=== PATIENT | female | born 1945 | race Two or more races ===

== ENCOUNTER 2018-01-15 13:13 | Emergency (ER) | END 2018-01-15 16:19 | disposition home or self-care (01) ==

== ENCOUNTER 2019-02-20 20:00 | Inpatient (IN) | payer MEDICAID, OTHER ==
[~2019-02-20] VITALS: Ht 160 cm; Wt 76.3 kg
[~2019-02-20 20:00] MED LIST: IBUP800T48 PO
[2019-02-20] MEDS ORDERED: SOD CHLORIDE 0.9% 500 ML IV STA (23:11)
[2019-02-20] MEDS ORDERED: PIPER-TAZO 3.375 GM IV (PMX) 100 ML IVPB STA (23:11)
[2019-02-20] MEDS ORDERED: ONDANSETRON 4 MG INJ IV STA (23:11)
[2019-02-20] MEDS ORDERED: morphine 4 MG/ML VIAL IV STA (23:11)
[2019-02-20] MEDS ORDERED: VANCOMYCIN 1 GM (PMX) 250 ML IVPB ONE (23:30)
[2019-02-20] MEDS ORDERED: SOD CHLORIDE 0.9% 760 ML IV ONE (23:30)
[2019-02-20] MEDS ORDERED: NS + KCL 40 MEQ 1,000 ML IV SCH (23:49)
[2019-02-20] MEDS ORDERED: NS + KCL 30 MEQ 1,000 ML IV SCH (23:49)
[2019-02-20] MEDS ORDERED: D10/0.45% NACL + KCL 40 MEQ 1,000 ML IV SCH (23:49)
[2019-02-20] MEDS ORDERED: DEXTROSE 10%/0.45% NACL 1,000 ML IV SCH (23:49)
[2019-02-20] MEDS ORDERED: D10/0.45% NACL + KCL 30 MEQ 1,000 ML IV SCH (23:49)
[2019-02-20] MEDS ORDERED: SOD CHLORIDE 0.9% 1,000 ML IV SCH (23:49)
[2019-02-21] VITALS (15 sets, daily range): BP systolic 105–135; BP diastolic 54–64; PULSE 58–76; RESP 12–61
[2019-02-21] MEDS ORDERED: INSULIN REGULAR, HUMAN 100 UNIT in SOD CHLORIDE 0.9% 100 ML IV SCH ×2
[2019-02-21] MEDS ORDERED: LACTATED RINGER'S 760 ML IV ONE
[2019-02-21] MEDS: SOD CHLORIDE 0.9% 1,000 ML IV SCH ×2 (01:19→13:37)
[2019-02-21] MEDS ORDERED: DEXTROSE 50% 50 ML SYRINGE IV PRN ×6 (01:30→06:00)
[2019-02-21] MEDS ORDERED: ONDANSETRON 4 MG INJ IV PRN ×2 (01:30→21:30)
[2019-02-21] MEDS ORDERED: VANCOMYCIN IV PER PHARMACY XX SCH (01:30)
[2019-02-21] MEDS ORDERED: INSULIN HUMAN REGULAR 100 UNIT in SOD CHLORIDE 0.9% 99 ML IV SCH (02:00)
[2019-02-21] MEDS ORDERED: ONDANSETRON 4 MG INJ IV STA (02:09)
[2019-02-21] MEDS ORDERED: morphine 4 MG/ML VIAL IV STA (02:09)
--- NOTE | 2019-02-21 02:09 | ERD ---
ER Documentation Chief Complaint Chief Complaint R TOE SWELLING X'S 2 MONTHS; HX OF DM HPI This very pleasant 74-year female right toe swelling for 2 months. She is a history of diabetes mellitus. She is this infection has been going on and off. And that over the past 4 days had purulent drainage and increased pain. No fevers no chills. His fingersticks have been reading high at home. She states she is been compliant with her diabetic regimen. No other current complaints. ROS All systems reviewed and are negative except as per history of present illness. Medications Home Meds Active Scripts Ibuprofen* (Motrin*) 800 Mg Tab, 800 MG PO Q6H PRN for PAIN AND OR ELEVATED TEMP, #30 TAB Prov:SOPHIE PICHARDO MD 01/15/18 Allergies Allergies: Coded Allergies: No Known Allergy (Unverified , 01/15/18) PMhx/Soc History of Surgery: No Anesthesia Reaction: No Hx Neurological Disorder: No Hx Respiratory Disorders: No Hx Cardiac Disorders: No Hx Psychiatric Problems: No Hx Miscellaneous Medical Probl: Yes Hx Alcohol Use: No Hx Substance Use: No Hx Tobacco Use: No Physical Exam Vitals Vital Signs Date Temp Pulse Resp B/P (MAP) Pulse Ox O2 O2 Flow FiO2 Time Delivery Rate 02/20/19 97.8 81 18 136/64 98 20:07 (88) Physical Exam Const: No acute distress Head: Atraumatic Eyes: Normal Conjunctiva ENT: Normal External Ears, Nose and Mouth. Neck: Full range of motion. No meningismus. Resp: Clear to auscultation bilaterally Cardio: Regular rate and rhythm, no murmurs Abd: Soft, non tender, non distended. Normal bowel sounds Skin: No petechiae or rashes Back: No midline or flank tenderness Ext: Right great toe shows gangrenous changes with purulent drainage Neur: Awake and alert Psych: Normal Mood and Affect Result Diagram: 02/20/19 2311 02/20/19 2311 Results 24 hrs Laboratory Tests Test 02/20/19 23:04 02/20/19 23:11 02/20/19 23:22 02/20/19 23:23 POC Venous 1.6 mmol/L Lactate White Blood 9.3 10^3/ul Count Red Blood Count 4.25 10^6/ul Hemoglobin 12.2 g/dl Hematocrit 39.4 % Mean Corpuscular 92.7 fl Volume Mean Corpuscular 28.7 pg Hemoglobin Mean Corpuscular 31.0 g/dl Hemoglobin Jory nt Red Cell 13.4 % Distribution Width Platelet Count 312 10^3/UL Mean Platelet 10.4 fl Volume Immature 1.200 % Granulocytes % Neutrophils % 67.8 % Lymphocytes % 20.8 % Monocytes % 7.9 % Eosinophils % 1.7 % Basophils % 0.6 % Nucleated Red 0.0 /100WBC Blood Cells % Immature 0.110 10^3/ul Granulocytes # Neutrophils # 6.3 10^3/ul Lymphocytes # 1.9 10^3/ul Monocytes # 0.7 10^3/ul Eosinophils # 0.2 10^3/ul Basophils # 0.1 10^3/ul Nucleated Red 0.0 10^3/ul Blood Cells # Urine Color STRAW Urine Clarity CLEAR Urine pH 5.0 Urine Specific 1.017 [place] Urine Ketones NEGATIVE mg/dL Urine Nitrite NEGATIVE mg/dL Urine Bilirubin NEGATIVE mg/dL Urine NEGATIVE mg/dL Urobilinogen Urine Leukocyte NEGATIVE Ana Luisa/ul Esterase Urine Hemoglobin NEGATIVE mg/dL Urine Glucose 3+ mg/dL Urine Total NEGATIVE mg/dl Protein Sodium Level 132 mmol/L Potassium Level 4.8 mmol/L Chloride Level 102 mmol/L Carbon Dioxide 22 mmol/L Level Anion Gap 8 Blood Urea 46 mg/dl Nitrogen Creatinine 1.37 mg/dl Est Glomerular mL/min Filtrat Rate mL/min Glucose Level 620 mg/dl Hemoglobin A1c % Calcium Level 8.4 mg/dl Phosphorus Level 4.5 mg/dl Magnesium Level 2.2 mg/dl Total Bilirubin 0.2 mg/dl Direct Bilirubin 0.00 mg/dl Indirect 0.2 mg/dl Bilirubin Aspartate Amino 15 IU/L Transf (AST/SGOT ) Alanine 20 IU/L Aminotransferase (ALT/SGPT) Alkaline 222 IU/L Phosphatase Total Protein 6.0 g/dl Albumin 3.1 g/dl Globulin 2.90 g/dl Albumin/Globulin 1.06 Ratio Lipase 38 U/L Bedside Glucose > 595 mg/dL Blood Gas Blood venous Specimen Source Arterial Blood 02/20/2019 11:40 Date Drawn :05 PM Arterial Blood VENOUS LINE Gas Puncture Site Dread Test N/A Venous Blood pH 7.305 Venous Blood 43.4 mmHG pCO2 (Temp Corrected) Venous Blood pO2 29.8 mmHG (Temp Corrected) Venous Blood 21.1 mmol/L HCO3 Venous Blood 56.9 mmHG Oxygen Saturation Venous Blood -5.0 mmol/L Base Excess Venous Blood 11.7 g/dl Total Hemoglobin Venous Blood 56.3 % Oxyhemoglobin Venous Blood 0.2 % Methemoglobin Carboxyhemoglobi 0.9 % n Blood Gas 37.0 C Temperature Blood Gas ROOM AIR Modality FiO2 21.0 % Blood Gas MG Notified Whom Blood Gas 02/20/2019 11:46 Notified Time :45 PM Current Medications Medications Dose Sig/Chente Start Time Status Last (Trade) Ordered Route PRN Stop Time Admin Dose Reason Admin Sodium 500 ml @ Q1H STAT 02/20/19 DC 02/20/19 Chloride 500 mls/hr IV 23:11 23:19 02/21/19 00:10 Morphine 4 mg ONCE STAT 02/20/19 DC 02/20/19 Sulfate IV 23:11 23:19 (morphine) 02/20/19 23:13 Ondansetron 4 mg ONCE STAT 02/20/19 DC 02/20/19 HCl (Zofran IV 23:11 23:18 Inj) 02/20/19 23:13 Piperacillin 100 ml @ ONCE STAT 02/20/19 DC 02/20/19 Sod/ 200 mls/hr IVPB 23:11 23:18 Tazobactam 02/20/19 23:40 Sod Vancomycin 250 ml @ ONCE ONCE 02/20/19 DC 02/21/19 HCl 125 mls/hr IVPB 23:30 00:05 02/21/19 01:29 Sodium 760 ml @ ONCE ONCE 02/20/19 DC 02/21/19 Chloride 760 mls/hr IV 23:30 00:05 02/21/19 00:29 Potassium 1,000 ml @ Q0M IV 02/20/19 DC Chloride/Sodi 0 mls/hr 23:49 um Chloride 02/21/19 01:19 Potassium 1,000 ml @ Q0M IV 02/20/19 DC Chloride/Dext 0 mls/hr 23:49 cher/ Sod Cl 02/21/19 01:19 Potassium 1,000 ml @ Q0M IV 02/20/19 DC Chloride/Sodi 0 mls/hr 23:49 um Chloride 02/21/19 01:19 Potassium 1,000 ml @ Q0M IV 5/28/19 DC Chloride/Dext 0 mls/hr 23:49 cher/ Sod Cl 02/21/19 01:19 Sodium 1,000 ml @ Q0M IV 02/20/19 DC Chloride 0 mls/hr 23:49 02/21/19 01:19 1,000 ml @ Q0M IV 02/20/19 DC Dextrose/Sodi 0 mls/hr 23:49 um Chloride 02/21/19 01:19 Insulin 101 ml @ ER DKA 02/21/19 DC Human 7.63 mls/hr PROTOCOL IV 00:00 Regular 100 02/21/19 01:19 unit/ Sodium Chloride Lactated 760 ml @ ONCE ONCE 02/21/19 DC 02/21/19 Ringer's 760 mls/hr IV 00:00 00:05 02/21/19 01:19 HYPOGLYCEM 02/21/19 DC Miscellaneous HYPOGLYCEMIA PROTOCOL PRN 00:00 TREATMENT XX 02/21/19 01:19 Information .HYPOGLYCEMIA (* PROTOCOL Miscellaneous Pharmacy Order) Dextrose 50 ml Q15M PRN 02/21/19 DC (D50w IV 00:00 Syringe) .DECREASED 02/21/19 01:19 GLUCOSE Dextrose 25 ml Q15M PRN 02/21/19 DC (D50w IV 00:00 Syringe) .DECREASED 02/21/19 01:19 GLUCOSE Sodium 1,000 ml @ Q10H IV 02/21/19 Chloride 100 mls/hr 01:19 Ondansetron 4 mg Q6H PRN 02/21/19 HCl (Zofran IV NAUSEA 01:30 Inj) AND/OR VOMITING 650 mg Q6H PRN 02/21/19 Acetaminophen PO PAIN 01:30 (Tylenol LEVEL 1-3 OR Liquid) FEVER 1 tab Q6H PRN 02/21/19 Acetaminophen PO PAIN 01:30 / LEVEL 4-6 Hydrocodone Bitart ([place] (5/325)) 40 mg DAILY@06 02/21/19 DC Pantoprazole IV 06:00 (Protonix 02/21/19 06:00 Iv) Discontinue PROTOCOL 02/21/19 DC Miscellaneous all previ... ONCE XX 01:30 02/21/19 01:31 Information (* Miscellaneous Pharmacy Order) Diagnostic 1 ea Q1H XX 02/21/19 Test (Pha) 01:30 (Accu-Chek) Insulin 100 ml @ 0 PER 02/21/19 Human mls/hr PROTOCOL IV 02:00 Regular 100 unit/ Sodium Chloride Treatment Per 02/21/19 Miscellaneous of protocol XX 01:30 Hypoglycemia: Information 1.BG 51... (* Miscellaneous Pharmacy Order) Dextrose 25 ml Q15M PRN 02/21/19 (D50w IV 01:30 Syringe) .DECREASED GLUCOSE Dextrose 50 ml Q15M PRN 02/21/19 (D50w IV 01:30 Syringe) .DECREASED GLUCOSE Famotidine 20 mg DAILY IV 02/21/19 (Pepcid Iv) 09:00 Vancomycin VANCOMYCIN PER 02/21/19 HCl (Vanco PER PHARMACY PROTOCOL XX 01:30 Iv Per Pharmacy) Piperacillin 100 ml @ Q6 IVPB 02/21/19 Sod/ 200 mls/hr 06:00 Tazobactam Sod Vancomycin 250 ml @ Q24H IVPB 02/21/19 HCl 125 mls/hr 22:00 Procedures/MDM Medical decision m[age]-year-old female who has a previously infected diabetic foot ulcer, rule out osteomyelitis. At this point patient has been started on antibiotics post blood cultures. Blood sugar also read high, and VBG showed early acidosis and lowered bicarbonate. She was started on DKA protocol secondary to likely early diabetic ketoacidosis triggered by infection. Patient will be admitted to the intensive care unit to Dr. Gomez. X-ray Toe 2V Interpreted by me: Bones: [No fracture] Joints: [No dislocation] Foreign body: [None] Critical Care: Time: 45 minutes, independent of any separately billable procedural time Treatments/Evaluations: Close monitoring and treatment of unstable vital signs, cardiorespiratory, and neurologic status, while maintaining tight balance of fluid, respiratory, and cardiac interventions. Departure Diagnosis: Primary Impression: Diabetic foot ulcer Diabetic foot ulcer location: unspecified part of foot Diabetes mellitus type: type 2 Laterality: right Non-pressure ulcer stage: unspecified non-pressure ulcer stage Qualified Codes: E11.621 - Type 2 diabetes mellitus with foot ulcer; L97.519 - Non-pressure chronic ulcer of other part of right foot with unspecified severity Additional Impression: Diabetic ketoacidosis Diabetes mellitus type: type 2 Diabetes mellitus complication detail: without coma Qualified Codes: E11.10 - Type 2 diabetes mellitus with ketoacidosis without coma Condition: Serious ELY MCKNIGHT February 21, 2019 02:09
[2019-02-21] MEDS: ACCU-CHEK XX SCH ×5 (03:17→06:29)
[2019-02-21] MEDS ORDERED: INSU100C SQ (03:29)
[2019-02-21] MEDS ORDERED: ATOR40TA68 PO (03:29)
[2019-02-21] MEDS ORDERED: CARV3.1260 PO (03:29)
[2019-02-21] MEDS ORDERED: LOSA50TA14 PO (03:29)
[2019-02-21] MEDS ORDERED: MONT10TA24 PO (03:29)
[2019-02-21] MEDS ORDERED: DOCU-159 PO (03:29)
[2019-02-21] MEDS ORDERED: FER325 PO (03:29)
[2019-02-21] MEDS ORDERED: LEVO137T3 PO (03:29)
[2019-02-21] MEDS ORDERED: AMLO-147 PO (03:29)
[2019-02-21] MEDS ORDERED: LANT3I SQ (03:29)
[2019-02-21] MEDS ORDERED: CHOL200078 PO (03:29)
--- NOTE | 2019-02-21 05:39 | HP ---
Date/Time of Note Date/Time of Note DATE: 02/21/19 TIME: 05:32 Assessment/Plan VTE Prophylaxis SCD applied (from Nsg): Yes (Left lower extremity) Pharmacological prophylaxis: NA/contraindicated Pharm contraindication: low risk/ambulating Lines/Catheters IV Catheter Type (from Nrsg): Saline Lock Assessment/Plan Hospital Course This is a 74 female being admitted to the ICU floor for: #1 Poorly controlled diabetes mellitus: Patient presents with blood sugars in the 600s. Patient does not appear to be in DKA. Initiate insulin GTT, monitor patient in the ICU. Will downgrade the patient to telemetry once we can better control patient's blood sugars. We will check hemoglobin A 1C. Patient does take Lantus 53 units at night. check a1c. #2 right great toe gas gangrene: X-ray: Infectious process at the right great toe with soft tissue air suggesting gas gangrene. Patient does have tenderness to the right great toe, does appear cyanotic. At the current time with the patient on broad-spectrum antibiotics of vancomycin and Zosyn. await culture results. venous doppler/arterial dopplers of bilateral lower extremities. Consult cardiology for preop clearance. Patient n.p.o. at the current time as patient may likely go to the operative room today if she is cleared by cardiology. #3. Coronary artery disease: History of stents. History of NH. Continue beta- carol, statin. Will consult cardiology for preop clearance. #4 hypertension: Resume patient's home medication #5 diabetes mellitus: We will check hemoglobin A 1C, currently on insulin sliding scale as per #1. #6 hypothyroidism: Continue levothyroxine, check TSH #7 hyperlipidemia: Continue statin, check lipid panel #8 DVT GI prophylaxis: SCDs to the left lower extremity, Protonix Further treatment strategy will be implemented as per the clinical course. Result Diagram: 02/20/19231002/20/191 Results 24hrs Laboratory Tests Test 02/20/19 23:04 02/20/19 23:11 02/20/19 23:22 02/20/19 23:23 POC Venous 1.6 Lactate White Blood Count 9.3 # Red Blood Count 4.25 Hemoglobin 12.2 Hematocrit 39.4 Mean Corpuscular 92.7 Volume Mean Corpuscular 28.7 L Hemoglobin Mean Corpuscular 31.0 L Hemoglobin Concen t Red Cell 13.4 Distribution Width Platelet Count 312 # Mean Platelet 10.4 Volume Immature 1.200 H Granulocytes % Neutrophils % 67.8 Lymphocytes % 20.8 Monocytes % 7.9 Eosinophils % 1.7 Basophils % 0.6 Nucleated Red 0.0 Blood Cells % Immature 0.110 H Granulocytes # Neutrophils # 6.3 Lymphocytes # 1.9 Monocytes # 0.7 Eosinophils # 0.2 Basophils # 0.1 Nucleated Red 0.0 Blood Cells # Urine Color STRAW Urine Clarity CLEAR Urine pH 5.0 Urine Specific 1.017 [place] Urine Ketones NEGATIVE Urine Nitrite NEGATIVE Urine Bilirubin NEGATIVE Urine NEGATIVE Urobilinogen Urine Leukocyte NEGATIVE Esterase Urine Hemoglobin NEGATIVE Urine Glucose 3+ H Urine Total NEGATIVE Protein Sodium Level 132 L Potassium Level 4.8 Chloride Level 102 Carbon Dioxide 22 Level Anion Gap 8 Blood Urea 46 H Nitrogen Creatinine 1.37 H Est Glomerular Filtrat Rate mL/min Glucose Level 620 *H Hemoglobin A1c Calcium Level 8.4 Phosphorus Level 4.5 Magnesium Level 2.2 Total Bilirubin 0.2 Direct Bilirubin 0.00 Indirect 0.2 Bilirubin Aspartate Amino 15 Transf (AST/SGOT) Alanine 20 Aminotransferase (ALT/SGPT) Alkaline 222 H Phosphatase Total Protein 6.0 L Albumin 3.1 L Globulin 2.90 Albumin/Globulin 1.06 Ratio Lipase 38 Bedside Glucose > 595 *H Blood Gas Blood venous Specimen Source Arterial Blood 02/20/2019 11:40: Date Drawn 05 PM Arterial Blood VENOUS LINE Gas Puncture Site Dread Test N/A Venous Blood pH 7.305 L Venous Blood pCO2 43.4 (Temp Corrected) Venous Blood pO2 29.8 H (Temp Corrected) Venous Blood HCO3 21.1 L Venous Blood 56.9 Oxygen Saturation Venous Blood Base -5.0 Excess Venous Blood 11.7 Total Hemoglobin Venous Blood 56.3 Oxyhemoglobin Venous Blood 0.2 Methemoglobin Carboxyhemoglobin 0.9 Blood Gas 37.0 Temperature Blood Gas ROOM AIR Modality FiO2 21.0 Blood Gas MG Notified Whom Blood Gas 02/20/2019 11:46: Notified Time 45 PM Test 02/21/19 02:07 02/21/19 03:20 02/21/19 04:52 Bedside Glucose 417 *H 359 H 267 H HPI/ROS Admit Date/Time Admit Date/Time Hx of Present Illness Chief complaint: Right great toe swelling x4 days this is a 74-year-old female with past medical history of hypertension, diabetes mellitus, hyperlipidemia, hypothyroidism,Arthritis, coronary disease who presents to the emergency department complaining of right toe pain x4 days. Patient reports that she has noticed right great toe swelling and discoloration over the last 4 days. She also has swelling of her anterior foot and tenderness to palpation. She denies any fevers. But does report chills. She has noticed that her great toe has started to become blue. She recently returned from [place]. Allergies: NKDA Medications: Amlodipine 10 mg daily Atorvastatin 40 mg nightly Carvedilol 3.125 p.o. twice daily daily Colace 100 mg p.o. daily Ferrous sulfate 325 mg p.o. daily Lantus 53 units nightly Levothyroxine 137 mcg p.o. daily Losartan 50 mg p.o. daily Montelukast 10 mg p.o. daily Insulin lispro 4 units subcu a.m. Vitamin D3 ROS Const: As per HPI Eyes : No pain discharge or redness or change in visual acuity ENT: No pain, sore throat, congestion, congestion, dysphagia or discharge Respiratory: No shortness of breath, cough, sputum, wheezing, or pleuritic pain Cardiovascular: No chest pain, palpitation, PND, or edema GI : no change in appetite, abdominal pain, nausea, vomiting, diarrhea, constipation, or change in the color his stool Genitourinary: No dysuria, hematuria, flank pain , discharge or CVA tenderness Musculoskeletal: As per HPI Skin: As per HPI Neuro: No headache, dizziness, syncope, seizure, focal weakness Endocrine: No polyuria, polydipsia, temperature intolerance Psych: No hallucination, depression, anxiety or suicidal ideation PMH/Family/Social Past Medical History Hypertension, diabetes mitis, hyperlipidemia, hypothyroidism, coronary artery disease, arthritis, history of NH Medications Current Medications Sodium Chloride 1,000 ml @ 100 mls/hr Q10H IV Last administered on 02/21/19at :19; Admin Dose 100 MLS/HR; Start 02/21/19 at 01:19 Ondansetron HCl (Zofran Inj) 4 mg Q6H PRN IV NAUSEA AND/OR VOMITING; Start 02/21/19 at 01:30 Acetaminophen (Tylenol Liquid) 650 mg Q6H PRN PO PAIN LEVEL 1-3 OR FEVER; Start 02/21/19 at 01:30 Acetaminophen/ Hydrocodone Bitart ([place] (5/325)) 1 tab Q6H PRN PO PAIN LEVEL 4-6; Start 02/21/19 at 01:30 Diagnostic Test (Pha) (Accu-Chek) 1 ea Q1H XX Last administered on 02/21/19at 04:54; Admin Dose 1 EA; Start 02/21/19 at 01:30 Insulin Human Regular 100 unit/ Sodium Chloride 100 ml @ 0 mls/hr PER PROTOCOL IV Last administered on 02/21/19at 03:24; Admin Dose 0 MLS/HR; Start 02/21/19 at 02:00 Miscellaneous Information (* Miscellaneous Pharmacy Order) Treatment of Hypoglycemia: 1.BG 51... Per protocol XX ; Start 02/21/19 at 01:30 Dextrose (D50w Syringe) 25 ml Q15M PRN IV .DECREASED GLUCOSE; Start 02/21/19 at 01:30 Dextrose (D50w Syringe) 50 ml Q15M PRN IV .DECREASED GLUCOSE; Start 02/21/19 at 01:30 Famotidine (Pepcid Iv) 20 mg DAILY IV ; Start 02/21/19 at 09:00 Vancomycin HCl (Vanco Iv Per Pharmacy) VANCOMYCIN PER PHARMACY PER PROTOCOL XX ; Start 02/21/19 at 01:30 Piperacillin Sod/ Tazobactam Sod 100 ml @ 200 mls/hr Q6 IVPB ; Start 02/21/19 at 06:00 Vancomycin HCl 250 ml @ 125 mls/hr Q24H IVPB ; Start 02/21/19 at 22:00 Coded Allergies: No Known Allergy (Unverified , 02/21/19) Past Surgical History Coronary artery disease status post stenting Family History Significant Family History: no pertinent family hx Social History Alcohol Use: none Smoking Status: Never smoker Drug Use: none Exam/Review of Systems Vital Signs Vitals Vital Signs Date Temp Pulse Resp B/P (MAP) Pulse Ox O2 O2 Flow FiO2 Time Delivery Rate 02/20/19 97.8 81 18 136/64 98 20:07 (88) Intake and Output 02/20/19 02/20/19 02/21/19 1515:00 23:00 07:00 IntakeIntake Total 2370 ml BalanceBalance 2370 ml Exam Exam General: Patient is pleasant female currently lying in bed in moderate distress from pain in her right toe HEENT: Atraumatic, normocephalic. The pupils are equal, round and reactive. Extraocular motor are intact Neck: Supple with full range of motion. No rigidity or meningismus Chest: Nontender Lungs: Clear to auscultation bilaterally no crackles rales or wheezing Heart: Normal S1-S2, Regular rhythm and rate. Abdomen: Soft , nontender, nondistended , bowel sounds are present. No guarding no rebound tenderness , No masses or organomegaly. No costovertebral temporal angle mass Extremities: Normal to inspection, no edema no cyanosis Vascular: Diminished distal pedal pulses of the right lower extremity Skin: Cyanosis noted to the right great toe, tender to palpation, swelling noted of the anterior right foot and tender to palpation Neurologic: Normal mental status, speech normal, cranial nerves II through XII are intact, motor and sensory are intact, no focal weakness Additional Comments PROCEDURE: X-ray right great toe. CLINICAL INDICATION: Right great toe pain. TECHNIQUE: AP, lateral and oblique views of the right great toe. COMPARISON: None. FINDINGS: Soft tissue defect and swelling are seen over the right toe, with soft tissue emphysema seen at the medial aspect of the base of the first distal phalanx, suggesting an infectious process. No definite osseous destruction or erosions are seen to suggest osteomyelitis in this region. If there is strong persistent concern for osteomyelitis an MRI examination would be of further use. Vascular calcifications. No acute fracture dislocation. Plantar and posterior dorsal calcaneal enthesophytes are present. IMPRESSION: 1. Infectious process at the right great toe with soft tissue air suggesting gas gangrene. 2. No plain film evidence of osteomyelitis. 3. If there is strong persistent concern for osteomyelitis an MRI examination would be of further use. RPTAT: [facility] Physician Baldev Date Time Electronically viewed and signed by Physician Baldev on 02/21/2019 00:24 RS/ CC: ELY MCKNIGHT [id number] IGOR SCHWAB February 21, 2019 05:39
[2019-02-21] MEDS: PIPER-TAZO 3.375 GM IV (PMX) 100 ML IVPB SCH ×3 (05:57→17:08)
[2019-02-21] MEDS ORDERED: GLUCOSE GEL 15 GRAM TUBE BUCCAL PRN (06:00)
[2019-02-21] MEDS ORDERED: GLUCAGON 1 MG INJ IM PRN (06:00)
[2019-02-21] MEDS ORDERED: PANTOPRAZOLE 40 MG INJ IV SCH (06:00)
[2019-02-21] MEDS ORDERED: INSULIN GLARGINE [LANTus] (100 UNITS/ML) SYG SC ONE (06:00)
[2019-02-21] MEDS ORDERED: GLUCOSE GEL 15 GRAM TUBE PO PRN ×2 (06:00)
[2019-02-21] MEDS: morphine 4 MG/ML VIAL IV PRN (06:48)
[2019-02-21] MEDS: INSULIN ASPART [NOVOLOG] 3 ML PEN SC SCH ×5 (08:00→22:56)
[2019-02-21] MEDS: LEVOTHYROXINE 137 MCG TAB PO SCH (08:08)
[2019-02-21] MEDS: DOCUSATE SODIUM 100 MG CAP PO SCH (09:00)
[2019-02-21] MEDS ORDERED: AMLODIPINE 10 MG TAB PO SCH (09:00)
[2019-02-21] MEDS ORDERED: INSULIN LISPRO 4 UNIT SQ SCH (09:00)
[2019-02-21] MEDS: FERROUS SULFATE (EC) 325 MG TAB PO SCH (09:31)
[2019-02-21] MEDS: FAMOTIDINE 20 MG INJ IV SCH (09:31)
--- NOTE | 2019-02-21 10:25 | PN ---
Date/Time of Note Date/Time of Note DATE: 02/21/19 TIME: 10:15 Assessment/Plan VTE Prophylaxis SCD applied (from Nsg): Yes (Left lower extremity) Pharmacological prophylaxis: NA/contraindicated Pharm contraindication: surgical contra Lines/Catheters IV Catheter Type (from Nrsg): Saline Lock Assessment/Plan Assessment/Plan 1. Right great toe gas gangrene - seen on Xray - Podiatry consultation appreciated and plans for OR today once cleared by Cardiology for intervention - Continue on broad spectrum antibiotics - Arterial imaging studies ordered 2. Poorly controlled diabetes mellitus - A1c noted - Will continue home Lantus and adjust as needed - initially on insulin drip but weaned off with improvement in sugars - once infection improves, hopefully help with glucose control 3. h/o CAD s/p PCI - continue home medications - Cardiology consultation placed for cardiac clearance for intervention 4. HTN - continue home medications with holding parameters 5. hypothyroidism - TSH elevated and will check T3 and T4 levels. may be elevated in setting of sepsis - will adjust levothyroxine if needed 6. Hyperlipidemia - continue statin 7. Disposition - Will keep NPO for anticipated procedure this afternoon. Cardiac clearance pending Result Diagram: 02/21/19 0539 02/21/19 0541 Results 24hrs Laboratory Tests Test 02/20/19 23:04 02/20/19 23:11 02/20/19 23:22 02/20/19 23:23 POC Venous 1.6 Lactate White Blood Count 9.3 # Red Blood Count 4.25 Hemoglobin 12.2 Hematocrit 39.4 Mean Corpuscular 92.7 Volume Mean Corpuscular 28.7 L Hemoglobin Mean Corpuscular 31.0 L Hemoglobin Concen t Red Cell 13.4 Distribution Width Platelet Count 312 # Mean Platelet 10.4 Volume Immature 1.200 H Granulocytes % Neutrophils % 67.8 Lymphocytes % 20.8 Monocytes % 7.9 Eosinophils % 1.7 Basophils % 0.6 Nucleated Red 0.0 Blood Cells % Immature 0.110 H Granulocytes # Neutrophils # 6.3 Lymphocytes # 1.9 Monocytes # 0.7 Eosinophils # 0.2 Basophils # 0.1 Nucleated Red 0.0 Blood Cells # Urine Color STRAW Urine Clarity CLEAR Urine pH 5.0 Urine Specific 1.017 [place] Urine Ketones NEGATIVE Urine Nitrite NEGATIVE Urine Bilirubin NEGATIVE Urine NEGATIVE Urobilinogen Urine Leukocyte NEGATIVE Esterase Urine Hemoglobin NEGATIVE Urine Glucose 3+ H Urine Total NEGATIVE Protein Sodium Level 132 L Potassium Level 4.8 Chloride Level 102 Carbon Dioxide 22 Level Anion Gap 8 Blood Urea 46 H Nitrogen Creatinine 1.37 H Est Glomerular Filtrat Rate mL/min Glucose Level 620 *H Hemoglobin A1c Calcium Level 8.4 Phosphorus Level 4.5 Magnesium Level 2.2 Total Bilirubin 0.2 Direct Bilirubin 0.00 Indirect 0.2 Bilirubin Aspartate Amino 15 Transf (AST/SGOT) Alanine 20 Aminotransferase (ALT/SGPT) Alkaline 222 H Phosphatase Total Protein 6.0 L Albumin 3.1 L Globulin 2.90 Albumin/Globulin 1.06 Ratio Lipase 38 Bedside Glucose > 595 *H Blood Gas Blood venous Specimen Source Arterial Blood 02/20/2019 11:40: Date Drawn 05 PM Arterial Blood VENOUS LINE Gas Puncture Site Dread Test N/A Venous Blood pH 7.305 L Venous Blood pCO2 43.4 (Temp Corrected) Venous Blood pO2 29.8 H (Temp Corrected) Venous Blood HCO3 21.1 L Venous Blood 56.9 Oxygen Saturation Venous Blood Base -5.0 Excess Venous Blood 11.7 Total Hemoglobin Venous Blood 56.3 Oxyhemoglobin Venous Blood 0.2 Methemoglobin Carboxyhemoglobin 0.9 Blood Gas 37.0 Temperature Blood Gas ROOM AIR Modality FiO2 21.0 Blood Gas MG Notified Whom Blood Gas 02/20/2019 11:46: Notified Time 45 PM Test 02/21/19 02:07 02/21/19 03:20 02/21/19 04:52 02/21/19 05:39 Bedside Glucose 417 *H 359 H 267 H 192 White Blood Count 8.5 Red Blood Count 3.86 L Hemoglobin 11.1 L Hematocrit 35.2 L Mean Corpuscular 91.2 Volume Mean Corpuscular 28.8 L Hemoglobin Mean Corpuscular 31.5 L Hemoglobin Concen t Red Cell 13.3 Distribution Width Platelet Count 278 Mean Platelet 10.0 Volume Immature 1.400 H Granulocytes % Neutrophils % 63.9 Lymphocytes % 23.3 Monocytes % 8.8 Eosinophils % 1.9 Basophils % 0.7 Nucleated Red 0.0 Blood Cells % Immature 0.120 H Granulocytes # Neutrophils # 5.4 Lymphocytes # 2.0 Monocytes # 0.8 Eosinophils # 0.2 Basophils # 0.1 Nucleated Red 0.0 Blood Cells # Test 02/21/19 05:41 02/21/19 06:26 02/21/19 08:04 02/21/19 09:34 Sodium Level 140 Potassium Level 4.3 Chloride Level 114 H Carbon Dioxide 21 Level Anion Gap 5 Blood Urea 34 #H Nitrogen Creatinine 1.02 H Est Glomerular Filtrat Rate mL/min Glucose Level 195 # Hemoglobin A1c > 14.0 H Calcium Level 7.7 L Magnesium Level 2.0 Total Bilirubin 0.2 Direct Bilirubin 0.00 Indirect 0.2 Bilirubin Aspartate Amino 13 L Transf (AST/SGOT) Alanine 21 Aminotransferase (ALT/SGPT) Alkaline 150 H Phosphatase Total Protein 5.2 L Albumin 2.5 L Globulin 2.70 Albumin/Globulin 0.92 Ratio Triglycerides 170 H Level Cholesterol Level 160 LDL Cholesterol, 83 Calculated HDL Cholesterol 43 Cholesterol/HDL 3.7 Ratio Thyroid 32.100 H Stimulating Hormone (TSH) Bedside Glucose 124 132 123 Subjective 24 Hr Interval Summary Free Text/Dictation Patient states pain has improved after given Morphine. Denies any other issues or new complaints. Plans for I&D this afternoon once cleared by Cardiology. Family at bedside. Exam/Review of Systems Exam Vitals Vital Signs Date Temp Pulse Resp B/P (MAP) Pulse Ox O2 O2 Flow FiO2 Time Delivery Rate 02/21/19 66 16 119/58 96 Room Air 09:04 (78) 02/20/19 97.8 20:07 Intake and Output 02/20/19 02/20/19 02/21/19 1515:00 23:00 07:00 IntakeIntake Total 2370 ml BalanceBalance 2370 ml Exam General: no acute distress. answering questions appropriately Neck: Supple Chest: Nontender Lungs: Clear to auscultation bilaterally no crackles rales or wheezing Heart: Normal S1-S2, Regular rhythm and rate. Abdomen: Soft , nontender, nondistended , bowel sounds are present. No guarding no rebound tenderness Extremities: Normal to inspection, no edema no cyanosis Skin: White discoloration right toe with lesion appreciated. tender to palpation, swelling noted of the anterior right foot and tender to palpation, diminished pulse Results Results 24hrs Laboratory Tests Test 02/20/19 23:04 02/20/19 23:11 02/20/19 23:22 02/20/19 23:23 POC Venous 1.6 Lactate White Blood Count 9.3 # Red Blood Count 4.25 Hemoglobin 12.2 Hematocrit 39.4 Mean Corpuscular 92.7 Volume Mean Corpuscular 28.7 L Hemoglobin Mean Corpuscular 31.0 L Hemoglobin Concen t Red Cell 13.4 Distribution Width Platelet Count 312 # Mean Platelet 10.4 Volume Immature 1.200 H Granulocytes % Neutrophils % 67.8 Lymphocytes % 20.8 Monocytes % 7.9 Eosinophils % 1.7 Basophils % 0.6 Nucleated Red 0.0 Blood Cells % Immature 0.110 H Granulocytes # Neutrophils # 6.3 Lymphocytes # 1.9 Monocytes # 0.7 Eosinophils # 0.2 Basophils # 0.1 Nucleated Red 0.0 Blood Cells # Urine Color STRAW Urine Clarity CLEAR Urine pH 5.0 Urine Specific 1.017 [place] Urine Ketones NEGATIVE Urine Nitrite NEGATIVE Urine Bilirubin NEGATIVE Urine NEGATIVE Urobilinogen Urine Leukocyte NEGATIVE Esterase Urine Hemoglobin NEGATIVE Urine Glucose 3+ H Urine Total NEGATIVE Protein Sodium Level 132 L Potassium Level 4.8 Chloride Level 102 Carbon Dioxide 22 Level Anion Gap 8 Blood Urea 46 H Nitrogen Creatinine 1.37 H Est Glomerular Filtrat Rate mL/min Glucose Level 620 *H Hemoglobin A1c Calcium Level 8.4 Phosphorus Level 4.5 Magnesium Level 2.2 Total Bilirubin 0.2 Direct Bilirubin 0.00 Indirect 0.2 Bilirubin Aspartate Amino 15 Transf (AST/SGOT) Alanine 20 Aminotransferase (ALT/SGPT) Alkaline 222 H Phosphatase Total Protein 6.0 L Albumin 3.1 L Globulin 2.90 Albumin/Globulin 1.06 Ratio Lipase 38 Bedside Glucose > 595 *H Blood Gas Blood venous Specimen Source Arterial Blood 02/20/2019 11:40: Date Drawn 05 PM Arterial Blood VENOUS LINE Gas Puncture Site Dread Test N/A Venous Blood pH 7.305 L Venous Blood pCO2 43.4 (Temp Corrected) Venous Blood pO2 29.8 H (Temp Corrected) Venous Blood HCO3 21.1 L Venous Blood 56.9 Oxygen Saturation Venous Blood Base -5.0 Excess Venous Blood 11.7 Total Hemoglobin Venous Blood 56.3 Oxyhemoglobin Venous Blood 0.2 Methemoglobin Carboxyhemoglobin 0.9 Blood Gas 37.0 Temperature Blood Gas ROOM AIR Modality FiO2 21.0 Blood Gas MG Notified Whom Blood Gas 02/20/2019 11:46: Notified Time 45 PM Test 02/21/19 02:07 02/21/19 03:20 02/21/19 04:52 02/21/19 05:39 Bedside Glucose 417 *H 359 H 267 H 192 White Blood Count 8.5 Red Blood Count 3.86 L Hemoglobin 11.1 L Hematocrit 35.2 L Mean Corpuscular 91.2 Volume Mean Corpuscular 28.8 L Hemoglobin Mean Corpuscular 31.5 L Hemoglobin Concen t Red Cell 13.3 Distribution Width Platelet Count 278 Mean Platelet 10.0 Volume Immature 1.400 H Granulocytes % Neutrophils % 63.9 Lymphocytes % 23.3 Monocytes % 8.8 Eosinophils % 1.9 Basophils % 0.7 Nucleated Red 0.0 Blood Cells % Immature 0.120 H Granulocytes # Neutrophils # 5.4 Lymphocytes # 2.0 Monocytes # 0.8 Eosinophils # 0.2 Basophils # 0.1 Nucleated Red 0.0 Blood Cells # Test 02/21/19 05:41 02/21/19 06:26 02/21/19 08:04 02/21/19 09:34 Sodium Level 140 Potassium Level 4.3 Chloride Level 114 H Carbon Dioxide 21 Level Anion Gap 5 Blood Urea 34 #H Nitrogen Creatinine 1.02 H Est Glomerular Filtrat Rate mL/min Glucose Level 195 # Hemoglobin A1c > 14.0 H Calcium Level 7.7 L Magnesium Level 2.0 Total Bilirubin 0.2 Direct Bilirubin 0.00 Indirect 0.2 Bilirubin Aspartate Amino 13 L Transf (AST/SGOT) Alanine 21 Aminotransferase (ALT/SGPT) Alkaline 150 H Phosphatase Total Protein 5.2 L Albumin 2.5 L Globulin 2.70 Albumin/Globulin 0.92 Ratio Triglycerides 170 H Level Cholesterol Level 160 LDL Cholesterol, 83 Calculated HDL Cholesterol 43 Cholesterol/HDL 3.7 Ratio Thyroid 32.100 H Stimulating Hormone (TSH) Bedside Glucose 124 132 123 Medications Medication Current Medications Sodium Chloride 1,000 ml @ 100 mls/hr Q10H IV Last administered on 02/21/19at 01:19; Admin Dose 100 MLS/HR; Start 02/21/19 at 01:19 Ondansetron HCl (Zofran Inj) 4 mg Q6H PRN IV NAUSEA AND/OR VOMITING Last administered on 02/21/19at 06:47; Admin Dose 4 MG; Start 02/21/19 at 01:30 Acetaminophen (Tylenol Liquid) 650 mg Q6H PRN PO PAIN LEVEL 1-3 OR FEVER; Start 02/21/19 at 01:30 Acetaminophen/ Hydrocodone Bitart ([place] (5/325)) 1 tab Q6H PRN PO PAIN LEVEL 4-6; Start 02/21/19 at 01:30 Diagnostic Test (Pha) (Accu-Chek) 1 ea Q1H XX Last administered on 02/21/19at 0 6:29; Admin Dose 1 EA; Start 02/21/19 at 01:30 Insulin Human Regular 100 unit/ Sodium Chloride 100 ml @ 0 mls/hr PER PROTOCOL IV Last administered on 02/21/19at 03:24; Admin Dose 0 MLS/HR; Start 02/21/19 at 02:00 Miscellaneous Information (* Miscellaneous Pharmacy Order) Treatment of Hypoglycemia: 1.BG 51... Per protocol XX ; Start 02/21/19 at 01:30 Dextrose (D50w Syringe) 25 ml Q15M PRN IV .DECREASED GLUCOSE; Start 02/21/19 at 01:30 Dextrose (D50w Syringe) 50 ml Q15M PRN IV .DECREASED GLUCOSE; Start 02/21/19 at 01:30 Famotidine (Pepcid Iv) 20 mg DAILY IV Last administered on 02/21/19at 09:31; Admin Dose 20 MG; Start 02/21/19 at 09:00 Vancomycin HCl (Vanco Iv Per Pharmacy) VANCOMYCIN PER PHARMACY PER PROTOCOL XX ; Start 02/21/19 at 01:30 Piperacillin Sod/ Tazobactam Sod 100 ml @ 200 mls/hr Q6 IVPB Last administered on 02/21/19at 05:57; Admin Dose 200 MLS/HR; Start 02/21/19 at 06:00 Vancomycin HCl 250 ml @ 125 mls/hr Q24H IVPB ; Start 02/21/19 at 22:00 Morphine Sulfate (morphine) 4 mg Q4H PRN IV SEVERE PAIN LEVEL 7-10 Last administered on 02/21/19at 06:48; Admin Dose 4 MG; Start 02/21/19 at 05:30 Amlodipine Besylate (Norvasc) 10 mg DAILY PO ; Start 02/21/19 at 09:00 Atorvastatin Calcium (Lipitor) 40 mg QHS PO ; Start 02/21/19 at 21:00 Carvedilol (Coreg) 3.125 mg BID PO ; Start 02/21/19 at 09:00 Docusate Sodium (Colace) 100 mg DAILY PO ; Start 02/21/19 at 09:00 Ferrous Sulfate (Ferrous Sulfate (Ec)) 325 mg QAM PO Last administered on 02/21/19at 09:31; Admin Dose 325 MG; Start 02/21/19 at 09:00 Levothyroxine Sodium (Synthroid) 137 mcg BEFORE BREAKFAST PO Last administered on 02/21/19at 08:08; Admin Dose 137 MCG; Start 02/21/19 at 07:00 Montelukast Sodium (Singulair) 10 mg QHS PO ; Start 02/21/19 at 21:00 Insulin Aspart (Novolog Insulin Pen) NOVOLOG *MILD* ALGORI... Q4 SC ; Start 02/21/19 at 09:00 Miscellaneous Information 1 ea NOTE XX ; Start 02/21/19 at 06:00 Glucose (Glutose) 15 gm Q15M PRN PO DECREASED GLUCOSE; Start 02/21/19 at 06:00 Glucose (Glutose) 22.5 gm Q15M PRN PO DECREASED GLUCOSE; Start 02/21/19 at 06:00 Dextrose (D50w Syringe) 25 ml Q15M PRN IV DECREASED GLUCOSE; Start 02/21/19 at 06:00 Dextrose (D50w Syringe) 50 ml Q15M PRN IV DECREASED GLUCOSE; Start 02/21/19 at 06:00 Glucagon (Glucagen) 1 mg Q15M PRN IM DECREASED GLUCOSE; Start 02/21/19 at 06:00 Glucose (Glutose) 15 gm Q15M PRN BUCCAL DECREASED GLUCOSE; Start 02/21/19 at 06:00 Insulin Aspart (Novolog Insulin Pen) 4 unit WITH BREAKFAST SC ; Start 02/21/19 at 08:00 XUAN PROCTOR MD February 21, 2019 10:25
--- NOTE | 2019-02-21 11:08 | CONS ---
DATE OF ADMISSION: 02/20/2019 DATE OF CONSULTATION: 02/21/2019 REASON FOR CONSULTATION: Right foot infection. REFERRING PHYSICIAN: Dr. Abdon Schwab. HISTORY OF PRESENT ILLNESS: This is a 74-year-old female relates a blister to the right foot for mony roximately 4 to 5 days. She denies any injury or puncture. The patient is with severe hyperglycemia . PAST MEDICAL HISTORY: Hypertension, diabetes, hyperlipidemia, hypothyroidism, coronary artery diseas e. ALLERGIES: NO KNOWN DRUG ALLERGIES. MEDICATIONS: 1. Amlodipine 10 mg daily. 2. Atorvastatin 40 mg at bedtime. 3. Carvedilol 3.125 mg p.o. b.i.d. 4. Colace 100 mg p.o. daily. 5. Ferrous sulfate 325 mg p.o. daily. 6. Lantus 53 units nightly. 7. Levothyroxine 137 mcg p.o. daily. 8. Losartan 50 mg p.o. daily. 9. Montelukast 10 mg p.o. daily. 10. Insulin lispro 4 units subcutaneously, a.m. 11. Vitamin D3. 12. The patient is currently on vancomycin and Zosyn. ALLERGIES: NONE. SOCIAL HISTORY: She denies any tobacco. PHYSICAL EXAMINATION: VITAL SIGNS: Temperature 97.8, pulse is 81, respiratory rate is 18, blood pressure is 112/58, pulse oximetry is 96% on room air. GENERAL: The patient is alert, oriented. She has mild distress, pain to the right foot, currently g etting noninvasive vascular testing. The patient with nonpalpable pedal pulses. The foot is warm. The right hallux is cyanotic and cold. There is an ulceration with gangrene on the medial aspect of the hallux. The toe has a onychomycosis. There is small ulceration at distal aspect of the right 3r d toe. Ascending cellulitis from the tip of the toe, proximal to the metatarsophalangeal joint, pain with palpation. IMAGING STUDIES: X-rays reveal gas gangrene at the great toe. LABORATORIES: WBC 8.5, hemoglobin 11.1, hematocrit 35.2, platelets 278, sodium 140, potassium 4.3, c hloride 114, CO2 21, BUN 34, creatinine 1.02. ASSESSMENT: 1. Right foot gas gangrene. 2. Infected diabetic foot ulceration. 3. Diabetes with hyperglycemia. PLAN: The patient is pending further diagnostic testing. We will obtain arterial noninvasives. The patient will be kept n.p.o., obtain improved blood sugar for further coordination of care. The katty ent's education was provided. Obtain consent for right foot incision and drainage with possible open amputation of hallux. Dr. Rich has consulted. Dictated By: ERIN HAYWOOD DPM RB/MARIANNA Conf#: [id number] DID#: [id number] CC: JUSTINE GARAY MD; ERIN HAYWOOD DPM; ABDON SCHWAB MD;*EndCC*
--- NOTE | 2019-02-21 12:22 | CONS ---
Assessment/Plan Assessment/Plan Hospital Course (Demo Recall) Preoperative cardiac risk stratification Gas gangrene right foot CAD with history of PCI, most recently December 2017 Diabetes, uncontrolled Hypertension Dyslipidemia -Patient with evidence of gas gangrene of the right foot and has been evaluated by podiatry and pending I&D -Patient with history of coronary artery disease, last PCI was December 2017. Patient with good exercise capacity and able to climb 2 flights of stairs without symptoms of chest pain or shortness of breath -ECG with no significant ischemic abnormalities -Patient with multiple risk factors, given her cardiac history, patient is at an intermediate risk for any untoward cardiac events for her podiatry procedure. The benefits likely outweigh the risks. Consultation Date/Type/Reason Admit Date/Time Type of Consult Cardiology Reason for Consultation Preoperative cardiac risk stratification Date/Time of Note DATE: 02/21/19 TIME: 12:15 Hx of Present Illness This is a 74-year-old female with past medical history of coronary artery disease status post most recent PCI December 2017, diabetes, hypertension who presents with worsening toe pain. As per podiatry, patient found to have gas gangrene of the right foot and is pending incision and drainage. Cardiology condition was requested preoperatively for risk stratification. As mentioned, her last PCI was in December 2017 in outside facility. She otherwise denies exertional chest pain or shortness of breath. She tells me she can climb at least 2 flights of stairs without symptoms of chest pain or shortness of breath. Her main complaints are leg pain and fatigue. 12 point review of systems was performed with all pertinent positives and negati ves mentioned above and all else is negative Past Medical History Medical History: coronary artery disease, diabetes, high cholesterol, hypertension Home Meds Active Scripts Ibuprofen* (Motrin*) 800 Mg Tab, 800 MG PO Q6H PRN for PAIN AND OR ELEVATED TEMP, #30 TAB Prov:SOPHIE PICHARDO MD 01/15/18 Reported Medications Insulin Lispro (Humalog) 100 Unit/1 Ml Cartridge, 4 UNIT SQ QAM, EA 02/21/19 Amlodipine Besylate* (Amlodipine Besylate*) 10 Mg Tablet, 10 MG PO DAILY, #30 TAB 02/21/19 Losartan Potassium* (Losartan Potassium*) 50 Mg Tablet, 50 MG PO QPM, TAB 02/21/19 Docusate Sodium* (Docusate Sodium*) 100 Mg Capsule, 100 MG PO DAILY, #30 CAP 02/21/19 Levothyroxine Sodium* (Levothyroxine Sodium*) 137 Mcg Tablet, 137 MCG PO BEFORE BREAKFAST, #30 TAB 02/21/19 Ferrous Sulfate* (Ferrous Sulfate*) 325 Mg Tabec, 325 MG PO QAM, TAB 02/21/19 Montelukast Sodium* (Montelukast Sodium*) 10 Mg Tablet, 10 MG PO QHS, #30 TAB 02/21/19 Cholecalciferol (Vitamin D3) (Vitamin D3) 2,000 Unit Tab.chew, 2000 UNIT PO QPM, TAB.CHEW 02/21/19 Carvedilol* (Carvedilol*) 3.125 Mg Tablet, 3.125 MG PO BID for 90 Days, #180 TK 1 TAB PO BID 02/21/19 Insulin Glargine* (Lantus*) 100 Unit/Ml Soln, 53 UNITS SQ QHS ADM 53 UNI SC HS 02/21/19 Atorvastatin* (Atorvastatin*) 40 Mg Tablet, 40 MG PO QHS for 90 Days, #90 TK 1 T PO QD 02/21/19 Medications Current Medications Sodium Chloride 1,000 ml @ 75 mls/hr [id number] IV Last administered on 02/21/19at 01:19; Admin Dose 100 MLS/HR; Start 02/21/19 at 01:19 Ondansetron HCl (Zofran Inj) 4 mg Q6H PRN IV NAUSEA AND/OR VOMITING Last administered on 02/21/19at 06:47; Admin Dose 4 MG; Start 02/21/19 at 01:30 Acetaminophen (Tylenol Liquid) 650 mg Q6H PRN PO PAIN LEVEL 1-3 OR FEVER; Start 02/21/19 at 01:30 Acetaminophen/ Hydrocodone Bitart ([place] (5/325)) 1 tab Q6H PRN PO PAIN LEVEL 4-6; Start 02/21/19 at 01:30 Diagnostic Test (Pha) (Accu-Chek) 1 ea Q1H XX Last administered on 02/21/19at 06:29; Admin Dose 1 EA; Start 02/21/19 at 01:30 Insulin Human Regular 100 unit/ Sodium Chloride 100 ml @ 0 mls/hr PER PROTOCOL IV Last administered on 02/21/19at 03:24; Admin Dose 0 MLS/HR; Start 02/21/19 at 02:00 Miscellaneous Information (* Miscellaneous Pharmacy Order) Treatment of Hypoglycemia: 1.BG 51... Per protocol XX ; Start 02/21/19 at 01:30 Dextrose (D50w Syringe) 25 ml Q15M PRN IV .DECREASED GLUCOSE; Start 02/21/19 at 01:30 Dextrose (D50w Syringe) 50 ml Q15M PRN IV .DECREASED GLUCOSE; Start 02/21/19 at 01:30 Famotidine (Pepcid Iv) 20 mg DAILY IV Last administered on 02/21/19at 09:31; Admin Dose 20 MG; Start 02/21/19 at 09:00 Vancomycin HCl (Vanco Iv Per Pharmacy) VANCOMYCIN PER PHARMACY PER PROTOCOL XX ; Start 02/21/19 at 01:30 Piperacillin Sod/ Tazobactam Sod 100 ml @ 200 mls/hr Q6 IVPB Last administered on 02/21/19at 05:57; Admin Dose 200 MLS/HR; Start 02/21/19 at 06:00 Vancomycin HCl 250 ml @ 125 mls/hr Q24H IVPB ; Start 02/21/19 at 22:00 Morphine Sulfate (morphine) 4 mg Q4H PRN IV SEVERE PAIN LEVEL 7-10 Last admin istered on 02/21/19at 06:48; Admin Dose 4 MG; Start 02/21/19 at 05:30 Amlodipine Besylate (Norvasc) 10 mg DAILY PO ; Start 02/21/19 at 09:00 Atorvastatin Calcium (Lipitor) 40 mg QHS PO ; Start 02/21/19 at 21:00 Carvedilol (Coreg) 3.125 mg BID PO ; Start 02/21/19 at 09:00 Docusate Sodium (Colace) 100 mg DAILY PO ; Start 02/21/19 at 09:00 Ferrous Sulfate (Ferrous Sulfate (Ec)) 325 mg QAM PO Last administered on 02/21/19at 09:31; Admin Dose 325 MG; Start 02/21/19 at 09:00 Levothyroxine Sodium (Synthroid) 137 mcg BEFORE BREAKFAST PO Last administered on 02/21/19at 08:08; Admin Dose 137 MCG; Start 02/21/19 at 07:00 Montelukast Sodium (Singulair) 10 mg QHS PO ; Start 02/21/19 at 21:00 Insulin Aspart (Novolog Insulin Pen) NOVOLOG *MILD* ALGORI... Q4 SC ; Start 02/21/19 at 09:00 Miscellaneous Information 1 ea NOTE XX ; Start 02/21/19 at 06:00 Glucose (Glutose) 15 gm Q15M PRN PO DECREASED GLUCOSE; Start 02/21/19 at 06:00 Glucose (Glutose) 22.5 gm Q15M PRN PO DECREASED GLUCOSE; Start 02/21/19 at 06:00 Dextrose (D50w Syringe) 25 ml Q15M PRN IV DECREASED GLUCOSE; Start 02/21/19 at 06:00 Dextrose (D50w Syringe) 50 ml Q15M PRN IV DECREASED GLUCOSE; Start 02/21/19 at 06:00 Glucagon (Glucagen) 1 mg Q15M PRN IM DECREASED GLUCOSE; Start 02/21/19 at 06:00 Glucose (Glutose) 15 gm Q15M PRN BUCCAL DECREASED GLUCOSE; Start 02/21/19 at 06:00 Insulin Aspart (Novolog Insulin Pen) 4 unit WITH BREAKFAST SC ; Start 02/21/19 at 08:00 Allergies: Coded Allergies: No Known Allergy (Unverified , 02/21/19) Past Surgical History Past Surgical Hx: angioplasty Social History Alcohol Use: none Smoking Status: Never smoker Drug Use: none Exam/Review of Systems Vital Signs Vitals Vital Signs Date Temp Pulse Resp B/P (MAP) Pulse Ox O2 O2 Flow FiO2 Time Delivery Rate 02/21/19 66 16 119/58 96 Room Air 09:04 (78) 02/20/19 97.8 20:07 Intake and Output 02/20/19 02/20/19 02/21/19 1515:00 23:00 07:00 IntakeIntake Total 2370 ml BalanceBalance 2370 ml Exam Constitutional: alert, oriented (No apparent distress) Head: normocephalic Respiratory: clear to auscultation, normal air movement Cardiovascular: regular rate and rhythm (S1-S2 heard) Gastrointestinal: soft, non-tender, bowel sounds Extremities: other (No significant edema, right toe laceration and evidence of infection) Labs Result Diagram: 02/21/19 0539 02/21/19 0541 Results 24hrs Laboratory Tests Test 02/20/19 23:04 02/20/19 23:11 02/20/19 23:22 02/20/19 23:23 POC Venous 1.6 Lactate White Blood Count 9.3 # Red Blood Count 4.25 Hemoglobin 12.2 Hematocrit 39.4 Mean Corpuscular 92.7 Volume Mean Corpuscular 28.7 L Hemoglobin Mean Corpuscular 31.0 L Hemoglobin Concen t Red Cell 13.4 Distribution Width Platelet Count 312 # Mean Platelet 10.4 Volume Immature 1.200 H Granulocytes % Neutrophils % 67.8 Lymphocytes % 20.8 Monocytes % 7.9 Eosinophils % 1.7 Basophils % 0.6 Nucleated Red 0.0 Blood Cells % Immature 0.110 H Granulocytes # Neutrophils # 6.3 Lymphocytes # 1.9 Monocytes # 0.7 Eosinophils # 0.2 Basophils # 0.1 Nucleated Red 0.0 Blood Cells # Urine Color STRAW Urine Clarity CLEAR Urine pH 5.0 Urine Specific 1.017 [place] Urine Ketones NEGATIVE Urine Nitrite NEGATIVE Urine Bilirubin NEGATIVE Urine NEGATIVE Urobilinogen Urine Leukocyte NEGATIVE Esterase Urine Hemoglobin NEGATIVE Urine Glucose 3+ H Urine Total NEGATIVE Protein Sodium Level 132 L Potassium Level 4.8 Chloride Level 102 Carbon Dioxide 22 Level Anion Gap 8 Blood Urea 46 H Nitrogen Creatinine 1.37 H Est Glomerular Filtrat Rate mL/min Glucose Level 620 *H Hemoglobin A1c Calcium Level 8.4 Phosphorus Level 4.5 Magnesium Level 2.2 Total Bilirubin 0.2 Direct Bilirubin 0.00 Indirect 0.2 Bilirubin Aspartate Amino 15 Transf (AST/SGOT) Alanine 20 Aminotransferase (ALT/SGPT) Alkaline 222 H Phosphatase Total Protein 6.0 L Albumin 3.1 L Globulin 2.90 Albumin/Globulin 1.06 Ratio Lipase 38 Bedside Glucose > 595 *H Blood Gas Blood venous Specimen Source Arterial Blood 02/20/2019 11:40: Date Drawn 05 PM Arterial Blood VENOUS LINE Gas Puncture Site Dread Test N/A Venous Blood pH 7.305 L Venous Blood pCO2 43.4 (Temp Corrected) Venous Blood pO2 29.8 H (Temp Corrected) Venous Blood HCO3 21.1 L Venous Blood 56.9 Oxygen Saturation Venous Blood Base -5.0 Excess Venous Blood 11.7 Total Hemoglobin Venous Blood 56.3 Oxyhemoglobin Venous Blood 0.2 Methemoglobin Carboxyhemoglobin 0.9 Blood Gas 37.0 Temperature Blood Gas ROOM AIR Modality FiO2 21.0 Blood Gas MG Notified Whom Blood Gas 02/20/2019 11:46: Notified Time 45 PM Test 02/21/19 02:07 02/21/19 03:20 02/21/19 04:52 02/21/19 05:39 Bedside Glucose 417 *H 359 H 267 H 192 White Blood Count 8.5 Red Blood Count 3.86 L Hemoglobin 11.1 L Hematocrit 35.2 L Mean Corpuscular 91.2 Volume Mean Corpuscular 28.8 L Hemoglobin Mean Corpuscular 31.5 L Hemoglobin Concen t Red Cell 13.3 Distribution Width Platelet Count 278 Mean Platelet 10.0 Volume Immature 1.400 H Granulocytes % Neutrophils % 63.9 Lymphocytes % 23.3 Monocytes % 8.8 Eosinophils % 1.9 Basophils % 0.7 Nucleated Red 0.0 Blood Cells % Immature 0.120 H Granulocytes # Neutrophils # 5.4 Lymphocytes # 2.0 Monocytes # 0.8 Eosinophils # 0.2 Basophils # 0.1 Nucleated Red 0.0 Blood Cells # Test 02/21/19 05:40 02/21/19 05:41 02/21/19 06:26 02/21/19 08:04 Free Thyroxine 0.39 L Thyroxine (T4) 2.1 L Free 2.36 L Triiodothyronine (T3) pg/mL Sodium Level 140 Potassium Level 4.3 Chloride Level 114 H Carbon Dioxide 21 Level Anion Gap 5 Blood Urea 34 #H Nitrogen Creatinine 1.02 H Est Glomerular Filtrat Rate mL/min Glucose Level 195 # Hemoglobin A1c > 14.0 H Calcium Level 7.7 L Magnesium Level 2.0 Total Bilirubin 0.2 Direct Bilirubin 0.00 Indirect 0.2 Bilirubin Aspartate Amino 13 L Transf (AST/SGOT) Alanine 21 Aminotransferase (ALT/SGPT) Alkaline 150 H Phosphatase Total Protein 5.2 L Albumin 2.5 L Globulin 2.70 Albumin/Globulin 0.92 Ratio Triglycerides 170 H Level Cholesterol Level 160 LDL Cholesterol, 83 Calculated HDL Cholesterol 43 Cholesterol/HDL 3.7 Ratio Thyroid 32.100 H Stimulating Hormone (TSH) Bedside Glucose 124 132 Test 02/21/19 09:34 Bedside Glucose 123 Imaging Imaging ECG demonstrates sinus rhythm at 64 bpm, PACs, QRS 90 ms, nonspecific ST abnormalities Medications Medications Current Medications Sodium Chloride 1,000 ml @ 75 mls/hr [id number] IV Last administered on 02/21/19at 01:19; Admin Dose 100 MLS/HR; Start 02/21/19 at 01:19 Ondansetron HCl (Zofran Inj) 4 mg Q6H PRN IV NAUSEA AND/OR VOMITING Last admin istered on 02/21/19at 06:47; Admin Dose 4 MG; Start 02/21/19 at 01:30 Acetaminophen (Tylenol Liquid) 650 mg Q6H PRN PO PAIN LEVEL 1-3 OR FEVER; Start 02/21/19 at 01:30 Acetaminophen/ Hydrocodone Bitart ([place] (5/325)) 1 tab Q6H PRN PO PAIN LEVEL 4-6; Start 02/21/19 at 01:30 Diagnostic Test (Pha) (Accu-Chek) 1 ea Q1H XX Last administered on 02/21/19at 06:29; Admin Dose 1 EA; Start 02/21/19 at 01:30 Insulin Human Regular 100 unit/ Sodium Chloride 100 ml @ 0 mls/hr PER PROTOCOL IV Last administered on 02/21/19at 03:24; Admin Dose 0 MLS/HR; Start 02/21/19 at 02:00 Miscellaneous Information (* Miscellaneous Pharmacy Order) Treatment of Hypoglycemia: 1.BG 51... Per protocol XX ; Start 02/21/19 at 01:30 Dextrose (D50w Syringe) 25 ml Q15M PRN IV .DECREASED GLUCOSE; Start 02/21/19 at 01:30 Dextrose (D50w Syringe) 50 ml Q15M PRN IV .DECREASED GLUCOSE; Start 02/21/19 at 01:30 Famotidine (Pepcid Iv) 20 mg DAILY IV Last administered on 02/21/19at 09:31; Admin Dose 20 MG; Start 02/21/19 at 09:00 Vancomycin HCl (Vanco Iv Per Pharmacy) VANCOMYCIN PER PHARMACY PER PROTOCOL XX ; Start 02/21/19 at 01:30 Piperacillin Sod/ Tazobactam Sod 100 ml @ 200 mls/hr Q6 IVPB Last administered on 02/21/19at 05:57; Admin Dose 200 MLS/HR; Start 02/21/19 at 06:00 Vancomycin HCl 250 ml @ 125 mls/hr Q24H IVPB ; Start 02/21/19 at 22:00 Morphine Sulfate (morphine) 4 mg Q4H PRN IV SEVERE PAIN LEVEL 7-10 Last ad ministered on 02/21/19at 06:48; Admin Dose 4 MG; Start 02/21/19 at 05:30 Amlodipine Besylate (Norvasc) 10 mg DAILY PO ; Start 02/21/19 at 09:00 Atorvastatin Calcium (Lipitor) 40 mg QHS PO ; Start 02/21/19 at 21:00 Carvedilol (Coreg) 3.125 mg BID PO ; Start 02/21/19 at 09:00 Docusate Sodium (Colace) 100 mg DAILY PO ; Start 02/21/19 at 09:00 Ferrous Sulfate (Ferrous Sulfate (Ec)) 325 mg QAM PO Last administered on 02/21/19at 09:31; Admin Dose 325 MG; Start 02/21/19 at 09:00 Levothyroxine Sodium (Synthroid) 137 mcg BEFORE BREAKFAST PO Last administered on 02/21/19at 08:08; Admin Dose 137 MCG; Start 02/21/19 at 07:00 Montelukast Sodium (Singulair) 10 mg QHS PO ; Start 02/21/19 at 21:00 Insulin Aspart (Novolog Insulin Pen) NOVOLOG *MILD* ALGORI... Q4 SC ; Start 02/21/19 at 09:00 Miscellaneous Information 1 ea NOTE XX ; Start 02/21/19 at 06:00 Glucose (Glutose) 15 gm Q15M PRN PO DECREASED GLUCOSE; Start 02/21/19 at 06:00 Glucose (Glutose) 22.5 gm Q15M PRN PO DECREASED GLUCOSE; Start 02/21/19 at 06:00 Dextrose (D50w Syringe) 25 ml Q15M PRN IV DECREASED GLUCOSE; Start 02/21/19 at 06:00 Dextrose (D50w Syringe) 50 ml Q15M PRN IV DECREASED GLUCOSE; Start 02/21/19 at 06:00 Glucagon (Glucagen) 1 mg Q15M PRN IM DECREASED GLUCOSE; Start 02/21/19 at 06:00 Glucose (Glutose) 15 gm Q15M PRN BUCCAL DECREASED GLUCOSE; Start 02/21/19 at 06:00 Insulin Aspart (Novolog Insulin Pen) 4 unit WITH BREAKFAST SC ; Start 02/21/19 at 08:00 Jeremy Alarcon DO February 21, 2019 12:22
[2019-02-21] MEDS ORDERED: ACCU-CHEK XX SCH (17:00)
--- NOTE | 2019-02-21 19:24 | HPN ---
Date/Time of Note Date/Time of Note DATE: 02/21/19 TIME: 19:24 Interval H&P Admission Note Pt. seen H&P reviewed: No system changes NASRA ART DPM February 21, 2019 19:24
--- NOTE | 2019-02-21 19:44 | PREAC ---
Date/Time of Note Date/Time of Note DATE: 02/21/19 TIME: 19:41 Anesthesia Eval and Record Evaluation Time Pre-Procedure Interview DATE: 02/21/19 TIME: 19:41 Age 74 Sex female NPO: 8 hrs Preoperative diagnosis Rt great toe necrosis Planned procedure Rt great toe I&D Past Medical History Past Medical History: Includes Cardio: HTN, Dyslipidemia Endo: Diabetes, Hypothyroid GI: Morbid obesity Surgery & Anesthesia Issues No known issue Meds Anticoagulation: No Beta Noris within 24 hr: No Reason Beta Noris not given: Pt. not on B-Noris Active Scripts Ibuprofen* (Motrin*) 800 Mg Tab, 800 MG PO Q6H PRN for PAIN AND OR ELEVATED TEMP, #30 TAB Prov:SOPHIE PICHARDO MD 01/15/18 Reported Medications Insulin Lispro (Humalog) 100 Unit/1 Ml Cartridge, 4 UNIT SQ QAM, EA 02/21/19 Amlodipine Besylate* (Amlodipine Besylate*) 10 Mg Tablet, 10 MG PO DAILY, #30 TAB 02/21/19 Losartan Potassium* (Losartan Potassium*) 50 Mg Tablet, 50 MG PO QPM, TAB 02/21/19 Docusate Sodium* (Docusate Sodium*) 100 Mg Capsule, 100 MG PO DAILY, #30 CAP 02/21/19 Levothyroxine Sodium* (Levothyroxine Sodium*) 137 Mcg Tablet, 137 MCG PO BEFORE BREAKFAST, #30 TAB 02/21/19 Ferrous Sulfate* (Ferrous Sulfate*) 325 Mg Tabec, 325 MG PO QAM, TAB 02/21/19 Montelukast Sodium* (Montelukast Sodium*) 10 Mg Tablet, 10 MG PO QHS, #30 TAB 02/21/19 Cholecalciferol (Vitamin D3) (Vitamin D3) 2,000 Unit Tab.chew, 2000 UNIT PO QPM, TAB.CHEW 02/21/19 Carvedilol* (Carvedilol*) 3.125 Mg Tablet, 3.125 MG PO BID for 90 Days, #180 TK 1 TAB PO BID 02/21/19 Insulin Glargine* (Lantus*) 100 Unit/Ml Soln, 53 UNITS SQ QHS ADM 53 UNI SC HS 02/21/19 Atorvastatin* (Atorvastatin*) 40 Mg Tablet, 40 MG PO QHS for 90 Days, #90 TK 1 T PO QD 02/21/19 Current Medications Sodium Chloride 1,000 ml @ 75 mls/hr [id number] IV Last administered on 02/21/19at 13:37; Admin Dose 75 MLS/HR; Start 02/21/19 at 01:19 Ondansetron HCl (Zofran Inj) 4 mg Q6H PRN IV NAUSEA AND/OR VOMITING Last admini stered on 02/21/19at 06:47; Admin Dose 4 MG; Start 02/21/19 at 01:30 Acetaminophen (Tylenol Liquid) 650 mg Q6H PRN PO PAIN LEVEL 1-3 OR FEVER; Start 02/21/19 at 01:30 Acetaminophen/ Hydrocodone Bitart ([place] (5/325)) 1 tab Q6H PRN PO PAIN LEVEL 4-6; Start 02/21/19 at 01:30 Insulin Human Regular 100 unit/ Sodium Chloride 100 ml @ 0 mls/hr PER PROTOCOL IV Last administered on 02/21/19at 03:24; Admin Dose 0 MLS/HR; Start 02/21/19 at 02:00 Miscellaneous Information (* Miscellaneous Pharmacy Order) Treatment of Hypoglycemia: 1.BG 51... Per protocol XX ; Start 02/21/19 at 01:30 Dextrose (D50w Syringe) 25 ml Q15M PRN IV .DECREASED GLUCOSE; Start 02/21/19 at 01:30 Dextrose (D50w Syringe) 50 ml Q15M PRN IV .DECREASED GLUCOSE; Start 02/21/19 at 01:30 Famotidine (Pepcid Iv) 20 mg DAILY IV Last administered on 02/21/19at 09:31; Admin Dose 20 MG; Start 02/21/19 at 09:00 Vancomycin HCl (Vanco Iv Per Pharmacy) VANCOMYCIN PER PHARMACY PER PROTOCOL XX ; Start 02/21/19 at 01:30 Piperacillin Sod/ Tazobactam Sod 100 ml @ 200 mls/hr Q6 IVPB Last administered on 02/21/19at 17:08; Admin Dose 200 MLS/HR; Start 02/21/19 at 06:00 Vancomycin HCl 250 ml @ 125 mls/hr Q24H IVPB ; Start 02/21/19 at 22:00 Morphine Sulfate (morphine) 4 mg Q4H PRN IV SEVERE PAIN LEVEL 7-10 Last administered on 02/21/19at 06:48; Admin Dose 4 MG; Start 02/21/19 at 05:30 Atorvastatin Calcium (Lipitor) 40 mg QHS PO ; Start 02/21/19 at 21:00 Carvedilol (Coreg) 3.125 mg BID PO ; Start 02/21/19 at 09:00 Docusate Sodium (Colace) 100 mg DAILY PO ; Start 02/21/19 at 09:00 Ferrous Sulfate (Ferrous Sulfate (Ec)) 325 mg QAM PO Last administered on 02/21/19at 09:31; Admin Dose 325 MG; Start 02/21/19 at 09:00 Levothyroxine Sodium (Synthroid) 137 mcg BEFORE BREAKFAST PO Last administered on 02/21/19at 08:08; Admin Dose 137 MCG; Start 02/21/19 at 07:00 Montelukast Sodium (Singulair) 10 mg QHS PO ; Start 02/21/19 at 21:00 Insulin Aspart (Novolog Insulin Pen) NOVOLOG *MILD* ALGORI... Q4 SC ; Start 02/21/19 at 09:00 Miscellaneous Information 1 ea NOTE XX ; Start 02/21/19 at 06:00 Glucose (Glutose) 15 gm Q15M PRN PO DECREASED GLUCOSE; Start 02/21/19 at 06:00 Glucose (Glutose) 22.5 gm Q15M PRN PO DECREASED GLUCOSE; Start 02/21/19 at 06:00 Dextrose (D50w Syringe) 25 ml Q15M PRN IV DECREASED GLUCOSE; Start 02/21/19 at 06:00 Dextrose (D50w Syringe) 50 ml Q15M PRN IV DECREASED GLUCOSE; Start 02/21/19 at 06:00 Glucagon (Glucagen) 1 mg Q15M PRN IM DECREASED GLUCOSE; Start 02/21/19 at 06:00 Glucose (Glutose) 15 gm Q15M PRN BUCCAL DECREASED GLUCOSE; Start 02/21/19 at 06:00 Insulin Aspart (Novolog Insulin Pen) 4 unit WITH BREAKFAST SC ; Start 02/21/19 at 08:00 Amlodipine Besylate (Norvasc) 5 mg DAILY PO ; Start 02/22/19 at 09:00 Meds reviewed: Yes Allergies Coded Allergies: No Known Allergy (Unverified , 02/21/19) Allergies Reviewed: Yes Labs/Studies Labs Reviewed: Reviewed by anesthesiologist Result Diagram: 02/21/19 0539 02/21/19 0541 Laboratory Tests 02/21/19 05:39 02/21/19 05:41 test: N/A Studies: ECG Pre-procedure Exam Last vitals Vital Signs Date Temp Pulse Resp B/P (MAP) Pulse Ox O2 O2 Flow FiO2 Time Delivery Rate 02/21/19 66 16:13 02/21/19 98.3 61 124/64 95 15:38 (84) 02/21/19 Room Air 12:48 Airway: Adequate mouth opening, Adequate thyromental dist Mallampati: Mallampati II Teeth: Normal Lung: Normal Heart: Normal ASA Physical Status ASA physical status: 4 Emergency: None Planned Anesthetic General/MAC: MAC Planned Pain Management Single shot nerve block, Parenteral pain med, Local by surgeon Pre-operative Attestations Prior to commencing anesthesia and surgery, the patient was re-evaluated, there was verification of: *The patient's identity *The results of appropriate recent lab work and preoperative vital signs *The above evaluation not changing prior to induction *Anesthetic plan, risk benefits, alternative and complications discussed with patient/family; questions answered; patient/family understands, accepts and wishes to proceed. LUKE SHEPPARD MD February 21, 2019 19:44
[2019-02-21] MEDS ORDERED: LIDOCAINE 1% (MPF) 30 ML INJ ONE (19:57)
--- NOTE | 2019-02-21 20:54 | RADRPT ---
Echocardiogram Report Patient Name: EDILIA SPEARSPatient ID: [id number] : [id number] (74y 1m)Study Date: 02/21/2019 10:43:24 AM Gender: FAccession #: [id number] Tech: Teresa Bray RDCS Location: [facility] Ref.Physician: IGOR SCHWAB Height(Cm): BSA: Weight(Kg): Quality: AdequateOrder Physician: IGOR SCHWAB Account #: Procedures: Echocardiographic Report: Transthoracic echocardiogram with complete 2D, M-Mode, and doppler examination. Indications: Pre-op. Measurements: 2D/M Mode Doppler Measurement Value Normal Range Measurement Value Normal Range LVIDd 2D 4.8 [ 3.8 - 5.2 ] cm AV Peak [place] 1.4 [ 100.0 - 170.0 ] cm/sec LVIDs 2D 2.4 [ 2.2 - 3.5 ] cm AV Peak PG 8.0 [ 2.0 - 9.0 ] mmHg LVPWd 2D 1.0 [ 0.6 - 0.9 ] cm LVOT Peak [place] 1.2 [ 70.0 - 110.0 ] cm/sec IVSd 2D 1.2 [ 0.6 - 0.9 ] cm LVOT Peak PG 6.0 [ 2.0 - 6.0 ] mmHg AoR Diam 2D 2.6 [ 2.3 - 3.1 ] cm TR Peak [place] 2.8 [ 100.0 - 280.0 ] cm/sec EDV 2D 106.0 [ 46.0 - 106.0 ] ml TR Peak PG 31.0 mmHg ESV 2D 20.2 [ 14.0 - 42.0 ] ml RVSP 34.0 [ 10.0 - 36.0 ] mmHg EF 2D 80.9 [ 54.0 - 74.0 ] percent RA Pressure 3.0 mmHg LA Dimen 2D 3.7 [ 2.7 - 3.8 ] cm Findings: Left Ventricle: Normal left ventricular systolic function. Normal left ventricular cavity size. Mild concentric left ventricular hypertrophy. Ejection fraction is visually estimated at 60 %. Tissue Doppler/Mitral Doppler indices are consistent with impaired relaxation (Stage I diastolic dysfunction). Right Ventricle: Normal right ventricular size. Normal right ventricular systolic function. Left Atrium: The left atrium is normal in size. Right Atrium: The right atrium is normal in size. Mitral Valve: Normal appearance of the mitral valve. Mild mitral annular calcification. Trace mitral regurgitation. Aortic Valve: Normal appearance of the aortic valve. No significant aortic stenosis or insufficiency. Tricuspid Valve: Normal appearance of the tricuspid valve. The estimated Peak RVSP is 34 mmHg. There is trace tricuspid regurgitation. Pulmonic Valve: Normal pulmonic valve appearance. Pericardium: Normal pericardium with no significant pericardial effusion. Aorta: Normal aortic root. IVC: Normal size and normal respiratory collapse consistent with normal right atrial pressure. Conclusions: Normal left ventricular systolic function. Normal left ventricular cavity size. Mild concentric left ventricular hypertrophy. Ejection fraction is visually estimated at 60 %. Tissue Doppler/Mitral Doppler indices are consistent with impaired relaxation (Stage I diastolic dysfunction). Normal right ventricular size. Normal right ventricular systolic function. The left atrium is normal in size. The right atrium is normal in size. No significant valvular stenosis or regurgitation seen. Normal pericardium with no significant pericardial effusion. Electronically Signed By: Jeremy Alarcon 2019-02-21 20:54:31 PDT
--- NOTE | 2019-02-21 21:08 | SIPON ---
Date/Time of Note Date/Time of Note DATE: 02/21/19 TIME: 21:08 Operative Report Preoperative Diagnosis Right hallux gas gangrene Right hallux diabetic ulcer DM2 with peripheral neuropathy PAD Postoperative Diagnosis Right hallux gas gangrene Right hallux diabetic ulcer DM2 with peripheral neuropathy PAD Operation/Procedure Performed right hallux excisional debridement Surgeon see signature line dental assistant instructor none Anesthesia: MAC Estimated blood loss: 0 - 10 ml's Transfusion Required none Specimen right hallux wound culture Grafts/Implants none Complications none NASRA ART DPM February 21, 2019 21:08
--- NOTE | 2019-02-21 21:16 | OPR ---
Date/Time of Note Date/Time of Note DATE: 02/21/19 TIME: 21:15 Operative Report Preoperative Diagnosis Right hallux gas gangrene Right hallux diabetic ulcer DM2 with peripheral neuropathy PAD Postoperative Diagnosis Right hallux gas gangrene Right hallux diabetic ulcer DM2 with peripheral neuropathy PAD Operation/Procedure Performed right hallux excisional debridement Surgeon see signature line Aged Or Disabled Carer none Anesthesia Type: MAC Estimated Blood Loss: 0 - 10 ml's Transfusion none Specimen right hallux wound culture Grafts/Implants none Complications none Indications 74 y/o diabetic F patient presented with gas gangrene infection to the right hallux. Patient had failed conservative measures and is amenable to surgical intervention. Pre-op X-rays of the foot and tib-fib views revealed no further progression of the gas infection and was localized to the right hallux. Addressed all of the patient's questions and concerns. No promises or guaran tees were given. Procedure Description Patient was brought into the OR and placed in the supine position. The right lower extremity was scrubbed, prepped, and draped in the usual aseptic fashion. A formal time out was conducted. Attention was directed to the right hallux. A local anesthetic block was administered to the right hallux. Excisional debridement of skin/subQ/ligament/fascia was performed of the right hallux ulcer site using a pickup and scissors. Necrotic tissue, skin slough, fibrotic tissue was removed along with 2-3mL of purulent drainage. Copious irrigation was used at the ulceration site and wound cultures were obtained. The wound did probe to bone and there was tunneling to the proximal aspect of the wound bed. 15cm2 of area was debrided. Post debridement wound measurement was 5 x 3 x 0.5cm. There was mild sanguinous bleeding appreciated to the surgical site. Upon copious irrigation, bacitracin and polymixin antibiotic powder was applied to the wound bed, packed open with 1/4in iodoform dressing, 4x4 betadine gauze, kerlix and dry sterile dressing. Patient was transferred to PACU with vital signs stable and neurovascular status intact. NASRA RAT DPM February 21, 2019 21:16
--- NOTE | 2019-02-21 21:21 | PAC ---
Date/Time of Note Date/Time of Note DATE: 02/21/19 TIME: 21:20 Post-Anesthesia Notes Post-Anesthesia Note Last documented vital signs Vital Signs Date Temp Pulse Resp B/P (MAP) Pulse Ox O2 O2 Flow FiO2 Time Delivery Rate 02/21/19 65 20:06 02/21/19 98.3 61 124/64 95 15:38 (84) 02/21/19 Room Air 12:48 Activity: WNL Respiratory function: WNL Cardiovascular function: WNL Mental status: Baseline Pain reasonably controlled: Yes Hydration appropriate: Yes Nausea/Vomiting absent: Yes Comments BP:118/72, P:68, Spo2:100%, T:98,8 LUKE SHEPPARD MD February 21, 2019 21:21
[2019-02-21] MEDS ORDERED: HYDROmorphONE 1 MG/5 ML IV SYRINGE IV PRN ×2 (21:30)
[2019-02-21] MEDS ORDERED: DIPHENHYDRAMINE 50 MG INJ IV PRN (21:30)
[2019-02-21] MEDS ORDERED: METOCLOPRAMIDE 10 MG INJ IV PRN (21:30)
[2019-02-21] MEDS ORDERED: MEPERIDINE 25 MG INJ IV PRN (21:30)
[2019-02-21] MEDS ORDERED: FENTAnyl 50 MCG/ML VIAL IV PRN (21:30)
[2019-02-21] MEDS ORDERED: VANCOMYCIN 1 GM 250 ML IVPB SCH (22:00)
[2019-02-21] MEDS: MONTELUKAST 10 MG TAB PO SCH (23:00)
[2019-02-21] MEDS: ATORVASTATIN 40 MG TAB PO SCH (23:00)
[2019-02-22] VITALS (10 sets, daily range): BP systolic 116–151; BP diastolic 63–75; PULSE 58–75; RESP 16–18
[2019-02-22] MEDS: SOD CHLORIDE 0.9% 1,000 ML IV SCH ×2 (00:57→11:51)
[2019-02-22] MEDS: PIPER-TAZO 3.375 GM IV (PMX) 100 ML IVPB SCH ×4 (01:04→17:53)
[2019-02-22] MEDS: morphine 4 MG/ML VIAL IV PRN ×3 (01:09→11:46)
[2019-02-22] MEDS ORDERED: ACCU-CHEK XX SCH (02:00)
[2019-02-22] MEDS: ACCU-CHEK XX SCH (02:51)
[2019-02-22] MEDS: HYDROCODONE/APAP (5/325) TAB PO PRN (03:34)
[2019-02-22] MEDS: LEVOTHYROXINE 137 MCG TAB PO SCH (07:03)
[2019-02-22] MEDS: FAMOTIDINE 20 MG INJ IV SCH (08:05)
[2019-02-22] MEDS: DOCUSATE SODIUM 100 MG CAP PO SCH (08:05)
[2019-02-22] MEDS: FERROUS SULFATE (EC) 325 MG TAB PO SCH (08:05)
[2019-02-22] MEDS: AMLODIPINE 5 MG TAB PO SCH (08:06)
[2019-02-22] MEDS: DAKINS 0.0125%(1/40) 473 ML SOLUTION TP SCH (08:06)
[2019-02-22] MEDS: INSULIN ASPART [NOVOLOG] 3 ML PEN SC SCH ×5 (08:24→22:23)
--- NOTE | 2019-02-22 09:38 | RADRPT ---
Vent Rate: 69 bpm RR Interval: 0 msec NC Interval: 154 msec QRS Duration: 90 msec QT Interval: 448 msec QTC Interval: 480 msec P-R-T [place]: 33 - 22 - 68 degrees Sinus rhythm with occasional premature ventricular complexes Nonspecific T wave abnormality Prolonged QT Abnormal ECG Electronically Signed By: Abdiel Leonardo
--- NOTE | 2019-02-22 14:05 | CONS ---
Assessment/Plan Assessment/Plan Hospital Course (Demo Recall) Preoperative cardiac risk stratification Gas gangrene right foot s/p debridement 02/21/19 CAD with history of PCI, most recently December 2017 Diabetes, uncontrolled Hypertension Dyslipidemia Patient status post debridement of lower extremity/foot. Denies cp,sob. Spoke to family regarding importance of medication compliance. Restart asa, if no contraindication. No BB given low heart rate. Continue statin tx as tolerated Consultation Date/Type/Reason Admit Date/Time February 20, 2019 at 23:53 Initial Consult Date Type of Consult Cardiology Date/Time of Note DATE: 02/22/19 TIME: 14:03 24 HR Interval Summary Free Text/Dictation No chest pain, shortness of breath, palpitations Exam/Review of Systems Vital Signs Vitals Vital Signs Date Temp Pulse Resp B/P (MAP) Pulse Ox O2 O2 Flow FiO2 Time Delivery Rate 02/22/19 70 12:24 02/22/19 Nasal 2.0 07:39 Cannula 02/22/19 98.2 18 141/63 98 07:34 (89) Intake and Output 02/21/19 02/21/19 02/22/19 1515:00 23:00 07:00 IntakeIntake Total 1200 ml 1450 ml OutputOutput Total 5 ml BalanceBalance 1195 ml 1450 ml Exam Constitutional: alert, oriented (No apparent distress, family bedside) Head: normocephalic Respiratory: clear to auscultation, normal air movement Cardiovascular: regular rate and rhythm (S1-S2 heard) Gastrointestinal: soft, non-tender, bowel sounds Extremities: other (Bandage lower extremity) Labs Result Diagram: 02/22/19 0535 02/22/19 0535 Results 24hrs Laboratory Tests Test 02/21/19 14:21 02/21/19 17:09 02/21/19 22:55 02/22/19 05:35 Bedside Glucose 108 99 82 White Blood Count 9.1 Red Blood Count 3.63 L Hemoglobin 10.4 L Hematocrit 34.2 L Mean Corpuscular 94.2 Volume Mean Corpuscular 28.7 L Hemoglobin Mean Corpuscular 30.4 L Hemoglobin Concent Red Cell 13.6 Distribution Width Platelet Count 290 Mean Platelet Volume 10.0 Immature 1.300 H Granulocytes % Neutrophils % 70.6 Lymphocytes % 17.0 Monocytes % 8.3 Eosinophils % 2.3 Basophils % 0.5 Nucleated Red Blood 0.0 Cells % Immature 0.120 H Granulocytes # Neutrophils # 6.4 Lymphocytes # 1.6 Monocytes # 0.8 Eosinophils # 0.2 Basophils # 0.1 Nucleated Red Blood 0.0 Cells # Sodium Level 139 Potassium Level 4.5 Chloride Level 114 H Carbon Dioxide Level 21 Anion Gap 4 L Blood Urea Nitrogen 18 # Creatinine 0.91 Est Glomerular Filtrat Rate mL/min Glucose Level 189 Calcium Level 7.6 L Total Bilirubin 0.2 Direct Bilirubin 0.00 Indirect Bilirubin 0.2 Aspartate Amino 19 Transf (AST/SGOT) Alanine 22 Aminotransferase (AL T/SGPT) Alkaline Phosphatase 120 Total Protein 5.2 L Albumin 2.4 L Globulin 2.80 Albumin/Globulin 0.85 Ratio Test 02/22/19 08:04 02/22/19 11:50 Bedside Glucose 180 258 H Medications Medications Current Medications Sodium Chloride 1,000 ml @ 75 mls/hr [id number] IV Last administered on 02/22/19at 11:51; Admin Dose 75 MLS/HR; Start 02/21/19 at 01:19 Ondansetron HCl (Zofran Inj) 4 mg Q6H PRN IV NAUSEA AND/OR VOMITING Last administered on 02/21/19at 06:47; Admin Dose 4 MG; Start 02/21/19 at 01:30 Acetaminophen (Tylenol Liquid) 650 mg Q6H PRN PO PAIN LEVEL 1-3 OR FEVER; Start 02/21/19 at 01:30 Acetaminophen/ Hydrocodone Bitart ([place] (5/325)) 1 tab Q6H PRN PO PAIN LEVEL 4-6 Last administered on 02/22/19at 03:34; Admin Dose 1 TAB; Start 02/21/19 at 01:30 Miscellaneous Information (* Miscellaneous Pharmacy Order) Treatment of Hypoglycemia: 1.BG 51... Per protocol XX ; Start 02/21/19 at 01:30 Famotidine (Pepcid Iv) 20 mg DAILY IV Last administered on 02/22/19at 08:05; Admin Dose 20 MG; Start 02/21/19 at 09:00 Vancomycin HCl (Vanco Iv Per Pharmacy) VANCOMYCIN PER PHARMACY PER PROTOCOL XX ; Start 02/21/19 at 01:30 Piperacillin Sod/ Tazobactam Sod 100 ml @ 200 mls/hr Q6 IVPB Last administered on 02/22/19 11:46; Admin Dose 200 MLS/HR; Start 02/21/19 at 06:00 Morphine Sulfate (morphine) 4 mg Q4H PRN IV SEVERE PAIN LEVEL 7-10 Last administered on 02/22/19 11:46; Admin Dose 4 MG; Start 02/21/19 at 05:30 Atorvastatin Calcium (Lipitor) 40 mg QHS PO Last administered on 02/21/19 23:00; Admin Dose 40 MG; Start 02/21/19 at 21:00 Carvedilol (Coreg) 3.125 mg BID PO Last administered on 02/22/19 08:05; Admin Dose 3.125 MG; Start 02/21/19 at 09:00 Docusate Sodium (Colace) 100 mg DAILY PO Last administered on 02/22/19 08:05; Admin Dose 100 MG; Start 02/21/19 at 09:00 Ferrous Sulfate (Ferrous Sulfate (Ec)) 325 mg QAM PO Last administered on 02/22/19 08:05; Admin Dose 325 MG; Start 02/21/19 at 09:00 Levothyroxine Sodium (Synthroid) 137 mcg BEFORE BREAKFAST PO Last administered on 02/22/19 07:03; Admin Dose 137 MCG; Start 02/21/19 at 07:00 Montelukast Sodium (Singulair) 10 mg QHS PO Last administered on 02/21/19 23:00; Admin Dose 10 MG; Start 02/21/19 at 21:00 Miscellaneous Information 1 ea NOTE XX ; Start 02/21/19 at 06:00 Glucose (Glutose) 15 gm Q15M PRN PO DECREASED GLUCOSE; Start 02/21/19 at 06:00 Glucose (Glutose) 22.5 gm Q15M PRN PO DECREASED GLUCOSE; Start 02/21/19 at 06:00 Dextrose (D50w Syringe) 25 ml Q15M PRN IV DECREASED GLUCOSE; Start 02/21/19 at 06:00 Dextrose (D50w Syringe) 50 ml Q15M PRN IV DECREASED GLUCOSE; Start 02/21/19 at 06:00 Glucagon (Glucagen) 1 mg Q15M PRN IM DECREASED GLUCOSE; Start 02/21/19 at 06:00 Glucose (Glutose) 15 gm Q15M PRN BUCCAL DECREASED GLUCOSE; Start 02/21/19 at 06:00 Insulin Aspart (Novolog Insulin Pen) 4 unit WITH BREAKFAST SC Last administered on 02/22/19 08:24; Admin Dose 4 UNIT; Start 02/21/19 at 08:00 Amlodipine Besylate (Norvasc) 5 mg DAILY PO Last administered on 02/22/19 08:06; Admin Dose 5 MG; Start 02/22/19 at 09:00 Sodium Hypochlorite (Dakins Diluted ()) 1 applic DAILY TP Last administered on 02/22/19 08:06; Admin Dose 1 APPLIC; Start 02/22/19 at 09:00 Diagnostic Test (Pha) (Accu-Chek) 1 ea 02 XX Last administered on 02/22/19 02:51; Admin Dose 1 EA; Start 02/22/19 at 02:00 Insulin Aspart (Novolog Insulin Pen) NOVOLOG *MILD* ALGORITHM WITH MEALS BEDTIME SC Last administered on 02/22/19 12:09; Admin Dose 3 UNIT; Start 02/22/19 at 08:00 Vancomycin HCl 1.5 gm/Sodium Chloride 250 ml @ 83.333 mls/ hr Q24H IVPB ; Start 02/22/19 at 23:00 Jeremy Alarcon DO February 22, 2019 14:05
[2019-02-22] MEDS: ASPIRIN 81 MG TAB PO SCH (14:55)
--- NOTE | 2019-02-22 15:55 | PN ---
Date/Time of Note Date/Time of Note DATE: 02/22/19 TIME: 15:43 Assessment/Plan VTE Prophylaxis Risk score (from Ns)>0 risk: 6 SCD applied (from Ns): Yes Pharmacological prophylaxis: NA/contraindicated Pharm contraindication: surgical contra Lines/Catheters IV [facility] Peripheral IV Assessment/Plan Assessment/Plan 1. Right great toe gas gangrene s/p I&D 02/21 - Appreciate podiatry consultation. further recommendations based on clinical course - intraoperative cultures pending. Continue broad spectrum antibiotics - Arterial imaging studies noted. Will consult Vascular surgery 2. Poorly controlled diabetes mellitus - A1c noted - Will continue home Lantus and adjust as needed - DM education consultation placed 3. h/o CAD s/p PCI - continue home medications - Cardiology consultation appreciated. Will need to resume aspirin when able 4. HTN - continue home medications with holding parameters 5. hypothyroidism - TSH elevated and will check T3 and T4 levels. may be elevated in setting of sepsis - will adjust levothyroxine if needed 6. Hyperlipidemia - continue statin 7. Disposition - Vascular surgery consult for evaluation of peripheral arterial disease - continue current wound care Result Diagram: 02/22/19 0535 02/22/19 0535 Results 24hrs Laboratory Tests Test 02/21/19 17:09 02/21/19 22:55 02/22/19 05:35 02/22/19 08:04 Bedside Glucose 99 82 180 White Blood Count 9.1 Red Blood Count 3.63 L Hemoglobin 10.4 L Hematocrit 34.2 L Mean Corpuscular 94.2 Volume Mean Corpuscular 28.7 L Hemoglobin Mean Corpuscular 30.4 L Hemoglobin Concent Red Cell 13.6 Distribution Width Platelet Count 290 Mean Platelet Volume 10.0 Immature 1.300 H Granulocytes % Neutrophils % 70.6 Lymphocytes % 17.0 Monocytes % 8.3 Eosinophils % 2.3 Basophils % 0.5 Nucleated Red Blood 0.0 Cells % Immature 0.120 H Granulocytes # Neutrophils # 6.4 Lymphocytes # 1.6 Monocytes # 0.8 Eosinophils # 0.2 Basophils # 0.1 Nucleated Red Blood 0.0 Cells # Sodium Level 139 Potassium Level 4.5 Chloride Level 114 H Carbon Dioxide Level 21 Anion Gap 4 L Blood Urea Nitrogen 18 # Creatinine 0.91 Est Glomerular Filtrat Rate mL/min Glucose Level 189 Calcium Level 7.6 L Total Bilirubin 0.2 Direct Bilirubin 0.00 Indirect Bilirubin 0.2 Aspartate Amino 19 Transf (AST/SGOT) Alanine 22 Aminotransferase (AL T/SGPT) Alkaline Phosphatase 120 Total Protein 5.2 L Albumin 2.4 L Globulin 2.80 Albumin/Globulin 0.85 Ratio Test 02/22/19 11:50 Bedside Glucose 258 H Subjective 24 Hr Interval Summary Free Text/Dictation Patient states shes doing well and pain controlled with Morphine. Discussed uncontrolled glucose and need for improvement. No acute overnight events. Exam/Review of Systems Exam Vitals Vital Signs Date Temp Pulse Resp B/P (MAP) Pulse Ox O2 O2 Flow FiO2 Time Delivery Rate 02/22/19 97.9 63 16 135/72 97 15:20 (93) 02/22/19 Nasal 2.0 07:39 Cannula Intake and Output 02/21/19 02/21/19 02/22/19 1515:00 23:00 07:00 IntakeIntake Total 1200 ml 1450 ml OutputOutput Total 5 ml BalanceBalance 1195 ml 1450 ml Exam General: no acute distress. answering questions appropriately Neck: Supple Chest: Nontender Lungs: Clear to auscultation bilaterally no crackles rales or wheezing Heart: Normal S1-S2, Regular rhythm and rate. Abdomen: Soft , nontender, nondistended , bowel sounds are present. No guarding no rebound tenderness Extremities: Normal to inspection, no edema no cyanosis Skin: right foot dressing in place Results Results 24hrs Laboratory Tests Test 02/21/19 17:09 02/21/19 22:55 02/22/19 05:35 02/22/19 08:04 Bedside Glucose 99 82 180 White Blood Count 9.1 Red Blood Count 3.63 L Hemoglobin 10.4 L Hematocrit 34.2 L Mean Corpuscular 94.2 Volume Mean Corpuscular 28.7 L Hemoglobin Mean Corpuscular 30.4 L Hemoglobin Concent Red Cell 13.6 Distribution Width Platelet Count 290 Mean Platelet Volume 10.0 Immature 1.300 H Granulocytes % Neutrophils % 70.6 Lymphocytes % 17.0 Monocytes % 8.3 Eosinophils % 2.3 Basophils % 0.5 Nucleated Red Blood 0.0 Cells % Immature 0.120 H Granulocytes # Neutrophils # 6.4 Lymphocytes # 1.6 Monocytes # 0.8 Eosinophils # 0.2 Basophils # 0.1 Nucleated Red Blood 0.0 Cells # Sodium Level 139 Potassium Level 4.5 Chloride Level 114 H Carbon Dioxide Level 21 Anion Gap 4 L Blood Urea Nitrogen 18 # Creatinine 0.91 Est Glomerular Filtrat Rate mL/min Glucose Level 189 Calcium Level 7.6 L Total Bilirubin 0.2 Direct Bilirubin 0.00 Indirect Bilirubin 0.2 Aspartate Amino 19 Transf (AST/SGOT) Alanine 22 Aminotransferase (AL T/SGPT) Alkaline Phosphatase 120 Total Protein 5.2 L Albumin 2.4 L Globulin 2.80 Albumin/Globulin 0.85 Ratio Test 02/22/19 11:50 Bedside Glucose 258 H Medications Medication Current Medications Sodium Chloride 1,000 ml @ 75 mls/hr [id number] IV Last administered on 02/22/19 11:51; Admin Dose 75 MLS/HR; Start 02/21/19 at 01:19 Ondansetron HCl (Zofran Inj) 4 mg Q6H PRN IV NAUSEA AND/OR VOMITING Last administered on 02/21/19 06:47; Admin Dose 4 MG; Start 02/21/19 at 01:30 Acetaminophen (Tylenol Liquid) 650 mg Q6H PRN PO PAIN LEVEL 1-3 OR FEVER; Start 02/21/19 at 01:30 Acetaminophen/ Hydrocodone Bitart ([place] (5/325)) 1 tab Q6H PRN PO PAIN LEVEL 4-6 Last administered on 02/22/19 03:34; Admin Dose 1 TAB; Start 02/21/19 at 01:30 Miscellaneous Information (* Miscellaneous Pharmacy Order) Treatment of Hypoglycemia: 1.BG 51... Per protocol XX ; Start 02/21/19 at 01:30 Famotidine (Pepcid Iv) 20 mg DAILY IV Last administered on 02/22/19 08:05; Admin Dose 20 MG; Start 02/21/19 at 09:00 Vancomycin HCl (Vanco Iv Per Pharmacy) VANCOMYCIN PER PHARMACY PER PROTOCOL XX ; Start 02/21/19 at 01:30 Piperacillin Sod/ Tazobactam Sod 100 ml @ 200 mls/hr Q6 IVPB Last administered on 02/22/19 11:46; Admin Dose 200 MLS/HR; Start 02/21/19 at 06:00 Morphine Sulfate (morphine) 4 mg Q4H PRN IV SEVERE PAIN LEVEL 7-10 Last administered on 5/30/19at 11:46; Admin Dose 4 MG; Start 02/21/19 at 05:30 Atorvastatin Calcium (Lipitor) 40 mg QHS PO Last administered on 02/21/19 23:00; Admin Dose 40 MG; Start 02/21/19 at 21:00 Carvedilol (Coreg) 3.125 mg BID PO Last administered on 02/22/19 08:05; Admin Dose 3.125 MG; Start 02/21/19 at 09:00 Docusate Sodium (Colace) 100 mg DAILY PO Last administered on 02/22/19 08:05; Admin Dose 100 MG; Start 02/21/19 at 09:00 Ferrous Sulfate (Ferrous Sulfate (Ec)) 325 mg QAM PO Last administered on 02/22/19 08:05; Admin Dose 325 MG; Start 02/21/19 at 09:00 Levothyroxine Sodium (Synthroid) 137 mcg BEFORE BREAKFAST PO Last administered on 02/22/19 07:03; Admin Dose 137 MCG; Start 02/21/19 at 07:00 Montelukast Sodium (Singulair) 10 mg QHS PO Last administered on 02/21/19 23:00; Admin Dose 10 MG; Start 02/21/19 at 21:00 Miscellaneous Information 1 ea NOTE XX ; Start 02/21/19 at 06:00 Glucose (Glutose) 15 gm Q15M PRN PO DECREASED GLUCOSE; Start 02/21/19 at 06:00 Glucose (Glutose) 22.5 gm Q15M PRN PO DECREASED GLUCOSE; Start 02/21/19 at 06:00 Dextrose (D50w Syringe) 25 ml Q15M PRN IV DECREASED GLUCOSE; Start 02/21/19 at 06:00 Dextrose (D50w Syringe) 50 ml Q15M PRN IV DECREASED GLUCOSE; Start 02/21/19 at 06:00 Glucagon (Glucagen) 1 mg Q15M PRN IM DECREASED GLUCOSE; Start 02/21/19 at 06:00 Glucose (Glutose) 15 gm Q15M PRN BUCCAL DECREASED GLUCOSE; Start 02/21/19 at 06:00 Insulin Aspart (Novolog Insulin Pen) 4 unit WITH BREAKFAST SC Last administered on 02/22/19 08:24; Admin Dose 4 UNIT; Start 02/21/19 at 08:00 Amlodipine Besylate (Norvasc) 5 mg DAILY PO Last administered on 02/22/19 08:06; Admin Dose 5 MG; Start 02/22/19 at 09:00 Sodium Hypochlorite (Dakins Diluted ()) 1 applic DAILY TP Last administered on 02/22/19 08:06; Admin Dose 1 APPLIC; Start 02/22/19 at 09:00 Diagnostic Test (Pha) (Accu-Chek) 1 ea 02 XX Last administered on 02/22/19 02:51; Admin Dose 1 EA; Start 02/22/19 at 02:00 Insulin Aspart (Novolog Insulin Pen) NOVOLOG *MILD* ALGORITHM WITH MEALS BEDTIME SC Last administered on 02/22/19 12:09; Admin Dose 3 UNIT; Start 02/22/19 at 08:00 Vancomycin HCl 1.5 gm/Sodium Chloride 250 ml @ 83.333 mls/ hr Q24H IVPB ; Start 02/22/19 at 23:00 Aspirin (Aspirin) 81 mg DAILY PO Last administered on 02/22/19 14:55; Admin Dose 81 MG; Start 02/22/19 at 14:30 XUAN PROCTOR MD February 22, 2019 15:55
--- NOTE | 2019-02-22 19:44 | CONS ---
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 Appreciate vascular recommendations. Concern for ischemia to the right hallux and reviewed arterial studies. Continue with abx per recommendations. Intra-op cultures showing staph and enterococcus. Tight glycemic control. Patient would benefit from diabetes education. Patient also would need a PCP as she has not seen one for a long time and will need further diabetes management. Consultation Date/Type/Reason Admit Date/Time February 20, 2019 at 23:53 Initial Consult Date Date/Time of Note DATE: 02/22/19 TIME: 19:44 24 HR Interval Summary Free Text/Dictation No acute events overnight Exam/Review of Systems Exam Vitals Vital Signs Date Temp Pulse Resp B/P (MAP) Pulse Ox O2 O2 Flow FiO2 Time Delivery Rate 02/22/19 63 16:19 02/22/19 97.9 16 135/72 97 15:20 (93) 02/22/19 Nasal 2.0 07:39 Cannula Intake and Output 02/21/19 02/21/19 02/22/19 1515:00 23:00 07:00 IntakeIntake Total 1200 ml 1450 ml OutputOutput Total 5 ml BalanceBalance 1195 ml 1450 ml Exam wound measurement was 5 x 3 x 0.5cm. There was mild sanguinous bleeding appreciated to the surgical site. Wound base appearing fibrotic which probes to bone. There is ischemic signs to the wound and hallux site. Absent protective sensations Pain on palpation to the hallux. Non invasive arterial studies IMPRESSION: Diffuse monophasic waveforms in the right lower extremity consistent with a significant iliac artery inflow stenosis. Low velocity flow in the right dorsalis pedis artery consistent with a significant stenosis. Normal right DENISE. Change from biphasic to monophasic waveforms in the left distal superficial femoral artery consistent with a significant stenosis. Severely reduced left DENISE. Consider CT angiogram aorta with bilateral lower extremity runoff to further evaluate. Results Result Diagram: 02/22/19 0535 02/22/19 0535 Results 24hrs Laboratory Tests Test 02/21/19 22:55 02/22/19 05:35 02/22/19 08:04 02/22/19 11:50 Bedside Glucose 82 180 258 H White Blood Count 9.1 Red Blood Count 3.63 L Hemoglobin 10.4 L Hematocrit 34.2 L Mean Corpuscular 94.2 Volume Mean Corpuscular 28.7 L Hemoglobin Mean Corpuscular 30.4 L Hemoglobin Concent Red Cell 13.6 Distribution Width Platelet Count 290 Mean Platelet Volume 10.0 Immature 1.300 H Granulocytes % Neutrophils % 70.6 Lymphocytes % 17.0 Monocytes % 8.3 Eosinophils % 2.3 Basophils % 0.5 Nucleated Red Blood 0.0 Cells % Immature 0.120 H Granulocytes # Neutrophils # 6.4 Lymphocytes # 1.6 Monocytes # 0.8 Eosinophils # 0.2 Basophils # 0.1 Nucleated Red Blood 0.0 Cells # Sodium Level 139 Potassium Level 4.5 Chloride Level 114 H Carbon Dioxide Level 21 Anion Gap 4 L Blood Urea Nitrogen 18 # Creatinine 0.91 Est Glomerular Filtrat Rate mL/min Glucose Level 189 Calcium Level 7.6 L Total Bilirubin 0.2 Direct Bilirubin 0.00 Indirect Bilirubin 0.2 Aspartate Amino 19 Transf (AST/SGOT) Alanine 22 Aminotransferase (AL T/SGPT) Alkaline Phosphatase 120 Total Protein 5.2 L Albumin 2.4 L Globulin 2.80 Albumin/Globulin 0.85 Ratio Test 02/22/19 17:50 Bedside Glucose 195 Medications Medication Current Medications Sodium Chloride 1,000 ml @ 75 mls/hr [id number] IV Last administered on 02/22/19at 11:51; Admin Dose 75 MLS/HR; Start 02/21/19 at 01:19 Ondansetron HCl (Zofran Inj) 4 mg Q6H PRN IV NAUSEA AND/OR VOMITING Last administered on 02/21/19at 06:47; Admin Dose 4 MG; Start 02/21/19 at 01:30 Acetaminophen (Tylenol Liquid) 650 mg Q6H PRN PO PAIN LEVEL 1-3 OR FEVER; Start 02/21/19 at 01:30 Acetaminophen/ Hydrocodone Bitart ([place] (5/325)) 1 tab Q6H PRN PO PAIN LEVEL 4-6 Last administered on 02/22/19at 03:34; Admin Dose 1 TAB; Start 02/21/19 at 01:30 Miscellaneous Information (* Miscellaneous Pharmacy Order) Treatment of Hypoglycemia: 1.BG 51... Per protocol XX ; Start 02/21/19 at 01:30 Famotidine (Pepcid Iv) 20 mg DAILY IV Last administered on 02/22/19 08:05; Admin Dose 20 MG; Start 02/21/19 at 09:00 Vancomycin HCl (Vanco Iv Per Pharmacy) VANCOMYCIN PER PHARMACY PER PROTOCOL XX ; Start 02/21/19 at 01:30 Piperacillin Sod/ Tazobactam Sod 100 ml @ 200 mls/hr Q6 IVPB Last administered on 02/22/19 17:53; Admin Dose 200 MLS/HR; Start 02/21/19 at 06:00 Morphine Sulfate (morphine) 4 mg Q4H PRN IV SEVERE PAIN LEVEL 7-10 Last administered on 02/22/19 11:46; Admin Dose 4 MG; Start 02/21/19 at 05:30 Atorvastatin Calcium (Lipitor) 40 mg QHS PO Last administered on 02/21/19 23:00; Admin Dose 40 MG; Start 02/21/19 at 21:00 Carvedilol (Coreg) 3.125 mg BID PO Last administered on 02/22/19 08:05; Admin Dose 3.125 MG; Start 02/21/19 at 09:00 Docusate Sodium (Colace) 100 mg DAILY PO Last administered on 02/22/19 08:05; Admin Dose 100 MG; Start 02/21/19 at 09:00 Ferrous Sulfate (Ferrous Sulfate (Ec)) 325 mg QAM PO Last administered on 02/22/19 08:05; Admin Dose 325 MG; Start 02/21/19 at 09:00 Levothyroxine Sodium (Synthroid) 137 mcg BEFORE BREAKFAST PO Last administered on 02/22/19at 07:03; Admin Dose 137 MCG; Start 02/21/19 at 07:00 Montelukast Sodium (Singulair) 10 mg QHS PO Last administered on 02/21/19 23:00; Admin Dose 10 MG; Start 02/21/19 at 21:00 Miscellaneous Information 1 ea NOTE XX ; Start 02/21/19 at 06:00 Glucose (Glutose) 15 gm Q15M PRN PO DECREASED GLUCOSE; Start 02/21/19 at 06:00 Glucose (Glutose) 22.5 gm Q15M PRN PO DECREASED GLUCOSE; Start 02/21/19 at 06:00 Dextrose (D50w Syringe) 25 ml Q15M PRN IV DECREASED GLUCOSE; Start 02/21/19 at 06:00 Dextrose (D50w Syringe) 50 ml Q15M PRN IV DECREASED GLUCOSE; Start 02/21/19 at 06:00 Glucagon (Glucagen) 1 mg Q15M PRN IM DECREASED GLUCOSE; Start 02/21/19 at 06:00 Glucose (Glutose) 15 gm Q15M PRN BUCCAL DECREASED GLUCOSE; Start 02/21/19 at 06:00 Insulin Aspart (Novolog Insulin Pen) 4 unit WITH BREAKFAST SC Last administered on 02/22/19 08:24; Admin Dose 4 UNIT; Start 02/21/19 at 08:00 Amlodipine Besylate (Norvasc) 5 mg DAILY PO Last administered on 02/22/19 08:06; Admin Dose 5 MG; Start 02/22/19 at 09:00 Sodium Hypochlorite (Dakins Diluted (40)) 1 applic DAILY TP Last administered on 02/22/19 08:06; Admin Dose 1 APPLIC; Start 02/22/19 at 09:00 Diagnostic Test (Pha) (Accu-Chek) 1 ea 02 XX Last administered on 02/22/19 02:51; Admin Dose 1 EA; Start 02/22/19 at 02:00 Insulin Aspart (Novolog Insulin Pen) NOVOLOG *MILD* ALGORITHM WITH MEALS BEDTIME SC Last administered on 02/22/19 18:00; Admin Dose 2 UNIT; Start 02/22/19 at 08:00 Vancomycin HCl 1.5 gm/Sodium Chloride 250 ml @ 83.333 mls/ hr Q24H IVPB ; Start 02/22/19 at 23:00 Aspirin (Aspirin) 81 mg DAILY PO Last administered on 02/22/19at 14:55; Admin Dose 81 MG; Start 02/22/19 at 14:30 NASRA ART DPTomás February 22, 2019 19:44
--- NOTE | 2019-02-22 22:16 | CONS ---
DATE OF ADMISSION: 02/20/2019 DATE OF CONSULTATION: 02/22/2019 REFERRING PHYSICIAN: Dr. Jaimie Ruiz and Dr. Erin Haywood. REASON FOR CONSULTATION: Right foot gangrene. HISTORY OF PRESENT ILLNESS: This is a 74-year-old diabetic hypertensive woman. She has a history of coronary artery disease. She was admitted yesterday with gangrene of the right first toe. She went to the OR today for debridement with Dr. Art and Dr. Haywood. She had an arterial duplex done yesterday that showed essentially monophasic waveforms throughout the right lower extremity and pret ty diffuse tibial disease. She has never had any lower extremity arterial interventions in the past. She has had some coronary stents placed. She had a venous duplex on admission also that was normal , showed no DVT. PAST MEDICAL HISTORY: Significant for diabetes, hypertension, coronary artery disease. She has had a PCI in 2018. She has gangrene of the right foot. She has hypercholesterolemia. MEDICATIONS: Consist of: 1. Vancomycin. 2. Aspirin. 3. Norvasc. 4. Dakins. 5. Insulin. 6. Zofran. 7. Lipitor. 8. Singulair. 9. Pepcid. 10. Coreg. 11. Zosyn. ALLERGIES: NO KNOWN DRUG ALLERGIES. SOCIAL HISTORY: She is a nonsmoker. She does not drink or use any illicit drugs. PAST SURGICAL HISTORY: Significant for a small bowel resection several years ago. She had int estinal obstruction. She also had percutaneous coronary intervention. She has never had any heart s urgery or any leg procedures. REVIEW OF SYSTEMS: She is comfortable. She has no chest pain or shortness of breath, no nausea, vom iting, diarrhea. No fever, no chills, no recent weight gain or weight loss. She never had any probl ems with the feet before. She does have peripheral neuropathy. She has no kidney problems. She has had diabetes for many years. PHYSICAL EXAMINATION GENERAL: She is an elderly woman. Her daughter is with her, speaks Polish fluently. She helped gave me a lot of the history. VITAL SIGNS: She has been afebrile. Her blood pressure is 135/72, heart rate is 63, respiratory rat e 16. She is 97% sat on room air. NECK: She has 2+ radial, brachial, and carotid pulses bilaterally. LUNGS: Clear. HEART: Regular rate and rhythm. ABDOMEN: Soft, obese, nontender, nondistended. EXTREMITIES: She has 2+ femoral and popliteal pulses on the right, 2+ femoral on the left, no poplit eal or DP or PT pulse on the left. On the right, the popliteal pulses 2+, but there is no pedal puls e palpable. The right foot is wrapped up. There is some Betadine over the first toe debridement sit e. I did not undress it. I saw a picture before the debridement that showed essentially gangrene wi th some gas gangrene of the right first toe, almost down to the base. IMPRESSION: Right foot gangrene, status post debridement. She has arterial duplex suggesting signif icant arterial insufficiency. I have scheduled her for an arteriogram of the right lower extremity w ith possible intervention tomorrow. She has normal kidney function. Coags are normal, platelet coun t is normal. to proceed. I discussed that with her and her daughter. They are agreeable. Sh e is now n.p.o. We will proceed tomorrow morning. Dictated By: ALVIN VENTURA/MARIANNA Conf#: [id number] DID#: [id number] CC: IGOR SCHWAB MD; ERIN HAYWOOD DPM; JAIMIE RUIZ MD; NASRA ART DPM; TALON MARR DO;*End*
[2019-02-22] MEDS: ATORVASTATIN 40 MG TAB PO SCH (22:24)
[2019-02-22] MEDS: MONTELUKAST 10 MG TAB PO SCH (22:24)
[2019-02-23] VITALS (9 sets, daily range): BP systolic 105–128; BP diastolic 49–68; PULSE 53–66; RESP 10–23
[2019-02-23] MEDS: morphine 4 MG/ML VIAL IV PRN ×3 (00:08→16:42)
[2019-02-23] MEDS: VANCOMYCIN HCL 1.5 GM in SOD CHLORIDE 0.9% 250 ML IVPB SCH (00:10)
[2019-02-23] MEDS: ACCU-CHEK XX SCH (02:00)
[2019-02-23] MEDS: SOD CHLORIDE 0.9% 1,000 ML IV SCH ×2 (03:37→16:57)
[2019-02-23] MEDS ORDERED: INSULIN ASPART [NOVOLOG] 3 ML PEN SC SCH (05:00)
[2019-02-23] MEDS: PIPER-TAZO 3.375 GM IV (PMX) 100 ML IVPB SCH ×5 (05:47→23:13)
[2019-02-23] MEDS: Insulin NOVOLOG SS MILD Algorithm (NPO/TPN/ENTERAL FEEDS) SC SCH ×5 (05:49→20:26)
[2019-02-23] MEDS: LEVOTHYROXINE 137 MCG TAB PO SCH (06:00)
[2019-02-23] MEDS: INSULIN ASPART [NOVOLOG] 3 ML PEN SC SCH (08:00)
[2019-02-23] MEDS: FAMOTIDINE 20 MG INJ IV SCH (08:49)
[2019-02-23] MEDS: AMLODIPINE 5 MG TAB PO SCH (08:50)
[2019-02-23] MEDS: FERROUS SULFATE (EC) 325 MG TAB PO SCH (08:50)
[2019-02-23] MEDS: DOCUSATE SODIUM 100 MG CAP PO SCH (08:50)
[2019-02-23] MEDS: ASPIRIN 81 MG TAB PO SCH (08:51)
[2019-02-23] MEDS: DAKINS 0.0125%(1/40) 473 ML SOLUTION TP SCH ×2 (09:00→18:00)
[2019-02-23] MEDS ORDERED: HEPARIN 1000 UNITS/NS (A-LINE) 1,000 ML ONE (09:31)
[2019-02-23] MEDS ORDERED: LIDOCAINE 1% (MDV) 20 ML INJ ONE (09:32)
[2019-02-23] MEDS ORDERED: IODIXANOL LOCM 100 ML BTL ONE (09:33)
[2019-02-23] MEDS ORDERED: HEPARIN 1000 UNITS/ML 10 ML INJ ONE (10:32)
--- NOTE | 2019-02-23 11:22 | SIPON ---
Date/Time of Note Date/Time of Note DATE: 02/23/19 TIME: 11:20 Operative Report Preoperative Diagnosis R 1st toe gangrene Postoperative Diagnosis same Operation/Procedure Performed aortogram, RLE runoff, R popliteal angioplasty - ~50% pop stenosis, 0v runoff, reconstituted DP in foot, PT and peroneal are occluded Surgeon see signature line assistant producer none Anesthesia: moderate sedation Estimated blood loss: minimal Transfusion Required none Specimen none Grafts/Implants none Complications none ALVIN ENG MD February 23, 2019 11:22
[2019-02-23] MEDS ORDERED: SOD CHLORIDE 0.9% 1,000 ML IV SCH (12:00)
--- NOTE | 2019-02-23 15:39 | OPR ---
DATE OF OPERATION: 02/23/2019 PREOPERATIVE DIAGNOSIS: Right 1st toe gangrene. POSTOPERATIVE DIAGNOSIS: Right 1st toe gangrene. PROCEDURE PERFORMED: Abdominal aortogram with right lower extremity runoff and right popliteal arter y angioplasty. SURGEON: Alvin Rich MD ANESTHESIA: Local with sedation. ESTIMATED BLOOD LOSS: Minimal. COMPLICATIONS: There are no intraprocedural complications. INDICATIONS: This is a 74-year-old diabetic, hypertensive woman with peripheral arterial disease. S he presented with gangrene of the right 1st toe. She had debridement. Most of the skin has been rem bobby and part of it is still a little necrotic. She was brought her in today for an angiogram and po ssible intervention. PROCEDURE IN DETAILS: The patient was brought to the hoisting laborer, placed on the table in supine positio n. Left groin was prepped and draped in the usual sterile fashion. Using ultrasound to identify the left common femoral artery, I infiltrated over the artery using about 10 mL of 1% Xylocaine. I then used a micropuncture needle to enter the artery under ultrasound guidance. An 0.018 wire was insert ed through the needle into the vein then 6-Congolese sheath was advanced over the wire and into the bryce ry. I then passed an 0.035 Bentson wire up to the abdominal aorta. I then advanced a rim catheter o ancelmo the wire and then into the aorta. I did an aortogram. I advanced the catheter up and over the b ifurcation using a Bentson wire for support and did runoff down the right lower extremity. FINDINGS OF ANGIOGRAPHY: The infrarenal aorta is widely patent. Both common external and internal i liac arteries are widely patent. Both common, superficial and profunda femoral arteries were patent. Going down the right leg, the SFA is calcified but patent all the way down. The popliteal was mcknight nt above and below the knee. Right at the knee, there is about 50% to 60% stenosis. Below the knee, all 3 trifurcation vessels are occluded. Anterior tibial was occluded at its origin. It is extreme ly calcified and there is sort of [place] of [place] appearance of the vessel all the way down with areas of occlusion and its short segment of reconstitution. The peroneal artery is patent proximally and then it occludes in the upper calf. Posterior tibial artery is completely occluded. There are multi ple collaterals coming from below knee pop going down into the foot and there is reconstitution of a pretty good dorsalis pedis artery just at the ankle. There is no posterior tibial or plantar artery noted. I decided to try and open the anterior tibial. I gave the patient 5000 units of heparin intr avenously. I advanced 0.035 Advantage wire down into the popliteal artery then exchanged for a 6-Troy nch 70 cm sheath which I left in the right mid popliteal. I then used an 0.035 Quick-Cross and an 0. 035 glide to engage the anterior tibial artery. I was able to get the Quick-Cross catheter into the proximal anterior tibial. I could not get the Glidewire to pass the more proximal portion of the art crow where the occlusion was very calcified. The wire went extraluminal. I then tried using an 0.014 Command wire to see if I can get find a smaller passage through and I did the same result. I could not get through the upper portion of the anterior tibial. I then tried to recanalize the peroneal so I brought the catheter back and advanced the Command wire down into the peroneal. I used an 0.014 Q uick-Cross for support. I could not get it to pass the mid calf. Again, I get some extraluminal wir e passage and extravasation, so I decided just to treat the popliteal. I think she will benefit from bypass if we treat the popliteal stenosis I can at least do a below knee pop to DP bypass, so I then treated the popliteal stenosis with 5 mm x 10 cm balloon to 12 atmospheres. We did 2-minute inflati on and there was a good result with no residual stenosis. There is a slight little dissection. Flap is not flow limiting. It looked fairly minor. I was happy with the results. At this point, I then confirmed that the puncture of the left common femoral by pulling the sheath back into the external iliac and doing a completion view. Once that was confirmed, I closed the left groin puncture site wi th a 6-Congolese Angio-Seal device with good hemostasis. The patient tolerated the procedure well witho ut any complication. She will be transferred to the recovery room and back to her room. I am going to get her scheduled for pop to DP bypass at the next available appointment. I will get her vein map ped prior to that. Dictated By: ALVIN VENTURA/MARIANNA Conf#: [id number] [facility]#: [id number] CC: XUAN PROCTOR MD; ERIN HAYWOOD DPM; IGOR SCHWAB MD;*EndCC*
--- NOTE | 2019-02-23 15:43 | PN ---
Date/Time of Note Date/Time of Note DATE: 02/23/19 TIME: 15:42 Assessment/Plan VTE Prophylaxis Risk score (from Ns)>0 risk: 4 SCD applied (from Ns): Yes Pharmacological prophylaxis: NA/contraindicated Pharm contraindication: low risk/ambulating Lines/Catheters IV Catheter Type (from [facility]): Peripheral IV Assessment/Plan Assessment/Plan 1. Right great toe gas gangrene s/p I&D 02/21 - Appreciate podiatry consultation. continue local wound care and IV antibiotics - intraoperative cultures noted. ID consulted for antibiotic recommendations - Arterial imaging studies noted. 2. Poorly controlled diabetes mellitus - A1c noted - Will continue home Lantus and adjust as needed - DM education consultation appreciated 3. h/o CAD s/p PCI - continue home medications - Cardiology consultation appreciated. continue on aspirin 4. HTN - continue home medications with holding parameters 5. hypothyroidism - TSH elevated and will check T3 and T4 levels. may be elevated in setting of sepsis - will adjust levothyroxine if needed 6. Hyperlipidemia - continue statin 7. PAD - Vascular consultation appreciated and plans for fem pop given angiogram findings when able - aspirin on board 8. Disposition - Plans for fem pop when able. ID consulted for antibiotic recommendations Result Diagram: 02/23/19 0433 02/23/19 0433 Results 24hrs Laboratory Tests Test 02/22/19 17:50 02/22/19 22:19 02/23/19 02:10 02/23/19 04:33 Bedside Glucose 195 226 H 185 White Blood 8.7 Count Red Blood Count 3.46 L Hemoglobin 9.9 L Hematocrit 32.5 L Mean Corpuscular 93.9 Volume Mean Corpuscular 28.6 L Hemoglobin Mean Corpuscular 30.5 L Hemoglobin Jory nt Red Cell 13.7 Distribution Width Platelet Count 260 Mean Platelet 9.9 Volume Immature 1.600 H Granulocytes % Neutrophils % 66.9 Lymphocytes % 20.1 Monocytes % 8.9 Eosinophils % 2.2 Basophils % 0.3 Nucleated Red 0.0 Blood Cells % Immature 0.140 H Granulocytes # Neutrophils # 5.8 Lymphocytes # 1.8 Monocytes # 0.8 Eosinophils # 0.2 Basophils # 0.0 Nucleated Red 0.0 Blood Cells # Sodium Level 137 Potassium Level 4.8 Chloride Level 110 Carbon Dioxide 24 Level Anion Gap 3 L Blood Urea 19 Nitrogen Creatinine 1.00 Est Glomerular Filtrat Rate mL/min Glucose Level 202 Calcium Level 7.8 L Total Bilirubin 0.3 Direct Bilirubin 0.00 Indirect 0.3 Bilirubin Aspartate Amino 22 Transf (AST/SGOT ) Alanine 22 Aminotransferase (ALT/SGPT) Alkaline 108 Phosphatase Total Protein 4.9 L Albumin 2.3 L Globulin 2.60 Albumin/Globulin 0.88 Ratio Test 02/23/19 05:42 02/23/19 08:48 02/23/19 10:03 02/23/19 11:46 Bedside Glucose 207 182 135 Lab Scanned REFERENCE LAB Report Test 02/23/19 12:42 02/23/19 14:02 Lab Scanned REFERENCE LAB Report Bedside Glucose 151 Subjective 24 Hr Interval Summary Free Text/Dictation Patient denies any acute issues and lying flat following angiogram. No acute overnight events. Exam/Review of Systems Exam Vitals Vital Signs Date Temp Pulse Resp B/P (MAP) Pulse Ox O2 O2 Flow FiO2 Time Delivery Rate 02/23/19 97.9 59 20 115/58 98 Nasal 2.0 14:00 (77) Cannula Intake and Output 02/22/19 02/22/19 02/23/19 1414:59 22:59 06:59 IntakeIntake Total 1200 ml 900 ml BalanceBalance 1200 ml 900 ml Exam General: no acute distress. answering questions appropriately Lungs: Clear to auscultation bilaterally no crackles rales or wheezing Heart: Normal S1-S2, Regular rhythm and rate. Abdomen: Soft , nontender, nondistended , bowel sounds are present. No guarding no rebound tenderness Extremities: Normal to inspection, no edema no cyanosis Skin: right foot dressing in place Results Results 24hrs Laboratory Tests Test 02/22/19 17:50 02/22/19 22:19 02/23/19 02:10 02/23/19 04:33 Bedside Glucose 195 226 H 185 White Blood 8.7 Count Red Blood Count 3.46 L Hemoglobin 9.9 L Hematocrit 32.5 L Mean Corpuscular 93.9 Volume Mean Corpuscular 28.6 L Hemoglobin Mean Corpuscular 30.5 L Hemoglobin Jory nt Red Cell 13.7 Distribution Width Platelet Count 260 Mean Platelet 9.9 Volume Immature 1.600 H Granulocytes % Neutrophils % 66.9 Lymphocytes % 20.1 Monocytes % 8.9 Eosinophils % 2.2 Basophils % 0.3 Nucleated Red 0.0 Blood Cells % Immature 0.140 H Granulocytes # Neutrophils # 5.8 Lymphocytes # 1.8 Monocytes # 0.8 Eosinophils # 0.2 Basophils # 0.0 Nucleated Red 0.0 Blood Cells # Sodium Level 137 Potassium Level 4.8 Chloride Level 110 Carbon Dioxide 24 Level Anion Gap 3 L Blood Urea 19 Nitrogen Creatinine 1.00 Est Glomerular Filtrat Rate mL/min Glucose Level 202 Calcium Level 7.8 L Total Bilirubin 0.3 Direct Bilirubin 0.00 Indirect 0.3 Bilirubin Aspartate Amino 22 Transf (AST/SGOT ) Alanine 22 Aminotransferase (ALT/SGPT) Alkaline 108 Phosphatase Total Protein 4.9 L Albumin 2.3 L Globulin 2.60 Albumin/Globulin 0.88 Ratio Test 02/23/19 05:42 02/23/19 08:48 02/23/19 10:03 02/23/19 11:46 Bedside Glucose 207 182 135 Lab Scanned REFERENCE LAB Report Test 02/23/19 12:42 02/23/19 14:02 Lab Scanned REFERENCE LAB Report Bedside Glucose 151 Medications Medication Current Medications Sodium Chloride 1,000 ml @ 75 mls/hr [id number] IV Last administered on 02/22/19at 11:51; Admin Dose 75 MLS/HR; Start 02/21/19 at 01:19 Ondansetron HCl (Zofran Inj) 4 mg Q6H PRN IV NAUSEA AND/OR VOMITING Last administered on 02/21/19at 06:47; Admin Dose 4 MG; Start 02/21/19 at 01:30 Acetaminophen (Tylenol Liquid) 650 mg Q6H PRN PO PAIN LEVEL 1-3 OR FEVER; Start 02/21/19 at 01:30 Acetaminophen/ Hydrocodone Bitart ([place] (5/325)) 1 tab Q6H PRN PO PAIN LEVEL 4-6 Last administered on 02/22/19at 03:34; Admin Dose 1 TAB; Start 02/21/19 at 01:30 Miscellaneous Information (* Miscellaneous Pharmacy Order) Treatment of Hypoglycemia: 1.BG 51... Per protocol XX ; Start 02/21/19 at 01:30 Famotidine (Pepcid Iv) 20 mg DAILY IV Last administered on 02/23/19at 08:49; Admin Dose 20 MG; Start 02/21/19 at 09:00 Vancomycin HCl (Vanco Iv Per Pharmacy) VANCOMYCIN PER PHARMACY PER PROTOCOL XX ; Start 02/21/19 at 01:30 Piperacillin Sod/ Tazobactam Sod 100 ml @ 200 mls/hr Q6 IVPB Last administered on 02/23/19at 12:36; Admin Dose 200 MLS/HR; Start 02/21/19 at 06:00 Morphine Sulfate (morphine) 4 mg Q4H PRN IV SEVERE PAIN LEVEL 7-10 Last administered on 02/23/19 05:46; Admin Dose 4 MG; Start 02/21/19 at 05:30 Atorvastatin Calcium (Lipitor) 40 mg QHS PO Last administered on 02/22/19 22:24; Admin Dose 40 MG; Start 02/21/19 at 21:00 Carvedilol (Coreg) 3.125 mg BID PO Last administered on 02/22/19 22:25; Admin Dose 3.125 MG; Start 02/21/19 at 09:00 Docusate Sodium (Colace) 100 mg DAILY PO Last administered on 02/22/19 08:05; Admin Dose 100 MG; Start 02/21/19 at 09:00 Ferrous Sulfate (Ferrous Sulfate (Ec)) 325 mg QAM PO Last administered on 02/22/19 08:05; Admin Dose 325 MG; Start 02/21/19 at 09:00 Levothyroxine Sodium (Synthroid) 137 mcg BEFORE BREAKFAST PO Last administered on 02/23/19 06:00; Admin Dose 137 MCG; Start 02/21/19 at 07:00 Montelukast Sodium (Singulair) 10 mg QHS PO Last administered on 02/22/19 22:24; Admin Dose 10 MG; Start 02/21/19 at 21:00 Miscellaneous Information 1 ea NOTE XX ; Start 02/21/19 at 06:00 Glucose (Glutose) 15 gm Q15M PRN PO DECREASED GLUCOSE; Start 02/21/19 at 06:00 Glucose (Glutose) 22.5 gm Q15M PRN PO DECREASED GLUCOSE; Start 02/21/19 at 06:00 Dextrose (D50w Syringe) 25 ml Q15M PRN IV DECREASED GLUCOSE; Start 02/21/19 at 06:00 Dextrose (D50w Syringe) 50 ml Q15M PRN IV DECREASED GLUCOSE; Start 02/21/19 at 06:00 Glucagon (Glucagen) 1 mg Q15M PRN IM DECREASED GLUCOSE; Start 02/21/19 at 06:00 Glucose (Glutose) 15 gm Q15M PRN BUCCAL DECREASED GLUCOSE; Start 02/21/19 at 06:00 Insulin Aspart (Novolog Insulin Pen) 4 unit WITH BREAKFAST SC Last administered on 02/22/19at 08:24; Admin Dose 4 UNIT; Start 02/21/19 at 08:00 Amlodipine Besylate (Norvasc) 5 mg DAILY PO Last administered on 02/23/19at 08:50; Admin Dose 5 MG; Start 02/22/19 at 09:00 Sodium Hypochlorite (Dakins Diluted ()) 1 applic DAILY TP Last administered on 02/22/19 08:06; Admin Dose 1 APPLIC; Start 02/22/19 at 09:00 Vancomycin HCl 1.5 gm/Sodium Chloride 250 ml @ 83.333 mls/ hr Q24H IVPB Last administered on 02/23/19at 00:10; Admin Dose 83.333 MLS/HR; Start 02/22/19 at 23:00 Aspirin (Aspirin) 81 mg DAILY PO Last administered on 02/22/19at 14:55; Admin Dose 81 MG; Start 02/22/19 at 14:30 Insulin Aspart (Novolog Insulin Pen) (Adult SC Insulin - Mild Algorithm)... Q4 SC Last administered on 02/23/19at 14:08; Admin Dose 1 UNIT; Start 02/23/19 at 05:00 Sodium Chloride 1,000 ml @ 125 mls/hr Q8H IV Last administered on 02/23/19at 12 :40; Admin Dose 125 MLS/HR; Start 02/23/19 at 12:00; Stop 02/23/19 at 18:00 XUAN PROCTOR MD February 23, 2019 15:42
[2019-02-23] MEDS: HYDROCODONE/APAP (5/325) TAB PO PRN (20:22)
[2019-02-23] MEDS: MONTELUKAST 10 MG TAB PO SCH (20:22)
[2019-02-23] MEDS: ATORVASTATIN 40 MG TAB PO SCH (20:22)
[2019-02-23] MEDS: INSULIN GLARGINE [LANTus] (100 UNITS/ML) SYG SC SCH (20:27)
[2019-02-23] MEDS: SENNA TAB PO SCH (23:13)
[2019-02-24] MEDS: VANCOMYCIN HCL 1.5 GM in SOD CHLORIDE 0.9% 250 ML IVPB SCH (00:01)
[2019-02-24] MEDS: ACCUCHECK AT 2AM (Patients on SS coverage) XX SCH (01:41)
[2019-02-24 02:00] VITALS: BP 123/60; PULSE 63; RESP 18
[2019-02-24] MEDS: GUAIFENESIN 20 MG/ML 5ML CUP PO PRN ×5 (04:20→23:32)
[2019-02-24] MEDS: HYDROCODONE/APAP (5/325) TAB PO PRN ×2 (04:21→23:17)
[2019-02-24] MEDS: PIPER-TAZO 3.375 GM IV (PMX) 100 ML IVPB SCH ×5 (06:22→23:16)
[2019-02-24] MEDS: LEVOTHYROXINE 137 MCG TAB PO SCH (06:22)
[2019-02-24 08:00] VITALS: BP 129/60; PULSE 60; RESP 19
[2019-02-24] MEDS: DOCUSATE SODIUM 100 MG CAP PO SCH (08:42)
[2019-02-24] MEDS: AMLODIPINE 5 MG TAB PO SCH (08:42)
[2019-02-24] MEDS: FAMOTIDINE 20 MG INJ IV SCH (08:43)
[2019-02-24] MEDS: SENNA TAB PO SCH ×2 (08:43→20:18)
[2019-02-24] MEDS: FERROUS SULFATE (EC) 325 MG TAB PO SCH (08:43)
[2019-02-24] MEDS: ASPIRIN 81 MG TAB PO SCH (08:43)
[2019-02-24] MEDS: INSULIN ASPART [NOVOLOG] 3 ML PEN SC SCH ×5 (08:44→20:26)
[2019-02-24] MEDS: ACETAMINOPHEN 650MG/20.3ML CUP PO PRN (08:53)
[2019-02-24] MEDS: DAKINS 0.0125%(1/40) 473 ML SOLUTION TP SCH (08:54)
[2019-02-24] MEDS: morphine 4 MG/ML VIAL IV PRN ×2 (09:46→20:17)
--- NOTE | 2019-02-24 09:59 | PN ---
Date/Time of Note Date/Time of Note DATE: 02/24/19 TIME: 09:59 Assessment/Plan VTE Prophylaxis Risk score (from Nsg)>0 risk: 6 SCD applied (from Nsg): Yes Pharmacological prophylaxis: heparin Lines/Catheters IV Catheter Type (from Nrsg): Peripheral IV Assessment/Plan Assessment/Plan 1. Right great toe gas gangrene s/p I&D 02/21 - Appreciate podiatry consultation. continue local wound care and antibiotics - ID consultation appreciated - Arterial imaging studies noted and will need fem/pop 2. Poorly controlled diabetes mellitus - A1c noted - Will continue home Lantus and adjust as needed - DM education consultation appreciated 3. h/o CAD s/p PCI - continue home medications - Cardiology consultation appreciated. continue on aspirin 4. HTN - continue home medications with holding parameters 5. hypothyroidism - TSH noted and will increase levothyroxine dose - will need outpatient repeat thyroid studies in 4-6 weeks 6. Hyperlipidemia - continue statin 7. PAD - Vascular consultation appreciated and plans for fem pop given angiogram findings when able - aspirin on board 8. Disposition - Plans for fempop when OR time available - SW/CM on board given patient current pending insurance. Per daughter, pending medicare Result Diagram: 02/24/19 0457 02/24/19 0457 Results 24hrs Laboratory Tests Test 02/23/19 10:03 02/23/19 11:46 02/23/19 12:42 02/23/19 14:02 Lab Scanned REFERENCE LAB REFERENCE LAB Report Bedside Glucose 135 151 Test 02/23/19 16:49 02/23/19 20:15 02/24/19 01:40 02/24/19 04:57 Bedside Glucose 131 291 H 183 White Blood 9.2 Count Red Blood Count 3.27 L Hemoglobin 9.4 L Hematocrit 30.8 L Mean Corpuscular 94.2 Volume Mean Corpuscular 28.7 L Hemoglobin Mean Corpuscular 30.5 L Hemoglobin Jory nt Red Cell 13.4 Distribution Width Platelet Count 241 Mean Platelet 9.9 Volume Immature 1.200 H Granulocytes % Neutrophils % 76.9 Lymphocytes % 12.0 L Monocytes % 8.0 Eosinophils % 1.5 Basophils % 0.4 Nucleated Red 0.0 Blood Cells % Immature 0.110 H Granulocytes # Neutrophils # 7.1 Lymphocytes # 1.1 Monocytes # 0.7 Eosinophils # 0.1 Basophils # 0.0 Nucleated Red 0.0 Blood Cells # Sodium Level 137 Potassium Level 4.5 Chloride Level 110 Carbon Dioxide 23 Level Anion Gap 4 L Blood Urea 18 Nitrogen Creatinine 1.00 Est Glomerular Filtrat Rate mL/min Glucose Level 191 Calcium Level 7.9 L Total Bilirubin 0.4 Direct Bilirubin 0.00 Indirect 0.4 Bilirubin Aspartate Amino 20 Transf (AST/SGOT ) Alanine 23 Aminotransferase (ALT/SGPT) Alkaline 114 Phosphatase Total Protein 5.1 L Albumin 2.3 L Globulin 2.80 Albumin/Globulin 0.82 Ratio Test 02/24/19 08:05 Bedside Glucose 166 Subjective 24 Hr Interval Summary Free Text/Dictation Patient complaining of slight pain but states controlled with PO and IV medications. No acute overnight events. Exam/Review of Systems Exam Vitals Vital Signs Date Temp Pulse Resp B/P (MAP) Pulse Ox O2 O2 Flow FiO2 Time Delivery Rate 02/24/19 Nasal 2.0 09:30 Cannula 02/24/19 98.1 60 19 129/60 90 08:00 (83) Intake and Output 02/23/19 02/23/19 02/24/19 1515:00 23:00 07:00 IntakeIntake Total 400 ml 1100 ml 185 ml BalanceBalance 400 ml 1100 ml 185 ml Exam General: no acute distress. answering questions appropriately Lungs: Clear to auscultation bilaterally no crackles rales or wheezing Heart: Normal S1-S2, Regular rhythm and rate. Abdomen: Soft , nontender, nondistended , bowel sounds are present. No guarding no rebound tenderness Extremities: Normal to inspection, no edema no cyanosis Skin: right foot dressing in place Results Results 24hrs Laboratory Tests Test 02/23/19 10:03 02/23/19 11:46 02/23/19 12:42 02/23/19 14:02 Lab Scanned REFERENCE LAB REFERENCE LAB Report Bedside Glucose 135 151 Test 02/23/19 16:49 02/23/19 20:15 02/24/19 01:40 02/24/19 04:57 Bedside Glucose 131 291 H 183 White Blood 9.2 Count Red Blood Count 3.27 L Hemoglobin 9.4 L Hematocrit 30.8 L Mean Corpuscular 94.2 Volume Mean Corpuscular 28.7 L Hemoglobin Mean Corpuscular 30.5 L Hemoglobin Jory nt Red Cell 13.4 Distribution Width Platelet Count 241 Mean Platelet 9.9 Volume Immature 1.200 H Granulocytes % Neutrophils % 76.9 Lymphocytes % 12.0 L Monocytes % 8.0 Eosinophils % 1.5 Basophils % 0.4 Nucleated Red 0.0 Blood Cells % Immature 0.110 H Granulocytes # Neutrophils # 7.1 Lymphocytes # 1.1 Monocytes # 0.7 Eosinophils # 0.1 Basophils # 0.0 Nucleated Red 0.0 Blood Cells # Sodium Level 137 Potassium Level 4.5 Chloride Level 110 Carbon Dioxide 23 Level Anion Gap 4 L Blood Urea 18 Nitrogen Creatinine 1.00 Est Glomerular Filtrat Rate mL/min Glucose Level 191 Calcium Level 7.9 L Total Bilirubin 0.4 Direct Bilirubin 0.00 Indirect 0.4 Bilirubin Aspartate Amino 20 Transf (AST/SGOT ) Alanine 23 Aminotransferase (ALT/SGPT) Alkaline 114 Phosphatase Total Protein 5.1 L Albumin 2.3 L Globulin 2.80 Albumin/Globulin 0.82 Ratio Test 02/24/19 08:05 Bedside Glucose 166 Medications Medication Current Medications Ondansetron HCl (Zofran Inj) 4 mg Q6H PRN IV NAUSEA AND/OR VOMITING Last administered on 02/21/19at 06:47; Admin Dose 4 MG; Start 02/21/19 at 01:30 Acetaminophen (Tylenol Liquid) 650 mg Q6H PRN PO PAIN LEVEL 1-3 OR FEVER Last administered on 02/24/19 08:53; Admin Dose 650 MG; Start 02/21/19 at 01:30 Acetaminophen/ Hydrocodone Bitart ([place] (5/325)) 1 tab Q6H PRN PO PAIN LEVEL 4 -6 Last administered on 02/24/19 04:21; Admin Dose 1 TAB; Start 02/21/19 at 01:30 Miscellaneous Information (* Miscellaneous Pharmacy Order) Treatment of Hypoglycemia: 1.BG 51... Per protocol XX ; Start 02/21/19 at 01:30 Famotidine (Pepcid Iv) 20 mg DAILY IV Last administered on 02/24/19at 08:43; Adm in Dose 20 MG; Start 02/21/19 at 09:00 Vancomycin HCl (Vanco Iv Per Pharmacy) VANCOMYCIN PER PHARMACY PER PROTOCOL XX ; Start 02/21/19 at 01:30 Piperacillin Sod/ Tazobactam Sod 100 ml @ 200 mls/hr Q6 IVPB Last administered on 02/24/19at 08:45; Admin Dose 200 MLS/HR; Start 02/21/19 at 06:00 Morphine Sulfate (morphine) 4 mg Q4H PRN IV SEVERE PAIN LEVEL 7-10 Last administered on 02/24/19 09:46; Admin Dose 4 MG; Start 02/21/19 at 05:30 Atorvastatin Calcium (Lipitor) 40 mg QHS PO Last administered on 02/23/19 20:22; Admin Dose 40 MG; Start 02/21/19 at 21:00 Carvedilol (Coreg) 3.125 mg BID PO Last administered on 02/24/19 08:42; Admin Dose 3.125 MG; Start 02/21/19 at 09:00 Docusate Sodium (Colace) 100 mg DAILY PO Last administered on 02/24/19 08:42; Admin Dose 100 MG; Start 02/21/19 at 09:00 Ferrous Sulfate (Ferrous Sulfate (Ec)) 325 mg QAM PO Last administered on 02/24/19 08:43; Admin Dose 325 MG; Start 02/21/19 at 09:00 Levothyroxine Sodium (Synthroid) 137 mcg BEFORE BREAKFAST PO Last administered on 02/24/19 06:22; Admin Dose 137 MCG; Start 02/21/19 at 07:00 Montelukast Sodium (Singulair) 10 mg QHS PO Last administered on 02/23/19 20:22; Admin Dose 10 MG; Start 02/21/19 at 21:00 Miscellaneous Information 1 ea NOTE XX ; Start 02/21/19 at 06:00 Glucose (Glutose) 15 gm Q15M PRN PO DECREASED GLUCOSE; Start 02/21/19 at 06:00 Glucose (Glutose) 22.5 gm Q15M PRN PO DECREASED GLUCOSE; Start 02/21/19 at 06:00 Dextrose (D50w Syringe) 25 ml Q15M PRN IV DECREASED GLUCOSE; Start 02/21/19 at 06:00 Dextrose (D50w Syringe) 50 ml Q15M PRN IV DECREASED GLUCOSE; Start 02/21/19 at 06:00 Glucagon (Glucagen) 1 mg Q15M PRN IM DECREASED GLUCOSE; Start 02/21/19 at 06:00 Glucose (Glutose) 15 gm Q15M PRN BUCCAL DECREASED GLUCOSE; Start 02/21/19 at 06:00 Insulin Aspart (Novolog Insulin Pen) 4 unit WITH BREAKFAST SC Last administered on 02/24/19 08:44; Admin Dose 4 UNIT; Start 02/21/19 at 08:00 Amlodipine Besylate (Norvasc) 5 mg DAILY PO Last administered on 02/24/19 08:42; Admin Dose 5 MG; Start 02/22/19 at 09:00 Sodium Hypochlorite (Dakins Diluted ()) 1 applic DAILY TP Last administered on 02/23/19 18:00; Admin Dose 1 APPLIC; Start 02/22/19 at 09:00 Aspirin (Aspirin) 81 mg DAILY PO Last administered on 02/24/19 08:43; Admin Dose 81 MG; Start 02/22/19 at 14:30 Insulin Glargine (Lantus) 10 units DAILY@2000 SC Last administered on 02/23/19 20:27; Admin Dose 10 UNITS; Start 02/23/19 at 20:00 Senna (Senokot) 2 tab BID PO Last administered on 02/24/19 08:43; Admin Dose 2 TAB; Start 02/23/19 at 22:30 Insulin Aspart (Novolog Insulin Pen) NOVOLOG *MILD* ALGORITHM WITH MEALS BEDTIME SC Last administered on 02/24/19 08:44; Admin Dose 1 UNIT; Start 02/24/19 at 08:00 Guaifenesin (Robitussin Liquid Cup) 200 mg Q4H PRN PO COUGH Last administered on 02/24/19 08:42; Admin Dose 200 MG; Start 02/24/19 at 00:30 Diagnostic Test (Pha) (Accu-Chek) 1 ea 02 XX ; Start 02/24/19 at 02:00 Vancomycin HCl 1.5 gm/Sodium Chloride 250 ml @ 83.333 mls/ hr Q24H IVPB ; Start 02/25/19 at 06:00 XUAN PROCTOR MD Feb 24, 2019 09:59
--- NOTE | 2019-02-24 13:40 | CONS ---
Assessment/Plan Assessment/Plan Hospital Course (Demo Recall) Patient is alert feels good she is eating lunch family at bedside no fevers overnight WBC 9.2 no shift no bands BUN 18 creatinine 1 Microbiology right foot wound culture grew staph aureus and enterococcus species Antimicrobials: Vancomycin, Zosyn Physical examination: Well-nourished well-developed fragile elderly woman who is alert in no distress. Head atraumatic normocephalic sclera nonicteric neck is supple chest rise symmetrical breath sounds clear heart: S1-S2. Abdomen soft bowel sounds present. Extremities without cyanosis, right foot dressing intact Assessment: 1. Right foot cellulitis with toe gangrene 2. Peripheral arterial disease status post abdominal aortogram with right popliteal artery angioplasty 02/23/19 3. Diabetes Plan: Patient remains stable were going to discontinue vancomycin, continue Zosyn, continue wound management per podiatry. Consultation Date/Type/Reason Admit Date/Time February 20, 2019 at 23:53 Initial Consult Date Type of Consult id Date/Time of Note DATE: 02/24/19 TIME: 13:40 Exam/Review of Systems Exam Vitals Vital Signs Date Temp Pulse Resp B/P (MAP) Pulse Ox O2 O2 Flow FiO2 Time Delivery Rate 02/24/19 Nasal 2.0 09:30 Cannula 02/24/19 98.1 60 19 129/60 90 08:00 (83) Intake and Output 02/23/19 02/23/19 02/24/19 1515:00 23:00 07:00 IntakeIntake Total 400 ml 1100 ml 185 ml BalanceBalance 400 ml 1100 ml 185 ml Results Result Diagram: 02/24/19 0457 02/24/19 0457 Results 24hrs Laboratory Tests Test 02/23/19 14:02 02/23/19 16:49 02/23/19 20:15 02/24/19 01:40 Bedside Glucose 151 131 291 H 183 Test 02/24/19 04:57 02/24/19 08:05 02/24/19 11:56 White Blood Count 9.2 Red Blood Count 3.27 L Hemoglobin 9.4 L Hematocrit 30.8 L Mean Corpuscular 94.2 Volume Mean Corpuscular 28.7 L Hemoglobin Mean Corpuscular 30.5 L Hemoglobin Concent Red Cell Distribution 13.4 Width Platelet Count 241 Mean Platelet Volume 9.9 Immature Granulocytes 1.200 H % Neutrophils % 76.9 Lymphocytes % 12.0 L Monocytes % 8.0 Eosinophils % 1.5 Basophils % 0.4 Nucleated Red Blood 0.0 Cells % Immature Granulocytes 0.110 H # Neutrophils # 7.1 Lymphocytes # 1.1 Monocytes # 0.7 Eosinophils # 0.1 Basophils # 0.0 Nucleated Red Blood 0.0 Cells # Sodium Level 137 Potassium Level 4.5 Chloride Level 110 Carbon Dioxide Level 23 Anion Gap 4 L Blood Urea Nitrogen 18 Creatinine 1.00 Est Glomerular Filtrat Rate mL/min Glucose Level 191 Calcium Level 7.9 L Total Bilirubin 0.4 Direct Bilirubin 0.00 Indirect Bilirubin 0.4 Aspartate Amino 20 Transf (AST/SGOT) Alanine 23 Aminotransferase (ALT /SGPT) Alkaline Phosphatase 114 Total Protein 5.1 L Albumin 2.3 L Globulin 2.80 Albumin/Globulin 0.82 Ratio Bedside Glucose 166 158 Medications Medication Current Medications Ondansetron HCl (Zofran Inj) 4 mg Q6H PRN IV NAUSEA AND/OR VOMITING Last administered on 02/21/19at 06:47; Admin Dose 4 MG; Start 02/21/19 at 01:30 Acetaminophen (Tylenol Liquid) 650 mg Q6H PRN PO PAIN LEVEL 1-3 OR FEVER Last administered on 02/24/19at 08:53; Admin Dose 650 MG; Start 02/21/19 at 01:30 Acetaminophen/ Hydrocodone Bitart ([place] (5/325)) 1 tab Q6H PRN PO PAIN LEVEL 4-6 Last administered on 02/24/19at 04:21; Admin Dose 1 TAB; Start 02/21/19 at 01:30 Miscellaneous Information (* Miscellaneous Pharmacy Order) Treatment of Hypoglycemia: 1.BG 51... Per protocol XX ; Start 02/21/19 at 01:30 Famotidine (Pepcid Iv) 20 mg DAILY IV Last administered on 02/24/19at 08:43; Admin Dose 20 MG; Start 02/21/19 at 09:00 Vancomycin HCl (Vanco Iv Per Pharmacy) VANCOMYCIN PER PHARMACY PER PROTOCOL XX ; Start 02/21/19 at 01:30 Piperacillin Sod/ Tazobactam Sod 100 ml @ 200 mls/hr Q6 IVPB Last administered on 02/24/19at 08:45; Admin Dose 200 MLS/HR; Start 02/21/19 at 06:00 Morphine Sulfate (morphine) 4 mg Q4H PRN IV SEVERE PAIN LEVEL 7-10 Last administered on 02/24/19 09:46; Admin Dose 4 MG; Start 02/21/19 at 05:30 Atorvastatin Calcium (Lipitor) 40 mg QHS PO Last administered on 02/23/19 20:22; Admin Dose 40 MG; Start 02/21/19 at 21:00 Carvedilol (Coreg) 3.125 mg BID PO Last administered on 02/24/19 08:42; Admin Dose 3.125 MG; Start 02/21/19 at 09:00 Docusate Sodium (Colace) 100 mg DAILY PO Last administered on 02/24/19 08:42; Admin Dose 100 MG; Start 02/21/19 at 09:00 Ferrous Sulfate (Ferrous Sulfate (Ec)) 325 mg QAM PO Last administered on 02/24/19 08:43; Admin Dose 325 MG; Start 02/21/19 at 09:00 Montelukast Sodium (Singulair) 10 mg QHS PO Last administered on 02/23/19 20:22; Admin Dose 10 MG; Start 02/21/19 at 21:00 Miscellaneous Information 1 ea NOTE XX ; Start 02/21/19 at 06:00 Glucose (Glutose) 15 gm Q15M PRN PO DECREASED GLUCOSE; Start 02/21/19 at 06:00 Glucose (Glutose) 22.5 gm Q15M PRN PO DECREASED GLUCOSE; Start 02/21/19 at 06 :00 Dextrose (D50w Syringe) 25 ml Q15M PRN IV DECREASED GLUCOSE; Start 02/21/19 at 06:00 Dextrose (D50w Syringe) 50 ml Q15M PRN IV DECREASED GLUCOSE; Start 02/21/19 at 06:00 Glucagon (Glucagen) 1 mg Q15M PRN IM DECREASED GLUCOSE; Start 02/21/19 at 06:00 Glucose (Glutose) 15 gm Q15M PRN BUCCAL DECREASED GLUCOSE; Start 02/21/19 at 06:00 Insulin Aspart (Novolog Insulin Pen) 4 unit WITH BREAKFAST SC Last administered on 02/24/19 08:44; Admin Dose 4 UNIT; Start 02/21/19 at 08:00 Amlodipine Besylate (Norvasc) 5 mg DAILY PO Last administered on 02/24/19 08:42; Admin Dose 5 MG; Start 02/22/19 at 09:00 Sodium Hypochlorite (Dakins Diluted ()) 1 applic DAILY TP Last administered on 02/23/19 18:00; Admin Dose 1 APPLIC; Start 02/22/19 at 09:00 Aspirin (Aspirin) 81 mg DAILY PO Last administered on 02/24/19 08:43; Admin Dose 81 MG; Start 02/22/19 at 14:30 Insulin Glargine (Lantus) 10 units DAILY@2000 SC Last administered on 02/23/19 20:27; Admin Dose 10 UNITS; Start 02/23/19 at 20:00 Senna (Senokot) 2 tab BID PO Last administered on 02/24/19 08:43; Admin Dose 2 TAB; Start 02/23/19 at 22:30 Insulin Aspart (Novolog Insulin Pen) NOVOLOG *MILD* ALGORITHM WITH MEALS BEDTIME SC Last administered on 02/24/19 12:00; Admin Dose 1 UNIT; Start 02/24/19 at 08:00 Guaifenesin (Robitussin Liquid Cup) 200 mg Q4H PRN PO COUGH Last administered on 02/24/19 08:42; Admin Dose 200 MG; Start 02/24/19 at 00:30 Diagnostic Test (Pha) (Accu-Chek) 1 ea 02 XX ; Start 02/24/19 at 02:00 Vancomycin HCl 1.5 gm/Sodium Chloride 250 ml @ 83.333 mls/ hr Q24H IVPB ; Start 02/25/19 at 06:00 Miscellaneous Information (*Rx Drug Level Order Reminder*) VANCO TROUGH 02/25 @ 0,500 0500 ONCE XX ; Start 02/25/19 at 05:00; Stop 02/25/19 at 05:01 Heparin Sodium (Porcine) (Heparin (5000 Units/1ml)) 5,000 unit BID SC ; Start 02/24/19 at 21:00 Levothyroxine Sodium (Synthroid) 150 mcg BEFORE BREAKFAST PO ; Start 02/25/19 at 07:00 TORI GARCIA NP Feb 24, 2019 13:40
[2019-02-24 14:00] VITALS: BP 111/58; PULSE 58; RESP 16
[2019-02-24] MEDS ORDERED: FUROSEMIDE 20 MG INJ IV ONE (14:30)
[2019-02-24] MEDS: ALBUTEROL 0.083% (NEB) 2.5 MG/3 ML AMP HHN PRN (15:57)
[2019-02-24 20:00] VITALS: BP 120/58; PULSE 68; RESP 19
[2019-02-24] MEDS: MONTELUKAST 10 MG TAB PO SCH (20:18)
[2019-02-24] MEDS: ATORVASTATIN 40 MG TAB PO SCH (20:18)
[2019-02-24] MEDS: HEPARIN 5,000 UNIT/1 ML VIAL SC SCH (20:20)
[2019-02-24] MEDS: INSULIN GLARGINE [LANTus] (100 UNITS/ML) SYG SC SCH (20:29)
[2019-02-24] MEDS ORDERED: POLYETHYLENE GLYCOL 17 GM PACKET PO PRN (21:30)
[2019-02-25 02:00] VITALS: BP 115/57; PULSE 61; RESP 17
[2019-02-25] MEDS: ACCUCHECK AT 2AM (Patients on SS coverage) XX SCH (02:00)
[2019-02-25] MEDS: HYDROCODONE/APAP (5/325) TAB PO PRN ×2 (04:24→20:31)
[2019-02-25] MEDS ORDERED: LEVOTHYROXINE 150 MCG TAB ONE (05:24)
[2019-02-25] MEDS: PIPER-TAZO 3.375 GM IV (PMX) 100 ML IVPB SCH ×4 (05:57→23:52)
[2019-02-25] MEDS ORDERED: VANCOMYCIN HCL 1.5 GM in SOD CHLORIDE 0.9% 250 ML IVPB SCH (06:00)
[2019-02-25] MEDS: LEVOTHYROXINE 150 MCG TAB PO SCH (06:00)
[2019-02-25] MEDS: INSULIN ASPART [NOVOLOG] 3 ML PEN SC SCH ×5 (08:00→20:24)
[2019-02-25 08:13] VITALS: BP 122/61; PULSE 55; RESP 17
[2019-02-25] MEDS: morphine 4 MG/ML VIAL IV PRN ×2 (08:31→17:02)
[2019-02-25] MEDS: DAKINS 0.0125%(1/40) 473 ML SOLUTION TP SCH (09:00)
[2019-02-25] MEDS: HEPARIN 5,000 UNIT/1 ML VIAL SC SCH ×2 (09:01→20:26)
[2019-02-25] MEDS: ASPIRIN 81 MG TAB PO SCH (09:06)
[2019-02-25] MEDS: FERROUS SULFATE (EC) 325 MG TAB PO SCH (09:06)
[2019-02-25] MEDS: FAMOTIDINE 20 MG INJ IV SCH (09:06)
[2019-02-25] MEDS: DOCUSATE SODIUM 100 MG CAP PO SCH (09:06)
[2019-02-25] MEDS: SENNA TAB PO SCH (09:06)
[2019-02-25] MEDS: AMLODIPINE 5 MG TAB PO SCH (09:07)
[2019-02-25] MEDS: ALBUTEROL 0.083% (NEB) 2.5 MG/3 ML AMP HHN PRN ×3 (09:22→23:44)
--- NOTE | 2019-02-25 09:36 | PN ---
Date/Time of Note Date/Time of Note DATE: 02/25/19 TIME: 09:29 Assessment/Plan VTE Prophylaxis Risk score (from Nsg)>0 risk: 8 SCD applied (from Nsg): Yes Pharmacological prophylaxis: heparin Lines/Catheters IV Catheter Type (from Nrsg): Peripheral IV Urinary Cath still in place: No Assessment/Plan Assessment/Plan 1. 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 Family concerned about appearance of toe and will reassess today - ID consultation appreciated and okay for PO antibiotics upon discharge. Continue Zosyn for now - Arterial imaging studies noted and will need fem/pop 2. Poorly controlled diabetes mellitus - A1c noted - Will continue home Lantus and adjust as needed - DM education consultation appreciated 3. h/o CAD s/p PCI - continue home medications - Cardiology consultation appreciated. continue on aspirin 4. HTN - continue home medications with holding parameters 5. hypothyroidism - TSH noted and will increase levothyroxine dose - will need outpatient repeat thyroid studies in 4-6 weeks 6. Hyperlipidemia - continue statin 7. PAD - Vascular consultation appreciated and plans for fem pop given angiogram findings when able - aspirin on board 8. Disposition - Podiatry to reassess right toe given increase in pain. Awaiting fem-pop with Vascular surgery Result Diagram: 02/24/19 0457 02/24/197 Results 24hrs Laboratory Tests Test 02/24/19 11:56 02/24/19 17:10 02/24/19 20:22 02/25/19 02:36 Bedside Glucose 158 237 H 204 148 Test 02/25/19 08:14 Bedside Glucose 125 Subjective 24 Hr Interval Summary Free Text/Dictation Patient currently complaining of pain in right foot. Per daughter dressing change was performed and concerned about appearance of the toe. Requesting for podiatry to see patient if possible. Exam/Review of Systems Exam Vitals Vital Signs Date Temp Pulse Resp B/P (MAP) Pulse Ox O2 O2 Flow FiO2 Time Delivery Rate 02/25/19 64 20 94 Nasal 2.0 09:23 Cannula 02/25/19 97.8 122/61 08:13 (81) Intake and Output 02/24/19 02/24/19 02/25/19 1515:00 23:00 07:00 IntakeIntake Total 365 ml 700 ml 200 ml BalanceBalance 365 ml 700 ml 200 ml Exam General: mild distress secondary to pain Lungs: Clear to auscultation bilaterally no crackles rales or wheezing Heart: Normal S1-S2, Regular rhythm and rate. Abdomen: Soft , nontender, nondistended , bowel sounds are present. No guarding no rebound tenderness Extremities: Normal to inspection, no edema no cyanosis Skin: right foot dressing in place Results Results 24hrs Laboratory Tests Test 02/24/19 11:56 02/24/19 17:10 02/24/19 20:22 02/25/19 02:36 Bedside Glucose 158 237 H 204 148 Test 02/25/19 08:14 Bedside Glucose 125 Medications Medication Current Medications Ondansetron HCl (Zofran Inj) 4 mg Q6H PRN IV NAUSEA AND/OR VOMITING Last administered on 02/21/19 06:47; Admin Dose 4 MG; Start 02/21/19 at 01:30 Acetaminophen (Tylenol Liquid) 650 mg Q6H PRN PO PAIN LEVEL 1-3 OR FEVER Last administered on 02/24/19 08:53; Admin Dose 650 MG; Start 02/21/19 at 01:30 Acetaminophen/ Hydrocodone Bitart ([place] (5/325)) 1 tab Q6H PRN PO PAIN LEVEL 4-6 Last administered on 02/25/19 04:24; Admin Dose 1 TAB; Start 02/21/19 at 01:30 Miscellaneous Information (* Miscellaneous Pharmacy Order) Treatment of Hypoglycemia: 1.BG 51... Per protocol XX ; Start 02/21/19 at 01:30 Famotidine (Pepcid Iv) 20 mg DAILY IV Last administered on 02/25/19at 09:06; Admin Dose 20 MG; Start 02/21/19 at 09:00 Piperacillin Sod/ Tazobactam Sod 100 ml @ 200 mls/hr Q6 IVPB Last administered on 02/25/19 05:57; Admin Dose 200 MLS/HR; Start 02/21/19 at 06:00 Morphine Sulfate (morphine) 4 mg Q4H PRN IV SEVERE PAIN LEVEL 7-10 Last administered on 02/25/19 08:31; Admin Dose 4 MG; Start 02/21/19 at 05:30 Atorvastatin Calcium (Lipitor) 40 mg QHS PO Last administered on 02/24/19 20:18; Admin Dose 40 MG; Start 02/21/19 at 21:00 Carvedilol (Coreg) 3.125 mg BID PO Last administered on 02/24/19 20:19; Admin Dose 3.125 MG; Start 02/21/19 at 09:00 Docusate Sodium (Colace) 100 mg DAILY PO Last administered on 02/25/19 09:06; Admin Dose 100 MG; Start 02/21/19 at 09:00 Ferrous Sulfate (Ferrous Sulfate (Ec)) 325 mg QAM PO Last administered on 02/25/19 09:06; Admin Dose 325 MG; Start 02/21/19 at 09:00 Montelukast Sodium (Singulair) 10 mg QHS PO Last administered on 02/24/19 20:18; Admin Dose 10 MG; Start 02/21/19 at 21:00 Miscellaneous Information 1 ea NOTE XX ; Start 02/21/19 at 06:00 Glucose (Glutose) 15 gm Q15M PRN PO DECREASED GLUCOSE; Start 02/21/19 at 06:00 Glucose (Glutose) 22.5 gm Q15M PRN PO DECREASED GLUCOSE; Start 02/21/19 at 06:00 Dextrose (D50w Syringe) 25 ml Q15M PRN IV DECREASED GLUCOSE; Start 02/21/19 at 06:00 Dextrose (D50w Syringe) 50 ml Q15M PRN IV DECREASED GLUCOSE; Start 02/21/19 at 06:00 Glucagon (Glucagen) 1 mg Q15M PRN IM DECREASED GLUCOSE; Start 02/21/19 at 06:00 Glucose (Glutose) 15 gm Q15M PRN BUCCAL DECREASED GLUCOSE; Start 02/21/19 at 06:00 Insulin Aspart (Novolog Insulin Pen) 4 unit WITH BREAKFAST SC Last administered on 02/25/19 09:01; Admin Dose 4 UNIT; Start 02/21/19 at 08:00 Amlodipine Besylate (Norvasc) 5 mg DAILY PO Last administered on 02/25/19 09:07; Admin Dose 5 MG; Start 02/22/19 at 09:00 Sodium Hypochlorite (Dakins Diluted (40)) 1 applic DAILY TP Last administered on 02/23/19at 18:00; Admin Dose 1 APPLIC; Start 02/22/19 at 09:00 Aspirin (Aspirin) 81 mg DAILY PO Last administered on 02/25/19 09:06; Admin Dose 81 MG; Start 02/22/19 at 14:30 Insulin Glargine (Lantus) 10 units DAILY@2000 SC Last administered on 02/24/19 20:29; Admin Dose 10 UNITS; Start 02/23/19 at 20:00 Senna (Senokot) 2 tab BID PO Last administered on 02/25/19 09:06; Admin Dose 2 TAB; Start 02/23/19 at 22:30 Insulin Aspart (Novolog Insulin Pen) NOVOLOG *MILD* ALGORITHM WITH MEALS BEDTIME SC Last administered on 02/24/19 20:26; Admin Dose 1 UNIT; Start 02/24/19 at 08:00 Guaifenesin (Robitussin Liquid Cup) 200 mg Q4H PRN PO COUGH Last administered on 02/24/19 23:32; Admin Dose 200 MG; Start 02/24/19 at 00:30 Diagnostic Test (Pha) (Accu-Chek) 1 ea 02 XX ; Start 02/24/19 at 02:00 Heparin Sodium (Porcine) (Heparin (5000 Units/1ml)) 5,000 unit BID SC Last administered on 02/25/19 09:01; Admin Dose 5,000 UNIT; Start 02/24/19 at 21:00 Levothyroxine Sodium (Synthroid) 150 mcg BEFORE BREAKFAST PO Last administered on 02/25/19 06:00; Admin Dose 150 MCG; Start 02/25/19 at 07:00 Albuterol (Proventil 0.083% (Neb)) 2.5 mg Q2H RESP THERAPY PRN HHN SHORTNESS OF BREATH Last administered on 02/25/19 09:22; Admin Dose 2.5 MG; Start 02/24/19 at 14:30 XUAN PROCTOR MD Feb 25, 2019 09:36
[2019-02-25] MEDS ORDERED: SENNA/DOCUSATE NA (8.6MG/50MG) TAB PO PRN (10:00)
[2019-02-25] MEDS ORDERED: BISACODYL 10 MG SUPP PR PRN (10:00)
[2019-02-25] MEDS: POLYETHYLENE GLYCOL 17 GM PACKET PO PRN ×2 (11:18→20:31)
[2019-02-25] MEDS: GUAIFENESIN 20 MG/ML 5ML CUP PO PRN (11:18)
[2019-02-25 14:00] VITALS: BP 121/58; PULSE 61; RESP 17
--- NOTE | 2019-02-25 14:59 | CONS ---
Assessment/Plan Assessment/Plan Hospital Course (Demo Recall) No acute changes, looks comfortable Microbiology right foot wound culture grew REAL and enterococcus species Antimicrobials: Zosyn Physical examination: Well-nourished well-developed fragile elderly woman who is alert in no distress. Head atraumatic normocephalic sclera nonicteric neck is supple chest rise symmetrical breath sounds clear heart: S1-S2. Abdomen soft bowel sounds present. Extremities without cyanosis, right foot dressing intact Assessment: 1. Right foot cellulitis with toe gangrene 2. Peripheral arterial disease status post abdominal aortogram with right popliteal artery angioplasty 02/23/19 3. Diabetes Plan: Patient remains stable, continue wound management per podiatry, anticipate dc on oral abx. Consultation Date/Type/Reason Admit Date/Time February 20, 2019 at 23:53 Initial Consult Date Type of Consult id Date/Time of Note DATE: 02/25/19 TIME: 14:58 Exam/Review of Systems Exam Vitals Vital Signs Date Temp Pulse Resp B/P (MAP) Pulse Ox O2 O2 Flow FiO2 Time Delivery Rate 02/25/19 98.0 61 17 121/58 96 14:00 (79) 02/25/19 Nasal 2.0 13:49 Cannula Intake and Output 02/24/19 02/24/19 02/25/19 1515:00 23:00 07:00 IntakeIntake Total 365 ml 700 ml 200 ml BalanceBalance 365 ml 700 ml 200 ml Results Result Diagram: 02/24/19 0457 02/24/19 0457 Results 24hrs Laboratory Tests Test 02/24/19 17:10 02/24/19 20:22 02/25/19 02:36 02/25/19 08:14 Bedside Glucose 237 H 204 148 125 Test 02/25/19 12:06 Bedside Glucose 159 Medications Medication Current Medications Ondansetron HCl (Zofran Inj) 4 mg Q6H PRN IV NAUSEA AND/OR VOMITING Last administered on 02/21/19at 06:47; Admin Dose 4 MG; Start 02/21/19 at 01:30 Acetaminophen (Tylenol Liquid) 650 mg Q6H PRN PO PAIN LEVEL 1-3 OR FEVER Last administered on 02/24/19at 08:53; Admin Dose 650 MG; Start 02/21/19 at 01:30 Acetaminophen/ Hydrocodone Bitart ([place] (5/325)) 1 tab Q6H PRN PO PAIN LEVEL 4-6 Last administered on 02/25/19at 04:24; Admin Dose 1 TAB; Start 02/21/19 at 01:30 Miscellaneous Information (* Miscellaneous Pharmacy Order) Treatment of Hypoglycemia: 1.BG 51... Per protocol XX ; Start 02/21/19 at 01:30 Famotidine (Pepcid Iv) 20 mg DAILY IV Last administered on 02/25/19at 09:06; Admin Dose 20 MG; Start 02/21/19 at 09:00 Piperacillin Sod/ Tazobactam Sod 100 ml @ 200 mls/hr Q6 IVPB Last administered on 02/25/19at 12:02; Admin Dose 200 MLS/HR; Start 02/21/19 at 06:00 Morphine Sulfate (morphine) 4 mg Q4H PRN IV SEVERE PAIN LEVEL 7-10 Last administered on 02/25/19at 08:31; Admin Dose 4 MG; Start 02/21/19 at 05:30 Atorvastatin Calcium (Lipitor) 40 mg QHS PO Last administered on 02/24/19at 20:18; Admin Dose 40 MG; Start 02/21/19 at 21:00 Carvedilol (Coreg) 3.125 mg BID PO Last administered on 02/24/19 20:19; Admin Dose 3.125 MG; Start 02/21/19 at 09:00 Ferrous Sulfate (Ferrous Sulfate (Ec)) 325 mg QAM PO Last administered on 02/25/19at 09:06; Admin Dose 325 MG; Start 02/21/19 at 09:00 Montelukast Sodium (Singulair) 10 mg QHS PO Last administered on 02/24/19at 20:18; Admin Dose 10 MG; Start 02/21/19 at 21:00 Miscellaneous Information 1 ea NOTE XX ; Start 02/21/19 at 06:00 Glucose (Glutose) 15 gm Q15M PRN PO DECREASED GLUCOSE; Start 02/21/19 at 06:00 Glucose (Glutose) 22.5 gm Q15M PRN PO DECREASED GLUCOSE; Start 02/21/19 at 06:00 Dextrose (D50w Syringe) 25 ml Q15M PRN IV DECREASED GLUCOSE; Start 02/21/19 at 06:00 Dextrose (D50w Syringe) 50 ml Q15M PRN IV DECREASED GLUCOSE; Start 02/21/19 at 06:00 Glucagon (Glucagen) 1 mg Q15M PRN IM DECREASED GLUCOSE; Start 02/21/19 at 06:00 Glucose (Glutose) 15 gm Q15M PRN BUCCAL DECREASED GLUCOSE; Start 02/21/19 at 06:00 Insulin Aspart (Novolog Insulin Pen) 4 unit WITH BREAKFAST SC Last administered on 02/25/19 09:01; Admin Dose 4 UNIT; Start 02/21/19 at 08:00 Amlodipine Besylate (Norvasc) 5 mg DAILY PO Last administered on 02/25/19 09:07; Admin Dose 5 MG; Start 02/22/19 at 09:00 Sodium Hypochlorite (Dakins Diluted ()) 1 applic DAILY TP Last administered on 02/23/19 18:00; Admin Dose 1 APPLIC; Start 02/22/19 at 09:00 Aspirin (Aspirin) 81 mg DAILY PO Last administered on 02/25/19 09:06; Admin Dos e 81 MG; Start 02/22/19 at 14:30 Insulin Glargine (Lantus) 10 units DAILY@2000 SC Last administered on 02/24/19 20:29; Admin Dose 10 UNITS; Start 02/23/19 at 20:00 Insulin Aspart (Novolog Insulin Pen) NOVOLOG *MILD* ALGORITHM WITH MEALS BEDTIME SC Last administered on 02/25/19 12:07; Admin Dose 1 UNIT; Start 02/24/19 at 08:00 Guaifenesin (Robitussin Liquid Cup) 200 mg Q4H PRN PO COUGH Last administered on 02/25/19 11:18; Admin Dose 200 MG; Start 02/24/19 at 00:30 Diagnostic Test (Pha) (Accu-Chek) 1 ea 02 XX ; Start 02/24/19 at 02:00 Heparin Sodium (Porcine) (Heparin (5000 Units/1ml)) 5,000 unit BID SC Last administered on 02/25/19 09:01; Admin Dose 5,000 UNIT; Start 02/24/19 at 21:00 Levothyroxine Sodium (Synthroid) 150 mcg BEFORE BREAKFAST PO Last administered on 02/25/19 06:00; Admin Dose 150 MCG; Start 02/25/19 at 07:00 Albuterol (Proventil 0.083% (Neb)) 2.5 mg Q2H RESP THERAPY PRN HHN SHORTNESS OF BREATH Last administered on 02/25/19at 13:49; Admin Dose 2.5 MG; Start 02/24/19 at 14:30 Polyethylene Glycol (Miralax) 17 gm DAILY PRN PO CONSTIPATION Last administered on 02/25/19at 11:18; Admin Dose 17 GM; Start 02/25/19 at 10:00 Senna/Docusate Sodium (Senokot-S) 1 tab BID PRN PO constipation; Start 02/25/19 at 10:00 Bisacodyl (Dulcolax Supp) [address] CONSTIPATION; Start 02/25/19 at 10:00 TORI GARCIA NP Feb 25, 2019 14:59
--- NOTE | 2019-02-25 15:03 | CONS ---
DATE OF ADMISSION: 02/20/2019 DATE OF CONSULTATION: 02/25/2019 SUBJECTIVE: The patient is being followed for right foot ulceration, status post debridement, has pe rsistent skin necrosis. The patient is awaiting vascular intervention. The patient did have vein ma pping in preparation for right lower extremity bypass. The patient relates intermittent pain to the right lower extremity. OBJECTIVE: VITAL SIGNS: Temperature 97.8, pulse is 55, respiratory rate 17, blood pressure is 122/61, pulse ox is 97 on room air. GENERAL: The patient is alert, oriented, in no acute distress. EXTREMITIES: Right foot with ulceration in medial aspect of the hallux with further adjacent tissue necrosis. The extremity feels warm at the knee and lower leg. LABORATORIES: WBC 9.2, hemoglobin 9.4, hematocrit 30.8, platelets 241. Glucose is 159. DIAGNOSTIC DATA: Vein mapping reviewed. MRI of right foot: Soft tissue ulceration medial aspect of great toe with osteomyelitis. Pathology: Gangrenous tissue of skin and subcutaneous tissue. No evidence of malignancy. Cultures: Staphylococcus aureus and Enterococcus species. ASSESSMENT: 1. Right foot gangrene. 2. Right foot osteomyelitis. 3. Peripheral arterial disease. 4. Right foot cellulitis. 5. Diabetes type 2. 6. Status post right popliteal artery angioplasty. PLAN: I discussed at length with family. She has a pending open right lower extremity bypass. Furt her foot surgery to follow. Additional nursing recommendations have been given. The patient has sta ph, enterococcus species and currently on vancomycin and Zosyn. The patient and family education wer e provided. We will further coordinate surgical treatment. Dictated By: ERIN HAYWOOD DPM RB/MARIANNA Conf#: [id number] DID#: [id number] CC: IGOR SCHWAB MD; ERIN HAYWOOD DPM;*EndCC*
[2019-02-25 20:00] VITALS: BP 119/59; PULSE 63; RESP 18
[2019-02-25] MEDS: ATORVASTATIN 40 MG TAB PO SCH (20:22)
[2019-02-25] MEDS: MONTELUKAST 10 MG TAB PO SCH (20:22)
[2019-02-25] MEDS: INSULIN GLARGINE [LANTus] (100 UNITS/ML) SYG SC SCH (20:25)
[2019-02-26] MEDS: ACCUCHECK AT 2AM (Patients on SS coverage) XX SCH (01:27)
[2019-02-26 02:00] VITALS: BP 117/56; PULSE 50; RESP 17
[2019-02-26] MEDS: GUAIFENESIN 20 MG/ML 5ML CUP PO PRN ×4 (05:57→21:06)
[2019-02-26] MEDS: HYDROCODONE/APAP (5/325) TAB PO PRN ×3 (05:57→23:57)
[2019-02-26] MEDS: PIPER-TAZO 3.375 GM IV (PMX) 100 ML IVPB SCH ×3 (05:57→17:53)
[2019-02-26] MEDS: LEVOTHYROXINE 150 MCG TAB PO SCH (06:02)
[2019-02-26 07:28] VITALS: BP 141/68; PULSE 61; RESP 16
--- NOTE | 2019-02-26 07:50 | CONS ---
DATE OF ADMISSION: 02/20/2019 DATE OF CONSULTATION: 02/23/2019 TYPE OF CONSULTATION: Infectious disease. REASON FOR CONSULTATION: Antibiotic management. HISTORY OF PRESENT ILLNESS: The patient is a very pleasant 74-year-old female who comes in with right toe swelling of 2 months' duration. She has a history of diabetes mellitus. She has this infection intermittently over the past 4 days, has had purulent drainage prior to admission without fever or chills. HOSPITAL COURSE: The patient was seen by Dr. Akbar on the . She notes that she had a blister to the right foot for approximately 4 or 5 days. She was severely hyperglycemic. Problems include h ypertension, diabetes, hyperlipidemia, hypothyroidism and coronary artery disease. Right hallux is c yanotic and cold. There is an ulceration with gangrene the on the medial aspect of the hallux, small ulceration at the distal aspect of the right third toe and the x-ray revealed gas gangrene at t he great toe. The patient was seen by Dr. Inman also, partner of Dr. Haywood in podiatry. On , the patient had right hallux excisional debridement because of right hallux gas gangrene, elena betic ulcer, peripheral neuropathy. The patient was seen again by Dr. Inman. Continue with chayo y dressings. He asked for noninvasive arterial studies, which showed diffuse monophasic waveforms co nsistent with significant iliac arteries inflow stenosis. Her white count on the was 9.1. The patient was seen by Dr. Eng today and she had an abdominal aortogram with right lower extremity run off and right popliteal artery angioplasty, so she had surgery with right popliteal artery angioplast y. The patient came in with right great toe gangrene. Intraoperative cultures were done. She is gr owing Staphylococcus aureus and Enterococcus species from the . The patient is currently on vanc omycin. PAST MEDICAL HISTORY: Operations as outlined. PHYSICAL EXAMINATION: At the present time: HEENT: Within normal limits. NECK: Supple. LYMPH NODES: None palpable. LUNGS: Clear to P and A. HEART: Without murmur or gallop. ABDOMEN: Soft, nontender. EXTREMITIES: Without cyanosis, clubbing. The right foot actually is bandaged, and she has evidence of surgery in the right groin. PLAN: We will continue her on her therapy for the Staphylococcus aureus and enterococcus that is jorge luis wing in her wound and for this, she is on appropriate antibiotics in the form of vancomycin. I will be happy to follow in her care. I will dictate my findings to the hospitalist. It should be noted t hat the soft tissue ulceration medial aspect of the right great toe with osteomyelitis at the proxima l metaphysis of the first distal phalanx, so if that area has not been debrided out, she will require 6 weeks of IV antibiotic therapy. Dictated By: HAILEY CARRENO MD, JD/NTS Conf#: [id number] DID#: [id number] CC: ALVIN ENG MD; ERIN HAYWOOD DPM;*[facility]*
[2019-02-26] MEDS: INSULIN ASPART [NOVOLOG] 3 ML PEN SC SCH ×5 (08:00→21:00)
[2019-02-26] MEDS: FERROUS SULFATE (EC) 325 MG TAB PO SCH (08:39)
[2019-02-26] MEDS: FAMOTIDINE 20 MG INJ IV SCH (08:40)
[2019-02-26] MEDS: AMLODIPINE 5 MG TAB PO SCH (08:40)
[2019-02-26] MEDS: ASPIRIN 81 MG TAB PO SCH (08:40)
[2019-02-26] MEDS: HEPARIN 5,000 UNIT/1 ML VIAL SC SCH ×2 (08:41→21:08)
[2019-02-26] MEDS: DAKINS 0.0125%(1/40) 473 ML SOLUTION TP SCH (08:42)
[2019-02-26] MEDS: morphine 4 MG/ML VIAL IV PRN (11:42)
[2019-02-26 14:15] VITALS: BP 141/64; PULSE 54; RESP 16
--- NOTE | 2019-02-26 15:40 | PN ---
Date/Time of Note Date/Time of Note DATE: 02/26/19 TIME: 15:40 Objective Vitals Vital Signs Date Temp Pulse Resp B/P (MAP) Pulse Ox O2 O2 Flow FiO2 Time Delivery Rate 02/26/19 97.9 54 16 141/64 91 Nasal 14:15 (89) Cannula 02/26/19 2.0 11:15 Intake and Output 02/25/19 02/25/19 02/26/19 1515:00 23:00 07:00 IntakeIntake Total 1140 ml 550 ml 600 ml BalanceBalance 1140 ml 550 ml 600 ml Results Result Diagram: 02/26/1943802/26/19438 Medications Medications Current Medications Ondansetron HCl (Zofran Inj) 4 mg Q6H PRN IV NAUSEA AND/OR VOMITING Last administered on 02/21/19 06:47; Admin Dose 4 MG; Start 02/21/19 at 01:30 Acetaminophen (Tylenol Liquid) 650 mg Q6H PRN PO PAIN LEVEL 1-3 OR FEVER Last administered on 02/24/19 08:53; Admin Dose 650 MG; Start 02/21/19 at 01:30 Acetaminophen/ Hydrocodone Bitart ([place] (5/325)) 1 tab Q6H PRN PO PAIN LEVEL 4-6 Last administered on 02/26/19 05:57; Admin Dose 1 TAB; Start 02/21/19 at 01:30 Miscellaneous Information (* Miscellaneous Pharmacy Order) Treatment of Hypoglycemia: 1.BG 51... Per protocol XX ; Start 02/21/19 at 01:30 Piperacillin Sod/ Tazobactam Sod 100 ml @ 200 mls/hr Q6 IVPB Last administered on 02/26/19 11:42; Admin Dose 200 MLS/HR; Start 02/21/19 at 06:00 Morphine Sulfate (morphine) 4 mg Q4H PRN IV SEVERE PAIN LEVEL 7-10 Last ad ministered on 02/26/19 11:42; Admin Dose 4 MG; Start 02/21/19 at 05:30 Atorvastatin Calcium (Lipitor) 40 mg QHS PO Last administered on 02/25/19 20:22; Admin Dose 40 MG; Start 02/21/19 at 21:00 Carvedilol (Coreg) 3.125 mg BID PO Last administered on 02/26/19 08:40; Admin Dose 3.125 MG; Start 02/21/19 at 09:00 Ferrous Sulfate (Ferrous Sulfate (Ec)) 325 mg QAM PO Last administered on 02/26/19 08:39; Admin Dose 325 MG; Start 02/21/19 at 09:00 Montelukast Sodium (Singulair) 10 mg QHS PO Last administered on 02/25/19 20:22; Admin Dose 10 MG; Start 02/21/19 at 21:00 Miscellaneous Information 1 ea NOTE XX ; Start 02/21/19 at 06:00 Glucose (Glutose) 15 gm Q15M PRN PO DECREASED GLUCOSE; Start 02/21/19 at 06:00 Glucose (Glutose) 22.5 gm Q15M PRN PO DECREASED GLUCOSE; Start 02/21/19 at 06:00 Dextrose (D50w Syringe) 25 ml Q15M PRN IV DECREASED GLUCOSE; Start 02/21/19 at 06:00 Dextrose (D50w Syringe) 50 ml Q15M PRN IV DECREASED GLUCOSE; Start 02/21/19 at 06:00 Glucagon (Glucagen) 1 mg Q15M PRN IM DECREASED GLUCOSE; Start 02/21/19 at 06:00 Glucose (Glutose) 15 gm Q15M PRN BUCCAL DECREASED GLUCOSE; Start 02/21/19 at 06:00 Insulin Aspart (Novolog Insulin Pen) 4 unit WITH BREAKFAST SC Last administered on 02/26/19 08:42; Admin Dose 4 UNIT; Start 02/21/19 at 08:00 Amlodipine Besylate (Norvasc) 5 mg DAILY PO Last administered on 02/26/19 08:40; Admin Dose 5 MG; Start 02/22/19 at 09:00 Sodium Hypochlorite (Dakins Diluted ()) 1 applic DAILY TP Last administered on 02/23/19 18:00; Admin Dose 1 APPLIC; Start 02/22/19 at 09:00 Aspirin (Aspirin) 81 mg DAILY PO Last administered on 02/26/19 08:40; Admin Dose 81 MG; Start 02/22/19 at 14:30 Insulin Glargine (Lantus) 10 units DAILY@2000 SC Last administered on 02/25/19 20:25; Admin Dose 10 UNITS; Start 02/23/19 at 20:00 Insulin Aspart (Novolog Insulin Pen) NOVOLOG *MILD* ALGORITHM WITH MEALS BEDTIME SC Last administered on 02/25/19 20:24; Admin Dose 1 UNIT; Start 02/24/19 at 08:00 Guaifenesin (Robitussin Liquid Cup) 200 mg Q4H PRN PO COUGH Last administered on 02/26/19 11:51; Admin Dose 200 MG; Start 02/24/19 at 00:30 Diagnostic Test (Pha) (Accu-Chek) 1 ea 02 XX ; Start 02/24/19 at 02:00 Heparin Sodium (Porcine) (Heparin (5000 Units/1ml)) 5,000 unit BID SC Last administered on 02/26/19 08:41; Admin Dose 5,000 UNIT; Start 02/24/19 at 21:00 Levothyroxine Sodium (Synthroid) 150 mcg BEFORE BREAKFAST PO Last administered on 02/26/19 06:02; Admin Dose 150 MCG; Start 02/25/19 at 07:00 Polyethylene Glycol (Miralax) 17 gm DAILY PRN PO CONSTIPATION Last administered on 02/25/19at 20:31; Admin Dose 17 GM; Start 02/25/19 at 10:00 Senna/Docusate Sodium (Senokot-S) 1 tab BID PRN PO constipation; Start 02/25/19 at 10:00 Bisacodyl (Dulcolax Supp) 10 mg DAILY PRN [place] CONSTIPATION; Start 02/25/19 at 10:00 Albuterol/ Ipratropium (Duoneb) 3 ml Q6HWA RESP THERAPY HHN ; Start 02/26/19 at 20:00 Albuterol/ Ipratropium (Duoneb) 3 ml Q2H RESP THERAPY PRN HHN shortness of breath; Start 02/26/19 at 15:00 Budesonide (Pulmicort (Neb)) 0.5 mg BID RESP THERAPY HHN ; Start 02/26/19 at 20:00 Famotidine (Pepcid) 20 mg DAILY PO ; Start 02/27/19 at 09:00 VTE Prophylaxis Risk score (from Nsg)>0 risk: 7 SCD applied (from Nsg): Yes Lines/Catheters IV Catheter Type: Goodman in Place: No Assessment/Plan Hospital Course Subjective Patient doing well, minimal toe pain Objective Physical exam General: Patient is laying in bed and answers questions appropriately Mentation: Patient is alert and oriented 4, Head: Normocephalic atraumatic Eyes: EOMI, pupils reactive to light Neck: Supple, nontender, midline Respiratory: Clear to auscultation bilaterally Cardiovascular: regular rate, no obvious murmurs Gastrointestinal: non-tender to palpation, bowel sounds heard. Neurological: Moves all extremities spontaneously Skin: Surgical site, bandage, CDI Assessment/Plan 1. 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 Family concerned about appearance of toe and will reassess today - ID consultation appreciated and okay for PO antibiotics upon discharge. Continue Zosyn for now - Arterial imaging studies noted and will need fem/pop 2. Poorly controlled diabetes mellitus - A1c noted - Will continue home Lantus and adjust as needed - DM education consultation appreciated 3. h/o CAD s/p PCI - continue home medications - Cardiology consultation appreciated. continue on aspirin 4. HTN - continue home medications with holding parameters 5. hypothyroidism - TSH noted and will increase levothyroxine dose - will need outpatient repeat thyroid studies in 4-6 weeks 6. Hyperlipidemia - continue statin 7. PAD - Vascular consultation appreciated and plans for fem pop given angiogram findings when able - aspirin on board 8. Disposition -Vascular surgery attempted to find OR time however may not be able to get it done this week, continue IV antibiotics for now BRADLEY LEONG Feb 26, 2019 15:40
--- NOTE | 2019-02-26 15:41 | CONS ---
Assessment/Plan Assessment/Plan Hospital Course (Demo Recall) No acute changes Microbiology right foot wound culture grew REAL and enterococcus species Antimicrobials: Zosyn Physical examination: Well-nourished well-developed fragile elderly woman who is alert in no distress. Head atraumatic normocephalic sclera nonicteric neck is supple chest rise symmetrical breath sounds clear heart: S1-S2. Abdomen soft bowel sounds present. Extremities without cyanosis, right foot dressing intact Assessment: 1. Right foot cellulitis with toe gangrene 2. Peripheral arterial disease status post abdominal aortogram with right popliteal artery angioplasty 02/23/19 3. Diabetes Plan: Patient remains stable, continue wound management per podiatry, pending bypass surgery. Consultation Date/Type/Reason Admit Date/Time February 20, 2019 at 23:53 Initial Consult Date Type of Consult id Date/Time of Note DATE: 02/26/19 TIME: 15:40 Exam/Review of Systems Exam Vitals Vital Signs Date Temp Pulse Resp B/P (MAP) Pulse Ox O2 O2 Flow FiO2 Time Delivery Rate 02/26/19 97.9 54 16 141/64 91 Nasal 14:15 (89) Cannula 02/26/19 2.0 11:15 Intake and Output 02/25/19 02/25/19 02/26/19 1515:00 23:00 07:00 IntakeIntake Total 1140 ml 550 ml 600 ml BalanceBalance 1140 ml 550 ml 600 ml Results Result Diagram: 02/26/19 0439 02/26/19 0439 Results 24hrs Laboratory Tests Test 02/25/19 17:05 02/25/19 20:20 02/26/19 01:19 02/26/19 04:39 Bedside Glucose 188 212 151 White Blood Count 8.4 Red Blood Count 3.38 L Hemoglobin 9.6 L Hematocrit 31.2 L Mean Corpuscular Volume 92.3 Mean Corpuscular 28.4 L Hemoglobin Mean Corpuscular 30.8 L Hemoglobin Concent Red Cell Distribution 13.5 Width Platelet Count 321 # Mean Platelet Volume 9.9 Immature Granulocytes % 1.300 H Neutrophils % 72.2 Lymphocytes % 15.6 Monocytes % 8.0 Eosinophils % 2.3 Basophils % 0.6 Nucleated Red Blood 0.0 Cells % Immature Granulocytes # 0.110 H Neutrophils # 6.0 Lymphocytes # 1.3 Monocytes # 0.7 Eosinophils # 0.2 Basophils # 0.1 Nucleated Red Blood 0.0 Cells # Sodium Level 135 Potassium Level 4.9 Chloride Level 104 Carbon Dioxide Level 26 Anion Gap 5 Blood Urea Nitrogen 21 H Creatinine 0.99 Glucose Level 142 # Calcium Level 8.3 L Phosphorus Level 3.4 Magnesium Level 2.0 Albumin 2.7 L Test 02/26/19 08:07 02/26/19 11:46 Bedside Glucose 123 109 Medications Medication Current Medications Ondansetron HCl (Zofran Inj) 4 mg Q6H PRN IV NAUSEA AND/OR VOMITING Last administered on 02/21/19 06:47; Admin Dose 4 MG; Start 02/21/19 at 01:30 Acetaminophen (Tylenol Liquid) 650 mg Q6H PRN PO PAIN LEVEL 1-3 OR FEVER Last administered on 02/24/19 08:53; Admin Dose 650 MG; Start 02/21/19 at 01:30 Acetaminophen/ Hydrocodone Bitart ([place] (5/325)) 1 tab Q6H PRN PO PAIN LEVEL 4-6 Last administered on 02/26/19 05:57; Admin Dose 1 TAB; Start 02/21/19 at 01:30 Miscellaneous Information (* Miscellaneous Pharmacy Order) Treatment of Hypo glycemia: 1.BG 51... Per protocol XX ; Start 02/21/19 at 01:30 Piperacillin Sod/ Tazobactam Sod 100 ml @ 200 mls/hr Q6 IVPB Last administered on 02/26/19 11:42; Admin Dose 200 MLS/HR; Start 02/21/19 at 06:00 Morphine Sulfate (morphine) 4 mg Q4H PRN IV SEVERE PAIN LEVEL 7-10 Last administered on 02/26/19 11:42; Admin Dose 4 MG; Start 02/21/19 at 05:30 Atorvastatin Calcium (Lipitor) 40 mg QHS PO Last administered on 02/25/19 20:22; Admin Dose 40 MG; Start 02/21/19 at 21:00 Carvedilol (Coreg) 3.125 mg BID PO Last administered on 02/26/19 08:40; Admin Dose 3.125 MG; Start 02/21/19 at 09:00 Ferrous Sulfate (Ferrous Sulfate (Ec)) 325 mg QAM PO Last administered on 02/26/19 08:39; Admin Dose 325 MG; Start 02/21/19 at 09:00 Montelukast Sodium (Singulair) 10 mg QHS PO Last administered on 02/25/19 20:22; Admin Dose 10 MG; Start 02/21/19 at 21:00 Miscellaneous Information 1 ea NOTE XX ; Start 02/21/19 at 06:00 Glucose (Glutose) 15 gm Q15M PRN PO DECREASED GLUCOSE; Start 02/21/19 at 06:00 Glucose (Glutose) 22.5 gm Q15M PRN PO DECREASED GLUCOSE; Start 02/21/19 at 06:00 Dextrose (D50w Syringe) 25 ml Q15M PRN IV DECREASED GLUCOSE; Start 02/21/19 at 06:00 Dextrose (D50w Syringe) 50 ml Q15M PRN IV DECREASED GLUCOSE; Start 02/21/19 at 06:00 Glucagon (Glucagen) 1 mg Q15M PRN IM DECREASED GLUCOSE; Start 02/21/19 at 06:00 Glucose (Glutose) 15 gm Q15M PRN BUCCAL DECREASED GLUCOSE; Start 02/21/19 at 06:00 Insulin Aspart (Novolog Insulin Pen) 4 unit WITH BREAKFAST SC Last administere d on 02/26/19at 08:42; Admin Dose 4 UNIT; Start 02/21/19 at 08:00 Amlodipine Besylate (Norvasc) 5 mg DAILY PO Last administered on 02/26/19 08:40; Admin Dose 5 MG; Start 02/22/19 at 09:00 Sodium Hypochlorite (Dakins Diluted ()) 1 applic DAILY TP Last administered on 02/23/19at 18:00; Admin Dose 1 APPLIC; Start 02/22/19 at 09:00 Aspirin (Aspirin) 81 mg DAILY PO Last administered on 02/26/19 08:40; Admin Dose 81 MG; Start 02/22/19 at 14:30 Insulin Glargine (Lantus) 10 units DAILY@2000 SC Last administered on 02/25/19 20:25; Admin Dose 10 UNITS; Start 02/23/19 at 20:00 Insulin Aspart (Novolog Insulin Pen) NOVOLOG *MILD* ALGORITHM WITH MEALS BEDTIME SC Last administered on 02/25/19 20:24; Admin Dose 1 UNIT; Start 02/24/19 at 08:00 Guaifenesin (Robitussin Liquid Cup) 200 mg Q4H PRN PO COUGH Last administered on 02/26/19at 11:51; Admin Dose 200 MG; Start 02/24/19 at 00:30 Diagnostic Test (Pha) (Accu-Chek) 1 ea 02 XX ; Start 02/24/19 at 02:00 Heparin Sodium (Porcine) (Heparin (5000 Units/1ml)) 5,000 unit BID SC Last administered on 02/26/19at 08:41; Admin Dose 5,000 UNIT; Start 02/24/19 at 21:00 Levothyroxine Sodium (Synthroid) 150 mcg BEFORE BREAKFAST PO Last administered on 02/26/19at 06:02; Admin Dose 150 MCG; Start 02/25/19 at 07:00 Polyethylene Glycol (Miralax) 17 gm DAILY PRN PO CONSTIPATION Last administered on 02/25/19at 20:31; Admin Dose 17 GM; Start 02/25/19 at 10:00 Senna/Docusate Sodium (Senokot-S) 1 tab BID PRN PO constipation; Start 02/25/19 at 10:00 Bisacodyl (Dulcolax Supp) 10 mg DAILY PRN [place] CONSTIPATION; Start 02/25/19 at 10:00 Albuterol/ Ipratropium (Duoneb) 3 ml Q6HWA RESP THERAPY HHN ; Start 02/26/19 at 20:00 Albuterol/ Ipratropium (Duoneb) 3 ml Q2H RESP THERAPY PRN HHN shortness of breath; Start 02/26/19 at 15:00 Budesonide (Pulmicort (Neb)) 0.5 mg BID RESP THERAPY HHN ; Start 02/26/19 at 20:00 Famotidine (Pepcid) 20 mg DAILY PO ; Start 02/27/19 at 09:00 TORI GARCIA NP Feb 26, 2019 15:41
[2019-02-26] MEDS: ALBUTEROL/IPRATROPIUM (NEB) 3 ML AMP HHN PRN (16:13)
[2019-02-26] MEDS ORDERED: FUROSEMIDE 20 MG INJ IV ONE (17:30)
[2019-02-26] MEDS ORDERED: METHYLPREDNISOLONE 125 MG INJ IV ONE (17:30)
[2019-02-26 19:45] VITALS: BP 137/69; PULSE 67; RESP 17
[2019-02-26] MEDS: ALBUTEROL/IPRATROPIUM (NEB) 3 ML AMP HHN SCH (19:48)
[2019-02-26] MEDS: BUDESONIDE (NEB) 0.5MG/2ML AMP HHN SCH (19:59)
[2019-02-26] MEDS: ATORVASTATIN 40 MG TAB PO SCH (21:05)
[2019-02-26] MEDS: MONTELUKAST 10 MG TAB PO SCH (21:05)
[2019-02-26] MEDS: POLYETHYLENE GLYCOL 17 GM PACKET PO PRN (21:05)
[2019-02-26] MEDS: INSULIN GLARGINE [LANTus] (100 UNITS/ML) SYG SC SCH (21:09)
[2019-02-27] MEDS: ACCUCHECK AT 2AM (Patients on SS coverage) XX SCH (02:00)
[2019-02-27 02:12] VITALS: BP 143/63; PULSE 57; RESP 17
[2019-02-27] MEDS: GUAIFENESIN 20 MG/ML 5ML CUP PO PRN (06:26)
[2019-02-27] MEDS: PIPER-TAZO 3.375 GM IV (PMX) 100 ML IVPB SCH ×4 (06:26→17:31)
[2019-02-27] MEDS: LEVOTHYROXINE 150 MCG TAB PO SCH (06:26)
[2019-02-27 07:28] VITALS: BP 127/59; PULSE 57; RESP 16
[2019-02-27] MEDS: ALBUTEROL/IPRATROPIUM (NEB) 3 ML AMP HHN SCH ×3 (08:00→19:59)
[2019-02-27] MEDS: AMLODIPINE 5 MG TAB PO SCH (08:24)
[2019-02-27] MEDS: FAMOTIDINE 20 MG TAB PO SCH (08:24)
[2019-02-27] MEDS: ASPIRIN 81 MG TAB PO SCH (08:24)
[2019-02-27] MEDS: FERROUS SULFATE (EC) 325 MG TAB PO SCH (08:24)
[2019-02-27] MEDS: INSULIN ASPART [NOVOLOG] 3 ML PEN SC SCH ×5 (08:26→22:13)
[2019-02-27] MEDS: HEPARIN 5,000 UNIT/1 ML VIAL SC SCH ×2 (08:27→20:59)
[2019-02-27] MEDS: BUDESONIDE (NEB) 0.5MG/2ML AMP HHN SCH ×2 (08:55→19:59)
[2019-02-27] MEDS: DAKINS 0.0125%(1/40) 473 ML SOLUTION TP SCH (09:00)
[2019-02-27 14:15] VITALS: BP 113/57; PULSE 67; RESP 16
--- NOTE | 2019-02-27 14:58 | CONS ---
Assessment/Plan Assessment/Plan Hospital Course (Demo Recall) No acute changes awake, looks comfortable, no fevers Microbiology right foot wound culture grew REAL and enterococcus species Antimicrobials: Zosyn Physical examination: Well-nourished well-developed fragile elderly woman who is alert in no distress. Head atraumatic normocephalic sclera nonicteric neck is supple chest rise symmetrical breath sounds clear heart: S1-S2. Abdomen soft bowel sounds present. Extremities without cyanosis, right foot dressing intact Assessment: 1. Right foot cellulitis with toe gangrene 2. Peripheral arterial disease status post abdominal aortogram with right popliteal artery angioplasty 02/23/19 3. Diabetes Plan: Patient remains stable, continue wound management per podiatry, pending bypass surgery, monitor cxr, encourage IS. Consultation Date/Type/Reason Admit Date/Time February 20, 2019 at 23:53 Initial Consult Date Type of Consult id Date/Time of Note DATE: 02/27/19 TIME: 14:57 Exam/Review of Systems Exam Vitals Vital Signs Date Temp Pulse Resp B/P (MAP) Pulse Ox O2 O2 Flow FiO2 Time Delivery Rate 02/27/19 98.0 67 16 113/57 99 Nasal 14:15 (75) Cannula 02/27/19 2.0 14:01 02/26/19 28 19:51 Intake and Output 02/26/19 02/26/19 02/27/19 1414:59 22:59 06:59 IntakeIntake Total 500 ml 450 ml 100 ml BalanceBalance 500 ml 450 ml 100 ml Results Result Diagram: 02/27/19 0535 02/27/19 0535 Results 24hrs Laboratory Tests Test 02/26/19 16:55 02/26/19 21:03 02/27/19 01:48 02/27/19 05:35 Bedside Glucose 106 142 164 White Blood Count 6.8 Red Blood Count 3.35 L Hemoglobin 9.5 L Hematocrit 30.3 L Mean Corpuscular Volume 90.4 Mean Corpuscular 28.4 L Hemoglobin Mean Corpuscular 31.4 L Hemoglobin Concent Red Cell Distribution 13.2 Width Platelet Count 331 Mean Platelet Volume 9.7 Immature Granulocytes % 1.500 H Neutrophils % 85.9 H Lymphocytes % 10.9 L Monocytes % 1.6 Eosinophils % 0.0 Basophils % 0.1 Nucleated Red Blood 0.0 Cells % Immature Granulocytes # 0.100 H Neutrophils # 5.8 Lymphocytes # 0.7 L Monocytes # 0.1 L Eosinophils # 0.0 Basophils # 0.0 Nucleated Red Blood 0.0 Cells # Sodium Level 137 Potassium Level 4.2 Chloride Level 103 Carbon Dioxide Level 26 Anion Gap 8 Blood Urea Nitrogen 19 Creatinine 0.94 Glucose Level 179 Calcium Level 8.0 L Phosphorus Level 4.7 Magnesium Level 2.0 Albumin 2.6 L Test 02/27/19 08:01 02/27/19 12:15 Bedside Glucose 192 264 H Medications Medication Current Medications Ondansetron HCl (Zofran Inj) 4 mg Q6H PRN IV NAUSEA AND/OR VOMITING Last administered on 02/21/19 06:47; Admin Dose 4 MG; Start 02/21/19 at 01:30 Acetaminophen (Tylenol Liquid) 650 mg Q6H PRN PO PAIN LEVEL 1-3 OR FEVER Last administered on 02/24/19 08:53; Admin Dose 650 MG; Start 02/21/19 at 01:30 Acetaminophen/ Hydrocodone Bitart ([place] (5/325)) 1 tab Q6H PRN PO PAIN LEVEL 4-6 Last administered on 02/26/19 23:57; Admin Dose 1 TAB; Start 02/21/19 at 01:30 Piperacillin Sod/ Tazobactam Sod 100 ml @ 200 mls/hr Q6 IVPB Last administered on 02/27/19 12:22; Admin Dose 200 MLS/HR; Start 02/21/19 at 06:00 Morphine Sulfate (morphine) 4 mg Q4H PRN IV SEVERE PAIN LEVEL 7-10 Last administered on 02/26/19 11:42; Admin Dose 4 MG; Start 02/21/19 at 05:30 Atorvastatin Calcium (Lipitor) 40 mg QHS PO Last administered on 02/26/19 21:05; Admin Dose 40 MG; Start 02/21/19 at 21:00 Carvedilol (Coreg) 3.125 mg BID PO Last administered on 02/26/19 21:06; Admin Dose 3.125 MG; Start 02/21/19 at 09:00 Ferrous Sulfate (Ferrous Sulfate (Ec)) 325 mg QAM PO Last administered on 02/27/19 08:24; Admin Dose 325 MG; Start 02/21/19 at 09:00 Montelukast Sodium (Singulair) 10 mg QHS PO Last administered on 02/26/19at 21:05; Admin Dose 10 MG; Start 02/21/19 at 21:00 Miscellaneous Information 1 ea NOTE XX ; Start 02/21/19 at 06:00 Glucose (Glutose) 15 gm Q15M PRN PO DECREASED GLUCOSE; Start 02/21/19 at 06:00 Glucose (Glutose) 22.5 gm Q15M PRN PO DECREASED GLUCOSE; Start 02/21/19 at 06:00 Dextrose (D50w Syringe) 25 ml Q15M PRN IV DECREASED GLUCOSE; Start 02/21/19 at 06:00 Dextrose (D50w Syringe) 50 ml Q15M PRN IV DECREASED GLUCOSE; Start 02/21/19 at 06:00 Glucagon (Glucagen) 1 mg Q15M PRN IM DECREASED GLUCOSE; Start 02/21/19 at 06:00 Glucose (Glutose) 15 gm Q15M PRN BUCCAL DECREASED GLUCOSE; Start 02/21/19 at 06:00 Insulin Aspart (Novolog Insulin Pen) 4 unit WITH BREAKFAST SC Last administered on 02/27/19at 08:26; Admin Dose 4 UNIT; Start 02/21/19 at 08:00 Amlodipine Besylate (Norvasc) 5 mg DAILY PO Last administered on 02/27/19 08:24; Admin Dose 5 MG; Start 02/22/19 at 09:00 Sodium Hypochlorite (Dakins Diluted (40)) 1 applic DAILY TP Last administered on 02/23/19at 18:00; Admin Dose 1 APPLIC; Start 02/22/19 at 09:00 Aspirin (Aspirin) 81 mg DAILY PO Last administered on 02/27/19at 08:24; Admin Dose 81 MG; Start 02/22/19 at 14:30 Insulin Glargine (Lantus) 10 units DAILY@2000 SC Last administered on 02/26/19 21:09; Admin Dose 10 UNITS; Start 02/23/19 at 20:00 Insulin Aspart (Novolog Insulin Pen) NOVOLOG *MILD* ALGORITHM WITH MEALS BEDTIME SC Last administered on 02/27/19at 12:25; Admin Dose 4 UNIT; Start 02/24/19 at 08:00 Guaifenesin (Robitussin Liquid Cup) 200 mg Q4H PRN PO COUGH Last administered on 02/27/19 06:26; Admin Dose 200 MG; Start 02/24/19 at 00:30 Diagnostic Test (Pha) (Accu-Chek) 1 ea 02 XX ; Start 02/24/19 at 02:00 Heparin Sodium (Porcine) (Heparin (5000 Units/1ml)) 5,000 unit BID SC Last administered on 02/27/19 08:27; Admin Dose 5,000 UNIT; Start 02/24/19 at 21:00 Levothyroxine Sodium (Synthroid) 150 mcg BEFORE BREAKFAST PO Last administered on 02/27/19 06:26; Admin Dose 150 MCG; Start 02/25/19 at 07:00 Polyethylene Glycol (Miralax) 17 gm DAILY PRN PO CONSTIPATION Last administered on 02/26/19 21:05; Admin Dose 17 GM; Start 02/25/19 at 10:00 Senna/Docusate Sodium (Senokot-S) 1 tab BID PRN PO constipation; Start 02/25/19 at 10:00 Bisacodyl (Dulcolax Supp) 10 mg DAILY PRN [place] CONSTIPATION; Start 02/25/19 at 10:00 Albuterol/ Ipratropium (Duoneb) 3 ml Q6HWA RESP THERAPY HHN Last administered on 02/27/19 13:59; Admin Dose 3 ML; Start 02/26/19 at 20:00 Albuterol/ Ipratropium (Duoneb) 3 ml Q2H RESP THERAPY PRN HHN shortness of breath Last administered on 02/26/19 16:13; Admin Dose 3 ML; Start 02/26/19 at 15:00 Budesonide (Pulmicort (Neb)) 0.5 mg BID RESP THERAPY HHN Last administered on 02/26/19 19:59; Admin Dose 0.5 MG; Start 02/26/19 at 20:00 Famotidine (Pepcid) 20 mg DAILY PO Last administered on 02/27/19 08:24; Admin Dose 20 MG; Start 02/27/19 at 09:00 TORI GARCIA NP Feb 27, 2019 14:58
--- NOTE | 2019-02-27 15:11 | PN ---
Date/Time of Note Date/Time of Note DATE: 02/27/19 TIME: 15:07 Objective Vitals Vital Signs Date Temp Pulse Resp B/P (MAP) Pulse Ox O2 O2 Flow FiO2 Time Delivery Rate 02/27/19 98.0 67 16 113/57 99 Nasal 14:15 (75) Cannula 02/27/19 2.0 14:01 02/26/19 28 19:51 Intake and Output 02/26/19 02/26/19 02/27/19 1515:00 23:00 07:00 IntakeIntake Total 500 ml 450 ml 100 ml BalanceBalance 500 ml 450 ml 100 ml Results Result Diagram: 02/27/19 0535 02/27/1935 Medications Medications Current Medications Ondansetron HCl (Zofran Inj) 4 mg Q6H PRN IV NAUSEA AND/OR VOMITING Last administered on 02/21/19 06:47; Admin Dose 4 MG; Start 02/21/19 at 01:30 Acetaminophen (Tylenol Liquid) 650 mg Q6H PRN PO PAIN LEVEL 1-3 OR FEVER Last administered on 02/24/19 08:53; Admin Dose 650 MG; Start 02/21/19 at 01:30 Acetaminophen/ Hydrocodone Bitart ([place] (5/325)) 1 tab Q6H PRN PO PAIN LEVEL 4-6 Last administered on 02/26/19 23:57; Admin Dose 1 TAB; Start 02/21/19 at 01:30 Piperacillin Sod/ Tazobactam Sod 100 ml @ 200 mls/hr Q6 IVPB Last administered on 02/27/19 12:22; Admin Dose 200 MLS/HR; Start 02/21/19 at 06:00 Morphine Sulfate (morphine) 4 mg Q4H PRN IV SEVERE PAIN LEVEL 7-10 Last administered on 02/26/19 11:42; Admin Dose 4 MG; Start 02/21/19 at 05:30 Atorvastatin Calcium (Lipitor) 40 mg QHS PO Last administered on 02/26/19 21:05; Admin Dose 40 MG; Start 02/21/19 at 21:00 Carvedilol (Coreg) 3.125 mg BID PO Last administered on 02/26/19 21:06; Admin Dose 3.125 MG; Start 02/21/19 at 09:00 Ferrous Sulfate (Ferrous Sulfate (Ec)) 325 mg QAM PO Last administered on 02/27/19 08:24; Admin Dose 325 MG; Start 02/21/19 at 09:00 Montelukast Sodium (Singulair) 10 mg QHS PO Last administered on 02/26/19 21:05; Admin Dose 10 MG; Start 02/21/19 at 21:00 Miscellaneous Information 1 ea NOTE XX ; Start 02/21/19 at 06:00 Glucose (Glutose) 15 gm Q15M PRN PO DECREASED GLUCOSE; Start 02/21/19 at 06:00 Glucose (Glutose) 22.5 gm Q15M PRN PO DECREASED GLUCOSE; Start 02/21/19 at 06:00 Dextrose (D50w Syringe) 25 ml Q15M PRN IV DECREASED GLUCOSE; Start 02/21/19 at 06:00 Dextrose (D50w Syringe) 50 ml Q15M PRN IV DECREASED GLUCOSE; Start 02/21/19 at 06:00 Glucagon (Glucagen) 1 mg Q15M PRN IM DECREASED GLUCOSE; Start 02/21/19 at 06:00 Glucose (Glutose) 15 gm Q15M PRN BUCCAL DECREASED GLUCOSE; Start 02/21/19 at 06:00 Insulin Aspart (Novolog Insulin Pen) 4 unit WITH BREAKFAST SC Last administered on 02/27/19 08:26; Admin Dose 4 UNIT; Start 02/21/19 at 08:00 Amlodipine Besylate (Norvasc) 5 mg DAILY PO Last administered on 02/27/19 08:24; Admin Dose 5 MG; Start 02/22/19 at 09:00 Sodium Hypochlorite (Dakins Diluted ()) 1 applic DAILY TP Last administered on 02/23/19 18:00; Admin Dose 1 APPLIC; Start 02/22/19 at 09:00 Aspirin (Aspirin) 81 mg DAILY PO Last administered on 02/27/19 08:24; Admin Dose 81 MG; Start 02/22/19 at 14:30 Insulin Glargine (Lantus) 10 units DAILY@2000 SC Last administered on 02/26/19 21:09; Admin Dose 10 UNITS; Start 02/23/19 at 20:00 Insulin Aspart (Novolog Insulin Pen) NOVOLOG *MILD* ALGORITHM WITH MEALS BEDTIME SC Last administered on 02/27/19 12:25; Admin Dose 4 UNIT; Start 02/24/19 at 08:00 Guaifenesin (Robitussin Liquid Cup) 200 mg Q4H PRN PO COUGH Last administered on 02/27/19 06:26; Admin Dose 200 MG; Start 02/24/19 at 00:30 Diagnostic Test (Pha) (Accu-Chek) 1 ea 02 XX ; Start 02/24/19 at 02:00 Heparin Sodium (Porcine) (Heparin (5000 Units/1ml)) 5,000 unit BID SC Last administered on 02/27/19 08:27; Admin Dose 5,000 UNIT; Start 02/24/19 at 21:00 Levothyroxine Sodium (Synthroid) 150 mcg BEFORE BREAKFAST PO Last administered on 02/27/19 06:26; Admin Dose 150 MCG; Start 02/25/19 at 07:00 Polyethylene Glycol (Miralax) 17 gm DAILY PRN PO CONSTIPATION Last administered on 02/26/19 21:05; Admin Dose 17 GM; Start 02/25/19 at 10:00 Senna/Docusate Sodium (Senokot-S) 1 tab BID PRN PO constipation; Start 02/25/19 at 10:00 Bisacodyl (Dulcolax Supp) 10 mg DAILY PRN [place] CONSTIPATION; Start 02/25/19 at 10:00 Albuterol/ Ipratropium (Duoneb) 3 ml Q6HWA RESP THERAPY HHN Last administered on 02/27/19 13:59; Admin Dose 3 ML; Start 02/26/19 at 20:00 Albuterol/ Ipratropium (Duoneb) 3 ml Q2H RESP THERAPY PRN HHN shortness of breath Last administered on 02/26/19 16:13; Admin Dose 3 ML; Start 02/26/19 at 15:00 Budesonide (Pulmicort (Neb)) 0.5 mg BID RESP THERAPY HHN Last administered on 02/26/19 19:59; Admin Dose 0.5 MG; Start 02/26/19 at 20:00 Famotidine (Pepcid) 20 mg DAILY PO Last administered on 02/27/19 08:24; Admin Dose 20 MG; Start 02/27/19 at 09:00 VTE Prophylaxis Risk score (from Nsg)>0 risk: 6 SCD applied (from Nsg): Yes Lines/Catheters IV Catheter Type: Goodman in Place: No Assessment/Plan Hospital Course Subjective Patient doing well, minimal toe pain, mild respiratory issues has resolved from yesterday Objective Physical exam General: Patient is laying in bed and answers questions appropriately Mentation: Patient is alert and oriented 4, Head: Normocephalic atraumatic Eyes: EOMI, pupils reactive to light Neck: Supple, nontender, midline Respiratory: Very mild wheezing to auscultation bilaterally Cardiovascular: regular rate, no obvious murmurs Gastrointestinal: non-tender to palpation, bowel sounds heard. Neurological: Moves all extremities spontaneously Skin: Surgical site, bandage, CDI Assessment/Plan 1. 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 - ID consultation appreciated and okay for PO antibiotics upon discharge. Continue Zosyn for now - Arterial imaging studies noted and will need fem/pop bypass, however vascular having difficulty finding time in his schedule and OR time Bilateral wheezing, worse on right side shortness of breath, resolving -DuoNeb, budesonide nebulizer -Patient had worsening episode yesterday however is feeling well after 1 dose of steroid and 1 dose of IV Lasix -Chest x-ray showing edema versus pneumonia, unlikely pneumonia given patient has been on antibiotics this whole time however patient does have significant wheezing so may be edema versus some sort of possible undiagnosed asthma versus COPD, will repeat chest x-ray tomorrow morning and obtain BNP level, -Monitor closely 2. Poorly controlled diabetes mellitus - A1c noted - Will continue home Lantus and adjust as needed - DM education consultation appreciated 3. h/o CAD s/p PCI - continue home medications - Cardiology consultation appreciated. continue on aspirin 4. HTN - continue home medications with holding parameters 5. hypothyroidism - TSH noted and will increase levothyroxine dose - will need outpatient repeat thyroid studies in 4-6 weeks 6. Hyperlipidemia - continue statin 7. PAD - Vascular consultation appreciated and plans for fem pop given angiogram findings when able - aspirin on board 8. Disposition -Vascular surgery attempted to find OR time however may not be able to get it done this week, continue IV antibiotics for now BRADLEY LEONG Feb 27, 2019 15:11
[2019-02-27 19:40] VITALS: BP 124/60; PULSE 70; RESP 20
[2019-02-27] MEDS: MONTELUKAST 10 MG TAB PO SCH (20:57)
[2019-02-27] MEDS: ATORVASTATIN 40 MG TAB PO SCH (20:57)
[2019-02-27] MEDS: INSULIN GLARGINE [LANTus] (100 UNITS/ML) SYG SC SCH (22:12)
[2019-02-27] MEDS: HYDROCODONE/APAP (5/325) TAB PO PRN (22:36)
[2019-02-28] MEDS: PIPER-TAZO 3.375 GM IV (PMX) 100 ML IVPB SCH ×5 (00:14→23:58)
[2019-02-28] MEDS: ACCU-CHEK XX SCH ×2 (02:00→20:54)
[2019-02-28 02:08] VITALS: BP 113/57; PULSE 60; RESP 17
[2019-02-28] MEDS: HYDROCODONE/APAP (5/325) TAB PO PRN (04:39)
[2019-02-28] MEDS: LEVOTHYROXINE 150 MCG TAB PO SCH (06:01)
[2019-02-28] MEDS: INSULIN ASPART [NOVOLOG] 3 ML PEN SC SCH ×7 (08:22→20:50)
[2019-02-28] MEDS: ALBUTEROL/IPRATROPIUM (NEB) 3 ML AMP HHN SCH ×3 (08:59→20:15)
[2019-02-28] MEDS: DAKINS 0.0125%(1/40) 473 ML SOLUTION TP SCH (09:00)
[2019-02-28 09:01] VITALS: BP 144/72; PULSE 86; RESP 18
[2019-02-28] MEDS: BUDESONIDE (NEB) 0.5MG/2ML AMP HHN SCH ×2 (09:09→20:16)
[2019-02-28] MEDS: FAMOTIDINE 20 MG TAB PO SCH (09:38)
[2019-02-28] MEDS: FERROUS SULFATE (EC) 325 MG TAB PO SCH (09:38)
[2019-02-28] MEDS: AMLODIPINE 5 MG TAB PO SCH (09:38)
[2019-02-28] MEDS: ASPIRIN 81 MG TAB PO SCH (09:38)
[2019-02-28] MEDS: HEPARIN 5,000 UNIT/1 ML VIAL SC SCH ×2 (09:40→20:54)
[2019-02-28 14:00] VITALS: BP 112/73; PULSE 61; RESP 20
--- NOTE | 2019-02-28 14:19 | CONS ---
DATE OF ADMISSION: 02/20/2019 DATE OF CONSULTATION: 02/28/2019 SUBJECTIVE FINDINGS: The patient being followed for right foot ulceration, status post debridement, is pending open revascularization, time for OR availability with Dr. Rich. OBJECTIVE FINDINGS: VITAL SIGNS: Temperature is 98.8, pulse is 86, blood pressure 144/72, pulse oximetry 97, O2 sat 2 li ters nasal cannula. GENERAL: The patient is alert, oriented. Regular respiration, right foot with gangrenous tissue to hallux. Extremity feels warm at the knee. LABORATORIES: WBC 6.8, hemoglobin 8.8, hematocrit 27.2, platelets 373. Sodium 137, potassium 4.4, c hloride 105, CO2 29, BUN 21, creatinine 0.79, glucose is 253. Cultures: Staph aureus, enterococcus species. ASSESSMENT: 1. Right foot gangrene. 2. Right foot osteomyelitis. 3. Peripheral arterial disease status post angioplasty. 4. Diabetes type 2. PLAN: Patient to continue topical antimicrobial precautions. The patient is being scheduled for ope n revascularization. Appreciate ID recommendations. Following bypass, will likely require amputatio n of the gangrenous toe. Dictated By: ERIN HAYWOOD DPM RB/MARIANNA Conf#: [id number] DID#: [id number] CC: IGOR SCHWAB MD;*End*
--- NOTE | 2019-02-28 14:19 | PN ---
Date/Time of Note Date/Time of Note DATE: 02/28/19 TIME: 14:18 Objective Vitals Vital Signs Date Temp Pulse Resp B/P (MAP) Pulse Ox O2 O2 Flow FiO2 Time Delivery Rate 02/28/19 75 20 96 Nasal 2.0 09:10 Cannula 02/28/19 98.8 144/72 09:01 (96) 02/26/19 28 19:51 Intake and Output 02/27/19 02/27/19 02/28/19 1515:00 23:00 07:00 IntakeIntake Total 500 ml 340 ml 200 ml BalanceBalance 500 ml 340 ml 200 ml Results Result Diagram: 02/28/19 0457 02/28/19 0457 Medications Medications Current Medications Ondansetron HCl (Zofran Inj) 4 mg Q6H PRN IV NAUSEA AND/OR VOMITING Last administered on 02/21/19 06:47; Admin Dose 4 MG; Start 02/21/19 at 01:30 Acetaminophen (Tylenol Liquid) 650 mg Q6H PRN PO PAIN LEVEL 1-3 OR FEVER Last administered on 02/24/19 08:53; Admin Dose 650 MG; Start 02/21/19 at 01:30 Acetaminophen/ Hydrocodone Bitart ([place] (5/325)) 1 tab Q6H PRN PO PAIN LEVEL 4-6 Last administered on 02/28/19 04:39; Admin Dose 1 TAB; Start 02/21/19 at 01:30 Piperacillin Sod/ Tazobactam Sod 100 ml @ 200 mls/hr Q6 IVPB Last administered on 02/28/19 12:16; Admin Dose 200 MLS/HR; Start 02/21/19 at 06:00 Morphine Sulfate (morphine) 4 mg Q4H PRN IV SEVERE PAIN LEVEL 7-10 Last administered on 02/26/19 11:42; Admin Dose 4 MG; Start 02/21/19 at 05:30 Atorvastatin Calcium (Lipitor) 40 mg QHS PO Last administered on 02/27/19 20:57; Admin Dose 40 MG; Start 02/21/19 at 21:00 Carvedilol (Coreg) 3.125 mg BID PO Last administered on 02/28/19 09:38; Admin Dose 3.125 MG; Start 02/21/19 at 09:00 Ferrous Sulfate (Ferrous Sulfate (Ec)) 325 mg QAM PO Last administered on 02/28/19 09:38; Admin Dose 325 MG; Start 02/21/19 at 09:00 Montelukast Sodium (Singulair) 10 mg QHS PO Last administered on 02/27/19 20:57; Admin Dose 10 MG; Start 02/21/19 at 21:00 Miscellaneous Information 1 ea NOTE XX ; Start 02/21/19 at 06:00 Glucose (Glutose) 15 gm Q15M PRN PO DECREASED GLUCOSE; Start 02/21/19 at 06:00 Glucose (Glutose) 22.5 gm Q15M PRN PO DECREASED GLUCOSE; Start 02/21/19 at 06:00 Dextrose (D50w Syringe) 25 ml Q15M PRN IV DECREASED GLUCOSE; Start 02/21/19 at 06:00 Dextrose (D50w Syringe) 50 ml Q15M PRN IV DECREASED GLUCOSE; Start 02/21/19 at 06:00 Glucagon (Glucagen) 1 mg Q15M PRN IM DECREASED GLUCOSE; Start 02/21/19 at 06:00 Glucose (Glutose) 15 gm Q15M PRN BUCCAL DECREASED GLUCOSE; Start 02/21/19 at 06:00 Amlodipine Besylate (Norvasc) 5 mg DAILY PO Last administered on 02/28/19 09:38; Admin Dose 5 MG; Start 02/22/19 at 09:00 Sodium Hypochlorite (Dakins Diluted ()) 1 applic DAILY TP Last administered on 02/23/19 18:00; Admin Dose 1 APPLIC; Start 02/22/19 at 09:00 Aspirin (Aspirin) 81 mg DAILY PO Last administered on 02/28/19 09:38; Admin Dose 81 MG; Start 02/22/19 at 14:30 Guaifenesin (Robitussin Liquid Cup) 200 mg Q4H PRN PO COUGH Last administered on 02/27/19 06:26; Admin Dose 200 MG; Start 02/24/19 at 00:30 Heparin Sodium (Porcine) (Heparin (5000 Units/1ml)) 5,000 unit BID SC Last administered on 02/28/19 09:40; Admin Dose 5,000 UNIT; Start 02/24/19 at 21:00 Levothyroxine Sodium (Synthroid) 150 mcg BEFORE BREAKFAST PO Last administered on 02/28/19 06:01; Admin Dose 150 MCG; Start 02/25/19 at 07:00 Polyethylene Glycol (Miralax) 17 gm DAILY PRN PO CONSTIPATION Last administered on 02/26/19 21:05; Admin Dose 17 GM; Start 02/25/19 at 10:00 Senna/Docusate Sodium (Senokot-S) 1 tab BID PRN PO constipation; Start 02/25/19 at 10:00 Bisacodyl (Dulcolax Supp) 10 mg DAILY PRN OR CONSTIPATION; Start 02/25/19 at 10:00 Albuterol/ Ipratropium (Duoneb) 3 ml Q6HWA RESP THERAPY HHN Last administered on 02/28/19 08:59; Admin Dose 3 ML; Start 02/26/19 at 20:00 Albuterol/ Ipratropium (Duoneb) 3 ml Q2H RESP THERAPY PRN HHN shortness of breath Last administered on 02/26/19 16:13; Admin Dose 3 ML; Start 02/26/19 at 15:00 Budesonide (Pulmicort (Neb)) 0.5 mg BID RESP THERAPY HHN Last administered on 02/28/19 09:09; Admin Dose 0.5 MG; Start 02/26/19 at 20:00 Famotidine (Pepcid) 20 mg DAILY PO Last administered on 02/28/19 09:38; Admin Dose 20 MG; Start 02/27/19 at 09:00 Insulin Aspart (Novolog Insulin Pen) 5 unit WITH MEALS SC Last administered on 02/28/19 12:15; Admin Dose 5 UNIT; Start 02/28/19 at 07:35 Insulin Glargine (Lantus) 15 units DAILY@2000 SC Last administered on 02/27/19 22:12; Admin Dose 15 UNITS; Start 02/27/19 at 22:00 Diagnostic Test (Pha) (Accu-Chek) 1 ea 02 XX ; Start 02/28/19 at 02:00 Insulin Aspart (Novolog Insulin Pen) NOVOLOG *MODERATE* ALGORITHM WITH MEALS BEDTIME SC Last administered on 02/28/19 08:22; Admin Dose 6 UNIT; Start at 21:30 VTE Prophylaxis Risk score (from Nsg)>0 risk: 3 SCD applied (from Nsg): Yes Lines/Catheters IV Catheter Type: Goodman in Place: No Assessment/Plan Hospital Course Subjective Patient doing well, minimal toe pain, no resp issues Objective Physical exam General: Patient is laying in bed and answers questions appropriately Mentation: Patient is alert and oriented 4, Head: Normocephalic atraumatic Eyes: EOMI, pupils reactive to light Neck: Supple, nontender, midline Respiratory: Very mild wheezing to auscultation bilaterally Cardiovascular: regular rate, no obvious murmurs Gastrointestinal: non-tender to palpation, bowel sounds heard. Neurological: Moves all extremities spontaneously Skin: Surgical site, bandage, CDI Assessment/Plan 1. 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 - ID consultation appreciated and okay for PO antibiotics upon discharge. Continue Zosyn for now - Arterial imaging studies noted and will need fem/pop bypass, however vascular having difficulty finding time in his schedule and OR time Pulmonary edema with bilateral wheezing, worse on right side shortness of breath, resolving -DuoNeb, budesonide nebulizer -bnp elevated -We will start low-dose Lasix oral while in house, unlikely need to be discharged, possible pneumonia causing increased fluid -Chest x-ray showing improving edema, signs of pneumonia still present -Monitor closely 2. Poorly controlled diabetes mellitus - A1c noted - Will continue home Lantus and adjust as needed - DM education consultation appreciated 3. h/o CAD s/p PCI - continue home medications - Cardiology consultation appreciated. continue on aspirin 4. HTN - continue home medications with holding parameters 5. hypothyroidism - TSH noted and will increase levothyroxine dose - will need outpatient repeat thyroid studies in 4-6 weeks 6. Hyperlipidemia - continue statin 7. PAD - Vascular consultation appreciated and plans for fem pop given angiogram findings when able - aspirin on board 8. Disposition -Vascular surgery attempted to find OR time however may not be able to get it done this week, continue IV antibiotics for now BRADLEY LEONG Feb 28, 2019 14:19
[2019-02-28] MEDS ORDERED: FUROSEMIDE 20 MG TAB PO SCH (14:30)
--- NOTE | 2019-02-28 16:46 | CONS ---
Assessment/Plan Assessment/Plan Hospital Course (Demo Recall) No acute changes, awake, looks comfortable, no fevers Microbiology right foot wound culture grew REAL and enterococcus species Antimicrobials: Zosyn Physical examination: Well-nourished well-developed fragile elderly woman who is alert in no distress. Head atraumatic normocephalic sclera nonicteric neck is supple chest rise symmetrical breath sounds clear heart: S1-S2. Abdomen soft bowel sounds present. Extremities without cyanosis, right foot dressing intact Assessment: 1. Right foot cellulitis with toe gangrene 2. Peripheral arterial disease status post abdominal aortogram with right popliteal artery angioplasty 02/23/19 3. Diabetes Plan: Patient remains stable, continue wound management per podiatry, pending bypass surgery Consultation Date/Type/Reason Admit Date/Time February 20, 2019 at 23:53 Initial Consult Date Type of Consult id Date/Time of Note DATE: 02/28/19 TIME: 16:45 Exam/Review of Systems Exam Vitals Vital Signs Date Temp Pulse Resp B/P (MAP) Pulse Ox O2 O2 Flow FiO2 Time Delivery Rate 02/28/19 2.0 15:10 02/28/19 77 19 97 Nasal 15:04 Cannula 02/28/19 98.8 112/73 14:00 (86) 02/26/19 28 19:51 Intake and Output 02/27/19 02/27/19 02/28/19 1515:00 23:00 07:00 IntakeIntake Total 500 ml 340 ml 200 ml BalanceBalance 500 ml 340 ml 200 ml Results Result Diagram: 02/28/19 0457 02/28/19 0457 Results 24hrs Laboratory Tests Test 02/27/19 17:29 02/27/19 20:50 02/27/19 22:09 02/28/19 02:42 Bedside Glucose 297 H 339 H 313 H 302 H Test 02/28/19 04:57 02/28/19 08:20 02/28/19 12:13 White Blood Count 6.8 Red Blood Count 3.02 L Hemoglobin 8.8 L Hematocrit 27.2 L Mean Corpuscular Volume 90.1 Mean Corpuscular 29.1 Hemoglobin Mean Corpuscular 32.4 Hemoglobin Concent Red Cell Distribution 13.3 Width Platelet Count 373 Mean Platelet Volume 9.8 Immature Granulocytes % 0.900 H Neutrophils % 74.3 Lymphocytes % 15.1 Monocytes % 9.6 Eosinophils % 0.0 Basophils % 0.1 Nucleated Red Blood 0.0 Cells % Immature Granulocytes # 0.060 H Neutrophils # 5.0 Lymphocytes # 1.0 Monocytes # 0.7 Eosinophils # 0.0 Basophils # 0.0 Nucleated Red Blood 0.0 Cells # Sodium Level 137 Potassium Level 4.4 Chloride Level 105 Carbon Dioxide Level 29 Anion Gap 3 L Blood Urea Nitrogen 21 H Creatinine 0.79 Glucose Level 278 H Calcium Level 8.1 L Phosphorus Level 2.7 # Magnesium Level 2.2 B-Type Natriuretic 3710 H Peptide Albumin 2.5 L Bedside Glucose 253 H 128 Medications Medication Current Medications Ondansetron HCl (Zofran Inj) 4 mg Q6H PRN IV NAUSEA AND/OR VOMITING Last administered on 02/21/19 06:47; Admin Dose 4 MG; Start 02/21/19 at 01:30 Acetaminophen (Tylenol Liquid) 650 mg Q6H PRN PO PAIN LEVEL 1-3 OR FEVER Last administered on 02/24/19 08:53; Admin Dose 650 MG; Start 02/21/19 at 01:30 Acetaminophen/ Hydrocodone Bitart ([place] (5/325)) 1 tab Q6H PRN PO PAIN LEVEL 4-6 Last administered on 02/28/19 04:39; Admin Dose 1 TAB; Start 02/21/19 at 01:30 Piperacillin Sod/ Tazobactam Sod 100 ml @ 200 mls/hr Q6 IVPB Last administered on 02/28/19 12:16; Admin Dose 200 MLS/HR; Start 02/21/19 at 06:00 Morphine Sulfate (morphine) 4 mg Q4H PRN IV SEVERE PAIN LEVEL 7-10 Last administered on 02/26/19 11:42; Admin Dose 4 MG; Start 02/21/19 at 05:30 Atorvastatin Calcium (Lipitor) 40 mg QHS PO Last administered on 02/27/19 20:57; Admin Dose 40 MG; Start 02/21/19 at 21:00 Carvedilol (Coreg) 3.125 mg BID PO Last administered on 02/28/19 09:38; Admin Dose 3.125 MG; Start 02/21/19 at 09:00 Ferrous Sulfate (Ferrous Sulfate (Ec)) 325 mg QAM PO Last administered on 02/28/19 09:38; Admin Dose 325 MG; Start 02/21/19 at 09:00 Montelukast Sodium (Singulair) 10 mg QHS PO Last administered on 02/27/19 20:57; Admin Dose 10 MG; Start 02/21/19 at 21:00 Miscellaneous Information 1 ea NOTE XX ; Start 02/21/19 at 06:00 Glucose (Glutose) 15 gm Q15M PRN PO DECREASED GLUCOSE; Start 02/21/19 at 06:00 Glucose (Glutose) 22.5 gm Q15M PRN PO DECREASED GLUCOSE; Start 02/21/19 at 06:00 Dextrose (D50w Syringe) 25 ml Q15M PRN IV DECREASED GLUCOSE; Start 02/21/19 at 06:00 Dextrose (D50w Syringe) 50 ml Q15M PRN IV DECREASED GLUCOSE; Start 02/21/19 at 06:00 Glucagon (Glucagen) 1 mg Q15M PRN IM DECREASED GLUCOSE; Start 02/21/19 at 06:00 Glucose (Glutose) 15 gm Q15M PRN BUCCAL DECREASED GLUCOSE; Start 02/21/19 at 06:00 Amlodipine Besylate (Norvasc) 5 mg DAILY PO Last administered on 02/28/19 09: 38; Admin Dose 5 MG; Start 02/22/19 at 09:00 Sodium Hypochlorite (Dakins Diluted ()) 1 applic DAILY TP Last administered on 02/23/19 18:00; Admin Dose 1 APPLIC; Start 02/22/19 at 09:00 Aspirin (Aspirin) 81 mg DAILY PO Last administered on 02/28/19 09:38; Admin Dose 81 MG; Start 02/22/19 at 14:30 Guaifenesin (Robitussin Liquid Cup) 200 mg Q4H PRN PO COUGH Last administered on 02/27/19 06:26; Admin Dose 200 MG; Start 02/24/19 at 00:30 Heparin Sodium (Porcine) (Heparin (5000 Units/1ml)) 5,000 unit BID SC Last administered on 02/28/19 09:40; Admin Dose 5,000 UNIT; Start 02/24/19 at 21:00 Levothyroxine Sodium (Synthroid) 150 mcg BEFORE BREAKFAST PO Last administered on 02/28/19 06:01; Admin Dose 150 MCG; Start 02/25/19 at 07:00 Polyethylene Glycol (Miralax) 17 gm DAILY PRN PO CONSTIPATION Last administered on 02/26/19 21:05; Admin Dose 17 GM; Start 02/25/19 at 10:00 Senna/Docusate Sodium (Senokot-S) 1 tab BID PRN PO constipation; Start 02/25/19 at 10:00 Bisacodyl (Dulcolax Supp) 10 mg DAILY PRN [place] CONSTIPATION; Start 02/25/19 at 10:00 Albuterol/ Ipratropium (Duoneb) 3 ml Q6HWA RESP THERAPY HHN Last administered on 02/28/19 14:00; Admin Dose 3 ML; Start 02/26/19 at 20:00 Albuterol/ Ipratropium (Duoneb) 3 ml Q2H RESP THERAPY PRN HHN shortness of breath Last administered on 02/26/19 16:13; Admin Dose 3 ML; Start 02/26/19 at 15:00 Budesonide (Pulmicort (Neb)) 0.5 mg BID RESP THERAPY HHN Last administered on 02/28/19 09:09; Admin Dose 0.5 MG; Start 02/26/19 at 20:00 Famotidine (Pepcid) 20 mg DAILY PO Last administered on 02/28/19 09:38; Admin Dose 20 MG; Start 02/27/19 at 09:00 Insulin Aspart (Novolog Insulin Pen) 5 unit WITH MEALS SC Last administered on 02/28/19 12:15; Admin Dose 5 UNIT; Start 02/28/19 at 07:35 Insulin Glargine (Lantus) 15 units DAILY@2000 SC Last administered on 02/27/19 22:12; Admin Dose 15 UNITS; Start 02/27/19 at 22:00 Diagnostic Test (Pha) (Accu-Chek) 1 ea 02 XX ; Start 02/28/19 at 02:00 Insulin Aspart (Novolog Insulin Pen) NOVOLOG *MODERATE* ALGORITHM WITH MEALS BEDTIME SC Last administered on 02/28/19 08:22; Admin Dose 6 UNIT; Start at 21:30 Furosemide (Lasix) 20 mg DAILY PO Last administered on 02/28/19 15:01; Admin Dose 20 MG; Start 02/28/19 at 14:30 TORI GARCIA NP Feb 28, 2019 16:46
[2019-02-28 20:00] VITALS: BP 125/61; PULSE 60; RESP 18
[2019-02-28] MEDS: MONTELUKAST 10 MG TAB PO SCH (20:51)
[2019-02-28] MEDS: ATORVASTATIN 40 MG TAB PO SCH (20:51)
[2019-02-28] MEDS: INSULIN GLARGINE [LANTus] (100 UNITS/ML) SYG SC SCH (20:53)
[2019-03-01] MEDS: HYDROCODONE/APAP (5/325) TAB PO PRN (00:01)
[2019-03-01] MEDS: GUAIFENESIN 20 MG/ML 5ML CUP PO PRN ×2 (00:14→07:08)
[2019-03-01 02:00] VITALS: BP 121/58; PULSE 66; RESP 20
[2019-03-01] MEDS: LEVOTHYROXINE 150 MCG TAB PO SCH (06:02)
[2019-03-01] MEDS: PIPER-TAZO 3.375 GM IV (PMX) 100 ML IVPB SCH ×3 (06:02→21:14)
[2019-03-01] MEDS: ALBUTEROL/IPRATROPIUM (NEB) 3 ML AMP HHN SCH ×3 (07:40→20:42)
[2019-03-01 08:00] VITALS: BP 145/65; PULSE 76; RESP 18
[2019-03-01] MEDS: INSULIN ASPART [NOVOLOG] 3 ML PEN SC SCH ×7 (08:00→20:59)
[2019-03-01] MEDS: DAKINS 0.0125%(1/40) 473 ML SOLUTION TP SCH (09:00)
[2019-03-01] MEDS: HEPARIN 5,000 UNIT/1 ML VIAL SC SCH ×2 (09:30→21:00)
[2019-03-01] MEDS: FERROUS SULFATE (EC) 325 MG TAB PO SCH (09:30)
[2019-03-01] MEDS ORDERED: HYDROCHLOROTHIAZIDE 12.5 MG CAP PO SCH (09:30)
[2019-03-01] MEDS: ASPIRIN 81 MG TAB PO SCH (09:30)
[2019-03-01] MEDS: FAMOTIDINE 20 MG TAB PO SCH (09:30)
[2019-03-01] MEDS ORDERED: VANCOMYCIN IV PER PHARMACY XX SCH (10:30)
[2019-03-01] MEDS: AZITHROMYCIN 500MG/NS (PMX) 250 ML IVPB SCH (12:16)
[2019-03-01] MEDS: METHYLPREDNISOLONE 40 MG INJ IV SCH ×2 (12:36→21:03)
[2019-03-01] MEDS: BUDESONIDE (NEB) 0.5MG/2ML AMP HHN SCH ×2 (13:34→20:42)
[2019-03-01 14:00] VITALS: BP 136/72; PULSE 84; RESP 20
[2019-03-01] MEDS ORDERED: VANCOMYCIN HCL 1.75 GM in SOD CHLORIDE 0.9% 500 ML IVPB ONE (14:00)
--- NOTE | 2019-03-01 14:55 | CONS ---
Assessment/Plan Assessment/Plan Hospital Course (Demo Recall) 1400 patient is alert sitting up in a chair looks comfortable no fevers. WBC 9.3 neutrophils 75.4 BUN 19 creatinine 1.02 Antimicrobials: Vanco, Zithromax, Zosyn Microbiology right foot wound culture grew REAL and enterococcus species Physical examination: Obese well-developed fragile elderly woman who is alert in no distress. Head atraumatic normocephalic sclera nonicteric neck is supple chest rise symmetrical breath sounds clear heart: S1-S2. Abdomen soft bowel sounds present. Extremities without cyanosis, right foot dressing intact Assessment: 1. Right foot cellulitis with toe gangrene 2. Peripheral arterial disease status post abdominal aortogram with right popliteal artery angioplasty 02/23/19 3. Diabetes 4. PNA vs CHF Plan: Patient remains stable, continue abx, wound management per podiatry, f/u cxr consider diuresis Consultation Date/Type/Reason Admit Date/Time February 20, 2019 at 23:53 Initial Consult Date Type of Consult id Date/Time of Note DATE: 03/01/19 TIME: 14:53 Exam/Review of Systems Exam Vitals Vital Signs Date Temp Pulse Resp B/P (MAP) Pulse Ox O2 O2 Flow FiO2 Time Delivery Rate 03/01/19 59 18 97 Nasal 2.0 13:23 Cannula 03/01/19 98.8 145/65 08:00 (91) 02/26/19 28 19:51 Intake and Output 02/28/19 02/28/19 03/01/19 1515:00 23:00 07:00 IntakeIntake Total 550 ml 550 ml 440 ml OutputOutput Total 500 ml 1600 ml BalanceBalance 550 ml 50 ml -1160 ml Results Result Diagram: 03/01/19 0629 03/01/19 0629 Results 24hrs Laboratory Tests Test 02/28/19 17:33 02/28/19 20:48 03/01/19 06:29 03/01/19 08:01 Bedside Glucose 105 147 118 White Blood Count 9.3 # Red Blood Count 3.39 L Hemoglobin 9.7 L Hematocrit 31.0 L Mean Corpuscular Volume 91.4 Mean Corpuscular 28.6 L Hemoglobin Mean Corpuscular 31.3 L Hemoglobin Concent Red Cell Distribution 13.6 Width Platelet Count 417 H Mean Platelet Volume 9.6 Immature Granulocytes % 0.900 H Neutrophils % 75.4 Lymphocytes % 16.4 Monocytes % 5.7 Eosinophils % 1.2 Basophils % 0.4 Nucleated Red Blood 0.0 Cells % Immature Granulocytes # 0.080 H Neutrophils # 7.0 Lymphocytes # 1.5 Monocytes # 0.5 Eosinophils # 0.1 Basophils # 0.0 Nucleated Red Blood 0.0 Cells # Sodium Level 143 Potassium Level 3.8 Chloride Level 103 Carbon Dioxide Level 36 H Anion Gap 4 L Blood Urea Nitrogen 19 Creatinine 1.02 H Est Glomerular Filtrat Rate mL/min Glucose Level 110 # Calcium Level 8.5 Phosphorus Level 2.9 Magnesium Level 2.1 Test 03/01/19 12:18 Bedside Glucose 207 Medications Medication Current Medications Ondansetron HCl (Zofran Inj) 4 mg Q6H PRN IV NAUSEA AND/OR VOMITING Last administered on 02/21/19 06:47; Admin Dose 4 MG; Start 02/21/19 at 01:30 Acetaminophen (Tylenol Liquid) 650 mg Q6H PRN PO PAIN LEVEL 1-3 OR FEVER Last administered on 02/24/19 08:53; Admin Dose 650 MG; Start 02/21/19 at 01:30 Acetaminophen/ Hydrocodone Bitart ([place] (5/325)) 1 tab Q6H PRN PO PAIN LEVEL 4-6 Last administered on 03/01/19 00:01; Admin Dose 1 TAB; Start 02/21/19 at 01:30 Piperacillin Sod/ Tazobactam Sod 100 ml @ 200 mls/hr Q6 IVPB Last administered on 03/01/19 12:16; Admin Dose 200 MLS/HR; Start 02/21/19 at 06:00 Morphine Sulfate (morphine) 4 mg Q4H PRN IV SEVERE PAIN LEVEL 7-10 Last administered on 02/26/19 11:42; Admin Dose 4 MG; Start 02/21/19 at 05:30 Atorvastatin Calcium (Lipitor) 40 mg QHS PO Last administered on 02/28/19 20:5 1; Admin Dose 40 MG; Start 02/21/19 at 21:00 Carvedilol (Coreg) 3.125 mg BID PO Last administered on 03/01/19 09:29; Admin Dose 3.125 MG; Start 02/21/19 at 09:00 Ferrous Sulfate (Ferrous Sulfate (Ec)) 325 mg QAM PO Last administered on 03/01/19 09:30; Admin Dose 325 MG; Start 02/21/19 at 09:00 Montelukast Sodium (Singulair) 10 mg QHS PO Last administered on 02/28/19 20:51; Admin Dose 10 MG; Start 02/21/19 at 21:00 Miscellaneous Information 1 ea NOTE XX ; Start 02/21/19 at 06:00 Glucose (Glutose) 15 gm Q15M PRN PO DECREASED GLUCOSE; Start 02/21/19 at 06:00 Glucose (Glutose) 22.5 gm Q15M PRN PO DECREASED GLUCOSE; Start 02/21/19 at 06:00 Dextrose (D50w Syringe) 25 ml Q15M PRN IV DECREASED GLUCOSE; Start 02/21/19 at 06:00 Dextrose (D50w Syringe) 50 ml Q15M PRN IV DECREASED GLUCOSE; Start 02/21/19 at 06:00 Glucagon (Glucagen) 1 mg Q15M PRN IM DECREASED GLUCOSE; Start 02/21/19 at 06:00 Glucose (Glutose) 15 gm Q15M PRN BUCCAL DECREASED GLUCOSE; Start 02/21/19 at 06:00 Sodium Hypochlorite (Dakins Diluted (40)) 1 applic DAILY TP Last administered on 02/23/19 18:00; Admin Dose 1 APPLIC; Start 02/22/19 at 09:00 Aspirin (Aspirin) 81 mg DAILY PO Last administered on 03/01/19 09:30; Admin Dose 81 MG; Start 02/22/19 at 14:30 Heparin Sodium (Porcine) (Heparin (5000 Units/1ml)) 5,000 unit BID SC Last administered on 03/01/19 09:30; Admin Dose 5,000 UNIT; Start 02/24/19 at 21:00 Levothyroxine Sodium (Synthroid) 150 mcg BEFORE BREAKFAST PO Last administered on 03/01/19 06:02; Admin Dose 150 MCG; Start 02/25/19 at 07:00 Polyethylene Glycol (Miralax) 17 gm DAILY PRN PO CONSTIPATION Last administered on 02/26/19 21:05; Admin Dose 17 GM; Start 02/25/19 at 10:00 Senna/Docusate Sodium (Senokot-S) 1 tab BID PRN PO constipation; Start 02/25/19 at 10:00 Bisacodyl (Dulcolax Supp) 10 mg DAILY PRN [place] CONSTIPATION; Start 02/25/19 at 10:00 Albuterol/ Ipratropium (Duoneb) 3 ml Q6HWA RESP THERAPY HHN Last administered on 03/01/19 13:23; Admin Dose 3 ML; Start 02/26/19 at 20:00 Albuterol/ Ipratropium (Duoneb) 3 ml Q2H RESP THERAPY PRN HHN shortness of breath Last administered on 02/26/19 16:13; Admin Dose 3 ML; Start 02/26/19 at 15:00 Budesonide (Pulmicort (Neb)) 0.5 mg BID RESP THERAPY HHN Last administered on 03/01/19 13:34; Admin Dose 0.5 MG; Start 02/26/19 at 20:00 Famotidine (Pepcid) 20 mg DAILY PO Last administered on 03/01/19 09:30; Admin Dose 20 MG; Start 02/27/19 at 09:00 Insulin Aspart (Novolog Insulin Pen) 5 unit WITH MEALS SC Last administered on 03/01/19 12:19; Admin Dose 5 UNIT; Start 02/28/19 at 07:35 Insulin Glargine (Lantus) 15 units DAILY@2000 SC Last administered on 02/28/19 20:53; Admin Dose 15 UNITS; Start 02/27/19 at 22:00 Diagnostic Test (Pha) (Accu-Chek) 1 ea 02 XX ; Start 02/28/19 at 02:00 Insulin Aspart (Novolog Insulin Pen) NOVOLOG *MODERATE* ALGORITHM WITH MEALS BEDTIME SC Last administered on 03/01/19 12:20; Admin Dose 4 UNIT; Start at 21:30 Hydrochlorothiazide (Hydrochlorothiazide) 12.5 mg DAILY PO Last administered on 03/01/19 09:34; Admin Dose 12.5 MG; Start 03/01/19 at 09:30 Methylprednisolone Sodium Succinate (Solu-Medrol) 40 mg Q12 IV Last administered on 03/01/19 12:36; Admin Dose 40 MG; Start 03/01/19 at 12:00 Guaifenesin/ Codeine Phosphate (Robitussin Ac Liquid Cup) 5 ml Q4H PRN PO cough; Start 03/01/19 at 10:30 Vancomycin HCl (Vanco Iv Per Pharmacy) VANCOMYCIN PER PHARMACY PER PROTOCOL XX ; Start 03/01/19 at 10:30 Azithromycin 250 ml @ 250 mls/hr Q24H IVPB Last administered on 03/01/19at 12:16; Admin Dose 250 MLS/HR; Start 03/01/19 at 12:00 Vancomycin HCl 1.75 gm/Sodium Chloride 500 ml @ 125 mls/hr ONCE ONCE IVPB ; Start 03/01/19 at 14:00; Stop 03/01/19 at 17:59 Vancomycin HCl 1.25 gm/Sodium Chloride 250 ml @ 83.333 mls/ hr Q24H IVPB ; Start 03/02/19 at 14:00 TORI GARCIA NP Mar 01, 2019 14:55
--- NOTE | 2019-03-01 15:51 | PN ---
Date/Time of Note Date/Time of Note DATE: 03/01/19 TIME: 15:49 Objective Vitals Vital Signs Date Temp Pulse Resp B/P (MAP) Pulse Ox O2 O2 Flow FiO2 Time Delivery Rate 03/01/19 59 18 97 Nasal 2.0 13:23 Cannula 03/01/19 98.8 145/65 08:00 (91) 02/26/19 28 19:51 Intake and Output 02/28/19 02/28/19 03/01/19 1515:00 23:00 07:00 IntakeIntake Total 550 ml 550 ml 440 ml OutputOutput Total 500 ml 1600 ml BalanceBalance 550 ml 50 ml -1160 ml Results Result Diagram: 03/01/1962803/01/19628 Medications Medications Current Medications Ondansetron HCl (Zofran Inj) 4 mg Q6H PRN IV NAUSEA AND/OR VOMITING Last administered on 02/21/19 06:47; Admin Dose 4 MG; Start 02/21/19 at 01:30 Acetaminophen (Tylenol Liquid) 650 mg Q6H PRN PO PAIN LEVEL 1-3 OR FEVER Last administered on 02/24/19 08:53; Admin Dose 650 MG; Start 02/21/19 at 01:30 Acetaminophen/ Hydrocodone Bitart ([place] (5/325)) 1 tab Q6H PRN PO PAIN LEVEL 4-6 Last administered on 03/01/19 00:01; Admin Dose 1 TAB; Start 02/21/19 at 01:30 Piperacillin Sod/ Tazobactam Sod 100 ml @ 200 mls/hr Q6 IVPB Last administered on 03/01/19 12:16; Admin Dose 200 MLS/HR; Start 02/21/19 at 06:00 Morphine Sulfate (morphine) 4 mg Q4H PRN IV SEVERE PAIN LEVEL 7-10 Last administered on 02/26/19 11:42; Admin Dose 4 MG; Start 02/21/19 at 05:30 Atorvastatin Calcium (Lipitor) 40 mg QHS PO Last administered on 02/28/19 20:51; Admin Dose 40 MG; Start 02/21/19 at 21:00 Carvedilol (Coreg) 3.125 mg BID PO Last administered on 03/01/19 09:29; Admin Dose 3.125 MG; Start 02/21/19 at 09:00 Ferrous Sulfate (Ferrous Sulfate (Ec)) 325 mg QAM PO Last administered on 03/01/19 09:30; Admin Dose 325 MG; Start 02/21/19 at 09:00 Montelukast Sodium (Singulair) 10 mg QHS PO Last administered on 02/28/19at 20:51; Admin Dose 10 MG; Start 02/21/19 at 21:00 Miscellaneous Information 1 ea NOTE XX ; Start 02/21/19 at 06:00 Glucose (Glutose) 15 gm Q15M PRN PO DECREASED GLUCOSE; Start 02/21/19 at 06:00 Glucose (Glutose) 22.5 gm Q15M PRN PO DECREASED GLUCOSE; Start 02/21/19 at 06:00 Dextrose (D50w Syringe) 25 ml Q15M PRN IV DECREASED GLUCOSE; Start 02/21/19 at 06:00 Dextrose (D50w Syringe) 50 ml Q15M PRN IV DECREASED GLUCOSE; Start 02/21/19 at 06:00 Glucagon (Glucagen) 1 mg Q15M PRN IM DECREASED GLUCOSE; Start 02/21/19 at 06:00 Glucose (Glutose) 15 gm Q15M PRN BUCCAL DECREASED GLUCOSE; Start 02/21/19 at 06:00 Sodium Hypochlorite (Dakins Diluted (40)) 1 applic DAILY TP Last administered on 02/23/19at 18:00; Admin Dose 1 APPLIC; Start 02/22/19 at 09:00 Aspirin (Aspirin) 81 mg DAILY PO Last administered on 03/01/19 09:30; Admin Dose 81 MG; Start 02/22/19 at 14:30 Heparin Sodium (Porcine) (Heparin (5000 Units/1ml)) 5,000 unit BID SC Last administered on 03/01/19 09:30; Admin Dose 5,000 UNIT; Start 02/24/19 at 21:00 Levothyroxine Sodium (Synthroid) 150 mcg BEFORE BREAKFAST PO Last administered on 03/01/19 06:02; Admin Dose 150 MCG; Start 02/25/19 at 07:00 Polyethylene Glycol (Miralax) 17 gm DAILY PRN PO CONSTIPATION Last administered on 02/26/19 21:05; Admin Dose 17 GM; Start 02/25/19 at 10:00 Senna/Docusate Sodium (Senokot-S) 1 tab BID PRN PO constipation; Start 02/25/19 at 10:00 Bisacodyl (Dulcolax Supp) [address] CONSTIPATION; Start 02/25/19 at 10:00 Albuterol/ Ipratropium (Duoneb) 3 ml Q6HWA RESP THERAPY HHN Last administered on 03/01/19 13:23; Admin Dose 3 ML; Start 02/26/19 at 20:00 Albuterol/ Ipratropium (Duoneb) 3 ml Q2H RESP THERAPY PRN HHN shortness of breath Last administered on 02/26/19 16:13; Admin Dose 3 ML; Start 02/26/19 at 15:00 Budesonide (Pulmicort (Neb)) 0.5 mg BID RESP THERAPY HHN Last administered on 03/01/19 13:34; Admin Dose 0.5 MG; Start 02/26/19 at 20:00 Famotidine (Pepcid) 20 mg DAILY PO Last administered on 03/01/19 09:30; Admin Dose 20 MG; Start 02/27/19 at 09:00 Insulin Aspart (Novolog Insulin Pen) 5 unit WITH MEALS SC Last administered on 03/01/19 12:19; Admin Dose 5 UNIT; Start 02/28/19 at 07:35 Insulin Glargine (Lantus) 15 units DAILY@2000 SC Last administered on 02/28/19 20:53; Admin Dose 15 UNITS; Start 02/27/19 at 22:00 Diagnostic Test (Pha) (Accu-Chek) 1 ea 02 XX ; Start 02/28/19 at 02:00 Insulin Aspart (Novolog Insulin Pen) NOVOLOG *MODERATE* ALGORITHM WITH MEALS BEDTIME SC Last administered on 03/01/19 12:20; Admin Dose 4 UNIT; Start 02/27/19 at 21:30 Hydrochlorothiazide (Hydrochlorothiazide) 12.5 mg DAILY PO Last administered on 03/01/19 09:34; Admin Dose 12.5 MG; Start 03/01/19 at 09:30 Methylprednisolone Sodium Succinate (Solu-Medrol) 40 mg Q12 IV Last administer ed on 03/01/19 12:36; Admin Dose 40 MG; Start 03/01/19 at 12:00 Guaifenesin/ Codeine Phosphate (Robitussin Ac Liquid Cup) 5 ml Q4H PRN PO cough; Start 03/01/19 at 10:30 Vancomycin HCl (Vanco Iv Per Pharmacy) VANCOMYCIN PER PHARMACY PER PROTOCOL XX ; Start 03/01/19 at 10:30 Azithromycin 250 ml @ 250 mls/hr Q24H IVPB Last administered on 03/01/19at 12:16; Admin Dose 250 MLS/HR; Start 03/01/19 at 12:00 Vancomycin HCl 1.75 gm/Sodium Chloride 500 ml @ 125 mls/hr ONCE ONCE IVPB ; Start 03/01/19 at 14:00; Stop 03/01/19 at 17:59 Vancomycin HCl 1.25 gm/Sodium Chloride 250 ml @ 83.333 mls/ hr Q24H IVPB ; Start 03/02/19 at 14:00 VTE Prophylaxis Risk score (from [facility] [place])>0 risk: 4 SCD applied (from [facility] [place] [place]): Yes Lines/Catheters IV Catheter Type: Goodman in Place: No Assessment/Plan Hospital Course Subjective Patient having worsening cough today, no change in shortness of breath however t he cough is significantly bothering her, began last night Objective Physical exam General: Patient is laying in bed and answers questions appropriately Mentation: Patient is alert and oriented 4, Head: Normocephalic atraumatic Eyes: EOMI, pupils reactive to light Neck: Supple, nontender, midline Respiratory: Very mild wheezing to auscultation bilaterally Cardiovascular: regular rate, no obvious murmurs Gastrointestinal: non-tender to palpation, bowel sounds heard. Neurological: Moves all extremities spontaneously Skin: Surgical site, bandage, CDI Assessment/Plan 1. 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 - ID consultation appreciated and okay for PO antibiotics upon discharge. Continue Zosyn for now - Arterial imaging studies noted and will need fem/pop bypass, however vascular having difficulty finding time in his schedule and OR time Pulmonary edema with bilateral wheezing, worse on right side shortness of breath, -DuoNeb, budesonide nebulizer -bnp elevated -Lasix held, creatinine has slight increase, will start hydrochlorothiazide and stop amlodipine so that it can help with her diuresis and blood pressure at the same time -Chest x-ray showing improving edema, signs of pneumonia still present -Due to worsening cough, and respiratory status not improving significantly, will order CT of the chest -Patient may have undiagnosed COPD as patient [place] wood [place], will start IV steroids for now given her respiratory status not improving significantly Possible pneumonia -Possible right-sided pneumonia -Infectious disease on board, suggested increasing antibiotic with her azithromycin and vancomycin and addition to Zosyn for now given unresolved cough and issues 2. Poorly controlled diabetes mellitus - A1c noted - Will continue home Lantus and adjust as needed - DM education consultation appreciated 3. h/o CAD s/p PCI - continue home medications - Cardiology consultation appreciated. continue on aspirin 4. HTN - continue home medications with holding parameters 5. hypothyroidism - TSH noted and will increase levothyroxine dose - will need outpatient repeat thyroid studies in 4-6 weeks 6. Hyperlipidemia - continue statin 7. PAD - Vascular consultation appreciated and plans for fem pop given angiogram findings when able - aspirin on board 8. Disposition -Vascular surgery attempted to find OR time however may not be able to get it done this week, continue IV antibiotics for now BRADLEY LEONG Mar 01, 2019 15:51
[2019-03-01 20:00] VITALS: BP 148/67; PULSE 61; RESP 17
[2019-03-01] MEDS: INSULIN GLARGINE [LANTus] (100 UNITS/ML) SYG SC SCH (20:58)
[2019-03-01] MEDS: ATORVASTATIN 40 MG TAB PO SCH (21:02)
[2019-03-01] MEDS: MONTELUKAST 10 MG TAB PO SCH (21:02)
[2019-03-02] MEDS: PIPER-TAZO 3.375 GM IV (PMX) 100 ML IVPB SCH ×4 (00:13→17:57)
[2019-03-02 02:00] VITALS: BP 153/72; PULSE 55; RESP 18
[2019-03-02] MEDS: ACCU-CHEK XX SCH (02:23)
[2019-03-02] MEDS: LEVOTHYROXINE 150 MCG TAB PO SCH (04:49)
[2019-03-02 08:00] VITALS: BP 139/63; PULSE 90; RESP 20
[2019-03-02] MEDS: INSULIN ASPART [NOVOLOG] 3 ML PEN SC SCH ×6 (08:09→20:27)
[2019-03-02] MEDS: HEPARIN 5,000 UNIT/1 ML VIAL SC SCH ×2 (08:10→20:29)
[2019-03-02] MEDS: METHYLPREDNISOLONE 40 MG INJ IV SCH ×2 (08:10→20:22)
[2019-03-02] MEDS: ALBUTEROL/IPRATROPIUM (NEB) 3 ML AMP HHN SCH ×3 (08:46→21:24)
[2019-03-02] MEDS: BUDESONIDE (NEB) 0.5MG/2ML AMP HHN SCH ×3 (08:46→21:33)
[2019-03-02] MEDS: ASPIRIN 81 MG TAB PO SCH (09:28)
[2019-03-02] MEDS: FAMOTIDINE 20 MG TAB PO SCH (09:28)
[2019-03-02] MEDS: FERROUS SULFATE (EC) 325 MG TAB PO SCH (09:28)
[2019-03-02] MEDS: DAKINS 0.0125%(1/40) 473 ML SOLUTION TP SCH (09:29)
[2019-03-02] MEDS: HYDROCHLOROTHIAZIDE 25 MG TAB PO SCH (09:29)
[2019-03-02] MEDS: AZITHROMYCIN 500MG/NS (PMX) 250 ML IVPB SCH (12:12)
--- NOTE | 2019-03-02 13:02 | QN ---
Documentation Comment No c/o. R 1st toe tip has dry gangrene, no erythema or drainage - scheduled for R pop-DP bypass next Tuesday - paint toe with betadine for now - she well need toe amputation after revascularization ALVIN ENG MD Mar 02, 2019 13:02
[2019-03-02 14:00] VITALS: BP 132/62; PULSE 80; RESP 20
[2019-03-02] MEDS ORDERED: VANCOMYCIN HCL 1.25 GM in SOD CHLORIDE 0.9% 250 ML IVPB SCH (14:00)
--- NOTE | 2019-03-02 14:17 | PN ---
Date/Time of Note Date/Time of Note DATE: 03/02/19 TIME: 14:08 Objective Vitals Vital Signs Date Temp Pulse Resp B/P (MAP) Pulse Ox O2 O2 Flow FiO2 Time Delivery Rate 03/02/19 Nasal 2.0 09:52 Cannula 03/02/19 98 08:36 03/02/19 58 18 08:36 03/02/19 98.8 139/63 08:00 (88) 02/26/19 28 19:51 Intake and Output 03/01/19 03/01/19 03/02/19 1515:00 23:00 07:00 IntakeIntake Total 3950 ml 1070 ml 100 ml BalanceBalance 3950 ml 1070 ml 100 ml Results Result Diagram: 03/02/1952003/02/19520 Medications Medications Current Medications Ondansetron HCl (Zofran Inj) 4 mg Q6H PRN IV NAUSEA AND/OR VOMITING Last administered on 02/21/19 06:47; Admin Dose 4 MG; Start 02/21/19 at 01:30 Acetaminophen (Tylenol Liquid) 650 mg Q6H PRN PO PAIN LEVEL 1-3 OR FEVER Last administered on 02/24/19 08:53; Admin Dose 650 MG; Start 02/21/19 at 01:30 Acetaminophen/ Hydrocodone Bitart ([place] (5/325)) 1 tab Q6H PRN PO PAIN LEVEL 4-6 Last administered on 03/01/19 00:01; Admin Dose 1 TAB; Start 02/21/19 at 01:30 Piperacillin Sod/ Tazobactam Sod 100 ml @ 200 mls/hr Q6 IVPB Last administered on 03/02/19 11:19; Admin Dose 200 MLS/HR; Start 02/21/19 at 06:00 Morphine Sulfate (morphine) 4 mg Q4H PRN IV SEVERE PAIN LEVEL 7-10 Last administered on 02/26/19 11:42; Admin Dose 4 MG; Start 02/21/19 at 05:30 Atorvastatin Calcium (Lipitor) 40 mg QHS PO Last administered on 03/01/19 21:02; Admin Dose 40 MG; Start 02/21/19 at 21:00 Carvedilol (Coreg) 3.125 mg BID PO Last administered on 03/01/19 21:02; Admin Dose 3.125 MG; Start 02/21/19 at 09:00 Ferrous Sulfate (Ferrous Sulfate (Ec)) 325 mg QAM PO Last administered on 03/02/19 09:28; Admin Dose 325 MG; Start 02/21/19 at 09:00 Montelukast Sodium (Singulair) 10 mg QHS PO Last administered on 03/01/19 21:02; Admin Dose 10 MG; Start 02/21/19 at 21:00 Miscellaneous Information 1 ea NOTE XX ; Start 02/21/19 at 06:00 Glucose (Glutose) 15 gm Q15M PRN PO DECREASED GLUCOSE; Start 02/21/19 at 06:00 Glucose (Glutose) 22.5 gm Q15M PRN PO DECREASED GLUCOSE; Start 02/21/19 at 06:00 Dextrose (D50w Syringe) 25 ml Q15M PRN IV DECREASED GLUCOSE; Start 02/21/19 at 06:00 Dextrose (D50w Syringe) 50 ml Q15M PRN IV DECREASED GLUCOSE; Start 02/21/19 at 06:00 Glucagon (Glucagen) 1 mg Q15M PRN IM DECREASED GLUCOSE; Start 02/21/19 at 06:00 Glucose (Glutose) 15 gm Q15M PRN BUCCAL DECREASED GLUCOSE; Start 02/21/19 at 06:00 Sodium Hypochlorite (Dakins Diluted ()) 1 applic DAILY TP Last administered on 03/02/19at 09:29; Admin Dose 1 APPLIC; Start 02/22/19 at 09:00 Aspirin (Aspirin) 81 mg DAILY PO Last administered on 03/02/19 09:28; Admin Dose 81 MG; Start 02/22/19 at 14:30 Heparin Sodium (Porcine) (Heparin (5000 Units/1ml)) 5,000 unit BID SC Last administered on 03/02/19 08:10; Admin Dose 5,000 UNIT; Start 02/24/19 at 21:00 Levothyroxine Sodium (Synthroid) 150 mcg BEFORE BREAKFAST PO Last administered on 03/02/19 04:49; Admin Dose 150 MCG; Start 02/25/19 at 07:00 Polyethylene Glycol (Miralax) 17 gm DAILY PRN PO CONSTIPATION Last administered on 02/26/19 21:05; Admin Dose 17 GM; Start 02/25/19 at 10:00 Senna/Docusate Sodium (Senokot-S) 1 tab BID PRN PO constipation; Start 02/25/19 at 10:00 Bisacodyl (Dulcolax Supp) 10 mg DAILY PRN [place] CONSTIPATION; Start 02/25/19 at 10:00 Albuterol/ Ipratropium (Duoneb) 3 ml Q6HWA RESP THERAPY HHN Last administered on 03/02/19 08:46; Admin Dose 3 ML; Start 02/26/19 at 20:00 Albuterol/ Ipratropium (Duoneb) 3 ml Q2H RESP THERAPY PRN HHN shortness of breath Last administered on 02/26/19 16:13; Admin Dose 3 ML; Start 02/26/19 at 15:00 Budesonide (Pulmicort (Neb)) 0.5 mg BID RESP THERAPY HHN Last administered on 03/02/19 08:46; Admin Dose 0.5 MG; Start 02/26/19 at 20:00 Famotidine (Pepcid) 20 mg DAILY PO Last administered on 03/02/19 09:28; Admin Dose 20 MG; Start 02/27/19 at 09:00 Insulin Aspart (Novolog Insulin Pen) 5 unit WITH MEALS SC Last administered on 03/02/19 12:13; Admin Dose 5 UNIT; Start 02/28/19 at 07:35 Insulin Glargine (Lantus) 15 units DAILY@2000 SC Last administered on 03/01/19 20:58; Admin Dose 15 UNITS; Start 02/27/19 at 22:00 Diagnostic Test (Pha) (Accu-Chek) 1 ea 02 XX Last administered on 03/02/19 02:23; Admin Dose 1 EA; Start 02/28/19 at 02:00 Insulin Aspart (Novolog Insulin Pen) NOVOLOG *MODERATE* ALGORITHM WITH MEALS BEDTIME SC Last administered on 03/02/19 12:14; Admin Dose 12 UNIT; Start 02/27/19 at 21:30 Methylprednisolone Sodium Succinate (Solu-Medrol) 40 mg Q12 IV Last administered on 03/02/19 08:10; Admin Dose 40 MG; Start 03/01/19 at 12:00 Guaifenesin/ Codeine Phosphate (Robitussin Ac Liquid Cup) 5 ml Q4H PRN PO cough; Start 03/01/19 at 10:30 Vancomycin HCl (Vanco Iv Per Pharmacy) VANCOMYCIN PER PHARMACY PER PROTOCOL XX ; Start 03/01/19 at 10:30 Azithromycin 250 ml @ 250 mls/hr Q24H IVPB Last administered on 03/02/19at 12:12; Admin Dose 250 MLS/HR; Start 03/01/19 at 12:00 Vancomycin HCl 1.25 gm/Sodium Chloride 250 ml @ 83.333 mls/ hr Q24H IVPB Last administered on 03/02/19at 13:57; Admin Dose 83.333 MLS/HR; Start 03/02/19 at 14:00 Hydrochlorothiazide (Hydrochlorothiazide) 25 mg DAILY@0600 PO Last administered on 03/02/19at 09:29; Admin Dose 25 MG; Start 03/02/19 at 09:00 VTE Prophylaxis Risk score (from [facility] [place])>0 risk: 6 SCD applied (from [facility] [place]): Yes Lines/Catheters IV Catheter Type: Goodman in Place: No Assessment/Plan Hospital Course Subjective Patient still having some mild trouble with resp, but feeling overall, ok. Objective Physical exam General: Patient is laying in bed and answers questions appropriately Mentation: Patient is alert and oriented 4, Head: Normocephalic atraumatic Eyes: EOMI, pupils reactive to light Neck: Supple, nontender, midline Respiratory: Very mild wheezing to auscultation bilaterally Cardiovascular: regular rate, no obvious murmurs Gastrointestinal: non-tender to palpation, bowel sounds heard. Neurological: Moves all extremities spontaneously Skin: Surgical site, bandage, CDI Assessment/Plan Right great toe gas gangrene s/p I&D 02/21 - Podiatry on board and appreciate recommendations. - ID consultation appreciated. Continue Zosyn for now - Arterial imaging studies noted and will need fem/pop bypass, however vascular having difficulty finding time in his schedule and OR time Pulmonary edema with bilateral wheezing, worse on right side shortness of breath, -DuoNeb, budesonide nebulizer -bnp elevated -Lasix will be spot dosed due to creatinine increase while on scheduled lasix, will increase hydrochlorothiazide and stop amlodipine so that it can help with her diuresis and blood pressure at the same time -Chest x-ray showing improving edema, signs of pneumonia still present -Due to worsening cough, and respiratory status not improving significantly, will order CT of the chest -Patient may have undiagnosed COPD as patient has [place] cooking [place] wood stove [place], will start IV steroids for now given her respiratory status not improving significantly -CT showing edema Poorly controlled diabetes mellitus - A1c noted - Will continue home Lantus and adjust as needed - DM education consultation appreciated h/o CAD s/p PCI - continue home medications - Cardiology consultation appreciated. continue on aspirin HTN - continue home medications with holding parameters hypothyroidism - TSH noted and will increase levothyroxine dose - will need outpatient repeat thyroid studies in 4-6 weeks Hyperlipidemia - continue statin PAD - Vascular consultation appreciated and plans for fem pop given angiogram findings when able - aspirin on board Disposition -Vascular surgery attempted to find OR time however may not be able to get it done this week, continue IV antibiotics for now BRADLEY LEONG Mar 02, 2019 14:17
[2019-03-02] MEDS ORDERED: FUROSEMIDE 20 MG INJ IV ONE (14:30)
[2019-03-02 14:49] VITALS: BP 155/70; PULSE 60
[2019-03-02] MEDS ORDERED: INSULIN ASPART [NOVOLOG] 3 ML PEN SC SCH (17:35)
--- NOTE | 2019-03-02 18:43 | CONS ---
Assessment/Plan Assessment/Plan Hospital Course (Demo Recall) 1200 patient is awake looks comfortable no fevers. Antimicrobials: Vanco, Zithromax, Zosyn Microbiology right foot wound culture grew REAL and enterococcus species CT chest revealed pulmonary edema Physical examination: Obese well-developed fragile elderly woman who is alert in no distress. Head atraumatic normocephalic sclera nonicteric neck is supple chest rise symmetrical breath sounds clear heart: S1-S2. Abdomen soft bowel sounds present. Extremities without cyanosis, right foot dressing intact Assessment: 1. Right foot cellulitis with toe gangrene 2. Peripheral arterial disease status post abdominal aortogram with right popliteal artery angioplasty 02/23/19 3. Diabetes 4. PNA vs CHF Plan: Stable, change antibiotics to oral Levaquin and IV ampicillin, patient is due for revascularization procedure next week Consultation Date/Type/Reason Admit Date/Time February 20, 2019 at 23:53 Initial Consult Date Type of Consult id Date/Time of Note DATE: 03/02/19 TIME: 18:41 Exam/Review of Systems Exam Vitals Vital Signs Date Temp Pulse Resp B/P (MAP) Pulse Ox O2 O2 Flow FiO2 Time Delivery Rate 03/02/19 60 155/70 14:49 (98) 03/02/19 18 95 Nasal 2.0 14:37 Cannula 03/02/19 98.8 14:00 02/26/19 28 19:51 Intake and Output 03/01/19 03/01/19 03/02/19 1515:00 23:00 07:00 IntakeIntake Total 3950 ml 1070 ml 100 ml BalanceBalance 3950 ml 1070 ml 100 ml Results Result Diagram: 03/02/19 0521 03/02/19 0521 Results 24hrs Laboratory Tests Test 03/01/19 20:57 03/02/19 02:03 03/02/19 05:21 03/02/19 08:06 Bedside Glucose 277 H 276 H 316 H White Blood Count 7.2 # Red Blood Count 3.40 L Hemoglobin 9.6 L Hematocrit 31.1 L Mean Corpuscular Volume 91.5 Mean Corpuscular 28.2 L Hemoglobin Mean Corpuscular 30.9 L Hemoglobin Concent Red Cell Distribution 13.4 Width Platelet Count 361 Mean Platelet Volume 9.9 Immature Granulocytes % 1.800 H Neutrophils % 86.1 H Lymphocytes % 10.1 L Monocytes % 1.9 Eosinophils % 0.0 Basophils % 0.1 Nucleated Red Blood 0.0 Cells % Immature Granulocytes # 0.130 H Neutrophils # 6.2 Lymphocytes # 0.7 L Monocytes # 0.1 L Eosinophils # 0.0 Basophils # 0.0 Nucleated Red Blood 0.0 Cells # Sodium Level 138 Potassium Level 4.4 Chloride Level 96 L Carbon Dioxide Level 35 H Anion Gap 7 Blood Urea Nitrogen 23 H Creatinine 0.80 Est Glomerular Filtrat Rate mL/min Glucose Level 324 #H Calcium Level 8.8 Phosphorus Level 4.2 Magnesium Level 1.9 Test 03/02/19 12:10 03/02/19 17:52 Bedside Glucose 382 H 441 *H Medications Medication Current Medications Ondansetron HCl (Zofran Inj) 4 mg Q6H PRN IV NAUSEA AND/OR VOMITING Last administered on 02/21/19 06:47; Admin Dose 4 MG; Start 02/21/19 at 01:30 Acetaminophen (Tylenol Liquid) 650 mg Q6H PRN PO PAIN LEVEL 1-3 OR FEVER Last a dministered on 02/24/19 08:53; Admin Dose 650 MG; Start 02/21/19 at 01:30 Acetaminophen/ Hydrocodone Bitart ([place] (5/325)) 1 tab Q6H PRN PO PAIN LEVEL 4-6 Last administered on 03/01/19 00:01; Admin Dose 1 TAB; Start 02/21/19 at 01:30 Piperacillin Sod/ Tazobactam Sod 100 ml @ 200 mls/hr Q6 IVPB Last administered on 03/02/19 17:57; Admin Dose 200 MLS/HR; Start 02/21/19 at 06:00 Morphine Sulfate (morphine) 4 mg Q4H PRN IV SEVERE PAIN LEVEL 7-10 Last administered on 02/26/19 11:42; Admin Dose 4 MG; Start 02/21/19 at 05:30 Atorvastatin Calcium (Lipitor) 40 mg QHS PO Last administered on 03/01/19 21:02; Admin Dose 40 MG; Start 02/21/19 at 21:00 Carvedilol (Coreg) 3.125 mg BID PO Last administered on 03/01/19 21:02; Admin Dose 3.125 MG; Start 02/21/19 at 09:00 Ferrous Sulfate (Ferrous Sulfate (Ec)) 325 mg QAM PO Last administered on 03/02/19 09:28; Admin Dose 325 MG; Start 02/21/19 at 09:00 Montelukast Sodium (Singulair) 10 mg QHS PO Last administered on 03/01/19at 21:02; Admin Dose 10 MG; Start 02/21/19 at 21:00 Miscellaneous Information 1 ea NOTE XX ; Start 02/21/19 at 06:00 Glucose (Glutose) 15 gm Q15M PRN PO DECREASED GLUCOSE; Start 02/21/19 at 06:00 Glucose (Glutose) 22.5 gm Q15M PRN PO DECREASED GLUCOSE; Start 02/21/19 at 06:00 Dextrose (D50w Syringe) 25 ml Q15M PRN IV DECREASED GLUCOSE; Start 02/21/19 at 06:00 Dextrose (D50w Syringe) 50 ml Q15M PRN IV DECREASED GLUCOSE; Start 02/21/19 at 06:00 Glucagon (Glucagen) 1 mg Q15M PRN IM DECREASED GLUCOSE; Start 02/21/19 at 06:00 Glucose (Glutose) 15 gm Q15M PRN BUCCAL DECREASED GLUCOSE; Start 02/21/19 at 06:00 Sodium Hypochlorite (Dakins Diluted ()) 1 applic DAILY TP Last administered on 03/02/19 09:29; Admin Dose 1 APPLIC; Start 02/22/19 at 09:00 Aspirin (Aspirin) 81 mg DAILY PO Last administered on 03/02/19 09:28; Admin Dose 81 MG; Start 02/22/19 at 14:30 Heparin Sodium (Porcine) (Heparin (5000 Units/1ml)) 5,000 unit BID SC Last administered on 03/02/19 08:10; Admin Dose 5,000 UNIT; Start 02/24/19 at 21:00 Levothyroxine Sodium (Synthroid) 150 mcg BEFORE BREAKFAST PO Last administered on 03/02/19 04:49; Admin Dose 150 MCG; Start 02/25/19 at 07:00 Polyethylene Glycol (Miralax) 17 gm DAILY PRN PO CONSTIPATION Last administered on 02/26/19 21:05; Admin Dose 17 GM; Start 02/25/19 at 10:00 Senna/Docusate Sodium (Senokot-S) 1 tab BID PRN PO constipation; Start 02/25/19 at 10:00 Bisacodyl (Dulcolax Supp) 10 mg DAILY PRN [place] CONSTIPATION; Start 02/25/19 at 10:00 Albuterol/ Ipratropium (Duoneb) 3 ml Q6HWA RESP THERAPY HHN Last administered on 03/02/19 14:37; Admin Dose 3 ML; Start 02/26/19 at 20:00 Albuterol/ Ipratropium (Duoneb) 3 ml Q2H RESP THERAPY PRN HHN shortness of breath Last administered on 02/26/19 16:13; Admin Dose 3 ML; Start 02/26/19 at 15:00 Budesonide (Pulmicort (Neb)) 0.5 mg BID RESP THERAPY HHN Last administered on 03/02/19 08:46; Admin Dose 0.5 MG; Start 02/26/19 at 20:00 Famotidine (Pepcid) 20 mg DAILY PO Last administered on 03/02/19 09:28; Admin Dose 20 MG; Start 02/27/19 at 09:00 Diagnostic Test (Pha) (Accu-Chek) 1 ea 02 XX Last administered on 03/02/19 02:23; Admin Dose 1 EA; Start 02/28/19 at 02:00 Insulin Aspart (Novolog Insulin Pen) NOVOLOG *MODERATE* ALGORITHM WITH MEALS BEDTIME SC Last administered on 03/02/19 17:57; Admin Dose 12 UNIT; Start 02/27/19 at 21:30 Methylprednisolone Sodium Succinate (Solu-Medrol) 40 mg Q12 IV Last administered on 03/02/19 08:10; Admin Dose 40 MG; Start 03/01/19 at 12:00 Guaifenesin/ Codeine Phosphate (Robitussin Ac Liquid Cup) 5 ml Q4H PRN PO cough; Start 03/01/19 at 10:30 Vancomycin HCl (Vanco Iv Per Pharmacy) VANCOMYCIN PER PHARMACY PER PROTOCOL XX ; Start 03/01/19 at 10:30 Azithromycin 250 ml @ 250 mls/hr Q24H IVPB Last administered on 03/02/19 12:12; Admin Dose 250 MLS/HR; Start 03/01/19 at 12:00 Vancomycin HCl 1.25 gm/Sodium Chloride 250 ml @ 83.333 mls/ hr Q24H IVPB Last administered on 03/02/19at 13:57; Admin Dose 83.333 MLS/HR; Start 03/02/19 at 14:00 Hydrochlorothiazide (Hydrochlorothiazide) 25 mg DAILY@0600 PO Last administered on 03/02/19at 09:29; Admin Dose 25 MG; Start 03/02/19 at 09:00 Insulin Glargine (Lantus) 25 units DAILY@2000 SC ; Start 03/02/19 at 20:00 Insulin Aspart (Novolog Insulin Pen) 9 unit WITH MEALS SC ; Start 03/03/19 at 07:35 TORI GARCIA NP Mar 02, 2019 18:43
--- NOTE | 2019-03-02 18:56 | CONS ---
DATE OF ADMISSION: 02/20/2019 DATE OF CONSULTATION: 03/02/2019 SUBJECTIVE FINDINGS: The patient with right foot gangrene of hallux, osteomyelitis, is scheduled for right pop to DP bypass with Dr. Rich. OBJECTIVE FINDINGS: VITAL SIGNS: Temperature 98.8, pulse is 80, respiratory rate 20, blood pressure 132/62, pulse oximet ry is 96%. EXTREMITIES: Right foot with gangrene. No evidence of gas. Exposed bone. Mild edema. No cellulit is or lymphangitis. Wound cultures Staph aureus and Enterococcus species. LABORATORIES: WBC 7.2, hemoglobin 9.6, hematocrit 31.1, platelets 361. Sodium 138, potassium 4.4, c hloride 96, CO2 of 35, BUN 23, creatinine 0.8, glucose 324. Pathology from 02/21/2019, gangrenous sk in and subcutaneous tissue. ASSESSMENT: 1. Right foot gangrene, dry. 2. Peripheral arterial disease, pending right pop to DP bypass next Tuesday pending OR availability. 3. Osteomyelitis. 4. Diabetes. 5. Aspiration pneumonia versus CHF. PLAN: Continue daily wound care. Nursing recommendations given. We will be planning foot surgery f ollowing revascularization. Coordination of care discussed with vascular and recommend tight glycemi c control in the interim. Recommend decubitus precautions as the patient at high risk. Dictated By: ERIN THORNTON/MARIANNA Conf#: [id number] DID#: [id number]
[2019-03-02] MEDS ORDERED: INSULIN GLARGINE [LANTus] (100 UNITS/ML) SYG SC SCH (20:00)
[2019-03-02 20:15] VITALS: BP 153/66; PULSE 50; RESP 20
[2019-03-02] MEDS: MONTELUKAST 10 MG TAB PO SCH (20:25)
[2019-03-02] MEDS: ATORVASTATIN 40 MG TAB PO SCH (20:31)
[2019-03-02] MEDS: AMPICILLIN 1 GM/NS (PMX) 50 ML IVPB SCH (21:20)
[2019-03-03] MEDS: HYDROCODONE/APAP (5/325) TAB PO PRN (01:52)
[2019-03-03 02:15] VITALS: BP 162/73; PULSE 55; RESP 20
[2019-03-03] MEDS: ACCU-CHEK XX SCH (02:49)
[2019-03-03] MEDS: AMPICILLIN 1 GM/NS (PMX) 50 ML IVPB SCH ×4 (04:38→22:01)
[2019-03-03] MEDS: HYDROCHLOROTHIAZIDE 25 MG TAB PO SCH (04:41)
[2019-03-03] MEDS: LEVOTHYROXINE 150 MCG TAB PO SCH (04:42)
[2019-03-03] MEDS: LEVOFLOXACIN 500 MG TAB PO SCH (05:15)
[2019-03-03] MEDS: INSULIN ASPART [NOVOLOG] 3 ML PEN SC SCH ×7 (08:05→20:47)
[2019-03-03 08:42] VITALS: BP 158/73; PULSE 50; RESP 18
[2019-03-03] MEDS: BUDESONIDE (NEB) 0.5MG/2ML AMP HHN SCH ×2 (09:00→20:37)
[2019-03-03] MEDS: DAKINS 0.0125%(1/40) 473 ML SOLUTION TP SCH (09:00)
[2019-03-03] MEDS: ALBUTEROL/IPRATROPIUM (NEB) 3 ML AMP HHN SCH ×3 (09:17→20:37)
[2019-03-03] MEDS: morphine 4 MG/ML VIAL IV PRN ×2 (09:23→15:28)
[2019-03-03] MEDS: FERROUS SULFATE (EC) 325 MG TAB PO SCH (12:16)
[2019-03-03] MEDS: FAMOTIDINE 20 MG TAB PO SCH (12:16)
[2019-03-03] MEDS: ASPIRIN 81 MG TAB PO SCH (12:17)
[2019-03-03] MEDS: HEPARIN 5,000 UNIT/1 ML VIAL SC SCH ×2 (12:23→20:47)
[2019-03-03 14:40] VITALS: BP 142/83; PULSE 67; RESP 18
--- NOTE | 2019-03-03 14:57 | CONS ---
Assessment/Plan Assessment/Plan Hospital Course (Demo Recall) ID PROGRESS NOTE CURRENT ABX: DAY # => Ampicillin + Levaquin s/p Zyvox, Azith, Zosyn 24H INTERVAL SUMMARY * Resting in bed without distress, awake, no complaints, VSS, no fevers, chart reviewed * CT chest revealed pulmonary edema MICRO/OTHER * 02/20/19 BCX (-) * 02/21/19 Wound Cx (+) WOUND CULTURE Final Organism 1 STAPHYLOCOCCUS AUREUS QUANTITY 1+ Organism 2 ENTEROCOCCUS SPECIES QUANTITY 1+ S AUREUS ENT SPS M.I.C. RX M.I.C. RX --------- --- --------- --- AMPICILLIN <=2 S CEFAZOLIN S CIPROFLOXACIN <=0.5 S CLINDAMYCIN <=0.25 S DOXYCYCLINE S ERYTHROMYCIN <=0.25 S LEVOFLOXACIN 0.25 S OXACILLIN 0.5 S PENICILLIN-G >=0.5 R 2 S RIFAMPIN <=0.5 S VANCOMYCIN <=0.5 S 2 S TRIMETHOPRIM/SULFAMETHOXAZOLE <=10 S PHYSICAL EXAMINATION: GENERAL: VSS, NAD HEENT: AT, NC, anicteric, NECK: Supple, CHEST: Equal chest rise bilaterally, without dyspnea on observation HEART: Pulse RRR ABDOMEN: Soft : deferred EXTREMITIES: Warm, dry -- Rfoot w/erythema and toe gangrene SKIN: No rash, no diaphoresis ID ASSESSMENT 74 yo F admit with: 1. Right foot cellulitis with toe gangrene 2. Peripheral arterial disease status post abdominal aortogram with right popliteal artery angioplasty 02/23/19 3. Diabetes 4. PNA vs CHF ABX ALLERGIES: None to ABX INVASIVES: PIV CURRENT ABX: DAY # > ID RECOMMENDATIONS/PLAN: 1. Continue current ABX 2. Per notes: patient is due for revascularization procedure next week Consultation Date/Type/Reason Admit Date/Time February 20, 2019 at 23:53 Initial Consult Date Date/Time of Note DATE: 03/03/19 TIME: 14:56 Exam/Review of Systems Exam Vitals Vital Signs Date Temp Pulse Resp B/P (MAP) Pulse Ox O2 O2 Flow FiO2 Time Delivery Rate 03/03/19 98.2 67 18 142/83 96 Nasal 2.0 14:40 (102) Cannula Intake and Output 03/02/19 03/02/19 03/03/19 1515:00 23:00 07:00 IntakeIntake Total 1490 ml 350 ml 50 ml BalanceBalance 1490 ml 350 ml 50 ml Results Result Diagram: 03/02/19 0503/02/19 05 Results 24hrs Laboratory Tests Test 03/02/19 17:52 03/02/19 20:21 03/03/19 01:45 03/03/19 08:03 Bedside Glucose 441 *H 275 H 251 H 296 H Test 03/03/19 12:20 Bedside Glucose 377 H Medications Medication Current Medications Ondansetron HCl (Zofran Inj) 4 mg Q6H PRN IV NAUSEA AND/OR VOMITING Last administered on 02/21/19 06:47; Admin Dose 4 MG; Start 02/21/19 at 01:30 Acetaminophen (Tylenol Liquid) 650 mg Q6H PRN PO PAIN LEVEL 1-3 OR FEVER Last administered on 02/24/19 08:53; Admin Dose 650 MG; Start 02/21/19 at 01:30 Acetaminophen/ Hydrocodone Bitart ([place] (5/325)) 1 tab Q6H PRN PO PAIN LEVEL 4-6 Last administered on 03/03/19 01:52; Admin Dose 1 TAB; Start 02/21/19 at 01:30 Morphine Sulfate (morphine) 4 mg Q4H PRN IV SEVERE PAIN LEVEL 7-10 Last administered on 03/03/19 09:23; Admin Dose 4 MG; Start 02/21/19 at 05:30 Atorvastatin Calcium (Lipitor) 40 mg QHS PO Last administered on 03/02/19 20:31; Admin Dose 40 MG; Start 02/21/19 at 21:00 Carvedilol (Coreg) 3.125 mg BID PO Last administered on 03/03/19 12:17; Admin Dose 3.125 MG; Start 02/21/19 at 09:00 Ferrous Sulfate (Ferrous Sulfate (Ec)) 325 mg QAM PO Last administered on 03/03/19 12:16; Admin Dose 325 MG; Start 02/21/19 at 09:00 Montelukast Sodium (Singulair) 10 mg QHS PO Last administered on 03/02/19 20 :25; Admin Dose 10 MG; Start 02/21/19 at 21:00 Miscellaneous Information 1 ea NOTE XX ; Start 02/21/19 at 06:00 Glucose (Glutose) 15 gm Q15M PRN PO DECREASED GLUCOSE; Start 02/21/19 at 06:00 Glucose (Glutose) 22.5 gm Q15M PRN PO DECREASED GLUCOSE; Start 02/21/19 at 06:00 Dextrose (D50w Syringe) 25 ml Q15M PRN IV DECREASED GLUCOSE; Start 02/21/19 at 06:00 Dextrose (D50w Syringe) 50 ml Q15M PRN IV DECREASED GLUCOSE; Start 02/21/19 at 06:00 Glucagon (Glucagen) 1 mg Q15M PRN IM DECREASED GLUCOSE; Start 02/21/19 at 06:00 Glucose (Glutose) 15 gm Q15M PRN BUCCAL DECREASED GLUCOSE; Start 02/21/19 at 06:00 Sodium Hypochlorite (Dakins Diluted ()) 1 applic DAILY TP Last administered on 03/02/19 09:29; Admin Dose 1 APPLIC; Start 02/22/19 at 09:00 Aspirin (Aspirin) 81 mg DAILY PO Last administered on 03/03/19 12:17; Admin Dose 81 MG; Start 02/22/19 at 14:30 Heparin Sodium (Porcine) (Heparin (5000 Units/1ml)) 5,000 unit BID SC Last administered on 03/03/19 12:23; Admin Dose 5,000 UNIT; Start 02/24/19 at 21:00 Levothyroxine Sodium (Synthroid) 150 mcg BEFORE BREAKFAST PO Last administered on 03/03/19 04:42; Admin Dose 150 MCG; Start 02/25/19 at 07:00 Polyethylene Glycol (Miralax) 17 gm DAILY PRN PO CONSTIPATION Last administered on 02/26/19 21:05; Admin Dose 17 GM; Start 02/25/19 at 10:00 Senna/Docusate Sodium (Senokot-S) 1 tab BID PRN PO constipation; Start 02/25/19 at 10:00 Bisacodyl (Dulcolax Supp) 10 mg DAILY PRN [place] CONSTIPATION; Start 02/25/19 at 10:00 Albuterol/ Ipratropium (Duoneb) 3 ml Q6HWA RESP THERAPY HHN Last administered on 03/02/19 21:24; Admin Dose 3 ML; Start 02/26/19 at 20:00 Albuterol/ Ipratropium (Duoneb) 3 ml Q2H RESP THERAPY PRN HHN shortness of breath Last administered on 02/26/19 16:13; Admin Dose 3 ML; Start 02/26/19 at 15:00 Budesonide (Pulmicort (Neb)) 0.5 mg BID RESP THERAPY HHN Last administered on 03/02/19 08:46; Admin Dose 0.5 MG; Start 02/26/19 at 20:00 Famotidine (Pepcid) 20 mg DAILY PO Last administered on 03/03/19 12:16; Admin Dose 20 MG; Start 02/27/19 at 09:00 Diagnostic Test (Pha) (Accu-Chek) 1 ea 02 XX Last administered on 03/03/19 02:49; Admin Dose 1 EA; Start 02/28/19 at 02:00 Insulin Aspart (Novolog Insulin Pen) NOVOLOG *MODERATE* ALGORITHM WITH MEALS BEDTIME SC Last administered on 03/03/19 12:33; Admin Dose 12 UNIT; Start 02/27/19 at 21:30 Guaifenesin/ Codeine Phosphate (Robitussin Ac Liquid Cup) 5 ml Q4H PRN PO c ough; Start 03/01/19 at 10:30 Hydrochlorothiazide (Hydrochlorothiazide) 25 mg DAILY@0600 PO Last administered on 03/03/19 04:41; Admin Dose 25 MG; Start 03/02/19 at 09:00 Insulin Aspart (Novolog Insulin Pen) 9 unit WITH MEALS SC Last administered on 03/03/19 12:25; Admin Dose 9 UNIT; Start 03/03/19 at 07:35 Levofloxacin (Levaquin) 500 mg DAILY@06 PO Last administered on 03/03/19 05:15; Admin Dose 500 MG; Start 03/03/19 at 06:00 Ampicillin 50 ml @ 100 mls/hr Q8 IVPB Last administered on 03/03/19 04:38; Admin Dose 100 MLS/HR; Start 03/02/19 at 22:00 Prednisone (Prednisone) 40 mg DAILY PO ; Start 03/03/19 at 12:30 Insulin Glargine (Lantus) 15 units DAILY@2000 SC ; Start 03/03/19 at 20:00 Amlodipine Besylate (Norvasc) 2.5 mg DAILY PO ; Start 03/03/19 at 12:30 RADHA SNEED NP Mar 03, 2019 14:57
[2019-03-03] MEDS: AMLODIPINE 2.5 MG TAB PO SCH (15:02)
[2019-03-03] MEDS: predniSONE 20 MG TAB PO SCH (15:02)
--- NOTE | 2019-03-03 15:43 | PN ---
Date/Time of Note Date/Time of Note DATE: 03/03/19 TIME: 15:41 Objective Vitals Vital Signs Date Temp Pulse Resp B/P (MAP) Pulse Ox O2 O2 Flow FiO2 Time Delivery Rate 03/03/19 98.2 67 18 142/83 96 Nasal 2.0 14:40 (102) Cannula Intake and Output 03/02/19 03/02/19 03/03/19 1515:00 23:00 07:00 IntakeIntake Total 1490 ml 350 ml 50 ml BalanceBalance 1490 ml 350 ml 50 ml Results Result Diagram: 03/02/1952003/02/19520 Medications Medications Current Medications Ondansetron HCl (Zofran Inj) 4 mg Q6H PRN IV NAUSEA AND/OR VOMITING Last administered on 02/21/19 06:47; Admin Dose 4 MG; Start 02/21/19 at 01:30 Acetaminophen (Tylenol Liquid) 650 mg Q6H PRN PO PAIN LEVEL 1-3 OR FEVER Last administered on 02/24/19 08:53; Admin Dose 650 MG; Start 02/21/19 at 01:30 Acetaminophen/ Hydrocodone Bitart ([place] (5/325)) 1 tab Q6H PRN PO PAIN LEVEL 4-6 Last administered on 03/03/19 01:52; Admin Dose 1 TAB; Start 02/21/19 at 01:30 Morphine Sulfate (morphine) 4 mg Q4H PRN IV SEVERE PAIN LEVEL 7-10 Last administered on 03/03/19 15:28; Admin Dose 4 MG; Start 02/21/19 at 05:30 Atorvastatin Calcium (Lipitor) 40 mg QHS PO Last administered on 03/02/19 20:31; Admin Dose 40 MG; Start 02/21/19 at 21:00 Carvedilol (Coreg) 3.125 mg BID PO Last administered on 03/03/19 12:17; Admin Dose 3.125 MG; Start 02/21/19 at 09:00 Ferrous Sulfate (Ferrous Sulfate (Ec)) 325 mg QAM PO Last administered on 03/03/19 12:16; Admin Dose 325 MG; Start 02/21/19 at 09:00 Montelukast Sodium (Singulair) 10 mg QHS PO Last administered on 03/02/19 20:25; Admin Dose 10 MG; Start 02/21/19 at 21:00 Miscellaneous Information 1 ea NOTE XX ; Start 02/21/19 at 06:00 Glucose (Glutose) 15 gm Q15M PRN PO DECREASED GLUCOSE; Start 02/21/19 at 06:00 Glucose (Glutose) 22.5 gm Q15M PRN PO DECREASED GLUCOSE; Start 02/21/19 at 06:00 Dextrose (D50w Syringe) 25 ml Q15M PRN IV DECREASED GLUCOSE; Start 02/21/19 at 06:00 Dextrose (D50w Syringe) 50 ml Q15M PRN IV DECREASED GLUCOSE; Start 02/21/19 at 06:00 Glucagon (Glucagen) 1 mg Q15M PRN IM DECREASED GLUCOSE; Start 02/21/19 at 06:00 Glucose (Glutose) 15 gm Q15M PRN BUCCAL DECREASED GLUCOSE; Start 02/21/19 at 06:00 Sodium Hypochlorite (Dakins Diluted (40)) 1 applic DAILY TP Last administered on 03/02/19at 09:29; Admin Dose 1 APPLIC; Start 02/22/19 at 09:00 Aspirin (Aspirin) 81 mg DAILY PO Last administered on 03/03/19 12:17; Admin Dose 81 MG; Start 02/22/19 at 14:30 Heparin Sodium (Porcine) (Heparin (5000 Units/1ml)) 5,000 unit BID SC Last administered on 03/03/19 12:23; Admin Dose 5,000 UNIT; Start 02/24/19 at 21:00 Levothyroxine Sodium (Synthroid) 150 mcg BEFORE BREAKFAST PO Last administered on 03/03/19at 04:42; Admin Dose 150 MCG; Start 02/25/19 at 07:00 Polyethylene Glycol (Miralax) 17 gm DAILY PRN PO CONSTIPATION Last administered on 02/26/19 21:05; Admin Dose 17 GM; Start 02/25/19 at 10:00 Senna/Docusate Sodium (Senokot-S) 1 tab BID PRN PO constipation; Start 02/25/19 at 10:00 Bisacodyl (Dulcolax Supp) 10 mg DAILY PRN [place] CONSTIPATION; Start 02/25/19 at 10:00 Albuterol/ Ipratropium (Duoneb) 3 ml Q6HWA RESP THERAPY HHN Last administered on 6/7/19at 21:24; Admin Dose 3 ML; Start 02/26/19 at 20:00 Albuterol/ Ipratropium (Duoneb) 3 ml Q2H RESP THERAPY PRN HHN shortness of breath Last administered on 02/26/19 16:13; Admin Dose 3 ML; Start 02/26/19 at 15:00 Budesonide (Pulmicort (Neb)) 0.5 mg BID RESP THERAPY HHN Last administered on 03/02/19 08:46; Admin Dose 0.5 MG; Start 02/26/19 at 20:00 Famotidine (Pepcid) 20 mg DAILY PO Last administered on 03/03/19 12:16; Admin Dose 20 MG; Start 02/27/19 at 09:00 Diagnostic Test (Pha) (Accu-Chek) 1 ea 02 XX Last administered on 03/03/19 02:49; Admin Dose 1 EA; Start 02/28/19 at 02:00 Insulin Aspart (Novolog Insulin Pen) NOVOLOG *MODERATE* ALGORITHM WITH MEALS BEDTIME SC Last administered on 03/03/19 12:33; Admin Dose 12 UNIT; Start 02/27/19 at 21:30 Guaifenesin/ Codeine Phosphate (Robitussin Ac Liquid Cup) 5 ml Q4H PRN PO cough; Start 03/01/19 at 10:30 Hydrochlorothiazide (Hydrochlorothiazide) 25 mg DAILY@0600 PO Last administered on 03/03/19 04:41; Admin Dose 25 MG; Start 03/02/19 at 09:00 Insulin Aspart (Novolog Insulin Pen) 9 unit WITH MEALS SC Last administered on 03/03/19 12:25; Admin Dose 9 UNIT; Start 03/03/19 at 07:35 Levofloxacin (Levaquin) 500 mg DAILY@06 PO Last administered on 03/03/19 05:15; Admin Dose 500 MG; Start 03/03/19 at 06:00 Ampicillin 50 ml @ 100 mls/hr Q8 IVPB Last administered on 03/03/19 15:27; Admin Dose 100 MLS/HR; Start 03/02/19 at 22:00 Prednisone (Prednisone) 40 mg DAILY PO Last administered on 03/03/19 15:02; Admin Dose 40 MG; Start 03/03/19 at 12:30 Insulin Glargine (Lantus) 15 units DAILY@2000 SC ; Start 03/03/19 at 20:00 Amlodipine Besylate (Norvasc) 2.5 mg DAILY PO Last administered on 03/03/19at 15:02; Admin Dose 2.5 MG; Start 03/03/19 at 12:30 VTE Prophylaxis Risk score (from Nsg)>0 risk: 6 SCD applied (from Ns): Yes Lines/Catheters IV Catheter Type: Goodman in Place: No Assessment/Plan Hospital Course Subjective Patient feeling much better respiratory garsia. Objective Physical exam General: Patient is laying in bed and answers questions appropriately Mentation: Patient is alert and oriented 4, Head: Normocephalic atraumatic Eyes: EOMI, pupils reactive to light Neck: Supple, nontender, midline Respiratory: No wheezing to auscultation bilaterally Cardiovascular: regular rate, no obvious murmurs Gastrointestinal: non-tender to palpation, bowel sounds heard. Neurological: Moves all extremities spontaneously Skin: Surgical site, bandage, CDI Assessment/Plan Right great toe gas gangrene s/p I&D 02/21 - Podiatry on board and appreciate recommendations. - ID consultation appreciated. Continue Zosyn for now - Arterial imaging studies noted and will need fem/pop bypass, however vascular having difficulty finding time in his schedule and OR time Pulmonary edema with bilateral wheezing, improving -DuoNeb, budesonide nebulizer -bnp elevated -Lasix will be spot dosed due to creatinine increase while on scheduled lasix, hydrochlorothiazide increased to 25 daily -Patient may have undiagnosed COPD as patient has [place] cooking with wood stove [place], will start IV steroids for now given her respiratory status not improving significantly -CT showing edema, unlikely true pneumonia Poorly controlled diabetes mellitus - A1c noted - Will continue home Lantus and adjust as needed - DM education consultation appreciated -Hyperglycemia is likely due to combination of diuretics as well as IV steroids, we have been adjusting him having a lot of difficulty in the past few days however now that we have switched from IV steroids to oral steroid taper I suspect patient's sugars should return to normal values and we will continue to adjust insulin as needed. h/o CAD s/p PCI - continue home medications - Cardiology consultation appreciated. continue on aspirin HTN - continue home medications with holding parameters hypothyroidism - TSH noted and will increase levothyroxine dose - will need outpatient repeat thyroid studies in 4-6 weeks Hyperlipidemia - continue statin PAD - Vascular consultation appreciated and plans for fem pop given angiogram findings when able - aspirin on board Disposition -Vascular surgery attempted to find OR time however may not be able to get it done this week, continue IV antibiotics for now BRADLEY LEONG Mar 03, 2019 15:43
[2019-03-03 19:40] VITALS: BP 151/68; PULSE 57; RESP 17
[2019-03-03] MEDS ORDERED: INSULIN GLARGINE [LANTus] (100 UNITS/ML) SYG SC SCH ×2 (20:00→21:00)
[2019-03-03] MEDS: MONTELUKAST 10 MG TAB PO SCH (20:50)
[2019-03-03] MEDS: ATORVASTATIN 40 MG TAB PO SCH (20:51)
[2019-03-04] MEDS: HYDROCODONE/APAP (5/325) TAB PO PRN ×3 (02:00→20:36)
[2019-03-04] MEDS: ACCU-CHEK XX SCH (02:01)
[2019-03-04 02:07] VITALS: BP 151/69; PULSE 56; RESP 20
[2019-03-04] MEDS: AMPICILLIN 1 GM/NS (PMX) 50 ML IVPB SCH ×3 (06:04→20:36)
[2019-03-04] MEDS: LEVOFLOXACIN 500 MG TAB PO SCH (06:04)
[2019-03-04] MEDS: LEVOTHYROXINE 150 MCG TAB PO SCH (06:05)
[2019-03-04] MEDS: HYDROCHLOROTHIAZIDE 25 MG TAB PO SCH (06:05)
[2019-03-04] MEDS ORDERED: INSULIN ASPART [NOVOLOG] 3 ML PEN SC SCH ×5 (07:35→21:00)
[2019-03-04] MEDS: ALBUTEROL/IPRATROPIUM (NEB) 3 ML AMP HHN SCH ×3 (08:00→19:42)
[2019-03-04] MEDS: BUDESONIDE (NEB) 0.5MG/2ML AMP HHN SCH ×2 (08:10→19:41)
[2019-03-04] MEDS: INSULIN ASPART [NOVOLOG] 3 ML PEN SC SCH ×5 (08:40→20:41)
[2019-03-04] MEDS: HEPARIN 5,000 UNIT/1 ML VIAL SC SCH ×2 (08:41→20:42)
[2019-03-04] MEDS: ASPIRIN 81 MG TAB PO SCH (08:42)
[2019-03-04] MEDS: AMLODIPINE 2.5 MG TAB PO SCH (08:42)
[2019-03-04] MEDS: predniSONE 20 MG TAB PO SCH (08:42)
[2019-03-04] MEDS: FAMOTIDINE 20 MG TAB PO SCH (08:42)
[2019-03-04] MEDS: FERROUS SULFATE (EC) 325 MG TAB PO SCH (08:42)
[2019-03-04] MEDS: DAKINS 0.0125%(1/40) 473 ML SOLUTION TP SCH (08:44)
[2019-03-04 08:47] VITALS: BP 172/79; PULSE 50; RESP 17
--- NOTE | 2019-03-04 10:48 | CONS ---
Assessment/Plan Assessment/Plan Hospital Course (Demo Recall) ID PROGRESS NOTE CURRENT ABX: DAY # => Ampicillin + Levaquin s/p Zyvox, Azith, Zosyn 24H INTERVAL SUMMARY * Awake, doing well on [place] for pain -- transfers to commode with assist, no new issues, nor complaints, VSS, no fevers * CT chest revealed pulmonary edema MICRO/OTHER * 02/20/19 BCX (-) * 02/21/19 Wound Cx (+) WOUND CULTURE Final Organism 1 STAPHYLOCOCCUS AUREUS QUANTITY 1+ Organism 2 ENTEROCOCCUS SPECIES QUANTITY 1+ S AUREUS ENT SPS M.I.C. RX M.I.C. RX --------- --- --------- --- AMPICILLIN <=2 S CEFAZOLIN S CIPROFLOXACIN <=0.5 S CLINDAMYCIN <=0.25 S DOXYCYCLINE S ERYTHROMYCIN <=0.25 S LEVOFLOXACIN 0.25 S OXACILLIN 0.5 S PENICILLIN-G >=0.5 R 2 S RIFAMPIN <=0.5 S VANCOMYCIN <=0.5 S 2 S TRIMETHOPRIM/SULFAMETHOXAZOLE <=10 S PHYSICAL EXAMINATION: GENERAL: VSS, NAD HEENT: AT, NC, anicteric, NECK: Supple, CHEST: Equal chest rise bilaterally, without dyspnea on observation HEART: Pulse RRR ABDOMEN: Soft : deferred EXTREMITIES: Warm, dry -- Rfoot w/erythema and toe gangrene SKIN: No rash, no diaphoresis ID ASSESSMENT 74 yo F admit with: 1. Right foot cellulitis with toe gangrene 2. Peripheral arterial disease status post abdominal aortogram with right popliteal artery angioplasty 02/23/19 3. Diabetes 4. PNA vs CHF ABX ALLERGIES: None to ABX INVASIVES: PIV CURRENT ABX: DAY # > Ampicillin + Levaquin ID RECOMMENDATIONS/PLAN: 1. Continue current ABX 2. Per notes: patient is due for revascularization procedure next week Consultation Date/Type/Reason Admit Date/Time February 20, 2019 at 23:53 Initial Consult Date Date/Time of Note DATE: 03/04/19 TIME: 10:47 Exam/Review of Systems Exam Vitals Vital Signs Date Temp Pulse Resp B/P (MAP) Pulse Ox O2 O2 Flow FiO2 Time Delivery Rate 03/04/19 97.9 50 17 172/79 98 Nasal 2.0 08:47 (110) Cannula Intake and Output 03/03/19 03/03/19 03/04/19 1515:00 23:00 07:00 IntakeIntake Total 1080 ml 370 ml 50 ml OutputOutput Total 1125 ml 325 ml 300 ml BalanceBalance -45 ml 45 ml -250 ml Results Result Diagram: 03/04/19 0521 03/04/19 0521 Results 24hrs Laboratory Tests Test 03/03/19 12:20 03/03/19 17:28 03/03/19 20:30 03/03/19 21:44 Bedside Glucose 377 H 360 H 517 *H 114 Test 03/04/19 01:56 03/04/19 05:21 03/04/19 08:05 Bedside Glucose 391 H 268 H White Blood Count 8.6 Red Blood Count 3.60 L Hemoglobin 10.4 L Hematocrit 32.2 L Mean Corpuscular Volume 89.4 Mean Corpuscular 28.9 L Hemoglobin Mean Corpuscular 32.3 Hemoglobin Concent Red Cell Distribution 13.1 Width Platelet Count 398 Mean Platelet Volume 9.7 Immature Granulocytes % 1.200 H Neutrophils % 80.2 H Lymphocytes % 11.5 L Monocytes % 7.0 Eosinophils % 0.0 Basophils % 0.1 Nucleated Red Blood 0.0 Cells % Immature Granulocytes # 0.100 H Neutrophils # 6.9 Lymphocytes # 1.0 Monocytes # 0.6 Eosinophils # 0.0 Basophils # 0.0 Nucleated Red Blood 0.0 Cells # Sodium Level 136 Potassium Level 3.7 Chloride Level 90 L Carbon Dioxide Level 38 H Anion Gap 8 Blood Urea Nitrogen 32 H Creatinine 0.86 Est Glomerular Filtrat Rate mL/min Glucose Level 341 H Calcium Level 9.7 Phosphorus Level 4.2 Magnesium Level 1.9 Medications Medication Current Medications Ondansetron HCl (Zofran Inj) 4 mg Q6H PRN IV NAUSEA AND/OR VOMITING Last admini stered on 02/21/19at 06:47; Admin Dose 4 MG; Start 02/21/19 at 01:30 Acetaminophen (Tylenol Liquid) 650 mg Q6H PRN PO PAIN LEVEL 1-3 OR FEVER Last administered on 02/24/19at 08:53; Admin Dose 650 MG; Start 02/21/19 at 01:30 Acetaminophen/ Hydrocodone Bitart ([place] (5/325)) 1 tab Q6H PRN PO PAIN LEVEL 4-6 Last administered on 03/04/19 10:22; Admin Dose 1 TAB; Start 02/21/19 at 01:30 Morphine Sulfate (morphine) 4 mg Q4H PRN IV SEVERE PAIN LEVEL 7-10 Last administered on 03/03/19 15:28; Admin Dose 4 MG; Start 02/21/19 at 05:30 Atorvastatin Calcium (Lipitor) 40 mg QHS PO Last administered on 03/03/19 20:51; Admin Dose 40 MG; Start 02/21/19 at 21:00 Carvedilol (Coreg) 3.125 mg BID PO Last administered on 03/03/19 20:51; Admin Dose 3.125 MG; Start 02/21/19 at 09:00 Ferrous Sulfate (Ferrous Sulfate (Ec)) 325 mg QAM PO Last administered on 03/04/19 08:42; Admin Dose 325 MG; Start 02/21/19 at 09:00 Montelukast Sodium (Singulair) 10 mg QHS PO Last administered on 03/03/19 20:50; Admin Dose 10 MG; Start 02/21/19 at 21:00 Miscellaneous Information 1 ea NOTE XX ; Start 02/21/19 at 06:00 Glucose (Glutose) 15 gm Q15M PRN PO DECREASED GLUCOSE; Start 02/21/19 at 06:00 Glucose (Glutose) 22.5 gm Q15M PRN PO DECREASED GLUCOSE; Start 02/21/19 at 06:00 Dextrose (D50w Syringe) 25 ml Q15M PRN IV DECREASED GLUCOSE; Start 02/21/19 at 06:00 Dextrose (D50w Syringe) 50 ml Q15M PRN IV DECREASED GLUCOSE; Start 02/21/19 at 06:00 Glucagon (Glucagen) 1 mg Q15M PRN IM DECREASED GLUCOSE; Start 02/21/19 at 06:00 Glucose (Glutose) 15 gm Q15M PRN BUCCAL DECREASED GLUCOSE; Start 02/21/19 at 06:00 Sodium Hypochlorite (Dakins Diluted ()) 1 applic DAILY TP Last administered on 03/04/19 08:44; Admin Dose 1 APPLIC; Start 02/22/19 at 09:00 Aspirin (Aspirin) 81 mg DAILY PO Last administered on 03/04/19 08:42; Admin Dose 81 MG; Start 02/22/19 at 14:30 Heparin Sodium (Porcine) (Heparin (5000 Units/1ml)) 5,000 unit BID SC Last administered on 03/04/19 08:41; Admin Dose 5,000 UNIT; Start 02/24/19 at 21:00 Levothyroxine Sodium (Synthroid) 150 mcg BEFORE BREAKFAST PO Last administered on 03/04/19 06:05; Admin Dose 150 MCG; Start 02/25/19 at 07:00 Polyethylene Glycol (Miralax) 17 gm DAILY PRN PO CONSTIPATION Last administered on 02/26/19 21:05; Admin Dose 17 GM; Start 02/25/19 at 10:00 Senna/Docusate Sodium (Senokot-S) 1 tab BID PRN PO constipation; Start 02/25/19 at 10:00 Bisacodyl (Dulcolax Supp) 10 mg DAILY PRN [place] CONSTIPATION; Start 02/25/19 at 10:00 Albuterol/ Ipratropium (Duoneb) 3 ml Q6HWA RESP THERAPY HHN Last administered on 03/03/19 20:37; Admin Dose 3 ML; Start 02/26/19 at 20:00 Albuterol/ Ipratropium (Duoneb) 3 ml Q2H RESP THERAPY PRN HHN shortness of breath Last administered on 02/26/19 16:13; Admin Dose 3 ML; Start 02/26/19 at 15:00 Budesonide (Pulmicort (Neb)) 0.5 mg BID RESP THERAPY HHN Last administered on 03/03/19 20:37; Admin Dose 0.5 MG; Start 02/26/19 at 20:00 Famotidine (Pepcid) 20 mg DAILY PO Last administered on 03/04/19 08:42; Admin Dose 20 MG; Start 02/27/19 at 09:00 Diagnostic Test (Pha) (Accu-Chek) 1 ea 02 XX Last administered on 03/04/19 02:01; Admin Dose 1 EA; Start 02/28/19 at 02:00 Insulin Aspart (Novolog Insulin Pen) NOVOLOG *MODERATE* ALGORITHM WITH MEALS BEDTIME SC Last administered on 03/04/19 08:40; Admin Dose 8 UNIT; Start 02/27/19 at 21:30 Guaifenesin/ Codeine Phosphate (Robitussin Ac Liquid Cup) 5 ml Q4H PRN PO cough; Start 03/01/19 at 10:30 Hydrochlorothiazide (Hydrochlorothiazide) 25 mg DAILY@0600 PO Last administered on 03/04/19 06:05; Admin Dose 25 MG; Start 03/02/19 at 09:00 Levofloxacin (Levaquin) 500 mg DAILY@06 PO Last administered on 03/04/19 06:04; Admin Dose 500 MG; Start 03/03/19 at 06:00 Ampicillin 50 ml @ 100 mls/hr Q8 IVPB Last administered on 03/04/19 06:04; Admin Dose 100 MLS/HR; Start 03/02/19 at 22:00 Prednisone (Prednisone) 40 mg DAILY PO Last administered on 03/04/19 08:42; Admin Dose 40 MG; Start 03/03/19 at 12:30 Amlodipine Besylate (Norvasc) 2.5 mg DAILY PO Last administered on 03/04/19 08:42; Admin Dose 2.5 MG; Start 03/03/19 at 12:30 Insulin Glargine (Lantus) 22 units HS SC Last administered on 03/03/19 21:46; Admin Dose 22 UNITS; Start 03/03/19 at 21:00 Insulin Aspart (Novolog Insulin Pen) 8 unit WITH MEALS SC Last administered on 03/04/19 08:39; Admin Dose 8 UNIT; Start 03/04/19 at 07:35 RADHA SNEED NP Mar 04, 2019 10:48
[2019-03-04] MEDS ORDERED: AMLODIPINE 5 MG TAB PO ONE (11:30)
[2019-03-04 11:35] VITALS: BP 131/63; PULSE 58; RESP 18
--- NOTE | 2019-03-04 13:03 | PN ---
Date/Time of Note Date/Time of Note DATE: 03/04/19 TIME: 13:02 Objective Vitals Vital Signs Date Temp Pulse Resp B/P (MAP) Pulse Ox O2 O2 Flow FiO2 Time Delivery Rate 03/04/19 58 18 131/63 97 Nasal 2.0 11:35 (85) Cannula 03/04/19 97.9 08:47 Intake and Output 03/03/19 03/03/19 03/04/19 1515:00 23:00 07:00 IntakeIntake Total 1080 ml 370 ml 50 ml OutputOutput Total 1125 ml 325 ml 300 ml BalanceBalance -45 ml 45 ml -250 ml Results Result Diagram: 03/04/1952003/04/19520 Medications Medications Current Medications Ondansetron HCl (Zofran Inj) 4 mg Q6H PRN IV NAUSEA AND/OR VOMITING Last administered on 02/21/19 06:47; Admin Dose 4 MG; Start 02/21/19 at 01:30 Acetaminophen (Tylenol Liquid) 650 mg Q6H PRN PO PAIN LEVEL 1-3 OR FEVER Last administered on 02/24/19 08:53; Admin Dose 650 MG; Start 02/21/19 at 01:30 Acetaminophen/ Hydrocodone Bitart (Sebastian (5/325)) 1 tab Q6H PRN PO PAIN LEVEL 4-6 Last administered on 03/04/19 10:22; Admin Dose 1 TAB; Start 02/21/19 at 01:30 Morphine Sulfate (morphine) 4 mg Q4H PRN IV SEVERE PAIN LEVEL 7-10 Last administered on 03/03/19 15:28; Admin Dose 4 MG; Start 02/21/19 at 05:30 Atorvastatin Calcium (Lipitor) 40 mg QHS PO Last administered on 03/03/19 20:51 ; Admin Dose 40 MG; Start 02/21/19 at 21:00 Carvedilol (Coreg) 3.125 mg BID PO Last administered on 03/03/19 20:51; Admin Dose 3.125 MG; Start 02/21/19 at 09:00 Ferrous Sulfate (Ferrous Sulfate (Ec)) 325 mg QAM PO Last administered on 03/04/19 08:42; Admin Dose 325 MG; Start 02/21/19 at 09:00 Montelukast Sodium (Singulair) 10 mg QHS PO Last administered on 03/03/19at 20:50; Admin Dose 10 MG; Start 02/21/19 at 21:00 Miscellaneous Information 1 ea NOTE XX ; Start 02/21/19 at 06:00 Glucose (Glutose) 15 gm Q15M PRN PO DECREASED GLUCOSE; Start 02/21/19 at 06:00 Glucose (Glutose) 22.5 gm Q15M PRN PO DECREASED GLUCOSE; Start 02/21/19 at 06:00 Dextrose (D50w Syringe) 25 ml Q15M PRN IV DECREASED GLUCOSE; Start 02/21/19 at 06:00 Dextrose (D50w Syringe) 50 ml Q15M PRN IV DECREASED GLUCOSE; Start 02/21/19 at 06:00 Glucagon (Glucagen) 1 mg Q15M PRN IM DECREASED GLUCOSE; Start 02/21/19 at 06:00 Glucose (Glutose) 15 gm Q15M PRN BUCCAL DECREASED GLUCOSE; Start 02/21/19 at 06:00 Sodium Hypochlorite (Dakins Diluted ()) 1 applic DAILY TP Last administered on 03/04/19at 08:44; Admin Dose 1 APPLIC; Start 02/22/19 at 09:00 Aspirin (Aspirin) 81 mg DAILY PO Last administered on 03/04/19at 08:42; Admin Dose 81 MG; Start 02/22/19 at 14:30 Heparin Sodium (Porcine) (Heparin (5000 Units/1ml)) 5,000 unit BID SC Last administered on 03/04/19at 08:41; Admin Dose 5,000 UNIT; Start 02/24/19 at 21:00 Levothyroxine Sodium (Synthroid) 150 mcg BEFORE BREAKFAST PO Last administered on 03/04/19at 06:05; Admin Dose 150 MCG; Start 02/25/19 at 07:00 Polyethylene Glycol (Miralax) 17 gm DAILY PRN PO CONSTIPATION Last administered on 02/26/19at 21:05; Admin Dose 17 GM; Start 02/25/19 at 10:00 Senna/Docusate Sodium (Senokot-S) 1 tab BID PRN PO constipation; Start 02/25/19 at 10:00 Bisacodyl (Dulcolax Supp) 10 mg DAILY PRN [place] CONSTIPATION; Start 02/25/19 at 10:00 Albuterol/ Ipratropium (Duoneb) 3 ml Q6HWA RESP THERAPY HHN Last administered on 03/03/19 20:37; Admin Dose 3 ML; Start 02/26/19 at 20:00 Albuterol/ Ipratropium (Duoneb) 3 ml Q2H RESP THERAPY PRN HHN shortness of breath Last administered on 02/26/19 16:13; Admin Dose 3 ML; Start 02/26/19 at 15:00 Budesonide (Pulmicort (Neb)) 0.5 mg BID RESP THERAPY HHN Last administered on 03/03/19 20:37; Admin Dose 0.5 MG; Start 02/26/19 at 20:00 Famotidine (Pepcid) 20 mg DAILY PO Last administered on 03/04/19 08:42; Admin Dose 20 MG; Start 02/27/19 at 09:00 Diagnostic Test (Pha) (Accu-Chek) 1 ea 02 XX Last administered on 03/04/19 02:01; Admin Dose 1 EA; Start 02/28/19 at 02:00 Insulin Aspart (Novolog Insulin Pen) NOVOLOG *MODERATE* ALGORITHM WITH MEALS BEDTIME SC Last administered on 03/04/19 12:05; Admin Dose 2 UNIT; Start 02/27/19 at 21:30 Guaifenesin/ Codeine Phosphate (Robitussin Ac Liquid Cup) 5 ml Q4H PRN PO cough; Start 03/01/19 at 10:30 Hydrochlorothiazide (Hydrochlorothiazide) 25 mg DAILY@0600 PO Last administered on 03/04/19 06:05; Admin Dose 25 MG; Start 03/02/19 at 09:00 Levofloxacin (Levaquin) 500 mg DAILY@06 PO Last administered on 03/04/19 06:04; Admin Dose 500 MG; Start 03/03/19 at 06:00 Ampicillin 50 ml @ 100 mls/hr Q8 IVPB Last administered on 03/04/19 06:04; Admin Dose 100 MLS/HR; Start 03/02/19 at 22:00 Insulin Glargine (Lantus) 22 units HS SC Last administered on 03/03/19 21:46; Admin Dose 22 UNITS; Start 03/03/19 at 21:00 Prednisone (Prednisone) 20 mg DAILY PO ; Start 6/10/19 at 09:00 Insulin Aspart (Novolog Insulin Pen) 9 unit WITH MEALS SC Last administered on 03/04/19at 12:04; Admin Dose 9 UNIT; Start 03/04/19 at 11:30 Amlodipine Besylate (Norvasc) 10 mg DAILY PO ; Start 03/05/19 at 09:00 VTE Prophylaxis Risk score (from Ns)>0 risk: 5 SCD applied (from Ns): Yes Lines/Catheters IV Catheter Type: Goodman in Place: No Assessment/Plan Hospital Course Subjective Patient feeling much better respiratory garsia. Objective Physical exam General: Patient is laying in bed and answers questions appropriately Mentation: Patient is alert and oriented 4, Head: Normocephalic atraumatic Eyes: EOMI, pupils reactive to light Neck: Supple, nontender, midline Respiratory: No wheezing to auscultation bilaterally Cardiovascular: regular rate, no obvious murmurs Gastrointestinal: non-tender to palpation, bowel sounds heard. Neurological: Moves all extremities spontaneously Skin: Surgical site, bandage, CDI Assessment/Plan Right great toe gas gangrene s/p I&D 02/21 - Podiatry on board and appreciate recommendations. - ID consultation appreciated. Continue abx for now - Arterial imaging studies noted and will need fem/pop bypass, however vascular having difficulty finding time in his schedule and OR time Pulmonary edema with bilateral wheezing, improving -DuoNeb, budesonide nebulizer -bnp elevated -Lasix will be spot dosed due to creatinine increase while on scheduled lasix, hydrochlorothiazide increased to 25 daily -Patient may have undiagnosed COPD as patient has been cooking with wood stove [place], iv steroids now transitioned to oral. -CT showing edema, unlikely true pneumonia Poorly controlled diabetes mellitus - A1c noted - Will continue home Lantus and adjust as needed - DM education consultation appreciated -Hyperglycemia is likely due to combination of diuretics as well as IV steroids, we have been adjusting him having a lot of difficulty in the past few days however now that we have switched from IV steroids to oral steroid taper I suspect patient's sugars should return to normal values and we will continue to adjust insulin as needed. h/o CAD s/p PCI - continue home medications - Cardiology consultation appreciated. continue on aspirin HTN - continue home medications with holding parameters hypothyroidism - TSH noted and will increase levothyroxine dose - will need outpatient repeat thyroid studies in 4-6 weeks Hyperlipidemia - continue statin PAD - Vascular consultation appreciated and plans for fem pop given angiogram findings when able - aspirin on board Disposition -Vascular surgery attempted to find OR time however may not be able to get it done this week, continue IV antibiotics for now BRADLEY LEONG Mar 04, 2019 13:03
[2019-03-04 14:38] VITALS: BP 129/75; PULSE 64; RESP 17
[2019-03-04] MEDS ORDERED: SOD CHLORIDE 0.9% 500 ML IV ONE (17:30)
[2019-03-04 20:00] VITALS: BP 123/56; PULSE 56; RESP 18
[2019-03-04] MEDS ORDERED: INSULIN GLARGINE [LANTus] (100 UNITS/ML) SYG SC SCH ×3 (20:00→21:00)
[2019-03-04] MEDS: ATORVASTATIN 40 MG TAB PO SCH (20:37)
[2019-03-04] MEDS: MONTELUKAST 10 MG TAB PO SCH (20:37)
[2019-03-05 02:00] VITALS: BP 153/70; PULSE 56; RESP 17
[2019-03-05] MEDS: ACCU-CHEK XX SCH ×2 (02:00→20:30)
[2019-03-05] MEDS: AMPICILLIN 1 GM/NS (PMX) 50 ML IVPB SCH ×3 (05:31→20:30)
[2019-03-05] MEDS: LEVOFLOXACIN 500 MG TAB PO SCH (05:32)
[2019-03-05] MEDS: LEVOTHYROXINE 150 MCG TAB PO SCH (05:32)
[2019-03-05] MEDS: HYDROCHLOROTHIAZIDE 25 MG TAB PO SCH (05:33)
[2019-03-05] MEDS: ALBUTEROL/IPRATROPIUM (NEB) 3 ML AMP HHN SCH ×4 (08:00→19:51)
[2019-03-05 08:14] VITALS: BP 157/72; PULSE 53; RESP 17
[2019-03-05] MEDS: INSULIN ASPART [NOVOLOG] 3 ML PEN SC SCH ×7 (08:27→20:29)
[2019-03-05] MEDS: HEPARIN 5,000 UNIT/1 ML VIAL SC SCH ×2 (08:28→20:28)
[2019-03-05] MEDS: FAMOTIDINE 20 MG TAB PO SCH (08:31)
[2019-03-05] MEDS: ASPIRIN 81 MG TAB PO SCH (08:31)
[2019-03-05] MEDS: FERROUS SULFATE (EC) 325 MG TAB PO SCH (08:31)
[2019-03-05] MEDS: AMLODIPINE 2.5 MG TAB PO SCH (08:33)
[2019-03-05] MEDS: DAKINS 0.0125%(1/40) 473 ML SOLUTION TP SCH (08:34)
[2019-03-05] MEDS: BUDESONIDE (NEB) 0.5MG/2ML AMP HHN SCH ×3 (08:58→19:51)
[2019-03-05] MEDS ORDERED: predniSONE 20 MG TAB PO SCH (09:00)
[2019-03-05] MEDS ORDERED: NPH, HUMAN INSULIN ISOPHANE 3ML VIAL SC SCH (09:00)
[2019-03-05] MEDS ORDERED: hydrALAzine 20 MG INJ IV PRN (11:00)
--- NOTE | 2019-03-05 11:07 | PN ---
Date/Time of Note Date/Time of Note DATE: 03/05/19 TIME: 11:06 Assessment/Plan VTE Prophylaxis Risk score (from Nsg)>0 risk: 5 SCD applied (from Nsg): Yes Pharmacological prophylaxis: heparin Lines/Catheters IV Catheter Type (from Nrsg): Saline Lock Urinary Cath still in place: No Assessment/Plan Hospital Course SUBJECTIVE: Lying in bed comfortably. No fevers, chills. OBJECTIVE: Vital signs-see below PHYSICAL EXAM: Constitutional: Adequately built,not in acute distress. HEENT: Head atraumatic and normocephalic. Eyes: Extraocular muscles intact. Anicteric sclerae. Pupils equal bilaterally, reactive to light. NECK: Supple without lymph node. CHEST: Clear and good breath sounds equally. No wheezing. No rhonchi. HEART: S1, S2. Regular rate and rhythm. ABDOMEN: Soft/non tender with no rebound tenderness. Bowel sounds were present. EXTREMITIES: Right foot with Rayo wrap/dressing C/D/I. Left foot with no swelling, normal pulses. NEUROLOGIC: Alert and oriented x3. No focal deficit. No sensory deficit. PSYCHOSOCIAL: No signs of depression. INTEGUMENTARY: No open wounds. ASSESSMENT AND PLAN:74-year-old female with past medical history of coronary artery disease status post most recent PCI December 2017, diabetes, hypertension who presents with right great toe pain/blister formation, found to have gas gangrene of the right foot... Right great toe gas gangrene s/p I&D 02/21 -Continue wound care/antibiotics -Plan for pop bypass-timing/scheduling per vascular, tentatively scheduled for Tuesday. Poorly controlled diabetes mellitus -Patient with uncontrolled hyperglycemia over weekend, secondary to high-dose steroids. Patient with no evidence of COPD and with normal respiratory status, as such we will stop steroid therapy. -Increase basal insulin to 30 units with bolus 10 units 3 times daily with meals. Stop NPH. CAD s/p PCI -continue aspirin/statin/beta-blockers -Cardiology consultation appreciated. continue on aspirin HTN -Stop hydrochlorothiazide and resume ARB light of diabetes -Continue other antihypertensives. Hypothyroidism -Continue Synthroid - will need outpatient repeat thyroid studies in 4-6 weeks Hyperlipidemia - continue statin PAD - Vascular consultation appreciated and plans for fem pop given angiogram findings - aspirin on board Disposition -Vascular surgery attempted to find OR time -tentatively scheduled for this Tuesday. Continue wound care and IV antibiotics. DVT prophylaxis: Heparin Patient was seen in collaboration with Dr. Burk. Result Diagram: 03/05/19 0658 03/05/1958 Results 24hrs Laboratory Tests Test 03/04/19 11:54 03/04/19 17:07 03/04/19 20:27 03/05/19 02:13 Bedside Glucose 150 316 H 327 H 270 H Test 03/05/19 06:58 03/05/19 07:43 White Blood Count 7.4 Red Blood Count 3.72 L Hemoglobin 10.5 L Hematocrit 33.2 L Mean Corpuscular 89.2 Volume Mean Corpuscular 28.2 L Hemoglobin Mean Corpuscular 31.6 L Hemoglobin Concent Red Cell Distribution 13.3 Width Platelet Count 357 Mean Platelet Volume 9.9 Immature Granulocytes 0.900 H % Neutrophils % 70.6 Lymphocytes % 18.6 Monocytes % 9.7 Eosinophils % 0.1 Basophils % 0.1 Nucleated Red Blood 0.0 Cells % Immature Granulocytes 0.070 H # Neutrophils # 5.2 Lymphocytes # 1.4 Monocytes # 0.7 Eosinophils # 0.0 Basophils # 0.0 Nucleated Red Blood 0.0 Cells # Sodium Level 137 Potassium Level 3.7 Chloride Level 93 L Carbon Dioxide Level 37 H Anion Gap 7 Blood Urea Nitrogen 36 H Creatinine 0.86 Est Glomerular Filtrat Rate mL/min Glucose Level 248 H Calcium Level 9.4 Phosphorus Level 4.0 Magnesium Level 1.9 Bedside Glucose 222 H Exam/Review of Systems Exam Vitals Vital Signs Date Temp Pulse Resp B/P (MAP) Pulse Ox O2 O2 Flow FiO2 Time Delivery Rate 03/05/19 2.0 08:58 03/05/19 Nasal 08:35 Cannula 03/05/19 98.0 53 17 157/72 99 08:14 (100) Intake and Output 03/04/19 03/04/19 03/05/19 1515:00 23:00 07:00 IntakeIntake Total 720 ml 1240 ml 50 ml OutputOutput Total 700 ml 650 ml 250 ml BalanceBalance 20 ml 590 ml -200 ml Results Results 24hrs Laboratory Tests Test 03/04/19 11:54 03/04/19 17:07 03/04/19 20:27 03/05/19 02:13 Bedside Glucose 150 316 H 327 H 270 H Test 03/05/19 06:58 03/05/19 07:43 White Blood Count 7.4 Red Blood Count 3.72 L Hemoglobin 10.5 L Hematocrit 33.2 L Mean Corpuscular 89.2 Volume Mean Corpuscular 28.2 L Hemoglobin Mean Corpuscular 31.6 L Hemoglobin Concent Red Cell Distribution 13.3 Width Platelet Count 357 Mean Platelet Volume 9.9 Immature Granulocytes 0.900 H % Neutrophils % 70.6 Lymphocytes % 18.6 Monocytes % 9.7 Eosinophils % 0.1 Basophils % 0.1 Nucleated Red Blood 0.0 Cells % Immature Granulocytes 0.070 H # Neutrophils # 5.2 Lymphocytes # 1.4 Monocytes # 0.7 Eosinophils # 0.0 Basophils # 0.0 Nucleated Red Blood 0.0 Cells # Sodium Level 137 Potassium Level 3.7 Chloride Level 93 L Carbon Dioxide Level 37 H Anion Gap 7 Blood Urea Nitrogen 36 H Creatinine 0.86 Est Glomerular Filtrat Rate mL/min Glucose Level 248 H Calcium Level 9.4 Phosphorus Level 4.0 Magnesium Level 1.9 Bedside Glucose 222 H Medications Medication Current Medications Ondansetron HCl (Zofran Inj) 4 mg Q6H PRN IV NAUSEA AND/OR VOMITING Last administered on 02/21/19 06:47; Admin Dose 4 MG; Start 02/21/19 at 01:30 Acetaminophen (Tylenol Liquid) 650 mg Q6H PRN PO PAIN LEVEL 1-3 OR FEVER Last administered on 02/24/19 08:53; Admin Dose 650 MG; Start 02/21/19 at 01:30 Acetaminophen/ Hydrocodone Bitart (Randolph (5/325)) 1 tab Q6H PRN PO PAIN LEVEL 4-6 Last administered on 03/04/19 20:36; Admin Dose 1 TAB; Start 02/21/19 at 01:30 Morphine Sulfate (morphine) 4 mg Q4H PRN IV SEVERE PAIN LEVEL 7-10 Last administered on 03/03/19 15:28; Admin Dose 4 MG; Start 02/21/19 at 05:30 Atorvastatin Calcium (Lipitor) 40 mg QHS PO Last administered on 03/04/19 20:37; Admin Dose 40 MG; Start 02/21/19 at 21:00 Carvedilol (Coreg) 3.125 mg BID PO Last administered on 6/9/19at 20:37; Admin Dose 3.125 MG; Start 02/21/19 at 09:00 Ferrous Sulfate (Ferrous Sulfate (Ec)) 325 mg QAM PO Last administered on 03/05/19 08:31; Admin Dose 325 MG; Start 02/21/19 at 09:00 Miscellaneous Information 1 ea NOTE XX ; Start 02/21/19 at 06:00 Glucose (Glutose) 15 gm Q15M PRN PO DECREASED GLUCOSE; Start 02/21/19 at 06:00 Glucose (Glutose) 22.5 gm Q15M PRN PO DECREASED GLUCOSE; Start 02/21/19 at 06:00 Dextrose (D50w Syringe) 25 ml Q15M PRN IV DECREASED GLUCOSE; Start 02/21/19 at 06:00 Dextrose (D50w Syringe) 50 ml Q15M PRN IV DECREASED GLUCOSE; Start 02/21/19 at 06:00 Glucagon (Glucagen) 1 mg Q15M PRN IM DECREASED GLUCOSE; Start 02/21/19 at 06:00 Glucose (Glutose) 15 gm Q15M PRN BUCCAL DECREASED GLUCOSE; Start 02/21/19 at 06:00 Sodium Hypochlorite (Dakins Diluted ()) 1 applic DAILY TP Last administered on 03/05/19at 08:34; Admin Dose 1 APPLIC; Start 02/22/19 at 09:00 Aspirin (Aspirin) 81 mg DAILY PO Last administered on 03/05/19 08:31; Admin Dose 81 MG; Start 02/22/19 at 14:30 Heparin Sodium (Porcine) (Heparin (5000 Units/1ml)) 5,000 unit BID SC Last administered on 03/05/19at 08:28; Admin Dose 5,000 UNIT; Start 02/24/19 at 21:00 Levothyroxine Sodium (Synthroid) 150 mcg BEFORE BREAKFAST PO Last administered on 03/05/19 05:32; Admin Dose 150 MCG; Start 02/25/19 at 07:00 Polyethylene Glycol (Miralax) 17 gm DAILY PRN PO CONSTIPATION Last administered on 02/26/19at 21:05; Admin Dose 17 GM; Start 02/25/19 at 10:00 Senna/Docusate Sodium (Senokot-S) 1 tab BID PRN PO constipation; Start 02/25/19 at 10:00 Bisacodyl (Dulcolax Supp) 10 mg DAILY PRN [place] CONSTIPATION; Start 02/25/19 at 10:00 Albuterol/ Ipratropium (Duoneb) 3 ml Q6HWA RESP THERAPY HHN Last administered on 03/05/19at 11:05; Admin Dose 3 ML; Start 02/26/19 at 20:00 Albuterol/ Ipratropium (Duoneb) 3 ml Q2H RESP THERAPY PRN HHN shortness of breath Last administered on 02/26/19at 16:13; Admin Dose 3 ML; Start 02/26/19 at 15:00 Budesonide (Pulmicort (Neb)) 0.5 mg BID RESP THERAPY HHN Last administered on 03/05/19 11:06; Admin Dose 0.5 MG; Start 02/26/19 at 20:00 Famotidine (Pepcid) 20 mg DAILY PO Last administered on 03/05/19 08:31; Admin Dose 20 MG; Start 02/27/19 at 09:00 Guaifenesin/ Codeine Phosphate (Robitussin Ac Liquid Cup) 5 ml Q4H PRN PO cough; Start 03/01/19 at 10:30 Levofloxacin (Levaquin) 500 mg DAILY@06 PO Last administered on 03/05/19 05:32; Admin Dose 500 MG; Start 03/03/19 at 06:00 Ampicillin 50 ml @ 100 mls/hr Q8 IVPB Last administered on 03/05/19 05:31; Admin Dose 100 MLS/HR; Start 03/02/19 at 22:00 Amlodipine Besylate (Norvasc) 10 mg DAILY PO Last administered on 03/05/19at 08:33; Admin Dose 10 MG; Start 03/05/19 at 09:00 Diagnostic Test (Pha) (Accu-Chek) 1 ea 02 XX ; Start 03/05/19 at 02:00 Losartan Potassium (Cozaar) 50 mg QPM PO ; Start 03/05/19 at 21:00; Status UNV Insulin Aspart (Novolog Insulin Pen) 10 unit WITH MEALS SC ; Start 03/05/19 at 11:30; Status UNV Insulin Glargine (Lantus) 30 units DAILY@2000 SC ; Start 03/05/19 at 20:00; Status UNV Insulin Aspart (Novolog Insulin Pen) NOVOLOG *MILD* ALGORITHM WITH MEALS BEDTIME SC ; Start 03/05/19 at 12:00; Status UNV Hydralazine HCl (Apresoline) 10 mg Q6H PRN IV SBP>160; Start 03/05/19 at 11:00; Status UNV JONH ALVARADO NP Mar 05, 2019 11:06
[2019-03-05] MEDS: HYDROCODONE/APAP (5/325) TAB PO PRN ×2 (12:10→20:26)
[2019-03-05 14:00] VITALS: BP 106/55; PULSE 62
--- NOTE | 2019-03-05 14:15 | CONS ---
Assessment/Plan Assessment/Plan Hospital Course (Demo Recall) Alert, feels good Antimicrobials: Levaquin, ampicillin Microbiology right foot wound culture grew REAL and enterococcus species CT chest revealed pulmonary edema Physical examination: Obese well-developed fragile elderly woman who is alert in no distress. Head atraumatic normocephalic sclera nonicteric neck is supple chest rise symmetrical breath sounds clear heart: S1-S2. Abdomen soft bowel sounds present. Extremities without cyanosis, right foot dressing intact Assessment: 1. Right foot cellulitis with toe gangrene 2. Peripheral arterial disease status post abdominal aortogram with right popliteal artery angioplasty 02/23/19 3. Diabetes 4. PNA vs CHF Plan: Stable, continue antibiotics, plan for revascularization procedure Consultation Date/Type/Reason Admit Date/Time February 20, 2019 at 23:53 Initial Consult Date Type of Consult id Date/Time of Note DATE: 03/05/19 TIME: 14:15 Exam/Review of Systems Exam Vitals Vital Signs Date Temp Pulse Resp B/P (MAP) Pulse Ox O2 O2 Flow FiO2 Time Delivery Rate 03/05/19 2.0 08:58 03/05/19 Nasal 08:35 Cannula 03/05/19 98.0 53 17 157/72 99 08:14 (100) Intake and Output 03/04/19 03/04/19 03/05/19 1515:00 23:00 07:00 IntakeIntake Total 720 ml 1240 ml 50 ml OutputOutput Total 700 ml 650 ml 250 ml BalanceBalance 20 ml 590 ml -200 ml Results Result Diagram: 03/05/19 0658 03/05/19 0658 Results 24hrs Laboratory Tests Test 03/04/19 17:07 03/04/19 20:27 03/05/19 02:13 03/05/19 06:58 Bedside Glucose 316 H 327 H 270 H White Blood Count 7.4 Red Blood Count 3.72 L Hemoglobin 10.5 L Hematocrit 33.2 L Mean Corpuscular 89.2 Volume Mean Corpuscular 28.2 L Hemoglobin Mean Corpuscular 31.6 L Hemoglobin Concent Red Cell 13.3 Distribution Width Platelet Count 357 Mean Platelet Volume 9.9 Immature 0.900 H Granulocytes % Neutrophils % 70.6 Lymphocytes % 18.6 Monocytes % 9.7 Eosinophils % 0.1 Basophils % 0.1 Nucleated Red Blood 0.0 Cells % Immature 0.070 H Granulocytes # Neutrophils # 5.2 Lymphocytes # 1.4 Monocytes # 0.7 Eosinophils # 0.0 Basophils # 0.0 Nucleated Red Blood 0.0 Cells # Sodium Level 137 Potassium Level 3.7 Chloride Level 93 L Carbon Dioxide Level 37 H Anion Gap 7 Blood Urea Nitrogen 36 H Creatinine 0.86 Est Glomerular Filtrat Rate mL/min Glucose Level 248 H Calcium Level 9.4 Phosphorus Level 4.0 Magnesium Level 1.9 B-Type Natriuretic 1210 H Peptide Test 03/05/19 07:43 03/05/19 12:00 Bedside Glucose 222 H 98 Medications Medication Current Medications Ondansetron HCl (Zofran Inj) 4 mg Q6H PRN IV NAUSEA AND/OR VOMITING Last administered on 02/21/19 06:47; Admin Dose 4 MG; Start 02/21/19 at 01:30 Acetaminophen (Tylenol Liquid) 650 mg Q6H PRN PO PAIN LEVEL 1-3 OR FEVER Last administered on 02/24/19 08:53; Admin Dose 650 MG; Start 02/21/19 at 01:30 Acetaminophen/ Hydrocodone Bitart ([place] (5/325)) 1 tab Q6H PRN PO PAIN LEVEL 4-6 Last administered on 03/05/19 12:10; Admin Dose 1 TAB; Start 02/21/19 at 01:30 Morphine Sulfate (morphine) 4 mg Q4H PRN IV SEVERE PAIN LEVEL 7-10 Last administered on 03/03/19 15:28; Admin Dose 4 MG; Start 02/21/19 at 05:30 Atorvastatin Calcium (Lipitor) 40 mg QHS PO Last administered on 03/04/19 20:37; Admin Dose 40 MG; Start 02/21/19 at 21:00 Carvedilol (Coreg) 3.125 mg BID PO Last administered on 03/04/19 20:37; Admin Dose 3.125 MG; Start 02/21/19 at 09:00 Ferrous Sulfate (Ferrous Sulfate (Ec)) 325 mg QAM PO Last administered on 03/05/19 08:31; Admin Dose 325 MG; Start 02/21/19 at 09:00 Miscellaneous Information 1 ea NOTE XX ; Start 02/21/19 at 06:00 Glucose (Glutose) 15 gm Q15M PRN PO DECREASED GLUCOSE; Start 02/21/19 at 06:00 Glucose (Glutose) 22.5 gm Q15M PRN PO DECREASED GLUCOSE; Start 02/21/19 at 06:00 Dextrose (D50w Syringe) 25 ml Q15M PRN IV DECREASED GLUCOSE; Start 02/21/19 at 06:00 Dextrose (D50w Syringe) 50 ml Q15M PRN IV DECREASED GLUCOSE; Start 02/21/19 at 06:00 Glucagon (Glucagen) 1 mg Q15M PRN IM DECREASED GLUCOSE; Start 02/21/19 at 06:00 Glucose (Glutose) 15 gm Q15M PRN BUCCAL DECREASED GLUCOSE; Start 02/21/19 at 06:00 Sodium Hypochlorite (Dakins Diluted ()) 1 applic DAILY TP Last administered on 03/05/19 08:34; Admin Dose 1 APPLIC; Start 02/22/19 at 09:00 Aspirin (Aspirin) 81 mg DAILY PO Last administered on 03/05/19 08:31; Admin Dose 81 MG; Start 02/22/19 at 14:30 Heparin Sodium (Porcine) (Heparin (5000 Units/1ml)) 5,000 unit BID SC Last administered on 03/05/19 08:28; Admin Dose 5,000 UNIT; Start 02/24/19 at 21:00 Levothyroxine Sodium (Synthroid) 150 mcg BEFORE BREAKFAST PO Last administered on 03/05/19 05:32; Admin Dose 150 MCG; Start 02/25/19 at 07:00 Polyethylene Glycol (Miralax) 17 gm DAILY PRN PO CONSTIPATION Last administered on 02/26/19 21:05; Admin Dose 17 GM; Start 02/25/19 at 10:00 Senna/Docusate Sodium (Senokot-S) 1 tab BID PRN PO constipation; Start 02/25/19 at 10:00 Bisacodyl (Dulcolax Supp) 10 mg DAILY PRN [place] CONSTIPATION; Start 02/25/19 at 10:00 Albuterol/ Ipratropium (Duoneb) 3 ml Q6HWA RESP THERAPY HHN Last administered on 03/05/19at 11:05; Admin Dose 3 ML; Start 02/26/19 at 20:00 Albuterol/ Ipratropium (Duoneb) 3 ml Q2H RESP THERAPY PRN HHN shortness of breath Last administered on 02/26/19 16:13; Admin Dose 3 ML; Start 02/26/19 at 15:00 Budesonide (Pulmicort (Neb)) 0.5 mg BID RESP THERAPY HHN Last administered on 03/05/19 11:06; Admin Dose 0.5 MG; Start 02/26/19 at 20:00 Famotidine (Pepcid) 20 mg DAILY PO Last administered on 03/05/19 08:31; Admin Dose 20 MG; Start 02/27/19 at 09:00 Guaifenesin/ Codeine Phosphate (Robitussin Ac Liquid Cup) 5 ml Q4H PRN PO cough; Start 03/01/19 at 10:30 Levofloxacin (Levaquin) 500 mg DAILY@06 PO Last administered on 03/05/19 05:32; Admin Dose 500 MG; Start 03/03/19 at 06:00 Ampicillin 50 ml @ 100 mls/hr Q8 IVPB Last administered on 03/05/19 05:31; Admin Dose 100 MLS/HR; Start 03/02/19 at 22:00 Amlodipine Besylate (Norvasc) 10 mg DAILY PO Last administered on 03/05/19 08:33; Admin Dose 10 MG; Start 03/05/19 at 09:00 Diagnostic Test (Pha) (Accu-Chek) 1 ea 02 XX ; Start 03/05/19 at 02:00 Losartan Potassium (Cozaar) 50 mg QPM PO ; Start 03/05/19 at 21:00 Insulin Aspart (Novolog Insulin Pen) 10 unit WITH MEALS SC Last administered on 03/05/19 12:09; Admin Dose 10 UNIT; Start 03/05/19 at 11:30 Insulin Glargine (Lantus) 30 units DAILY@2000 SC ; Start 03/05/19 at 20:00 Insulin Aspart (Novolog Insulin Pen) NOVOLOG *MILD* ALGORITHM WITH MEALS BEDTIME SC ; Start 03/05/19 at 12:00 Hydralazine HCl (Apresoline) 10 mg Q6H PRN IV SBP>160; Start 03/05/19 at 11:00 TORI GARCIA NP Mar 05, 2019 14:15
[2019-03-05 20:25] VITALS: BP 130/62; PULSE 63; RESP 18
[2019-03-05] MEDS: ATORVASTATIN 40 MG TAB PO SCH (20:26)
[2019-03-05] MEDS: INSULIN GLARGINE [LANTus] (100 UNITS/ML) SYG SC SCH (20:27)
[2019-03-05] MEDS: LOSARTAN 50 MG TAB PO SCH (20:29)
[2019-03-05] MEDS: GUAIFENESIN/CODEINE 5ML CUP PO PRN (21:39)
[2019-03-06 02:16] VITALS: BP 148/68; PULSE 59; RESP 18
[2019-03-06] MEDS: LEVOTHYROXINE 150 MCG TAB PO SCH (06:09)
[2019-03-06] MEDS: LEVOFLOXACIN 500 MG TAB PO SCH (06:09)
[2019-03-06] MEDS: AMPICILLIN 1 GM/NS (PMX) 50 ML IVPB SCH ×3 (06:09→21:58)
[2019-03-06] MEDS: INSULIN ASPART [NOVOLOG] 3 ML PEN SC SCH ×7 (08:00→20:32)
[2019-03-06 08:16] VITALS: BP 110/64; PULSE 56; RESP 18
[2019-03-06] MEDS: HEPARIN 5,000 UNIT/1 ML VIAL SC SCH ×2 (08:40→20:32)
[2019-03-06] MEDS: ASPIRIN 81 MG TAB PO SCH (08:40)
[2019-03-06] MEDS: FERROUS SULFATE (EC) 325 MG TAB PO SCH (08:40)
[2019-03-06] MEDS: FAMOTIDINE 20 MG TAB PO SCH (08:41)
[2019-03-06] MEDS: GUAIFENESIN/CODEINE 5ML CUP PO PRN (08:42)
[2019-03-06] MEDS: AMLODIPINE 2.5 MG TAB PO SCH (08:46)
[2019-03-06 08:47] VITALS: BP 106/59; PULSE 58
[2019-03-06] MEDS: ALBUTEROL/IPRATROPIUM (NEB) 3 ML AMP HHN SCH ×3 (09:52→20:54)
[2019-03-06] MEDS: BUDESONIDE (NEB) 0.5MG/2ML AMP HHN SCH ×2 (09:52→20:54)
--- NOTE | 2019-03-06 10:40 | PN ---
Date/Time of Note Date/Time of Note DATE: 03/06/19 TIME: 10:38 Assessment/Plan VTE Prophylaxis Risk score (from Nsg)>0 risk: 4 SCD applied (from Nsg): Yes Pharmacological prophylaxis: heparin Lines/Catheters IV Catheter Type (from Nrsg): Saline Lock Urinary Cath still in place: No Assessment/Plan Hospital Course SUBJECTIVE: No acute overnight episodes OBJECTIVE: Vital signs-see below PHYSICAL EXAM: Constitutional: Adequately built,not in acute distress. HEENT: Head atraumatic and normocephalic. Eyes: Extraocular muscles intact. Anicteric sclerae. Pupils equal bilaterally, reactive to light. NECK: Supple without lymph node. CHEST: Clear and good breath sounds equally. No wheezing. No rhonchi. HEART: S1, S2. Regular rate and rhythm. ABDOMEN: Soft/non tender with no rebound tenderness. Bowel sounds were present. EXTREMITIES: Right foot with Rayo wrap/dressing C/D/I. Left foot with no swelling, normal pulses. NEUROLOGIC: Alert and oriented x3. No focal deficit. No sensory deficit. PSYCHOSOCIAL: No signs of depression. INTEGUMENTARY: No open wounds. ASSESSMENT AND PLAN:74-year-old female with past medical history of coronary artery disease status post most recent PCI December 2017, diabetes, hypertension who presents with right great toe pain/blister formation, found to have gas gangrene of the right foot... Right great toe gas gangrene s/p I&D 02/21 -Continue wound care/antibiotics -Plan for pop bypass-timing/scheduling per vascular, tentatively scheduled for Tuesday. Poorly controlled diabetes mellitus -Blood sugar is well controlled on this new regimen added yesterday. -Continue current basal/bolus/SSC insulin CAD s/p PCI -continue aspirin/statin/beta-blockers -Cardiology consultation appreciated. continue on aspirin HTN -cont.BB/ARB Hypothyroidism -Continue Synthroid - will need outpatient repeat thyroid studies in 4-6 weeks Hyperlipidemia - continue statin PAD - Vascular consultation appreciated and plans for fem pop given angiogram findings - aspirin on board Disposition -Vascular surgery attempted to find OR time -tentatively scheduled for this Tuesday. Continue wound care and IV antibiotics. DVT prophylaxis: Heparin Disposition: Pending vascular procedure on Tuesday. Cont. wound care and antibiotics. Patient was seen in collaboration with Dr. Burk. Result Diagram: 03/05/19 0658 03/05/19 0658 Results 24hrs Laboratory Tests Test 03/05/19 12:00 03/05/19 16:55 03/05/19 20:24 03/06/19 08:00 Bedside Glucose 98 198 137 120 Exam/Review of Systems Exam Vitals Vital Signs Date Temp Pulse Resp B/P (MAP) Pulse Ox O2 O2 Flow FiO2 Time Delivery Rate 03/06/19 58 106/59 08:47 (75) 03/06/19 98.5 18 96 08:16 03/05/19 Nasal 2.0 20:00 Cannula 03/05/19 21 19:51 Intake and Output 03/05/19 03/05/19 03/06/19 1515:00 23:00 07:00 IntakeIntake Total 50 ml 50 ml 50 ml BalanceBalance 50 ml 50 ml 50 ml Results Results 24hrs Laboratory Tests Test 03/05/19 12:00 03/05/19 16:55 03/05/19 20:24 03/06/19 08:00 Bedside Glucose 98 198 137 120 Medications Medication Current Medications Ondansetron HCl (Zofran Inj) 4 mg Q6H PRN IV NAUSEA AND/OR VOMITING Last administered on 02/21/19 06:47; Admin Dose 4 MG; Start 02/21/19 at 01:30 Acetaminophen (Tylenol Liquid) 650 mg Q6H PRN PO PAIN LEVEL 1-3 OR FEVER Last administered on 02/24/19 08:53; Admin Dose 650 MG; Start 02/21/19 at 01:30 Acetaminophen/ Hydrocodone Bitart ([place] (5/325)) 1 tab Q6H PRN PO PAIN LEVEL 4-6 Last administered on 03/05/19 20:26; Admin Dose 1 TAB; Start 02/21/19 at 01:30 Morphine Sulfate (morphine) 4 mg Q4H PRN IV SEVERE PAIN LEVEL 7-10 Last administered on 03/03/19 15:28; Admin Dose 4 MG; Start 02/21/19 at 05:30 Atorvastatin Calcium (Lipitor) 40 mg QHS PO Last administered on 03/05/19 20:26; Admin Dose 40 MG; Start 02/21/19 at 21:00 Carvedilol (Coreg) 3.125 mg BID PO Last administered on 03/05/19 20:29; Admin Dose 3.125 MG; Start 02/21/19 at 09:00 Ferrous Sulfate (Ferrous Sulfate (Ec)) 325 mg QAM PO Last administered on 03/06/19at 08:40; Admin Dose 325 MG; Start 02/21/19 at 09:00 Miscellaneous Information 1 ea NOTE XX ; Start 02/21/19 at 06:00 Glucose (Glutose) 15 gm Q15M PRN PO DECREASED GLUCOSE; Start 02/21/19 at 06:00 Glucose (Glutose) 22.5 gm Q15M PRN PO DECREASED GLUCOSE; Start 02/21/19 at 06:00 Dextrose (D50w Syringe) 25 ml Q15M PRN IV DECREASED GLUCOSE; Start 02/21/19 at 06:00 Dextrose (D50w Syringe) 50 ml Q15M PRN IV DECREASED GLUCOSE; Start 02/21/19 at 06:00 Glucagon (Glucagen) 1 mg Q15M PRN IM DECREASED GLUCOSE; Start 02/21/19 at 06:00 Glucose (Glutose) 15 gm Q15M PRN BUCCAL DECREASED GLUCOSE; Start 02/21/19 at 06:00 Sodium Hypochlorite (Dakins Diluted ()) 1 applic DAILY TP Last administered on 03/05/19at 08:34; Admin Dose 1 APPLIC; Start 02/22/19 at 09:00 Aspirin (Aspirin) 81 mg DAILY PO Last administered on 03/06/19at 08:40; Admin Dose 81 MG; Start 02/22/19 at 14:30 Heparin Sodium (Porcine) (Heparin (5000 Units/1ml)) 5,000 unit BID SC Last administered on 03/06/19at 08:40; Admin Dose 5,000 UNIT; Start 02/24/19 at 21:00 Levothyroxine Sodium (Synthroid) 150 mcg BEFORE BREAKFAST PO Last administered on 03/06/19at 06:09; Admin Dose 150 MCG; Start 02/25/19 at 07:00 Polyethylene Glycol (Miralax) 17 gm DAILY PRN PO CONSTIPATION Last administered on 02/26/19at 21:05; Admin Dose 17 GM; Start 02/25/19 at 10:00 Senna/Docusate Sodium (Senokot-S) 1 tab BID PRN PO constipation; Start 02/25/19 at 10:00 Bisacodyl (Dulcolax Supp) 10 mg DAILY PRN [place] CONSTIPATION; Start 02/25/19 at 10:00 Albuterol/ Ipratropium (Duoneb) 3 ml Q6HWA RESP THERAPY HHN Last administered on 03/06/19 09:52; Admin Dose 3 ML; Start 02/26/19 at 20:00 Albuterol/ Ipratropium (Duoneb) 3 ml Q2H RESP THERAPY PRN HHN shortness of breath Last administered on 02/26/19 16:13; Admin Dose 3 ML; Start 02/26/19 at 15:00 Budesonide (Pulmicort (Neb)) 0.5 mg BID RESP THERAPY HHN Last administered on 03/06/19 09:52; Admin Dose 0.5 MG; Start 02/26/19 at 20:00 Famotidine (Pepcid) 20 mg DAILY PO Last administered on 03/06/19 08:41; Admin Dose 20 MG; Start 02/27/19 at 09:00 Guaifenesin/ Codeine Phosphate (Robitussin Ac Liquid Cup) 5 ml Q4H PRN PO cough Last administered on 03/06/19 08:42; Admin Dose 5 ML; Start 03/01/19 at 10:30 Levofloxacin (Levaquin) 500 mg DAILY@06 PO Last administered on 03/06/19 06:09; Admin Dose 500 MG; Start 03/03/19 at 06:00 Ampicillin 50 ml @ 100 mls/hr Q8 IVPB Last administered on 03/06/19 06:09; Admin Dose 100 MLS/HR; Start 03/02/19 at 22:00 Amlodipine Besylate (Norvasc) 10 mg DAILY PO Last administered on 03/05/19 08:33; Admin Dose 10 MG; Start 03/05/19 at 09:00 Diagnostic Test (Pha) (Accu-Chek) 1 ea 02 XX ; Start 03/05/19 at 02:00 Losartan Potassium (Cozaar) 50 mg QPM PO Last administered on 03/05/19 20:29; Admin Dose 50 MG; Start 03/05/19 at 21:00 Insulin Aspart (Novolog Insulin Pen) 10 unit WITH MEALS SC Last administered on 03/06/19 08:04; Admin Dose 10 UNIT; Start 6/10/19 at 11:30 Insulin Glargine (Lantus) 30 units DAILY@2000 SC Last administered on 03/05/19at 20:27; Admin Dose 30 UNITS; Start 03/05/19 at 20:00 Insulin Aspart (Novolog Insulin Pen) NOVOLOG *MILD* ALGORITHM WITH MEALS BEDTI ME SC Last administered on 03/05/19at 17:18; Admin Dose 2 UNIT; Start 03/05/19 at 12:00 Hydralazine HCl (Apresoline) 10 mg Q6H PRN IV SBP>160; Start 03/05/19 at 11:00 JONH ALVARADO V. [employer] S[employer]ER Mar 06, 2019 10:40
--- NOTE | 2019-03-06 11:42 | CONS ---
Assessment/Plan Assessment/Plan Hospital Course (Demo Recall) No events Antimicrobials: Levaquin, ampicillin Microbiology right foot wound culture grew REAL and enterococcus species CT chest revealed pulmonary edema Physical examination: Obese well-developed fragile elderly woman who is alert in no distress. Head atraumatic normocephalic sclera nonicteric neck is supple chest rise symmetrical breath sounds clear heart: S1-S2. Abdomen soft bowel sounds present. Extremities without cyanosis, right foot dressing intact Assessment: 1. Right foot cellulitis with toe gangrene 2. Peripheral arterial disease status post abdominal aortogram with right popliteal artery angioplasty 02/23/19 3. Diabetes 4. PNA vs CHF Plan: Stable, continue antibiotics, plan for revascularization procedure on Tuesday Consultation Date/Type/Reason Admit Date/Time February 20, 2019 at 23:53 Initial Consult Date Type of Consult id Date/Time of Note DATE: 03/06/19 TIME: 11:41 Exam/Review of Systems Exam Vitals Vital Signs Date Temp Pulse Resp B/P (MAP) Pulse Ox O2 O2 Flow FiO2 Time Delivery Rate 03/06/19 58 106/59 08:47 (75) 03/06/19 Nasal 2.0 08:20 Cannula 03/06/19 98.5 18 96 08:16 03/05/19 21 19:51 Intake and Output 03/05/19 03/05/19 03/06/19 1515:00 23:00 07:00 IntakeIntake Total 50 ml 50 ml 50 ml BalanceBalance 50 ml 50 ml 50 ml Results Result Diagram: 03/05/19 0658 03/05/19 0658 Results 24hrs Laboratory Tests Test 03/05/19 12:00 03/05/19 16:55 03/05/19 20:24 03/06/19 08:00 Bedside Glucose 98 198 137 120 Medications Medication Current Medications Ondansetron HCl (Zofran Inj) 4 mg Q6H PRN IV NAUSEA AND/OR VOMITING Last administered on 02/21/19at 06:47; Admin Dose 4 MG; Start 02/21/19 at 01:30 Acetaminophen (Tylenol Liquid) 650 mg Q6H PRN PO PAIN LEVEL 1-3 OR FEVER Last administered on 02/24/19at 08:53; Admin Dose 650 MG; Start 02/21/19 at 01:30 Acetaminophen/ Hydrocodone Bitart ([place] (5/325)) 1 tab Q6H PRN PO PAIN LEVEL 4-6 Last administered on 03/05/19 20:26; Admin Dose 1 TAB; Start 02/21/19 at 01:30 Morphine Sulfate (morphine) 4 mg Q4H PRN IV SEVERE PAIN LEVEL 7-10 Last administered on 03/03/19 15:28; Admin Dose 4 MG; Start 02/21/19 at 05:30 Atorvastatin Calcium (Lipitor) 40 mg QHS PO Last administered on 03/05/19 20:26; Admin Dose 40 MG; Start 02/21/19 at 21:00 Carvedilol (Coreg) 3.125 mg BID PO Last administered on 03/05/19 20:29; Admin Dose 3.125 MG; Start 02/21/19 at 09:00 Ferrous Sulfate (Ferrous Sulfate (Ec)) 325 mg QAM PO Last administered on 03/06/19 08:40; Admin Dose 325 MG; Start 02/21/19 at 09:00 Miscellaneous Information 1 ea NOTE XX ; Start 02/21/19 at 06:00 Glucose (Glutose) 15 gm Q15M PRN PO DECREASED GLUCOSE; Start 02/21/19 at 06:00 Glucose (Glutose) 22.5 gm Q15M PRN PO DECREASED GLUCOSE; Start 02/21/19 at 06:00 Dextrose (D50w Syringe) 25 ml Q15M PRN IV DECREASED GLUCOSE; Start 02/21/19 at 06:00 Dextrose (D50w Syringe) 50 ml Q15M PRN IV DECREASED GLUCOSE; Start 02/21/19 at 06:00 Glucagon (Glucagen) 1 mg Q15M PRN IM DECREASED GLUCOSE; Start 02/21/19 at 06:00 Glucose (Glutose) 15 gm Q15M PRN BUCCAL DECREASED GLUCOSE; Start 02/21/19 at 06:00 Sodium Hypochlorite (Dakins Diluted (40)) 1 applic DAILY TP Last administered on 03/05/19at 08:34; Admin Dose 1 APPLIC; Start 02/22/19 at 09:00 Aspirin (Aspirin) 81 mg DAILY PO Last administered on 03/06/19 08:40; Admin Dose 81 MG; Start 02/22/19 at 14:30 Heparin Sodium (Porcine) (Heparin (5000 Units/1ml)) 5,000 unit BID SC Last administered on 03/06/19 08:40; Admin Dose 5,000 UNIT; Start 02/24/19 at 21:00 Levothyroxine Sodium (Synthroid) 150 mcg BEFORE BREAKFAST PO Last administered on 03/06/19 06:09; Admin Dose 150 MCG; Start 02/25/19 at 07:00 Polyethylene Glycol (Miralax) 17 gm DAILY PRN PO CONSTIPATION Last administered on 02/26/19 21:05; Admin Dose 17 GM; Start 02/25/19 at 10:00 Senna/Docusate Sodium (Senokot-S) 1 tab BID PRN PO constipation; Start 02/25/19 at 10:00 Bisacodyl (Dulcolax Supp) 10 mg DAILY PRN [place] CONSTIPATION; Start 02/25/19 at 10:00 Albuterol/ Ipratropium (Duoneb) 3 ml Q6HWA RESP THERAPY HHN Last administered on 03/06/19 09:52; Admin Dose 3 ML; Start 02/26/19 at 20:00 Albuterol/ Ipratropium (Duoneb) 3 ml Q2H RESP THERAPY PRN HHN shortness of breath Last administered on 02/26/19 16:13; Admin Dose 3 ML; Start 02/26/19 at 15:00 Budesonide (Pulmicort (Neb)) 0.5 mg BID RESP THERAPY HHN Last administered on 03/06/19 09:52; Admin Dose 0.5 MG; Start 02/26/19 at 20:00 Famotidine (Pepcid) 20 mg DAILY PO Last administered on 03/06/19 08:41; Admin Dose 20 MG; Start 02/27/19 at 09:00 Guaifenesin/ Codeine Phosphate (Robitussin Ac Liquid Cup) 5 ml Q4H PRN PO cough Last administered on 03/06/19 08:42; Admin Dose 5 ML; Start 03/01/19 at 10:30 Levofloxacin (Levaquin) 500 mg DAILY@06 PO Last administered on 03/06/19 06:09; Admin Dose 500 MG; Start 03/03/19 at 06:00 Ampicillin 50 ml @ 100 mls/hr Q8 IVPB Last administered on 03/06/19 06:09; Admin Dose 100 MLS/HR; Start 03/02/19 at 22:00 Amlodipine Besylate (Norvasc) 10 mg DAILY PO Last administered on 03/05/19 08:33; Admin Dose 10 MG; Start 03/05/19 at 09:00 Diagnostic Test (Pha) (Accu-Chek) 1 ea 02 XX ; Start 03/05/19 at 02:00 Losartan Potassium (Cozaar) 50 mg QPM PO Last administered on 03/05/19 20:29; Admin Dose 50 MG; Start 03/05/19 at 21:00 Insulin Aspart (Novolog Insulin Pen) 10 unit WITH MEALS SC Last administered on 03/06/19 08:04; Admin Dose 10 UNIT; Start 03/05/19 at 11:30 Insulin Glargine (Lantus) 30 units DAILY@2000 SC Last administered on 03/05/19 20:27; Admin Dose 30 UNITS; Start 03/05/19 at 20:00 Insulin Aspart (Novolog Insulin Pen) NOVOLOG *MILD* ALGORITHM WITH MEALS BEDTIME SC Last administered on 03/05/19 17:18; Admin Dose 2 UNIT; Start 03/05/19 at 12:00 Hydralazine HCl (Apresoline) 10 mg Q6H PRN IV SBP>160; Start 03/05/19 at 11:00 TORI GARCIA NP Mar 06, 2019 11:42
[2019-03-06] MEDS: ACETAMINOPHEN 650MG/20.3ML CUP PO PRN (12:16)
[2019-03-06] MEDS: DAKINS 0.0125%(1/40) 473 ML SOLUTION TP SCH (12:19)
[2019-03-06 14:24] VITALS: BP 103/55; PULSE 63; RESP 18
[2019-03-06] MEDS: ATORVASTATIN 40 MG TAB PO SCH (20:28)
[2019-03-06] MEDS: LOSARTAN 50 MG TAB PO SCH (20:29)
[2019-03-06 20:30] VITALS: BP 110/58; PULSE 70; RESP 18
[2019-03-06] MEDS: INSULIN GLARGINE [LANTus] (100 UNITS/ML) SYG SC SCH (20:31)
[2019-03-06] MEDS: HYDROCODONE/APAP (5/325) TAB PO PRN (22:40)
[2019-03-07] MEDS: ACCU-CHEK XX SCH (01:35)
[2019-03-07] MEDS ORDERED: traZODone 50 MG TAB PO ONE (02:00)
[2019-03-07 02:24] VITALS: BP 118/59; PULSE 63; RESP 18
[2019-03-07] MEDS: LEVOFLOXACIN 500 MG TAB PO SCH (06:17)
[2019-03-07] MEDS: LEVOTHYROXINE 150 MCG TAB PO SCH (06:17)
[2019-03-07] MEDS: AMPICILLIN 1 GM/NS (PMX) 50 ML IVPB SCH ×3 (06:17→22:35)
[2019-03-07] MEDS: FAMOTIDINE 20 MG TAB PO SCH (08:09)
[2019-03-07] MEDS: ASPIRIN 81 MG TAB PO SCH (08:10)
[2019-03-07] MEDS: FERROUS SULFATE (EC) 325 MG TAB PO SCH (08:10)
[2019-03-07] MEDS: AMLODIPINE 2.5 MG TAB PO SCH (08:11)
[2019-03-07] MEDS: DAKINS 0.0125%(1/40) 473 ML SOLUTION TP SCH (08:11)
[2019-03-07] MEDS: INSULIN ASPART [NOVOLOG] 3 ML PEN SC SCH ×7 (08:14→20:47)
[2019-03-07] MEDS: HEPARIN 5,000 UNIT/1 ML VIAL SC SCH ×2 (08:16→20:46)
[2019-03-07] MEDS: ALBUTEROL/IPRATROPIUM (NEB) 3 ML AMP HHN SCH ×3 (08:35→20:00)
[2019-03-07] MEDS: BUDESONIDE (NEB) 0.5MG/2ML AMP HHN SCH ×2 (09:21→20:00)
[2019-03-07 09:32] VITALS: BP 110/60; PULSE 80; RESP 18
--- NOTE | 2019-03-07 12:20 | PN ---
Date/Time of Note Date/Time of Note DATE: 03/07/19 TIME: Assessment/Plan VTE Prophylaxis Risk score (from Nsg)>0 risk: 5 SCD applied (from Nsg): Yes Pharmacological prophylaxis: heparin Lines/Catheters IV Catheter Type (from Nrsg): Saline Lock Urinary Cath still in place: No Assessment/Plan Hospital Course SUBJECTIVE: No acute overnight episodes OBJECTIVE: Vital signs-see below PHYSICAL EXAM: Constitutional: Adequately built,not in acute distress. HEENT: Head atraumatic and normocephalic. Eyes: Extraocular muscles intact. Anicteric sclerae. Pupils equal bilaterally, reactive to light. NECK: Supple without lymph node. CHEST: Clear and good breath sounds equally. No wheezing. No rhonchi. HEART: S1, S2. Regular rate and rhythm. ABDOMEN: Soft/non tender with no rebound tenderness. Bowel sounds were present. EXTREMITIES: Right foot with Rayo wrap/dressing C/D/I. Left foot with no swelling, normal pulses. NEUROLOGIC: Alert and oriented x3. No focal deficit. No sensory deficit. PSYCHOSOCIAL: No signs of depression. INTEGUMENTARY: No open wounds. ASSESSMENT AND PLAN:74-year-old female with past medical history of coronary artery disease status post most recent PCI December 2017, diabetes, hypertension who presents with right great toe pain/blister formation, found to have gas gangrene of the right foot... Right great toe gas gangrene s/p I&D 02/21 -Continue wound care/antibiotics -Plan for pop bypass-timing/scheduling per vascular,scheduled for Tuesday. Poorly controlled diabetes mellitus -Stable -Continue current basal/bolus/SSC insulin CAD s/p PCI -continue aspirin/statin/beta-blockers -Cardiology consultation appreciated. HTN -cont.BB/ARB Hypothyroidism -Continue Synthroid - will need outpatient repeat thyroid studies in 4-6 weeks Hyperlipidemia - continue statin PAD - Vascular consultation appreciated and plans for fem pop given angiogram [facility] - aspirin on board Disposition -Vascular surgery attempted to find OR time -tentatively scheduled for this Tuesday. Continue wound care and IV antibiotics. DVT prophylaxis: Heparin Disposition: Pending vascular procedure on Tuesday. Cont. wound care and antibiotics. Patient was seen in collaboration with Dr. Burk. Result Diagram: 03/05/19 0658 03/05/19 0658 Results 24hrs Laboratory Tests Test 03/06/19 17:11 03/06/19 20:27 03/07/19 07:59 Bedside Glucose 116 135 235 H Exam/Review of Systems Exam Vitals Vital Signs Date Temp Pulse Resp B/P (MAP) Pulse Ox O2 O2 Flow FiO2 Time Delivery Rate 03/07/19 98.8 80 18 110/60 96 Room Air 09:32 (77) 03/07/19 21 08:45 03/06/19 2.0 08:20 Intake and Output 03/06/19 03/06/19 03/07/19 1515:00 23:00 07:00 IntakeIntake Total 290 ml 960 ml 1060 ml BalanceBalance 290 ml 960 ml 1060 ml Results Results 24hrs Laboratory Tests Test 03/06/19 17:11 03/06/19 20:27 03/07/19 07:59 Bedside Glucose 116 135 235 H Medications Medication Current Medications Ondansetron HCl (Zofran Inj) 4 mg Q6H PRN IV NAUSEA AND/OR VOMITING Last administered on 02/21/19 06:47; Admin Dose 4 MG; Start 02/21/19 at 01:30 Acetaminophen (Tylenol Liquid) 650 mg Q6H PRN PO PAIN LEVEL 1-3 OR FEVER Last administered on 03/06/19 12:16; Admin Dose 650 MG; Start 02/21/19 at 01:30 Acetaminophen/ Hydrocodone Bitart ([place] (5/325)) 1 tab Q6H PRN PO PAIN LEVEL 4-6 Last administered on 03/06/19 22:40; Admin Dose 1 TAB; Start 02/21/19 at 01:30 Morphine Sulfate (morphine) 4 mg Q4H PRN IV SEVERE PAIN LEVEL 7-10 Last administered on 03/03/19 15:28; Admin Dose 4 MG; Start 02/21/19 at 05:30 Atorvastatin Calcium (Lipitor) 40 mg QHS PO Last administered on 03/06/19 20:28; Admin Dose 40 MG; Start 02/21/19 at 21:00 Carvedilol (Coreg) 3.125 mg BID PO Last administered on 03/07/19 08:10; Admin Dose 3.125 MG; Start 02/21/19 at 09:00 Ferrous Sulfate (Ferrous Sulfate (Ec)) 325 mg QAM PO Last administered on 6/12/19at 08:10; Admin Dose 325 MG; Start 02/21/19 at 09:00 Miscellaneous Information 1 ea NOTE XX ; Start 02/21/19 at 06:00 Glucose (Glutose) 15 gm Q15M PRN PO DECREASED GLUCOSE; Start 02/21/19 at 06:00 Glucose (Glutose) 22.5 gm Q15M PRN PO DECREASED GLUCOSE; Start 02/21/19 at 0 6:00 Dextrose (D50w Syringe) 25 ml Q15M PRN IV DECREASED GLUCOSE; Start 02/21/19 at 06:00 Dextrose (D50w Syringe) 50 ml Q15M PRN IV DECREASED GLUCOSE; Start 02/21/19 at 06:00 Glucagon (Glucagen) 1 mg Q15M PRN IM DECREASED GLUCOSE; Start 02/21/19 at 06:00 Glucose (Glutose) 15 gm Q15M PRN BUCCAL DECREASED GLUCOSE; Start 02/21/19 at 06:00 Sodium Hypochlorite (Dakins Diluted (40)) 1 applic DAILY TP Last administered on 03/07/19at 08:11; Admin Dose 1 APPLIC; Start 02/22/19 at 09:00 Aspirin (Aspirin) 81 mg DAILY PO Last administered on 03/07/19at 08:10; Admin Dose 81 MG; Start 02/22/19 at 14:30 Heparin Sodium (Porcine) (Heparin (5000 Units/1ml)) 5,000 unit BID SC Last administered on 03/07/19at 08:16; Admin Dose 5,000 UNIT; Start 02/24/19 at 21:00 Levothyroxine Sodium (Synthroid) 150 mcg BEFORE BREAKFAST PO Last administered on 03/07/19at 06:17; Admin Dose 150 MCG; Start 02/25/19 at 07:00 Polyethylene Glycol (Miralax) 17 gm DAILY PRN PO CONSTIPATION Last administered on 02/26/19at 21:05; Admin Dose 17 GM; Start 02/25/19 at 10:00 Senna/Docusate Sodium (Senokot-S) 1 tab BID PRN PO constipation; Start 02/25/19 at 10:00 Bisacodyl (Dulcolax Supp) 10 mg DAILY PRN [place] CONSTIPATION; Start 02/25/19 at 10:00 Albuterol/ Ipratropium (Duoneb) 3 ml Q6HWA RESP THERAPY HHN Last administered on 03/07/19 08:35; Admin Dose 3 ML; Start 02/26/19 at 20:00 Albuterol/ Ipratropium (Duoneb) 3 ml Q2H RESP THERAPY PRN HHN shortness of breath Last administered on 02/26/19 16:13; Admin Dose 3 ML; Start 02/26/19 at 15:00 Budesonide (Pulmicort (Neb)) 0.5 mg BID RESP THERAPY HHN Last administered on 03/07/19 09:21; Admin Dose 0.5 MG; Start 02/26/19 at 20:00 Famotidine (Pepcid) 20 mg DAILY PO Last administered on 03/07/19 08:09; Admin Dose 20 MG; Start 02/27/19 at 09:00 Guaifenesin/ Codeine Phosphate (Robitussin Ac Liquid Cup) 5 ml Q4H PRN PO cough Last administered on 03/06/19 08:42; Admin Dose 5 ML; Start 03/01/19 at 10:30 Levofloxacin (Levaquin) 500 mg DAILY@06 PO Last administered on 03/07/19 06:17; Admin Dose 500 MG; Start 03/03/19 at 06:00 Ampicillin 50 ml @ 100 mls/hr Q8 IVPB Last administered on 03/07/19 06:17; Admin Dose 100 MLS/HR; Start 03/02/19 at 22:00 Amlodipine Besylate (Norvasc) 10 mg DAILY PO Last administered on 03/07/19 08:11; Admin Dose 10 MG; Start 03/05/19 at 09:00 Diagnostic Test (Pha) (Accu-Chek) 1 ea 02 XX ; Start 03/05/19 at 02:00 Losartan Potassium (Cozaar) 50 mg QPM PO Last administered on 03/06/19 20:29; Admin Dose 50 MG; Start 03/05/19 at 21:00 Insulin Aspart (Novolog Insulin Pen) 10 unit WITH MEALS SC Last administered on 03/07/19 08:14; Admin Dose 10 UNIT; Start 03/05/19 at 11:30 Insulin Glargine (Lantus) 30 units DAILY@2000 SC Last administered on 03/06/19 20:31; Admin Dose 30 UNITS; Start 03/05/19 at 20:00 Insulin Aspart (Novolog Insulin Pen) NOVOLOG *MILD* ALGORITHM WITH MEALS BEDTIME SC Last administered on 03/07/19at 08:15; Admin Dose 3 UNIT; Start 03/05/19 at 12:00 Hydralazine HCl (Apresoline) 10 mg Q6H PRN IV SBP>160; Start 03/05/19 at 11:00 JONH ALVARADO NP Mar 07, 2019 12:20
--- NOTE | 2019-03-07 13:27 | CONS ---
Assessment/Plan Assessment/Plan Hospital Course (Demo Recall) Alert, feels good Antimicrobials: Levaquin, ampicillin Microbiology right foot wound culture grew REAL and enterococcus species CT chest revealed pulmonary edema Physical examination: Obese well-developed fragile elderly woman who is alert in no distress. Head atraumatic normocephalic sclera nonicteric neck is supple chest rise symmetrical breath sounds clear heart: S1-S2. Abdomen soft bowel sounds present. Extremities without cyanosis, right foot dressing intact Assessment: 1. Right foot cellulitis with toe gangrene 2. Peripheral arterial disease status post abdominal aortogram with right popliteal artery angioplasty 02/23/19 3. Diabetes 4. PNA vs CHF Plan: Remains stable, continue antibiotics, plan for revascularization procedure on Tuesday Consultation Date/Type/Reason Admit Date/Time February 20, 2019 at 23:53 Initial Consult Date Type of Consult id Date/Time of Note DATE: 03/07/19 TIME: 13:26 Exam/Review of Systems Exam Vitals Vital Signs Date Temp Pulse Resp B/P (MAP) Pulse Ox O2 O2 Flow FiO2 Time Delivery Rate 03/07/19 98.8 80 18 110/60 96 Room Air 09:32 (77) 03/07/19 21 08:45 03/06/19 2.0 08:20 Intake and Output 03/06/19 03/06/19 03/07/19 1515:00 23:00 07:00 IntakeIntake Total 290 ml 960 ml 1060 ml BalanceBalance 290 ml 960 ml 1060 ml Results Result Diagram: 03/05/19 0658 03/05/19 0658 Results 24hrs Laboratory Tests Test 03/06/19 17:11 03/06/19 20:27 03/07/19 07:59 03/07/19 12:19 Bedside Glucose 116 135 235 H 233 H Medications Medication Current Medications Ondansetron HCl (Zofran Inj) 4 mg Q6H PRN IV NAUSEA AND/OR VOMITING Last administered on 02/21/19at 06:47; Admin Dose 4 MG; Start 02/21/19 at 01:30 Acetaminophen (Tylenol Liquid) 650 mg Q6H PRN PO PAIN LEVEL 1-3 OR FEVER Last administered on 03/06/19at 12:16; Admin Dose 650 MG; Start 02/21/19 at 01:30 Acetaminophen/ Hydrocodone Bitart ([place] (5/325)) 1 tab Q6H PRN PO PAIN LEVEL 4-6 Last administered on 03/06/19 22:40; Admin Dose 1 TAB; Start 02/21/19 at 01:30 Morphine Sulfate (morphine) 4 mg Q4H PRN IV SEVERE PAIN LEVEL 7-10 Last administered on 03/03/19 15:28; Admin Dose 4 MG; Start 02/21/19 at 05:30 Atorvastatin Calcium (Lipitor) 40 mg QHS PO Last administered on 03/06/19 20:28; Admin Dose 40 MG; Start 02/21/19 at 21:00 Carvedilol (Coreg) 3.125 mg BID PO Last administered on 03/07/19 08:10; Admin Dose 3.125 MG; Start 02/21/19 at 09:00 Ferrous Sulfate (Ferrous Sulfate (Ec)) 325 mg QAM PO Last administered on 03/07/19 08:10; Admin Dose 325 MG; Start 02/21/19 at 09:00 Miscellaneous Information 1 ea NOTE XX ; Start 02/21/19 at 06:00 Glucose (Glutose) 15 gm Q15M PRN PO DECREASED GLUCOSE; Start 02/21/19 at 06:00 Glucose (Glutose) 22.5 gm Q15M PRN PO DECREASED GLUCOSE; Start 02/21/19 at 06:00 Dextrose (D50w Syringe) 25 ml Q15M PRN IV DECREASED GLUCOSE; Start 02/21/19 at 06:00 Dextrose (D50w Syringe) 50 ml Q15M PRN IV DECREASED GLUCOSE; Start 02/21/19 at 06:00 Glucagon (Glucagen) 1 mg Q15M PRN IM DECREASED GLUCOSE; Start 02/21/19 at 06:00 Glucose (Glutose) 15 gm Q15M PRN BUCCAL DECREASED GLUCOSE; Start 02/21/19 at 06:00 Sodium Hypochlorite (Dakins Diluted (40)) 1 applic DAILY TP Last administered on 03/07/19 08:11; Admin Dose 1 APPLIC; Start 02/22/19 at 09:00 Aspirin (Aspirin) 81 mg DAILY PO Last administered on 03/07/19 08:10; Admin Dose 81 MG; Start 02/22/19 at 14:30 Heparin Sodium (Porcine) (Heparin (5000 Units/1ml)) 5,000 unit BID SC Last administered on 03/07/19 08:16; Admin Dose 5,000 UNIT; Start 02/24/19 at 21:00 Levothyroxine Sodium (Synthroid) 150 mcg BEFORE BREAKFAST PO Last administered on 03/07/19 06:17; Admin Dose 150 MCG; Start 02/25/19 at 07:00 Polyethylene Glycol (Miralax) 17 gm DAILY PRN PO CONSTIPATION Last administered on 02/26/19 21:05; Admin Dose 17 GM; Start 02/25/19 at 10:00 Senna/Docusate Sodium (Senokot-S) 1 tab BID PRN PO constipation; Start 02/25/19 at 10:00 Bisacodyl (Dulcolax Supp) 10 mg DAILY PRN [place] CONSTIPATION; Start 02/25/19 at 10:00 Albuterol/ Ipratropium (Duoneb) 3 ml Q6HWA RESP THERAPY HHN Last administered on 03/07/19 08:35; Admin Dose 3 ML; Start 02/26/19 at 20:00 Albuterol/ Ipratropium (Duoneb) 3 ml Q2H RESP THERAPY PRN HHN shortness of breath Last administered on 02/26/19 16:13; Admin Dose 3 ML; Start 02/26/19 at 15:00 Budesonide (Pulmicort (Neb)) 0.5 mg BID RESP THERAPY HHN Last administered on 03/07/19 09:21; Admin Dose 0.5 MG; Start 02/26/19 at 20:00 Famotidine (Pepcid) 20 mg DAILY PO Last administered on 03/07/19 08:09; Admin Dose 20 MG; Start 02/27/19 at 09:00 Guaifenesin/ Codeine Phosphate (Robitussin Ac Liquid Cup) 5 ml Q4H PRN PO cough Last administered on 03/06/19 08:42; Admin Dose 5 ML; Start 03/01/19 at 10:30 Levofloxacin (Levaquin) 500 mg DAILY@06 PO Last administered on 03/07/19 06:17; Admin Dose 500 MG; Start 03/03/19 at 06:00 Ampicillin 50 ml @ 100 mls/hr Q8 IVPB Last administered on 03/07/19 06:17; Admin Dose 100 MLS/HR; Start 03/02/19 at 22:00 Amlodipine Besylate (Norvasc) 10 mg DAILY PO Last administered on 03/07/19 08:11; Admin Dose 10 MG; Start 03/05/19 at 09:00 Diagnostic Test (Pha) (Accu-Chek) 1 ea 02 XX ; Start 03/05/19 at 02:00 Losartan Potassium (Cozaar) 50 mg QPM PO Last administered on 03/06/19 20:29; Admin Dose 50 MG; Start 03/05/19 at 21:00 Insulin Aspart (Novolog Insulin Pen) 10 unit WITH MEALS SC Last administered on 03/07/19 12:29; Admin Dose 10 UNIT; Start 03/05/19 at 11:30 Insulin Glargine (Lantus) 30 units DAILY@2000 SC Last administered on 03/06/19 20:31; Admin Dose 30 UNITS; Start 03/05/19 at 20:00 Insulin Aspart (Novolog Insulin Pen) NOVOLOG *MILD* ALGORITHM WITH MEALS BEDTIME SC Last administered on 03/07/19 12:28; Admin Dose 3 UNIT; Start 03/05/19 at 12:00 Hydralazine HCl (Apresoline) 10 mg Q6H PRN IV SBP>160; Start 03/05/19 at 11:00 TORI GARCIA NP Mar 07, 2019 13:27
[2019-03-07] MEDS: HYDROCODONE/APAP (5/325) TAB PO PRN (14:08)
[2019-03-07 14:16] VITALS: BP 87/52; PULSE 81; RESP 18
--- NOTE | 2019-03-07 15:49 | QN ---
Documentation Comment No c/o. AFVSS R 1st toe dry gangrene, 3+ pop pulse - for R pop-DP bypass Tuesday AM ALVIN ENG MD Mar 07, 2019 15:49
[2019-03-07 20:12] VITALS: BP 96/54; PULSE 70; RESP 18
[2019-03-07] MEDS: ATORVASTATIN 40 MG TAB PO SCH (20:43)
[2019-03-07] MEDS: LOSARTAN 50 MG TAB PO SCH (20:43)
[2019-03-07] MEDS: INSULIN GLARGINE [LANTus] (100 UNITS/ML) SYG SC SCH (20:47)
[2019-03-08] MEDS: ACCU-CHEK XX SCH (02:00)
[2019-03-08 02:16] VITALS: BP 103/55; PULSE 72; RESP 18
[2019-03-08] MEDS: LEVOFLOXACIN 500 MG TAB PO SCH (06:20)
[2019-03-08] MEDS: AMPICILLIN 1 GM/NS (PMX) 50 ML IVPB SCH ×3 (06:21→21:36)
[2019-03-08] MEDS: LEVOTHYROXINE 150 MCG TAB PO SCH (08:00)
[2019-03-08] MEDS: INSULIN ASPART [NOVOLOG] 3 ML PEN SC SCH ×7 (08:02→20:46)
[2019-03-08 08:08] VITALS: BP 124/58; PULSE 65; RESP 18
[2019-03-08] MEDS: ALBUTEROL/IPRATROPIUM (NEB) 3 ML AMP HHN SCH ×3 (08:24→20:30)
[2019-03-08] MEDS: BUDESONIDE (NEB) 0.5MG/2ML AMP HHN SCH ×2 (08:35→20:30)
[2019-03-08] MEDS: DAKINS 0.0125%(1/40) 473 ML SOLUTION TP SCH (08:41)
[2019-03-08] MEDS: FAMOTIDINE 20 MG TAB PO SCH (08:42)
[2019-03-08] MEDS: FERROUS SULFATE (EC) 325 MG TAB PO SCH (08:42)
[2019-03-08] MEDS: ASPIRIN 81 MG TAB PO SCH (08:43)
[2019-03-08] MEDS: AMLODIPINE 2.5 MG TAB PO SCH (08:43)
[2019-03-08] MEDS: HEPARIN 5,000 UNIT/1 ML VIAL SC SCH ×2 (08:44→20:46)
[2019-03-08] MEDS: GUAIFENESIN/CODEINE 5ML CUP PO PRN (09:52)
--- NOTE | 2019-03-08 11:13 | PN ---
Date/Time of Note Date/Time of Note DATE: 03/08/19 TIME: 11:10 Assessment/Plan VTE Prophylaxis Risk score (from Ns)>0 risk: 5 SCD applied (from Nsg): Yes Pharmacological prophylaxis: heparin Lines/Catheters IV Catheter Type (from Nrsg): Saline Lock Urinary Cath still in place: No Assessment/Plan Hospital Course SUBJECTIVE: No acute overnight episodes OBJECTIVE: Vital signs-see below PHYSICAL EXAM: Constitutional: Adequately built,not in acute distress. HEENT: Head atraumatic and normocephalic. Eyes: Extraocular muscles intact. Anicteric sclerae. Pupils equal bilaterally, reactive to light. NECK: Supple without lymph node. CHEST: Clear and good breath sounds equally. No wheezing. No rhonchi. HEART: S1, S2. Regular rate and rhythm. ABDOMEN: Soft/non tender with no rebound tenderness. Bowel sounds were present. EXTREMITIES: Right foot with Rayo wrap/dressing C/D/I. Left foot with no swelling, normal pulses. NEUROLOGIC: Alert and oriented x3. No focal deficit. No sensory deficit. PSYCHOSOCIAL: No signs of depression. INTEGUMENTARY: No open wounds. ASSESSMENT AND PLAN:74-year-old female with past medical history of coronary artery disease status post most recent PCI December 2017, diabetes, hypertension who presents with right great toe pain/blister formation, found to have gas gangrene of the right foot... Right great toe gas gangrene s/p I&D 02/21 -Continue wound care/antibiotics -Plan for pop bypass-scheduled for Tuesday. Poorly controlled diabetes mellitus -Stable -Continue current basal/bolus/SSC insulin CAD s/p PCI -continue aspirin/statin/beta-blockers -Cardiology consultation appreciated. HTN -cont.BB/ARB Hypothyroidism -Continue Synthroid - will need outpatient repeat thyroid studies in 4-6 weeks Hyperlipidemia - continue statin PAD - Vascular consultation appreciated and plans for fem pop given angiogram findings - aspirin on board Disposition -She is scheduled for femoropopliteal bypass tomorrow. Follow-up vascular recommendation postoperatively. DVT prophylaxis: Heparin Disposition: Pending vascular procedure on Tuesday. Cont. wound care and antibiotics. Patient was seen in collaboration with Dr. Rosas Result Diagram: 03/08/19 0450 03/08/19 0450 Results 24hrs Laboratory Tests Test 03/07/19 12:19 03/07/19 17:47 03/07/19 20:41 03/08/19 04:50 Bedside Glucose 233 H 104 120 White Blood Count 6.1 Red Blood Count 3.80 L Hemoglobin 11.1 L Hematocrit 34.8 L Mean Corpuscular 91.6 Volume Mean Corpuscular 29.2 Hemoglobin Mean Corpuscular 31.9 L Hemoglobin Concent Red Cell 13.8 Distribution Width Platelet Count 256 # Mean Platelet Volume 10.5 H Immature 3.600 H Granulocytes % Neutrophils % 53.8 Lymphocytes % 27.8 Monocytes % 11.2 H Eosinophils % 2.8 Basophils % 0.8 Nucleated Red Blood 0.0 Cells % Immature 0.220 H Granulocytes # Neutrophils # 3.3 Lymphocytes # 1.7 Monocytes # 0.7 Eosinophils # 0.2 Basophils # 0.1 Nucleated Red Blood 0.0 Cells # Prothrombin Time 11.8 L Prothrombin Time 0.9 Ratio INR International 0.86 Normalized Ratio Activated 25.2 Partial Thromboplast Time Sodium Level 138 Potassium Level 3.7 Chloride Level 101 Carbon Dioxide Level 31 Anion Gap 6 Blood Urea Nitrogen 45 H Creatinine 1.26 H Est Glomerular Filtrat Rate mL/min Glucose Level 109 Calcium Level 8.7 Test 03/08/19 07:57 Bedside Glucose 148 Exam/Review of Systems Exam Vitals Vital Signs Date Temp Pulse Resp B/P (MAP) Pulse Ox O2 O2 Flow FiO2 Time Delivery Rate 03/08/19 75 17 95 21 08:26 03/08/19 97.7 124/58 Room Air 08:08 (80) 03/06/19 2.0 08:20 Intake and Output 03/07/19 03/07/19 03/08/19 1515:00 23:00 07:00 IntakeIntake Total 600 ml 290 ml 580 ml BalanceBalance 600 ml 290 ml 580 ml Results Results 24hrs Laboratory Tests Test 03/07/19 12:19 03/07/19 17:47 03/07/19 20:41 03/08/19 04:50 Bedside Glucose 233 H 104 120 White Blood Count 6.1 Red Blood Count 3.80 L Hemoglobin 11.1 L Hematocrit 34.8 L Mean Corpuscular 91.6 Volume Mean Corpuscular 29.2 Hemoglobin Mean Corpuscular 31.9 L Hemoglobin Concent Red Cell 13.8 Distribution Width Platelet Count 256 # Mean Platelet Volume 10.5 H Immature 3.600 H Granulocytes % Neutrophils % 53.8 Lymphocytes % 27.8 Monocytes % 11.2 H Eosinophils % 2.8 Basophils % 0.8 Nucleated Red Blood 0.0 Cells % Immature 0.220 H Granulocytes # Neutrophils # 3.3 Lymphocytes # 1.7 Monocytes # 0.7 Eosinophils # 0.2 Basophils # 0.1 Nucleated Red Blood 0.0 Cells # Prothrombin Time 11.8 L Prothrombin Time 0.9 Ratio INR International 0.86 Normalized Ratio Activated 25.2 Partial Thromboplast Time Sodium Level 138 Potassium Level 3.7 Chloride Level 101 Carbon Dioxide Level 31 Anion Gap 6 Blood Urea Nitrogen 45 H Creatinine 1.26 H Est Glomerular Filtrat Rate mL/min Glucose Level 109 Calcium Level 8.7 Test 03/08/19 07:57 Bedside Glucose 148 Medications Medication Current Medications Ondansetron HCl (Zofran Inj) 4 mg Q6H PRN IV NAUSEA AND/OR VOMITING Last administered on 02/21/19 06:47; Admin Dose 4 MG; Start 02/21/19 at 01:30 Acetaminophen (Tylenol Liquid) 650 mg Q6H PRN PO PAIN LEVEL 1-3 OR FEVER Last administered on 03/06/19 12:16; Admin Dose 650 MG; Start 02/21/19 at 01:30 Acetaminophen/ Hydrocodone Bitart ([place] (5/325)) 1 tab Q6H PRN PO PAIN LEVEL 4-6 Last administered on 03/07/19 14:08; Admin Dose 1 TAB; Start 02/21/19 at 01:30 Morphine Sulfate (morphine) 4 mg Q4H PRN IV SEVERE PAIN LEVEL 7-10 Last administered on 03/03/19 15:28; Admin Dose 4 MG; Start 02/21/19 at 05:30 Atorvastatin Calcium (Lipitor) 40 mg QHS PO Last administered on 03/07/19 20:43; Admin Dose 40 MG; Start 02/21/19 at 21:00 Carvedilol (Coreg) 3.125 mg BID PO Last administered on 03/08/19 08:43; Admin Dose 3.125 MG; Start 02/21/19 at 09:00 Ferrous Sulfate (Ferrous Sulfate (Ec)) 325 mg QAM PO Last administered on 03/08/19 08:42; Admin Dose 325 MG; Start 02/21/19 at 09:00 Miscellaneous Information 1 ea NOTE XX ; Start 02/21/19 at 06:00 Glucose (Glutose) 15 gm Q15M PRN PO DECREASED GLUCOSE; Start 02/21/19 at 06:00 Glucose (Glutose) 22.5 gm Q15M PRN PO DECREASED GLUCOSE; Start 02/21/19 at 06:00 Dextrose (D50w Syringe) 25 ml Q15M PRN IV DECREASED GLUCOSE; Start 02/21/19 at 06:00 Dextrose (D50w Syringe) 50 ml Q15M PRN IV DECREASED GLUCOSE; Start 02/21/19 at 06:00 Glucagon (Glucagen) 1 mg Q15M PRN IM DECREASED GLUCOSE; Start 02/21/19 at 06:00 Glucose (Glutose) 15 gm Q15M PRN BUCCAL DECREASED GLUCOSE; Start 02/21/19 at 06:00 Sodium Hypochlorite (Dakins Diluted ()) 1 applic DAILY TP Last administered on 03/07/19at 08:11; Admin Dose 1 APPLIC; Start 02/22/19 at 09:00 Aspirin (Aspirin) 81 mg DAILY PO Last administered on 03/08/19at 08:43; Admin Dose 81 MG; Start 02/22/19 at 14:30 Heparin Sodium (Porcine) (Heparin (5000 Units/1ml)) 5,000 unit BID SC Last administered on 03/08/19at 08:44; Admin Dose 5,000 UNIT; Start 02/24/19 at 21:00 Levothyroxine Sodium (Synthroid) 150 mcg BEFORE BREAKFAST PO Last administered on 03/08/19at 08:00; Admin Dose 150 MCG; Start 02/25/19 at 07:00 Polyethylene Glycol (Miralax) 17 gm DAILY PRN PO CONSTIPATION Last administered on 02/26/19at 21:05; Admin Dose 17 GM; Start 02/25/19 at 10:00 Senna/Docusate Sodium (Senokot-S) 1 tab BID PRN PO constipation; Start 02/25/19 at 10:00 Bisacodyl (Dulcolax Supp) 10 mg DAILY PRN [place] CONSTIPATION; Start 02/25/19 at 10:00 Albuterol/ Ipratropium (Duoneb) 3 ml Q6HWA RESP THERAPY HHN Last administered on 03/08/19at 08:24; Admin Dose 3 ML; Start 02/26/19 at 20:00 Albuterol/ Ipratropium (Duoneb) 3 ml Q2H RESP THERAPY PRN HHN shortness of breath Last administered on 02/26/19 16:13; Admin Dose 3 ML; Start 02/26/19 at 15:00 Budesonide (Pulmicort (Neb)) 0.5 mg BID RESP THERAPY HHN Last administered on 03/07/19 09:21; Admin Dose 0.5 MG; Start 02/26/19 at 20:00 Famotidine (Pepcid) 20 mg DAILY PO Last administered on 03/08/19 08:42; Admin Dose 20 MG; Start 02/27/19 at 09:00 Guaifenesin/ Codeine Phosphate (Robitussin Ac Liquid Cup) 5 ml Q4H PRN PO cough Last administered on 03/08/19 09:52; Admin Dose 5 ML; Start 03/01/19 at 10:30 Levofloxacin (Levaquin) 500 mg DAILY@06 PO Last administered on 03/08/19 06:20; Admin Dose 500 MG; Start 03/03/19 at 06:00 Ampicillin 50 ml @ 100 mls/hr Q8 IVPB Last administered on 03/08/19 06:21; Admin Dose 100 MLS/HR; Start 03/02/19 at 22:00 Amlodipine Besylate (Norvasc) 10 mg DAILY PO Last administered on 03/08/19 08:43; Admin Dose 10 MG; Start 03/05/19 at 09:00 Diagnostic Test (Pha) (Accu-Chek) 1 ea 02 XX ; Start 03/05/19 at 02:00 Losartan Potassium (Cozaar) 50 mg QPM PO Last administered on 03/07/19 20:43; Admin Dose 50 MG; Start 03/05/19 at 21:00 Insulin Aspart (Novolog Insulin Pen) 10 unit WITH MEALS SC Last administered on 03/08/19 08:03; Admin Dose 10 UNIT; Start 03/05/19 at 11:30 Insulin Glargine (Lantus) 30 units DAILY@2000 SC Last administered on 03/07/19 20:47; Admin Dose 30 UNITS; Start 03/05/19 at 20:00 Insulin Aspart (Novolog Insulin Pen) NOVOLOG *MILD* ALGORITHM WITH MEALS B EDTIME SC Last administered on 03/08/19at 08:02; Admin Dose 1 UNIT; Start 03/05/19 at 12:00 Hydralazine HCl (Apresoline) 10 mg Q6H PRN IV SBP>160; Start 03/05/19 at 11:00 JONH ALVARADO NP Mar 08, 2019 11:13
--- NOTE | 2019-03-08 11:53 | CONS ---
Assessment/Plan Assessment/Plan Hospital Course (Demo Recall) All noted, no acute events Antimicrobials: Levaquin, ampicillin Microbiology right foot wound culture grew REAL and enterococcus species CT chest revealed pulmonary edema Physical examination: Obese well-developed fragile elderly woman who is alert in no distress. Head atraumatic normocephalic sclera nonicteric neck is supple chest rise symmetrical breath sounds clear heart: S1-S2. Abdomen soft bowel sounds present. Extremities without cyanosis, right foot dressing intact Assessment: 1. Right foot cellulitis with toe gangrene 2. Peripheral arterial disease status post abdominal aortogram with right popliteal artery angioplasty 02/23/19 3. Diabetes 4. PNA vs CHF Plan: Remains stable, continue antibiotics, for revascularization procedure on Tuesday, after that she will require surgical procedure by podiatry Consultation Date/Type/Reason Admit Date/Time February 20, 2019 at 23:53 Initial Consult Date Type of Consult id Date/Time of Note DATE: 03/08/19 TIME: 11:52 Exam/Review of Systems Exam Vitals Vital Signs Date Temp Pulse Resp B/P (MAP) Pulse Ox O2 O2 Flow FiO2 Time Delivery Rate 03/08/19 75 17 95 21 08:26 03/08/19 97.7 124/58 Room Air 08:08 (80) 03/06/19 2.0 08:20 Intake and Output 03/07/19 03/07/19 03/08/19 1515:00 23:00 07:00 IntakeIntake Total 600 ml 290 ml 580 ml BalanceBalance 600 ml 290 ml 580 ml Results Result Diagram: 03/08/19 0450 03/08/19 0450 Results 24hrs Laboratory Tests Test 03/07/19 12:19 03/07/19 17:47 03/07/19 20:41 03/08/19 04:50 Bedside Glucose 233 H 104 120 White Blood Count 6.1 Red Blood Count 3.80 L Hemoglobin 11.1 L Hematocrit 34.8 L Mean Corpuscular 91.6 Volume Mean Corpuscular 29.2 Hemoglobin Mean Corpuscular 31.9 L Hemoglobin Concent Red Cell 13.8 Distribution Width Platelet Count 256 # Mean Platelet Volume 10.5 H Immature 3.600 H Granulocytes % Neutrophils % 53.8 Lymphocytes % 27.8 Monocytes % 11.2 H Eosinophils % 2.8 Basophils % 0.8 Nucleated Red Blood 0.0 Cells % Immature 0.220 H Granulocytes # Neutrophils # 3.3 Lymphocytes # 1.7 Monocytes # 0.7 Eosinophils # 0.2 Basophils # 0.1 Nucleated Red Blood 0.0 Cells # Prothrombin Time 11.8 L Prothrombin Time 0.9 Ratio INR International 0.86 Normalized Ratio Activated 25.2 Partial Thromboplast Time Sodium Level 138 Potassium Level 3.7 Chloride Level 101 Carbon Dioxide Level 31 Anion Gap 6 Blood Urea Nitrogen 45 H Creatinine 1.26 H Est Glomerular Filtrat Rate mL/min Glucose Level 109 Calcium Level 8.7 Test 03/08/19 07:57 Bedside Glucose 148 Medications Medication Current Medications Ondansetron HCl (Zofran Inj) 4 mg Q6H PRN IV NAUSEA AND/OR VOMITING Last administered on 02/21/19 06:47; Admin Dose 4 MG; Start 02/21/19 at 01:30 Acetaminophen (Tylenol Liquid) 650 mg Q6H PRN PO PAIN LEVEL 1-3 OR FEVER Last administered on 03/06/19 12:16; Admin Dose 650 MG; Start 02/21/19 at 01:30 Acetaminophen/ Hydrocodone Bitart ([place] (5/325)) 1 tab Q6H PRN PO PAIN LEVEL 4-6 Last administered on 03/07/19 14:08; Admin Dose 1 TAB; Start 02/21/19 at 01:30 Morphine Sulfate (morphine) 4 mg Q4H PRN IV SEVERE PAIN LEVEL 7-10 Last administered on 03/03/19 15:28; Admin Dose 4 MG; Start 02/21/19 at 05:30 Atorvastatin Calcium (Lipitor) 40 mg QHS PO Last administered on 03/07/19 20:43; Admin Dose 40 MG; Start 02/21/19 at 21:00 Carvedilol (Coreg) 3.125 mg BID PO Last administered on 03/08/19 08:43; Admin Dose 3.125 MG; Start 02/21/19 at 09:00 Ferrous Sulfate (Ferrous Sulfate (Ec)) 325 mg QAM PO Last administered on 03/08/19 08:42; Admin Dose 325 MG; Start 02/21/19 at 09:00 Miscellaneous Information 1 ea NOTE XX ; Start 02/21/19 at 06:00 Glucose (Glutose) 15 gm Q15M PRN PO DECREASED GLUCOSE; Start 02/21/19 at 06:00 Glucose (Glutose) 22.5 gm Q15M PRN PO DECREASED GLUCOSE; Start 02/21/19 at 06:00 Dextrose (D50w Syringe) 25 ml Q15M PRN IV DECREASED GLUCOSE; Start 02/21/19 at 06:00 Dextrose (D50w Syringe) 50 ml Q15M PRN IV DECREASED GLUCOSE; Start 02/21/19 at 06:00 Glucagon (Glucagen) 1 mg Q15M PRN IM DECREASED GLUCOSE; Start 02/21/19 at 06:00 Glucose (Glutose) 15 gm Q15M PRN BUCCAL DECREASED GLUCOSE; Start 02/21/19 at 06:00 Sodium Hypochlorite (Dakins Diluted ()) 1 applic DAILY TP Last administered on 03/07/19at 08:11; Admin Dose 1 APPLIC; Start 02/22/19 at 09:00 Aspirin (Aspirin) 81 mg DAILY PO Last administered on 03/08/19at 08:43; Admin Dose 81 MG; Start 02/22/19 at 14:30 Heparin Sodium (Porcine) (Heparin (5000 Units/1ml)) 5,000 unit BID SC Last administered on 03/08/19at 08:44; Admin Dose 5,000 UNIT; Start 02/24/19 at 21:00 Levothyroxine Sodium (Synthroid) 150 mcg BEFORE BREAKFAST PO Last administered on 03/08/19at 08:00; Admin Dose 150 MCG; Start 02/25/19 at 07:00 Polyethylene Glycol (Miralax) 17 gm DAILY PRN PO CONSTIPATION Last administered on 02/26/19at 21:05; Admin Dose 17 GM; Start 02/25/19 at 10:00 Senna/Docusate Sodium (Senokot-S) 1 tab BID PRN PO constipation; Start 02/25/19 at 10:00 Bisacodyl (Dulcolax Supp) 10 mg DAILY PRN [place] CONSTIPATION; Start 02/25/19 at 10:00 Albuterol/ Ipratropium (Duoneb) 3 ml Q6HWA RESP THERAPY HHN Last administered on 03/08/19at 08:24; Admin Dose 3 ML; Start 02/26/19 at 20:00 Albuterol/ Ipratropium (Duoneb) 3 ml Q2H RESP THERAPY PRN HHN shortness of breath Last administered on 02/26/19 16:13; Admin Dose 3 ML; Start 02/26/19 at 15:00 Budesonide (Pulmicort (Neb)) 0.5 mg BID RESP THERAPY HHN Last administered on 03/07/19 09:21; Admin Dose 0.5 MG; Start 02/26/19 at 20:00 Famotidine (Pepcid) 20 mg DAILY PO Last administered on 03/08/19 08:42; Admin Dose 20 MG; Start 02/27/19 at 09:00 Guaifenesin/ Codeine Phosphate (Robitussin Ac Liquid Cup) 5 ml Q4H PRN PO cough Last administered on 03/08/19 09:52; Admin Dose 5 ML; Start 03/01/19 at 10:30 Levofloxacin (Levaquin) 500 mg DAILY@06 PO Last administered on 03/08/19 06:20; Admin Dose 500 MG; Start 03/03/19 at 06:00 Ampicillin 50 ml @ 100 mls/hr Q8 IVPB Last administered on 03/08/19 06:21; Admin Dose 100 MLS/HR; Start 03/02/19 at 22:00 Amlodipine Besylate (Norvasc) 10 mg DAILY PO Last administered on 03/08/19 08:43; Admin Dose 10 MG; Start 03/05/19 at 09:00 Diagnostic Test (Pha) (Accu-Chek) 1 ea 02 XX ; Start 03/05/19 at 02:00 Losartan Potassium (Cozaar) 50 mg QPM PO Last administered on 03/07/19 20:43; Admin Dose 50 MG; Start 03/05/19 at 21:00 Insulin Aspart (Novolog Insulin Pen) 10 unit WITH MEALS SC Last administered on 03/08/19 08:03; Admin Dose 10 UNIT; Start 03/05/19 at 11:30 Insulin Glargine (Lantus) 30 units DAILY@2000 SC Last administered on 03/07/19 20:47; Admin Dose 30 UNITS; Start 03/05/19 at 20:00 Insulin Aspart (Novolog Insulin Pen) NOVOLOG *MILD* ALGORITHM WITH MEALS BEDTIM E SC Last administered on 03/08/19 08:02; Admin Dose 1 UNIT; Start 03/05/19 at 12:00 Hydralazine HCl (Apresoline) 10 mg Q6H PRN IV SBP>160; Start 03/05/19 at 11:00 TORI GARCIA NP Mar 08, 2019 11:53
[2019-03-08 14:00] VITALS: BP 110/58; PULSE 67; RESP 18
--- NOTE | 2019-03-08 14:39 | PREAC ---
Date/Time of Note Date/Time of Note DATE: 03/08/19 TIME: 14:38 Anesthesia Eval and Record Evaluation Time Pre-Procedure Interview DATE: 03/08/19 TIME: 14:38 Age 74 Sex female NPO: 8 hrs Preoperative diagnosis Peripheral arterial disease Planned procedure LEFT POPLITEAL TO DORSALIS PEDIS BYPASS Past Medical History Past Medical History: Includes Cardio: HTN, Dyslipidemia, CAD Endo: Diabetes, Hypothyroid GI: Obesity Surgery & Anesthesia Issues No known issue Meds Anticoagulation: No Beta Noris within 24 hr: No Reason Beta Noris not given: Pt. not on B-Noris Active Scripts Ibuprofen* (Motrin*) 800 Mg Tab, 800 MG PO Q6H PRN for PAIN AND OR ELEVATED TEMP, #30 TAB Prov:SOPHIE PICHARDO MD 01/15/18 Reported Medications Insulin Lispro (Humalog) 100 Unit/1 Ml Cartridge, 4 UNIT SQ QAM, EA 02/21/19 Amlodipine Besylate* (Amlodipine Besylate*) 10 Mg Tablet, 10 MG PO DAILY, #30 TAB 02/21/19 Losartan Potassium* (Losartan Potassium*) 50 Mg Tablet, 50 MG PO QPM, TAB 02/21/19 Docusate Sodium* (Docusate Sodium*) 100 Mg Capsule, 100 MG PO DAILY, #30 CAP 02/21/19 Levothyroxine Sodium* (Levothyroxine Sodium*) 137 Mcg Tablet, 137 MCG PO BEFORE BREAKFAST, #30 TAB 02/21/19 Ferrous Sulfate* (Ferrous Sulfate*) 325 Mg Tabec, 325 MG PO QAM, TAB 02/21/19 Montelukast Sodium* (Montelukast Sodium*) 10 Mg Tablet, 10 MG PO QHS, #30 TAB 02/21/19 Cholecalciferol (Vitamin D3) (Vitamin D3) 2,000 Unit Tab.chew, 2000 UNIT PO QPM, TAB.CHEW 02/21/19 Carvedilol* (Carvedilol*) 3.125 Mg Tablet, 3.125 MG PO BID for 90 Days, #180 TK 1 TAB PO BID 02/21/19 Insulin Glargine* (Lantus*) 100 Unit/Ml Soln, 53 UNITS SQ QHS ADM 53 UNI SC HS 02/21/19 Atorvastatin* (Atorvastatin*) 40 Mg Tablet, 40 MG PO QHS for 90 Days, #90 TK 1 T PO QD 02/21/19 Current Medications Ondansetron HCl (Zofran Inj) 4 mg Q6H PRN IV NAUSEA AND/OR VOMITING Last administered on 02/21/19at 06:47; Admin Dose 4 MG; Start 02/21/19 at 01:30 Acetaminophen (Tylenol Liquid) 650 mg Q6H PRN PO PAIN LEVEL 1-3 OR FEVER Last administered on 03/06/19 12:16; Admin Dose 650 MG; Start 02/21/19 at 01:30 Acetaminophen/ Hydrocodone Bitart ([place] (5/325)) 1 tab Q6H PRN PO PAIN LEVEL 4-6 Last administered on 03/07/19 14:08; Admin Dose 1 TAB; Start 02/21/19 at 01:30 Morphine Sulfate (morphine) 4 mg Q4H PRN IV SEVERE PAIN LEVEL 7-10 Last administered on 03/03/19 15:28; Admin Dose 4 MG; Start 02/21/19 at 05:30 Atorvastatin Calcium (Lipitor) 40 mg QHS PO Last administered on 03/07/19at 20:43; Admin Dose 40 MG; Start 02/21/19 at 21:00 Carvedilol (Coreg) 3.125 mg BID PO Last administered on 03/08/19 08:43; Admin Dose 3.125 MG; Start 02/21/19 at 09:00 Ferrous Sulfate (Ferrous Sulfate (Ec)) 325 mg QAM PO Last administered on 03/08/19 08:42; Admin Dose 325 MG; Start 02/21/19 at 09:00 Miscellaneous Information 1 ea NOTE XX ; Start 02/21/19 at 06:00 Glucose (Glutose) 15 gm Q15M PRN PO DECREASED GLUCOSE; Start 02/21/19 at 06:00 Glucose (Glutose) 22.5 gm Q15M PRN PO DECREASED GLUCOSE; Start 02/21/19 at 06:00 Dextrose (D50w Syringe) 25 ml Q15M PRN IV DECREASED GLUCOSE; Start 02/21/19 at 06:00 Dextrose (D50w Syringe) 50 ml Q15M PRN IV DECREASED GLUCOSE; Start 02/21/19 at 06:00 Glucagon (Glucagen) 1 mg Q15M PRN IM DECREASED GLUCOSE; Start 02/21/19 at 06:00 Glucose (Glutose) 15 gm Q15M PRN BUCCAL DECREASED GLUCOSE; Start 02/21/19 at 06:00 Sodium Hypochlorite (Dakins Diluted ()) 1 applic DAILY TP Last administered on 03/07/19 08:11; Admin Dose 1 APPLIC; Start 02/22/19 at 09:00 Aspirin (Aspirin) 81 mg DAILY PO Last administered on 03/08/19 08:43; Admin Dose 81 MG; Start 02/22/19 at 14:30 Heparin Sodium (Porcine) (Heparin (5000 Units/1ml)) 5,000 unit BID SC Last administered on 03/08/19 08:44; Admin Dose 5,000 UNIT; Start 02/24/19 at 21:00 Levothyroxine Sodium (Synthroid) 150 mcg BEFORE BREAKFAST PO Last administered on 03/08/19 08:00; Admin Dose 150 MCG; Start 02/25/19 at 07:00 Polyethylene Glycol (Miralax) 17 gm DAILY PRN PO CONSTIPATION Last administered on 02/26/19 21:05; Admin Dose 17 GM; Start 02/25/19 at 10:00 Senna/Docusate Sodium (Senokot-S) 1 tab BID PRN PO constipation; Start 02/25/19 at 10:00 Bisacodyl (Dulcolax Supp) 10 mg DAILY PRN SC CONSTIPATION; Start 02/25/19 at 10:00 Albuterol/ Ipratropium (Duoneb) 3 ml Q6HWA RESP THERAPY HHN Last administered on 03/08/19 08:24; Admin Dose 3 ML; Start 02/26/19 at 20:00 Albuterol/ Ipratropium (Duoneb) 3 ml Q2H RESP THERAPY PRN HHN shortness of breath Last administered on 02/26/19 16:13; Admin Dose 3 ML; Start 02/26/19 at 15:00 Budesonide (Pulmicort (Neb)) 0.5 mg BID RESP THERAPY HHN Last administered on 03/07/19 09:21; Admin Dose 0.5 MG; Start 02/26/19 at 20:00 Famotidine (Pepcid) 20 mg DAILY PO Last administered on 03/08/19 08:42; Admin Dose 20 MG; Start 02/27/19 at 09:00 Guaifenesin/ Codeine Phosphate (Robitussin Ac Liquid Cup) 5 ml Q4H PRN PO cough Last administered on 03/08/19 09:52; Admin Dose 5 ML; Start 03/01/19 at 10:30 Ampicillin 50 ml @ 100 mls/hr Q8 IVPB Last administered on 03/08/19 14:36; Admin Dose 100 MLS/HR; Start 03/02/19 at 22:00 Amlodipine Besylate (Norvasc) 10 mg DAILY PO Last administered on 03/08/19 08:43; Admin Dose 10 MG; Start 03/05/19 at 09:00 Diagnostic Test (Pha) (Accu-Chek) 1 ea 02 XX ; Start 03/05/19 at 02:00 Losartan Potassium (Cozaar) 50 mg QPM PO Last administered on 03/07/19 20:43; Admin Dose 50 MG; Start 03/05/19 at 21:00 Insulin Aspart (Novolog Insulin Pen) 10 unit WITH MEALS SC Last administered on 03/08/19 12:23; Admin Dose 10 UNIT; Start 03/05/19 at 11:30 Insulin Glargine (Lantus) 30 units DAILY@2000 SC Last administered on 03/07/19 20:47; Admin Dose 30 UNITS; Start 03/05/19 at 20:00 Insulin Aspart (Novolog Insulin Pen) NOVOLOG *MILD* ALGORITHM WITH MEALS BEDTIME SC Last administered on 03/08/19 12:21; Admin Dose 2 UNIT; Start 03/05/19 at 12:00 Hydralazine HCl (Apresoline) 10 mg Q6H PRN IV SBP>160; Start 03/05/19 at 11:00 Levofloxacin (Levaquin) 250 mg DAILY@06 PO ; Start 03/09/19 at 06:00 Meds reviewed: Yes Allergies Coded Allergies: No Known Allergy (Unverified , 02/21/19) Allergies Reviewed: Yes Labs/Studies Labs Reviewed: Reviewed by anesthesiologist Result Diagram: 03/08/1944903/08/19 045 Laboratory Tests 03/08/19 04:50 test: N/A Studies: ECG, CXR (Discoid atelectasis/infiltrates in the right lung base are similar in appearance.), 2D Echo (EF 60%) Pre-procedure Exam Last vitals Vital Signs Date Temp Pulse Resp B/P (MAP) Pulse Ox O2 O2 Flow FiO2 Time Delivery Rate 03/08/19 75 17 95 21 08:26 03/08/19 97.7 124/58 Room Air 08:08 (80) 03/06/19 2.0 08:20 Airway: Adequate mouth opening Mallampati: Mallampati II Teeth: Normal Lung: Normal Heart: Normal ASA Physical Status ASA physical status: 3 Emergency: None Planned Anesthetic General/MAC: ETT Pre-operative Attestations Prior to commencing anesthesia and surgery, the patient was re-evaluated, there was verification of: *The patient's identity *The results of appropriate recent lab work and preoperative vital signs *The above evaluation not changing prior to induction *Anesthetic plan, risk benefits, alternative and complications discussed with patient/family; questions answered; patient/family understands, accepts and wishes to proceed. BROOK MORRISSEY Mar 08, 2019 14:39
[2019-03-08 20:00] VITALS: BP 103/53; PULSE 69; RESP 18
[2019-03-08] MEDS: ATORVASTATIN 40 MG TAB PO SCH (20:43)
[2019-03-08] MEDS: LOSARTAN 50 MG TAB PO SCH (20:44)
[2019-03-08] MEDS: INSULIN GLARGINE [LANTus] (100 UNITS/ML) SYG SC SCH (20:46)
[2019-03-08] MEDS: HYDROCODONE/APAP (5/325) TAB PO PRN (20:47)
[2019-03-09] VITALS (73 sets, daily range): BP systolic 99–172; BP diastolic 50–85; PULSE 60–100; RESP 15–31
[2019-03-09] MEDS ORDERED: DEXTROSE 5%-0.45% NACL 1,000 ML IV SCH (00:30)
[2019-03-09] MEDS: INSULIN ASPART [NOVOLOG] 3 ML PEN SC SCH ×9 (00:48→21:17)
[2019-03-09] MEDS: ACCU-CHEK XX SCH (02:00)
[2019-03-09] MEDS: LEVOFLOXACIN 250 MG TAB PO SCH (05:22)
[2019-03-09] MEDS: AMPICILLIN 1 GM/NS (PMX) 50 ML IVPB SCH ×3 (05:23→21:52)
--- NOTE | 2019-03-09 06:55 | HPN ---
Date/Time of Note Date/Time of Note DATE: 03/09/19 TIME: 06:55 Interval H&P Admission Note Pt. seen H&P reviewed: No system changes ALVIN ENG MD Mar 09, 2019 06:55
[2019-03-09] MEDS: LEVOTHYROXINE 150 MCG TAB PO SCH (07:00)
[2019-03-09] MEDS ORDERED: THROMBIN 5000 UNIT VIAL ONE (07:53)
[2019-03-09] MEDS ORDERED: GELATIN SIZE 100 SPONGE ONE (07:53)
[2019-03-09] MEDS ORDERED: HEPARIN 1000 UNITS/ML 10 ML INJ ONE ×2 (07:53→10:29)
[2019-03-09] MEDS: ALBUTEROL/IPRATROPIUM (NEB) 3 ML AMP HHN SCH ×3 (08:00→20:13)
[2019-03-09] MEDS: BUDESONIDE (NEB) 0.5MG/2ML AMP HHN SCH ×2 (08:12→20:13)
[2019-03-09] MEDS ORDERED: MIDAZOLAM 1 MG/ML 2 ML INJ ONE (08:13)
[2019-03-09] MEDS ORDERED: FENTAnyl 50 MCG/ML VIAL ONE ×3 (08:13→10:30)
[2019-03-09] MEDS: FAMOTIDINE 20 MG TAB PO SCH (08:29)
[2019-03-09] MEDS: ASPIRIN 81 MG TAB PO SCH (08:29)
[2019-03-09] MEDS: FERROUS SULFATE (EC) 325 MG TAB PO SCH (08:29)
[2019-03-09] MEDS: AMLODIPINE 2.5 MG TAB PO SCH (08:29)
[2019-03-09] MEDS: HEPARIN 5,000 UNIT/1 ML VIAL SC SCH (08:29)
[2019-03-09] MEDS: DAKINS 0.0125%(1/40) 473 ML SOLUTION TP SCH (08:30)
[2019-03-09] MEDS ORDERED: LIDOCAINE 2% (SDV) 5 ML INJ ONE (11:53)
[2019-03-09] MEDS ORDERED: ETOMIDATE 20 MG INJ ONE (11:53)
[2019-03-09] MEDS ORDERED: ROCURONIUM 50 MG INJ ONE (11:54)
[2019-03-09] MEDS ORDERED: ONDANSETRON 4 MG INJ ONE (11:55)
[2019-03-09] MEDS ORDERED: CEFAZOLIN 1 GM INJ ONE (11:55)
--- NOTE | 2019-03-09 11:59 | SIPON ---
Date/Time of Note Date/Time of Note DATE: 03/09/19 TIME: 11:58 Operative Report Preoperative Diagnosis R 1st toe gangrene Postoperative Diagnosis same Operation/Procedure Performed R pop-DP bypass using non reversed greater saphenous vein from the thigh Surgeon see signature line assistant store manager CITLALI Naik Anesthesia: general Estimated blood loss: 100 - 150 ml's Transfusion Required none Specimen none Grafts/Implants none Complications none ALVIN ENG MD Mar 09, 2019 11:59
--- NOTE | 2019-03-09 12:17 | CONS ---
Assessment/Plan Assessment/Plan Hospital Course (Demo Recall) All noted, no acute events Antimicrobials: Levaquin, ampicillin Microbiology right foot wound culture grew REAL and enterococcus species CT chest revealed pulmonary edema Physical examination: Obese well-developed fragile elderly woman who is alert in no distress. Head atraumatic normocephalic sclera nonicteric neck is supple chest rise symmetrical breath sounds clear heart: S1-S2. Abdomen soft bowel sounds present. Extremities without cyanosis, right foot dressing intact Assessment: 1. Right foot cellulitis with toe gangrene 2. Peripheral arterial disease status post abdominal aortogram with right popliteal artery angioplasty 02/23/19 3. Diabetes 4. PNA vs CHF Plan: Stable, continue antibiotics, revascularization procedure today Consultation Date/Type/Reason Admit Date/Time February 20, 2019 at 23:53 Initial Consult Date Type of Consult id Date/Time of Note DATE: 03/09/19 TIME: 12:16 Exam/Review of Systems Exam Vitals Vital Signs Date Temp Pulse Resp B/P (MAP) Pulse Ox O2 O2 Flow FiO2 Time Delivery Rate 03/09/19 98.1 60 18 139/61 96 Room Air 06:37 (87) 03/08/19 21 20:30 03/06/19 2.0 08:20 Intake and Output 03/08/19 03/08/19 03/09/19 1515:00 23:00 07:00 IntakeIntake Total 900 ml 150 ml 550 ml BalanceBalance 900 ml 150 ml 550 ml Results Result Diagram: 03/08/19 0450 03/08/19 0450 Results 24hrs Laboratory Tests Test 03/08/19 12:19 03/08/19 17:37 03/08/19 20:38 03/09/19 00:40 Bedside Glucose 195 113 187 103 Test 03/09/19 05:21 Bedside Glucose 107 Medications Medication Current Medications Ondansetron HCl (Zofran Inj) 4 mg Q6H PRN IV NAUSEA AND/OR VOMITING Last administered on 02/21/19at 06:47; Admin Dose 4 MG; Start 02/21/19 at 01:30 Acetaminophen (Tylenol Liquid) 650 mg Q6H PRN PO PAIN LEVEL 1-3 OR FEVER Last administered on 03/06/19at 12:16; Admin Dose 650 MG; Start 02/21/19 at 01:30 Acetaminophen/ Hydrocodone Bitart ([place] (5/325)) 1 tab Q6H PRN PO PAIN LEVEL 4-6 Last administered on 03/08/19 20:47; Admin Dose 1 TAB; Start 02/21/19 at 01:30 Morphine Sulfate (morphine) 4 mg Q4H PRN IV SEVERE PAIN LEVEL 7-10 Last administered on 03/03/19 15:28; Admin Dose 4 MG; Start 02/21/19 at 05:30 Atorvastatin Calcium (Lipitor) 40 mg QHS PO Last administered on 03/08/19 20:43; Admin Dose 40 MG; Start 02/21/19 at 21:00 Carvedilol (Coreg) 3.125 mg BID PO Last administered on 03/08/19 08:43; Admin Dose 3.125 MG; Start 02/21/19 at 09:00 Ferrous Sulfate (Ferrous Sulfate (Ec)) 325 mg QAM PO Last administered on 03/08/19 08:42; Admin Dose 325 MG; Start 02/21/19 at 09:00 Miscellaneous Information 1 ea NOTE XX ; Start 02/21/19 at 06:00 Glucose (Glutose) 15 gm Q15M PRN PO DECREASED GLUCOSE; Start 02/21/19 at 06:00 Glucose (Glutose) 22.5 gm Q15M PRN PO DECREASED GLUCOSE; Start 02/21/19 at 06:00 Dextrose (D50w Syringe) 25 ml Q15M PRN IV DECREASED GLUCOSE; Start 02/21/19 at 06:00 Dextrose (D50w Syringe) 50 ml Q15M PRN IV DECREASED GLUCOSE; Start 02/21/19 at 06:00 Glucagon (Glucagen) 1 mg Q15M PRN IM DECREASED GLUCOSE; Start 02/21/19 at 06:00 Glucose (Glutose) 15 gm Q15M PRN BUCCAL DECREASED GLUCOSE; Start 02/21/19 at 06:00 Sodium Hypochlorite (Dakins Diluted (40)) 1 applic DAILY TP Last administered on 03/07/19 08:11; Admin Dose 1 APPLIC; Start 02/22/19 at 09:00 Aspirin (Aspirin) 81 mg DAILY PO Last administered on 03/08/19 08:43; Admin Dose 81 MG; Start 02/22/19 at 14:30 Heparin Sodium (Porcine) (Heparin (5000 Units/1ml)) 5,000 unit BID SC Last administered on 03/08/19 20:46; Admin Dose 5,000 UNIT; Start 02/24/19 at 21:00 Levothyroxine Sodium (Synthroid) 150 mcg BEFORE BREAKFAST PO Last administered on 03/08/19 08:00; Admin Dose 150 MCG; Start 02/25/19 at 07:00 Polyethylene Glycol (Miralax) 17 gm DAILY PRN PO CONSTIPATION Last administered on 02/26/19 21:05; Admin Dose 17 GM; Start 02/25/19 at 10:00 Senna/Docusate Sodium (Senokot-S) 1 tab BID PRN PO constipation; Start 02/25/19 at 10:00 Bisacodyl (Dulcolax Supp) 10 mg DAILY PRN SD CONSTIPATION; Start 02/25/19 at 10:00 Albuterol/ Ipratropium (Duoneb) 3 ml Q6HWA RESP THERAPY HHN Last administered on 03/08/19 08:24; Admin Dose 3 ML; Start 02/26/19 at 20:00 Albuterol/ Ipratropium (Duoneb) 3 ml Q2H RESP THERAPY PRN HHN shortness of breath Last administered on 02/26/19 16:13; Admin Dose 3 ML; Start 02/26/19 at 15:00 Budesonide (Pulmicort (Neb)) 0.5 mg BID RESP THERAPY HHN Last administered on 03/07/19 09:21; Admin Dose 0.5 MG; Start 02/26/19 at 20:00 Famotidine (Pepcid) 20 mg DAILY PO Last administered on 03/08/19 08:42; Admin Dose 20 MG; Start 02/27/19 at 09:00 Guaifenesin/ Codeine Phosphate (Robitussin Ac Liquid Cup) 5 ml Q4H PRN PO cough Last administered on 03/08/19 09:52; Admin Dose 5 ML; Start 03/01/19 at 10:30 Ampicillin 50 ml @ 100 mls/hr Q8 IVPB Last administered on 03/09/19 05:23; Admin Dose 100 MLS/HR; Start 03/02/19 at 22:00 Amlodipine Besylate (Norvasc) 10 mg DAILY PO Last administered on 03/08/19 08:43; Admin Dose 10 MG; Start 03/05/19 at 09:00 Diagnostic Test (Pha) (Accu-Chek) 1 ea 02 XX ; Start 03/05/19 at 02:00 Losartan Potassium (Cozaar) 50 mg QPM PO Last administered on 03/08/19at 20:44; Admin Dose 50 MG; Start 03/05/19 at 21:00 Insulin Aspart (Novolog Insulin Pen) 10 unit WITH MEALS SC Last administered on 03/08/19at 17:40; Admin Dose 10 UNIT; Start 03/05/19 at 11:30 Insulin Glargine (Lantus) 30 units DAILY@2000 SC Last administered on 03/08/19at 20:46; Admin Dose 30 UNITS; Start 03/05/19 at 20:00 Hydralazine HCl (Apresoline) 10 mg Q6H PRN IV SBP>160; Start 03/05/19 at 11:00 Levofloxacin (Levaquin) 250 mg DAILY@06 PO ; Start 03/09/19 at 06:00 Dextrose/Sodium Chloride 1,000 ml @ 60 mls/hr [id number] IV Last administered on 03/09/19at 00:40; Admin Dose 60 MLS/HR; Start 03/09/19 at 00:30 Insulin Aspart (Novolog Insulin Pen) NOVOLOG *MILD* ALGORI... Q4 SC ; Start 03/09/19 at 01:00 Nicardipine HCl 50 mg/Sodium Chloride 500 ml @ 50 mls/hr TITRATE IV ; Start 03/09/19 at 12:00; Status TORI RAYO NP Mar 09, 2019 12:17
--- NOTE | 2019-03-09 12:19 | PAC ---
Date/Time of Note Date/Time of Note DATE: 03/09/19 TIME: 12:18 Post-Anesthesia Notes Post-Anesthesia Note Last documented vital signs Vital Signs Date Temp Pulse Resp B/P (MAP) Pulse Ox O2 O2 Flow FiO2 Time Delivery Rate 03/09/19 98.1 60 18 139/61 96 Room Air 06:37 (87) 03/08/19 21 20:30 03/06/19 2.0 08:20 Activity: WNL Respiratory function: WNL Cardiovascular function: WNL Mental status: Baseline Pain reasonably controlled: Yes Hydration appropriate: Yes Nausea/Vomiting absent: Yes Comments 154/67, P:77, Spo2:100%, T:98,8 LUKE SHEPPARD MD Mar 09, 2019 12:19
[2019-03-09] MEDS ORDERED: HYDROmorphONE 1 MG/5 ML IV SYRINGE IV PRN ×2 (12:30)
[2019-03-09] MEDS ORDERED: DIPHENHYDRAMINE 50 MG INJ IV PRN (12:30)
[2019-03-09] MEDS ORDERED: METOCLOPRAMIDE 10 MG INJ IV PRN (12:30)
[2019-03-09] MEDS ORDERED: hydrALAzine 20 MG INJ IV PRN (12:30)
[2019-03-09] MEDS ORDERED: ONDANSETRON 4 MG INJ IV PRN (12:30)
[2019-03-09] MEDS ORDERED: LABETALOL HCL 20MG INJ IV PRN (12:30)
[2019-03-09] MEDS ORDERED: FENTAnyl 50 MCG/ML VIAL IV PRN (12:30)
[2019-03-09] MEDS ORDERED: MEPERIDINE 25 MG INJ IV PRN (12:30)
--- NOTE | 2019-03-09 13:04 | OPR ---
DATE OF OPERATION: 03/09/2019 PREOPERATIVE DIAGNOSIS: Right foot gangrene. POSTOPERATIVE DIAGNOSIS: Right foot gangrene. PROCEDURE PERFORMED: Right popliteal to dorsalis pedis bypass using nonreversed greater saphenous ve in harvested from the right side. SURGEON: Alvin Rich MD CHORAL TEACHER: CITLALI Naik ESTIMATED BLOOD LOSS: 150 mL. COMPLICATIONS: There are no intraprocedural complications. INDICATIONS: A 74-year-old diabetic, hypertensive woman with severe peripheral arterial disease. Nancy matute has gangrene of the right first toe. I put her today for a right popliteal to dorsalis pedis bypas s and angiogram showed the tibial vessels are all occluded. She has a very proximal dorsalis pedis a nd then a good lateral tarsal posterior tibial. PROCEDURE: Patient was brought to the operating room and placed on the table in supine position. [facility] leg was prepped and draped in the usual sterile fashion after induction of general endotracheal a nesthesia. I began by exposing the dorsalis pedis on the dorsum of the foot just above the ankle. I made an incision over the artery there, dissected down to it and divided on angiogram mainly the lat eral tarsal branch was patent. The dorsalis pedis occludes but I was able to dissect out the distal dorsalis pedis and the lateral tarsal. It was a nice healthy small but patent artery. I then went u p to the calf. I had already marked the great saphenous vein on the skin from the midcalf to the jorge luis in. I made an incision over the medial calf and I carefully dissected out the greater saphenous vein up to the knee. I ligated all the side branches using 3-0 silk ties and dividing them. Once I had the vein harvested there and exposed, I cut the fascia over the calf muscles medially, retracted the calf muscles posteriorly entering the popliteal space. I dissected the popliteal vein away from the popliteal artery, popliteal artery had an excellent pulse. There was good caliber and I dissected it out. It was a good adequate artery for proximal anastomosis. I then continued to harvest the great saphenous vein all the way up to the groin, made multiple incisions throughout the thigh. I ligated all the side branches and divided them. I then ligated the greater saphenous vein in the groin usin g a 2-0 silk tie and divided it. I then ligated it distally using surgical clips and divided it and then took the vein out. I flushed it, it flushed well. I got all the side branches that I missed wi th 3-0 silk ties or 6-0 Prolene sutures. I then placed a [place] tunneler between the 2 incisions fr om the calf to the dorsum of the foot and left it in place. Gave the patient 6000 units of heparin i ntravenously and clamped the popliteal artery proximally and distally, made an anterior arteriotomy a bout a cm long, especially in the upper end of the great saphenous vein to fit the arteriotomy. I cu t the first valve under direct vision. I then anastomosed the upper end of the great saphenous vein at the side of the popliteal artery using 6-0 Prolene suture in a running standard vascular surgical fashion. I removed the clamps and put a couple of repair sutures in. At this point there was good h emostasis. I then passed a valvulotome from below and cut past it 3 times and cut all the valves. T here was excellent outflow from the graft. I then brought the graft through the tunnel and then nael aris the tunneler. I then clamped the graft up in the calf region and then clamped the lateral tarsal artery proximally and distally using some little bulldogs. I opened it. It was a good healthy bryce ry. Made an arteriotomy about 8 mm in length and spatulated the end of the graft after cutting it to appropriate length and I anastomosed the distal end of graft to the side of the lateral tarsal arter y using 6-0 Prolene suture in a running standard vascular surgical fashion. This part completed, I b ackbled. There was good backbleeding from the artery and there was good excellent inflow from the gr aft. I then completed the anastomosis, removed the clamps. I listened with the Doppler, there was g ood signal in the lateral tarsal in the graft. Good pulsation. I then closed the distal anastomotic incision using interrupted 3-0 nylon vertical mattress sutures. I then closed the rest of the incisi ons using 3-0 Vicryl for subcutaneous tissue, surgical venu for the skin. Sterile dressings were applied. The patient was extubated in the operating room and transferred to recovery room in stable condition and tolerated the procedure well without any complication. She is going to need her first toe amputated next week. Dr. Haywood is already planning to do that. She is going to the ICU [facility]. Dictated By: ALVIN VENTURA/MARIANNA Conf#: [id number] DID#: [id number] CC: BRADLEY LEONG MD; JONH ALVARADO VENETIAN BLIND CLEANER AND REPAIRER; ERIN HAYWOOD DPM; IGOR SCHWAB MD; XUAN PROCTOR MD;*[facility]*
--- NOTE | 2019-03-09 13:19 | PN ---
Date/Time of Note Date/Time of Note DATE: 03/09/19 TIME: 13:12 Assessment/Plan VTE Prophylaxis Risk score (from Ns)>0 risk: 5 SCD applied (from Ns): No SCD contraindicated: other Pharmacological prophylaxis: heparin Lines/Catheters IV [facility] Type [facility]from [facility] [place] [facility] Urinary Cath still in place: No Assessment/Plan Hospital Course SUBJECTIVE: s/p Vscular surgery. in PACU. Awake. stable condition. OBJECTIVE: Vital signs-see below PHYSICAL EXAM: Constitutional: Adequately built,not in acute distress. HEENT: Head atraumatic and normocephalic. Eyes: Extraocular muscles intact. Anicteric sclerae. Pupils equal bilaterally, reactive to light. NECK: Supple without lymph node. CHEST: Clear and good breath sounds equally. No wheezing. No rhonchi. HEART: S1, S2. Regular rate and rhythm. ABDOMEN: Soft/non tender with no rebound tenderness. Bowel sounds were present. EXTREMITIES: Right foot with Rayo wrap/dressing C/D/I. PT pulse palpable. Rt radial A line. Left foot with no swelling, normal pulses. NEUROLOGIC: Alert and oriented x3. No focal deficit. No sensory deficit. PSYCHOSOCIAL: No signs of depression. INTEGUMENTARY: No open wounds. ASSESSMENT AND PLAN:74-year-old female with past medical history of coronary artery disease status post most recent PCI December 2017, diabetes, hypertension who presents with right great toe pain/blister formation, found to have gas gangrene of the right foot... Right great toe gas gangrene s/p I&D 02/21 -S/p Right popliteal to dorsalis pedis bypass 03/09 -Continue wound care/antibiotics -May requiring amputation of the involved toe per discretion of lap runner. -f/u vascular/podiatry recs. Poorly controlled diabetes mellitus -Stable -Continue current basal/bolus/SSC insulin CAD s/p PCI -continue aspirin/statin/beta-blockers -Cardiology consultation appreciated. HTN -cont.BB/ARB Hypothyroidism -Continue Synthroid - will need outpatient repeat thyroid studies in 4-6 weeks Hyperlipidemia - continue statin PAD - s/p R pop-Dp bypass - aspirin on board Disposition - s/p bypass by vascular. F/u podiatry recs regarding further DVT prophylaxis: Heparin Disposition: s/o open revascularization. F/u podiatry recs on possible amputation need for Rt great toe. Cont. wound care and antibiotics. Patient was seen in collaboration with Dr. Rosas Result Diagram: 03/08/1944903/08/19 0450 Results 24hrs Laboratory Tests Test 03/08/19 17:37 03/08/19 20:38 03/09/19 00:40 03/09/19 05:21 Bedside Glucose 113 187 103 107 Test 03/09/19 12:33 Bedside Glucose 243 H Exam/Review of Systems Exam Vitals Vital Signs Date Temp Pulse Resp B/P (MAP) Pulse Ox O2 O2 Flow FiO2 Time Delivery Rate 03/09/19 80 22 142/60 99 Nasal 3.0 12:53 (87) Cannula 03/09/19 98.0 12:12 03/08/19 20:30 Intake and Output 03/08/19 03/08/19 03/09/19 1515:00 23:00 07:00 IntakeIntake Total 900 ml 150 ml 550 ml BalanceBalance 900 ml 150 ml 550 ml Results Results 24hrs Laboratory Tests Test 03/08/19 17:37 03/08/19 20:38 03/09/19 00:40 03/09/19 05:21 Bedside Glucose 113 187 103 107 Test 03/09/19 12:33 Bedside Glucose 243 H Medications Medication Current Medications Ondansetron HCl (Zofran Inj) 4 mg Q6H PRN IV NAUSEA AND/OR VOMITING Last administered on 02/21/19 06:47; Admin Dose 4 MG; Start 02/21/19 at 01:30 Acetaminophen (Tylenol Liquid) 650 mg Q6H PRN PO PAIN LEVEL 1-3 OR FEVER Last administered on 03/06/19 12:16; Admin Dose 650 MG; Start 02/21/19 at 01:30 Acetaminophen/ Hydrocodone Bitart ([place] (5/325)) 1 tab Q6H PRN PO PAIN LEVEL 4-6 Last administered on 03/08/19 20:47; Admin Dose 1 TAB; Start 02/21/19 at 01:30 Morphine Sulfate (morphine) 4 mg Q4H PRN IV SEVERE PAIN LEVEL 7-10 Last administered on 03/03/19 15:28; Admin Dose 4 MG; Start 02/21/19 at 05:30 Atorvastatin Calcium (Lipitor) 40 mg QHS PO Last administered on 03/08/19 20:43; Admin Dose 40 MG; Start 02/21/19 at 21:00 Carvedilol (Coreg) 3.125 mg BID PO Last administered on 03/08/19 08:43; Admin Dose 3.125 MG; Start 02/21/19 at 09:00 Ferrous Sulfate (Ferrous Sulfate (Ec)) 325 mg QAM PO Last administered on 03/08 08:42; Admin Dose 325 MG; Start 02/21/19 at 09:00 Miscellaneous Information 1 ea NOTE XX ; Start 02/21/19 at 06:00 Glucose (Glutose) 15 gm Q15M PRN PO DECREASED GLUCOSE; Start 02/21/19 at 06:00 Glucose (Glutose) 22.5 gm Q15M PRN PO DECREASED GLUCOSE; Start 02/21/19 at 06:00 Dextrose (D50w Syringe) 25 ml Q15M PRN IV DECREASED GLUCOSE; Start 02/21/19 at 06:00 Dextrose (D50w Syringe) 50 ml Q15M PRN IV DECREASED GLUCOSE; Start 02/21/19 at 06:00 Glucagon (Glucagen) 1 mg Q15M PRN IM DECREASED GLUCOSE; Start 02/21/19 at 06:00 Glucose (Glutose) 15 gm Q15M PRN BUCCAL DECREASED GLUCOSE; Start 02/21/19 at 06:00 Sodium Hypochlorite (Dakins Diluted ()) 1 applic DAILY TP Last administered on 03/07/19 08:11; Admin Dose 1 APPLIC; Start 02/22/19 at 09:00 Aspirin (Aspirin) 81 mg DAILY PO Last administered on 03/08/19 08:43; Admin Dose 81 MG; Start 02/22/19 at 14:30 Heparin Sodium (Porcine) (Heparin (5000 Units/1ml)) 5,000 unit BID SC Last administered on 03/08/19 20:46; Admin Dose 5,000 UNIT; Start 02/24/19 at 21:00 Levothyroxine Sodium (Synthroid) 150 mcg BEFORE BREAKFAST PO Last administered on 03/08/19 08:00; Admin Dose 150 MCG; Start 02/25/19 at 07:00 Polyethylene Glycol (Miralax) 17 gm DAILY PRN PO CONSTIPATION Last administered on 02/26/19 21:05; Admin Dose 17 GM; Start 02/25/19 at 10:00 Senna/Docusate Sodium (Senokot-S) 1 tab BID PRN PO constipation; Start 02/25/19 at 10:00 Bisacodyl (Dulcolax Supp) 10 mg DAILY PRN [place] CONSTIPATION; Start 02/25/19 at 10:00 Albuterol/ Ipratropium (Duoneb) 3 ml Q6HWA RESP THERAPY HHN Last administered on 03/08/19 08:24; Admin Dose 3 ML; Start 02/26/19 at 20:00 Albuterol/ Ipratropium (Duoneb) 3 ml Q2H RESP THERAPY PRN HHN shortness of breath Last administered on 02/26/19 16:13; Admin Dose 3 ML; Start 02/26/19 at 15:00 Budesonide (Pulmicort (Neb)) 0.5 mg BID RESP THERAPY HHN Last administered on 03/07/19 09:21; Admin Dose 0.5 MG; Start 02/26/19 at 20:00 Famotidine (Pepcid) 20 mg DAILY PO Last administered on 03/08/19 08:42; Admin Dose 20 MG; Start 02/27/19 at 09:00 Guaifenesin/ Codeine Phosphate (Robitussin Ac Liquid Cup) 5 ml Q4H PRN PO cough Last administered on 03/08/19 09:52; Admin Dose 5 ML; Start 03/01/19 at 10:30 Ampicillin 50 ml @ 100 mls/hr Q8 IVPB Last administered on 03/09/19 05:23; Admin Dose 100 MLS/HR; Start 03/02/19 at 22:00 Amlodipine Besylate (Norvasc) 10 mg DAILY PO Last administered on 03/08/19 08:43; Admin Dose 10 MG; Start 03/05/19 at 09:00 Diagnostic Test (Pha) (Accu-Chek) 1 ea 02 XX ; Start 03/05/19 at 02:00 Losartan Potassium (Cozaar) 50 mg QPM PO Last administered on 03/08/19 20:44; Admin Dose 50 MG; Start 03/05/19 at 21:00 Insulin Aspart (Novolog Insulin Pen) 10 unit WITH MEALS SC Last administered on 6/13/19at 17:40; Admin Dose 10 UNIT; Start 03/05/19 at 11:30 Insulin Glargine (Lantus) 30 units DAILY@2000 SC Last administered on 03/08/19at 20:46; Admin Dose 30 UNITS; Start 03/05/19 at 20:00 Hydralazine HCl (Apresoline) 10 mg Q6H PRN IV SBP>160 Last administered on 03/09/19at 12:40; Admin Dose 20 MG; Start 03/05/19 at 11:00 Levofloxacin (Levaquin) 250 mg DAILY@06 PO ; Start 03/09/19 at 06:00 Dextrose/Sodium Chloride 1,000 ml @ 60 mls/hr [id number] IV Last administered on 03/09/19at 00:40; Admin Dose 60 MLS/HR; Start 03/09/19 at 00:30 Insulin Aspart (Novolog Insulin Pen) NOVOLOG *MILD* ALGORI... Q4 SC Last administered on 03/09/19at 12:37; Admin Dose 3 UNIT; Start 03/09/19 at 01:00 Nicardipine HCl 50 mg/Sodium Chloride 500 ml @ 50 mls/hr TITRATE IV ; Start 03/09/19 at 12:00; Status UNV Hydromorphone HCl (Dilaudid) 0.2 mg PACU PRN IV MILD PAIN 1-3; Start 03/09/19 at 12:30; Stop 03/09/19 at 20:00 Hydromorphone HCl (Dilaudid) 0.4 mg PACU PRN IV MOD PAIN 4-6; Start 03/09/19 at 12:30; Stop 03/09/19 at 20:00 Fentanyl (Sublimaze) 25 mcg PACU ORDER PRN IV MILD PAIN 1-3; Start 03/09/19 at 12:30; Stop 03/09/19 at 20:00 Ondansetron HCl (Zofran Inj) 4 mg PACU ORDER PRN IV NAUSEA/VOMITING; Start 03/09/19 at 12:30; Stop 03/09/19 at 20:00 Metoclopramide HCl (Reglan) 10 mg PACU ORDER PRN IV NAUSEA/VOMITING; Start 03/09/19 at 12:30; Stop 03/09/19 at 20:00 Labetalol HCl (Labetalol) 5 mg PACU ORDER PRN IV HIGH BLOOD PRESSURE; Start 03/09/19 at 12:30; Stop 03/09/19 at 20:00 Hydralazine HCl (Apresoline) 5 mg PACU ORDER PRN IV HIGH BLOOD PRESSURE; Start 03/09/19 at 12:30; Stop 03/09/19 at 20:00 Meperidine HCl (Demerol) 25 mg PACU ORDER PRN IV .RIGORS; Start 03/09/19 at 12:30; Stop 03/09/19 at 20:00 Diphenhydramine HCl (Benadryl) 25 mg PACU ORDER PRN IV .PRURITUS; Start 03/09/19 at 12:30; Stop 03/09/19 at 20:00 JONH ALVARADO NP Mar 09, 2019 13:19
[2019-03-09] MEDS ORDERED: HEPARIN 1000 UNITS/ML 10 ML INJ IV PRN ×2 (15:30)
[2019-03-09] MEDS ORDERED: HEPARIN 25000 UNITS/250 ML 250 ML IV SCH ×3 (15:30→16:30)
[2019-03-09] MEDS ORDERED: HEPARIN 1000 UNITS/ML 10 ML INJ IV ONE (15:30)
[2019-03-09] MEDS: morphine 4 MG/ML VIAL IV PRN ×2 (16:26→20:25)
[2019-03-09] MEDS: LACTATED RINGER'S 1,000 ML IV SCH (16:26)
[2019-03-09] MEDS ORDERED: niCARdipine 50 MG in SOD CHLORIDE 0.9% 480 ML IV SCH (16:30)
[2019-03-09] MEDS: ATORVASTATIN 40 MG TAB PO SCH (21:14)
[2019-03-09] MEDS: LOSARTAN 50 MG TAB PO SCH (21:14)
[2019-03-09] MEDS: INSULIN GLARGINE [LANTus] (100 UNITS/ML) SYG SC SCH (21:19)
[2019-03-10] VITALS (43 sets, daily range): BP systolic 91–133; BP diastolic 39–74; PULSE 71–138; RESP 11–34
[2019-03-10] MEDS: morphine 4 MG/ML VIAL IV PRN ×2 (00:38→05:48)
[2019-03-10] MEDS: LACTATED RINGER'S 1,000 ML IV SCH ×3 (01:34→15:31)
[2019-03-10] MEDS: ACCU-CHEK XX SCH (01:44)
[2019-03-10] MEDS ORDERED: ACCU-CHEK XX SCH (02:00)
[2019-03-10] MEDS: LEVOTHYROXINE 150 MCG TAB PO SCH (05:45)
[2019-03-10] MEDS: LEVOFLOXACIN 250 MG TAB PO SCH (05:45)
[2019-03-10] MEDS: AMPICILLIN 1 GM/NS (PMX) 50 ML IVPB SCH ×3 (05:45→21:31)
[2019-03-10] MEDS: INSULIN ASPART [NOVOLOG] 3 ML PEN SC SCH ×7 (07:35→20:59)
[2019-03-10] MEDS ORDERED: morphine 4 MG/ML VIAL IV PRN ×2 (08:00)
[2019-03-10] MEDS ORDERED: morphine 10 MG INJ IV PRN (08:00)
[2019-03-10] MEDS ORDERED: HYDROmorphONE 1 MG/ML SYG IV ONE (08:00)
--- NOTE | 2019-03-10 08:52 | PN ---
Date/Time of Note Date/Time of Note DATE: 03/10/19 TIME: 08:49 Assessment/Plan Lines/Catheters IV Catheter Type (from Nrsg): Central Line Goodman in Place (from Nrsg): Yes Assessment/Plan Assessment/Plan Doing well s/p R pop-DP bypass - incisions were oozing but no hematoma and no bleeding currently Stop heparin and hold ASA Keep in ICU on bedrest with R leg elevated Labs P - tx if Hg < 8 Subjective 24 Hr Interval Summary Awake and alert, she c/o pain in the right leg. She was oozing from the incisions overnight and the dressing was reinforced. Exam/Review of Systems Vital Signs Vitals Vital Signs Date Temp Pulse Resp B/P (MAP) Pulse Ox O2 O2 Flow FiO2 Time Delivery Rate 03/10/19 2.0 06:28 03/10/19 88 20 117/51 100 06:15 (73) 03/10/19 99.2 04:20 03/09/19 Nasal 20:13 Cannula 03/08/19 21 20:30 Intake and Output 03/09/19 03/09/19 03/10/19 1515:00 23:00 07:00 IntakeIntake Total 1600 ml 832.5 ml 1650 ml OutputOutput Total 750 ml 1740 ml 530 ml BalanceBalance 850 ml -907.5 ml 1120 ml Exam Free Text/Dictation Right leg dressings removed, there was oozing from the incision in the groin and the calf, no active bleeding, no hematoma, R foot warm and hyperemic, 3+ graft pulse Results Result Diagram: 03/08/19 0450 03/08/19 0450 ALVIN ENG MD Mar 10, 2019 08:52
[2019-03-10] MEDS: ALBUTEROL/IPRATROPIUM (NEB) 3 ML AMP HHN SCH ×3 (09:31→20:07)
[2019-03-10] MEDS: BUDESONIDE (NEB) 0.5MG/2ML AMP HHN SCH ×2 (09:31→20:00)
[2019-03-10] MEDS: AMLODIPINE 2.5 MG TAB PO SCH (10:56)
[2019-03-10] MEDS: FAMOTIDINE 20 MG TAB PO SCH (10:56)
[2019-03-10] MEDS: FERROUS SULFATE (EC) 325 MG TAB PO SCH (10:57)
--- NOTE | 2019-03-10 11:41 | PN ---
Date/Time of Note Date/Time of Note DATE: 03/10/19 TIME: 11:29 Assessment/Plan VTE Prophylaxis Risk score (from Ns)>0 risk: 9 SCD applied (from Ns): No SCD contraindicated: other Pharmacological prophylaxis: NA/contraindicated Pharm contraindication: bleeding Lines/Catheters IV Catheter Type (from Nrsg): Central Line Central line still needed: Yes Urinary Cath still in place: Yes Reason Cath still needed: terminal illness/intractable pain Assessment/Plan Assessment/Plan 1. Right great toe with gas gangrene s/p I&D 02/21 - Vascular surgery on board and appreciate consultation. Patient is s/p right popliteal to dorsalis pedis bypass 03/09. Doing well post op. Holding heparin and aspirin given low hemoglobin - ID on board and will continue antibiotics at this time - Per podiatry will plan for further surgical intervention on R toe following revascularization - pain control - Continue local wound care and dressing changes 2. Peripheral artery disease s/p R pop-Dp bypass - Vasc on board and will keep monitoring in ICU today with leg elevated. On strict bed rest - aspirin on hold right now given anemia 3. Poorly controlled diabetes mellitus - A1c noted - Stable - continue insulin and will adjust for better control 4. CAD s/p PCI - continue aspirin/statin/beta-blockers - Cardiology consultation appreciated. 5. HTN - stable - continue current medications 6. Hypothyroidism - Continue Synthroid - will need outpatient repeat thyroid studies in 4-6 weeks 7. Hyperlipidemia - continue statin 8. Disposition - Continue monitoring in ICU today for close monitoring of right lower extremity. Podiatry to plan further surgical intervention next week Result Diagram: 03/10/19 1020 03/10/19 0939 Results 24hrs Laboratory Tests Test 03/09/19 12:33 03/09/19 17:46 03/09/19 21:10 03/10/19 01:46 Bedside Glucose 243 H 206 238 H 215 Test 03/10/19 09:39 03/10/19 10:20 03/10/19 10:55 White Blood Count 7.2 7.6 Red Blood Count 1.92 #L 1.92 L Hemoglobin 5.6 #*L 5.6 *L Hematocrit 17.9 #L 17.8 L Mean Corpuscular 93.2 92.7 Volume Mean Corpuscular 29.2 29.2 Hemoglobin Mean Corpuscular 31.3 L 31.5 L Hemoglobin Concent Red Cell 14.4 14.3 Distribution Width Platelet Count 143 # 165 Mean Platelet Volume 10.3 10.8 H Immature 1.000 H 0.900 H Granulocytes % Neutrophils % 64.2 Lymphocytes % 20.4 Monocytes % 12.7 H Eosinophils % 1.7 Basophils % 0.0 Nucleated Red Blood 0.0 0.0 Cells % Immature 0.070 H 0.070 H Granulocytes # Neutrophils # 4.6 Lymphocytes # 1.5 Monocytes # 0.9 Eosinophils # 0.1 Basophils # 0.0 Nucleated Red Blood 0.0 Cells # Sodium Level 134 L Potassium Level 4.2 Chloride Level 105 Carbon Dioxide Level 28 Anion Gap 1 L Blood Urea Nitrogen 17 Creatinine 0.92 Est Glomerular Filtrat Rate mL/min Glucose Level 175 Calcium Level 7.4 L Pathologist YES Review (Hematology) Bedside Glucose 179 Subjective 24 Hr Interval Summary Free Text/Dictation Patient was experiencing discomfort this am with relief after pain control and changing of dressing. She denies any acute issues. Family at bedside. Exam/Review of Systems Exam Vitals Vital Signs Date Temp Pulse Resp B/P (MAP) Pulse Ox O2 O2 Flow FiO2 Time Delivery Rate 03/10/19 83 21 98 Nasal 2.0 09:25 Cannula 03/10/19 117/51 06:15 (73) 03/10/19 99.2 04:20 03/08/19 21 20:30 Intake and Output 03/09/19 03/09/19 03/10/19 1515:00 23:00 07:00 IntakeIntake Total 1600 ml 832.5 ml 1650 ml OutputOutput Total 750 ml 1740 ml 530 ml BalanceBalance 850 ml -907.5 ml 1120 ml Exam General: No acute distress. awake and answering questions appropriately Neck: Supple Chest: Nontender Lungs: Clear to auscultation bilaterally no crackles rales or wheezing Heart: Normal S1-S2, Regular rhythm and rate. No murmur, S3, or S4 Abdomen: Soft , nontender, nondistended , bowel sounds are present. No guarding no rebound tenderness Extremities: right lower extremity dressing in place. skin: no rashes or lesions appreciated. right great toe with necrosis but no discharge or drainage Results Results 24hrs Laboratory Tests Test 03/09/19 12:33 03/09/19 17:46 03/09/19 21:10 03/10/19 01:46 Bedside Glucose 243 H 206 238 H 215 Test 03/10/19 09:39 03/10/19 10:20 03/10/19 10:55 White Blood Count 7.2 7.6 Red Blood Count 1.92 #L 1.92 L Hemoglobin 5.6 #*L 5.6 *L Hematocrit 17.9 #L 17.8 L Mean Corpuscular 93.2 92.7 Volume Mean Corpuscular 29.2 29.2 Hemoglobin Mean Corpuscular 31.3 L 31.5 L Hemoglobin Concent Red Cell 14.4 14.3 Distribution Width Platelet Count 143 # 165 Mean Platelet Volume 10.3 10.8 H Immature 1.000 H 0.900 H Granulocytes % Neutrophils % 64.2 Lymphocytes % 20.4 Monocytes % 12.7 H Eosinophils % 1.7 Basophils % 0.0 Nucleated Red Blood 0.0 0.0 Cells % Immature 0.070 H 0.070 H Granulocytes # Neutrophils # 4.6 Lymphocytes # 1.5 Monocytes # 0.9 Eosinophils # 0.1 Basophils # 0.0 Nucleated Red Blood 0.0 Cells # Sodium Level 134 L Potassium Level 4.2 Chloride Level 105 Carbon Dioxide Level 28 Anion Gap 1 L Blood Urea Nitrogen 17 Creatinine 0.92 Est Glomerular Filtrat Rate mL/min Glucose Level 175 Calcium Level 7.4 L Pathologist YES Review (Hematology) Bedside Glucose 179 Medications Medication Current Medications Ondansetron HCl (Zofran Inj) 4 mg Q6H PRN IV NAUSEA AND/OR VOMITING Last administered on 02/21/19at 06:47; Admin Dose 4 MG; Start 02/21/19 at 01:30 Acetaminophen (Tylenol Liquid) 650 mg Q6H PRN PO PAIN LEVEL 1-3 OR FEVER Last administered on 03/06/19at 12:16; Admin Dose 650 MG; Start 02/21/19 at 01:30 Acetaminophen/ Hydrocodone Bitart ([place] (5/325)) 1 tab Q6H PRN PO PAIN LEVEL 4-6 Last administered on 03/08/19at 20:47; Admin Dose 1 TAB; Start 02/21/19 at 01:30 Atorvastatin Calcium (Lipitor) 40 mg QHS PO Last administered on 03/09/19at 21:14; Admin Dose 40 MG; Start 02/21/19 at 21:00 Carvedilol (Coreg) 3.125 mg BID PO Last administered on 03/10/19at 10:56; Admin Dose 3.125 MG; Start 02/21/19 at 09:00 Ferrous Sulfate (Ferrous Sulfate (Ec)) 325 mg QAM PO Last administered on 03/10/19at 10:57; Admin Dose 325 MG; Start 02/21/19 at 09:00 Miscellaneous Information 1 ea NOTE XX ; Start 02/21/19 at 06:00 Glucose (Glutose) 15 gm Q15M PRN PO DECREASED GLUCOSE; Start 02/21/19 at 06:00 Glucose (Glutose) 22.5 gm Q15M PRN PO DECREASED GLUCOSE; Start 02/21/19 at 06:00 Dextrose (D50w Syringe) 25 ml Q15M PRN IV DECREASED GLUCOSE; Start 02/21/19 at 06:00 Dextrose (D50w Syringe) 50 ml Q15M PRN IV DECREASED GLUCOSE; Start 02/21/19 at 06:00 Glucagon (Glucagen) 1 mg Q15M PRN IM DECREASED GLUCOSE; Start 02/21/19 at 06:00 Glucose (Glutose) 15 gm Q15M PRN BUCCAL DECREASED GLUCOSE; Start 02/21/19 at 06:00 Levothyroxine Sodium (Synthroid) 150 mcg BEFORE BREAKFAST PO Last administered on 03/10/19at 05:45; Admin Dose 150 MCG; Start 02/25/19 at 07:00 Polyethylene Glycol (Miralax) 17 gm DAILY PRN PO CONSTIPATION Last administered on 02/26/19at 21:05; Admin Dose 17 GM; Start 02/25/19 at 10:00 Senna/Docusate Sodium (Senokot-S) 1 tab BID PRN PO constipation; Start 02/25/19 at 10:00 Bisacodyl (Dulcolax Supp) 10 mg DAILY PRN [place] CONSTIPATION; Start 02/25/19 at 10:00 Albuterol/ Ipratropium (Duoneb) 3 ml Q6HWA RESP THERAPY HHN Last administered on 03/10/19at 09:31; Admin Dose 3 ML; Start 02/26/19 at 20:00 Albuterol/ Ipratropium (Duoneb) 3 ml Q2H RESP THERAPY PRN HHN shortness of breath Last administered on 02/26/19 16:13; Admin Dose 3 ML; Start 02/26/19 at 15:00 Budesonide (Pulmicort (Neb)) 0.5 mg BID RESP THERAPY HHN Last administered on 03/10/19 09:31; Admin Dose 0.5 MG; Start 02/26/19 at 20:00 Famotidine (Pepcid) 20 mg DAILY PO Last administered on 03/10/19 10:56; Admin Dose 20 MG; Start 02/27/19 at 09:00 Guaifenesin/ Codeine Phosphate (Robitussin Ac Liquid Cup) 5 ml Q4H PRN PO cough Last administered on 03/08/19 09:52; Admin Dose 5 ML; Start 03/01/19 at 10:30 Ampicillin 50 ml @ 100 mls/hr Q8 IVPB Last administered on 03/10/19 05:45; Admin Dose 100 MLS/HR; Start 03/02/19 at 22:00 Amlodipine Besylate (Norvasc) 10 mg DAILY PO Last administered on 03/10/19 10:56; Admin Dose 10 MG; Start 03/05/19 at 09:00 Diagnostic Test (Pha) (Accu-Chek) 1 ea 02 XX Last administered on 03/10/19 01:44; Admin Dose 1 EA; Start 03/05/19 at 02:00 Losartan Potassium (Cozaar) 50 mg QPM PO Last administered on 03/09/19 21:14; Admin Dose 50 MG; Start 03/05/19 at 21:00 Insulin Aspart (Novolog Insulin Pen) 10 unit WITH MEALS SC Last administered on 03/08/19 17:40; Admin Dose 10 UNIT; Start 03/05/19 at 11:30 Insulin Glargine (Lantus) 30 units DAILY@2000 SC Last administered on 03/09/19 21:19; Admin Dose 30 UNITS; Start 03/05/19 at 20:00 Hydralazine HCl (Apresoline) 10 mg Q6H PRN IV SBP>160 Last administered on 03/09/19 12:40; Admin Dose 20 MG; Start 03/05/19 at 11:00 Levofloxacin (Levaquin) 250 mg DAILY@06 PO Last administered on 03/10/19 05:45; Admin Dose 250 MG; Start 03/09/19 at 06:00 Nicardipine HCl 50 mg/Sodium Chloride 500 ml @ 50 mls/hr TITRATE IV ; Start 03/09/19 at 16:30 Lactated Ringer's 1,000 ml @ 125 mls/hr Q8H IV Last administered on 03/10/19at 10:57; Admin Dose 125 MLS/HR; Start 03/09/19 at 16:00 Insulin Aspart (Novolog Insulin Pen) NOVOLOG *MILD* ALGORITHM WITH MEALS BEDTIME SC Last administered on 03/10/19at 11:08; Admin Dose 1 UNIT; Start 03/09/19 at 17:35 Morphine Sulfate (morphine) 2 mg Q1H PRN IV SEVERE PAIN LEVEL 7-10; Start 03/10/19 at 08:00 Morphine Sulfate (morphine) 3 mg Q1H PRN IV SEVERE PAIN LEVEL 7-10; Start 03/10/19 at 08:00 Morphine Sulfate (morphine) 4 mg Q1H PRN IV SEVERE PAIN LEVEL 7-10; Start 03/10/19 at 08:00 Morphine Sulfate (morphine) 5 mg Q1H PRN IV SEVERE PAIN LEVEL 7-10; Start 03/10/19 at 08:00 UXAN PROCTOR MD Mar 10, 2019 11:41
--- NOTE | 2019-03-10 13:03 | CONS ---
Assessment/Plan Assessment/Plan Hospital Course (Demo Recall) Patient is alert feels good denies pain she is eating lunch family at bedside no fevers overnight WBC 7.6 H&H 5.6 and 17.8 platelets 165 BUN 17 creatinine 0.92 Indwelling: Right IJ triple-lumen catheter Antimicrobials: Levaquin, ampicillin Microbiology right foot wound culture grew REAL and enterococcus species Physical examination: Obese well-developed fragile elderly woman who is alert in no distress. Head atraumatic normocephalic sclera nonicteric neck is supple chest rise symmetrical breath sounds clear heart: S1-S2. Abdomen soft bowel sounds present. Extremities without cyanosis, right foot jonathan wrapped Assessment: 1. Right foot cellulitis with toe gangrene 2. Peripheral arterial disease status post abdominal aortogram with right popliteal artery angioplasty 02/23/19, s/p bypass graft 03/09/19 3. Diabetes 4. CHF Plan: Stable post-op, continue antibiotics, vascular surgery/podiatry rec-s Consultation Date/Type/Reason Admit Date/Time February 20, 2019 at 23:53 Initial Consult Date Type of Consult id Date/Time of Note DATE: 03/10/19 TIME: 13:01 Exam/Review of Systems Exam Vitals Vital Signs Date Temp Pulse Resp B/P (MAP) Pulse Ox O2 O2 Flow FiO2 Time Delivery Rate 03/10/19 83 21 98 Nasal 2.0 09:25 Cannula 03/10/19 117/51 06:15 (73) 03/10/19 99.2 04:20 03/08/19 21 20:30 Intake and Output 03/09/19 03/09/19 03/10/19 1515:00 23:00 07:00 IntakeIntake Total 1600 ml 832.5 ml 1650 ml OutputOutput Total 750 ml 1740 ml 530 ml BalanceBalance 850 ml -907.5 ml 1120 ml Results Result Diagram: 03/10/19 1020 03/10/19 0939 Results 24hrs Laboratory Tests Test 03/09/19 17:46 03/09/19 21:10 03/10/19 01:46 03/10/19 09:39 Bedside Glucose 206 238 H 215 White Blood Count 7.2 Red Blood Count 1.92 #L Hemoglobin 5.6 #*L Hematocrit 17.9 #L Mean Corpuscular 93.2 Volume Mean Corpuscular 29.2 Hemoglobin Mean Corpuscular 31.3 L Hemoglobin Concent Red Cell 14.4 Distribution Width Platelet Count 143 # Mean Platelet Volume 10.3 Immature 1.000 H Granulocytes % Neutrophils % 64.2 Lymphocytes % 20.4 Monocytes % 12.7 H Eosinophils % 1.7 Basophils % 0.0 Nucleated Red Blood 0.0 Cells % Immature 0.070 H Granulocytes # Neutrophils # 4.6 Lymphocytes # 1.5 Monocytes # 0.9 Eosinophils # 0.1 Basophils # 0.0 Nucleated Red Blood 0.0 Cells # Sodium Level 134 L Potassium Level 4.2 Chloride Level 105 Carbon Dioxide Level 28 Anion Gap 1 L Blood Urea Nitrogen 17 Creatinine 0.92 Est Glomerular Filtrat Rate mL/min Glucose Level 175 Calcium Level 7.4 L Test 03/10/19 10:20 03/10/19 10:55 White Blood Count 7.6 Red Blood Count 1.92 L Hemoglobin 5.6 *L Hematocrit 17.8 L Mean Corpuscular 92.7 Volume Mean Corpuscular 29.2 Hemoglobin Mean Corpuscular 31.5 L Hemoglobin Concent Red Cell 14.3 Distribution Width Platelet Count 165 Mean Platelet Volume 10.8 H Immature 0.900 H Granulocytes % Neutrophils % Segmented 71 Neutrophils % (Manual) Lymphocytes % Lymphocytes % 19 (Manual) Monocytes % Monocytes % (Manual) 8 Eosinophils % Eosinophils % 2 (Manual) Basophils % Nucleated Red Blood 0.0 Cells % Immature 0.070 H Granulocytes # Neutrophils # Lymphocytes (Manual) 1.4 Lymphocytes # Monocytes # Monocytes # (Manual) 0.6 Eosinophils # Basophils # Nucleated Red Blood Cells # Pathologist YES Review (Hematology) Platelet Estimate NORMAL Anisocytosis 1+ Bedside Glucose 179 Medications Medication Current Medications Ondansetron HCl (Zofran Inj) 4 mg Q6H PRN IV NAUSEA AND/OR VOMITING Last administered on 02/21/19at 06:47; Admin Dose 4 MG; Start 02/21/19 at 01:30 Acetaminophen (Tylenol Liquid) 650 mg Q6H PRN PO PAIN LEVEL 1-3 OR FEVER Last administered on 03/06/19at 12:16; Admin Dose 650 MG; Start 02/21/19 at 01:30 Acetaminophen/ Hydrocodone Bitart ([place] (5/325)) 1 tab Q6H PRN PO PAIN LEVEL 4-6 Last administered on 03/08/19at 20:47; Admin Dose 1 TAB; Start 02/21/19 at 01:30 Atorvastatin Calcium (Lipitor) 40 mg QHS PO Last administered on 03/09/19at 21:14; Admin Dose 40 MG; Start 02/21/19 at 21:00 Carvedilol (Coreg) 3.125 mg BID PO Last administered on 03/10/19at 10:56; Admin Dose 3.125 MG; Start 02/21/19 at 09:00 Ferrous Sulfate (Ferrous Sulfate (Ec)) 325 mg QAM PO Last administered on 03/10/19at 10:57; Admin Dose 325 MG; Start 02/21/19 at 09:00 Miscellaneous Information 1 ea NOTE XX ; Start 02/21/19 at 06:00 Glucose (Glutose) 15 gm Q15M PRN PO DECREASED GLUCOSE; Start 02/21/19 at 06:00 Glucose (Glutose) 22.5 gm Q15M PRN PO DECREASED GLUCOSE; Start 02/21/19 at 06:00 Dextrose (D50w Syringe) 25 ml Q15M PRN IV DECREASED GLUCOSE; Start 02/21/19 at 06:00 Dextrose (D50w Syringe) 50 ml Q15M PRN IV DECREASED GLUCOSE; Start 02/21/19 at 06:00 Glucagon (Glucagen) 1 mg Q15M PRN IM DECREASED GLUCOSE; Start 02/21/19 at 06:00 Glucose (Glutose) 15 gm Q15M PRN BUCCAL DECREASED GLUCOSE; Start 02/21/19 at 06:00 Levothyroxine Sodium (Synthroid) 150 mcg BEFORE BREAKFAST PO Last administered on 03/10/19at 05:45; Admin Dose 150 MCG; Start 02/25/19 at 07:00 Polyethylene Glycol (Miralax) 17 gm DAILY PRN PO CONSTIPATION Last administered on 02/26/19at 21:05; Admin Dose 17 GM; Start 02/25/19 at 10:00 Senna/Docusate Sodium (Senokot-S) 1 tab BID PRN PO constipation; Start 02/25/19 at 10:00 Bisacodyl (Dulcolax Supp) 10 mg DAILY PRN [place] CONSTIPATION; Start 02/25/19 at 10:00 Albuterol/ Ipratropium (Duoneb) 3 ml Q6HWA RESP THERAPY HHN Last administered on 03/10/19at 09:31; Admin Dose 3 ML; Start 02/26/19 at 20:00 Albuterol/ Ipratropium (Duoneb) 3 ml Q2H RESP THERAPY PRN HHN shortness of breath Last administered on 02/26/19 16:13; Admin Dose 3 ML; Start 02/26/19 at 15:00 Budesonide (Pulmicort (Neb)) 0.5 mg BID RESP THERAPY HHN Last administered on 03/10/19 09:31; Admin Dose 0.5 MG; Start 02/26/19 at 20:00 Famotidine (Pepcid) 20 mg DAILY PO Last administered on 03/10/19 10:56; Admin Dose 20 MG; Start 02/27/19 at 09:00 Guaifenesin/ Codeine Phosphate (Robitussin Ac Liquid Cup) 5 ml Q4H PRN PO cough Last administered on 03/08/19 09:52; Admin Dose 5 ML; Start 03/01/19 at 10:30 Ampicillin 50 ml @ 100 mls/hr Q8 IVPB Last administered on 03/10/19 05:45; Admin Dose 100 MLS/HR; Start 03/02/19 at 22:00 Amlodipine Besylate (Norvasc) 10 mg DAILY PO Last administered on 03/10/19 10:56; Admin Dose 10 MG; Start 03/05/19 at 09:00 Diagnostic Test (Pha) (Accu-Chek) 1 ea 02 XX Last administered on 03/10/19 01:44; Admin Dose 1 EA; Start 03/05/19 at 02:00 Losartan Potassium (Cozaar) 50 mg QPM PO Last administered on 03/09/19 21:14; Admin Dose 50 MG; Start 03/05/19 at 21:00 Insulin Aspart (Novolog Insulin Pen) 10 unit WITH MEALS SC Last administered on 03/08/19 17:40; Admin Dose 10 UNIT; Start 03/05/19 at 11:30 Insulin Glargine (Lantus) 30 units DAILY@2000 SC Last administered on 03/09/19 21:19; Admin Dose 30 UNITS; Start 03/05/19 at 20:00 Hydralazine HCl (Apresoline) 10 mg Q6H PRN IV SBP>160 Last administered on 6/14/19at 12:40; Admin Dose 20 MG; Start 03/05/19 at 11:00 Levofloxacin (Levaquin) 250 mg DAILY@06 PO Last administered on 03/10/19at 05:45; Admin Dose 250 MG; Start 03/09/19 at 06:00 Nicardipine HCl 50 mg/Sodium Chloride 500 ml @ 50 mls/hr TITRATE IV ; Start 03/09/19 at 16:30 Lactated Ringer's 1,000 ml @ 125 mls/hr Q8H IV Last administered on 03/10/19at 10:57; Admin Dose 125 MLS/HR; Start 03/09/19 at 16:00 Insulin Aspart (Novolog Insulin Pen) NOVOLOG *MILD* ALGORITHM WITH MEALS BEDTIME SC Last administered on 03/10/19at 11:08; Admin Dose 1 UNIT; Start 03/09/19 at 17:35 Morphine Sulfate (morphine) 2 mg Q1H PRN IV SEVERE PAIN LEVEL 7-10; Start 03/10/19 at 08:00 Morphine Sulfate (morphine) 3 mg Q1H PRN IV SEVERE PAIN LEVEL 7-10; Start 03/10/19 at 08:00 Morphine Sulfate (morphine) 4 mg Q1H PRN IV SEVERE PAIN LEVEL 7-10; Start 03/10/19 at 08:00 Morphine Sulfate (morphine) 5 mg Q1H PRN IV SEVERE PAIN LEVEL 7-10; Start 03/10/19 at 08:00 TORI GARCIA NP Mar 10, 2019 13:02
--- NOTE | 2019-03-10 13:31 | CONS ---
DATE OF ADMISSION: 02/20/2019 DATE OF CONSULTATION: 03/09/2019 SUBJECTIVE FINDINGS: The patient being followed for right foot ulceration, status post right poplite al to dorsalis pedis bypass with nonreverse greater saphenous vein. The patient currently in ICU. OBJECTIVE FINDINGS: VITAL SIGNS: Temperature 97.4, blood pressure 99/53, pulse oximetry is 98 on 2 liters per nasal janet gibson. GENERAL: The patient is sleepy. Right lower extremity warm, mild to moderate bloody drainage, latrice cation of gangrene of the right hallux. Dry. No signs of active bleeding. LABORATORIES: On 02/21, cultures Staphylococcus aureus and Enterococcus species. ASSESSMENT: 1. Right foot gangrene. 2. Peripheral arterial disease status post right lower extremity revascularization with open bypass. 3. Osteomyelitis, right hallux. 4. Diabetes. PLAN: Continue current wound treatments. Plan is right foot surgery with hallux amputation to be felipe eduled on Tuesday, obtain a consent, discussed plan with the family in [place]. All questions answer ed to their satisfaction. Dictated By: ERIN HAYWOOD DPM RB/MARIANNA Conf#: [id number] DID#: [id number] CC: IGOR SCHWAB MD; BRADLEY LEONG MD;*End*
[2019-03-10] MEDS: HYDROCODONE/APAP (5/325) TAB PO PRN (17:09)
[2019-03-10] MEDS: INSULIN GLARGINE [LANTus] (100 UNITS/ML) SYG SC SCH (21:00)
[2019-03-10] MEDS: ATORVASTATIN 40 MG TAB PO SCH (21:28)
[2019-03-10] MEDS: LOSARTAN 50 MG TAB PO SCH (21:29)
[2019-03-10] MEDS: morphine 2 MG INJ IV PRN (21:31)
[2019-03-11] VITALS (21 sets, daily range): BP systolic 92–144; BP diastolic 48–88; PULSE 60–84; RESP 18–37
[2019-03-11] MEDS: ACCU-CHEK XX SCH (01:25)
[2019-03-11] MEDS: LACTATED RINGER'S 1,000 ML IV SCH (01:25)
[2019-03-11] MEDS: LEVOFLOXACIN 250 MG TAB PO SCH (05:31)
[2019-03-11] MEDS: AMPICILLIN 1 GM/NS (PMX) 50 ML IVPB SCH ×3 (05:32→22:11)
[2019-03-11] MEDS: LEVOTHYROXINE 150 MCG TAB PO SCH (06:00)
[2019-03-11] MEDS: morphine 2 MG INJ IV PRN ×2 (07:39→12:39)
[2019-03-11] MEDS: INSULIN ASPART [NOVOLOG] 3 ML PEN SC SCH ×9 (07:50→20:12)
[2019-03-11] MEDS: ALBUTEROL/IPRATROPIUM (NEB) 3 ML AMP HHN SCH ×3 (08:00→20:33)
[2019-03-11] MEDS: BUDESONIDE (NEB) 0.5MG/2ML AMP HHN SCH ×2 (08:12→20:00)
--- NOTE | 2019-03-11 09:02 | PN ---
Date/Time of Note Date/Time of Note DATE: 03/11/19 TIME: 08:56 Assessment/Plan VTE Prophylaxis Risk score (from Ns)>0 risk: 11 SCD applied (from Ns): Yes Pharmacological prophylaxis: NA/contraindicated Pharm contraindication: bleeding Lines/Catheters IV Catheter Type (from Nrsg): Central Line Central line still needed: Yes Urinary Cath still in place: Yes Reason Cath still needed: terminal illness/intractable pain Assessment/Plan Assessment/Plan 1. Right great toe with gas gangrene s/p I&D 02/21 - Vascular surgery on board and appreciate consultation. Patient is s/p right popliteal to dorsalis pedis bypass 03/09. Holding heparin and aspirin given low hemoglobin - ID on board and will continue antibiotics at this time - Per podiatry will plan for amputation of R toe on Tuesday - pain control - Continue local wound care and dressing changes 2. Peripheral artery disease s/p R pop-Dp bypass - Vascular input appreciated 3. Acute blood loss anemia - hgb remains low this am despite 2 units yesterday. Will ordered 1 unit PRBC 4. Poorly controlled diabetes mellitus - A1c noted - Stable - continue insulin and will adjust for better control 5. CAD s/p PCI - continue aspirin/statin/beta-blockers - Cardiology consultation appreciated. 6. HTN - stable - continue current medications 7. Hypothyroidism - Continue Synthroid - will need outpatient repeat thyroid studies in 4-6 weeks 8. Hyperlipidemia - continue statin 9. Disposition - Continue current treatment and once cleared by Vascular surgery, can be downgraded to Med/surg Result Diagram: 03/11/19 0500 03/11/19 0500 Results 24hrs Laboratory Tests Test 03/10/19 09:39 03/10/19 10:20 03/10/19 10:55 03/10/19 17:06 White Blood Count 7.2 7.6 Red Blood Count 1.92 #L 1.92 L Hemoglobin 5.6 #*L 5.6 *L 8.1 #L Hematocrit 17.9 #L 17.8 L 24.3 #L Mean Corpuscular 93.2 92.7 Volume Mean Corpuscular 29.2 29.2 Hemoglobin Mean Corpuscular 31.3 L 31.5 L Hemoglobin Concent Red Cell 14.4 14.3 Distribution Width Platelet Count 143 # 165 Mean Platelet Volume 10.3 10.8 H Immature 1.000 H 0.900 H Granulocytes % Neutrophils % 64.2 Lymphocytes % 20.4 Monocytes % 12.7 H Eosinophils % 1.7 Basophils % 0.0 Nucleated Red Blood 0.0 0.0 Cells % Immature 0.070 H 0.070 H Granulocytes # Neutrophils # 4.6 Lymphocytes # 1.5 Monocytes # 0.9 Eosinophils # 0.1 Basophils # 0.0 Nucleated Red Blood 0.0 Cells # Sodium Level 134 L Potassium Level 4.2 Chloride Level 105 Carbon Dioxide Level 28 Anion Gap 1 L Blood Urea Nitrogen 17 Creatinine 0.92 Est Glomerular Filtrat Rate mL/min Glucose Level 175 Calcium Level 7.4 L Segmented 71 Neutrophils % (Manual) Lymphocytes % 19 (Manual) Monocytes % (Manual) 8 Eosinophils % 2 (Manual) Lymphocytes (Manual) 1.4 Monocytes # (Manual) 0.6 Pathologist YES Review (Hematology) Platelet Estimate NORMAL Anisocytosis 1+ Bedside Glucose 179 Test 03/10/19 17:34 03/10/19 20:14 03/10/19 20:57 03/11/19 01:21 Bedside Glucose 204 177 158 133 Test 03/11/19 05:00 03/11/19 07:48 White Blood Count 8.5 Red Blood Count 2.46 #L Hemoglobin 7.2 L Hematocrit 21.9 L Mean Corpuscular 89.0 Volume Mean Corpuscular 29.3 Hemoglobin Mean Corpuscular 32.9 Hemoglobin Concent Red Cell 15.5 H Distribution Width Platelet Count 125 #L Mean Platelet Volume 11.5 H Immature 0.900 H Granulocytes % Neutrophils % 69.5 Lymphocytes % 14.3 L Monocytes % 13.9 H Eosinophils % 1.2 Basophils % 0.2 Nucleated Red Blood 0.0 Cells % Immature 0.080 H Granulocytes # Neutrophils # 5.9 Lymphocytes # 1.2 Monocytes # 1.2 H Eosinophils # 0.1 Basophils # 0.0 Nucleated Red Blood 0.0 Cells # Sodium Level 131 L Potassium Level 4.0 Chloride Level 102 Carbon Dioxide Level 27 Anion Gap 2 L Blood Urea Nitrogen 16 Creatinine 0.85 Glucose Level 131 # Calcium Level 7.3 L Phosphorus Level 3.1 Magnesium Level 1.7 Albumin 2.1 L Bedside Glucose 146 Subjective 24 Hr Interval Summary Free Text/Dictation Patient in pain this am but given Morphine for relief. No acute overnight events. Denies any chest pain or shortness of breath. Exam/Review of Systems Exam Vitals Vital Signs Date Temp Pulse Resp B/P (MAP) Pulse Ox O2 O2 Flow FiO2 Time Delivery Rate 03/11/19 98.7 73 18 124/59 100 Nasal 08:00 (80) Cannula 03/11/19 3.0 08:00 03/10/19 20:07 Intake and Output 03/10/19 03/10/19 03/11/19 1515:00 23:00 07:00 IntakeIntake Total 1703.0 ml 1125 ml 1000 ml OutputOutput Total 310 ml 460 ml 420 ml BalanceBalance 1393.0 ml 665 ml 580 ml Exam General: distress secondary to pain Neck: Supple Chest: Nontender Lungs: Clear to auscultation bilaterally no crackles rales or wheezing Heart: Normal S1-S2, Regular rhythm and rate. No murmur, S3, or S4 Abdomen: Soft , nontender, nondistended , bowel sounds are present. No guarding no rebound tenderness Extremities: right lower extremity dressing in place. skin: no rashes or lesions appreciated. right great toe with necrosis but no discharge or drainage Results Results 24hrs Laboratory Tests Test 03/10/19 09:39 03/10/19 10:20 03/10/19 10:55 03/10/19 17:06 White Blood Count 7.2 7.6 Red Blood Count 1.92 #L 1.92 L Hemoglobin 5.6 #*L 5.6 *L 8.1 #L Hematocrit 17.9 #L 17.8 L 24.3 #L Mean Corpuscular 93.2 92.7 Volume Mean Corpuscular 29.2 29.2 Hemoglobin Mean Corpuscular 31.3 L 31.5 L Hemoglobin Concent Red Cell 14.4 14.3 Distribution Width Platelet Count 143 # 165 Mean Platelet Volume 10.3 10.8 H Immature 1.000 H 0.900 H Granulocytes % Neutrophils % 64.2 Lymphocytes % 20.4 Monocytes % 12.7 H Eosinophils % 1.7 Basophils % 0.0 Nucleated Red Blood 0.0 0.0 Cells % Immature 0.070 H 0.070 H Granulocytes # Neutrophils # 4.6 Lymphocytes # 1.5 Monocytes # 0.9 Eosinophils # 0.1 Basophils # 0.0 Nucleated Red Blood 0.0 Cells # Sodium Level 134 L Potassium Level 4.2 Chloride Level 105 Carbon Dioxide Level 28 Anion Gap 1 L Blood Urea Nitrogen 17 Creatinine 0.92 Est Glomerular Filtrat Rate mL/min Glucose Level 175 Calcium Level 7.4 L Segmented 71 Neutrophils % (Manual) Lymphocytes % 19 (Manual) Monocytes % (Manual) 8 Eosinophils % 2 (Manual) Lymphocytes (Manual) 1.4 Monocytes # (Manual) 0.6 Pathologist YES Review (Hematology) Platelet Estimate NORMAL Anisocytosis 1+ Bedside Glucose 179 Test 03/10/19 17:34 03/10/19 20:14 03/10/19 20:57 03/11/19 01:21 Bedside Glucose 204 177 158 133 Test 03/11/19 05:00 03/11/19 07:48 White Blood Count 8.5 Red Blood Count 2.46 #L Hemoglobin 7.2 L Hematocrit 21.9 L Mean Corpuscular 89.0 Volume Mean Corpuscular 29.3 Hemoglobin Mean Corpuscular 32.9 Hemoglobin Concent Red Cell 15.5 H Distribution Width Platelet Count 125 #L Mean Platelet Volume 11.5 H Immature 0.900 H Granulocytes % Neutrophils % 69.5 Lymphocytes % 14.3 L Monocytes % 13.9 H Eosinophils % 1.2 Basophils % 0.2 Nucleated Red Blood 0.0 Cells % Immature 0.080 H Granulocytes # Neutrophils # 5.9 Lymphocytes # 1.2 Monocytes # 1.2 H Eosinophils # 0.1 Basophils # 0.0 Nucleated Red Blood 0.0 Cells # Sodium Level 131 L Potassium Level 4.0 Chloride Level 102 Carbon Dioxide Level 27 Anion Gap 2 L Blood Urea Nitrogen 16 Creatinine 0.85 Glucose Level 131 # Calcium Level 7.3 L Phosphorus Level 3.1 Magnesium Level 1.7 Albumin 2.1 L Bedside Glucose 146 Medications Medication Current Medications Ondansetron HCl (Zofran Inj) 4 mg Q6H PRN IV NAUSEA AND/OR VOMITING Last administered on 02/21/19at 06:47; Admin Dose 4 MG; Start 02/21/19 at 01:30 Acetaminophen (Tylenol Liquid) 650 mg Q6H PRN PO PAIN LEVEL 1-3 OR FEVER Last administered on 03/06/19at 12:16; Admin Dose 650 MG; Start 02/21/19 at 01:30 Acetaminophen/ Hydrocodone Bitart ([place] (5/325)) 1 tab Q6H PRN PO PAIN LEVEL 4-6 Last administered on 03/10/19at 17:09; Admin Dose 1 TAB; Start 02/21/19 at 01:30 Atorvastatin Calcium (Lipitor) 40 mg QHS PO Last administered on 03/10/19at 21:28; Admin Dose 40 MG; Start 02/21/19 at 21:00 Carvedilol (Coreg) 3.125 mg BID PO Last administered on 03/10/19at 21:29; Admin Dose 3.125 MG; Start 02/21/19 at 09:00 Ferrous Sulfate (Ferrous Sulfate (Ec)) 325 mg QAM PO Last administered on 03/10/19at 10:57; Admin Dose 325 MG; Start 02/21/19 at 09:00 Miscellaneous Information 1 ea NOTE XX ; Start 02/21/19 at 06:00 Glucose (Glutose) 15 gm Q15M PRN PO DECREASED GLUCOSE; Start 02/21/19 at 06:00 Glucose (Glutose) 22.5 gm Q15M PRN PO DECREASED GLUCOSE; Start 02/21/19 at 06:00 Dextrose (D50w Syringe) 25 ml Q15M PRN IV DECREASED GLUCOSE; Start 02/21/19 at 06:00 Dextrose (D50w Syringe) 50 ml Q15M PRN IV DECREASED GLUCOSE; Start 02/21/19 at 06:00 Glucagon (Glucagen) 1 mg Q15M PRN IM DECREASED GLUCOSE; Start 02/21/19 at 06:00 Glucose (Glutose) 15 gm Q15M PRN BUCCAL DECREASED GLUCOSE; Start 02/21/19 at 06:00 Levothyroxine Sodium (Synthroid) 150 mcg BEFORE BREAKFAST PO Last administered on 03/11/19at 06:00; Admin Dose 150 MCG; Start 02/25/19 at 07:00 Polyethylene Glycol (Miralax) 17 gm DAILY PRN PO CONSTIPATION Last administered on 02/26/19at 21:05; Admin Dose 17 GM; Start 02/25/19 at 10:00 Senna/Docusate Sodium (Senokot-S) 1 tab BID PRN PO constipation; Start 02/25/19 at 10:00 Bisacodyl (Dulcolax Supp) 10 mg DAILY PRN [place] CONSTIPATION; Start 02/25/19 at 10:00 Albuterol/ Ipratropium (Duoneb) 3 ml Q6HWA RESP THERAPY HHN Last administered on 03/10/19 20:07; Admin Dose 3 ML; Start 02/26/19 at 20:00 Albuterol/ Ipratropium (Duoneb) 3 ml Q2H RESP THERAPY PRN HHN shortness of breath Last administered on 02/26/19 16:13; Admin Dose 3 ML; Start 02/26/19 at 15:00 Budesonide (Pulmicort (Neb)) 0.5 mg BID RESP THERAPY HHN Last administered on 03/10/19 09:31; Admin Dose 0.5 MG; Start 02/26/19 at 20:00 Famotidine (Pepcid) 20 mg DAILY PO Last administered on 03/10/19 10:56; Admin Dose 20 MG; Start 02/27/19 at 09:00 Guaifenesin/ Codeine Phosphate (Robitussin Ac Liquid Cup) 5 ml Q4H PRN PO cough Last administered on 03/08/19 09:52; Admin Dose 5 ML; Start 03/01/19 at 10:30 Ampicillin 50 ml @ 100 mls/hr Q8 IVPB Last administered on 03/11/19 05:32; Admin Dose 100 MLS/HR; Start 03/02/19 at 22:00 Amlodipine Besylate (Norvasc) 10 mg DAILY PO Last administered on 03/10/19 10:56; Admin Dose 10 MG; Start 03/05/19 at 09:00 Diagnostic Test (Pha) (Accu-Chek) 1 ea 02 XX Last administered on 03/11/19 01:25; Admin Dose 1 EA; Start 03/05/19 at 02:00 Losartan Potassium (Cozaar) 50 mg QPM PO Last administered on 03/10/19 21:29; Admin Dose 50 MG; Start 03/05/19 at 21:00 Insulin Aspart (Novolog Insulin Pen) 10 unit WITH MEALS SC Last administered on 03/11/19 07:50; Admin Dose 10 UNIT; Start 03/05/19 at 11:30 Insulin Glargine (Lantus) 30 units DAILY@2000 SC Last administered on 03/10/19 21:00; Admin Dose 30 UNITS; Start 03/05/19 at 20:00 Hydralazine HCl (Apresoline) 10 mg Q6H PRN IV SBP>160 Last administered on 03/09/19at 12:40; Admin Dose 20 MG; Start 03/05/19 at 11:00 Levofloxacin (Levaquin) 250 mg DAILY@06 PO Last administered on 03/11/19at 05:31; Admin Dose 250 MG; Start 03/09/19 at 06:00 Nicardipine HCl 50 mg/Sodium Chloride 500 ml @ 50 mls/hr TITRATE IV ; Start 03/09/19 at 16:30 Insulin Aspart (Novolog Insulin Pen) NOVOLOG *MILD* ALGORITHM WITH MEALS BEDTIME SC Last administered on 03/11/19at 07:51; Admin Dose 1 UNIT; Start 02/24 01/12 at 17:35 Morphine Sulfate (morphine) 2 mg Q1H PRN IV SEVERE PAIN LEVEL 7-10 Last administered on 03/11/19at 07:39; Admin Dose 2 MG; Start 03/10/19 at 08:00 Morphine Sulfate (morphine) 3 mg Q1H PRN IV SEVERE PAIN LEVEL 7-10; Start 03/10/19 at 08:00 Morphine Sulfate (morphine) 4 mg Q1H PRN IV SEVERE PAIN LEVEL 7-10; Start 03/10/19 at 08:00 Morphine Sulfate (morphine) 5 mg Q1H PRN IV SEVERE PAIN LEVEL 7-10; Start 03/10/19 at 08:00 Sodium Chloride 1,000 ml @ 75 mls/hr [id number] IV ; Start 03/11/19 at 09:00 XUAN PROCTOR MD Mar 11, 2019 09:02
[2019-03-11] MEDS: FAMOTIDINE 20 MG TAB PO SCH (09:08)
[2019-03-11] MEDS: AMLODIPINE 2.5 MG TAB PO SCH (09:08)
[2019-03-11] MEDS: FERROUS SULFATE (EC) 325 MG TAB PO SCH (09:08)
[2019-03-11] MEDS: SOD CHLORIDE 0.9% 1,000 ML IV SCH ×2 (09:08→22:20)
--- NOTE | 2019-03-11 10:52 | PN ---
Date/Time of Note Date/Time of Note DATE: 03/11/19 TIME: 10:47 Assessment/Plan Lines/Catheters IV Catheter Type (from Nrsg): Central Line Goodman in Place (from Nrsg): Yes Assessment/Plan Assessment/Plan Doing well s/p R pop-DP bypass - good graft pulse and foot is well perfused Receiving 2nd u PRBC for postop anemia No more oozing from incisions - restart ASA Lasix 10 IV now Subjective 24 Hr Interval Summary No c/o except incisional pain in the thigh. No more bleeding from the incisions after heparin d/c'd and CORBIN wrapped. Exam/Review of Systems Vital Signs Vitals Vital Signs Date Temp Pulse Resp B/P (MAP) Pulse Ox O2 O2 Flow FiO2 Time Delivery Rate 03/11/19 98.7 73 18 124/59 100 Nasal 08:00 (80) Cannula 03/11/19 3.0 08:00 03/10/19 20:07 Intake and Output 03/10/19 03/10/19 03/11/19 1515:00 23:00 07:00 IntakeIntake Total 1703.0 ml 1125 ml 1000 ml OutputOutput Total 310 ml 460 ml 420 ml BalanceBalance 1393.0 ml 665 ml 580 ml Exam Free Text/Dictation R foot warm and hyperemic, 2+ graft pulse, leg CORBIN wrapped, no oozing or staining, 2+ edema in the foot Results Result Diagram: 03/11/19 0500 03/11/19 0500 ALVIN ENG MD Mar 11, 2019 10:52
[2019-03-11] MEDS ORDERED: FUROSEMIDE 20 MG INJ IV ONE (11:00)
[2019-03-11] MEDS ORDERED: FUROSEMIDE 40 MG INJ IV ONE (11:00)
[2019-03-11] MEDS: ASPIRIN 325 MG TAB PO SCH (11:47)
--- NOTE | 2019-03-11 13:00 | CONS ---
Assessment/Plan Assessment/Plan Hospital Course (Demo Recall) No events overnight patient looks comfortable no fevers WBC 8.5 no shift no bands BUN 16 creatinine 0.85 Indwelling: Right IJ triple-lumen catheter Antimicrobials: Levaquin, ampicillin Microbiology: Right foot wound culture grew REAL and enterococcus species Physical examination: Obese well-developed fragile elderly woman who is alert in no distress. Head atraumatic normocephalic sclera nonicteric neck is supple chest rise symmetrical breath sounds clear heart: S1-S2. Abdomen soft bowel sounds present. Extremities without cyanosis, right foot jonathan wrapped Assessment: 1. Right foot cellulitis with toe gangrene 2. Peripheral arterial disease status post abdominal aortogram with right popliteal artery angioplasty 02/23/19, s/p bypass graft 03/09/19 3. Diabetes 4. CHF Plan: Remains stable, continue antibiotics, vascular surgery/podiatry rec-s pending transfer to telemetry Consultation Date/Type/Reason Admit Date/Time February 20, 2019 at 23:53 Initial Consult Date Type of Consult id Date/Time of Note DATE: 03/11/19 TIME: 13:00 Exam/Review of Systems Exam Vitals Vital Signs Date Temp Pulse Resp B/P (MAP) Pulse Ox O2 O2 Flow FiO2 Time Delivery Rate 03/11/19 98.7 73 18 124/59 100 Nasal 08:00 (80) Cannula 03/11/19 3.0 08:00 03/10/19 20:07 Intake and Output 03/10/19 03/10/19 03/11/19 1515:00 23:00 07:00 IntakeIntake Total 1703.0 ml 1125 ml 1000 ml OutputOutput Total 310 ml 460 ml 420 ml BalanceBalance 1393.0 ml 665 ml 580 ml Results Result Diagram: 03/11/19 0500 03/11/19 0500 Results 24hrs Laboratory Tests Test 03/10/19 17:06 03/10/19 17:34 03/10/19 20:14 03/10/19 20:57 Hemoglobin 8.1 #L Hematocrit 24.3 #L Bedside Glucose 204 177 158 Test 03/11/19 01:21 03/11/19 05:00 03/11/19 07:48 03/11/19 11:39 Bedside Glucose 133 146 173 White Blood Count 8.5 Red Blood Count 2.46 #L Hemoglobin 7.2 L Hematocrit 21.9 L Mean Corpuscular 89.0 Volume Mean Corpuscular 29.3 Hemoglobin Mean Corpuscular 32.9 Hemoglobin Concent Red Cell 15.5 H Distribution Width Platelet Count 125 #L Mean Platelet Volume 11.5 H Immature 0.900 H Granulocytes % Neutrophils % 69.5 Lymphocytes % 14.3 L Monocytes % 13.9 H Eosinophils % 1.2 Basophils % 0.2 Nucleated Red Blood 0.0 Cells % Immature 0.080 H Granulocytes # Neutrophils # 5.9 Lymphocytes # 1.2 Monocytes # 1.2 H Eosinophils # 0.1 Basophils # 0.0 Nucleated Red Blood 0.0 Cells # Sodium Level 131 L Potassium Level 4.0 Chloride Level 102 Carbon Dioxide Level 27 Anion Gap 2 L Blood Urea Nitrogen 16 Creatinine 0.85 Glucose Level 131 # Calcium Level 7.3 L Phosphorus Level 3.1 Magnesium Level 1.7 Albumin 2.1 L Medications Medication Current Medications Ondansetron HCl (Zofran Inj) 4 mg Q6H PRN IV NAUSEA AND/OR VOMITING Last administered on 02/21/19 06:47; Admin Dose 4 MG; Start 02/21/19 at 01:30 Acetaminophen (Tylenol Liquid) 650 mg Q6H PRN PO PAIN LEVEL 1-3 OR FEVER Last administered on 03/06/19 12:16; Admin Dose 650 MG; Start 02/21/19 at 01:30 Acetaminophen/ Hydrocodone Bitart ([place] (5/325)) 1 tab Q6H PRN PO PAIN LEVEL 4-6 Last administered on 03/10/19 17:09; Admin Dose 1 TAB; Start 02/21/19 at 01:30 Atorvastatin Calcium (Lipitor) 40 mg QHS PO Last administered on 03/10/19 21:28; Admin Dose 40 MG; Start 02/21/19 at 21:00 Carvedilol (Coreg) 3.125 mg BID PO Last administered on 03/11/19 09:09; Admin Dose 3.125 MG; Start 02/21/19 at 09:00 Ferrous Sulfate (Ferrous Sulfate (Ec)) 325 mg QAM PO Last administered on 03/11/19 09:08; Admin Dose 325 MG; Start 02/21/19 at 09:00 Miscellaneous Information 1 ea NOTE XX ; Start 02/21/19 at 06:00 Glucose (Glutose) 15 gm Q15M PRN PO DECREASED GLUCOSE; Start 02/21/19 at 06:00 Glucose (Glutose) 22.5 gm Q15M PRN PO DECREASED GLUCOSE; Start 02/21/19 at 06:00 Dextrose (D50w Syringe) 25 ml Q15M PRN IV DECREASED GLUCOSE; Start 02/21/19 at 06:00 Dextrose (D50w Syringe) 50 ml Q15M PRN IV DECREASED GLUCOSE; Start 02/21/19 at 06:00 Glucagon (Glucagen) 1 mg Q15M PRN IM DECREASED GLUCOSE; Start 02/21/19 at 06:00 Glucose (Glutose) 15 gm Q15M PRN BUCCAL DECREASED GLUCOSE; Start 02/21/19 at 06:00 Levothyroxine Sodium (Synthroid) 150 mcg BEFORE BREAKFAST PO Last administered on 03/11/19at 06:00; Admin Dose 150 MCG; Start 02/25/19 at 07:00 Polyethylene Glycol (Miralax) 17 gm DAILY PRN PO CONSTIPATION Last administered on 02/26/19at 21:05; Admin Dose 17 GM; Start 02/25/19 at 10:00 Senna/Docusate Sodium (Senokot-S) 1 tab BID PRN PO constipation; Start 02/25/19 at 10:00 Bisacodyl (Dulcolax Supp) 10 mg DAILY PRN [place] CONSTIPATION; Start 02/25/19 at 10:00 Albuterol/ Ipratropium (Duoneb) 3 ml Q6HWA RESP THERAPY HHN Last administered on 03/10/19at 20:07; Admin Dose 3 ML; Start 02/26/19 at 20:00 Albuterol/ Ipratropium (Duoneb) 3 ml Q2H RESP THERAPY PRN HHN shortness of breath Last administered on 02/26/19at 16:13; Admin Dose 3 ML; Start 02/26/19 at 15:00 Budesonide (Pulmicort (Neb)) 0.5 mg BID RESP THERAPY HHN Last administered on 03/10/19at 09:31; Admin Dose 0.5 MG; Start 02/26/19 at 20:00 Famotidine (Pepcid) 20 mg DAILY PO Last administered on 03/11/19at 09:08; Admin Dose 20 MG; Start 02/27/19 at 09:00 Guaifenesin/ Codeine Phosphate (Robitussin Ac Liquid Cup) 5 ml Q4H PRN PO cough Last administered on 03/08/19 09:52; Admin Dose 5 ML; Start 03/01/19 at 10:30 Ampicillin 50 ml @ 100 mls/hr Q8 IVPB Last administered on 03/11/19 05:32; Admin Dose 100 MLS/HR; Start 03/02/19 at 22:00 Amlodipine Besylate (Norvasc) 10 mg DAILY PO Last administered on 03/11/19 09:08; Admin Dose 10 MG; Start 03/05/19 at 09:00 Diagnostic Test (Pha) (Accu-Chek) 1 ea 02 XX Last administered on 03/11/19 01:25; Admin Dose 1 EA; Start 03/05/19 at 02:00 Losartan Potassium (Cozaar) 50 mg QPM PO Last administered on 03/10/19 21:29; Admin Dose 50 MG; Start 03/05/19 at 21:00 Insulin Aspart (Novolog Insulin Pen) 10 unit WITH MEALS SC Last administered on 03/11/19 11:40; Admin Dose 10 UNIT; Start 03/05/19 at 11:30 Insulin Glargine (Lantus) 30 units DAILY@2000 SC Last administered on 03/10/19 21:00; Admin Dose 30 UNITS; Start 03/05/19 at 20:00 Hydralazine HCl (Apresoline) 10 mg Q6H PRN IV SBP>160 Last administered on 03/09/19 12:40; Admin Dose 20 MG; Start 03/05/19 at 11:00 Levofloxacin (Levaquin) 250 mg DAILY@06 PO Last administered on 03/11/19 05:31; Admin Dose 250 MG; Start 03/09/19 at 06:00 Nicardipine HCl 50 mg/Sodium Chloride 500 ml @ 50 mls/hr TITRATE IV ; Start 03/09/19 at 16:30 Insulin Aspart (Novolog Insulin Pen) NOVOLOG *MILD* ALGORITHM WITH MEALS BEDTIME SC Last administered on 03/11/19 11:41; Admin Dose 1 UNIT; Start 03/09/19 at 17:35 Morphine Sulfate (morphine) 2 mg Q1H PRN IV SEVERE PAIN LEVEL 7-10 Last administered on 6/16/19at 12:39; Admin Dose 2 MG; Start 03/10/19 at 08:00 Morphine Sulfate (morphine) 3 mg Q1H PRN IV SEVERE PAIN LEVEL 7-10; Start 03/10/19 at 08:00 Morphine Sulfate (morphine) 4 mg Q1H PRN IV SEVERE PAIN LEVEL 7-10; Start 02/24 02/11 at 08:00 Morphine Sulfate (morphine) 5 mg Q1H PRN IV SEVERE PAIN LEVEL 7-10; Start 03/10/19 at 08:00 Sodium Chloride 1,000 ml @ 75 mls/hr [id number] IV Last administered on 03/11/19at 09:08; Admin Dose 75 MLS/HR; Start 03/11/19 at 09:00 Aspirin (Aspirin) 325 mg DAILY PO Last administered on 03/11/19at 11:47; Admin Dose 325 MG; Start 03/11/19 at 11:30 TORI GARCIA NP Mar 11, 2019 13:00
[2019-03-11] MEDS: HYDROCODONE/APAP (5/325) TAB PO PRN (15:42)
[2019-03-11] MEDS: ATORVASTATIN 40 MG TAB PO SCH (20:11)
[2019-03-11] MEDS: LOSARTAN 50 MG TAB PO SCH (20:11)
[2019-03-11] MEDS: INSULIN GLARGINE [LANTus] (100 UNITS/ML) SYG SC SCH (20:18)
[2019-03-12] VITALS (12 sets, daily range): BP systolic 117–144; BP diastolic 57–66; PULSE 63–172; RESP 17–20
[2019-03-12] MEDS: morphine 2 MG INJ IV PRN (00:20)
[2019-03-12] MEDS: ACCU-CHEK XX SCH (02:25)
[2019-03-12] MEDS ORDERED: MAGNESIUM SULFATE 2 GM/50 ML 50 ML IVPB ONE (02:30)
[2019-03-12] MEDS: SOD CHLORIDE 0.9% 1,000 ML IV SCH (02:52)
[2019-03-12] MEDS: LEVOFLOXACIN 250 MG TAB PO SCH (06:11)
[2019-03-12] MEDS: LEVOTHYROXINE 150 MCG TAB PO SCH (06:11)
[2019-03-12] MEDS: AMPICILLIN 1 GM/NS (PMX) 50 ML IVPB SCH ×3 (06:12→22:04)
--- NOTE | 2019-03-12 07:38 | QN ---
Documentation Comment No new c/o. AFVSS L leg wrapped, no bleeding, old blood on the dressings 2+ graft pulse, foot is warm and hyperemic Hg 7.9 - stable - change the dressings today - for 1st toe amp tomorrow ALVIN ENG MD Mar 12, 2019 07:38
[2019-03-12] MEDS: ALBUTEROL/IPRATROPIUM (NEB) 3 ML AMP HHN SCH ×3 (08:00→20:00)
[2019-03-12] MEDS: HYDROCODONE/APAP (5/325) TAB PO PRN ×2 (08:15→14:19)
[2019-03-12] MEDS: INSULIN ASPART [NOVOLOG] 3 ML PEN SC SCH ×7 (08:27→21:00)
[2019-03-12] MEDS: ASPIRIN 325 MG TAB PO SCH (08:42)
[2019-03-12] MEDS: AMLODIPINE 2.5 MG TAB PO SCH (08:43)
[2019-03-12] MEDS: FAMOTIDINE 20 MG TAB PO SCH (08:43)
[2019-03-12] MEDS: FERROUS SULFATE (EC) 325 MG TAB PO SCH (08:43)
[2019-03-12] MEDS: BUDESONIDE (NEB) 0.5MG/2ML AMP HHN SCH ×2 (09:00→20:00)
[2019-03-12] MEDS: POLYETHYLENE GLYCOL 17 GM PACKET PO PRN (09:01)
--- NOTE | 2019-03-12 11:28 | PN ---
Date/Time of Note Date/Time of Note DATE: 03/12/19 TIME: 11:26 Objective Vitals Vital Signs Date Temp Pulse Resp B/P (MAP) Pulse Ox O2 O2 Flow FiO2 Time Delivery Rate 03/12/19 69 08:00 03/12/19 98.6 18 125/60 97 07:28 (81) 03/12/19 2.0 01:39 03/11/19 Nasal 20:36 Cannula 03/10/19 20:07 Intake and Output 03/11/19 03/11/19 03/12/19 1515:00 23:00 07:00 IntakeIntake Total 1060 ml 270 ml 350 ml OutputOutput Total 1675 ml 650 ml 1300 ml BalanceBalance -615 ml -380 ml -950 ml Results Result Diagram: 03/12/1961603/12/19616 Medications Medications Current Medications Ondansetron HCl (Zofran Inj) 4 mg Q6H PRN IV NAUSEA AND/OR VOMITING Last administered on 02/21/19at 06:47; Admin Dose 4 MG; Start 02/21/19 at 01:30 Acetaminophen (Tylenol Liquid) 650 mg Q6H PRN PO PAIN LEVEL 1-3 OR FEVER Last administered on 03/06/19at 12:16; Admin Dose 650 MG; Start 02/21/19 at 01:30 Acetaminophen/ Hydrocodone Bitart ([place] (5/325)) 1 tab Q6H PRN PO PAIN LEVEL 4-6 Last administered on 03/12/19at 08:15; Admin Dose 1 TAB; Start 02/21/19 at 01:30 Atorvastatin Calcium (Lipitor) 40 mg QHS PO Last administered on 03/11/19at 20:11; Admin Dose 40 MG; Start 02/21/19 at 21:00 Carvedilol (Coreg) 3.125 mg BID PO Last administered on 03/12/19at 08:43; Admin Dose 3.125 MG; Start 02/21/19 at 09:00 Ferrous Sulfate (Ferrous Sulfate (Ec)) 325 mg QAM PO Last administered on 03/12/19at 08:43; Admin Dose 325 MG; Start 02/21/19 at 09:00 Miscellaneous Information 1 ea NOTE XX ; Start 02/21/19 at 06:00 Glucose (Glutose) 15 gm Q15M PRN PO DECREASED GLUCOSE; Start 02/21/19 at 06:00 Glucose (Glutose) 22.5 gm Q15M PRN PO DECREASED GLUCOSE; Start 02/21/19 at 06:00 Dextrose (D50w Syringe) 25 ml Q15M PRN IV DECREASED GLUCOSE; Start 02/21/19 at 06:00 Dextrose (D50w Syringe) 50 ml Q15M PRN IV DECREASED GLUCOSE; Start 02/21/19 at 06:00 Glucagon (Glucagen) 1 mg Q15M PRN IM DECREASED GLUCOSE; Start 02/21/19 at 06:00 Glucose (Glutose) 15 gm Q15M PRN BUCCAL DECREASED GLUCOSE; Start 02/21/19 at 06 :00 Levothyroxine Sodium (Synthroid) 150 mcg BEFORE BREAKFAST PO Last administered on 03/12/19 06:11; Admin Dose 150 MCG; Start 02/25/19 at 07:00 Polyethylene Glycol (Miralax) 17 gm DAILY PRN PO CONSTIPATION Last administered on 03/12/19 09:01; Admin Dose 17 GM; Start 02/25/19 at 10:00 Senna/Docusate Sodium (Senokot-S) 1 tab BID PRN PO constipation Last administered on 03/12/19 09:01; Admin Dose 1 TAB; Start 02/25/19 at 10:00 Bisacodyl (Dulcolax Supp) 10 mg DAILY PRN [place] CONSTIPATION; Start 02/25/19 at 10:00 Albuterol/ Ipratropium (Duoneb) 3 ml Q6HWA RESP THERAPY HHN Last administered on 03/11/19at 20:33; Admin Dose 3 ML; Start 02/26/19 at 20:00 Albuterol/ Ipratropium (Duoneb) 3 ml Q2H RESP THERAPY PRN HHN shortness of breath Last administered on 02/26/19 16:13; Admin Dose 3 ML; Start 02/26/19 at 15:00 Budesonide (Pulmicort (Neb)) 0.5 mg BID RESP THERAPY HHN Last administered on 03/10/19 09:31; Admin Dose 0.5 MG; Start 02/26/19 at 20:00 Famotidine (Pepcid) 20 mg DAILY PO Last administered on 03/12/19 08:43; Admin Dose 20 MG; Start 02/27/19 at 09:00 Guaifenesin/ Codeine Phosphate (Robitussin Ac Liquid Cup) 5 ml Q4H PRN PO cough Last administered on 03/08/19 09:52; Admin Dose 5 ML; Start 03/01/19 at 10:30 Ampicillin 50 ml @ 100 mls/hr Q8 IVPB Last administered on 03/12/19 06:12; Admin Dose 100 MLS/HR; Start 03/02/19 at 22:00 Amlodipine Besylate (Norvasc) 10 mg DAILY PO Last administered on 03/12/19 08:43; Admin Dose 10 MG; Start 03/05/19 at 09:00 Diagnostic Test (Pha) (Accu-Chek) 1 ea 02 XX Last administered on 03/12/19 02:25; Admin Dose 1 EA; Start 03/05/19 at 02:00 Losartan Potassium (Cozaar) 50 mg QPM PO Last administered on 03/11/19 20:11; Admin Dose 50 MG; Start 03/05/19 at 21:00 Insulin Aspart (Novolog Insulin Pen) 10 unit WITH MEALS SC Last administered on 03/12/19 08:27; Admin Dose 10 UNIT; Start 03/05/19 at 11:30 Insulin Glargine (Lantus) 30 units DAILY@2000 SC Last administered on 03/11/19 20:18; Admin Dose 30 UNITS; Start 03/05/19 at 20:00 Hydralazine HCl (Apresoline) 10 mg Q6H PRN IV SBP>160 Last administered on 03/09/19 12:40; Admin Dose 20 MG; Start 03/05/19 at 11:00 Levofloxacin (Levaquin) 250 mg DAILY@06 PO Last administered on 03/12/19 06:11; Admin Dose 250 MG; Start 03/09/19 at 06:00 Insulin Aspart (Novolog Insulin Pen) NOVOLOG *MILD* ALGORITHM WITH MEALS BEDTIME SC Last administered on 03/12/19 08:28; Admin Dose 2 UNIT; Start 03/09/19 at 17:35 Morphine Sulfate (morphine) 2 mg Q1H PRN IV SEVERE PAIN LEVEL 7-10 Last administered on 03/12/19 00:20; Admin Dose 2 MG; Start 03/10/19 at 08:00 Morphine Sulfate (morphine) 3 mg Q1H PRN IV SEVERE PAIN LEVEL 7-10; Start 03/10/19 at 08:00 Morphine Sulfate (morphine) 4 mg Q1H PRN IV SEVERE PAIN LEVEL 7-10; Start 03/10/19 at 08:00 Morphine Sulfate (morphine) 5 mg Q1H PRN IV SEVERE PAIN LEVEL 7-10; Start 03/10/19 at 08:00 Aspirin (Aspirin) 325 mg DAILY PO Last administered on 03/12/19at 08:42; Admin Dose 325 MG; Start 03/11/19 at 11:30 VTE Prophylaxis Risk score (from Ns)>0 risk: 8 SCD applied (from [facility] [place]): Yes Lines/Catheters IV Catheter Type: Goodman in Place: No Assessment/Plan Hospital Course Subjective Patient feeling well, but complains of no bowel movement. Objective Physical exam General: Patient is laying in bed and answers questions appropriately Mentation: Patient is alert and oriented 4, Head: Normocephalic atraumatic Eyes: EOMI, pupils reactive to light Neck: Supple, nontender, midline Respiratory: No wheezing to auscultation bilaterally Cardiovascular: regular rate, no obvious murmurs Gastrointestinal: non-tender to palpation, bowel sounds heard. Neurological: Moves all extremities spontaneously Skin: Surgical site bandaged, CDI Assessment/Plan 1. Right great toe with gas gangrene s/p I&D 02/21 - Vascular surgery on board and appreciate consultation. Patient is s/p right popliteal to dorsalis pedis bypass 03/09. restarted aspirin per vascular surgeon, monitor hemoglobin closely - ID on board and will continue antibiotics at this time - Per podiatry will plan for amputation of R toe on Tuesday - pain control - Continue local wound care and dressing changes 2. Peripheral artery disease s/p R pop-Dp bypass - Vascular input appreciated 3. Acute blood loss anemia -Transfuse as needed, monitor closely 4. Poorly controlled diabetes mellitus - A1c noted - Stable - continue insulin and will adjust for better control 5. CAD s/p PCI - continue aspirin/statin/beta-blockers - Cardiology consultation appreciated. 6. HTN - stable - continue current medications 7. Hypothyroidism - Continue Synthroid - will need outpatient repeat thyroid studies in 4-6 weeks 8. Hyperlipidemia - continue statin 9. Disposition -Continue hemoglobin transfusion as needed, podiatry to plan surgery tomorrow. BRADLEY LEONG Mar 12, 2019 11:28
--- NOTE | 2019-03-12 15:59 | CONS ---
Assessment/Plan Assessment/Plan Hospital Course (Demo Recall) No events overnight patient was tx to tele, awake, looks comfortable Indwelling: Right IJ triple-lumen catheter Antimicrobials: Levaquin, ampicillin Microbiology: Right foot wound culture grew REAL and enterococcus species Physical examination: Obese well-developed fragile elderly woman who is alert in no distress. Head atraumatic normocephalic sclera nonicteric neck is supple chest rise symmetrical breath sounds clear heart: S1-S2. Abdomen soft bowel sounds present. Extremities without cyanosis, right foot jonathan wrapped Assessment: 1. Right foot cellulitis with toe gangrene 2. Peripheral arterial disease status post abdominal aortogram with right popliteal artery angioplasty 02/23/19, s/p bypass graft 03/09/19 3. Diabetes 4. CHF Plan: Remains stable, continue antibiotics, f/u vascular surgery/podiatry rec-s Consultation Date/Type/Reason Admit Date/Time February 20, 2019 at 23:53 Initial Consult Date Type of Consult id Date/Time of Note DATE: 03/12/19 TIME: 15:59 Exam/Review of Systems Exam Vitals Vital Signs Date Temp Pulse Resp B/P (MAP) Pulse Ox O2 O2 Flow FiO2 Time Delivery Rate 03/12/19 98.2 66 18 122/57 92 15:13 (78) 03/12/19 2.0 09:15 03/11/19 Nasal 20:36 Cannula 03/10/19 20:07 Intake and Output 03/11/19 03/11/19 03/12/19 1515:00 23:00 07:00 IntakeIntake Total 1060 ml 270 ml 350 ml OutputOutput Total 1675 ml 650 ml 1300 ml BalanceBalance -615 ml -380 ml -950 ml Results Result Diagram: 03/12/19 0617 03/12/19 0617 Results 24hrs Laboratory Tests Test 03/11/19 17:01 03/11/19 20:09 03/12/19 01:36 03/12/19 06:17 Bedside Glucose 71 168 174 White Blood Count 7.5 Red Blood Count 2.67 L Hemoglobin 7.9 L Hematocrit 24.1 L Mean Corpuscular 90.3 Volume Mean Corpuscular 29.6 Hemoglobin Mean Corpuscular 32.8 Hemoglobin Concent Red Cell 14.7 H Distribution Width Platelet Count 124 L Mean Platelet Volume 10.9 H Immature 0.800 H Granulocytes % Neutrophils % 72.1 Lymphocytes % 13.4 L Monocytes % 12.6 H Eosinophils % 0.8 Basophils % 0.3 Nucleated Red Blood 0.0 Cells % Immature 0.060 H Granulocytes # Neutrophils # 5.4 Lymphocytes # 1.0 Monocytes # 1.0 H Eosinophils # 0.1 Basophils # 0.0 Nucleated Red Blood 0.0 Cells # Sodium Level 133 L Potassium Level 3.8 Chloride Level 103 Carbon Dioxide Level 26 Anion Gap 4 L Blood Urea Nitrogen 16 Creatinine 0.86 Glucose Level 161 Calcium Level 7.6 L Phosphorus Level 3.5 Magnesium Level 2.4 Albumin 2.3 L Test 03/12/19 08:13 03/12/19 11:46 Bedside Glucose 187 121 Medications Medication Current Medications Ondansetron HCl (Zofran Inj) 4 mg Q6H PRN IV NAUSEA AND/OR VOMITING Last administered on 02/21/19at 06:47; Admin Dose 4 MG; Start 02/21/19 at 01:30 Acetaminophen (Tylenol Liquid) 650 mg Q6H PRN PO PAIN LEVEL 1-3 OR FEVER Last administered on 03/06/19at 12:16; Admin Dose 650 MG; Start 02/21/19 at 01:30 Acetaminophen/ Hydrocodone Bitart ([place] (5/325)) 1 tab Q6H PRN PO PAIN LEVEL 4-6 Last administered on 03/12/19at 14:19; Admin Dose 1 TAB; Start 02/21/19 at 01:30 Atorvastatin Calcium (Lipitor) 40 mg QHS PO Last administered on 03/11/19at 20:11; Admin Dose 40 MG; Start 02/21/19 at 21:00 Carvedilol (Coreg) 3.125 mg BID PO Last administered on 03/12/19at 08:43; Admin Dose 3.125 MG; Start 02/21/19 at 09:00 Ferrous Sulfate (Ferrous Sulfate (Ec)) 325 mg QAM PO Last administered on 03/12/19at 08:43; Admin Dose 325 MG; Start 02/21/19 at 09:00 Miscellaneous Information 1 ea NOTE XX ; Start 02/21/19 at 06:00 Glucose (Glutose) 15 gm Q15M PRN PO DECREASED GLUCOSE; Start 02/21/19 at 06:00 Glucose (Glutose) 22.5 gm Q15M PRN PO DECREASED GLUCOSE; Start 02/21/19 at 06:00 Dextrose (D50w Syringe) 25 ml Q15M PRN IV DECREASED GLUCOSE; Start 02/21/19 at 06:00 Dextrose (D50w Syringe) 50 ml Q15M PRN IV DECREASED GLUCOSE; Start 02/21/19 at 06:00 Glucagon (Glucagen) 1 mg Q15M PRN IM DECREASED GLUCOSE; Start 02/21/19 at 06:00 Glucose (Glutose) 15 gm Q15M PRN BUCCAL DECREASED GLUCOSE; Start 02/21/19 at 06:00 Levothyroxine Sodium (Synthroid) 150 mcg BEFORE BREAKFAST PO Last administered on 03/12/19 06:11; Admin Dose 150 MCG; Start 02/25/19 at 07:00 Polyethylene Glycol (Miralax) 17 gm DAILY PRN PO CONSTIPATION Last administered on 03/12/19 09:01; Admin Dose 17 GM; Start 02/25/19 at 10:00 Senna/Docusate Sodium (Senokot-S) 1 tab BID PRN PO constipation Last administered on 03/12/19 09:01; Admin Dose 1 TAB; Start 02/25/19 at 10:00 Bisacodyl (Dulcolax Supp) 10 mg DAILY PRN [place] CONSTIPATION; Start 02/25/19 at 10:00 Albuterol/ Ipratropium (Duoneb) 3 ml Q6HWA RESP THERAPY HHN Last administered on 03/11/19at 20:33; Admin Dose 3 ML; Start 02/26/19 at 20:00 Albuterol/ Ipratropium (Duoneb) 3 ml Q2H RESP THERAPY PRN HHN shortness of breath Last administered on 02/26/19at 16:13; Admin Dose 3 ML; Start 02/26/19 at 15:00 Budesonide (Pulmicort (Neb)) 0.5 mg BID RESP THERAPY HHN Last administered on 03/10/19 09:31; Admin Dose 0.5 MG; Start 02/26/19 at 20:00 Famotidine (Pepcid) 20 mg DAILY PO Last administered on 03/12/19 08:43; Admin Dose 20 MG; Start 02/27/19 at 09:00 Guaifenesin/ Codeine Phosphate (Robitussin Ac Liquid Cup) 5 ml Q4H PRN PO cough Last administered on 03/08/19 09:52; Admin Dose 5 ML; Start 03/01/19 at 10:30 Ampicillin 50 ml @ 100 mls/hr Q8 IVPB Last administered on 03/12/19 15:05; Admin Dose 100 MLS/HR; Start 03/02/19 at 22:00 Amlodipine Besylate (Norvasc) 10 mg DAILY PO Last administered on 03/12/19 08:43; Admin Dose 10 MG; Start 03/05/19 at 09:00 Diagnostic Test (Pha) (Accu-Chek) 1 ea 02 XX Last administered on 03/12/19 02:25; Admin Dose 1 EA; Start 03/05/19 at 02:00 Losartan Potassium (Cozaar) 50 mg QPM PO Last administered on 03/11/19 20:11; Admin Dose 50 MG; Start 03/05/19 at 21:00 Insulin Aspart (Novolog Insulin Pen) 10 unit WITH MEALS SC Last administered on 03/12/19 11:51; Admin Dose 10 UNIT; Start 03/05/19 at 11:30 Insulin Glargine (Lantus) 30 units DAILY@2000 SC Last administered on 03/11/19 20:18; Admin Dose 30 UNITS; Start 03/05/19 at 20:00 Hydralazine HCl (Apresoline) 10 mg Q6H PRN IV SBP>160 Last administered on 03/09/19 12:40; Admin Dose 20 MG; Start 03/05/19 at 11:00 Levofloxacin (Levaquin) 250 mg DAILY@06 PO Last administered on 03/12/19 06:11; Admin Dose 250 MG; Start 03/09/19 at 06:00 Insulin Aspart (Novolog Insulin Pen) NOVOLOG *MILD* ALGORITHM WITH MEALS BEDTIME SC Last administered on 03/12/19 08:28; Admin Dose 2 UNIT; Start 03/09/19 at 17:35 Morphine Sulfate (morphine) 2 mg Q1H PRN IV SEVERE PAIN LEVEL 7-10 Last administered on 03/12/19 00:20; Admin Dose 2 MG; Start 03/10/19 at 08:00 Morphine Sulfate (morphine) 3 mg Q1H PRN IV SEVERE PAIN LEVEL 7-10; Start 03/10/19 at 08:00 Morphine Sulfate (morphine) 4 mg Q1H PRN IV SEVERE PAIN LEVEL 7-10; Start 03/10/19 at 08:00 Morphine Sulfate (morphine) 5 mg Q1H PRN IV SEVERE PAIN LEVEL 7-10; Start 03/10/19 at 08:00 Aspirin (Aspirin) 325 mg DAILY PO Last administered on 03/12/19at 08:42; Admin Dose 325 MG; Start 03/11/19 at 11:30 TORI GARCIA NP Mar 12, 2019 15:59
[2019-03-12] MEDS: ATORVASTATIN 40 MG TAB PO SCH (21:13)
[2019-03-12] MEDS: LOSARTAN 50 MG TAB PO SCH (21:17)
[2019-03-12] MEDS: INSULIN GLARGINE [LANTus] (100 UNITS/ML) SYG SC SCH (21:34)
[2019-03-13] VITALS (15 sets, daily range): BP systolic 108–131; BP diastolic 55–72; PULSE 60–71; RESP 17–20
[2019-03-13] MEDS: ACCU-CHEK XX SCH (02:19)
[2019-03-13] MEDS: LEVOTHYROXINE 150 MCG TAB PO SCH (06:07)
[2019-03-13] MEDS: AMPICILLIN 1 GM/NS (PMX) 50 ML IVPB SCH ×3 (06:07→22:36)
[2019-03-13] MEDS: LEVOFLOXACIN 250 MG TAB PO SCH (06:07)
[2019-03-13] MEDS: INSULIN ASPART [NOVOLOG] 3 ML PEN SC SCH ×7 (07:55→21:00)
[2019-03-13] MEDS: ALBUTEROL/IPRATROPIUM (NEB) 3 ML AMP HHN SCH ×3 (08:00→20:00)
[2019-03-13] MEDS: BUDESONIDE (NEB) 0.5MG/2ML AMP HHN SCH ×2 (08:31→20:00)
[2019-03-13] MEDS ORDERED: DEXTROSE 5%-0.45% NACL 1,000 ML IV SCH (09:00)
[2019-03-13] MEDS: FERROUS SULFATE (EC) 325 MG TAB PO SCH (09:37)
[2019-03-13] MEDS: ASPIRIN 325 MG TAB PO SCH (09:37)
[2019-03-13] MEDS: AMLODIPINE 2.5 MG TAB PO SCH (09:37)
[2019-03-13] MEDS: FAMOTIDINE 20 MG TAB PO SCH (09:38)
--- NOTE | 2019-03-13 14:11 | PN ---
Date/Time of Note Date/Time of Note DATE: 03/13/19 TIME: 14:10 Objective Vitals Vital Signs Date Temp Pulse Resp B/P (MAP) Pulse Ox O2 O2 Flow FiO2 Time Delivery Rate 03/13/19 60 12:27 03/13/19 98.9 17 124/62 91 11:15 (82) 03/13/19 Nasal 2.0 08:31 Cannula 03/10/19 20:07 Intake and Output 03/12/19 03/12/19 03/13/19 1515:00 23:00 07:00 IntakeIntake Total 450 ml 1480 ml 350 ml OutputOutput Total 2300 ml 800 ml BalanceBalance 450 ml -820 ml -450 ml Results Result Diagram: 03/13/1903 03/13/19602 Medications Medications Current Medications Ondansetron HCl (Zofran Inj) 4 mg Q6H PRN IV NAUSEA AND/OR VOMITING Last administered on 02/21/19at 06:47; Admin Dose 4 MG; Start 02/21/19 at 01:30 Acetaminophen (Tylenol Liquid) 650 mg Q6H PRN PO PAIN LEVEL 1-3 OR FEVER Last administered on 03/06/19at 12:16; Admin Dose 650 MG; Start 02/21/19 at 01:30 Acetaminophen/ Hydrocodone Bitart ([place] (5/325)) 1 tab Q6H PRN PO PAIN LEVEL 4-6 Last administered on 03/12/19at 14:19; Admin Dose 1 TAB; Start 02/21/19 at 01:30 Atorvastatin Calcium (Lipitor) 40 mg QHS PO Last administered on 03/12/19at 21:13; Admin Dose 40 MG; Start 02/21/19 at 21:00 Carvedilol (Coreg) 3.125 mg BID PO Last administered on 03/13/19at 09:37; Admin Dose 3.125 MG; Start 02/21/19 at 09:00 Ferrous Sulfate (Ferrous Sulfate (Ec)) 325 mg QAM PO Last administered on 03/13/19at 09:37; Admin Dose 325 MG; Start 02/21/19 at 09:00 Miscellaneous Information 1 ea NOTE XX ; Start 02/21/19 at 06:00 Glucose (Glutose) 15 gm Q15M PRN PO DECREASED GLUCOSE; Start 02/21/19 at 06:00 Glucose (Glutose) 22.5 gm Q15M PRN PO DECREASED GLUCOSE; Start 02/21/19 at 06:00 Dextrose (D50w Syringe) 25 ml Q15M PRN IV DECREASED GLUCOSE; Start 02/21/19 at 06:00 Dextrose (D50w Syringe) 50 ml Q15M PRN IV DECREASED GLUCOSE; Start 02/21/19 at 06:00 Glucagon (Glucagen) 1 mg Q15M PRN IM DECREASED GLUCOSE; Start 02/21/19 at 06:00 Glucose (Glutose) 15 gm Q15M PRN BUCCAL DECREASED GLUCOSE; Start 02/21/19 at 06:00 Levothyroxine Sodium (Synthroid) 150 mcg BEFORE BREAKFAST PO Last administered on 03/13/19 06:07; Admin Dose 150 MCG; Start 02/25/19 at 07:00 Polyethylene Glycol (Miralax) 17 gm DAILY PRN PO CONSTIPATION Last administered on 03/12/19 09:01; Admin Dose 17 GM; Start 02/25/19 at 10:00 Senna/Docusate Sodium (Senokot-S) 1 tab BID PRN PO constipation Last administered on 03/12/19 09:01; Admin Dose 1 TAB; Start 02/25/19 at 10:00 Bisacodyl (Dulcolax Supp) 10 mg DAILY PRN [place] CONSTIPATION; Start 02/25/19 at 10:00 Albuterol/ Ipratropium (Duoneb) 3 ml Q6HWA RESP THERAPY HHN Last administered on 03/11/19 20:33; Admin Dose 3 ML; Start 02/26/19 at 20:00 Albuterol/ Ipratropium (Duoneb) 3 ml Q2H RESP THERAPY PRN HHN shortness of breath Last administered on 02/26/19 16:13; Admin Dose 3 ML; Start 02/26/19 at 15:00 Budesonide (Pulmicort (Neb)) 0.5 mg BID RESP THERAPY HHN Last administered on 03/10/19 09:31; Admin Dose 0.5 MG; Start 02/26/19 at 20:00 Famotidine (Pepcid) 20 mg DAILY PO Last administered on 03/13/19 09:38; Admin Dose 20 MG; Start 02/27/19 at 09:00 Guaifenesin/ Codeine Phosphate (Robitussin Ac Liquid Cup) 5 ml Q4H PRN PO cough Last administered on 03/08/19 09:52; Admin Dose 5 ML; Start 03/01/19 at 10:30 Ampicillin 50 ml @ 100 mls/hr Q8 IVPB Last administered on 03/13/19 06:07; Admin Dose 100 MLS/HR; Start 03/02/19 at 22:00 Amlodipine Besylate (Norvasc) 10 mg DAILY PO Last administered on 03/13/19 0 9:37; Admin Dose 10 MG; Start 03/05/19 at 09:00 Diagnostic Test (Pha) (Accu-Chek) 1 ea 02 XX Last administered on 03/13/19 02:19; Admin Dose 1 EA; Start 03/05/19 at 02:00 Losartan Potassium (Cozaar) 50 mg QPM PO Last administered on 03/12/19 21:17; Admin Dose 50 MG; Start 03/05/19 at 21:00 Insulin Aspart (Novolog Insulin Pen) 10 unit WITH MEALS SC Last administered on 03/12/19 11:51; Admin Dose 10 UNIT; Start 03/05/19 at 11:30 Insulin Glargine (Lantus) 30 units DAILY@2000 SC Last administered on 03/12/19 21:34; Admin Dose 30 UNITS; Start 03/05/19 at 20:00 Hydralazine HCl (Apresoline) 10 mg Q6H PRN IV SBP>160 Last administered on 03/09/19 12:40; Admin Dose 20 MG; Start 03/05/19 at 11:00 Levofloxacin (Levaquin) 250 mg DAILY@06 PO Last administered on 03/13/19 06:07; Admin Dose 250 MG; Start 03/09/19 at 06:00 Insulin Aspart (Novolog Insulin Pen) NOVOLOG *MILD* ALGORITHM WITH MEALS BEDTIME SC Last administered on 03/12/19 08:28; Admin Dose 2 UNIT; Start 03/09/19 at 17:35 Morphine Sulfate (morphine) 2 mg Q1H PRN IV SEVERE PAIN LEVEL 7-10 Last administered on 03/12/19 00:20; Admin Dose 2 MG; Start 03/10/19 at 08:00 Morphine Sulfate (morphine) 3 mg Q1H PRN IV SEVERE PAIN LEVEL 7-10; Start 03/10/19 at 08:00 Morphine Sulfate (morphine) 4 mg Q1H PRN IV SEVERE PAIN LEVEL 7-10; Start 03/10/19 at 08:00 Morphine Sulfate (morphine) 5 mg Q1H PRN IV SEVERE PAIN LEVEL 7-10; Start 03/10/19 at 08:00 Aspirin (Aspirin) 325 mg DAILY PO Last administered on 03/13/19at 09:37; Admin Dose 325 MG; Start 03/11/19 at 11:30 Dextrose/Sodium Chloride 1,000 ml @ 70 mls/hr [id number] IV Last administered on 03/13/19at 09:36; Admin Dose 70 MLS/HR; Start 03/13/19 at 09:00 VTE Prophylaxis Risk score (from Ns)>0 risk: 8 SCD applied (from Ns): Yes Lines/Catheters IV Catheter Type: Goodman in Place: No Assessment/Plan Hospital Course Subjective Patient feeling well Objective Physical exam General: Patient is laying in bed and answers questions appropriately Mentation: Patient is alert and oriented 4, Head: Normocephalic atraumatic Eyes: EOMI, pupils reactive to light Neck: Supple, nontender, midline Respiratory: No wheezing to auscultation bilaterally Cardiovascular: regular rate, no obvious murmurs Gastrointestinal: non-tender to palpation, bowel sounds heard. Neurological: Moves all extremities spontaneously Skin: Surgical site bandaged, CDI Assessment/Plan 1. Right great toe with gas gangrene s/p I&D 02/21 - Vascular surgery on board and appreciate consultation. Patient is s/p right popliteal to dorsalis pedis bypass 03/09. restarted aspirin per vascular surgeon, monitor hemoglobin closely - ID on board and will continue antibiotics at this time - Per podiatry will plan for amputation of R toe on today - pain control - Continue local wound care and dressing changes 2. Peripheral artery disease s/p R pop-Dp bypass - Vascular input appreciated 3. Acute blood loss anemia -Transfuse as needed, monitor closely 4. Poorly controlled diabetes mellitus - A1c noted - Stable - continue insulin and will adjust for better control 5. CAD s/p PCI - continue aspirin/statin/beta-blockers - Cardiology consultation appreciated. 6. HTN - stable - continue current medications 7. Hypothyroidism - Continue Synthroid - will need outpatient repeat thyroid studies in 4-6 weeks 8. Hyperlipidemia - continue statin 9. Disposition -Continue hemoglobin transfusion as needed, podiatry to plan surgery today BRADLEY LEONG Mar 13, 2019 14:11
[2019-03-13] MEDS ORDERED: POLYETHYLENE GLYCOL 17 GM PACKET PO PRN (14:30)
--- NOTE | 2019-03-13 14:31 | CONS ---
Assessment/Plan Assessment/Plan Hospital Course (Demo Recall) No events overnight patient is alert denies pain looks comfortable, no fevers overnight Indwelling: Right IJ triple-lumen catheter Antimicrobials: Levaquin, ampicillin Microbiology: Right foot wound culture grew REAL and enterococcus species Physical examination: Obese well-developed fragile elderly woman who is alert in no distress. Head atraumatic normocephalic sclera nonicteric neck is supple chest rise symmetrical breath sounds clear heart: S1-S2. Abdomen soft bowel sounds present. Extremities without cyanosis, right foot jonathan wrapped Assessment: 1. Right foot cellulitis with toe gangrene 2. Peripheral arterial disease status post abdominal aortogram with right popliteal artery angioplasty 02/23/19, s/p bypass graft 03/09/19 3. Diabetes 4. CHF Plan: Remains stable, continue antibiotics, plan for hallux amputation Consultation Date/Type/Reason Admit Date/Time February 20, 2019 at 23:53 Initial Consult Date Type of Consult id Date/Time of Note DATE: 03/13/19 TIME: 14:31 Exam/Review of Systems Exam Vitals Vital Signs Date Temp Pulse Resp B/P (MAP) Pulse Ox O2 O2 Flow FiO2 Time Delivery Rate 03/13/19 60 12:27 03/13/19 98.9 17 124/62 91 11:15 (82) 03/13/19 Nasal 2.0 08:31 Cannula 03/10/19 20:07 Intake and Output 03/12/19 03/12/19 03/13/19 1515:00 23:00 07:00 IntakeIntake Total 450 ml 1480 ml 350 ml OutputOutput Total 2300 ml 800 ml BalanceBalance 450 ml -820 ml -450 ml Results Result Diagram: 03/13/19 0603 03/13/19 0603 Results 24hrs Laboratory Tests Test 03/12/19 17:18 03/12/19 17:36 03/12/19 18:52 03/12/19 21:19 Bedside Glucose 57 L 78 137 154 Test 03/13/19 02:02 03/13/19 06:03 03/13/19 07:58 03/13/19 12:16 Bedside Glucose 123 92 138 White Blood Count 8.0 Red Blood Count 3.07 L Hemoglobin 8.9 L Hematocrit 27.3 L Mean Corpuscular 88.9 Volume Mean Corpuscular 29.0 Hemoglobin Mean Corpuscular 32.6 Hemoglobin Concent Red Cell 15.8 H Distribution Width Platelet Count 150 # Mean Platelet Volume 10.6 H Immature 0.600 H Granulocytes % Neutrophils % 69.8 Lymphocytes % 15.9 Monocytes % 10.9 Eosinophils % 2.6 Basophils % 0.2 Nucleated Red Blood 0.0 Cells % Immature 0.050 H Granulocytes # Neutrophils # 5.6 Lymphocytes # 1.3 Monocytes # 0.9 Eosinophils # 0.2 Basophils # 0.0 Nucleated Red Blood 0.0 Cells # Sodium Level 133 L Potassium Level 4.0 Chloride Level 102 Carbon Dioxide Level 28 Anion Gap 3 L Blood Urea Nitrogen 17 Creatinine 0.93 Glucose Level 98 # Calcium Level 7.8 L Phosphorus Level 3.2 Magnesium Level 2.2 Albumin 2.4 L Medications Medication Current Medications Ondansetron HCl (Zofran Inj) 4 mg Q6H PRN IV NAUSEA AND/OR VOMITING Last administered on 02/21/19 06:47; Admin Dose 4 MG; Start 02/21/19 at 01:30 Acetaminophen (Tylenol Liquid) 650 mg Q6H PRN PO PAIN LEVEL 1-3 OR FEVER Last administered on 03/06/19 12:16; Admin Dose 650 MG; Start 02/21/19 at 01:30 Acetaminophen/ Hydrocodone Bitart ([place] (5/325)) 1 tab Q6H PRN PO PAIN LEVEL 4-6 Last administered on 03/12/19at 14:19; Admin Dose 1 TAB; Start 02/21/19 at 01:30 Atorvastatin Calcium (Lipitor) 40 mg QHS PO Last administered on 03/12/19at 21:13; Admin Dose 40 MG; Start 02/21/19 at 21:00 Carvedilol (Coreg) 3.125 mg BID PO Last administered on 03/13/19 09:37; Admin Dose 3.125 MG; Start 02/21/19 at 09:00 Ferrous Sulfate (Ferrous Sulfate (Ec)) 325 mg QAM PO Last administered on 03/13/19at 09:37; Admin Dose 325 MG; Start 02/21/19 at 09:00 Miscellaneous Information 1 ea NOTE XX ; Start 02/21/19 at 06:00 Glucose (Glutose) 15 gm Q15M PRN PO DECREASED GLUCOSE; Start 02/21/19 at 06:00 Glucose (Glutose) 22.5 gm Q15M PRN PO DECREASED GLUCOSE; Start 02/21/19 at 06:00 Dextrose (D50w Syringe) 25 ml Q15M PRN IV DECREASED GLUCOSE; Start 02/21/19 at 06:00 Dextrose (D50w Syringe) 50 ml Q15M PRN IV DECREASED GLUCOSE; Start 02/21/19 at 06:00 Glucagon (Glucagen) 1 mg Q15M PRN IM DECREASED GLUCOSE; Start 02/21/19 at 06:00 Glucose (Glutose) 15 gm Q15M PRN BUCCAL DECREASED GLUCOSE; Start 02/21/19 at 06:00 Levothyroxine Sodium (Synthroid) 150 mcg BEFORE BREAKFAST PO Last administered on 03/13/19 06:07; Admin Dose 150 MCG; Start 02/25/19 at 07:00 Senna/Docusate Sodium (Senokot-S) 1 tab BID PRN PO constipation Last administered on 03/12/19at 09:01; Admin Dose 1 TAB; Start 02/25/19 at 10:00 Bisacodyl (Dulcolax Supp) 10 mg DAILY PRN MD CONSTIPATION; Start 02/25/19 at 10:00 Albuterol/ Ipratropium (Duoneb) 3 ml Q6HWA RESP THERAPY HHN Last administered on 03/11/19 20:33; Admin Dose 3 ML; Start 02/26/19 at 20:00 Albuterol/ Ipratropium (Duoneb) 3 ml Q2H RESP THERAPY PRN HHN shortness of breath Last administered on 02/26/19 16:13; Admin Dose 3 ML; Start 02/26/19 at 15:00 Budesonide (Pulmicort (Neb)) 0.5 mg BID RESP THERAPY HHN Last administered on 03/10/19 09:31; Admin Dose 0.5 MG; Start 02/26/19 at 20:00 Famotidine (Pepcid) 20 mg DAILY PO Last administered on 03/13/19 09:38; Admin Dose 20 MG; Start 02/27/19 at 09:00 Guaifenesin/ Codeine Phosphate (Robitussin Ac Liquid Cup) 5 ml Q4H PRN PO cough Last administered on 03/08/19 09:52; Admin Dose 5 ML; Start 03/01/19 at 10:30 Ampicillin 50 ml @ 100 mls/hr Q8 IVPB Last administered on 03/13/19 06:07; Admin Dose 100 MLS/HR; Start 03/02/19 at 22:00 Amlodipine Besylate (Norvasc) 10 mg DAILY PO Last administered on 03/13/19 09:37; Admin Dose 10 MG; Start 03/05/19 at 09:00 Diagnostic Test (Pha) (Accu-Chek) 1 ea 02 XX Last administered on 03/13/19at 02:19; Admin Dose 1 EA; Start 03/05/19 at 02:00 Losartan Potassium (Cozaar) 50 mg QPM PO Last administered on 03/12/19 21:17; Admin Dose 50 MG; Start 03/05/19 at 21:00 Insulin Aspart (Novolog Insulin Pen) 10 unit WITH MEALS SC Last administered on 03/12/19 11:51; Admin Dose 10 UNIT; Start 03/05/19 at 11:30 Insulin Glargine (Lantus) 30 units DAILY@2000 SC Last administered on 03/12/19 21:34; Admin Dose 30 UNITS; Start 03/05/19 at 20:00 Hydralazine HCl (Apresoline) 10 mg Q6H PRN IV SBP>160 Last administered on 03/09/19 12:40; Admin Dose 20 MG; Start 03/05/19 at 11:00 Levofloxacin (Levaquin) 250 mg DAILY@06 PO Last administered on 03/13/19 06:07; Admin Dose 250 MG; Start 03/09/19 at 06:00 Insulin Aspart (Novolog Insulin Pen) NOVOLOG *MILD* ALGORITHM WITH MEALS BEDTIME SC Last administered on 03/12/19 08:28; Admin Dose 2 UNIT; Start 03/09/19 at 17:35 Morphine Sulfate (morphine) 2 mg Q1H PRN IV SEVERE PAIN LEVEL 7-10 Last administered on 03/12/19 00:20; Admin Dose 2 MG; Start 03/10/19 at 08:00 Morphine Sulfate (morphine) 3 mg Q1H PRN IV SEVERE PAIN LEVEL 7-10; Start 03/10/19 at 08:00 Morphine Sulfate (morphine) 4 mg Q1H PRN IV SEVERE PAIN LEVEL 7-10; Start 03/10/19 at 08:00 Morphine Sulfate (morphine) 5 mg Q1H PRN IV SEVERE PAIN LEVEL 7-10; Start 03/10/19 at 08:00 Aspirin (Aspirin) 325 mg DAILY PO Last administered on 03/13/19at 09:37; Admin Dose 325 MG; Start 03/11/19 at 11:30 Dextrose/Sodium Chloride 1,000 ml @ 70 mls/hr [id number] IV Last administered on 03/13/19at 09:36; Admin Dose 70 MLS/HR; Start 03/13/19 at 09:00 Polyethylene Glycol (Miralax) 17 gm DAILY PRN PO CONSTIPATION; Start 03/13/19 at 14:30 TORI GARCIA NP Mar 13, 2019 14:31
--- NOTE | 2019-03-13 15:17 | PREAC ---
Date/Time of Note Date/Time of Note DATE: 03/13/19 TIME: 15:13 Anesthesia Eval and Record Evaluation Time Pre-Procedure Interview DATE: 03/13/19 TIME: 15:13 Age 74 Sex female NPO: 8 hrs Preoperative diagnosis R. Foot Cellulitis Planned procedure R. HalluxAmputationOf Toe Past Medical History Past Medical History: Includes Cardio: HTN, Dyslipidemia, [place], CAD, CHF Endo: Diabetes, Hypothyroid Surgery & Anesthesia Issues No known issue Meds Anticoagulation: No Beta Noris within 24 hr: Yes Active Scripts Ibuprofen* (Motrin*) 800 Mg Tab, 800 MG PO Q6H PRN for PAIN AND OR ELEVATED TEMP, #30 TAB Prov:SOPHIE PICHARDO MD 01/15/18 Reported Medications Insulin Lispro (Humalog) 100 Unit/1 Ml Cartridge, 4 UNIT SQ QAM, EA 02/21/19 Amlodipine Besylate* (Amlodipine Besylate*) 10 Mg Tablet, 10 MG PO DAILY, #30 TAB 02/21/19 Losartan Potassium* (Losartan Potassium*) 50 Mg Tablet, 50 MG PO QPM, TAB 02/21/19 Docusate Sodium* (Docusate Sodium*) 100 Mg Capsule, 100 MG PO DAILY, #30 CAP 02/21/19 Levothyroxine Sodium* (Levothyroxine Sodium*) 137 Mcg Tablet, 137 MCG PO BEFORE BREAKFAST, #30 TAB 02/21/19 Ferrous Sulfate* (Ferrous Sulfate*) 325 Mg Tabec, 325 MG PO QAM, TAB 02/21/19 Montelukast Sodium* (Montelukast Sodium*) 10 Mg Tablet, 10 MG PO QHS, #30 TAB 02/21/19 Cholecalciferol (Vitamin D3) (Vitamin D3) 2,000 Unit Tab.chew, 2000 UNIT PO QPM, TAB.CHEW 02/21/19 Carvedilol* (Carvedilol*) 3.125 Mg Tablet, 3.125 MG PO BID for 90 Days, #180 TK 1 TAB PO BID 02/21/19 Insulin Glargine* (Lantus*) 100 Unit/Ml Soln, 53 UNITS SQ QHS ADM 53 UNI SC HS 02/21/19 Atorvastatin* (Atorvastatin*) 40 Mg Tablet, 40 MG PO QHS for 90 Days, #90 TK 1 T PO QD 02/21/19 Current Medications Ondansetron HCl (Zofran Inj) 4 mg Q6H PRN IV NAUSEA AND/OR VOMITING Last administered on 02/21/19at 06:47; Admin Dose 4 MG; Start 02/21/19 at 01:30 Acetaminophen (Tylenol Liquid) 650 mg Q6H PRN PO PAIN LEVEL 1-3 OR FEVER Last administered on 03/06/19at 12:16; Admin Dose 650 MG; Start 02/21/19 at 01:30 Acetaminophen/ Hydrocodone Bitart ([place] (5/325)) 1 tab Q6H PRN PO PAIN LEVEL 4-6 Last administered on 03/12/19at 14:19; Admin Dose 1 TAB; Start 02/21/19 at 01:30 Atorvastatin Calcium (Lipitor) 40 mg QHS PO Last administered on 03/12/19at 21:13; Admin Dose 40 MG; Start 02/21/19 at 21:00 Carvedilol (Coreg) 3.125 mg BID PO Last administered on 03/13/19at 09:37; Admin Dose 3.125 MG; Start 02/21/19 at 09:00 Ferrous Sulfate (Ferrous Sulfate (Ec)) 325 mg QAM PO Last administered on 03/13/19at 09:37; Admin Dose 325 MG; Start 02/21/19 at 09:00 Miscellaneous Information 1 ea NOTE XX ; Start 02/21/19 at 06:00 Glucose (Glutose) 15 gm Q15M PRN PO DECREASED GLUCOSE; Start 02/21/19 at 06:00 Glucose (Glutose) 22.5 gm Q15M PRN PO DECREASED GLUCOSE; Start 02/21/19 at 06:00 Dextrose (D50w Syringe) 25 ml Q15M PRN IV DECREASED GLUCOSE; Start 02/21/19 at 06:00 Dextrose (D50w Syringe) 50 ml Q15M PRN IV DECREASED GLUCOSE; Start 02/21/19 at 06:00 Glucagon (Glucagen) 1 mg Q15M PRN IM DECREASED GLUCOSE; Start 02/21/19 at 06:00 Glucose (Glutose) 15 gm Q15M PRN BUCCAL DECREASED GLUCOSE; Start 02/21/19 at 06:00 Levothyroxine Sodium (Synthroid) 150 mcg BEFORE BREAKFAST PO Last administered on 03/13/19at 06:07; Admin Dose 150 MCG; Start 02/25/19 at 07:00 Senna/Docusate Sodium (Senokot-S) 1 tab BID PRN PO constipation Last administered on 03/12/19 09:01; Admin Dose 1 TAB; Start 02/25/19 at 10:00 Bisacodyl (Dulcolax Supp) 10 mg DAILY PRN ID CONSTIPATION; Start 02/25/19 at 10:00 Albuterol/ Ipratropium (Duoneb) 3 ml Q6HWA RESP THERAPY HHN Last administered on 03/11/19 20:33; Admin Dose 3 ML; Start 02/26/19 at 20:00 Albuterol/ Ipratropium (Duoneb) 3 ml Q2H RESP THERAPY PRN HHN shortness of breath Last administered on 02/26/19 16:13; Admin Dose 3 ML; Start 02/26/19 at 15:00 Budesonide (Pulmicort (Neb)) 0.5 mg BID RESP THERAPY HHN Last administered on 03/10/19 09:31; Admin Dose 0.5 MG; Start 02/26/19 at 20:00 Famotidine (Pepcid) 20 mg DAILY PO Last administered on 03/13/19 09:38; Admin Dose 20 MG; Start 02/27/19 at 09:00 Guaifenesin/ Codeine Phosphate (Robitussin Ac Liquid Cup) 5 ml Q4H PRN PO cough Last administered on 03/08/19 09:52; Admin Dose 5 ML; Start 03/01/19 at 10:30 Ampicillin 50 ml @ 100 mls/hr Q8 IVPB Last administered on 03/13/19 15:12; Admin Dose 100 MLS/HR; Start 03/02/19 at 22:00 Amlodipine Besylate (Norvasc) 10 mg DAILY PO Last administered on 03/13/19 09:37; Admin Dose 10 MG; Start 03/05/19 at 09:00 Diagnostic Test (Pha) (Accu-Chek) 1 ea 02 XX Last administered on 03/13/19 02:19; Admin Dose 1 EA; Start 03/05/19 at 02:00 Losartan Potassium (Cozaar) 50 mg QPM PO Last administered on 03/12/19 21:17; Admin Dose 50 MG; Start 03/05/19 at 21:00 Insulin Aspart (Novolog Insulin Pen) 10 unit WITH MEALS SC Last administered on 03/12/19 11:51; Admin Dose 10 UNIT; Start 03/05/19 at 11:30 Insulin Glargine (Lantus) 30 units DAILY@2000 SC Last administered on 03/12/19 21:34; Admin Dose 30 UNITS; Start 03/05/19 at 20:00 Hydralazine HCl (Apresoline) 10 mg Q6H PRN IV SBP>160 Last administered on 03/09/19at 12:40; Admin Dose 20 MG; Start 03/05/19 at 11:00 Levofloxacin (Levaquin) 250 mg DAILY@06 PO Last administered on 03/13/19 06:07; Admin Dose 250 MG; Start 03/09/19 at 06:00 Insulin Aspart (Novolog Insulin Pen) NOVOLOG *MILD* ALGORITHM WITH MEALS BEDTIME SC Last administered on 03/12/19 08:28; Admin Dose 2 UNIT; Start 03/09/19 at 17:35 Morphine Sulfate (morphine) 2 mg Q1H PRN IV SEVERE PAIN LEVEL 7-10 Last administered on 03/12/19at 00:20; Admin Dose 2 MG; Start 03/10/19 at 08:00 Morphine Sulfate (morphine) 3 mg Q1H PRN IV SEVERE PAIN LEVEL 7-10; Start 03/10/19 at 08:00 Morphine Sulfate (morphine) 4 mg Q1H PRN IV SEVERE PAIN LEVEL 7-10; Start 03/10/19 at 08:00 Morphine Sulfate (morphine) 5 mg Q1H PRN IV SEVERE PAIN LEVEL 7-10; Start 03/10/19 at 08:00 Aspirin (Aspirin) 325 mg DAILY PO Last administered on 03/13/19at 09:37; Admin Dose 325 MG; Start 03/11/19 at 11:30 Dextrose/Sodium Chloride 1,000 ml @ 70 mls/hr [id number] IV Last administered on 03/13/19 09:36; Admin Dose 70 MLS/HR; Start 03/13/19 at 09:00 Polyethylene Glycol (Miralax) 17 gm DAILY PRN PO CONSTIPATION; Start 03/13/19 at 14:30 Meds reviewed: Yes Allergies Coded Allergies: No Known Allergy (Unverified , 02/21/19) Allergies Reviewed: Yes Labs/Studies Labs Reviewed: Reviewed by anesthesiologist Result Diagram: 03/13/19 0603 03/13/19 0603 Laboratory Tests 03/13/19 06:03 test: N/A Pre-procedure Exam Last vitals Vital Signs Date Temp Pulse Resp B/P (MAP) Pulse Ox O2 O2 Flow FiO2 Time Delivery Rate 03/13/19 60 12:27 03/13/19 98.9 17 124/62 91 11:15 (82) 03/13/19 Nasal 2.0 08:31 Cannula 03/10/19 20:07 Airway: Adequate mouth opening Mallampati: Mallampati II Teeth: Normal Lung: Normal Heart: Normal ASA Physical Status ASA physical status: 3 Emergency: None Planned Anesthetic General/MAC: LMA Pre-operative Attestations Prior to commencing anesthesia and surgery, the patient was re-evaluated, there was verification of: *The patient's identity *The results of appropriate recent lab work and preoperative vital signs *The above evaluation not changing prior to induction *Anesthetic plan, risk benefits, alternative and complications discussed with patient/family; questions answered; patient/family understands, accepts and wishes to proceed. CARMELLA ZARATE MD Mar 13, 2019 15:17
[2019-03-13] MEDS ORDERED: FENTAnyl 50 MCG/ML VIAL ONE (15:23)
[2019-03-13] MEDS ORDERED: PROPOFOL 20 ML ONE (15:23)
[2019-03-13] MEDS ORDERED: ONDANSETRON 4 MG INJ IV PRN (15:30)
[2019-03-13] MEDS ORDERED: FENTAnyl 50 MCG/ML VIAL IV PRN (15:30)
[2019-03-13] MEDS ORDERED: LIDOCAINE 1% (MPF) 30 ML INJ ONE (16:01)
[2019-03-13] MEDS ORDERED: BUPIVACAINE 0.5% (SDV) 30 ML INJ ONE (16:01)
--- NOTE | 2019-03-13 16:04 | HPN ---
Date/Time of Note Date/Time of Note DATE: 03/13/19 TIME: 16:04 Interval H&P Admission Note Pt. seen H&P reviewed: No system changes NASRA ART DPM Mar 13, 2019 16:04
--- NOTE | 2019-03-13 17:11 | OPR ---
Date/Time of Note Date/Time of Note DATE: 03/13/19 TIME: 17:11 Operative Report Preoperative Diagnosis Right hallux gangrene Right hallux diabetic ulcer DM2 with peripheral neuropathy PAD Postoperative Diagnosis Right hallux gangrene Right hallux diabetic ulcer DM2 with peripheral neuropathy PAD Operation/Procedure Performed Right partial hallux amputation V-Y advancement flap Surgeon see signature line Patient Transport Officer Magdi Mendez DPM Anesthesia Type: MAC Estimated Blood Loss: 0 - 10 ml's Transfusion none Specimen right hallux pathology right hallux wound culture right hallux clean margin pathology Grafts/Implants none Complications none Indications 74 y/o diabetic F patient with right hallux gangrene s/p popliteal to DP bypass vascular graft is amenable to surgical intervention of the right hallux. Addressed all of the patient's questions and concerns. No promises or guarantees were given. Procedure Description Patient was brought into the OR and placed in the supine position. The right lower extremity was scrubbed, prepped, and draped in the usual aseptic manner. A formal time out was conducted. Attention was directed to the right foot hallux gangrene site. Local anesthesia was administered to the surgical site in a rojas block fashion. An incision was made at the site of the right hallux gangrene and using a sagittal saw on power a partial hallux amputation was performed and was sent for pathology studies. Wound cultures were also obtained of the ulceration site. After amputation there was adequate bleeding noted to the surgical site. A portion of the proximal phalanx was resected using a sagittal saw on power and was sent for clean margin pathology studies. Copious lavage and irrigation was used at the surgical site. Subsequently, the surgical site was measured at 2.5 x 2.4cm and the V-Y advancement flap was site was measured and marked. The flap was measured at 5 x 3cm and a V shaped skin incision was made at the plantar aspect just proximal to the surgical wound site. Using blunt dissection the skin incision was deepened and perforators to the skin flap were preserved. Once subfascial attachments to the flap the V shaped flap was advanced distally 2.5cm creating a V-Y flap which provided coverage of the surgical amputation site. 3-0 nylon sutures were used to secure the V-Y advancement flap and there was adequate perfusion noted to the flap site once secured in position. Xeroform and dry sterile dressings were applied to the right foot and patient was transferred to the PACU with vital signs stable and neurovascular status intact. NASRA ART DPM Mar 13, 2019 17:11
--- NOTE | 2019-03-13 17:12 | SIPON ---
Date/Time of Note Date/Time of Note DATE: 03/13/19 TIME: 17:12 Operative Report Preoperative Diagnosis Right hallux gangrene Right hallux diabetic ulcer DM2 with peripheral neuropathy PAD Postoperative Diagnosis Right hallux gangrene Right hallux diabetic ulcer DM2 with peripheral neuropathy PAD Operation/Procedure Performed Right hallux amputation V-Y advancement flap Surgeon see signature line preschool assistant principal Magdi Mendez DPM Anesthesia: MAC Estimated blood loss: 0 - 10 ml's Transfusion Required none Specimen right hallux pathology right hallux wound culture right hallux clean margin pathology Grafts/Implants none Complications none NASRA ART DPM Mar 13, 2019 17:12
--- NOTE | 2019-03-13 17:18 | PAC ---
Date/Time of Note Date/Time of Note DATE: 03/13/19 TIME: 17:17 Post-Anesthesia Notes Post-Anesthesia Note Last documented vital signs Vital Signs Date Temp Pulse Resp B/P (MAP) Pulse Ox O2 O2 Flow FiO2 Time Delivery Rate 03/13/19 2.0 17:01 03/13/19 Nasal 13:45 Cannula 03/13/19 60 12:27 03/13/19 98.9 17 124/62 91 11:15 (82) 03/10/19 20:07 Activity: WNL Respiratory function: WNL Cardiovascular function: WNL Mental status: Baseline Pain reasonably controlled: Yes Hydration appropriate: Yes Nausea/Vomiting absent: Yes CARMELLA ZARATE MD Mar 13, 2019 17:18
[2019-03-13] MEDS: morphine 2 MG INJ IV PRN (18:07)
[2019-03-13] MEDS: INSULIN GLARGINE [LANTus] (100 UNITS/ML) SYG SC SCH (20:55)
[2019-03-13] MEDS: LOSARTAN 50 MG TAB PO SCH (21:05)
[2019-03-13] MEDS: ATORVASTATIN 40 MG TAB PO SCH (21:05)
[2019-03-13] MEDS: HYDROCODONE/APAP (5/325) TAB PO PRN (21:11)
[2019-03-14] VITALS (12 sets, daily range): BP systolic 111–147; BP diastolic 56–70; PULSE 58–74; RESP 16–19
[2019-03-14] MEDS: morphine 2 MG INJ IV PRN ×5 (00:50→12:42)
[2019-03-14] MEDS: ACCU-CHEK XX SCH (01:52)
[2019-03-14] MEDS: LEVOFLOXACIN 250 MG TAB PO SCH (06:05)
[2019-03-14] MEDS: AMPICILLIN 1 GM/NS (PMX) 50 ML IVPB SCH ×3 (06:05→21:24)
[2019-03-14] MEDS: LEVOTHYROXINE 150 MCG TAB PO SCH (06:05)
[2019-03-14] MEDS: INSULIN ASPART [NOVOLOG] 3 ML PEN SC SCH ×7 (07:55→21:00)
[2019-03-14] MEDS: FAMOTIDINE 20 MG TAB PO SCH (08:34)
[2019-03-14] MEDS: FERROUS SULFATE (EC) 325 MG TAB PO SCH (08:34)
[2019-03-14] MEDS: ASPIRIN 325 MG TAB PO SCH (08:38)
[2019-03-14] MEDS: ACETAMINOPHEN 650MG/20.3ML CUP PO PRN (08:42)
[2019-03-14] MEDS: ALBUTEROL/IPRATROPIUM (NEB) 3 ML AMP HHN SCH ×3 (08:55→19:30)
[2019-03-14] MEDS: BUDESONIDE (NEB) 0.5MG/2ML AMP HHN SCH ×2 (08:55→19:30)
--- NOTE | 2019-03-14 09:29 | CONS ---
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 If strikethrough noted reinforce outer dressings. Leave bypass dressings intact. Partial weight bearing in a surgical shoe. Intra-op path/cultures pending. Abx per ID recommendations. Appreciate input from vascular surgery. Patient stable from podiatry stand point and to follow up in outpatient [facility] wound clinic. Consultation Date/Type/Reason Admit Date/Time February 20, 2019 at 23:53 Initial Consult Date Date/Time of Note DATE: 03/14/19 TIME: 09:27 24 HR Interval Summary Free Text/Dictation No acute events overnight. Exam/Review of Systems Exam Vitals Vital Signs Date Temp Pulse Resp B/P (MAP) Pulse Ox O2 O2 Flow FiO2 Time Delivery Rate 03/14/19 28 2.0 28 08:55 03/14/19 90 20 Nasal 08:55 Cannula 03/14/19 100.1 08:42 03/14/19 147/70 07:06 (95) Intake and Output 03/13/19 03/13/19 03/14/19 1515:00 23:00 07:00 IntakeIntake Total 340 ml OutputOutput Total 300 ml BalanceBalance 40 ml Exam Skin edges well approximated No sign of gangrene or purulent drainage, no proximal streaking Absent protective sensations Partial hallux amputation site appreciated Pain on palpation to surgical site. Serous blisters appreciated to the medial ankle region Results Result Diagram: 03/14/19 0603 03/14/19 0603 Results 24hrs Laboratory Tests Test 03/13/19 12:16 03/13/19 15:21 03/13/19 18:05 03/13/19 20:53 Bedside Glucose 138 131 95 136 Test 03/14/19 01:46 03/14/19 06:03 03/14/19 07:17 03/14/19 07:59 Bedside Glucose 121 86 White Blood Count 8.8 Red Blood Count 3.22 L Hemoglobin 9.4 L Hematocrit 29.0 L Mean Corpuscular 90.1 Volume Mean Corpuscular 29.2 Hemoglobin Mean Corpuscular 32.4 Hemoglobin Concen t Red Cell 15.3 H Distribution Width Platelet Count 189 # Mean Platelet 9.9 Volume Immature 0.700 H Granulocytes % Neutrophils % 71.6 Lymphocytes % 13.9 L Monocytes % 11.7 H Eosinophils % 1.9 Basophils % 0.2 Nucleated Red 0.0 Blood Cells % Immature 0.060 H Granulocytes # Neutrophils # 6.3 Lymphocytes # 1.2 Monocytes # 1.0 H Eosinophils # 0.2 Basophils # 0.0 Nucleated Red 0.0 Blood Cells # Sodium Level 136 Potassium Level 4.3 Chloride Level 102 Carbon Dioxide 28 Level Anion Gap 6 Blood Urea 16 Nitrogen Creatinine 0.87 Est Glomerular Filtrat Rate mL/min Glucose Level 82 Calcium Level 8.2 L Phosphorus Level 3.8 Magnesium Level 2.2 Lab Scanned BLOOD TRANSFUSIO Report N Medications Medication Current Medications Ondansetron HCl (Zofran Inj) 4 mg Q6H PRN IV NAUSEA AND/OR VOMITING Last administered on 02/21/19 06:47; Admin Dose 4 MG; Start 02/21/19 at 01:30 Acetaminophen (Tylenol Liquid) 650 mg Q6H PRN PO PAIN LEVEL 1-3 OR FEVER Last administered on 03/14/19 08:42; Admin Dose 650 MG; Start 02/21/19 at 01:30 Acetaminophen/ Hydrocodone Bitart ([place] (5/325)) 1 tab Q6H PRN PO PAIN LEVEL 4-6 Last administered on 03/13/19 21:11; Admin Dose 1 TAB; Start 02/21/19 at 01:30 Atorvastatin Calcium (Lipitor) 40 mg QHS PO Last administered on 03/13/19 21:05; Admin Dose 40 MG; Start 02/21/19 at 21:00 Carvedilol (Coreg) 3.125 mg BID PO Last administered on 03/14/19 08:34; Admin Dose 3.125 MG; Start 02/21/19 at 09:00 Ferrous Sulfate (Ferrous Sulfate (Ec)) 325 mg QAM PO Last administered on 03/14/19 08:34; Admin Dose 325 MG; Start 02/21/19 at 09:00 Miscellaneous Information 1 ea NOTE XX ; Start 02/21/19 at 06:00 Glucose (Glutose) 15 gm Q15M PRN PO DECREASED GLUCOSE; Start 02/21/19 at 06:00 Glucose (Glutose) 22.5 gm Q15M PRN PO DECREASED GLUCOSE; Start 02/21/19 at 06:00 Dextrose (D50w Syringe) 25 ml Q15M PRN IV DECREASED GLUCOSE; Start 02/21/19 at 06:00 Dextrose (D50w Syringe) 50 ml Q15M PRN IV DECREASED GLUCOSE; Start 02/21/19 at 06:00 Glucagon (Glucagen) 1 mg Q15M PRN IM DECREASED GLUCOSE; Start 02/21/19 at 06:00 Glucose (Glutose) 15 gm Q15M PRN BUCCAL DECREASED GLUCOSE; Start 02/21/19 at 06:00 Levothyroxine Sodium (Synthroid) 150 mcg BEFORE BREAKFAST PO Last administered on 03/14/19 06:05; Admin Dose 150 MCG; Start 02/25/19 at 07:00 Senna/Docusate Sodium (Senokot-S) 1 tab BID PRN PO constipation Last administered on 03/12/19 09:01; Admin Dose 1 TAB; Start 02/25/19 at 10:00 Bisacodyl (Dulcolax Supp) 10 mg DAILY PRN [place] CONSTIPATION; Start 02/25/19 at 10:00 Albuterol/ Ipratropium (Duoneb) 3 ml Q6HWA RESP THERAPY HHN Last administered on 03/14/19 08:55; Admin Dose 3 ML; Start 02/26/19 at 20:00 Albuterol/ Ipratropium (Duoneb) 3 ml Q2H RESP THERAPY PRN HHN shortness of breath Last administered on 02/26/19at 16:13; Admin Dose 3 ML; Start 02/26/19 at 15:00 Budesonide (Pulmicort (Neb)) 0.5 mg BID RESP THERAPY HHN Last administered on 03/14/19 08:55; Admin Dose 0.5 MG; Start 02/26/19 at 20:00 Famotidine (Pepcid) 20 mg DAILY PO Last administered on 03/14/19 08:34; Admin Dose 20 MG; Start 02/27/19 at 09:00 Guaifenesin/ Codeine Phosphate (Robitussin Ac Liquid Cup) 5 ml Q4H PRN PO cough Last administered on 03/08/19 09:52; Admin Dose 5 ML; Start 03/01/19 at 10:30 Ampicillin 50 ml @ 100 mls/hr Q8 IVPB Last administered on 03/14/19 06:05; Admin Dose 100 MLS/HR; Start 03/02/19 at 22:00 Amlodipine Besylate (Norvasc) 10 mg DAILY PO Last administered on 03/13/19 09:37; Admin Dose 10 MG; Start 03/05/19 at 09:00 Diagnostic Test (Pha) (Accu-Chek) 1 ea 02 XX Last administered on 03/14/19 01:52; Admin Dose 1 EA; Start 03/05/19 at 02:00 Losartan Potassium (Cozaar) 50 mg QPM PO Last administered on 03/13/19 21:05; Admin Dose 50 MG; Start 03/05/19 at 21:00 Insulin Aspart (Novolog Insulin Pen) 10 unit WITH MEALS SC Last administered on 03/12/19 11:51; Admin Dose 10 UNIT; Start 03/05/19 at 11:30 Insulin Glargine (Lantus) 30 units DAILY@2000 SC Last administered on 03/13/19 20:55; Admin Dose 30 UNITS; Start 03/05/19 at 20:00 Hydralazine HCl (Apresoline) 10 mg Q6H PRN IV SBP>160 Last administered on 03/09/19 12:40; Admin Dose 20 MG; Start 03/05/19 at 11:00 Levofloxacin (Levaquin) 250 mg DAILY@06 PO Last administered on 03/14/19 06:05; Admin Dose 250 MG; Start 03/09/19 at 06:00 Insulin Aspart (Novolog Insulin Pen) NOVOLOG *MILD* ALGORITHM WITH MEALS BEDTIME SC Last administered on 03/12/19 08:28; Admin Dose 2 UNIT; Start 03/09/19 at 17:35 Morphine Sulfate (morphine) 2 mg Q1H PRN IV SEVERE PAIN LEVEL 7-10 Last administered on 03/14/19 09:08; Admin Dose 2 MG; Start 03/10/19 at 08:00 Morphine Sulfate (morphine) 3 mg Q1H PRN IV SEVERE PAIN LEVEL 7-10; Start 03/10/19 at 08:00 Morphine Sulfate (morphine) 4 mg Q1H PRN IV SEVERE PAIN LEVEL 7-10; Start 03/10/19 at 08:00 Morphine Sulfate (morphine) 5 mg Q1H PRN IV SEVERE PAIN LEVEL 7-10; Start 03/10/19 at 08:00 Aspirin (Aspirin) 325 mg DAILY PO Last administered on 03/14/19at 08:38; Admin Dose 325 MG; Start 03/11/19 at 11:30 Polyethylene Glycol (Miralax) 17 gm DAILY PRN PO CONSTIPATION; Start 03/13/19 at 14:30 NASRA ART DPM Mar 14, 2019 09:29
[2019-03-14] MEDS: AMLODIPINE 10 MG TAB PO SCH (09:53)
--- NOTE | 2019-03-14 13:21 | PN ---
Date/Time of Note Date/Time of Note DATE: 03/14/19 TIME: 13:16 Objective Vitals Vital Signs Date Temp Pulse Resp B/P (MAP) Pulse Ox O2 O2 Flow FiO2 Time Delivery Rate 03/14/19 98.3 62 16 115/67 93 11:19 (83) 03/14/19 2.0 28 08:55 03/14/19 Nasal 08:55 Cannula Intake and Output 03/13/19 03/13/19 03/14/19 1515:00 23:00 07:00 IntakeIntake Total 340 ml OutputOutput Total 300 ml BalanceBalance 40 ml Results Result Diagram: 03/14/19 0603 03/14/19 0603 Medications Medications Current Medications Ondansetron HCl (Zofran Inj) 4 mg Q6H PRN IV NAUSEA AND/OR VOMITING Last administered on 02/21/19at 06:47; Admin Dose 4 MG; Start 02/21/19 at 01:30 Acetaminophen (Tylenol Liquid) 650 mg Q6H PRN PO PAIN LEVEL 1-3 OR FEVER Last administered on 03/14/19at 08:42; Admin Dose 650 MG; Start 02/21/19 at 01:30 Acetaminophen/ Hydrocodone Bitart ([place] (5/325)) 1 tab Q6H PRN PO PAIN LEVEL 4-6 Last administered on 03/13/19at 21:11; Admin Dose 1 TAB; Start 02/21/19 at 01:30 Atorvastatin Calcium (Lipitor) 40 mg QHS PO Last administered on 03/13/19at 21:05; Admin Dose 40 MG; Start 02/21/19 at 21:00 Carvedilol (Coreg) 3.125 mg BID PO Last administered on 03/14/19 08:34; Admin Dose 3.125 MG; Start 02/21/19 at 09:00 Ferrous Sulfate (Ferrous Sulfate (Ec)) 325 mg QAM PO Last administered on 03/14/19 08:34; Admin Dose 325 MG; Start 02/21/19 at 09:00 Miscellaneous Information 1 ea NOTE XX ; Start 02/21/19 at 06:00 Glucose (Glutose) 15 gm Q15M PRN PO DECREASED GLUCOSE; Start 02/21/19 at 06:00 Glucose (Glutose) 22.5 gm Q15M PRN PO DECREASED GLUCOSE; Start 02/21/19 at 06:00 Dextrose (D50w Syringe) 25 ml Q15M PRN IV DECREASED GLUCOSE; Start 02/21/19 at 06:00 Dextrose (D50w Syringe) 50 ml Q15M PRN IV DECREASED GLUCOSE; Start 02/21/19 at 06:00 Glucagon (Glucagen) 1 mg Q15M PRN IM DECREASED GLUCOSE; Start 02/21/19 at 06:00 Glucose (Glutose) 15 gm Q15M PRN BUCCAL DECREASED GLUCOSE; Start 02/21/19 at 06:00 Levothyroxine Sodium (Synthroid) 150 mcg BEFORE BREAKFAST PO Last administered on 03/14/19 06:05; Admin Dose 150 MCG; Start 02/25/19 at 07:00 Senna/Docusate Sodium (Senokot-S) 1 tab BID PRN PO constipation Last administered on 03/12/19 09:01; Admin Dose 1 TAB; Start 02/25/19 at 10:00 Bisacodyl (Dulcolax Supp) 10 mg DAILY PRN [place] CONSTIPATION; Start 02/25/19 at 10:00 Albuterol/ Ipratropium (Duoneb) 3 ml Q6HWA RESP THERAPY HHN Last administered on 03/14/19 08:55; Admin Dose 3 ML; Start 02/26/19 at 20:00 Albuterol/ Ipratropium (Duoneb) 3 ml Q2H RESP THERAPY PRN HHN shortness of breath Last administered on 02/26/19 16:13; Admin Dose 3 ML; Start 02/26/19 at 15:00 Budesonide (Pulmicort (Neb)) 0.5 mg BID RESP THERAPY HHN Last administered on 03/14/19 08:55; Admin Dose 0.5 MG; Start 02/26/19 at 20:00 Famotidine (Pepcid) 20 mg DAILY PO Last administered on 03/14/19 08:34; Admin Dose 20 MG; Start 02/27/19 at 09:00 Guaifenesin/ Codeine Phosphate (Robitussin Ac Liquid Cup) 5 ml Q4H PRN PO cough Last administered on 03/08/19 09:52; Admin Dose 5 ML; Start 03/01/19 at 10:30 Ampicillin 50 ml @ 100 mls/hr Q8 IVPB Last administered on 03/14/19 06:05; Admin Dose 100 MLS/HR; Start 03/02/19 at 22:00 Diagnostic Test (Pha) (Accu-Chek) 1 ea 02 XX Last administered on 03/14/19 01:52; Admin Dose 1 EA; Start 03/05/19 at 02:00 Losartan Potassium (Cozaar) 50 mg QPM PO Last administered on 03/13/19 21:05; Admin Dose 50 MG; Start 03/05/19 at 21:00 Insulin Aspart (Novolog Insulin Pen) 10 unit WITH MEALS SC Last administered on 03/12/19 11:51; Admin Dose 10 UNIT; Start 03/05/19 at 11:30 Insulin Glargine (Lantus) 30 units DAILY@2000 SC Last administered on 03/13/19 20:55; Admin Dose 30 UNITS; Start 03/05/19 at 20:00 Hydralazine HCl (Apresoline) 10 mg Q6H PRN IV SBP>160 Last administered on 03/09/19 12:40; Admin Dose 20 MG; Start 03/05/19 at 11:00 Levofloxacin (Levaquin) 250 mg DAILY@06 PO Last administered on 03/14/19 06:05; Admin Dose 250 MG; Start 03/09/19 at 06:00 Insulin Aspart (Novolog Insulin Pen) NOVOLOG *MILD* ALGORITHM WITH MEALS BEDTIME SC Last administered on 03/12/19 08:28; Admin Dose 2 UNIT; Start 03/09/19 at 17:35 Morphine Sulfate (morphine) 2 mg Q1H PRN IV SEVERE PAIN LEVEL 7-10 Last administered on 03/14/19 12:42; Admin Dose 2 MG; Start 03/10/19 at 08:00 Morphine Sulfate (morphine) 3 mg Q1H PRN IV SEVERE PAIN LEVEL 7-10; Start 03/10 at 08:00 Morphine Sulfate (morphine) 4 mg Q1H PRN IV SEVERE PAIN LEVEL 7-10; Start 03/10/19 at 08:00 Morphine Sulfate (morphine) 5 mg Q1H PRN IV SEVERE PAIN LEVEL 7-10; Start 03/10/19 at 08:00 Aspirin (Aspirin) 325 mg DAILY PO Last administered on 03/14/19 08:38; Admin Dose 325 MG; Start 03/11/19 at 11:30 Polyethylene Glycol (Miralax) 17 gm DAILY PRN PO CONSTIPATION; Start 03/13/19 at 14:30 Amlodipine Besylate (Norvasc) 10 mg DAILY PO Last administered on 03/14/19at 09:53; Admin Dose 10 MG; Start 03/14/19 at 09:30 VTE Prophylaxis Risk [place]from [facility] [place] risk: 7 SCD applied (from [facility] [place] No SCD contraindication: other Lines/Catheters IV Catheter Type: Goodman in Place: No Assessment/Plan Hospital Course Subjective Patient feeling well, doing well after surgery Objective Physical exam General: Patient is laying in bed and answers questions appropriately Mentation: Patient is alert and oriented 4, Head: Normocephalic atraumatic Eyes: EOMI, pupils reactive to light Neck: Supple, nontender, midline Respiratory: No wheezing to auscultation bilaterally Cardiovascular: regular rate, no obvious murmurs Gastrointestinal: non-tender to palpation, bowel sounds heard. Neurological: Moves all extremities spontaneously Skin: Surgical site bandaged, CDI Assessment/Plan 1. Right great toe with gas gangrene s/p I&D 02/21, status post partial hallux amputation done on March 13, 2019 - Vascular surgery on board and appreciate consultation. Patient is s/p right popliteal to dorsalis pedis bypass 03/09 and partial hallux amputation done 03/13/19. restarted aspirin per vascular surgeon when appropriate, monitor hemoglobin closely - ID on board and will continue antibiotics at this time - pain control - Continue local wound care and dressing changes 2. Peripheral artery disease s/p R pop-Dp bypass - Vascular input appreciated 3. Acute blood loss anemia -Transfuse as needed, monitor closely 4. Poorly controlled diabetes mellitus - A1c noted - Stable - continue insulin and will adjust for better control 5. CAD s/p PCI - continue aspirin/statin/beta-blockers - Cardiology consultation appreciated. 6. HTN - stable - continue current medications 7. Hypothyroidism - Continue Synthroid - will need outpatient repeat thyroid studies in 4-6 weeks 8. Hyperlipidemia - continue statin 9. Disposition -pod recs/vascular recs appreciated, pod #1 BRADLEY LEONG Mar 14, 2019 13:21
--- NOTE | 2019-03-14 14:12 | CONS ---
Assessment/Plan Assessment/Plan Hospital Course (Demo Recall) No events overnight patient is alert, feels good Indwelling: Right IJ triple-lumen catheter Antimicrobials: Levaquin, ampicillin Microbiology: Right foot wound culture grew REAL and enterococcus species Physical examination: Obese well-developed fragile elderly woman who is alert in no distress. Head atraumatic normocephalic sclera nonicteric neck is supple chest rise symmetrical breath sounds clear heart: S1-S2. Abdomen soft bowel sounds present. Extremities: Right lower extremity dressing intact Assessment: 1. Right foot cellulitis with toe gangrene, s/p right partial hallux amputation 03/13/19 2. Peripheral arterial disease status post abdominal aortogram with right popliteal artery angioplasty 02/23/19, s/p bypass graft 03/09/19 3. Diabetes 4. CHF Plan: Remains stable, will await for intraoperative cultures, per discussion with podiatry infected part of the bone was removed so most likely patient will be on oral antibiotics Consultation Date/Type/Reason Admit Date/Time February 20, 2019 at 23:53 Initial Consult Date Type of Consult id Date/Time of Note DATE: 03/14/19 TIME: 14:11 Exam/Review of Systems Exam Vitals Vital Signs Date Temp Pulse Resp B/P (MAP) Pulse Ox O2 O2 Flow FiO2 Time Delivery Rate 03/14/19 98.3 62 16 115/67 93 11:19 (83) 03/14/19 2.0 28 08:55 03/14/19 Nasal 08:55 Cannula Intake and Output 03/13/19 03/13/19 03/14/19 1515:00 23:00 07:00 IntakeIntake Total 340 ml OutputOutput Total 300 ml BalanceBalance 40 ml Results Result Diagram: 03/14/19 0603 03/14/19 0603 Results 24hrs Laboratory Tests Test 03/13/19 15:21 03/13/19 18:05 03/13/19 20:53 03/14/19 01:46 Bedside Glucose 131 95 136 121 Test 03/14/19 06:03 03/14/19 07:17 03/14/19 07:59 03/14/19 11:59 White Blood Count 8.8 Red Blood Count 3.22 L Hemoglobin 9.4 L Hematocrit 29.0 L Mean Corpuscular 90.1 Volume Mean Corpuscular 29.2 Hemoglobin Mean Corpuscular 32.4 Hemoglobin Concen t Red Cell 15.3 H Distribution Width Platelet Count 189 # Mean Platelet 9.9 Volume Immature 0.700 H Granulocytes % Neutrophils % 71.6 Lymphocytes % 13.9 L Monocytes % 11.7 H Eosinophils % 1.9 Basophils % 0.2 Nucleated Red 0.0 Blood Cells % Immature 0.060 H Granulocytes # Neutrophils # 6.3 Lymphocytes # 1.2 Monocytes # 1.0 H Eosinophils # 0.2 Basophils # 0.0 Nucleated Red 0.0 Blood Cells # Sodium Level 136 Potassium Level 4.3 Chloride Level 102 Carbon Dioxide 28 Level Anion Gap 6 Blood Urea 16 Nitrogen Creatinine 0.87 Est Glomerular Filtrat Rate mL/min Glucose Level 82 Calcium Level 8.2 L Phosphorus Level 3.8 Magnesium Level 2.2 Lab Scanned BLOOD TRANSFUSIO Report N Bedside Glucose 86 138 Medications Medication Current Medications Ondansetron HCl (Zofran Inj) 4 mg Q6H PRN IV NAUSEA AND/OR VOMITING Last administered on 02/21/19 06:47; Admin Dose 4 MG; Start 02/21/19 at 01:30 Acetaminophen (Tylenol Liquid) 650 mg Q6H PRN PO PAIN LEVEL 1-3 OR FEVER Last administered on 03/14/19 08:42; Admin Dose 650 MG; Start 02/21/19 at 01:30 Acetaminophen/ Hydrocodone Bitart ([place] (5/325)) 1 tab Q6H PRN PO PAIN LEVEL 4-6 Last administered on 03/13/19 21:11; Admin Dose 1 TAB; Start 02/21/19 at 01:30 Atorvastatin Calcium (Lipitor) 40 mg QHS PO Last administered on 03/13/19 21:05; Admin Dose 40 MG; Start 02/21/19 at 21:00 Carvedilol (Coreg) 3.125 mg BID PO Last administered on 03/14/19 08:34; Admin Dose 3.125 MG; Start 02/21/19 at 09:00 Ferrous Sulfate (Ferrous Sulfate (Ec)) 325 mg QAM PO Last administered on 03/14/19 08:34; Admin Dose 325 MG; Start 02/21/19 at 09:00 Miscellaneous Information 1 ea NOTE XX ; Start 02/21/19 at 06:00 Glucose (Glutose) 15 gm Q15M PRN PO DECREASED GLUCOSE; Start 02/21/19 at 06:00 Glucose (Glutose) 22.5 gm Q15M PRN PO DECREASED GLUCOSE; Start 02/21/19 at 06:00 Dextrose (D50w Syringe) 25 ml Q15M PRN IV DECREASED GLUCOSE; Start 02/21/19 at 06:00 Dextrose (D50w Syringe) 50 ml Q15M PRN IV DECREASED GLUCOSE; Start 02/21/19 at 06:00 Glucagon (Glucagen) 1 mg Q15M PRN IM DECREASED GLUCOSE; Start 02/21/19 at 06:00 Glucose (Glutose) 15 gm Q15M PRN BUCCAL DECREASED GLUCOSE; Start 02/21/19 at 06:00 Levothyroxine Sodium (Synthroid) 150 mcg BEFORE BREAKFAST PO Last administered on 03/14/19 06:05; Admin Dose 150 MCG; Start 02/25/19 at 07:00 Senna/Docusate Sodium (Senokot-S) 1 tab BID PRN PO constipation Last administered on 03/12/19 09:01; Admin Dose 1 TAB; Start 02/25/19 at 10:00 Bisacodyl (Dulcolax Supp) 10 mg DAILY PRN [place] CONSTIPATION; Start 02/25/19 at 10:00 Albuterol/ Ipratropium (Duoneb) 3 ml Q6HWA RESP THERAPY HHN Last administered on 03/14/19 08:55; Admin Dose 3 ML; Start 02/26/19 at 20:00 Albuterol/ Ipratropium (Duoneb) 3 ml Q2H RESP THERAPY PRN HHN shortness of breath Last administered on 02/26/19 16:13; Admin Dose 3 ML; Start 02/26/19 at 15:00 Budesonide (Pulmicort (Neb)) 0.5 mg BID RESP THERAPY HHN Last administered on 03/14/19 08:55; Admin Dose 0.5 MG; Start 02/26/19 at 20:00 Famotidine (Pepcid) 20 mg DAILY PO Last administered on 03/14/19 08:34; Admin Dose 20 MG; Start 02/27/19 at 09:00 Guaifenesin/ Codeine Phosphate (Robitussin Ac Liquid Cup) 5 ml Q4H PRN PO cough Last administered on 6/13/19at 09:52; Admin Dose 5 ML; Start 03/01/19 at 10:30 Ampicillin 50 ml @ 100 mls/hr Q8 IVPB Last administered on 03/14/19 06:05; Admin Dose 100 MLS/HR; Start 03/02/19 at 22:00 Diagnostic Test (Pha) (Accu-Chek) 1 ea 02 XX Last administered on 03/14/19at 01:52; Admin Dose 1 EA; Start 03/05/19 at 02:00 Losartan Potassium (Cozaar) 50 mg QPM PO Last administered on 03/13/19at 21:05; Admin Dose 50 MG; Start 03/05/19 at 21:00 Insulin Aspart (Novolog Insulin Pen) 10 unit WITH MEALS SC Last administered on 03/12/19 11:51; Admin Dose 10 UNIT; Start 03/05/19 at 11:30 Insulin Glargine (Lantus) 30 units DAILY@2000 SC Last administered on 03/13/19at 20:55; Admin Dose 30 UNITS; Start 03/05/19 at 20:00 Hydralazine HCl (Apresoline) 10 mg Q6H PRN IV SBP>160 Last administered on 03/09/19at 12:40; Admin Dose 20 MG; Start 03/05/19 at 11:00 Levofloxacin (Levaquin) 250 mg DAILY@06 PO Last administered on 03/14/19 06:05; Admin Dose 250 MG; Start 03/09/19 at 06:00 Insulin Aspart (Novolog Insulin Pen) NOVOLOG *MILD* ALGORITHM WITH MEALS BEDTIME SC Last administered on 03/12/19 08:28; Admin Dose 2 UNIT; Start 03/09/19 at 17:35 Morphine Sulfate (morphine) 2 mg Q1H PRN IV SEVERE PAIN LEVEL 7-10 Last administered on 03/14/19at 12:42; Admin Dose 2 MG; Start 03/10/19 at 08:00 Morphine Sulfate (morphine) 3 mg Q1H PRN IV SEVERE PAIN LEVEL 7-10; Start 03/10/19 at 08:00 Morphine Sulfate (morphine) 4 mg Q1H PRN IV SEVERE PAIN LEVEL 7-10; Start 03/10/19 at 08:00 Morphine Sulfate (morphine) 5 mg Q1H PRN IV SEVERE PAIN LEVEL 7-10; Start 03/10/19 at 08:00 Aspirin (Aspirin) 325 mg DAILY PO Last administered on 03/14/19at 08:38; Admin Dose 325 MG; Start 03/11/19 at 11:30 Polyethylene Glycol (Miralax) 17 gm DAILY PRN PO CONSTIPATION; Start 03/13/19 at 14:30 Amlodipine Besylate (Norvasc) 10 mg DAILY PO Last administered on 03/14/19at 09:53; Admin Dose 10 MG; Start 03/14/19 at 09:30 TORI GARCIA NP Mar 14, 2019 14:12
--- NOTE | 2019-03-14 15:07 | QN ---
Documentation Comment No c/o. Comfortable. R 1st toe was amputated yesterday. AFVSS R leg incisions CDI, 2+ graft pulse, toes are warm and pink, 2 water blisters distal calf from compression wraps that were applied when she was oozing from the incisions. They are intact. - doing well s/p R pop-DP bypass - OK for SNF tx or home with wound care - the venu need to come out in 10 days - f/u with me in the [facility] next week after d/c ALVIN ENG MD Mar 14, 2019 15:07
[2019-03-14] MEDS: LOSARTAN 50 MG TAB PO SCH (21:17)
[2019-03-14] MEDS: ATORVASTATIN 40 MG TAB PO SCH (21:17)
[2019-03-14] MEDS: INSULIN GLARGINE [LANTus] (100 UNITS/ML) SYG SC SCH (22:14)
[2019-03-15] VITALS (12 sets, daily range): BP systolic 126–153; BP diastolic 58–72; PULSE 60–80; RESP 16–22
[2019-03-15] MEDS: ACETAMINOPHEN 650MG/20.3ML CUP PO PRN (00:16)
[2019-03-15] MEDS: ALBUTEROL/IPRATROPIUM (NEB) 3 ML AMP HHN PRN (00:33)
[2019-03-15] MEDS: ACCU-CHEK XX SCH (02:00)
[2019-03-15] MEDS ORDERED: LORAZEPAM 2 MG INJ IV ONE (02:30)
[2019-03-15] MEDS: AMPICILLIN 1 GM/NS (PMX) 50 ML IVPB SCH (05:33)
[2019-03-15] MEDS: ALBUTEROL/IPRATROPIUM (NEB) 3 ML AMP HHN SCH ×3 (05:46→12:56)
[2019-03-15] MEDS ORDERED: FUROSEMIDE 40 MG INJ IV ONE ×2 (06:00→15:00)
[2019-03-15] MEDS: LEVOFLOXACIN 250 MG TAB PO SCH (06:01)
[2019-03-15] MEDS: LEVOTHYROXINE 150 MCG TAB PO SCH (06:01)
[2019-03-15] MEDS: INSULIN ASPART [NOVOLOG] 3 ML PEN SC SCH ×7 (07:55→21:00)
[2019-03-15] MEDS: BUDESONIDE (NEB) 0.5MG/2ML AMP HHN SCH ×2 (08:48→19:58)
[2019-03-15] MEDS: FAMOTIDINE 20 MG TAB PO SCH (09:35)
[2019-03-15] MEDS: FERROUS SULFATE (EC) 325 MG TAB PO SCH (09:35)
[2019-03-15] MEDS: ASPIRIN 325 MG TAB PO SCH (09:35)
[2019-03-15] MEDS: AMLODIPINE 10 MG TAB PO SCH (09:35)
[2019-03-15] MEDS: GUAIFENESIN/CODEINE 5ML CUP PO PRN (09:38)
[2019-03-15] MEDS: HYDROCODONE/APAP (5/325) TAB PO PRN ×2 (09:38→14:05)
--- NOTE | 2019-03-15 13:44 | QN ---
Documentation Comment Comfortable. AFVSS R foot warm, 1st toe amp site dressed Incisions clean and dry, some serous drainage from the thigh incision, no erythema No hematoma, calf incisions clean and dry, water blisters at ankle intact, 3+ graft pulse Hg 8 WBC 7 - R foot well perfused s/p pop-DP bypass - OK for d/c when arranged - f/u with me in the [facility] next week ALVIN ENG MD Mar 15, 2019 13:44
[2019-03-15] MEDS: AMOXICILLIN 500 MG CAP PO SCH ×2 (14:05→21:22)
--- NOTE | 2019-03-15 14:57 | PN ---
Date/Time of Note Date/Time of Note DATE: 03/15/19 TIME: 14:55 Objective Vitals Vital Signs Date Temp Pulse Resp B/P (MAP) Pulse Ox O2 O2 Flow FiO2 Time Delivery Rate 03/15/19 Nasal 6.0 12:32 Cannula 03/15/19 64 12:00 03/15/19 98.7 16 128/58 100 11:02 (81) 03/14/19 28 17:07 Intake and Output 03/14/19 03/14/19 03/15/19 1515:00 23:00 07:00 IntakeIntake Total 300 ml 500 ml 700 ml OutputOutput Total 800 ml 700 ml 1050 ml BalanceBalance -500 ml -200 ml -350 ml Results Result Diagram: 03/15/1952503/15/19525 Medications Medications Current Medications Ondansetron HCl (Zofran Inj) 4 mg Q6H PRN IV NAUSEA AND/OR VOMITING Last administered on 02/21/19 06:47; Admin Dose 4 MG; Start 02/21/19 at 01:30 Acetaminophen (Tylenol Liquid) 650 mg Q6H PRN PO PAIN LEVEL 1-3 OR FEVER Last a dministered on 03/15/19at 00:16; Admin Dose 650 MG; Start 02/21/19 at 01:30 Acetaminophen/ Hydrocodone Bitart ([place] (5/325)) 1 tab Q6H PRN PO PAIN LEVEL 4-6 Last administered on 03/15/19 14:05; Admin Dose 1 TAB; Start 02/21/19 at 01:30 Atorvastatin Calcium (Lipitor) 40 mg QHS PO Last administered on 03/14/19 21:17; Admin Dose 40 MG; Start 02/21/19 at 21:00 Carvedilol (Coreg) 3.125 mg BID PO Last administered on 03/15/19 09:35; Admin Dose 3.125 MG; Start 02/21/19 at 09:00 Ferrous Sulfate (Ferrous Sulfate (Ec)) 325 mg QAM PO Last administered on 03/15/19 09:35; Admin Dose 325 MG; Start 02/21/19 at 09:00 Miscellaneous Information 1 ea NOTE XX Last administered on 03/15/19at 12:24; Admin Dose 1 EA; Start 02/21/19 at 06:00 Glucose (Glutose) 15 gm Q15M PRN PO DECREASED GLUCOSE; Start 02/21/19 at 06:00 Glucose (Glutose) 22.5 gm Q15M PRN PO DECREASED GLUCOSE; Start 02/21/19 at 06:00 Dextrose (D50w Syringe) 25 ml Q15M PRN IV DECREASED GLUCOSE; Start 02/21/19 at 06:00 Dextrose (D50w Syringe) 50 ml Q15M PRN IV DECREASED GLUCOSE; Start 02/21/19 at 06:00 Glucagon (Glucagen) 1 mg Q15M PRN IM DECREASED GLUCOSE; Start 02/21/19 at 06:00 Glucose (Glutose) 15 gm Q15M PRN BUCCAL DECREASED GLUCOSE; Start 02/21/19 at 06:00 Levothyroxine Sodium (Synthroid) 150 mcg BEFORE BREAKFAST PO Last administered on 03/15/19 06:01; Admin Dose 150 MCG; Start 02/25/19 at 07:00 Senna/Docusate Sodium (Senokot-S) 1 tab BID PRN PO constipation Last administered on 03/12/19 09:01; Admin Dose 1 TAB; Start 02/25/19 at 10:00 Bisacodyl (Dulcolax Supp) 10 mg DAILY PRN [place] CONSTIPATION Last administered on 03/15/19 06:01; Admin Dose 10 MG; Start 02/25/19 at 10:00 Budesonide (Pulmicort (Neb)) 0.5 mg BID RESP THERAPY HHN Last administered on 03/14/19 19:30; Admin Dose 0.5 MG; Start 02/26/19 at 20:00 Famotidine (Pepcid) 20 mg DAILY PO Last administered on 03/15/19 09:35; Admin Dose 20 MG; Start 02/27/19 at 09:00 Guaifenesin/ Codeine Phosphate (Robitussin Ac Liquid Cup) 5 ml Q4H PRN PO cough Last administered on 03/15/19 09:38; Admin Dose 5 ML; Start 03/01/19 at 10:30 Diagnostic Test (Pha) (Accu-Chek) 1 ea 02 XX Last administered on 03/14/19 01:52; Admin Dose 1 EA; Start 03/05/19 at 02:00 Losartan Potassium (Cozaar) 50 mg QPM PO Last administered on 03/14/19 21:17; Admin Dose 50 MG; Start 03/05/19 at 21:00 Insulin Aspart (Novolog Insulin Pen) 10 unit WITH MEALS SC Last administered on 03/15/19 08:23; Admin Dose 10 UNIT; Start 03/05/19 at 11:30 Insulin Glargine (Lantus) 30 units DAILY@2000 SC Last administered on 03/14/19 22:14; Admin Dose 30 UNITS; Start 03/05/19 at 20:00 Hydralazine HCl (Apresoline) 10 mg Q6H PRN IV SBP>160 Last administered on 03/09/19 12:40; Admin Dose 20 MG; Start 03/05/19 at 11:00 Levofloxacin (Levaquin) 250 mg DAILY@06 PO Last administered on 03/15/19 06:01; Admin Dose 250 MG; Start 03/09/19 at 06:00 Insulin Aspart (Novolog Insulin Pen) NOVOLOG *MILD* ALGORITHM WITH MEALS BEDTIME SC Last administered on 03/14/19 17:42; Admin Dose 1 UNIT; Start 03/09/19 at 17:35 Morphine Sulfate (morphine) 2 mg Q1H PRN IV SEVERE PAIN LEVEL 7-10 Last adm inistered on 03/14/19at 12:42; Admin Dose 2 MG; Start 03/10/19 at 08:00 Morphine Sulfate (morphine) 3 mg Q1H PRN IV SEVERE PAIN LEVEL 7-10; Start 03/10/19 at 08:00 Morphine Sulfate (morphine) 4 mg Q1H PRN IV SEVERE PAIN LEVEL 7-10; Start 03/10/19 at 08:00 Morphine Sulfate (morphine) 5 mg Q1H PRN IV SEVERE PAIN LEVEL 7-10; Start 03/10/19 at 08:00 Aspirin (Aspirin) 325 mg DAILY PO Last administered on 03/15/19 09:35; Admin Dose 325 MG; Start 03/11/19 at 11:30 Polyethylene Glycol (Miralax) 17 gm DAILY PRN PO CONSTIPATION; Start 03/13/19 at 14:30 Amlodipine Besylate (Norvasc) 10 mg DAILY PO Last administered on 03/15/19 09:35; Admin Dose 10 MG; Start 03/14/19 at 09:30 Furosemide (Lasix) 10 mg DAILY PO ; Start 6/21/19 at 09:00 Amoxicillin (Amoxicillin) 500 mg Q8 PO Last administered on 03/15/19at 14:05; Admin Dose 500 MG; Start 03/15/19 at 14:00 Levalbuterol (Xopenex Neb) 1.25 mg Q6H RESP THERAPY HHN ; Start 03/15/19 at 20:00; Status UNV Levalbuterol (Xopenex Neb) 1.25 mg Q6H RESP THERAPY PRN HHN wheezing; Start 03/15/19 at 15:00; Status UNV Ipratropium [place] (Atrovent 0.02% (Neb)) 0.5 mg Q6HWA RESP THERAPY HHN ; Start 03/15/19 at 20:00; Status UNV Ipratropium [place] (Atrovent 0.02% (Neb)) 0.5 mg Q6H RESP THERAPY PRN HHN shortness of breath; Start 03/15/19 at 15:00; Status UNV VTE Prophylaxis Risk score (from Ns)>0 risk: 11 SCD applied (from [facility] [place]): No SCD contraindication: other Lines/Catheters IV Catheter Type: Goodman in Place: No Assessment/Plan Hospital Course Subjective Patient had an episode of respiratory distress overnight, however very comfortable at this point now. Objective Physical exam General: Patient is laying in bed and answers questions appropriately Mentation: Patient is alert and oriented 4, Head: Normocephalic atraumatic Eyes: EOMI, pupils reactive to light Neck: Supple, nontender, midline Respiratory: No wheezing to auscultation bilaterally Cardiovascular: regular rate, no obvious murmurs Gastrointestinal: non-tender to palpation, bowel sounds heard. Neurological: Moves all extremities spontaneously Skin: Surgical site bandaged, CDI Assessment/Plan 1. Right great toe with gas gangrene s/p I&D 02/21, status post partial hallux amputation done on March 13, 2019 - Vascular surgery on board and appreciate consultation. Patient is s/p right popliteal to dorsalis pedis bypass 03/09 and partial hallux amputation done 03/13/19. restarted aspirin per vascular surgeon when appropriate, monitor hemoglobin closely - ID on board and will continue antibiotics at this time - pain control - Continue local wound care and dressing changes Acute hypoxic respiratory failure -possibly secondary to cardiac issues -Pulmonary edema seen on chest x-ray -Lasix IV x1 given, started on oral Lasix -Cardiology reconsulted -Titrate down O2 as tolerated, patient already doing much better after 1 dose of IV Lasix. 2. Peripheral artery disease s/p R pop-Dp bypass - Vascular input appreciated 3. Acute blood loss anemia -Transfuse as needed, monitor closely 4. Poorly controlled diabetes mellitus - A1c noted - Stable - continue insulin and will adjust for better control 5. CAD s/p PCI - continue aspirin/statin/beta-blockers - Cardiology consultation appreciated. 6. HTN - stable - continue current medications 7. Hypothyroidism - Continue Synthroid - will need outpatient repeat thyroid studies in 4-6 weeks 8. Hyperlipidemia - continue statin 9. Disposition -pod recs/vascular recs appreciated -pending SNF placement BRADLEY LEONG Mar 15, 2019 14:57
--- NOTE | 2019-03-15 14:59 | CONS ---
Assessment/Plan Assessment/Plan Hospital Course (Demo Recall) 1300 Awake, looks comfortable, no fevers Indwelling: Right IJ triple-lumen catheter Antimicrobials: Levaquin, ampicillin Microbiology: Right foot wound culture grew REAL and enterococcus species Physical examination: Obese well-developed fragile elderly woman who is alert in no distress. Head atraumatic normocephalic sclera nonicteric neck is supple chest rise symmetrical breath sounds clear heart: S1-S2. Abdomen soft bowel sounds present. Extremities: Right lower extremity dressing intact Assessment: 1. Right foot cellulitis with toe gangrene, s/p right partial hallux amputation 03/13/19 2. Peripheral arterial disease status post abdominal aortogram with right popliteal artery angioplasty 02/23/19, s/p bypass graft 03/09/19 3. Diabetes 4. CHF Plan: Remains stable, intraoperative cultures negative, change ampicillin to p.o., continue on current antibiotics for 6 more days Consultation Date/Type/Reason Admit Date/Time February 20, 2019 at 23:53 Initial Consult Date Type of Consult id Date/Time of Note DATE: 03/15/19 TIME: 14:58 Exam/Review of Systems Exam Vitals Vital Signs Date Temp Pulse Resp B/P (MAP) Pulse Ox O2 O2 Flow FiO2 Time Delivery Rate 03/15/19 Nasal 6.0 12:32 Cannula 03/15/19 64 12:00 03/15/19 98.7 16 128/58 100 11:02 (81) 03/14/19 28 17:07 Intake and Output 03/14/19 03/14/19 03/15/19 1515:00 23:00 07:00 IntakeIntake Total 300 ml 500 ml 700 ml OutputOutput Total 800 ml 700 ml 1050 ml BalanceBalance -500 ml -200 ml -350 ml Results Result Diagram: 03/15/19 0526 03/15/19 0526 Results 24hrs Laboratory Tests Test 03/14/19 17:28 03/14/19 21:12 03/15/19 01:55 03/15/19 05:26 Bedside Glucose 168 177 Blood Gas Blood arterial Specimen Source Arterial Blood 03/15/2019 2:35:3 Date Drawn 6 AM Arterial Blood pH 7.430 (Temp corrected) Arterial Blood 44.6 pCO2 (Temp correct) Arterial Blood 62.5 L pO2 (Temp corrected) Arterial Blood 28.9 H HCO3 Arterial Blood 4.2 H Base Excess Arterial Blood 92.8 L Oxygen Saturation Dread Test ACCEPTAB Arterial Blood Left Radial Gas Puncture Site Arterial 0.5 Blood Carboxyhemo globin Arterial Blood 0.2 Methemoglobin Blood Gas A-a O2 164.2 H Differential Oxyhemoglobin 92.2 L Percent Blood Gas 37.0 Temperature Blood Gas NASAL CANNULA Modality FiO2 39.0 Blood Gas MM Notified Whom Blood Gas 03/15/2019 2:42:0 Notified Time 8 AM White Blood Count 7.3 Red Blood Count 2.93 L Hemoglobin 8.7 L Hematocrit 26.3 L Mean Corpuscular 89.8 Volume Mean Corpuscular 29.7 Hemoglobin Mean Corpuscular 33.1 Hemoglobin Concen t Red Cell 14.5 Distribution Width Platelet Count 185 Mean Platelet 9.8 Volume Immature 0.500 H Granulocytes % Neutrophils % 71.5 Lymphocytes % 14.9 L Monocytes % 11.9 H Eosinophils % 0.8 Basophils % 0.4 Nucleated Red 0.0 Blood Cells % Immature 0.040 H Granulocytes # Neutrophils # 5.2 Lymphocytes # 1.1 Monocytes # 0.9 Eosinophils # 0.1 Basophils # 0.0 Nucleated Red 0.0 Blood Cells # Sodium Level 136 Potassium Level 4.2 Chloride Level 102 Carbon Dioxide 26 Level Anion Gap 8 Blood Urea 19 Nitrogen Creatinine 0.93 Est Glomerular Filtrat Rate mL/min Glucose Level 145 # Calcium Level 8.1 L Phosphorus Level 4.0 Magnesium Level 2.2 Test 03/15/19 08:20 03/15/19 12:20 03/15/19 12:50 03/15/19 13:01 Bedside Glucose 136 55 L 84 97 Medications Medication Current Medications Ondansetron HCl (Zofran Inj) 4 mg Q6H PRN IV NAUSEA AND/OR VOMITING Last administered on 02/21/19at 06:47; Admin Dose 4 MG; Start 02/21/19 at 01:30 Acetaminophen (Tylenol Liquid) 650 mg Q6H PRN PO PAIN LEVEL 1-3 OR FEVER Last administered on 03/15/19at 00:16; Admin Dose 650 MG; Start 02/21/19 at 01:30 Acetaminophen/ Hydrocodone Bitart ([place] (5/325)) 1 tab Q6H PRN PO PAIN LEVEL 4-6 Last administered on 03/15/19at 14:05; Admin Dose 1 TAB; Start 02/21/19 at 01:30 Atorvastatin Calcium (Lipitor) 40 mg QHS PO Last administered on 03/14/19 21:17; Admin Dose 40 MG; Start 02/21/19 at 21:00 Carvedilol (Coreg) 3.125 mg BID PO Last administered on 03/15/19 09:35; Admin Dose 3.125 MG; Start 02/21/19 at 09:00 Ferrous Sulfate (Ferrous Sulfate (Ec)) 325 mg QAM PO Last administered on 03/15/19 09:35; Admin Dose 325 MG; Start 02/21/19 at 09:00 Miscellaneous Information 1 ea NOTE XX Last administered on 03/15/19 12:24; Admin Dose 1 EA; Start 02/21/19 at 06:00 Glucose (Glutose) 15 gm Q15M PRN PO DECREASED GLUCOSE; Start 02/21/19 at 06:00 Glucose (Glutose) 22.5 gm Q15M PRN PO DECREASED GLUCOSE; Start 02/21/19 at 06:00 Dextrose (D50w Syringe) 25 ml Q15M PRN IV DECREASED GLUCOSE; Start 02/21/19 at 06:00 Dextrose (D50w Syringe) 50 ml Q15M PRN IV DECREASED GLUCOSE; Start 02/21/19 at 06:00 Glucagon (Glucagen) 1 mg Q15M PRN IM DECREASED GLUCOSE; Start 02/21/19 at 06:00 Glucose (Glutose) 15 gm Q15M PRN BUCCAL DECREASED GLUCOSE; Start 02/21/19 at 06:00 Levothyroxine Sodium (Synthroid) 150 mcg BEFORE BREAKFAST PO Last administered on 03/15/19at 06:01; Admin Dose 150 MCG; Start 02/25/19 at 07:00 Senna/Docusate Sodium (Senokot-S) 1 tab BID PRN PO constipation Last administered on 03/12/19 09:01; Admin Dose 1 TAB; Start 02/25/19 at 10:00 Bisacodyl (Dulcolax Supp) 10 mg DAILY PRN [place] CONSTIPATION Last administered on 03/15/19 06:01; Admin Dose 10 MG; Start 02/25/19 at 10:00 Budesonide (Pulmicort (Neb)) 0.5 mg BID RESP THERAPY HHN Last administered on 03/14/19 19:30; Admin Dose 0.5 MG; Start 02/26/19 at 20:00 Famotidine (Pepcid) 20 mg DAILY PO Last administered on 03/15/19 09:35; Admin Dose 20 MG; Start 02/27/19 at 09:00 Guaifenesin/ Codeine Phosphate (Robitussin Ac Liquid Cup) 5 ml Q4H PRN PO cough Last administered on 03/15/19 09:38; Admin Dose 5 ML; Start 03/01/19 at 10:30 Diagnostic Test (Pha) (Accu-Chek) 1 ea 02 XX Last administered on 03/14/19 01:52; Admin Dose 1 EA; Start 03/05/19 at 02:00 Losartan Potassium (Cozaar) 50 mg QPM PO Last administered on 03/14/19 21:17; Admin Dose 50 MG; Start 03/05/19 at 21:00 Insulin Aspart (Novolog Insulin Pen) 10 unit WITH MEALS SC Last administered on 03/15/19 08:23; Admin Dose 10 UNIT; Start 03/05/19 at 11:30 Insulin Glargine (Lantus) 30 units DAILY@2000 SC Last administered on 03/14/19 22:14; Admin Dose 30 UNITS; Start 03/05/19 at 20:00 Hydralazine HCl (Apresoline) 10 mg Q6H PRN IV SBP>160 Last administered on 03/09/19 12:40; Admin Dose 20 MG; Start 03/05/19 at 11:00 Levofloxacin (Levaquin) 250 mg DAILY@06 PO Last administered on 03/15/19 06:01; Admin Dose 250 MG; Start 03/09/19 at 06:00 Insulin Aspart (Novolog Insulin Pen) NOVOLOG *MILD* ALGORITHM WITH MEALS BEDT EVELIN SC Last administered on 03/14/19 17:42; Admin Dose 1 UNIT; Start 03/09/19 at 17:35 Morphine Sulfate (morphine) 2 mg Q1H PRN IV SEVERE PAIN LEVEL 7-10 Last administered on 03/14/19 12:42; Admin Dose 2 MG; Start 03/10/19 at 08:00 Morphine Sulfate (morphine) 3 mg Q1H PRN IV SEVERE PAIN LEVEL 7-10; Start 03/10/19 at 08:00 Morphine Sulfate (morphine) 4 mg Q1H PRN IV SEVERE PAIN LEVEL 7-10; Start 03/10/19 at 08:00 Morphine Sulfate (morphine) 5 mg Q1H PRN IV SEVERE PAIN LEVEL 7-10; Start at 08:00 Aspirin (Aspirin) 325 mg DAILY PO Last administered on 03/15/19at 09:35; Admin Dose 325 MG; Start 03/11/19 at 11:30 Polyethylene Glycol (Miralax) 17 gm DAILY PRN PO CONSTIPATION; Start 03/13/19 at 14:30 Amlodipine Besylate (Norvasc) 10 mg DAILY PO Last administered on 03/15/19at 09:35; Admin Dose 10 MG; Start 03/14/19 at 09:30 Furosemide (Lasix) 10 mg DAILY PO ; Start 03/16/19 at 09:00 Amoxicillin (Amoxicillin) 500 mg Q8 PO Last administered on 03/15/19at 14:05; Admin Dose 500 MG; Start 03/15/19 at 14:00 Levalbuterol (Xopenex Neb) 1.25 mg Q6H RESP THERAPY HHN ; Start 03/15/19 at 20:00; Status UNV Levalbuterol (Xopenex Neb) 1.25 mg Q6H RESP THERAPY PRN HHN wheezing; Start 03/15/19 at 15:00; Status UNV Ipratropium [place] (Atrovent 0.02% (Neb)) 0.5 mg Q6HWA RESP THERAPY HHN ; Start 03/15/19 at 20:00; Status UNV Ipratropium [place] (Atrovent 0.02% (Neb)) 0.5 mg Q6H RESP THERAPY PRN HHN shortness of breath; Start 03/15/19 at 15:00; Status UNV TORI GARCIA NP Mar 15, 2019 14:59
[2019-03-15] MEDS ORDERED: LEVALBUTEROL (NEB) 1.25 MG/0.5 ML AMP HHN PRN (15:00)
--- NOTE | 2019-03-15 15:06 | CONS ---
Assessment/Plan Cardiology NYHA: II Heart Failure Type: Acute Heart Failure Type: Diastolic Assessment/Plan Hospital Course (Demo Recall) Acute decompensated diastolic congestive heart failure Gas gangrene right foot s/p debridement PAD status post lower extremity bypass CAD with history of PCI, most recently December 2017 Diabetes, uncontrolled Hypertension Dyslipidemia Patient with shortness of breath overnight, chest x-ray with pulmonary vascular congestion Would increase diuretic regimen Continue blood pressure control Decrease aspirin to 81 mg daily. If hemoglobin remains stable, would consider switching to Plavix given patient with peripheral arterial disease, coronary artery disease Continue statin therapy as tolerated Consultation Date/Type/Reason Admit Date/Time February 20, 2019 at 23:53 Initial Consult Date Type of Consult Cardiology Date/Time of Note DATE: 03/15/19 TIME: 15:02 24 HR Interval Summary Free Text/Dictation Shortness of breath last night. Did not improve after nebulizer but better after other medications given. Denies chest pain. Feeling better this morning Exam/Review of Systems Vital Signs Vitals Vital Signs Date Temp Pulse Resp B/P (MAP) Pulse Ox O2 O2 Flow FiO2 Time Delivery Rate 03/15/19 Nasal 6.0 12:32 Cannula 03/15/19 64 12:00 03/15/19 98.7 16 128/58 100 11:02 (81) 03/14/19 28 17:07 Intake and Output 03/14/19 03/14/19 03/15/19 1515:00 23:00 07:00 IntakeIntake Total 300 ml 500 ml 700 ml OutputOutput Total 800 ml 700 ml 1050 ml BalanceBalance -500 ml -200 ml -350 ml Exam Constitutional: alert, oriented (No apparent distress, no dyspnea with speaking, family bedside) Head: normocephalic Respiratory: other (Coarse breath sounds bilaterally, no wheezing) Cardiovascular: regular rate and rhythm (S1-S2 heard) Gastrointestinal: soft, non-tender, bowel sounds Musculoskeletal: other (Bandage lower extremities) Labs Result Diagram: 03/15/1952503/15/19525 Results 24hrs Laboratory Tests Test 03/14/19 17:28 03/14/19 21:12 03/15/19 01:55 03/15/19 05:26 Bedside Glucose 168 177 Blood Gas Blood arterial Specimen Source Arterial Blood 03/15/2019 2:35:3 Date Drawn 6 AM Arterial Blood pH 7.430 (Temp corrected) Arterial Blood 44.6 pCO2 (Temp correct) Arterial Blood 62.5 L pO2 (Temp corrected) Arterial Blood 28.9 H HCO3 Arterial Blood 4.2 H Base Excess Arterial Blood 92.8 L Oxygen Saturation Dread Test ACCEPTAB Arterial Blood Left Radial Gas Puncture Site Arterial 0.5 Blood Carboxyhemo globin Arterial Blood 0.2 Methemoglobin Blood Gas A-a O2 164.2 H Differential Oxyhemoglobin 92.2 L Percent Blood Gas 37.0 Temperature Blood Gas NASAL CANNULA Modality FiO2 39.0 Blood Gas MM Notified Whom Blood Gas 03/15/2019 2:42:0 Notified Time 8 AM White Blood Count 7.3 Red Blood Count 2.93 L Hemoglobin 8.7 L Hematocrit 26.3 L Mean Corpuscular 89.8 Volume Mean Corpuscular 29.7 Hemoglobin Mean Corpuscular 33.1 Hemoglobin Concen t Red Cell 14.5 Distribution Width Platelet Count 185 Mean Platelet 9.8 Volume Immature 0.500 H Granulocytes % Neutrophils % 71.5 Lymphocytes % 14.9 L Monocytes % 11.9 H Eosinophils % 0.8 Basophils % 0.4 Nucleated Red 0.0 Blood Cells % Immature 0.040 H Granulocytes # Neutrophils # 5.2 Lymphocytes # 1.1 Monocytes # 0.9 Eosinophils # 0.1 Basophils # 0.0 Nucleated Red 0.0 Blood Cells # Sodium Level 136 Potassium Level 4.2 Chloride Level 102 Carbon Dioxide 26 Level Anion Gap 8 Blood Urea 19 Nitrogen Creatinine 0.93 Est Glomerular Filtrat Rate mL/min Glucose Level 145 # Calcium Level 8.1 L Phosphorus Level 4.0 Magnesium Level 2.2 Test 03/15/19 08:20 03/15/19 12:20 03/15/19 12:50 03/15/19 13:01 Bedside Glucose 136 55 L 84 97 Medications Medications Current Medications Ondansetron HCl (Zofran Inj) 4 mg Q6H PRN IV NAUSEA AND/OR VOMITING Last administered on 02/21/19at 06:47; Admin Dose 4 MG; Start 02/21/19 at 01:30 Acetaminophen (Tylenol Liquid) 650 mg Q6H PRN PO PAIN LEVEL 1-3 OR FEVER Last administered on 03/15/19at 00:16; Admin Dose 650 MG; Start 02/21/19 at 01:30 Acetaminophen/ Hydrocodone Bitart ([place] (5/325)) 1 tab Q6H PRN PO PAIN LEVEL 4-6 Last administered on 03/15/19at 14:05; Admin Dose 1 TAB; Start 02/21/19 at 01:30 Atorvastatin Calcium (Lipitor) 40 mg QHS PO Last administered on 03/14/19 21:17; Admin Dose 40 MG; Start 02/21/19 at 21:00 Carvedilol (Coreg) 3.125 mg BID PO Last administered on 03/15/19 09:35; Admin Dose 3.125 MG; Start 02/21/19 at 09:00 Ferrous Sulfate (Ferrous Sulfate (Ec)) 325 mg QAM PO Last administered on 03/15/19 09:35; Admin Dose 325 MG; Start 02/21/19 at 09:00 Miscellaneous Information 1 ea NOTE XX Last administered on 03/15/19at 12:24; Admin Dose 1 EA; Start 02/21/19 at 06:00 Glucose (Glutose) 15 gm Q15M PRN PO DECREASED GLUCOSE; Start 02/21/19 at 06:00 Glucose (Glutose) 22.5 gm Q15M PRN PO DECREASED GLUCOSE; Start 02/21/19 at 06:00 Dextrose (D50w Syringe) 25 ml Q15M PRN IV DECREASED GLUCOSE; Start 02/21/19 at 06:00 Dextrose (D50w Syringe) 50 ml Q15M PRN IV DECREASED GLUCOSE; Start 02/21/19 at 06:00 Glucagon (Glucagen) 1 mg Q15M PRN IM DECREASED GLUCOSE; Start 02/21/19 at 06:00 Glucose (Glutose) 15 gm Q15M PRN BUCCAL DECREASED GLUCOSE; Start 02/21/19 at 06:00 Levothyroxine Sodium (Synthroid) 150 mcg BEFORE BREAKFAST PO Last administered on 03/15/19 06:01; Admin Dose 150 MCG; Start 02/25/19 at 07:00 Senna/Docusate Sodium (Senokot-S) 1 tab BID PRN PO constipation Last administered on 03/12/19 09:01; Admin Dose 1 TAB; Start 02/25/19 at 10:00 Bisacodyl (Dulcolax Supp) 10 mg DAILY PRN [place] CONSTIPATION Last administered on 03/15/19 06:01; Admin Dose 10 MG; Start 02/25/19 at 10:00 Budesonide (Pulmicort (Neb)) 0.5 mg BID RESP THERAPY HHN Last administered on 03/14/19 19:30; Admin Dose 0.5 MG; Start 02/26/19 at 20:00 Famotidine (Pepcid) 20 mg DAILY PO Last administered on 03/15/19 09:35; Admin Dose 20 MG; Start 02/27/19 at 09:00 Guaifenesin/ Codeine Phosphate (Robitussin Ac Liquid Cup) 5 ml Q4H PRN PO cough Last administered on 03/15/19 09:38; Admin Dose 5 ML; Start 03/01/19 at 10:30 Diagnostic Test (Pha) (Accu-Chek) 1 ea 02 XX Last administered on 03/14/19 01:52; Admin Dose 1 EA; Start 03/05/19 at 02:00 Losartan Potassium (Cozaar) 50 mg QPM PO Last administered on 03/14/19 21:17; Admin Dose 50 MG; Start 03/05/19 at 21:00 Insulin Aspart (Novolog Insulin Pen) 10 unit WITH MEALS SC Last administered on 03/15/19 08:23; Admin Dose 10 UNIT; Start 03/05/19 at 11:30 Insulin Glargine (Lantus) 30 units DAILY@2000 SC Last administered on 03/14/19 22:14; Admin Dose 30 UNITS; Start 03/05/19 at 20:00 Hydralazine HCl (Apresoline) 10 mg Q6H PRN IV SBP>160 Last administered on 03/09/19 12:40; Admin Dose 20 MG; Start 03/05/19 at 11:00 Levofloxacin (Levaquin) 250 mg DAILY@06 PO Last administered on 03/15/19 06:01; Admin Dose 250 MG; Start 03/09/19 at 06:00 Insulin Aspart (Novolog Insulin Pen) NOVOLOG *MILD* ALGORITHM WITH MEALS BEDTIME SC Last administered on 03/14/19 17:42; Admin Dose 1 UNIT; Start 03/09/19 at 17:35 Morphine Sulfate (morphine) 2 mg Q1H PRN IV SEVERE PAIN LEVEL 7-10 Last administered on 03/14/19 12:42; Admin Dose 2 MG; Start 03/10/19 at 08:00 Morphine Sulfate (morphine) 3 mg Q1H PRN IV SEVERE PAIN LEVEL 7-10; Start 03/10/19 at 08:00 Morphine Sulfate (morphine) 4 mg Q1H PRN IV SEVERE PAIN LEVEL 7-10; Start 03/10/19 at 08:00 Morphine Sulfate (morphine) 5 mg Q1H PRN IV SEVERE PAIN LEVEL 7-10; Start 03/10/19 at 08:00 Aspirin (Aspirin) 325 mg DAILY PO Last administered on 03/15/19at 09:35; Admin Dose 325 MG; Start 03/11/19 at 11:30 Polyethylene Glycol (Miralax) 17 gm DAILY PRN PO CONSTIPATION; Start 03/13/19 at 14:30 Amlodipine Besylate (Norvasc) 10 mg DAILY PO Last administered on 03/15/19at 09:35; Admin Dose 10 MG; Start 03/14/19 at 09:30 Furosemide (Lasix) 10 mg DAILY PO ; Start 03/16/19 at 09:00 Amoxicillin (Amoxicillin) 500 mg Q8 PO Last administered on 03/15/19at 14:05; Admin Dose 500 MG; Start 03/15/19 at 14:00 Levalbuterol (Xopenex Neb) 1.25 mg Q6H RESP THERAPY HHN ; Start 03/15/19 at 20:00; Status UNV Levalbuterol (Xopenex Neb) 1.25 mg Q6H RESP THERAPY PRN HHN wheezing; Start 03/15/19 at 15:00; Status UNV Ipratropium [place] (Atrovent 0.02% (Neb)) 0.5 mg Q6HWA RESP THERAPY HHN ; Start 03/15/19 at 20:00; Status UNV Ipratropium [place] (Atrovent 0.02% (Neb)) 0.5 mg Q6H RESP THERAPY PRN HHN shortness of breath; Start 03/15/19 at 15:00; Status PAMV Jeremy Alarcon DO Mar 15, 2019 15:06
[2019-03-15] MEDS: LEVALBUTEROL (NEB) 1.25 MG/0.5 ML AMP HHN SCH (19:58)
[2019-03-15] MEDS: IPRATROPIUM (NEB) 0.5 MG/2.5 ML AMP HHN SCH (19:58)
[2019-03-15] MEDS: ATORVASTATIN 40 MG TAB PO SCH (21:22)
[2019-03-15] MEDS: LOSARTAN 50 MG TAB PO SCH (21:24)
[2019-03-15] MEDS: INSULIN GLARGINE [LANTus] (100 UNITS/ML) SYG SC SCH (21:45)
[2019-03-16] VITALS (13 sets, daily range): BP systolic 106–121; BP diastolic 56–65; PULSE 60–88; RESP 18–20
[2019-03-16] MEDS: LEVALBUTEROL (NEB) 1.25 MG/0.5 ML AMP HHN SCH ×4 (01:32→19:48)
[2019-03-16] MEDS: ACCU-CHEK XX SCH (02:00)
[2019-03-16] MEDS: morphine 2 MG INJ IV PRN (05:17)
[2019-03-16] MEDS: AMOXICILLIN 500 MG CAP PO SCH ×3 (06:32→23:10)
[2019-03-16] MEDS: LEVOFLOXACIN 250 MG TAB PO SCH (06:32)
[2019-03-16] MEDS: LEVOTHYROXINE 150 MCG TAB PO SCH (06:32)
[2019-03-16] MEDS: FUROSEMIDE 20 MG INJ IV SCH ×2 (06:33→17:56)
[2019-03-16] MEDS: INSULIN ASPART [NOVOLOG] 3 ML PEN SC SCH ×7 (07:55→20:40)
[2019-03-16] MEDS: IPRATROPIUM (NEB) 0.5 MG/2.5 ML AMP HHN SCH ×3 (08:13→19:48)
[2019-03-16] MEDS: BUDESONIDE (NEB) 0.5MG/2ML AMP HHN SCH ×2 (08:27→19:47)
[2019-03-16] MEDS ORDERED: FUROSEMIDE 20 MG TAB PO SCH (09:00)
[2019-03-16] MEDS: FAMOTIDINE 20 MG TAB PO SCH (09:50)
[2019-03-16] MEDS: FERROUS SULFATE (EC) 325 MG TAB PO SCH (09:50)
[2019-03-16] MEDS: ASPIRIN 81 MG TAB PO SCH (09:50)
[2019-03-16] MEDS: AMLODIPINE 10 MG TAB PO SCH (09:51)
--- NOTE | 2019-03-16 11:00 | CONS ---
Assessment/Plan Assessment/Plan Hospital Course (Demo Recall) No acute events, all noted, nad Indwelling: Right IJ triple-lumen catheter Antimicrobials: Levaquin, amoxicillin Microbiology: Right foot wound culture grew REAL and enterococcus species Physical examination: Obese well-developed fragile elderly woman who is alert in no distress. Head atraumatic normocephalic sclera nonicteric neck is supple chest rise symmetrical breath sounds clear heart: S1-S2. Abdomen soft bowel sounds present. Extremities: Right lower extremity dressing intact Assessment: 1. Right foot cellulitis with toe gangrene, s/p right partial hallux amputation 03/13/19 2. Peripheral arterial disease status post abdominal aortogram with right popliteal artery angioplasty 02/23/19, s/p bypass graft 03/09/19 3. Diabetes 4. CHF Plan: Stable, continue on current antibiotics for 5 more days, podiatry/cardiology rec-s Consultation Date/Type/Reason Admit Date/Time February 20, 2019 at 23:53 Initial Consult Date Type of Consult id Date/Time of Note DATE: 03/16/19 TIME: 10:59 Exam/Review of Systems Exam Vitals Vital Signs Date Temp Pulse Resp B/P (MAP) Pulse Ox O2 O2 Flow FiO2 Time Delivery Rate 03/16/19 65 08:43 03/16/19 Nasal 6.0 07:56 Cannula 03/16/19 98.9 121/64 97 07:20 (83) 03/16/19 18 04:06 03/14/19 28 17:07 Intake and Output 03/15/19 03/15/19 03/16/19 1515:00 23:00 07:00 IntakeIntake Total 300 ml 1470 ml 300 ml OutputOutput Total 2150 ml 800 ml 1700 ml BalanceBalance -1850 ml 670 ml -1400 ml Results Result Diagram: 03/16/19 0529 03/16/19 0529 Results 24hrs Laboratory Tests Test 03/15/19 12:20 03/15/19 12:50 03/15/19 13:01 03/15/19 16:54 Bedside Glucose 55 L 84 97 147 Test 03/15/19 21:20 03/16/19 05:29 03/16/19 08:17 Bedside Glucose 144 84 White Blood Count 7.9 Red Blood Count 3.04 L Hemoglobin 8.8 L Hematocrit 27.1 L Mean Corpuscular 89.1 Volume Mean Corpuscular 28.9 L Hemoglobin Mean Corpuscular 32.5 Hemoglobin Concent Red Cell 14.6 H Distribution Width Platelet Count 211 Mean Platelet Volume 9.8 Immature 0.500 H Granulocytes % Neutrophils % 73.3 Lymphocytes % 16.2 Monocytes % 8.5 Eosinophils % 1.1 Basophils % 0.4 Nucleated Red Blood 0.0 Cells % Immature 0.040 H Granulocytes # Neutrophils # 5.8 Lymphocytes # 1.3 Monocytes # 0.7 Eosinophils # 0.1 Basophils # 0.0 Nucleated Red Blood 0.0 Cells # Sodium Level 138 Potassium Level 4.0 Chloride Level 101 Carbon Dioxide Level 30 Anion Gap 7 Blood Urea Nitrogen 26 H Creatinine 0.96 Est Glomerular Filtrat Rate mL/min Glucose Level 90 # Calcium Level 8.4 Phosphorus Level 4.7 Magnesium Level 2.0 Medications Medication Current Medications Ondansetron HCl (Zofran Inj) 4 mg Q6H PRN IV NAUSEA AND/OR VOMITING Last administered on 02/21/19 06:47; Admin Dose 4 MG; Start 02/21/19 at 01:30 Acetaminophen (Tylenol Liquid) 650 mg Q6H PRN PO PAIN LEVEL 1-3 OR FEVER Last administered on 03/15/19 00:16; Admin Dose 650 MG; Start 02/21/19 at 01:30 Acetaminophen/ Hydrocodone Bitart ([place] (5/325)) 1 tab Q6H PRN PO PAIN LEVEL 4-6 Last administered on 03/15/19 14:05; Admin Dose 1 TAB; Start 02/21/19 at 01:30 Atorvastatin Calcium (Lipitor) 40 mg QHS PO Last administered on 03/15/19 21:22; Admin Dose 40 MG; Start 02/21/19 at 21:00 Carvedilol (Coreg) 3.125 mg BID PO Last administered on 03/16/19 09:51; Admin Dose 3.125 MG; Start 02/21/19 at 09:00 Ferrous Sulfate (Ferrous Sulfate (Ec)) 325 mg QAM PO Last administered on 03/16/19 09:50; Admin Dose 325 MG; Start 02/21/19 at 09:00 Miscellaneous Information 1 ea NOTE XX Last administered on 03/15/19 12:24; Admin Dose 1 EA; Start 02/21/19 at 06:00 Glucose (Glutose) 15 gm Q15M PRN PO DECREASED GLUCOSE; Start 02/21/19 at 06:00 Glucose (Glutose) 22.5 gm Q15M PRN PO DECREASED GLUCOSE; Start 02/21/19 at 06:00 Dextrose (D50w Syringe) 25 ml Q15M PRN IV DECREASED GLUCOSE; Start 02/21/19 at 06:00 Dextrose (D50w Syringe) 50 ml Q15M PRN IV DECREASED GLUCOSE; Start 02/21/19 at 06:00 Glucagon (Glucagen) 1 mg Q15M PRN IM DECREASED GLUCOSE; Start 02/21/19 at 06:00 Glucose (Glutose) 15 gm Q15M PRN BUCCAL DECREASED GLUCOSE; Start 02/21/19 at 06:00 Levothyroxine Sodium (Synthroid) 150 mcg BEFORE BREAKFAST PO Last administered on 03/16/19at 06:32; Admin Dose 150 MCG; Start 02/25/19 at 07:00 Senna/Docusate Sodium (Senokot-S) 1 tab BID PRN PO constipation Last administered on 03/12/19 09:01; Admin Dose 1 TAB; Start 02/25/19 at 10:00 Bisacodyl (Dulcolax Supp) 10 mg DAILY PRN [place] CONSTIPATION Last administered on 03/15/19 06:01; Admin Dose 10 MG; Start 02/25/19 at 10:00 Budesonide (Pulmicort (Neb)) 0.5 mg BID RESP THERAPY HHN Last administered on 03/16/19 08:27; Admin Dose 0.5 MG; Start 02/26/19 at 20:00 Famotidine (Pepcid) 20 mg DAILY PO Last administered on 03/16/19at 09:50; Admin Dose 20 MG; Start 02/27/19 at 09:00 Guaifenesin/ Codeine Phosphate (Robitussin Ac Liquid Cup) 5 ml Q4H PRN PO cough Last administered on 03/15/19at 09:38; Admin Dose 5 ML; Start 03/01/19 at 10:30 Diagnostic Test (Pha) (Accu-Chek) 1 ea 02 XX Last administered on 03/14/19at 01:52; Admin Dose 1 EA; Start 03/05/19 at 02:00 Losartan Potassium (Cozaar) 50 mg QPM PO Last administered on 03/15/19 21:24; Admin Dose 50 MG; Start 03/05/19 at 21:00 Insulin Aspart (Novolog Insulin Pen) 10 unit WITH MEALS SC Last administered on 03/15/19 17:04; Admin Dose 10 UNIT; Start 03/05/19 at 11:30 Insulin Glargine (Lantus) 30 units DAILY@2000 SC Last administered on 03/15/19 21:45; Admin Dose 30 UNITS; Start 03/05/19 at 20:00 Hydralazine HCl (Apresoline) 10 mg Q6H PRN IV SBP>160 Last administered on 03/09/19 12:40; Admin Dose 20 MG; Start 03/05/19 at 11:00 Levofloxacin (Levaquin) 250 mg DAILY@06 PO Last administered on 03/16/19 06:32; Admin Dose 250 MG; Start 03/09/19 at 06:00 Insulin Aspart (Novolog Insulin Pen) NOVOLOG *MILD* ALGORITHM WITH MEALS BEDTIME SC Last administered on 03/15/19 17:03; Admin Dose 1 UNIT; Start 03/09/19 at 17:35 Morphine Sulfate (morphine) 2 mg Q1H PRN IV SEVERE PAIN LEVEL 7-10 Last administered on 03/16/19 05:17; Admin Dose 2 MG; Start 03/10/19 at 08:00 Morphine Sulfate (morphine) 3 mg Q1H PRN IV SEVERE PAIN LEVEL 7-10; Start 03/10/19 at 08:00 Morphine Sulfate (morphine) 4 mg Q1H PRN IV SEVERE PAIN LEVEL 7-10; Start 03/10/19 at 08:00 Morphine Sulfate (morphine) 5 mg Q1H PRN IV SEVERE PAIN LEVEL 7-10; Start 03/10/19 at 08:00 Polyethylene Glycol (Miralax) 17 gm DAILY PRN PO CONSTIPATION; Start 03/13/19 at 14:30 Amlodipine Besylate (Norvasc) 10 mg DAILY PO Last administered on 03/16/19at 09:51; Admin Dose 10 MG; Start 03/14/19 at 09:30 Amoxicillin (Amoxicillin) 500 mg Q8 PO Last administered on 03/16/19 06:32; Admin Dose 500 MG; Start 03/15/19 at 14:00 Levalbuterol (Xopenex Neb) 1.25 mg Q6H RESP THERAPY HHN Last administered on 03/16/19at 08:14; Admin Dose 1.25 MG; Start 03/15/19 at 20:00 Levalbuterol (Xopenex Neb) 1.25 mg Q6H RESP THERAPY PRN HHN wheezing; Start 03/15/19 at 15:00 Ipratropium [place] (Atrovent 0.02% (Neb)) 0.5 mg Q6HWA RESP THERAPY HHN Last administered on 03/16/19at 08:13; Admin Dose 0.5 MG; Start 03/15/19 at 20:00 Ipratropium [place] (Atrovent 0.02% (Neb)) 0.5 mg Q6H RESP THERAPY PRN HHN shortness of breath; Start 03/15/19 at 15:00 Aspirin (Aspirin) 81 mg DAILY PO Last administered on 03/16/19at 09:50; Admin Dose 81 MG; Start 03/16/19 at 09:00 Furosemide (Lasix) 20 mg BID DIURETICS IV Last administered on 03/16/19at 0 6:33; Admin Dose 20 MG; Start 03/16/19 at 06:00 TORI GARCIA NP Mar 16, 2019 11:00
--- NOTE | 2019-03-16 14:30 | CONS ---
Assessment/Plan Cardiology NYHA: II Heart Failure Type: Acute Heart Failure Type: Diastolic Assessment/Plan Assessment/Plan (Daily) Acute decompensated diastolic congestive heart failure Gas gangrene right foot s/p debridement PAD status post lower extremity bypass CAD with history of PCI, most recently December 2017 Diabetes, uncontrolled Hypertension Dyslipidemia continue diuretic regimen Continue blood pressure control Decrease aspirin to 81 mg daily. If hemoglobin remains stable, would consider switching to Plavix given patient with peripheral arterial disease, coronary artery disease Continue statin therapy as tolerated Consultation Date/Type/Reason Admit Date/Time February 20, 2019 at 23:53 Initial Consult Date Type of Consult Cardiology Date/Time of Note DATE: 03/16/19 TIME: 14:29 24 HR Interval Summary Free Text/Dictation the patienbt with no cahgne Exam/Review of Systems Vital Signs Vitals Vital Signs Date Temp Pulse Resp B/P (MAP) Pulse Ox O2 O2 Flow FiO2 Time Delivery Rate 03/16/19 Nasal 3.0 13:36 Cannula 03/16/19 95 13:36 03/16/19 63 18 13:26 03/16/19 98.2 115/58 11:04 (77) 03/14/19 28 17:07 Intake and Output 03/15/19 03/15/19 03/16/19 1515:00 23:00 07:00 IntakeIntake Total 300 ml 1470 ml 300 ml OutputOutput Total 2150 ml 800 ml 1700 ml BalanceBalance -1850 ml 670 ml -1400 ml Labs Result Diagram: 03/16/19 0529 03/16/19 0529 Results 24hrs Laboratory Tests Test 03/15/19 16:54 03/15/19 21:20 03/16/19 05:29 03/16/19 08:17 Bedside Glucose 147 144 84 White Blood Count 7.9 Red Blood Count 3.04 L Hemoglobin 8.8 L Hematocrit 27.1 L Mean Corpuscular 89.1 Volume Mean Corpuscular 28.9 L Hemoglobin Mean Corpuscular 32.5 Hemoglobin Concent Red Cell 14.6 H Distribution Width Platelet Count 211 Mean Platelet Volume 9.8 Immature 0.500 H Granulocytes % Neutrophils % 73.3 Lymphocytes % 16.2 Monocytes % 8.5 Eosinophils % 1.1 Basophils % 0.4 Nucleated Red Blood 0.0 Cells % Immature 0.040 H Granulocytes # Neutrophils # 5.8 Lymphocytes # 1.3 Monocytes # 0.7 Eosinophils # 0.1 Basophils # 0.0 Nucleated Red Blood 0.0 Cells # Sodium Level 138 Potassium Level 4.0 Chloride Level 101 Carbon Dioxide Level 30 Anion Gap 7 Blood Urea Nitrogen 26 H Creatinine 0.96 Est Glomerular Filtrat Rate mL/min Glucose Level 90 # Calcium Level 8.4 Phosphorus Level 4.7 Magnesium Level 2.0 Test 03/16/19 12:05 Bedside Glucose 131 Medications Medications Current Medications Ondansetron HCl (Zofran Inj) 4 mg Q6H PRN IV NAUSEA AND/OR VOMITING Last administered on 02/21/19 06:47; Admin Dose 4 MG; Start 02/21/19 at 01:30 Acetaminophen (Tylenol Liquid) 650 mg Q6H PRN PO PAIN LEVEL 1-3 OR FEVER Last administered on 03/15/19 00:16; Admin Dose 650 MG; Start 02/21/19 at 01:30 Acetaminophen/ Hydrocodone Bitart ([place] (5/325)) 1 tab Q6H PRN PO PAIN LEVEL 4-6 Last administered on 03/15/19 14:05; Admin Dose 1 TAB; Start 02/21/19 at 01:30 Atorvastatin Calcium (Lipitor) 40 mg QHS PO Last administered on 03/15/19 21:22; Admin Dose 40 MG; Start 02/21/19 at 21:00 Carvedilol (Coreg) 3.125 mg BID PO Last administered on 03/16/19 09:51; Admin Dose 3.125 MG; Start 02/21/19 at 09:00 Ferrous Sulfate (Ferrous Sulfate (Ec)) 325 mg QAM PO Last administered on 03/16/19 09:50; Admin Dose 325 MG; Start 02/21/19 at 09:00 Miscellaneous Information 1 ea NOTE XX Last administered on 03/15/19 12:24; Admin Dose 1 EA; Start 02/21/19 at 06:00 Glucose (Glutose) 15 gm Q15M PRN PO DECREASED GLUCOSE; Start 02/21/19 at 06:00 Glucose (Glutose) 22.5 gm Q15M PRN PO DECREASED GLUCOSE; Start 02/21/19 at 06:00 Dextrose (D50w Syringe) 25 ml Q15M PRN IV DECREASED GLUCOSE; Start 02/21/19 at 06:00 Dextrose (D50w Syringe) 50 ml Q15M PRN IV DECREASED GLUCOSE; Start 02/21/19 at 06:00 Glucagon (Glucagen) 1 mg Q15M PRN IM DECREASED GLUCOSE; Start 02/21/19 at 06:00 Glucose (Glutose) 15 gm Q15M PRN BUCCAL DECREASED GLUCOSE; Start 02/21/19 at 06:00 Levothyroxine Sodium (Synthroid) 150 mcg BEFORE BREAKFAST PO Last administered on 03/16/19 06:32; Admin Dose 150 MCG; Start 02/25/19 at 07:00 Senna/Docusate Sodium (Senokot-S) 1 tab BID PRN PO constipation Last administered on 03/12/19 09:01; Admin Dose 1 TAB; Start 02/25/19 at 10:00 Bisacodyl (Dulcolax Supp) 10 mg DAILY PRN [place] CONSTIPATION Last administered on 03/15/19 06:01; Admin Dose 10 MG; Start 02/25/19 at 10:00 Budesonide (Pulmicort (Neb)) 0.5 mg BID RESP THERAPY HHN Last administered on 03/16/19 08:27; Admin Dose 0.5 MG; Start 02/26/19 at 20:00 Famotidine (Pepcid) 20 mg DAILY PO Last administered on 03/16/19 09:50; Admin Dose 20 MG; Start 02/27/19 at 09:00 Guaifenesin/ Codeine Phosphate (Robitussin Ac Liquid Cup) 5 ml Q4H PRN PO cough Last administered on 03/15/19 09:38; Admin Dose 5 ML; Start 03/01/19 at 10:30 Diagnostic Test (Pha) (Accu-Chek) 1 ea 02 XX Last administered on 03/14/19 01:52; Admin Dose 1 EA; Start 03/05/19 at 02:00 Losartan Potassium (Cozaar) 50 mg QPM PO Last administered on 03/15/19 21:24; Admin Dose 50 MG; Start 03/05/19 at 21:00 Insulin Aspart (Novolog Insulin Pen) 10 unit WITH MEALS SC Last administered on 03/15/19at 17:04; Admin Dose 10 UNIT; Start 03/05/19 at 11:30 Insulin Glargine (Lantus) 30 units DAILY@2000 SC Last administered on 03/15/19 21:45; Admin Dose 30 UNITS; Start 03/05/19 at 20:00 Hydralazine HCl (Apresoline) 10 mg Q6H PRN IV SBP>160 Last administered on 03/09/19 12:40; Admin Dose 20 MG; Start 03/05/19 at 11:00 Levofloxacin (Levaquin) 250 mg DAILY@06 PO Last administered on 03/16/19 06:32; Admin Dose 250 MG; Start 03/09/19 at 06:00 Insulin Aspart (Novolog Insulin Pen) NOVOLOG *MILD* ALGORITHM WITH MEALS BEDTIME SC Last administered on 03/15/19 17:03; Admin Dose 1 UNIT; Start 03/09/19 at 17:35 Morphine Sulfate (morphine) 2 mg Q1H PRN IV SEVERE PAIN LEVEL 7-10 Last administered on 03/16/19 05:17; Admin Dose 2 MG; Start 03/10/19 at 08:00 Morphine Sulfate (morphine) 3 mg Q1H PRN IV SEVERE PAIN LEVEL 7-10; Start 03/10/19 at 08:00 Morphine Sulfate (morphine) 4 mg Q1H PRN IV SEVERE PAIN LEVEL 7-10; Start 03/10/19 at 08:00 Morphine Sulfate (morphine) 5 mg Q1H PRN IV SEVERE PAIN LEVEL 7-10; Start 03/10/19 at 08:00 Polyethylene Glycol (Miralax) 17 gm DAILY PRN PO CONSTIPATION; Start 03/13/19 at 14:30 Amlodipine Besylate (Norvasc) 10 mg DAILY PO Last administered on 03/16/19 09:51; Admin Dose 10 MG; Start 03/14/19 at 09:30 Amoxicillin (Amoxicillin) 500 mg Q8 PO Last administered on 03/16/19 13:40; Admin Dose 500 MG; Start 03/15/19 at 14:00 Levalbuterol (Xopenex Neb) 1.25 mg Q6H RESP THERAPY HHN Last administered on 03/16/19 13:26; Admin Dose 1.25 MG; Start 03/15/19 at 20:00 Levalbuterol (Xopenex Neb) 1.25 mg Q6H RESP THERAPY PRN HHN wheezing; Start 03/15/19 at 15:00 Ipratropium [place] (Atrovent 0.02% (Neb)) 0.5 mg Q6HWA RESP THERAPY HHN Last administered on 03/16/19at 13:26; Admin Dose 0.5 MG; Start 03/15/19 at 20:00 Ipratropium [place] (Atrovent 0.02% (Neb)) 0.5 mg Q6H RESP THERAPY PRN HHN shortness of breath; Start 03/15/19 at 15:00 Aspirin (Aspirin) 81 mg DAILY PO Last administered on 03/16/19at 09:50; Admin Dose 81 MG; Start 03/16/19 at 09:00 Furosemide (Lasix) 20 mg BID DIURETICS IV Last administered on 03/16/19at 06:33; Admin Dose 20 MG; Start 03/16/19 at 06:00 RADHA YOUNG MD Mar 16, 2019 14:30
--- NOTE | 2019-03-16 15:58 | PN ---
Date/Time of Note Date/Time of Note DATE: 03/16/19 TIME: 15:57 Objective Vitals Vital Signs Date Temp Pulse Resp B/P (MAP) Pulse Ox O2 O2 Flow FiO2 Time Delivery Rate 03/16/19 98.0 66 18 112/56 97 Nasal 15:09 (74) Cannula 03/16/19 3.0 13:36 03/14/19 28 17:07 Intake and Output 03/15/19 03/15/19 03/16/19 1515:00 23:00 07:00 IntakeIntake Total 300 ml 1470 ml 300 ml OutputOutput Total 2150 ml 800 ml 1700 ml BalanceBalance -1850 ml 670 ml -1400 ml Results Result Diagram: 03/16/1952803/16/19528 Medications Medications Current Medications Ondansetron HCl (Zofran Inj) 4 mg Q6H PRN IV NAUSEA AND/OR VOMITING Last administered on 02/21/19 06:47; Admin Dose 4 MG; Start 02/21/19 at 01:30 Acetaminophen (Tylenol Liquid) 650 mg Q6H PRN PO PAIN LEVEL 1-3 OR FEVER Last administered on 03/15/19 00:16; Admin Dose 650 MG; Start 02/21/19 at 01:30 Acetaminophen/ Hydrocodone Bitart ([place] (5/325)) 1 tab Q6H PRN PO PAIN LEVEL 4-6 Last administered on 03/15/19at 14:05; Admin Dose 1 TAB; Start 02/21/19 at 01:30 Atorvastatin Calcium (Lipitor) 40 mg QHS PO Last administered on 03/15/19 21:22; Admin Dose 40 MG; Start 02/21/19 at 21:00 Carvedilol (Coreg) 3.125 mg BID PO Last administered on 03/16/19 09:51; Admin Dose 3.125 MG; Start 02/21/19 at 09:00 Ferrous Sulfate (Ferrous Sulfate (Ec)) 325 mg QAM PO Last administered on 03/16/19 09:50; Admin Dose 325 MG; Start 02/21/19 at 09:00 Miscellaneous Information 1 ea NOTE XX Last administered on 03/15/19at 12:24; Admin Dose 1 EA; Start 02/21/19 at 06:00 Glucose (Glutose) 15 gm Q15M PRN PO DECREASED GLUCOSE; Start 02/21/19 at 06:00 Glucose (Glutose) 22.5 gm Q15M PRN PO DECREASED GLUCOSE; Start 02/21/19 at 06:00 Dextrose (D50w Syringe) 25 ml Q15M PRN IV DECREASED GLUCOSE; Start 02/21/19 at 06:00 Dextrose (D50w Syringe) 50 ml Q15M PRN IV DECREASED GLUCOSE; Start 02/21/19 at 06:00 Glucagon (Glucagen) 1 mg Q15M PRN IM DECREASED GLUCOSE; Start 02/21/19 at 06:00 Glucose (Glutose) 15 gm Q15M PRN BUCCAL DECREASED GLUCOSE; Start 02/21/19 at 06:00 Levothyroxine Sodium (Synthroid) 150 mcg BEFORE BREAKFAST PO Last administered on 03/16/19 06:32; Admin Dose 150 MCG; Start 02/25/19 at 07:00 Senna/Docusate Sodium (Senokot-S) 1 tab BID PRN PO constipation Last administered on 03/12/19 09:01; Admin Dose 1 TAB; Start 02/25/19 at 10:00 Bisacodyl (Dulcolax Supp) 10 mg DAILY PRN [place] Last administered on 03/15/19 06:01; Admin Dose 10 MG; Start 02/25/19 at 10:00 Budesonide (Pulmicort (Neb)) 0.5 mg BID RESP THERAPY HHN Last administered on 03/16/19 08:27; Admin Dose 0.5 MG; Start 02/26/19 at 20:00 Famotidine (Pepcid) 20 mg DAILY PO Last administered on 03/16/19 09:50; Admin Dose 20 MG; Start 02/27/19 at 09:00 Guaifenesin/ Codeine Phosphate (Robitussin Ac Liquid Cup) 5 ml Q4H PRN PO cough Last administered on 03/15/19 09:38; Admin Dose 5 ML; Start 03/01/19 at 10:30 Diagnostic Test (Pha) (Accu-Chek) 1 ea 02 XX Last administered on 03/14/19 01:52; Admin Dose 1 EA; Start 03/05/19 at 02:00 Losartan Potassium (Cozaar) 50 mg QPM PO Last administered on 03/15/19 21:24; Admin Dose 50 MG; Start 03/05/19 at 21:00 Insulin Aspart (Novolog Insulin Pen) 10 unit WITH MEALS SC Last administered on 03/15/19 17:04; Admin Dose 10 UNIT; Start 03/05/19 at 11:30 Insulin Glargine (Lantus) 30 units DAILY@2000 SC Last administered on 03/15/19 21:45; Admin Dose 30 UNITS; Start 03/05/19 at 20:00 Hydralazine HCl (Apresoline) 10 mg Q6H PRN IV SBP>160 Last administered on 03/09/19 12:40; Admin Dose 20 MG; Start 03/05/19 at 11:00 Levofloxacin (Levaquin) 250 mg DAILY@06 PO Last administered on 03/16/19 06:32; Admin Dose 250 MG; Start 03/09/19 at 06:00 Insulin Aspart (Novolog Insulin Pen) NOVOLOG *MILD* ALGORITHM WITH MEALS BEDTIME SC Last administered on 03/15/19 17:03; Admin Dose 1 UNIT; Start 03/09/19 at 17:35 Morphine Sulfate (morphine) 2 mg Q1H PRN IV SEVERE PAIN LEVEL 7-10 Last administered on 03/16/19 05:17; Admin Dose 2 MG; Start 03/10/19 at 08:00 Morphine Sulfate (morphine) 3 mg Q1H PRN IV SEVERE PAIN LEVEL 7-10; Start 03/10/19 at 08:00 Morphine Sulfate (morphine) 4 mg Q1H PRN IV SEVERE PAIN LEVEL 7-10; Start 03/10/19 at 08:00 Morphine Sulfate (morphine) 5 mg Q1H PRN IV SEVERE PAIN LEVEL 7-10; Start 03/10/19 at 08:00 Polyethylene Glycol (Miralax) 17 gm DAILY PRN PO CONSTIPATION; Start 03/13/19 at 14:30 Amlodipine Besylate (Norvasc) 10 mg DAILY PO Last administered on 03/16/19 09:51; Admin Dose 10 MG; Start 03/14/19 at 09:30 Amoxicillin (Amoxicillin) 500 mg Q8 PO Last administered on 03/16/19 13:40; Admin Dose 500 MG; Start 03/15/19 at 14:00 Levalbuterol (Xopenex Neb) 1.25 mg Q6H RESP THERAPY HHN Last administered on 6/21/19at 13:26; Admin Dose 1.25 MG; Start 03/15/19 at 20:00 Levalbuterol (Xopenex Neb) 1.25 mg Q6H RESP THERAPY PRN HHN wheezing; Start 03/15/19 at 15:00 Ipratropium [place] (Atrovent 0.02% (Neb)) 0.5 mg Q6HWA RESP THERAPY HHN Last administered on 03/16/19at 13:26; Admin Dose 0.5 MG; Start 03/15/19 at 20:00 Ipratropium [place] (Atrovent 0.02% (Neb)) 0.5 mg Q6H RESP THERAPY PRN HHN shortness of breath; Start 03/15/19 at 15:00 Aspirin (Aspirin) 81 mg DAILY PO Last administered on 03/16/19at 09:50; Admin Dose 81 MG; Start 03/16/19 at 09:00 Furosemide (Lasix) 20 mg BID DIURETICS IV Last administered on 03/16/19at 06:33; Admin Dose 20 MG; Start 03/16/19 at 06:00 VTE Prophylaxis Risk score (from Ns)>0 risk: 11 SCD applied (from Ns): No SCD contraindication: other Lines/Catheters IV Catheter Type: [place] in Place: No Assessment/Plan Hospital Course Subjective Patient complaining of some mild nausea the past 20 minutes however is doing okay only feels nauseated when coughing Objective Physical exam General: Patient is laying in bed and answers questions appropriately Mentation: Patient is alert and oriented 4, Head: Normocephalic atraumatic Eyes: EOMI, pupils reactive to light Neck: Supple, nontender, midline Respiratory: No wheezing to auscultation bilaterally Cardiovascular: regular rate, no obvious murmurs Gastrointestinal: non-tender to palpation, bowel sounds heard. Neurological: Moves all extremities spontaneously Skin: Surgical site bandaged, CDI Assessment/Plan 1. Right great toe with gas gangrene s/p I&D 02/21, status post partial hallux amputation done on March 13, 2019 - Vascular surgery on board and appreciate consultation. Patient is s/p right po pliteal to dorsalis pedis bypass 03/09 and partial hallux amputation done 03/13/19. restarted aspirin per vascular surgeon when appropriate, monitor hemoglobin closely - ID on board and will continue antibiotics at this time - pain control - Continue local wound care and dressing changes Acute hypoxic respiratory failure -possibly secondary to cardiac issues -Pulmonary edema seen on chest x-ray -Lasix IV x1 given, started on oral Lasix -Cardiology reconsulted -Titrate down O2 as tolerated, patient already doing much better after 1 dose of IV Lasix. Nausea -Monitor closely, as only lasted 20 minutes -Use as needed Zofran -We will adjust medications tomorrow if this continues. 2. Peripheral artery disease s/p R pop-Dp bypass - Vascular input appreciated 3. Acute blood loss anemia -Transfuse as needed, monitor closely 4. Poorly controlled diabetes mellitus - A1c noted - Stable - continue insulin and will adjust for better control 5. CAD s/p PCI - continue aspirin/statin/beta-blockers - Cardiology consultation appreciated. 6. HTN - stable - continue current medications 7. Hypothyroidism - Continue Synthroid - will need outpatient repeat thyroid studies in 4-6 weeks 8. Hyperlipidemia - continue statin 9. Disposition -pod recs/vascular recs appreciated -pending SNF placement BRADLEY LEONG Mar 16, 2019 15:58
[2019-03-16] MEDS: ATORVASTATIN 40 MG TAB PO SCH (20:58)
[2019-03-16] MEDS: LOSARTAN 50 MG TAB PO SCH (20:58)
[2019-03-16] MEDS: INSULIN GLARGINE [LANTus] (100 UNITS/ML) SYG SC SCH (21:04)
[2019-03-16] MEDS: HYDROCODONE/APAP (5/325) TAB PO PRN (23:07)
[2019-03-17] VITALS (10 sets, daily range): BP systolic 112–141; BP diastolic 55–88; PULSE 52–88; RESP 18–22
[2019-03-17] MEDS: ACCU-CHEK XX SCH ×2 (02:00→22:26)
[2019-03-17] MEDS: LEVALBUTEROL (NEB) 1.25 MG/0.5 ML AMP HHN SCH ×4 (02:01→19:27)
[2019-03-17] MEDS: IPRATROPIUM (NEB) 0.5 MG/2.5 ML AMP HHN PRN (02:02)
[2019-03-17] MEDS: AMOXICILLIN 500 MG CAP PO SCH ×3 (06:05→22:13)
[2019-03-17] MEDS: LEVOFLOXACIN 250 MG TAB PO SCH (06:05)
[2019-03-17] MEDS: FUROSEMIDE 20 MG INJ IV SCH ×2 (06:05→17:41)
[2019-03-17] MEDS: LEVOTHYROXINE 150 MCG TAB PO SCH (06:07)
[2019-03-17] MEDS: HYDROCODONE/APAP (5/325) TAB PO PRN ×2 (06:24→17:40)
[2019-03-17] MEDS: INSULIN ASPART [NOVOLOG] 3 ML PEN SC SCH ×7 (07:55→22:20)
[2019-03-17] MEDS: IPRATROPIUM (NEB) 0.5 MG/2.5 ML AMP HHN SCH ×3 (08:00→19:27)
[2019-03-17] MEDS: FAMOTIDINE 20 MG TAB PO SCH (08:43)
[2019-03-17] MEDS: ASPIRIN 81 MG TAB PO SCH (08:43)
[2019-03-17] MEDS: FERROUS SULFATE (EC) 325 MG TAB PO SCH (08:43)
[2019-03-17] MEDS: AMLODIPINE 10 MG TAB PO SCH (08:44)
[2019-03-17] MEDS: ENOXAPARIN 40 MG/0.4 ML SYG SC SCH (08:59)
[2019-03-17] MEDS: BUDESONIDE (NEB) 0.5MG/2ML AMP HHN SCH ×2 (09:00→19:27)
--- NOTE | 2019-03-17 09:48 | CONS ---
Assessment/Plan Cardiology NYHA: II Heart Failure Type: Acute Heart Failure Type: Diastolic Assessment/Plan Assessment/Plan (Daily) Acute decompensated diastolic congestive heart failure Gas gangrene right foot s/p debridement PAD status post lower extremity bypass CAD with history of PCI, most recently December 2017 Diabetes, uncontrolled Hypertension Dyslipidemia continue diuretic regimen Continue blood pressure control Decrease aspirin to 81 mg daily. If hemoglobin remains stable, would consider switching to Plavix given patient with peripheral arterial disease, coronary artery disease Continue statin therapy as tolerated Consultation Date/Type/Reason Admit Date/Time February 20, 2019 at 23:53 Initial Consult Date Type of Consult Cardiology Date/Time of Note DATE: 03/17/19 TIME: 09:48 24 HR Interval Summary Free Text/Dictation the patient with no cahnge Exam/Review of Systems Vital Signs Vitals Vital Signs Date Temp Pulse Resp B/P (MAP) Pulse Ox O2 O2 Flow FiO2 Time Delivery Rate 03/17/19 Nasal 3.0 08:21 Cannula 03/17/19 98.3 88 18 112/55 99 07:03 (74) 03/14/19 28 17:07 Intake and Output 03/16/19 03/16/19 03/17/19 1515:00 23:00 07:00 IntakeIntake Total 990 ml 610 ml OutputOutput Total 650 ml 4260 ml 600 ml BalanceBalance 340 ml -3650 ml -600 ml Labs Result Diagram: 03/17/19 0534 03/17/19 0534 Results 24hrs Laboratory Tests Test 03/16/19 12:05 03/16/19 17:40 03/16/19 20:39 03/17/19 05:22 Bedside Glucose 131 130 137 104 Test 03/17/19 05:34 03/17/19 08:33 White Blood Count 5.6 # Red Blood Count 2.99 L Hemoglobin 8.7 L Hematocrit 26.9 L Mean Corpuscular 90.0 Volume Mean Corpuscular 29.1 Hemoglobin Mean Corpuscular 32.3 Hemoglobin Concent Red Cell 14.1 Distribution Width Platelet Count 246 Mean Platelet Volume 9.5 Immature 0.500 H Granulocytes % Neutrophils % 59.8 Lymphocytes % 24.8 Monocytes % 11.7 H Eosinophils % 2.7 Basophils % 0.5 Nucleated Red Blood 0.0 Cells % Immature 0.030 Granulocytes # Neutrophils # 3.3 Lymphocytes # 1.4 Monocytes # 0.7 Eosinophils # 0.2 Basophils # 0.0 Nucleated Red Blood 0.0 Cells # Sodium Level 140 Potassium Level 3.9 Chloride Level 99 Carbon Dioxide Level 33 H Anion Gap 8 Blood Urea Nitrogen 27 H Creatinine 0.99 Est Glomerular Filtrat Rate mL/min Glucose Level 94 Calcium Level 8.6 Phosphorus Level 4.9 Magnesium Level 1.9 Bedside Glucose 93 Medications Medications Current Medications Ondansetron HCl (Zofran Inj) 4 mg Q6H PRN IV NAUSEA AND/OR VOMITING Last administered on 02/21/19 06:47; Admin Dose 4 MG; Start 02/21/19 at 01:30 Acetaminophen (Tylenol Liquid) 650 mg Q6H PRN PO PAIN LEVEL 1-3 OR FEVER Last administered on 03/15/19 00:16; Admin Dose 650 MG; Start 02/21/19 at 01:30 Acetaminophen/ Hydrocodone Bitart ([place] (5/325)) 1 tab Q6H PRN PO PAIN LEVEL 4-6 Last administered on 03/17/19 06:24; Admin Dose 1 TAB; Start 02/21/19 at 01:30 Atorvastatin Calcium (Lipitor) 40 mg QHS PO Last administered on 03/16/19 20:58; Admin Dose 40 MG; Start 02/21/19 at 21:00 Carvedilol (Coreg) 3.125 mg BID PO Last administered on 03/16/19 20:57; Admin Dose 3.125 MG; Start 02/21/19 at 09:00 Ferrous Sulfate (Ferrous Sulfate (Ec)) 325 mg QAM PO Last administered on 03/17/19 08:43; Admin Dose 325 MG; Start 02/21/19 at 09:00 Miscellaneous Information 1 ea NOTE XX Last administered on 03/15/19 12:24; Admin Dose 1 EA; Start 02/21/19 at 06:00 Glucose (Glutose) 15 gm Q15M PRN PO DECREASED GLUCOSE; Start 02/21/19 at 06:00 Glucose (Glutose) 22.5 gm Q15M PRN PO DECREASED GLUCOSE; Start 02/21/19 at 06:00 Dextrose (D50w Syringe) 25 ml Q15M PRN IV DECREASED GLUCOSE; Start 02/21/19 at 06:00 Dextrose (D50w Syringe) 50 ml Q15M PRN IV DECREASED GLUCOSE; Start 02/21/19 at 06:00 Glucagon (Glucagen) 1 mg Q15M PRN IM DECREASED GLUCOSE; Start 02/21/19 at 06:00 Glucose (Glutose) 15 gm Q15M PRN BUCCAL DECREASED GLUCOSE; Start 02/21/19 at 06:00 Levothyroxine Sodium (Synthroid) 150 mcg BEFORE BREAKFAST PO Last administered on 03/17/19 06:07; Admin Dose 150 MCG; Start 02/25/19 at 07:00 Senna/Docusate Sodium (Senokot-S) 1 tab BID PRN PO constipation Last administered on 03/12/19 09:01; Admin Dose 1 TAB; Start 02/25/19 at 10:00 Bisacodyl (Dulcolax Supp) 10 mg DAILY PRN [place] CONSTIPATION Last administered on 03/15/19 06:01; Admin Dose 10 MG; Start 02/25/19 at 10:00 Budesonide (Pulmicort (Neb)) 0.5 mg BID RESP THERAPY HHN Last administered on 03/16/19 19:47; Admin Dose 0.5 MG; Start 02/26/19 at 20:00 Famotidine (Pepcid) 20 mg DAILY PO Last administered on 03/17/19 08:43; Admin Dose 20 MG; Start 02/27/19 at 09:00 Guaifenesin/ Codeine Phosphate (Robitussin Ac Liquid Cup) 5 ml Q4H PRN PO cough Last administered on 03/15/19 09:38; Admin Dose 5 ML; Start 03/01/19 at 10:30 Diagnostic Test (Pha) (Accu-Chek) 1 ea 02 XX Last administered on 03/14/19 01:52; Admin Dose 1 EA; Start 03/05/19 at 02:00 Losartan Potassium (Cozaar) 50 mg QPM PO Last administered on 03/16/19 20:58; Admin Dose 50 MG; Start 03/05/19 at 21:00 Insulin Aspart (Novolog Insulin Pen) 10 unit WITH MEALS SC Last administered on 03/17/19 08:59; Admin Dose 10 UNIT; Start 03/05/19 at 11:30 Insulin Glargine (Lantus) 30 units DAILY@2000 SC Last administered on 03/16/19 21:04; Admin Dose 30 UNITS; Start 03/05/19 at 20:00 Hydralazine HCl (Apresoline) 10 mg Q6H PRN IV SBP>160 Last administered on 03/09/19at 12:40; Admin Dose 20 MG; Start 03/05/19 at 11:00 Levofloxacin (Levaquin) 250 mg DAILY@06 PO Last administered on 03/17/19at 06:05; Admin Dose 250 MG; Start 03/09/19 at 06:00 Insulin Aspart (Novolog Insulin Pen) NOVOLOG *MILD* ALGORITHM WITH MEALS BEDTIME SC Last administered on 03/15/19at 17:03; Admin Dose 1 UNIT; Start 03/09/19 at 17:35 Morphine Sulfate (morphine) 2 mg Q1H PRN IV SEVERE PAIN LEVEL 7-10 Last administered on 03/16/19at 05:17; Admin Dose 2 MG; Start 03/10/19 at 08:00 Morphine Sulfate (morphine) 3 mg Q1H PRN IV SEVERE PAIN LEVEL 7-10; Start 03/10/19 at 08:00 Morphine Sulfate (morphine) 4 mg Q1H PRN IV SEVERE PAIN LEVEL 7-10; Start 03/10/19 at 08:00 Morphine Sulfate (morphine) 5 mg Q1H PRN IV SEVERE PAIN LEVEL 7-10; Start 03/10/19 at 08:00 Polyethylene Glycol (Miralax) 17 gm DAILY PRN PO CONSTIPATION; Start 03/13/19 at 14:30 Amlodipine Besylate (Norvasc) 10 mg DAILY PO Last administered on 03/17/19at 08:44; Admin Dose 10 MG; Start 03/14/19 at 09:30 Amoxicillin (Amoxicillin) 500 mg Q8 PO Last administered on 03/17/19at 06:05; Admin Dose 500 MG; Start 03/15/19 at 14:00 Levalbuterol (Xopenex Neb) 1.25 mg Q6H RESP THERAPY HHN Last administered on 03/17/19at 02:01; Admin Dose 1.25 MG; Start 03/15/19 at 20:00 Levalbuterol (Xopenex Neb) 1.25 mg Q6H RESP THERAPY PRN HHN wheezing; Start 03/15/19 at 15:00 Ipratropium [place] (Atrovent 0.02% (Neb)) 0.5 mg Q6HWA RESP THERAPY HHN Last administered on 03/16/19 19:48; Admin Dose 0.5 MG; Start 03/15/19 at 20:00 Ipratropium [place] (Atrovent 0.02% (Neb)) 0.5 mg Q6H RESP THERAPY PRN HHN shortness of breath Last administered on 03/17/19 02:02; Admin Dose 0.5 MG; Start 03/15/19 at 15:00 Aspirin (Aspirin) 81 mg DAILY PO Last administered on 03/17/19 08:43; Admin Dose 81 MG; Start 03/16/19 at 09:00 Furosemide (Lasix) 20 mg BID DIURETICS IV Last administered on 03/17/19 06:05; Admin Dose 20 MG; Start 03/16/19 at 06:00 Enoxaparin Sodium (Lovenox) 40 mg DAILY SC Last administered on 03/17/19 08:59; Admin Dose 40 MG; Start 03/17/19 at 09:00 RADHA YOUNG MD Mar 17, 2019 09:48
--- NOTE | 2019-03-17 11:04 | CONS ---
Assessment/Plan Assessment/Plan Hospital Course (Demo Recall) ID PROGRESS NOTE CURRENT ABX: DAY # => Ampicillin + Levaquin s/p Zyvox, Azith, Zosyn 03/17/19 0534 03/17/19 0534 24H INTERVAL SUMMARY * POD #4 -> s/p right partial hallux amputation 03/13/19 * Awake, doing well on [place] for pain -- no new issues, nor complaints, VSS, no fevers * Indwelling: Right IJ triple-lumen catheter MICRO/OTHER * 02/20/19 BCX (-) * 02/21/19 Wound Cx (+) WOUND CULTURE Final Organism 1 STAPHYLOCOCCUS AUREUS QUANTITY 1+ Organism 2 ENTEROCOCCUS SPECIES QUANTITY 1+ S AUREUS ENT SPS M.I.C. RX M.I.C. RX --------- --- --------- --- AMPICILLIN <=2 S CEFAZOLIN S CIPROFLOXACIN <=0.5 S CLINDAMYCIN <=0.25 S DOXYCYCLINE S ERYTHROMYCIN <=0.25 S LEVOFLOXACIN 0.25 S OXACILLIN 0.5 S PENICILLIN-G >=0.5 R 2 S RIFAMPIN <=0.5 S VANCOMYCIN <=0.5 S 2 S TRIMETHOPRIM/SULFAMETHOXAZOLE <=10 S PHYSICAL EXAMINATION: GENERAL: VSS, NAD HEENT: AT, NC, anicteric, NECK: Supple, CHEST: Equal chest rise bilaterally, without dyspnea on observation HEART: Pulse RRR ABDOMEN: Soft : deferred EXTREMITIES: Warm, dry -- [place] DSG C/D/I SKIN: No rash, no diaphoresis ID ASSESSMENT 74 yo F admit with: 1. Right foot cellulitis with toe gangrene, s/p right partial hallux amputation 03/13/19 2. Peripheral arterial disease status post abdominal aortogram with right popliteal artery angioplasty 02/23/19, s/p bypass graft 03/09/19 3. Diabetes 4. CHF 4. Possible superimposed PNA ABX ALLERGIES: None to ABX INVASIVES: PIV CURRENT ABX: DAY # > Ampicillin + Levaquin ID RECOMMENDATIONS/PLAN: 1. Continue current ABX x 4 more days per ID [employer] colleague note Consultation Date/Type/Reason Admit Date/Time February 20, 2019 at 23:53 Initial Consult Date Date/Time of Note DATE: 03/17/19 TIME: 11:04 Exam/Review of Systems Exam Vitals Vital Signs Date Temp Pulse Resp B/P (MAP) Pulse Ox O2 O2 Flow FiO2 Time Delivery Rate 03/17/19 Nasal 3.0 08:21 Cannula 03/17/19 52 08:00 03/17/19 98.3 18 112/55 99 07:03 (74) 03/14/19 28 17:07 Intake and Output 03/16/19 03/16/19 03/17/19 1515:00 23:00 07:00 IntakeIntake Total 990 ml 610 ml OutputOutput Total 650 ml 4260 ml 600 ml BalanceBalance 340 ml -3650 ml -600 ml Results Result Diagram: 03/17/19 0534 03/17/19 0534 Results 24hrs Laboratory Tests Test 03/16/19 12:05 03/16/19 17:40 03/16/19 20:39 03/17/19 05:22 Bedside Glucose 131 130 137 104 Test 03/17/19 05:34 03/17/19 08:33 White Blood Count 5.6 # Red Blood Count 2.99 L Hemoglobin 8.7 L Hematocrit 26.9 L Mean Corpuscular 90.0 Volume Mean Corpuscular 29.1 Hemoglobin Mean Corpuscular 32.3 Hemoglobin Concent Red Cell 14.1 Distribution Width Platelet Count 246 Mean Platelet Volume 9.5 Immature 0.500 H Granulocytes % Neutrophils % 59.8 Lymphocytes % 24.8 Monocytes % 11.7 H Eosinophils % 2.7 Basophils % 0.5 Nucleated Red Blood 0.0 Cells % Immature 0.030 Granulocytes # Neutrophils # 3.3 Lymphocytes # 1.4 Monocytes # 0.7 Eosinophils # 0.2 Basophils # 0.0 Nucleated Red Blood 0.0 Cells # Sodium Level 140 Potassium Level 3.9 Chloride Level 99 Carbon Dioxide Level 33 H Anion Gap 8 Blood Urea Nitrogen 27 H Creatinine 0.99 Est Glomerular Filtrat Rate mL/min Glucose Level 94 Calcium Level 8.6 Phosphorus Level 4.9 Magnesium Level 1.9 Bedside Glucose 93 Medications Medication Current Medications Ondansetron HCl (Zofran Inj) 4 mg Q6H PRN IV NAUSEA AND/OR VOMITING Last administered on 02/21/19at 06:47; Admin Dose 4 MG; Start 02/21/19 at 01:30 Acetaminophen (Tylenol Liquid) 650 mg Q6H PRN PO PAIN LEVEL 1-3 OR FEVER Last administered on 03/15/19 00:16; Admin Dose 650 MG; Start 02/21/19 at 01:30 Acetaminophen/ Hydrocodone Bitart ([place] (5/325)) 1 tab Q6H PRN PO PAIN LEVEL 4-6 Last administered on 03/17/19 06:24; Admin Dose 1 TAB; Start 02/21/19 at 01:30 Atorvastatin Calcium (Lipitor) 40 mg QHS PO Last administered on 03/16/19 20:58; Admin Dose 40 MG; Start 02/21/19 at 21:00 Carvedilol (Coreg) 3.125 mg BID PO Last administered on 03/16/19 20:57; Admin Dose 3.125 MG; Start 02/21/19 at 09:00 Ferrous Sulfate (Ferrous Sulfate (Ec)) 325 mg QAM PO Last administered on 08:43; Admin Dose 325 MG; Start 02/21/19 at 09:00 Miscellaneous Information 1 ea NOTE XX Last administered on 03/15/19at 12:24; Admin Dose 1 EA; Start 02/21/19 at 06:00 Glucose (Glutose) 15 gm Q15M PRN PO DECREASED GLUCOSE; Start 02/21/19 at 06:00 Glucose (Glutose) 22.5 gm Q15M PRN PO DECREASED GLUCOSE; Start 02/21/19 at 06:00 Dextrose (D50w Syringe) 25 ml Q15M PRN IV DECREASED GLUCOSE; Start 02/21/19 at 06:00 Dextrose (D50w Syringe) 50 ml Q15M PRN IV DECREASED GLUCOSE; Start 02/21/19 at 06:00 Glucagon (Glucagen) 1 mg Q15M PRN IM DECREASED GLUCOSE; Start 02/21/19 at 06:00 Glucose (Glutose) 15 gm Q15M PRN BUCCAL DECREASED GLUCOSE; Start 02/21/19 at 06:00 Levothyroxine Sodium (Synthroid) 150 mcg BEFORE BREAKFAST PO Last administered on 03/17/19 06:07; Admin Dose 150 MCG; Start 02/25/19 at 07:00 Senna/Docusate Sodium (Senokot-S) 1 tab BID PRN PO constipation Last administe red on 03/12/19at 09:01; Admin Dose 1 TAB; Start 02/25/19 at 10:00 Bisacodyl (Dulcolax Supp) 10 mg DAILY PRN [place] CONSTIPATION Last administered on 03/15/19 06:01; Admin Dose 10 MG; Start 02/25/19 at 10:00 Budesonide (Pulmicort (Neb)) 0.5 mg BID RESP THERAPY HHN Last administered on 03/16/19 19:47; Admin Dose 0.5 MG; Start 02/26/19 at 20:00 Famotidine (Pepcid) 20 mg DAILY PO Last administered on 03/17/19 08:43; Admin Dose 20 MG; Start 02/27/19 at 09:00 Guaifenesin/ Codeine Phosphate (Robitussin Ac Liquid Cup) 5 ml Q4H PRN PO cough Last administered on 03/15/19 09:38; Admin Dose 5 ML; Start 03/01/19 at 10:30 Diagnostic Test (Pha) (Accu-Chek) 1 ea 02 XX Last administered on 03/14/19 01:52; Admin Dose 1 EA; Start 03/05/19 at 02:00 Losartan Potassium (Cozaar) 50 mg QPM PO Last administered on 03/16/19 20:58; Admin Dose 50 MG; Start 03/05/19 at 21:00 Insulin Aspart (Novolog Insulin Pen) 10 unit WITH MEALS SC Last administered on 03/17/19 08:59; Admin Dose 10 UNIT; Start 03/05/19 at 11:30 Insulin Glargine (Lantus) 30 units DAILY@2000 SC Last administered on 03/16/19 21:04; Admin Dose 30 UNITS; Start 03/05/19 at 20:00 Hydralazine HCl (Apresoline) 10 mg Q6H PRN IV SBP>160 Last administered on 03/09/19 12:40; Admin Dose 20 MG; Start 03/05/19 at 11:00 Levofloxacin (Levaquin) 250 mg DAILY@06 PO Last administered on 03/17/19 06:05; Admin Dose 250 MG; Start 03/09/19 at 06:00 Insulin Aspart (Novolog Insulin Pen) NOVOLOG *MILD* ALGORITHM WITH MEALS BEDTIME SC Last administered on 03/15/19 17:03; Admin Dose 1 UNIT; Start 03/09/19 at 17:35 Morphine Sulfate (morphine) 2 mg Q1H PRN IV SEVERE PAIN LEVEL 7-10 Last administered on 03/16/19 05:17; Admin Dose 2 MG; Start 03/10/19 at 08:00 Morphine Sulfate (morphine) 3 mg Q1H PRN IV SEVERE PAIN LEVEL 7-10; Start 03/10/19 at 08:00 Morphine Sulfate (morphine) 4 mg Q1H PRN IV SEVERE PAIN LEVEL 7-10; Start 03/10/19 at 08:00 Morphine Sulfate (morphine) 5 mg Q1H PRN IV SEVERE PAIN LEVEL 7-10; Start 03/10/19 at 08:00 Polyethylene Glycol (Miralax) 17 gm DAILY PRN PO CONSTIPATION; Start 03/13/19 at 14:30 Amlodipine Besylate (Norvasc) 10 mg DAILY PO Last administered on 03/17/19at 08:44; Admin Dose 10 MG; Start 03/14/19 at 09:30 Amoxicillin (Amoxicillin) 500 mg Q8 PO Last administered on 03/17/19 06:05; Admin Dose 500 MG; Start 03/15/19 at 14:00 Levalbuterol (Xopenex Neb) 1.25 mg Q6H RESP THERAPY HHN Last administered on 03/17/19 02:01; Admin Dose 1.25 MG; Start 03/15/19 at 20:00 Levalbuterol (Xopenex Neb) 1.25 mg Q6H RESP THERAPY PRN HHN wheezing; Start 03/15/19 at 15:00 Ipratropium [place] (Atrovent 0.02% (Neb)) 0.5 mg Q6HWA RESP THERAPY HHN Last administered on 03/16/19at 19:48; Admin Dose 0.5 MG; Start 03/15/19 at 20:00 Ipratropium [place] (Atrovent 0.02% (Neb)) 0.5 mg Q6H RESP THERAPY PRN HHN shortness of breath Last administered on 03/17/19at 02:02; Admin Dose 0.5 MG; Start 03/15/19 at 15:00 Aspirin (Aspirin) 81 mg DAILY PO Last administered on 03/17/19 08:43; Admin Dose 81 MG; Start 03/16/19 at 09:00 Furosemide (Lasix) 20 mg BID DIURETICS IV Last administered on 03/17/19at 06:05; Admin Dose 20 MG; Start 03/16/19 at 06:00 Enoxaparin Sodium (Lovenox) 40 mg DAILY SC Last administered on 03/17/19at 08:59; Admin Dose 40 MG; Start 03/17/19 at 09:00 RADHA SNEED NP Mar 17, 2019 11:04
--- NOTE | 2019-03-17 12:54 | PN ---
Date/Time of Note Date/Time of Note DATE: 03/17/19 TIME: 12:53 Objective Vitals Vital Signs Date Temp Pulse Resp B/P (MAP) Pulse Ox O2 O2 Flow FiO2 Time Delivery Rate 03/17/19 98.4 66 22 119/58 98 Nasal 11:11 (78) Cannula 03/17/19 3.0 08:21 03/14/19 28 17:07 Intake and Output 03/16/19 03/16/19 03/17/19 1515:00 23:00 07:00 IntakeIntake Total 990 ml 610 ml OutputOutput Total 650 ml 4260 ml 600 ml BalanceBalance 340 ml -3650 ml -600 ml Results Result Diagram: 03/17/19 0534 03/17/1934 Medications Medications Current Medications Ondansetron HCl (Zofran Inj) 4 mg Q6H PRN IV NAUSEA AND/OR VOMITING Last administered on 02/21/19 06:47; Admin Dose 4 MG; Start 02/21/19 at 01:30 Acetaminophen (Tylenol Liquid) 650 mg Q6H PRN PO PAIN LEVEL 1-3 OR FEVER Last administered on 03/15/19at 00:16; Admin Dose 650 MG; Start 02/21/19 at 01:30 Acetaminophen/ Hydrocodone Bitart ([place] (5/325)) 1 tab Q6H PRN PO PAIN LEVEL 4-6 Last administered on 03/17/19 06:24; Admin Dose 1 TAB; Start 02/21/19 at 01:30 Atorvastatin Calcium (Lipitor) 40 mg QHS PO Last administered on 03/16/19 20:58; Admin Dose 40 MG; Start 02/21/19 at 21:00 Carvedilol (Coreg) 3.125 mg BID PO Last administered on 03/16/19 20:57; Admin Dose 3.125 MG; Start 02/21/19 at 09:00 Ferrous Sulfate (Ferrous Sulfate (Ec)) 325 mg QAM PO Last administered on 03/17/19 08:43; Admin Dose 325 MG; Start 02/21/19 at 09:00 Miscellaneous Information 1 ea NOTE XX Last administered on 03/15/19at 12:24; Admin Dose 1 EA; Start 02/21/19 at 06:00 Glucose (Glutose) 15 gm Q15M PRN PO DECREASED GLUCOSE; Start 02/21/19 at 06:00 Glucose (Glutose) 22.5 gm Q15M PRN PO DECREASED GLUCOSE; Start 02/21/19 at 06:00 Dextrose (D50w Syringe) 25 ml Q15M PRN IV DECREASED GLUCOSE; Start 02/21/19 at 06:00 Dextrose (D50w Syringe) 50 ml Q15M PRN IV DECREASED GLUCOSE; Start 02/21/19 at 06:00 Glucagon (Glucagen) 1 mg Q15M PRN IM DECREASED GLUCOSE; Start 02/21/19 at 06:00 Glucose (Glutose) 15 gm Q15M PRN BUCCAL DECREASED GLUCOSE; Start 02/21/19 at 06 :00 Levothyroxine Sodium (Synthroid) 150 mcg BEFORE BREAKFAST PO Last administered on 03/17/19 06:07; Admin Dose 150 MCG; Start 02/25/19 at 07:00 Senna/Docusate Sodium (Senokot-S) 1 tab BID PRN PO constipation Last administered on 03/12/19 09:01; Admin Dose 1 TAB; Start 02/25/19 at 10:00 Bisacodyl (Dulcolax Supp) 10 mg DAILY PRN [place] CONSTIPATION Last administered on 03/15/19 06:01; Admin Dose 10 MG; Start 02/25/19 at 10:00 Budesonide (Pulmicort (Neb)) 0.5 mg BID RESP THERAPY HHN Last administered on 03/16/19 19:47; Admin Dose 0.5 MG; Start 02/26/19 at 20:00 Famotidine (Pepcid) 20 mg DAILY PO Last administered on 03/17/19 08:43; Admin Dose 20 MG; Start 02/27/19 at 09:00 Guaifenesin/ Codeine Phosphate (Robitussin Ac Liquid Cup) 5 ml Q4H PRN PO cough Last administered on 03/15/19 09:38; Admin Dose 5 ML; Start 03/01/19 at 10:30 Diagnostic Test (Pha) (Accu-Chek) 1 ea 02 XX Last administered on 03/14/19 01:52; Admin Dose 1 EA; Start 03/05/19 at 02:00 Losartan Potassium (Cozaar) 50 mg QPM PO Last administered on 03/16/19 20:58; Admin Dose 50 MG; Start 03/05/19 at 21:00 Insulin Aspart (Novolog Insulin Pen) 10 unit WITH MEALS SC Last administered on 03/17/19 08:59; Admin Dose 10 UNIT; Start 03/05/19 at 11:30 Insulin Glargine (Lantus) 30 units DAILY@2000 SC Last administered on 03/16/19 21:04; Admin Dose 30 UNITS; Start 03/05/19 at 20:00 Hydralazine HCl (Apresoline) 10 mg Q6H PRN IV SBP>160 Last administered on 03/09/19at 12:40; Admin Dose 20 MG; Start 03/05/19 at 11:00 Levofloxacin (Levaquin) 250 mg DAILY@06 PO Last administered on 03/17/19 06:05; Admin Dose 250 MG; Start 03/09/19 at 06:00 Insulin Aspart (Novolog Insulin Pen) NOVOLOG *MILD* ALGORITHM WITH MEALS BEDTIME SC Last administered on 03/15/19 17:03; Admin Dose 1 UNIT; Start 03/09/19 at 17:35 Morphine Sulfate (morphine) 2 mg Q1H PRN IV SEVERE PAIN LEVEL 7-10 Last administered on 03/16/19 05:17; Admin Dose 2 MG; Start 03/10/19 at 08:00 Morphine Sulfate (morphine) 3 mg Q1H PRN IV SEVERE PAIN LEVEL 7-10; Start 03/10/19 at 08:00 Morphine Sulfate (morphine) 4 mg Q1H PRN IV SEVERE PAIN LEVEL 7-10; Start 03/10/19 at 08:00 Morphine Sulfate (morphine) 5 mg Q1H PRN IV SEVERE PAIN LEVEL 7-10; Start 03/10/19 at 08:00 Polyethylene Glycol (Miralax) 17 gm DAILY PRN PO CONSTIPATION; Start 03/13/19 at 14:30 Amlodipine Besylate (Norvasc) 10 mg DAILY PO Last administered on 03/17/19at 08:44; Admin Dose 10 MG; Start 03/14/19 at 09:30 Amoxicillin (Amoxicillin) 500 mg Q8 PO Last administered on 03/17/19 06:05; Admin Dose 500 MG; Start 03/15/19 at 14:00 Levalbuterol (Xopenex Neb) 1.25 mg Q6H RESP THERAPY HHN Last administered on 03/17/19at 02:01; Admin Dose 1.25 MG; Start 03/15/19 at 20:00 Levalbuterol (Xopenex Neb) 1.25 mg Q6H RESP THERAPY PRN HHN wheezing; Start 03/15/19 at 15:00 Ipratropium [place] (Atrovent 0.02% (Neb)) 0.5 mg Q6HWA RESP THERAPY HHN Last administered on 03/16/19at 19:48; Admin Dose 0.5 MG; Start 03/15/19 at 20:00 Ipratropium [place] (Atrovent 0.02% (Neb)) 0.5 mg Q6H RESP THERAPY PRN HHN shortness of breath Last administered on 03/17/19at 02:02; Admin Dose 0.5 MG; S tart 03/15/19 at 15:00 Aspirin (Aspirin) 81 mg DAILY PO Last administered on 03/17/19at 08:43; Admin Dose 81 MG; Start 03/16/19 at 09:00 Furosemide (Lasix) 20 mg BID DIURETICS IV Last administered on 03/17/19at 06:05; Admin Dose 20 MG; Start 03/16/19 at 06:00 Enoxaparin Sodium (Lovenox) 40 mg DAILY SC Last administered on 03/17/19at 08:59; Admin Dose 40 MG; Start 03/17/19 at 09:00 VTE Prophylaxis Risk score (from Nsg)>0 risk: 11 SCD applied (from Ns): No SCD contraindication: other Lines/Catheters IV Catheter Type: Goodman in Place: No Assessment/Plan Hospital Course Subjective Patient doing well, no more nausea Objective Physical exam General: Patient is laying in bed and answers questions appropriately Mentation: Patient is alert and oriented 4, Head: Normocephalic atraumatic Eyes: EOMI, pupils reactive to light Neck: Supple, nontender, midline Respiratory: No wheezing to auscultation bilaterally Cardiovascular: regular rate, no obvious murmurs Gastrointestinal: non-tender to palpation, bowel sounds heard. Neurological: Moves all extremities spontaneously Skin: Surgical site bandaged, CDI Assessment/Plan 1. Right great toe with gas gangrene s/p I&D 02/21, status post partial hallux amputation done on March 13, 2019 - Vascular surgery on board and appreciate consultation. Patient is s/p right popliteal to dorsalis pedis bypass 03/09 and partial hallux amputation done 03/13/19. restarted aspirin per vascular surgeon when appropriate, monitor hemoglobin closely - ID on board and will continue antibiotics at this time - pain control - Continue local wound care and dressing changes Acute hypoxic respiratory failure -possibly secondary to cardiac issues -Pulmonary edema seen on chest x-ray -Lasix IV x1 given, started on oral Lasix -Cardiology reconsulted -Titrate down O2 as tolerated, patient already doing much better after 1 dose of IV Lasix. Nausea -Monitor closely, as only lasted 20 minutes -Use as needed Zofran -We will adjust medications tomorrow if this continues. 2. Peripheral artery disease s/p R pop-Dp bypass - Vascular input appreciated 3. Acute blood loss anemia -Transfuse as needed, monitor closely 4. Poorly controlled diabetes mellitus - A1c noted - Stable - continue insulin and will adjust for better control 5. CAD s/p PCI - continue aspirin/statin/beta-blockers - Cardiology consultation appreciated. 6. HTN - stable - continue current medications 7. Hypothyroidism - Continue Synthroid - will need outpatient repeat thyroid studies in 4-6 weeks 8. Hyperlipidemia - continue statin 9. Disposition -pod recs/vascular recs appreciated -pending SNF placement BRADLEY LEONG Mar 17, 2019 12:54
[2019-03-17] MEDS: ATORVASTATIN 40 MG TAB PO SCH (22:13)
[2019-03-17] MEDS: LOSARTAN 50 MG TAB PO SCH (22:13)
[2019-03-17] MEDS: INSULIN GLARGINE [LANTus] (100 UNITS/ML) SYG SC SCH (22:24)
[2019-03-18] VITALS (10 sets, daily range): BP systolic 118–134; BP diastolic 56–63; PULSE 59–69; RESP 16–20
[2019-03-18] MEDS: LEVALBUTEROL (NEB) 1.25 MG/0.5 ML AMP HHN SCH ×4 (02:05→19:55)
[2019-03-18] MEDS: IPRATROPIUM (NEB) 0.5 MG/2.5 ML AMP HHN PRN (02:05)
[2019-03-18] MEDS: FUROSEMIDE 20 MG INJ IV SCH ×2 (05:58→17:18)
[2019-03-18] MEDS: LEVOTHYROXINE 150 MCG TAB PO SCH (06:00)
[2019-03-18] MEDS: AMOXICILLIN 500 MG CAP PO SCH ×3 (06:01→21:20)
[2019-03-18] MEDS: LEVOFLOXACIN 250 MG TAB PO SCH (06:01)
[2019-03-18] MEDS: HYDROCODONE/APAP (5/325) TAB PO PRN (07:13)
[2019-03-18] MEDS: BUDESONIDE (NEB) 0.5MG/2ML AMP HHN SCH ×3 (07:45→19:56)
[2019-03-18] MEDS: IPRATROPIUM (NEB) 0.5 MG/2.5 ML AMP HHN SCH ×3 (07:45→19:55)
[2019-03-18] MEDS: INSULIN ASPART [NOVOLOG] 3 ML PEN SC SCH ×7 (07:55→21:00)
[2019-03-18] MEDS: ASPIRIN 81 MG TAB PO SCH (08:15)
[2019-03-18] MEDS: FAMOTIDINE 20 MG TAB PO SCH (08:15)
[2019-03-18] MEDS: FERROUS SULFATE (EC) 325 MG TAB PO SCH (08:15)
[2019-03-18] MEDS: AMLODIPINE 10 MG TAB PO SCH (08:15)
[2019-03-18] MEDS: ENOXAPARIN 40 MG/0.4 ML SYG SC SCH (08:28)
--- NOTE | 2019-03-18 10:53 | PN ---
Date/Time of Note Date/Time of Note DATE: 03/18/19 TIME: 10:52 Objective Vitals Vital Signs Date Temp Pulse Resp B/P (MAP) Pulse Ox O2 O2 Flow FiO2 Time Delivery Rate 03/18/19 Nasal 3.0 08:17 Cannula 03/18/19 62 08:00 03/18/19 98.0 20 128/63 98 07:51 (84) 03/14/19 28 17:07 Intake and Output 03/17/19 03/17/19 03/18/19 1515:00 23:00 07:00 IntakeIntake Total 790 ml 240 ml 360 ml OutputOutput Total 1750 ml 380 ml 1500 ml BalanceBalance -960 ml -140 ml -1140 ml Results Result Diagram: 03/18/19 0555 [birth year]1955 Medications Medications Current Medications Ondansetron HCl (Zofran Inj) 4 mg Q6H PRN IV NAUSEA AND/OR VOMITING Last administered on 02/21/19at 06:47; Admin Dose 4 MG; Start 02/21/19 at 01:30 Acetaminophen (Tylenol Liquid) 650 mg Q6H PRN PO PAIN LEVEL 1-3 OR FEVER Last administered on 03/15/19at 00:16; Admin Dose 650 MG; Start 02/21/19 at 01:30 Atorvastatin Calcium (Lipitor) 40 mg QHS PO Last administered on 03/17/19at 22:13; Admin Dose 40 MG; Start 02/21/19 at 21:00 Carvedilol (Coreg) 3.125 mg BID PO Last administered on 03/18/19at 01:33; Admin Dose 3.125 MG; Start 02/21/19 at 09:00 Ferrous Sulfate (Ferrous Sulfate (Ec)) 325 mg QAM PO Last administered on at 08:15; Admin Dose 325 MG; Start 02/21/19 at 09:00 Miscellaneous Information 1 ea NOTE XX Last administered on 03/15/19at 12:24; Admin Dose 1 EA; Start 02/21/19 at 06:00 Glucose (Glutose) 15 gm Q15M PRN PO DECREASED GLUCOSE; Start 02/21/19 at 06:00 Glucose (Glutose) 22.5 gm Q15M PRN PO DECREASED GLUCOSE; Start 02/21/19 at 06:00 Dextrose (D50w Syringe) 25 ml Q15M PRN IV DECREASED GLUCOSE; Start 02/21/19 at 06:00 Dextrose (D50w Syringe) 50 ml Q15M PRN IV DECREASED GLUCOSE; Start 02/21/19 at 06:00 Glucagon (Glucagen) 1 mg Q15M PRN IM DECREASED GLUCOSE; Start 02/21/19 at 06:00 Glucose (Glutose) 15 gm Q15M PRN BUCCAL DECREASED GLUCOSE; Start 02/21/19 at 06:00 Levothyroxine Sodium (Synthroid) 150 mcg BEFORE BREAKFAST PO Last administered on 03/18/19 06:00; Admin Dose 150 MCG; Start 02/25/19 at 07:00 Senna/Docusate Sodium (Senokot-S) 1 tab BID PRN PO constipation Last administered on 03/12/19 09:01; Admin Dose 1 TAB; Start 02/25/19 at 10:00 Bisacodyl (Dulcolax Supp) 10 mg DAILY PRN [place] CONSTIPATION Last administered on 03/15/19 06:01; Admin Dose 10 MG; Start 02/25/19 at 10:00 Budesonide (Pulmicort (Neb)) 0.5 mg BID RESP THERAPY HHN Last administered on 03/17/19 19:27; Admin Dose 0.5 MG; Start 02/26/19 at 20:00 Famotidine (Pepcid) 20 mg DAILY PO Last administered on 03/18/19 08:15; Admin Dose 20 MG; Start 02/27/19 at 09:00 Guaifenesin/ Codeine Phosphate (Robitussin Ac Liquid Cup) 5 ml Q4H PRN PO cough Last administered on 03/15/19 09:38; Admin Dose 5 ML; Start 03/01/19 at 10:30 Diagnostic Test (Pha) (Accu-Chek) 1 ea 02 XX Last administered on 03/14/19 01:52; Admin Dose 1 EA; Start 03/05/19 at 02:00 Losartan Potassium (Cozaar) 50 mg QPM PO Last administered on 03/17/19 22:13; Admin Dose 50 MG; Start 03/05/19 at 21:00 Insulin Aspart (Novolog Insulin Pen) 10 unit WITH MEALS SC Last administered on 03/17/19 08:59; Admin Dose 10 UNIT; Start 03/05/19 at 11:30 Insulin Glargine (Lantus) 30 units DAILY@2000 SC Last administered on 03/17/19 22:24; Admin Dose 30 UNITS; Start 03/05/19 at 20:00 Hydralazine HCl (Apresoline) 10 mg Q6H PRN IV SBP>160 Last administered on 03/09/19 12:40; Admin Dose 20 MG; Start 03/05/19 at 11:00 Levofloxacin (Levaquin) 250 mg DAILY@06 PO Last administered on 03/18/19 06:01; Admin Dose 250 MG; Start 03/09/19 at 06:00 Insulin Aspart (Novolog Insulin Pen) NOVOLOG *MILD* ALGORITHM WITH MEALS BEDTIME SC Last administered on 03/15/19 17:03; Admin Dose 1 UNIT; Start 03/09/19 at 17:35 Polyethylene Glycol (Miralax) 17 gm DAILY PRN PO CONSTIPATION; Start 03/13/19 at 14:30 Amlodipine Besylate (Norvasc) 10 mg DAILY PO Last administered on 03/18/19 08:15; Admin Dose 10 MG; Start 03/14/19 at 09:30 Amoxicillin (Amoxicillin) 500 mg Q8 PO Last administered on 03/18/19 06:01; Admin Dose 500 MG; Start 03/15/19 at 14:00 Levalbuterol (Xopenex Neb) 1.25 mg Q6H RESP THERAPY HHN Last administered on 03/18/19 07:45; Admin Dose 1.25 MG; Start 03/15/19 at 20:00 Levalbuterol (Xopenex Neb) 1.25 mg Q6H RESP THERAPY PRN HHN wheezing; Start 03/15/19 at 15:00 Ipratropium [place] (Atrovent 0.02% (Neb)) 0.5 mg Q6HWA RESP THERAPY HHN Last administered on 03/18/19 07:45; Admin Dose 0.5 MG; Start 03/15/19 at 20:00 Ipratropium [place] (Atrovent 0.02% (Neb)) 0.5 mg Q6H RESP THERAPY PRN HHN shortness of breath Last administered on 03/18/19 02:05; Admin Dose 0.5 MG; Start 03/15/19 at 15:00 Aspirin (Aspirin) 81 mg DAILY PO Last administered on 03/18/19at 08:15; Admin Dose 81 MG; Start 03/16/19 at 09:00 Furosemide (Lasix) 20 mg BID DIURETICS IV Last administered on 03/18/19at 05:58; Admin Dose 20 MG; Start 03/16/19 at 06:00 Enoxaparin Sodium (Lovenox) 40 mg DAILY SC Last administered on 03/18/19at 08:28; Admin Dose 40 MG; Start 03/17/19 at 09:00 Oxycodone/ Acetaminophen (Percocet (5/ 325)) 1 tab Q4H PRN PO pain 7-10; Start 03/18/19 at 11:00; Status UNV Acetaminophen/ Hydrocodone Bitart ([place] (10/325)) 1 tab Q4H PRN PO MODERATE PAIN LEVEL 4-6; Start 03/18/19 at 11:00; Status UNV Gabapentin (Neurontin) 300 mg TID PO ; Start 03/18/19 at 11:00; Status UNV VTE Prophylaxis Risk score (from Ns)>0 risk: 12 SCD applied (from Ns): No SCD contraindication: other Lines/Catheters IV Catheter Type: Goodman in Place: No Assessment/Plan Hospital Course Subjective Patient doing well, has some tingling pain in her R leg Objective Physical exam General: Patient is laying in bed and answers questions appropriately Mentation: Patient is alert and oriented 4, Head: Normocephalic atraumatic Eyes: EOMI, pupils reactive to light Neck: Supple, nontender, midline Respiratory: No wheezing to auscultation bilaterally Cardiovascular: regular rate, no obvious murmurs Gastrointestinal: non-tender to palpation, bowel sounds heard. Neurological: Moves all extremities spontaneously Skin: Surgical site bandaged, CDI Assessment/Plan 1. Right great toe with gas gangrene s/p I&D 02/21, status post partial hallux amputation done on March 13, 2019 - Vascular surgery on board and appreciate consultation. Patient is s/p right popliteal to dorsalis pedis bypass 03/09 and partial hallux amputation done 03/13/19. restarted aspirin per vascular surgeon when appropriate, monitor hemoglobin closely - ID on board and will continue antibiotics at this time - pain control - Continue local wound care and dressing changes Acute hypoxic respiratory failure -possibly secondary to cardiac issues -Pulmonary edema seen on chest x-ray -Lasix IV x1 given, started on oral Lasix -Cardiology reconsulted -Titrate down O2 as tolerated, patient already doing much better after 1 dose of IV Lasix. Nausea -Monitor closely, as only lasted 20 minutes -Use as needed Zofran -We will adjust medications tomorrow if this continues. 2. Peripheral artery disease s/p R pop-Dp bypass - Vascular input appreciated 3. Acute blood loss anemia -Transfuse as needed, monitor closely 4. Poorly controlled diabetes mellitus - A1c noted - Stable - continue insulin and will adjust for better control 5. CAD s/p PCI - continue aspirin/statin/beta-blockers - Cardiology consultation appreciated. 6. HTN - stable - continue current medications 7. Hypothyroidism - Continue Synthroid - will need outpatient repeat thyroid studies in 4-6 weeks 8. Hyperlipidemia - continue statin 9. Disposition -pod recs/vascular recs appreciated -Started gabapentin and increased p.o. pain meds due to increasing foot pain, patient does not want to use IV pain medication as it made her very confused and hallucinate last time. -pending SNF placement BRADLEY LEONG Mar 18, 2019 10:53
[2019-03-18] MEDS ORDERED: HYDROCODONE/APAP (10/325) TAB PO PRN (11:00)
[2019-03-18] MEDS: GABAPENTIN 300 MG CAP PO SCH ×2 (11:37→21:20)
--- NOTE | 2019-03-18 18:12 | CONS ---
Assessment/Plan Assessment/Plan Hospital Course (Demo Recall) ID PROGRESS NOTE CURRENT ABX: DAY # => Ampicillin + Levaquin s/p Zyvox, Azith, Zosyn 24H INTERVAL SUMMARY * POD #5 -> s/p right partial hallux amputation 03/13/19 * CLINICALLY NO NEW ISSUES -- Awake, doing well on [place] for pain -- no new issues, nor complaints, VSS, no fevers * Indwelling: Right IJ triple-lumen catheter MICRO/OTHER * 02/20/19 BCX (-) * 02/21/19 Wound Cx (+) WOUND CULTURE Final Organism 1 STAPHYLOCOCCUS AUREUS QUANTITY 1+ Organism 2 ENTEROCOCCUS SPECIES QUANTITY 1+ S AUREUS ENT SPS M.I.C. RX M.I.C. RX --------- --- --------- --- AMPICILLIN <=2 S CEFAZOLIN S CIPROFLOXACIN <=0.5 S CLINDAMYCIN <=0.25 S DOXYCYCLINE S ERYTHROMYCIN <=0.25 S LEVOFLOXACIN 0.25 S OXACILLIN 0.5 S PENICILLIN-G >=0.5 R 2 S RIFAMPIN <=0.5 S VANCOMYCIN <=0.5 S 2 S TRIMETHOPRIM/SULFAMETHOXAZOLE <=10 S PHYSICAL EXAMINATION: GENERAL: VSS, NAD HEENT: AT, NC, anicteric, NECK: Supple, CHEST: Equal chest rise bilaterally, without dyspnea on observation HEART: Pulse RRR ABDOMEN: Soft : deferred EXTREMITIES: Warm, dry -- Rfoot DSG C/D/I SKIN: No rash, no diaphoresis ID ASSESSMENT 74 yo F admit with: 1. Right foot cellulitis with toe gangrene, s/p right partial hallux amputation 03/13/19 2. Peripheral arterial disease status post abdominal aortogram with right popliteal artery angioplasty 02/23/19, s/p bypass graft 03/09/19 3. Diabetes 4. CHF 4. Possible superimposed PNA ABX ALLERGIES: None to ABX INVASIVES: PIV CURRENT ABX: DAY # > Ampicillin + Levaquin ID RECOMMENDATIONS/PLAN: 1. Continue current ABX x 3 more days per ID [employer] colleague note Consultation Date/Type/Reason Admit Date/Time February 20, 2019 at 23:53 Initial Consult Date Date/Time of Note DATE: 03/18/19 TIME: 18:11 Exam/Review of Systems Exam Vitals Vital Signs Date Temp Pulse Resp B/P (MAP) Pulse Ox O2 O2 Flow FiO2 Time Delivery Rate 03/18/19 59 16 133/61 17:14 (85) 03/18/19 97.9 98 Room Air 15:39 03/18/19 3.0 14:42 03/14/19 28 17:07 Intake and Output 03/17/19 03/17/19 03/18/19 1515:00 23:00 07:00 IntakeIntake Total 790 ml 240 ml 360 ml OutputOutput Total 1750 ml 380 ml 1500 ml BalanceBalance -960 ml -140 ml -1140 ml Results Result Diagram: 03/18/19 0555 03/18/19 0555 Results 24hrs Laboratory Tests Test 03/17/19 22:18 03/18/19 05:55 03/18/19 07:57 03/18/19 11:56 Bedside Glucose 104 71 151 White Blood Count 6.3 Red Blood Count 3.22 L Hemoglobin 9.3 L Hematocrit 29.1 L Mean Corpuscular 90.4 Volume Mean Corpuscular 28.9 L Hemoglobin Mean Corpuscular 32.0 Hemoglobin Concent Red Cell 14.0 Distribution Width Platelet Count 277 Mean Platelet Volume 9.1 Immature 0.500 H Granulocytes % Neutrophils % 64.7 Lymphocytes % 20.8 Monocytes % 10.7 Eosinophils % 2.7 Basophils % 0.6 Nucleated Red Blood 0.0 Cells % Immature 0.030 Granulocytes # Neutrophils # 4.0 Lymphocytes # 1.3 Monocytes # 0.7 Eosinophils # 0.2 Basophils # 0.0 Nucleated Red Blood 0.0 Cells # Sodium Level 139 Potassium Level 3.9 Chloride Level 97 Carbon Dioxide Level 33 H Anion Gap 9 Blood Urea Nitrogen 27 H Creatinine 0.96 Est Glomerular Filtrat Rate mL/min Glucose Level 59 #L Calcium Level 8.6 Phosphorus Level 4.6 Magnesium Level 1.9 Test 03/18/19 12:43 03/18/19 17:07 Bedside Glucose 107 70 Medications Medication Current Medications Ondansetron HCl (Zofran Inj) 4 mg Q6H PRN IV NAUSEA AND/OR VOMITING Last administered on 02/21/19at 06:47; Admin Dose 4 MG; Start 02/21/19 at 01:30 Acetaminophen (Tylenol Liquid) 650 mg Q6H PRN PO PAIN LEVEL 1-3 OR FEVER Last administered on 03/15/19at 00:16; Admin Dose 650 MG; Start 02/21/19 at 01:30 Atorvastatin Calcium (Lipitor) 40 mg QHS PO Last administered on 03/17/19at 22:13; Admin Dose 40 MG; Start 02/21/19 at 21:00 Carvedilol (Coreg) 3.125 mg BID PO Last administered on 03/18/19at 01:33; Admin Dose 3.125 MG; Start 02/21/19 at 09:00 Ferrous Sulfate (Ferrous Sulfate (Ec)) 325 mg QAM PO Last administered on 03/18/19at 08:15; Admin Dose 325 MG; Start 02/21/19 at 09:00 Miscellaneous Information 1 ea NOTE XX Last administered on 03/15/19at 12:24; Admin Dose 1 EA; Start 02/21/19 at 06:00 Glucose (Glutose) 15 gm Q15M PRN PO DECREASED GLUCOSE; Start 02/21/19 at 06:00 Glucose (Glutose) 22.5 gm Q15M PRN PO DECREASED GLUCOSE; Start 02/21/19 at 06:00 Dextrose (D50w Syringe) 25 ml Q15M PRN IV DECREASED GLUCOSE; Start 02/21/19 at 06:00 Dextrose (D50w Syringe) 50 ml Q15M PRN IV DECREASED GLUCOSE; Start 02/21/19 at 06:00 Glucagon (Glucagen) 1 mg Q15M PRN IM DECREASED GLUCOSE; Start 02/21/19 at 06:00 Glucose (Glutose) 15 gm Q15M PRN BUCCAL DECREASED GLUCOSE; Start 02/21/19 at 06:00 Levothyroxine Sodium (Synthroid) 150 mcg BEFORE BREAKFAST PO Last administered on 03/18/19at 06:00; Admin Dose 150 MCG; Start 02/25/19 at 07:00 Senna/Docusate Sodium (Senokot-S) 1 tab BID PRN PO constipation Last administered on 03/12/19 09:01; Admin Dose 1 TAB; Start 02/25/19 at 10:00 Bisacodyl (Dulcolax Supp) 10 mg DAILY PRN [place] CONSTIPATION Last administered on 03/15/19at 06:01; Admin Dose 10 MG; Start 02/25/19 at 10:00 Budesonide (Pulmicort (Neb)) 0.5 mg BID RESP THERAPY HHN Last administered on 03/17/19 19:27; Admin Dose 0.5 MG; Start 02/26/19 at 20:00 Famotidine (Pepcid) 20 mg DAILY PO Last administered on 03/18/19 08:15; Admin Dose 20 MG; Start 02/27/19 at 09:00 Guaifenesin/ Codeine Phosphate (Robitussin Ac Liquid Cup) 5 ml Q4H PRN PO cough Last administered on 03/15/19 09:38; Admin Dose 5 ML; Start 03/01/19 at 10:30 Diagnostic Test (Pha) (Accu-Chek) 1 ea 02 XX Last administered on 03/14/19 01:52; Admin Dose 1 EA; Start 03/05/19 at 02:00 Losartan Potassium (Cozaar) 50 mg QPM PO Last administered on 03/17/19 22:13; Admin Dose 50 MG; Start 03/05/19 at 21:00 Insulin Aspart (Novolog Insulin Pen) 10 unit WITH MEALS SC Last administered on 03/18/19 12:53; Admin Dose 10 UNIT; Start 03/05/19 at 11:30 Insulin Glargine (Lantus) 30 units DAILY@2000 SC Last administered on 03/17/19 22:24; Admin Dose 30 UNITS; Start 03/05/19 at 20:00 Hydralazine HCl (Apresoline) 10 mg Q6H PRN IV SBP>160 Last administered on 03/09/19 12:40; Admin Dose 20 MG; Start 03/05/19 at 11:00 Levofloxacin (Levaquin) 250 mg DAILY@06 PO Last administered on 03/18/19 06:01; Admin Dose 250 MG; Start 03/09/19 at 06:00 Insulin Aspart (Novolog Insulin Pen) NOVOLOG *MILD* ALGORITHM WITH MEALS BEDTIME SC Last administered on 03/15/19 17:03; Admin Dose 1 UNIT; Start 03/09/19 at 17:35 Polyethylene Glycol (Miralax) 17 gm DAILY PRN PO CONSTIPATION; Start 03/13/19 at 14:30 Amlodipine Besylate (Norvasc) 10 mg DAILY PO Last administered on 03/18/19 08:15; Admin Dose 10 MG; Start 03/14/19 at 09:30 Amoxicillin (Amoxicillin) 500 mg Q8 PO Last administered on 03/18/19 16:41; Admin Dose 500 MG; Start 03/15/19 at 14:00 Levalbuterol (Xopenex Neb) 1.25 mg Q6H RESP THERAPY HHN Last administered on 03/18/19 07:45; Admin Dose 1.25 MG; Start 03/15/19 at 20:00 Levalbuterol (Xopenex Neb) 1.25 mg Q6H RESP THERAPY PRN HHN wheezing; Start 03/15/19 at 15:00 Ipratropium [place] (Atrovent 0.02% (Neb)) 0.5 mg Q6HWA RESP THERAPY HHN Last administered on 03/18/19 07:45; Admin Dose 0.5 MG; Start 03/15/19 at 20:00 Ipratropium [place] (Atrovent 0.02% (Neb)) 0.5 mg Q6H RESP THERAPY PRN HHN shortness of breath Last administered on 03/18/19 02:05; Admin Dose 0.5 MG; Start 03/15/19 at 15:00 Aspirin (Aspirin) 81 mg DAILY PO Last administered on 03/18/19 08:15; Admin Dose 81 MG; Start 03/16/19 at 09:00 Furosemide (Lasix) 20 mg BID DIURETICS IV Last administered on 03/18/19 17:18; Admin Dose 20 MG; Start 03/16/19 at 06:00 Enoxaparin Sodium (Lovenox) 40 mg DAILY SC Last administered on 03/18/19 08:28; Admin Dose 40 MG; Start 03/17/19 at 09:00 Oxycodone/ Acetaminophen (Percocet (5/ 325)) 1 tab Q4H PRN PO pain 7-10; Start 03/18/19 at 11:00 Acetaminophen/ Hydrocodone Bitart ([place] (10/325)) 1 tab Q4H PRN PO MODERATE PAIN LEVEL 4-6; Start 03/18/19 at 11:00 Gabapentin (Neurontin) 300 mg TID PO Last administered on 03/18/19 11:37; Admin Dose 300 MG; Start 03/18/19 at 11:00 RADHA SNEED NP Mar 18, 2019 18:12
[2019-03-18] MEDS: INSULIN GLARGINE [LANTus] (100 UNITS/ML) SYG SC SCH (21:18)
[2019-03-18] MEDS: ATORVASTATIN 40 MG TAB PO SCH (21:20)
[2019-03-18] MEDS: LOSARTAN 50 MG TAB PO SCH (21:20)
[2019-03-18] MEDS: OXYCODONE/ACETAMINOPHEN (5/325) TAB PO PRN (21:21)
[2019-03-18] MEDS: ACCU-CHEK XX SCH (23:27)
[2019-03-19] MEDS: LEVALBUTEROL (NEB) 1.25 MG/0.5 ML AMP HHN SCH ×4 (01:13→19:18)
[2019-03-19 02:00] VITALS: BP 117/59; PULSE 59; RESP 16
[2019-03-19] MEDS: LEVOFLOXACIN 250 MG TAB PO SCH (05:47)
[2019-03-19] MEDS: FUROSEMIDE 20 MG INJ IV SCH (05:47)
[2019-03-19] MEDS: AMOXICILLIN 500 MG CAP PO SCH ×2 (05:47→13:17)
[2019-03-19] MEDS: LEVOTHYROXINE 150 MCG TAB PO SCH (05:47)
[2019-03-19 07:48] VITALS: BP 119/59; PULSE 59
[2019-03-19] MEDS: OXYCODONE/ACETAMINOPHEN (5/325) TAB PO PRN (07:52)
[2019-03-19] MEDS: INSULIN ASPART [NOVOLOG] 3 ML PEN SC SCH ×7 (07:57→21:00)
[2019-03-19] MEDS: ENOXAPARIN 40 MG/0.4 ML SYG SC SCH (08:01)
[2019-03-19] MEDS: FERROUS SULFATE (EC) 325 MG TAB PO SCH (08:01)
[2019-03-19] MEDS: FAMOTIDINE 20 MG TAB PO SCH (08:01)
[2019-03-19] MEDS: ASPIRIN 81 MG TAB PO SCH (08:01)
[2019-03-19] MEDS: GABAPENTIN 300 MG CAP PO SCH ×3 (08:02→21:19)
[2019-03-19] MEDS: AMLODIPINE 10 MG TAB PO SCH (08:05)
[2019-03-19] MEDS: IPRATROPIUM (NEB) 0.5 MG/2.5 ML AMP HHN SCH ×3 (08:58→19:17)
[2019-03-19] MEDS: BUDESONIDE (NEB) 0.5MG/2ML AMP HHN SCH ×2 (09:08→19:18)
--- NOTE | 2019-03-19 15:16 | CONS ---
Assessment/Plan Assessment/Plan Hospital Course (Demo Recall) No acute events, alert, feels good, no fevers Indwelling: Right IJ triple-lumen catheter Antimicrobials: Levaquin, amoxicillin Microbiology: Right foot wound culture grew REAL and enterococcus species Physical examination: Obese well-developed fragile elderly woman who is alert in no distress. Head atraumatic normocephalic sclera nonicteric neck is supple chest rise symmetrical breath sounds clear heart: S1-S2. Abdomen soft bowel sounds present. Extremities: Right lower extremity dressing intact Assessment: 1. Right foot cellulitis with toe gangrene, s/p right partial hallux amputation 03/13/19 2. Peripheral arterial disease status post abdominal aortogram with right popliteal artery angioplasty 02/23/19, s/p bypass graft 03/09/19 3. Diabetes 4. CHF Plan: Stable, dc abx, f/u podiatry/cardiology rec-s Consultation Date/Type/Reason Admit Date/Time February 20, 2019 at 23:53 Initial Consult Date Type of Consult id Date/Time of Note DATE: 03/19/19 TIME: 15:15 Exam/Review of Systems Exam Vitals Vital Signs Date Temp Pulse Resp B/P (MAP) Pulse Ox O2 O2 Flow FiO2 Time Delivery Rate 03/19/19 98 2.0 14:23 03/19/19 75 18 Nasal 14:23 Cannula 03/19/19 98.3 119/59 07:48 (79) Intake and Output 03/18/19 03/18/19 03/19/19 1515:00 23:00 07:00 IntakeIntake Total 120 ml 240 ml OutputOutput Total 1250 ml 650 ml 500 ml BalanceBalance -1250 ml -530 ml -260 ml Results Result Diagram: 03/19/19 0432 03/19/19 0432 Results 24hrs Laboratory Tests Test 03/18/19 17:07 03/18/19 21:16 03/19/19 01:55 03/19/19 04:32 Bedside Glucose 70 128 157 White Blood Count 5.9 Red Blood Count 3.05 L Hemoglobin 8.6 L Hematocrit 27.2 L Mean Corpuscular 89.2 Volume Mean Corpuscular 28.2 L Hemoglobin Mean Corpuscular 31.6 L Hemoglobin Concent Red Cell 14.2 Distribution Width Platelet Count 277 Mean Platelet Volume 9.4 Immature 0.700 H Granulocytes % Neutrophils % 55.9 Lymphocytes % 25.0 Monocytes % 14.8 H Eosinophils % 3.1 Basophils % 0.5 Nucleated Red Blood 0.0 Cells % Immature 0.040 H Granulocytes # Neutrophils # 3.3 Lymphocytes # 1.5 Monocytes # 0.9 Eosinophils # 0.2 Basophils # 0.0 Nucleated Red Blood 0.0 Cells # Sodium Level 137 Potassium Level 3.5 Chloride Level 94 L Carbon Dioxide Level 34 H Anion Gap 9 Blood Urea Nitrogen 36 H Creatinine 1.07 H Est Glomerular Filtrat Rate mL/min Glucose Level 135 # Calcium Level 8.5 Phosphorus Level 5.3 H Magnesium Level 2.0 Test 03/19/19 07:55 03/19/19 11:57 Bedside Glucose 141 109 Medications Medication Current Medications Ondansetron HCl (Zofran Inj) 4 mg Q6H PRN IV NAUSEA AND/OR VOMITING Last administered on 02/21/19 06:47; Admin Dose 4 MG; Start 02/21/19 at 01:30 Acetaminophen (Tylenol Liquid) 650 mg Q6H PRN PO PAIN LEVEL 1-3 OR FEVER Last administered on 03/15/19at 00:16; Admin Dose 650 MG; Start 02/21/19 at 01:30 Atorvastatin Calcium (Lipitor) 40 mg QHS PO Last administered on 03/18/19 21:20; Admin Dose 40 MG; Start 02/21/19 at 21:00 Carvedilol (Coreg) 3.125 mg BID PO Last administered on 03/18/19 21:20; Admin Dose 3.125 MG; Start 02/21/19 at 09:00 Ferrous Sulfate (Ferrous Sulfate (Ec)) 325 mg QAM PO Last administered on 03/19/19at 08:01; Admin Dose 325 MG; Start 02/21/19 at 09:00 Miscellaneous Information 1 ea NOTE XX Last administered on 03/15/19at 12:24; Admin Dose 1 EA; Start 02/21/19 at 06:00 Glucose (Glutose) 15 gm Q15M PRN PO DECREASED GLUCOSE; Start 02/21/19 at 06:00 Glucose (Glutose) 22.5 gm Q15M PRN PO DECREASED GLUCOSE; Start 02/21/19 at 06:00 Dextrose (D50w Syringe) 25 ml Q15M PRN IV DECREASED GLUCOSE; Start 02/21/19 at 06:00 Dextrose (D50w Syringe) 50 ml Q15M PRN IV DECREASED GLUCOSE; Start 02/21/19 at 06:00 Glucagon (Glucagen) 1 mg Q15M PRN IM DECREASED GLUCOSE; Start 02/21/19 at 06:00 Glucose (Glutose) 15 gm Q15M PRN BUCCAL DECREASED GLUCOSE; Start 02/21/19 at 06:00 Levothyroxine Sodium (Synthroid) 150 mcg BEFORE BREAKFAST PO Last administered on 03/19/19 05:47; Admin Dose 150 MCG; Start 02/25/19 at 07:00 Senna/Docusate Sodium (Senokot-S) 1 tab BID PRN PO constipation Last administered on 03/12/19 09:01; Admin Dose 1 TAB; Start 02/25/19 at 10:00 Bisacodyl (Dulcolax Supp) 10 mg DAILY PRN [place] CONSTIPATION Last administered on 03/15/19 06:01; Admin Dose 10 MG; Start 02/25/19 at 10:00 Budesonide (Pulmicort (Neb)) 0.5 mg BID RESP THERAPY HHN Last administered on 03/19/19 09:08; Admin Dose 0.5 MG; Start 02/26/19 at 20:00 Famotidine (Pepcid) 20 mg DAILY PO Last administered on 03/19/19 08:01; Admin Dose 20 MG; Start 02/27/19 at 09:00 Guaifenesin/ Codeine Phosphate (Robitussin Ac Liquid Cup) 5 ml Q4H PRN PO cough Last administered on 03/15/19 09:38; Admin Dose 5 ML; Start 03/01/19 at 10:30 Diagnostic Test (Pha) (Accu-Chek) 1 ea 02 XX Last administered on 03/14/19 01:52; Admin Dose 1 EA; Start 03/05/19 at 02:00 Losartan Potassium (Cozaar) 50 mg QPM PO Last administered on 03/18/19 21:20; Admin Dose 50 MG; Start 03/05/19 at 21:00 Insulin Aspart (Novolog Insulin Pen) 10 unit WITH MEALS SC Last administered on 03/19/19 12:02; Admin Dose 10 UNIT; Start 03/05/19 at 11:30 Insulin Glargine (Lantus) 30 units DAILY@2000 SC Last administered on 03/18/19 21:18; Admin Dose 30 UNITS; Start 03/05/19 at 20:00 Hydralazine HCl (Apresoline) 10 mg Q6H PRN IV SBP>160 Last administered on 03/09/19 12:40; Admin Dose 20 MG; Start 03/05/19 at 11:00 Levofloxacin (Levaquin) 250 mg DAILY@06 PO Last administered on 03/19/19 05:47; Admin Dose 250 MG; Start 03/09/19 at 06:00 Insulin Aspart (Novolog Insulin Pen) NOVOLOG *MILD* ALGORITHM WITH MEALS BEDTIME SC Last administered on 03/19/19 07:59; Admin Dose 1 UNIT; Start 03/09/19 at 17:35 Polyethylene Glycol (Miralax) 17 gm DAILY PRN PO CONSTIPATION; Start 03/13/19 at 14:30 Amlodipine Besylate (Norvasc) 10 mg DAILY PO Last administered on 03/19/19 08:05; Admin Dose 10 MG; Start 03/14/19 at 09:30 Amoxicillin (Amoxicillin) 500 mg Q8 PO Last administered on 03/19/19 13:17; Admin Dose 500 MG; Start 03/15/19 at 14:00 Levalbuterol (Xopenex Neb) 1.25 mg Q6H RESP THERAPY HHN Last administered on 03/19/19 14:23; Admin Dose 1.25 MG; Start 03/15/19 at 20:00 Levalbuterol (Xopenex Neb) 1.25 mg Q6H RESP THERAPY PRN HHN wheezing; Start 03/15/19 at 15:00 Ipratropium [place] (Atrovent 0.02% (Neb)) 0.5 mg Q6HWA RESP THERAPY HHN Last administered on 03/19/19 14:23; Admin Dose 0.5 MG; Start 03/15/19 at 20:00 Ipratropium [place] (Atrovent 0.02% (Neb)) 0.5 mg Q6H RESP THERAPY PRN HHN shortness of breath Last administered on 03/18/19 02:05; Admin Dose 0.5 MG; Start 03/15/19 at 15:00 Aspirin (Aspirin) 81 mg DAILY PO Last administered on 03/19/19 08:01; Admin Dose 81 MG; Start 03/16/19 at 09:00 Enoxaparin Sodium (Lovenox) 40 mg DAILY SC Last administered on 03/19/19 08:01; Admin Dose 40 MG; Start 03/17/19 at 09:00 Oxycodone/ Acetaminophen (Percocet (5/ 325)) 1 tab Q4H PRN PO pain 7-10 Last administered on 03/19/19 07:52; Admin Dose 1 TAB; Start 03/18/19 at 11:00 Acetaminophen/ Hydrocodone Bitart ([place] (10/325)) 1 tab Q4H PRN PO MODERATE PAIN LEVEL 4-6; Start 03/18/19 at 11:00 Gabapentin (Neurontin) 300 mg TID PO Last administered on 03/19/19at 12:01; Admin Dose 300 MG; Start 03/18/19 at 11:00 Furosemide (Lasix) 20 mg BID DIURETICS PO ; Start 03/19/19 at 18:00 TORI GARCIA NP Mar 19, 2019 15:16
--- NOTE | 2019-03-19 17:18 | PN ---
Date/Time of Note Date/Time of Note DATE: 03/19/19 TIME: 17:14 Assessment/Plan VTE Prophylaxis Risk score (from Ns)>0 risk: 9 SCD applied (from [facility] [place] No SCD contraindicated: other Pharmacological prophylaxis: LMWH Lines/Catheters IV Catheter Type (from [facility] Central Line Central line still needed: Yes Urinary Cath still in place: No Assessment/Plan Assessment/Plan 1. Right great toe with gas gangrene s/p I&D 02/21, status post partial hallux amputation done on March 13, 2019 - Vascular surgery on board and appreciate consultation. Patient is s/p right popliteal to dorsalis pedis bypass 03/09 and partial hallux amputation done 03/13/19. - ID on board and d/c antibiotics - pain control - Continue local wound care and dressing changes 2. Acute hypoxic respiratory failure- resolved - Cardiology consultation appreciated. did well following Lasix 3. Peripheral artery disease s/p R pop-Dp bypass - Vascular input appreciated 4. Acute blood loss anemia - stable - no transfusions needed at this time 5. Poorly controlled diabetes mellitus - A1c noted - Stable - continue insulin and will adjust for better control 6. CAD s/p PCI - continue aspirin/statin/beta-blockers - Cardiology consultation appreciated. 7. HTN - stable - continue current medications 8. Hypothyroidism - Continue Synthroid - will need outpatient repeat thyroid studies 9. Hyperlipidemia - continue statin 10. Disposition - Will touch base with podiatry and vasc if any needs prior to d/c - If no acute issues, will d/c to SNF tomorrow Result Diagram: 03/19/19 0432 03/19/19 0432 Results 24hrs Laboratory Tests Test 03/18/19 21:16 03/19/19 01:55 03/19/19 04:32 03/19/19 07:55 Bedside Glucose 128 157 141 White Blood Count 5.9 Red Blood Count 3.05 L Hemoglobin 8.6 L Hematocrit 27.2 L Mean Corpuscular 89.2 Volume Mean Corpuscular 28.2 L Hemoglobin Mean Corpuscular 31.6 L Hemoglobin Concent Red Cell 14.2 Distribution Width Platelet Count 277 Mean Platelet Volume 9.4 Immature 0.700 H Granulocytes % Neutrophils % 55.9 Lymphocytes % 25.0 Monocytes % 14.8 H Eosinophils % 3.1 Basophils % 0.5 Nucleated Red Blood 0.0 Cells % Immature 0.040 H Granulocytes # Neutrophils # 3.3 Lymphocytes # 1.5 Monocytes # 0.9 Eosinophils # 0.2 Basophils # 0.0 Nucleated Red Blood 0.0 Cells # Sodium Level 137 Potassium Level 3.5 Chloride Level 94 L Carbon Dioxide Level 34 H Anion Gap 9 Blood Urea Nitrogen 36 H Creatinine 1.07 H Est Glomerular Filtrat Rate mL/min Glucose Level 135 # Calcium Level 8.5 Phosphorus Level 5.3 H Magnesium Level 2.0 Test 03/19/19 11:57 Bedside Glucose 109 Subjective 24 Hr Interval Summary Free Text/Dictation Patient doing well but does admit to lower abdominal discomfort which she associated with constipation. Did have a BM yesterday but feels as if still needs to go more. No acute overnight events. Exam/Review of Systems Exam Vitals Vital Signs Date Temp Pulse Resp B/P (MAP) Pulse Ox O2 O2 Flow FiO2 Time Delivery Rate 03/19/19 98 2.0 14:23 03/19/19 75 18 Nasal 14:23 Cannula 03/19/19 98.3 119/59 07:48 (79) Intake and Output 03/18/19 03/18/19 03/19/19 1414:59 22:59 06:59 IntakeIntake Total 120 ml 240 ml OutputOutput Total 1250 ml 650 ml 500 ml BalanceBalance -1250 ml -530 ml -260 ml Exam General: Patient is laying in bed and answers questions appropriately Neck: Supple, nontender, midline Respiratory: Clear bilaterally, No wheezing to auscultation bilaterally Cardiovascular: regular rate and rhythm, no obvious murmurs Gastrointestinal: soft, mildly tender LLQ, nondistended, bowel sounds heard. Neurological: Moves all extremities spontaneously Skin: Surgical site bandaged, CDI Results Results 24hrs Laboratory Tests Test 03/18/19 21:16 03/19/19 01:55 03/19/19 04:32 03/19/19 07:55 Bedside Glucose 128 157 141 White Blood Count 5.9 Red Blood Count 3.05 L Hemoglobin 8.6 L Hematocrit 27.2 L Mean Corpuscular 89.2 Volume Mean Corpuscular 28.2 L Hemoglobin Mean Corpuscular 31.6 L Hemoglobin Concent Red Cell 14.2 Distribution Width Platelet Count 277 Mean Platelet Volume 9.4 Immature 0.700 H Granulocytes % Neutrophils % 55.9 Lymphocytes % 25.0 Monocytes % 14.8 H Eosinophils % 3.1 Basophils % 0.5 Nucleated Red Blood 0.0 Cells % Immature 0.040 H Granulocytes # Neutrophils # 3.3 Lymphocytes # 1.5 Monocytes # 0.9 Eosinophils # 0.2 Basophils # 0.0 Nucleated Red Blood 0.0 Cells # Sodium Level 137 Potassium Level 3.5 Chloride Level 94 L Carbon Dioxide Level 34 H Anion Gap 9 Blood Urea Nitrogen 36 H Creatinine 1.07 H Est Glomerular Filtrat Rate mL/min Glucose Level 135 # Calcium Level 8.5 Phosphorus Level 5.3 H Magnesium Level 2.0 Test 03/19/19 11:57 Bedside Glucose 109 Medications Medication Current Medications Ondansetron HCl (Zofran Inj) 4 mg Q6H PRN IV NAUSEA AND/OR VOMITING Last administered on 02/21/19 06:47; Admin Dose 4 MG; Start 02/21/19 at 01:30 Acetaminophen (Tylenol Liquid) 650 mg Q6H PRN PO PAIN LEVEL 1-3 OR FEVER Last administered on 03/15/19at 00:16; Admin Dose 650 MG; Start 02/21/19 at 01:30 Atorvastatin Calcium (Lipitor) 40 mg QHS PO Last administered on 03/18/19 21:20; Admin Dose 40 MG; Start 02/21/19 at 21:00 Carvedilol (Coreg) 3.125 mg BID PO Last administered on 03/18/19 21:20; Admin Dose 3.125 MG; Start 02/21/19 at 09:00 Ferrous Sulfate (Ferrous Sulfate (Ec)) 325 mg QAM PO Last administered on 03/19/19 08:01; Admin Dose 325 MG; Start 02/21/19 at 09:00 Miscellaneous Information 1 ea NOTE XX Last administered on 03/15/19 12:24; Admin Dose 1 EA; Start 02/21/19 at 06:00 Glucose (Glutose) 15 gm Q15M PRN PO DECREASED GLUCOSE; Start 02/21/19 at 06:00 Glucose (Glutose) 22.5 gm Q15M PRN PO DECREASED GLUCOSE; Start 02/21/19 at 06:00 Dextrose (D50w Syringe) 25 ml Q15M PRN IV DECREASED GLUCOSE; Start 02/21/19 at 06:00 Dextrose (D50w Syringe) 50 ml Q15M PRN IV DECREASED GLUCOSE; Start 02/21/19 at 06:00 Glucagon (Glucagen) 1 mg Q15M PRN IM DECREASED GLUCOSE; Start 02/21/19 at 06:00 Glucose (Glutose) 15 gm Q15M PRN BUCCAL DECREASED GLUCOSE; Start 02/21/19 at 06:00 Levothyroxine Sodium (Synthroid) 150 mcg BEFORE BREAKFAST PO Last administered on 03/19/19 05:47; Admin Dose 150 MCG; Start 02/25/19 at 07:00 Senna/Docusate Sodium (Senokot-S) 1 tab BID PRN PO constipation Last administered on 03/12/19 09:01; Admin Dose 1 TAB; Start 02/25/19 at 10:00 Bisacodyl (Dulcolax Supp) 10 mg DAILY PRN [place] CONSTIPATION Last administered on 03/15/19 06:01; Admin Dose 10 MG; Start 02/25/19 at 10:00 Budesonide (Pulmicort (Neb)) 0.5 mg BID RESP THERAPY HHN Last administered on 03/19/19 09:08; Admin Dose 0.5 MG; Start 02/26/19 at 20:00 Famotidine (Pepcid) 20 mg DAILY PO Last administered on 03/19/19 08:01; Admin Dose 20 MG; Start 02/27/19 at 09:00 Guaifenesin/ Codeine Phosphate (Robitussin Ac Liquid Cup) 5 ml Q4H PRN PO cough Last administered on 03/15/19 09:38; Admin Dose 5 ML; Start 03/01/19 at 10:30 Diagnostic Test (Pha) (Accu-Chek) 1 ea 02 XX Last administered on 03/14/19 01:52; Admin Dose 1 EA; Start 03/05/19 at 02:00 Losartan Potassium (Cozaar) 50 mg QPM PO Last administered on 03/18/19 21:20; Admin Dose 50 MG; Start 03/05/19 at 21:00 Insulin Aspart (Novolog Insulin Pen) 10 unit WITH MEALS SC Last administered on 03/19/19 12:02; Admin Dose 10 UNIT; Start 03/05/19 at 11:30 Insulin Glargine (Lantus) 30 units DAILY@2000 SC Last administered on 03/18/19 21:18; Admin Dose 30 UNITS; Start 03/05/19 at 20:00 Hydralazine HCl (Apresoline) 10 mg Q6H PRN IV SBP>160 Last administered on 03/09/19 12:40; Admin Dose 20 MG; Start 03/05/19 at 11:00 Insulin Aspart (Novolog Insulin Pen) NOVOLOG *MILD* ALGORITHM WITH MEALS BEDTIME SC Last administered on 03/19/19 07:59; Admin Dose 1 UNIT; Start 03/09/19 at 17:35 Polyethylene Glycol (Miralax) 17 gm DAILY PRN PO CONSTIPATION; Start 03/13/19 at 14:30 Amlodipine Besylate (Norvasc) 10 mg DAILY PO Last administered on 03/19/19 08:05; Admin Dose 10 MG; Start 03/14/19 at 09:30 Levalbuterol (Xopenex Neb) 1.25 mg Q6H RESP THERAPY HHN Last administered on 03/19/19 14:23; Admin Dose 1.25 MG; Start 03/15/19 at 20:00 Levalbuterol (Xopenex Neb) 1.25 mg Q6H RESP THERAPY PRN HHN wheezing; Start at 15:00 Ipratropium [place] (Atrovent 0.02% (Neb)) 0.5 mg Q6HWA RESP THERAPY HHN Last administered on 03/19/19 14:23; Admin Dose 0.5 MG; Start 03/15/19 at 20:00 Ipratropium [place] (Atrovent 0.02% (Neb)) 0.5 mg Q6H RESP THERAPY PRN HHN shortness of breath Last administered on 03/18/19 02:05; Admin Dose 0.5 MG; Start 03/15/19 at 15:00 Aspirin (Aspirin) 81 mg DAILY PO Last administered on 03/19/19 08:01; Admin Dose 81 MG; Start 03/16/19 at 09:00 Enoxaparin Sodium (Lovenox) 40 mg DAILY SC Last administered on 03/19/19 08:01; Admin Dose 40 MG; Start 03/17/19 at 09:00 Oxycodone/ Acetaminophen (Percocet (5/ 325)) 1 tab Q4H PRN PO pain 7-10 Last administered on 6/24/19at 07:52; Admin Dose 1 TAB; Start 03/18/19 at 11:00 Acetaminophen/ Hydrocodone Bitart ([place] (10)) 1 tab Q4H PRN PO MODERATE PAIN LEVEL 4-6; Start 03/18/19 at 11:00 Gabapentin (Neurontin) 300 mg TID PO Last administered on 03/19/19at 12:01; Admin Dose 300 MG; Start 03/18/19 at 11:00 Furosemide (Lasix) 20 mg BID DIURETICS PO ; Start 03/19/19 at 18:00 XUAN PROCTOR MD Mar 19, 2019 17:18
[2019-03-19] MEDS: FUROSEMIDE 20 MG TAB PO SCH (17:40)
[2019-03-19 20:00] VITALS: BP 118/58; PULSE 60; RESP 18
[2019-03-19] MEDS: LOSARTAN 50 MG TAB PO SCH (21:20)
[2019-03-19] MEDS: ATORVASTATIN 40 MG TAB PO SCH (21:20)
[2019-03-19] MEDS: ACCU-CHEK XX SCH (21:27)
[2019-03-19] MEDS: INSULIN GLARGINE [LANTus] (100 UNITS/ML) SYG SC SCH (21:27)
--- NOTE | 2019-03-19 22:38 | CONS ---
Assessment/Plan Cardiology NYHA: II Heart Failure Type: Acute Heart Failure Type: Diastolic Assessment/Plan Hospital Course (Demo Recall) Acute decompensated diastolic congestive heart failure Gas gangrene right foot s/p debridement PAD status post lower extremity bypass CAD with history of PCI, most recently December 2017 Diabetes, uncontrolled Hypertension Dyslipidemia Appear more euvolemic, decrease lasix Cont ASA as efrem Continue statin therapy as tolerated Consultation Date/Type/Reason Admit Date/Time February 20, 2019 at 23:53 Initial Consult Date Type of Consult Cardiology Date/Time of Note DATE: 03/19/19 TIME: 22:36 24 HR Interval Summary Free Text/Dictation no sob,palp,cp Exam/Review of Systems Vital Signs Vitals Vital Signs Date Temp Pulse Resp B/P (MAP) Pulse Ox O2 O2 Flow FiO2 Time Delivery Rate 03/19/19 98.0 60 18 118/58 98 20:00 (78) 03/19/19 2.0 19:18 03/19/19 Nasal 19:18 Cannula Intake and Output 03/18/19 03/18/19 03/19/19 1515:00 23:00 07:00 IntakeIntake Total 120 ml 240 ml OutputOutput Total 1250 ml 650 ml 500 ml BalanceBalance -1250 ml -530 ml -260 ml Exam Constitutional: alert, oriented (nad) Head: normocephalic Respiratory: other (course bs, no wheeze) Cardiovascular: regular rate and rhythm (s1s2) Gastrointestinal: soft, non-tender, bowel sounds Extremities: other (tr edema) Labs Result Diagram: 03/19/19 0432 03/19/19 0432 Results 24hrs Laboratory Tests Test 03/19/19 01:55 03/19/19 04:32 03/19/19 07:55 03/19/19 11:57 Bedside Glucose 157 141 109 White Blood Count 5.9 Red Blood Count 3.05 L Hemoglobin 8.6 L Hematocrit 27.2 L Mean Corpuscular 89.2 Volume Mean Corpuscular 28.2 L Hemoglobin Mean Corpuscular 31.6 L Hemoglobin Concent Red Cell 14.2 Distribution Width Platelet Count 277 Mean Platelet Volume 9.4 Immature 0.700 H Granulocytes % Neutrophils % 55.9 Lymphocytes % 25.0 Monocytes % 14.8 H Eosinophils % 3.1 Basophils % 0.5 Nucleated Red Blood 0.0 Cells % Immature 0.040 H Granulocytes # Neutrophils # 3.3 Lymphocytes # 1.5 Monocytes # 0.9 Eosinophils # 0.2 Basophils # 0.0 Nucleated Red Blood 0.0 Cells # Sodium Level 137 Potassium Level 3.5 Chloride Level 94 L Carbon Dioxide Level 34 H Anion Gap 9 Blood Urea Nitrogen 36 H Creatinine 1.07 H Est Glomerular Filtrat Rate mL/min Glucose Level 135 # Calcium Level 8.5 Phosphorus Level 5.3 H Magnesium Level 2.0 Test 03/19/19 17:32 03/19/19 17:46 03/19/19 21:18 Bedside Glucose 71 88 160 Medications Medications Current Medications Ondansetron HCl (Zofran Inj) 4 mg Q6H PRN IV NAUSEA AND/OR VOMITING Last ad ministered on 02/21/19 06:47; Admin Dose 4 MG; Start 02/21/19 at 01:30 Acetaminophen (Tylenol Liquid) 650 mg Q6H PRN PO PAIN LEVEL 1-3 OR FEVER Last administered on 03/15/19 00:16; Admin Dose 650 MG; Start 02/21/19 at 01:30 Atorvastatin Calcium (Lipitor) 40 mg QHS PO Last administered on 03/19/19 21:20; Admin Dose 40 MG; Start 02/21/19 at 21:00 Carvedilol (Coreg) 3.125 mg BID PO Last administered on 03/18/19 21:20; Admin Dose 3.125 MG; Start 02/21/19 at 09:00 Ferrous Sulfate (Ferrous Sulfate (Ec)) 325 mg QAM PO Last administered on 03/19/19 08:01; Admin Dose 325 MG; Start 02/21/19 at 09:00 Miscellaneous Information 1 ea NOTE XX Last administered on 03/15/19at 12:24; Admin Dose 1 EA; Start 02/21/19 at 06:00 Glucose (Glutose) 15 gm Q15M PRN PO DECREASED GLUCOSE; Start 02/21/19 at 06:00 Glucose (Glutose) 22.5 gm Q15M PRN PO DECREASED GLUCOSE; Start 02/21/19 at 06:00 Dextrose (D50w Syringe) 25 ml Q15M PRN IV DECREASED GLUCOSE; Start 02/21/19 at 06:00 Dextrose (D50w Syringe) 50 ml Q15M PRN IV DECREASED GLUCOSE; Start 02/21/19 at 06:00 Glucagon (Glucagen) 1 mg Q15M PRN IM DECREASED GLUCOSE; Start 02/21/19 at 06:00 Glucose (Glutose) 15 gm Q15M PRN BUCCAL DECREASED GLUCOSE; Start 02/21/19 at 06:00 Levothyroxine Sodium (Synthroid) 150 mcg BEFORE BREAKFAST PO Last administered on 03/19/19 05:47; Admin Dose 150 MCG; Start 02/25/19 at 07:00 Senna/Docusate Sodium (Senokot-S) 1 tab BID PRN PO constipation Last administered on 03/12/19 09:01; Admin Dose 1 TAB; Start 02/25/19 at 10:00 Bisacodyl (Dulcolax Supp) 10 mg DAILY PRN [place] CONSTIPATION Last administered on 03/15/19 06:01; Admin Dose 10 MG; Start 02/25/19 at 10:00 Budesonide (Pulmicort (Neb)) 0.5 mg BID RESP THERAPY HHN Last administered on 03/19/19 19:18; Admin Dose 0.5 MG; Start 02/26/19 at 20:00 Famotidine (Pepcid) 20 mg DAILY PO Last administered on 03/19/19 08:01; Admin Dose 20 MG; Start 02/27/19 at 09:00 Guaifenesin/ Codeine Phosphate (Robitussin Ac Liquid Cup) 5 ml Q4H PRN PO cough Last administered on 03/15/19 09:38; Admin Dose 5 ML; Start 03/01/19 at 10:30 Diagnostic Test (Pha) (Accu-Chek) 1 ea 02 XX Last administered on 03/14/19 01:52; Admin Dose 1 EA; Start 03/05/19 at 02:00 Losartan Potassium (Cozaar) 50 mg QPM PO Last administered on 03/19/19 21:20; Admin Dose 50 MG; Start 03/05/19 at 21:00 Insulin Aspart (Novolog Insulin Pen) 10 unit WITH MEALS SC Last administered on 03/19/19 12:02; Admin Dose 10 UNIT; Start 03/05/19 at 11:30 Insulin Glargine (Lantus) 30 units DAILY@2000 SC Last administered on 03/19/19 21:27; Admin Dose 30 UNITS; Start 03/05/19 at 20:00 Hydralazine HCl (Apresoline) 10 mg Q6H PRN IV SBP>160 Last administered on 03/09/19 12:40; Admin Dose 20 MG; Start 03/05/19 at 11:00 Insulin Aspart (Novolog Insulin Pen) NOVOLOG *MILD* ALGORITHM WITH MEALS BEDTI ME SC Last administered on 03/19/19 07:59; Admin Dose 1 UNIT; Start 03/09/19 at 17:35 Polyethylene Glycol (Miralax) 17 gm DAILY PRN PO CONSTIPATION Last administered on 03/19/19 17:40; Admin Dose 17 GM; Start 03/13/19 at 14:30 Amlodipine Besylate (Norvasc) 10 mg DAILY PO Last administered on 03/19/19 08:05; Admin Dose 10 MG; Start 03/14/19 at 09:30 Levalbuterol (Xopenex Neb) 1.25 mg Q6H RESP THERAPY HHN Last administered on 03/19/19 19:18; Admin Dose 1.25 MG; Start 03/15/19 at 20:00 Levalbuterol (Xopenex Neb) 1.25 mg Q6H RESP THERAPY PRN HHN wheezing; Start 03/15/19 at 15:00 Ipratropium [place] (Atrovent 0.02% (Neb)) 0.5 mg Q6HWA RESP THERAPY HHN Last administered on 03/19/19 19:17; Admin Dose 0.5 MG; Start 03/15/19 at 20:00 Ipratropium [place] (Atrovent 0.02% (Neb)) 0.5 mg Q6H RESP THERAPY PRN HHN shortness of breath Last administered on 03/18/19 02:05; Admin Dose 0.5 MG; Start 03/15/19 at 15:00 Aspirin (Aspirin) 81 mg DAILY PO Last administered on 03/19/19 08:01; Admin Dose 81 MG; Start 03/16/19 at 09:00 Enoxaparin Sodium (Lovenox) 40 mg DAILY SC Last administered on 03/19/19 08:01; Admin Dose 40 MG; Start 03/17/19 at 09:00 Oxycodone/ Acetaminophen (Percocet (5/ 325)) 1 tab Q4H PRN PO pain 7-10 Last administered on 03/19/19at 07:52; Admin Dose 1 TAB; Start 03/18/19 at 11:00 Acetaminophen/ Hydrocodone Bitart ([place] ()) 1 tab Q4H PRN PO MODERATE PAIN LEVEL 4-6; Start 03/18/19 at 11:00 Gabapentin (Neurontin) 300 mg TID PO Last administered on 03/19/19at 21:19; Admin Dose 300 MG; Start 03/18/19 at 11:00 Furosemide (Lasix) 20 mg BID DIURETICS PO Last administered on 03/19/19at 17:40; Admin Dose 20 MG; Start 03/19/19 at 18:00 Jeremy Alarcon DO Mar 19, 2019 22:38
[2019-03-20] MEDS: LEVALBUTEROL (NEB) 1.25 MG/0.5 ML AMP HHN SCH ×3 (01:23→13:32)
[2019-03-20 02:00] VITALS: BP 116/58; PULSE 61; RESP 17
[2019-03-20] MEDS: FUROSEMIDE 20 MG TAB PO SCH (05:52)
[2019-03-20] MEDS: LEVOTHYROXINE 150 MCG TAB PO SCH (05:53)
[2019-03-20] MEDS: IPRATROPIUM (NEB) 0.5 MG/2.5 ML AMP HHN SCH ×2 (08:00→13:32)
[2019-03-20] MEDS: INSULIN ASPART [NOVOLOG] 3 ML PEN SC SCH ×4 (08:00→12:04)
[2019-03-20 08:32] VITALS: BP 111/57; PULSE 62; RESP 20
[2019-03-20] MEDS: FAMOTIDINE 20 MG TAB PO SCH (08:42)
[2019-03-20] MEDS: GABAPENTIN 300 MG CAP PO SCH ×2 (08:42→14:07)
[2019-03-20] MEDS: ASPIRIN 81 MG TAB PO SCH (08:42)
[2019-03-20] MEDS: FERROUS SULFATE (EC) 325 MG TAB PO SCH (08:42)
[2019-03-20] MEDS: AMLODIPINE 10 MG TAB PO SCH (08:43)
[2019-03-20] MEDS: ENOXAPARIN 40 MG/0.4 ML SYG SC SCH (08:44)
[2019-03-20] MEDS: BUDESONIDE (NEB) 0.5MG/2ML AMP HHN SCH (09:00)
--- NOTE | 2019-03-20 11:24 | CONS ---
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 If strikethrough noted reinforce outer dressings. Leave bypass dressings intact. Partial weight bearing in a surgical shoe. Intra-op path/cultures showing negative growth and negative osteomyelitis. Abx per ID recommendations. Appreciate input from vascular surgery. Patient stable from podiatry stand point and to follow up in outpatient [facility] wound clinic. Consultation Date/Type/Reason Admit Date/Time February 20, 2019 at 23:53 Initial Consult Date Date/Time of Note DATE: 03/20/19 TIME: 11:24 24 HR Interval Summary Free Text/Dictation No acute events overnight. Exam/Review of Systems Exam Vitals Vital Signs Date Temp Pulse Resp B/P (MAP) Pulse Ox O2 O2 Flow FiO2 Time Delivery Rate 03/20/19 Nasal 3.0 09:00 Cannula 03/20/19 98.3 62 20 111/57 97 08:32 (75) Intake and Output 03/19/19 03/19/19 03/20/19 1515:00 23:00 07:00 IntakeIntake Total 240 ml 200 ml OutputOutput Total 1950 ml 1400 ml BalanceBalance 240 ml -1750 ml -1400 ml Exam Skin edges well approximated No sign of gangrene or purulent drainage, no proximal streaking Absent protective sensations Partial hallux amputation site appreciated Pain on palpation to surgical site. Serousanguinous blisters appreciated to the medial ankle region Results Result Diagram: 03/19/19 0432 03/19/19 0432 Results 24hrs Laboratory Tests Test 03/19/19 11:57 03/19/19 17:32 03/19/19 17:46 03/19/19 21:18 Bedside Glucose 109 71 88 160 Test 03/20/19 07:56 03/20/19 08:39 Bedside Glucose 107 111 Medications Medication Current Medications Ondansetron HCl (Zofran Inj) 4 mg Q6H PRN IV NAUSEA AND/OR VOMITING Last administered on 02/21/19at 06:47; Admin Dose 4 MG; Start 02/21/19 at 01:30 Acetaminophen (Tylenol Liquid) 650 mg Q6H PRN PO PAIN LEVEL 1-3 OR FEVER Last administered on 03/15/19 00:16; Admin Dose 650 MG; Start 02/21/19 at 01:30 Atorvastatin Calcium (Lipitor) 40 mg QHS PO Last administered on 03/19/19 21:20; Admin Dose 40 MG; Start 02/21/19 at 21:00 Carvedilol (Coreg) 3.125 mg BID PO Last administered on 03/20/19 08:43; Admin Dose 3.125 MG; Start 02/21/19 at 09:00 Ferrous Sulfate (Ferrous Sulfate (Ec)) 325 mg QAM PO Last administered on 03/20/19 08:42; Admin Dose 325 MG; Start 02/21/19 at 09:00 Miscellaneous Information 1 ea NOTE XX Last administered on 03/15/19 12:24; Admin Dose 1 EA; Start 02/21/19 at 06:00 Glucose (Glutose) 15 gm Q15M PRN PO DECREASED GLUCOSE; Start 02/21/19 at 06:00 Glucose (Glutose) 22.5 gm Q15M PRN PO DECREASED GLUCOSE; Start 02/21/19 at 06:00 Dextrose (D50w Syringe) 25 ml Q15M PRN IV DECREASED GLUCOSE; Start 02/21/19 at 06:00 Dextrose (D50w Syringe) 50 ml Q15M PRN IV DECREASED GLUCOSE; Start 02/21/19 at 06:00 Glucagon (Glucagen) 1 mg Q15M PRN IM DECREASED GLUCOSE; Start 02/21/19 at 06:00 Glucose (Glutose) 15 gm Q15M PRN BUCCAL DECREASED GLUCOSE; Start 02/21/19 at 06:00 Levothyroxine Sodium (Synthroid) 150 mcg BEFORE BREAKFAST PO Last administered on 03/20/19at 05:53; Admin Dose 150 MCG; Start 02/25/19 at 07:00 Senna/Docusate Sodium (Senokot-S) 1 tab BID PRN PO constipation Last administered on 03/12/19 09:01; Admin Dose 1 TAB; Start 02/25/19 at 10:00 Bisacodyl (Dulcolax Supp) 10 mg DAILY PRN [place] CONSTIPATION Last administered on 03/15/19 06:01; Admin Dose 10 MG; Start 02/25/19 at 10:00 Budesonide (Pulmicort (Neb)) 0.5 mg BID RESP THERAPY HHN Last administered on 03/19/19 19:18; Admin Dose 0.5 MG; Start 02/26/19 at 20:00 Famotidine (Pepcid) 20 mg DAILY PO Last administered on 03/20/19 08:42; Admin Dose 20 MG; Start 02/27/19 at 09:00 Guaifenesin/ Codeine Phosphate (Robitussin Ac Liquid Cup) 5 ml Q4H PRN PO cough Last administered on 03/15/19 09:38; Admin Dose 5 ML; Start 03/01/19 at 10:30 Diagnostic Test (Pha) (Accu-Chek) 1 ea 02 XX Last administered on 03/14/19 01:52; Admin Dose 1 EA; Start 03/05/19 at 02:00 Losartan Potassium (Cozaar) 50 mg QPM PO Last administered on 03/19/19 21:20; Admin Dose 50 MG; Start 03/05/19 at 21:00 Insulin Aspart (Novolog Insulin Pen) 10 unit WITH MEALS SC Last administered on 03/20/19 08:41; Admin Dose 10 UNIT; Start 03/05/19 at 11:30 Insulin Glargine (Lantus) 30 units DAILY@2000 SC Last administered on 03/19/19 21:27; Admin Dose 30 UNITS; Start 03/05/19 at 20:00 Hydralazine HCl (Apresoline) 10 mg Q6H PRN IV SBP>160 Last administered on 03/09/19 12:40; Admin Dose 20 MG; Start 03/05/19 at 11:00 Insulin Aspart (Novolog Insulin Pen) NOVOLOG *MILD* ALGORITHM WITH MEALS BEDTIME SC Last administered on 03/19/19 07:59; Admin Dose 1 UNIT; Start 03/09/19 at 17:35 Polyethylene Glycol (Miralax) 17 gm DAILY PRN PO CONSTIPATION Last administered on 03/19/19 17:40; Admin Dose 17 GM; Start 03/13/19 at 14:30 Amlodipine Besylate (Norvasc) 10 mg DAILY PO Last administered on 03/20/19 08:43; Admin Dose 10 MG; Start 03/14/19 at 09:30 Levalbuterol (Xopenex Neb) 1.25 mg Q6H RESP THERAPY HHN Last administered on 03/19/19 19:18; Admin Dose 1.25 MG; Start 03/15/19 at 20:00 Levalbuterol (Xopenex Neb) 1.25 mg Q6H RESP THERAPY PRN HHN wheezing; Start 03/15/19 at 15:00 Ipratropium [place] (Atrovent 0.02% (Neb)) 0.5 mg Q6HWA RESP THERAPY HHN Last administered on 03/19/19 19:17; Admin Dose 0.5 MG; Start 03/15/19 at 20:00 Ipratropium [place] (Atrovent 0.02% (Neb)) 0.5 mg Q6H RESP THERAPY PRN HHN shortness of breath Last administered on 03/18/19 02:05; Admin Dose 0.5 MG; Start 03/15/19 at 15:00 Aspirin (Aspirin) 81 mg DAILY PO Last administered on 03/20/19 08:42; Admin Dose 81 MG; Start 03/16/19 at 09:00 Enoxaparin Sodium (Lovenox) 40 mg DAILY SC Last administered on 03/20/19 08:44; Admin Dose 40 MG; Start 03/17/19 at 09:00 Oxycodone/ Acetaminophen (Percocet (5/ 325)) 1 tab Q4H PRN PO pain 7-10 Last administered on 03/19/19 07:52; Admin Dose 1 TAB; Start 03/18/19 at 11:00 Acetaminophen/ Hydrocodone Bitart ([place] (10/325)) 1 tab Q4H PRN PO MODERATE PAIN LEVEL 4-6; Start 03/18/19 at 11:00 Gabapentin (Neurontin) 300 mg TID PO Last administered on 03/20/19 08:42; Admin Dose 300 MG; Start 03/18/19 at 11:00 Furosemide (Lasix) 20 mg BID DIURETICS PO Last administered on 03/20/19 05:52; Admin Dose 20 MG; Start 03/19/19 at 18:00 NASRA ART DPM Mar 20, 2019 11:24
--- NOTE | 2019-03-20 12:01 | PN ---
Date/Time of Note Date/Time of Note DATE: 03/20/19 TIME: 11:50 Assessment/Plan VTE Prophylaxis Risk score (from Ns)>0 risk: 14 [place] [facility] [place] contraindicated: other Pharmacological prophylaxis: LMWH Lines/Catheters IV [facility] Type ([facility] Central Line Central line still needed: Yes Urinary Cath still in place: No Assessment/Plan Assessment/Plan 1. Right great toe with gas gangrene s/p I&D 02/21, status post partial hallux amputation done on March 13, 2019 - Vascular surgery on board and appreciate consultation. Patient is s/p right popliteal to dorsalis pedis bypass 03/09 and partial hallux amputation done 03/13/19. Will need to follow up on Tuesday with him in wound care - ID on board and d/c antibiotics - pain control - Continue local wound care and dressing changes 2. Acute hypoxic respiratory failure- resolved - Cardiology consultation appreciated. did well following Lasix 3. Peripheral artery disease s/p R pop-Dp bypass - Vascular input appreciated 4. Acute blood loss anemia - stable - no transfusions needed at this time 5. Poorly controlled diabetes mellitus - A1c noted - Stable - continue insulin and will adjust for better control 6. CAD s/p PCI - continue aspirin/statin/beta-blockers - Cardiology consultation appreciated. 7. HTN - stable - continue current medications 8. Hypothyroidism - Continue Synthroid - will need outpatient repeat thyroid studies 9. Hyperlipidemia - continue statin 10. Disposition - Medically stable for discharge to SNF Result Diagram: 03/19/19 0432 03/19/19 0432 Results 24hrs Laboratory Tests Test 03/19/19 11:57 03/19/19 17:32 03/19/19 17:46 03/19/19 21:18 Bedside Glucose 109 71 88 160 Test 03/20/19 07:56 03/20/19 08:39 Bedside Glucose 107 111 Subjective 24 Hr Interval Summary Free Text/Dictation Patient doing well but still states shes having constipation. No acute overnight events. Exam/Review of Systems Exam Vitals Vital Signs Date Temp Pulse Resp B/P (MAP) Pulse Ox O2 O2 Flow FiO2 Time Delivery Rate 03/20/19 Nasal 3.0 09:00 Cannula 03/20/19 98.3 62 20 111/57 97 08:32 (75) Intake and Output 6/03/19/19 03/20/19 1515:00 23:00 07:00 IntakeIntake Total 240 ml 200 ml OutputOutput Total 1950 ml 1400 ml BalanceBalance 240 ml -1750 ml -1400 ml Exam General: Patient is laying in bed and answers questions appropriately Neck: Supple, nontender, midline Respiratory: Clear bilaterally, No wheezing to auscultation bilaterally Cardiovascular: regular rate and rhythm, no obvious murmurs Gastrointestinal: soft, nontender, nondistended, bowel sounds heard. Neurological: Moves all extremities spontaneously Skin: Surgical site bandaged, CDI Results Results 24hrs Laboratory Tests Test 03/19/19 11:57 03/19/19 17:32 03/19/19 17:46 03/19/19 21:18 Bedside Glucose 109 71 88 160 Test 03/20/19 07:56 03/20/19 08:39 Bedside Glucose 107 111 Medications Medication Current Medications Ondansetron HCl (Zofran Inj) 4 mg Q6H PRN IV NAUSEA AND/OR VOMITING Last administered on 02/21/19 06:47; Admin Dose 4 MG; Start 02/21/19 at 01:30 Acetaminophen (Tylenol Liquid) 650 mg Q6H PRN PO PAIN LEVEL 1-3 OR FEVER Last administered on 03/15/19 00:16; Admin Dose 650 MG; Start 02/21/19 at 01:30 Atorvastatin Calcium (Lipitor) 40 mg QHS PO Last administered on 03/19/19 21:20; Admin Dose 40 MG; Start 02/21/19 at 21:00 Carvedilol (Coreg) 3.125 mg BID PO Last administered on 03/20/19 08:43; Admin Dose 3.125 MG; Start 02/21/19 at 09:00 Ferrous Sulfate (Ferrous Sulfate (Ec)) 325 mg QAM PO Last administered on 03/20/19 08:42; Admin Dose 325 MG; Start 02/21/19 at 09:00 Miscellaneous Information 1 ea NOTE XX Last administered on 03/15/19 12:24; Admin Dose 1 EA; Start 02/21/19 at 06:00 Glucose (Glutose) 15 gm Q15M PRN PO DECREASED GLUCOSE; Start 02/21/19 at 06:00 Glucose (Glutose) 22.5 gm Q15M PRN PO DECREASED GLUCOSE; Start 02/21/19 at 06 :00 Dextrose (D50w Syringe) 25 ml Q15M PRN IV DECREASED GLUCOSE; Start 02/21/19 at 06:00 Dextrose (D50w Syringe) 50 ml Q15M PRN IV DECREASED GLUCOSE; Start 02/21/19 at 06:00 Glucagon (Glucagen) 1 mg Q15M PRN IM DECREASED GLUCOSE; Start 02/21/19 at 06:00 Glucose (Glutose) 15 gm Q15M PRN BUCCAL DECREASED GLUCOSE; Start 02/21/19 at 06:00 Levothyroxine Sodium (Synthroid) 150 mcg BEFORE BREAKFAST PO Last administered on 03/20/19 05:53; Admin Dose 150 MCG; Start 02/25/19 at 07:00 Senna/Docusate Sodium (Senokot-S) 1 tab BID PRN PO constipation Last administered on 03/12/19 09:01; Admin Dose 1 TAB; Start 02/25/19 at 10:00 Bisacodyl (Dulcolax Supp) 10 mg DAILY PRN [place] CONSTIPATION Last administered on 03/15/19 06:01; Admin Dose 10 MG; Start 02/25/19 at 10:00 Budesonide (Pulmicort (Neb)) 0.5 mg BID RESP THERAPY HHN Last administered on 03/19/19 19:18; Admin Dose 0.5 MG; Start 02/26/19 at 20:00 Famotidine (Pepcid) 20 mg DAILY PO Last administered on 03/20/19 08:42; Admin Dose 20 MG; Start 02/27/19 at 09:00 Guaifenesin/ Codeine Phosphate (Robitussin Ac Liquid Cup) 5 ml Q4H PRN PO cough Last administered on 03/15/19 09:38; Admin Dose 5 ML; Start 03/01/19 at 10:30 Diagnostic Test (Pha) (Accu-Chek) 1 ea 02 XX Last administered on 03/14/19 01:52; Admin Dose 1 EA; Start 03/05/19 at 02:00 Losartan Potassium (Cozaar) 50 mg QPM PO Last administered on 03/19/19 21:20; Admin Dose 50 MG; Start 03/05/19 at 21:00 Insulin Aspart (Novolog Insulin Pen) 10 unit WITH MEALS SC Last administered on 03/20/19 08:41; Admin Dose 10 UNIT; Start 03/05/19 at 11:30 Insulin Glargine (Lantus) 30 units DAILY@2000 SC Last administered on 03/19/19 21:27; Admin Dose 30 UNITS; Start 03/05/19 at 20:00 Hydralazine HCl (Apresoline) 10 mg Q6H PRN IV SBP>160 Last administered on 03/09/19 12:40; Admin Dose 20 MG; Start 03/05/19 at 11:00 Insulin Aspart (Novolog Insulin Pen) NOVOLOG *MILD* ALGORITHM WITH MEALS BEDTIME SC Last administered on 03/19/19 07:59; Admin Dose 1 UNIT; Start 03/09/19 at 17:35 Polyethylene Glycol (Miralax) 17 gm DAILY PRN PO CONSTIPATION Last administered on 03/19/19 17:40; Admin Dose 17 GM; Start 03/13/19 at 14:30 Amlodipine Besylate (Norvasc) 10 mg DAILY PO Last administered on 03/20/19 08:43; Admin Dose 10 MG; Start 03/14/19 at 09:30 Levalbuterol (Xopenex Neb) 1.25 mg Q6H RESP THERAPY HHN Last administered on 03/19/19 19:18; Admin Dose 1.25 MG; Start 03/15/19 at 20:00 Levalbuterol (Xopenex Neb) 1.25 mg Q6H RESP THERAPY PRN HHN wheezing; Start 03/15/19 at 15:00 Ipratropium [place] (Atrovent 0.02% (Neb)) 0.5 mg Q6HWA RESP THERAPY HHN Last administered on 03/19/19 19:17; Admin Dose 0.5 MG; Start 03/15/19 at 20:00 Ipratropium [place] (Atrovent 0.02% (Neb)) 0.5 mg Q6H RESP THERAPY PRN HHN shortness of breath Last administered on 03/18/19 02:05; Admin Dose 0.5 MG; Start 03/15/19 at 15:00 Aspirin (Aspirin) 81 mg DAILY PO Last administered on 03/20/19 08:42; Admin Dose 81 MG; Start 03/16/19 at 09:00 Enoxaparin Sodium (Lovenox) 40 mg DAILY SC Last administered on 03/20/19 08:44; Admin Dose 40 MG; Start 03/17/19 at 09:00 Oxycodone/ Acetaminophen (Percocet (5/ 325)) 1 tab Q4H PRN PO pain 7-10 Last administered on 03/19/19 07:52; Admin Dose 1 TAB; Start 03/18/19 at 11:00 Acetaminophen/ Hydrocodone Bitart ([place] (10/325)) 1 tab Q4H PRN PO MODERATE PAIN LEVEL 4-6; Start 03/18/19 at 11:00 Gabapentin (Neurontin) 300 mg TID PO Last administered on 03/20/19 08:42; Admin Dose 300 MG; Start 03/18/19 at 11:00 Furosemide (Lasix) 20 mg BID DIURETICS PO Last administered on 03/20/19 05:52; Admin Dose 20 MG; Start 03/19/19 at 18:00 XUAN PROCTOR MD Mar 20, 2019 12:00
[2019-03-20] MEDS ORDERED: SENOKOTS PO (12:14)
[2019-03-20] MEDS ORDERED: LEVO137T3 PO (12:14)
[2019-03-20] MEDS ORDERED: INSU100C SQ (12:14)
[2019-03-20] MEDS ORDERED: POLY17PO6 PO (12:14)
[2019-03-20] MEDS ORDERED: GABA300C16 PO (12:14)
[2019-03-20] MEDS ORDERED: LANT3I SQ (12:14)
[2019-03-20] MEDS ORDERED: OXYC-438 PO (12:14)
[2019-03-20] MEDS ORDERED: LAS20 PO (12:14)
[2019-03-20] MEDS ORDERED: ASPI-831 PO (12:14)
--- NOTE | 2019-03-20 12:23 | PDOCDIS ---
Discharge Instructions DIAGNOSIS Discharge Diagnosis 1. Right great toe with gas gangrene s/p I&D 02/21, status post partial hallux amputation done on March 13, 2019 2. Acute hypoxic respiratory failure- resolved 3. Peripheral artery disease s/p R pop-Dp bypass 4. Acute blood loss anemia 5. Poorly controlled diabetes mellitus 6. CAD s/p PCI 7. HTN 8. Hypothyroidism 9. Hyperlipidemia CONDITION [id number] Patient Condition: [id number] Stable HOME CARE INSTRUCTIONS: [id number] Diet Instructions: [id number] Low Fat /Cholesterol ACTIVITY: [id number] Activity Restrictions: [id number] No Restrictions FOLLOW UP/APPOINTMENTS Follow-up Plan 1. Follow up with your primary care physician in 1-2 weeks 2. You will need to follow up with Dr. Rich in wound clinic on Tuesday 3. Take all medications as prescribed 4. You will need to have your PCP follow up on your thyroid studies in 4 weeks to see if any adjustments need to be made. 5. If experiencing any concerning symptoms, please go to your nearest emergency department XUAN PROCTOR MD Mar 20, 2019 12:23
[2019-03-20] MEDS: OXYCODONE/ACETAMINOPHEN (5/325) TAB PO PRN (12:54)
[2019-03-20] MEDS: ACETAMINOPHEN 650MG/20.3ML CUP PO PRN (14:07)
[2019-03-20 15:14] VITALS: BP 97/50; PULSE 65; RESP 20
--- NOTE | 2019-03-20 16:02 | CONS ---
Assessment/Plan Assessment/Plan Hospital Course (Demo Recall) No acute events, alert, feels good Indwelling: Right IJ triple-lumen catheter Antimicrobials: none Microbiology: Right foot wound culture grew REAL and enterococcus species Physical examination: Obese well-developed fragile elderly woman who is alert in no distress. Head atraumatic normocephalic sclera nonicteric neck is supple chest rise symmetrical breath sounds clear heart: S1-S2. Abdomen soft bowel sounds present. Extremities: Right lower extremity dressing intact Assessment: 1. Right foot cellulitis with toe gangrene, s/p right partial hallux amputation 03/13/19 2. Peripheral arterial disease status post abdominal aortogram with right popliteal artery angioplasty 02/23/19, s/p bypass graft 03/09/19 3. Diabetes 4. CHF Plan: Stable, completed abx, will repeat cxr in am consider dc TLC Consultation Date/Type/Reason Admit Date/Time February 20, 2019 at 23:53 Initial Consult Date Type of Consult id Date/Time of Note DATE: 03/20/19 TIME: 16:02 Exam/Review of Systems Exam Vitals Vital Signs Date Temp Pulse Resp B/P (MAP) Pulse Ox O2 O2 Flow FiO2 Time Delivery Rate 03/20/19 100.2 65 20 97/50 (66) 91 15:14 03/20/19 Nasal 2.0 13:33 Cannula Intake and Output 03/19/19 03/19/19 03/20/19 1515:00 23:00 07:00 IntakeIntake Total 240 ml 200 ml OutputOutput Total 1950 ml 1400 ml BalanceBalance 240 ml -1750 ml -1400 ml Results Result Diagram: 03/19/19 0432 03/19/19 0432 Results 24hrs Laboratory Tests Test 03/19/19 17:32 03/19/19 17:46 03/19/19 21:18 03/20/19 07:56 Bedside Glucose 71 88 160 107 Test 03/20/19 08:39 03/20/19 11:57 Bedside Glucose 111 140 Medications Medication Current Medications Ondansetron HCl (Zofran Inj) 4 mg Q6H PRN IV NAUSEA AND/OR VOMITING Last administered on 02/21/19at 06:47; Admin Dose 4 MG; Start 02/21/19 at 01:30 Acetaminophen (Tylenol Liquid) 650 mg Q6H PRN PO PAIN LEVEL 1-3 OR FEVER Last administered on 03/20/19 14:07; Admin Dose 650 MG; Start 02/21/19 at 01:30 Atorvastatin Calcium (Lipitor) 40 mg QHS PO Last administered on 03/19/19 21:20; Admin Dose 40 MG; Start 02/21/19 at 21:00 Carvedilol (Coreg) 3.125 mg BID PO Last administered on 03/20/19 08:43; Admin Dose 3.125 MG; Start 02/21/19 at 09:00 Ferrous Sulfate (Ferrous Sulfate (Ec)) 325 mg QAM PO Last administered on 03/20/19 08:42; Admin Dose 325 MG; Start 02/21/19 at 09:00 Miscellaneous Information 1 ea NOTE XX Last administered on 03/15/19 12:24; Admin Dose 1 EA; Start 02/21/19 at 06:00 Glucose (Glutose) 15 gm Q15M PRN PO DECREASED GLUCOSE; Start 02/21/19 at 06:00 Glucose (Glutose) 22.5 gm Q15M PRN PO DECREASED GLUCOSE; Start 02/21/19 at 06:00 Dextrose (D50w Syringe) 25 ml Q15M PRN IV DECREASED GLUCOSE; Start 02/21/19 at 06:00 Dextrose (D50w Syringe) 50 ml Q15M PRN IV DECREASED GLUCOSE; Start 02/21/19 at 06:00 Glucagon (Glucagen) 1 mg Q15M PRN IM DECREASED GLUCOSE; Start 02/21/19 at 06:00 Glucose (Glutose) 15 gm Q15M PRN BUCCAL DECREASED GLUCOSE; Start 02/21/19 at 06:00 Levothyroxine Sodium (Synthroid) 150 mcg BEFORE BREAKFAST PO Last administered on 03/20/19 05:53; Admin Dose 150 MCG; Start 02/25/19 at 07:00 Senna/Docusate Sodium (Senokot-S) 1 tab BID PRN PO constipation Last administered on 03/12/19 09:01; Admin Dose 1 TAB; Start 02/25/19 at 10:00 Bisacodyl (Dulcolax Supp) 10 mg DAILY PRN [place] CONSTIPATION Last administered on 03/15/19 06:01; Admin Dose 10 MG; Start 02/25/19 at 10:00 Budesonide (Pulmicort (Neb)) 0.5 mg BID RESP THERAPY HHN Last administered on 03/20/19 09:00; Admin Dose 0.5 MG; Start 02/26/19 at 20:00 Famotidine (Pepcid) 20 mg DAILY PO Last administered on 03/20/19 08:42; Admin Dose 20 MG; Start 02/27/19 at 09:00 Guaifenesin/ Codeine Phosphate (Robitussin Ac Liquid Cup) 5 ml Q4H PRN PO cough Last administered on 03/15/19 09:38; Admin Dose 5 ML; Start 03/01/19 at 10:30 Diagnostic Test (Pha) (Accu-Chek) 1 ea 02 XX Last administered on 03/14/19 01:52; Admin Dose 1 EA; Start 03/05/19 at 02:00 Losartan Potassium (Cozaar) 50 mg QPM PO Last administered on 03/19/19 21:20; Admin Dose 50 MG; Start 03/05/19 at 21:00 Insulin Aspart (Novolog Insulin Pen) 10 unit WITH MEALS SC Last administered on 03/20/19 12:04; Admin Dose 10 UNIT; Start 03/05/19 at 11:30 Insulin Glargine (Lantus) 30 units DAILY@2000 SC Last administered on 03/19/19 21:27; Admin Dose 30 UNITS; Start 03/05/19 at 20:00 Hydralazine HCl (Apresoline) 10 mg Q6H PRN IV SBP>160 Last administered on 03/09/19 12:40; Admin Dose 20 MG; Start 03/05/19 at 11:00 Insulin Aspart (Novolog Insulin Pen) NOVOLOG *MILD* ALGORITHM WITH MEALS BEDTIME SC Last administered on 03/19/19 07:59; Admin Dose 1 UNIT; Start 03/09/19 at 17:35 Polyethylene Glycol (Miralax) 17 gm DAILY PRN PO CONSTIPATION Last administered on 03/19/19 17:40; Admin Dose 17 GM; Start 03/13/19 at 14:30 Amlodipine Besylate (Norvasc) 10 mg DAILY PO Last administered on 03/20/19 08:43; Admin Dose 10 MG; Start 03/14/19 at 09:30 Levalbuterol (Xopenex Neb) 1.25 mg Q6H RESP THERAPY HHN Last administered on 13:32; Admin Dose 1.25 MG; Start 03/15/19 at 20:00 Levalbuterol (Xopenex Neb) 1.25 mg Q6H RESP THERAPY PRN HHN wheezing; Start 03/15/19 at 15:00 Ipratropium [place] (Atrovent 0.02% (Neb)) 0.5 mg Q6HWA RESP THERAPY HHN Last administered on 03/20/19 13:32; Admin Dose 0.5 MG; Start 03/15/19 at 20:00 Ipratropium [place] (Atrovent 0.02% (Neb)) 0.5 mg Q6H RESP THERAPY PRN HHN shortness of breath Last administered on 03/18/19 02:05; Admin Dose 0.5 MG; Start 03/15/19 at 15:00 Aspirin (Aspirin) 81 mg DAILY PO Last administered on 03/20/19 08:42; Admin Dose 81 MG; Start 03/16/19 at 09:00 Enoxaparin Sodium (Lovenox) 40 mg DAILY SC Last administered on 03/20/19 08:44; Admin Dose 40 MG; Start 03/17/19 at 09:00 Oxycodone/ Acetaminophen (Percocet (5/ 325)) 1 tab Q4H PRN PO pain 7-10 Last administered on 03/20/19 12:54; Admin Dose 1 TAB; Start 03/18/19 at 11:00 Acetaminophen/ Hydrocodone Bitart ([place] (10/325)) 1 tab Q4H PRN PO MODERATE PAIN LEVEL 4-6; Start 03/18/19 at 11:00 Gabapentin (Neurontin) 300 mg TID PO Last administered on 03/20/19 14:07; Admin Dose 300 MG; Start 03/18/19 at 11:00 Furosemide (Lasix) 20 mg BID DIURETICS PO Last administered on 03/20/19 05:52; Admin Dose 20 MG; Start 03/19/19 at 18:00 TORI GARCIA NP Mar 20, 2019 16:02
--- NOTE | 2019-03-20 18:34 | CONS ---
Assessment/Plan Cardiology NYHA: II Heart Failure Type: Acute Heart Failure Type: Diastolic Assessment/Plan Hospital Course (Demo Recall) Acute decompensated diastolic congestive heart failure-improved Gas gangrene right foot s/p debridement PAD status post lower extremity bypass CAD with history of PCI, most recently December 2017 Diabetes, uncontrolled Hypertension Dyslipidemia Continue maintenance diuretics as renal function blood pressure permits and titrate as needed Cont ASA as tolerated Continue statin therapy as tolerated Counseled patient on importance of medication compliance Consultation Date/Type/Reason Admit Date/Time February 20, 2019 at 23:53 Initial Consult Date Type of Consult Cardiology Date/Time of Note DATE: 03/20/19 TIME: 18:33 24 HR Interval Summary Free Text/Dictation No shortness of breath, chest pain Exam/Review of Systems Vital Signs Vitals Vital Signs Date Temp Pulse Resp B/P (MAP) Pulse Ox O2 O2 Flow FiO2 Time Delivery Rate 03/20/19 2.0 18:10 03/20/19 98.6 17:30 03/20/19 65 20 97/50 (66) 91 15:14 03/20/19 Nasal 13:33 Cannula Intake and Output 03/19/19 03/19/19 03/20/19 1515:00 23:00 07:00 IntakeIntake Total 240 ml 200 ml OutputOutput Total 1950 ml 1400 ml BalanceBalance 240 ml -1750 ml -1400 ml Exam Constitutional: alert, oriented (No apparent distress) Head: normocephalic Respiratory: other (Coarse breath sounds bilaterally, no wheezing) Cardiovascular: regular rate and rhythm (S1-S2 heard) Gastrointestinal: soft, non-tender, bowel sounds Extremities: other (Bandage lower extremity) Labs Result Diagram: 03/19/19 0432 03/19/19 0432 Results 24hrs Laboratory Tests Test 03/19/19 21:18 03/20/19 07:56 03/20/19 08:39 03/20/19 11:57 Bedside Glucose 160 107 111 140 Jeremy Alarcon DO Mar 20, 2019 18:34
--- NOTE | 2019-03-20 19:19 | DS ---
Date/Time of Note Date/Time of Note DATE: 03/20/19 TIME: 19:19 Discharge Summary Admission/Discharge Info Admit Date/Time February 20, 2019 at 23:53 Discharge Date/Time Mar 20, 2019 at 18:10 Discharge Diagnosis 1. Right great toe with gas gangrene s/p I&D 02/21, status post partial hallux amputation done on March 13, 2019 2. Acute hypoxic respiratory failure- resolved 3. Peripheral artery disease s/p R pop-Dp bypass 4. Acute blood loss anemia 5. Poorly controlled diabetes mellitus 6. CAD s/p PCI 7. HTN 8. Hypothyroidism 9. Hyperlipidemia Patient Condition: Stable Consults Vascular Surgery- Dr. Rich Podiatry- Dr. Mendez/Dr. Inman Infectious disease- Dr. Terry Cardiology- Dr. Alarcon Procedures Date/Time of Note Date/Time of Note DATE: 02/21/19 TIME: 21:15 Operative Report Preoperative Diagnosis Right hallux gas gangrene Right hallux diabetic ulcer DM2 with peripheral neuropathy PAD Postoperative Diagnosis Right hallux gas gangrene Right hallux diabetic ulcer DM2 with peripheral neuropathy PAD Operation/Procedure Performed right hallux excisional debridement DATE OF OPERATION: 02/23/2019 PREOPERATIVE DIAGNOSIS: Right 1st toe gangrene. POSTOPERATIVE DIAGNOSIS: Right 1st toe gangrene. PROCEDURE PERFORMED: Abdominal aortogram with right lower extremity runoff and right popliteal artery angioplasty. SURGEON: Baljinder Rich MD DATE OF OPERATION: 03/09/2019 PREOPERATIVE DIAGNOSIS: Right foot gangrene. POSTOPERATIVE DIAGNOSIS: Right foot gangrene. PROCEDURE PERFORMED: Right popliteal to dorsalis pedis bypass using nonreversed greater saphenous vein harvested from the right side. SURGEON: Baljinder Rich MD Date/Time of Note Date/Time of Note DATE: 03/13/19 TIME: 17:11 Operative Report Preoperative Diagnosis Right hallux gangrene Right hallux diabetic ulcer DM2 with peripheral neuropathy PAD Postoperative Diagnosis Right hallux gangrene Right hallux diabetic ulcer DM2 with peripheral neuropathy PAD Operation/Procedure Performed Right partial hallux amputation V-Y advancement flap Hx of Present Illness Chief complaint: Right great toe swelling x4 days this is a 74-year-old female with past medical history of hypertension, diabetes mellitus, hyperlipidemia, hypothyroidism,Arthritis, coronary disease who presents to the emergency department complaining of right toe pain x4 days. Patient reports that she has noticed right great toe swelling and discoloration over the last 4 days. She also has swelling of her anterior foot and tenderness to palpation. She denies any fevers. But does report chills. She has noticed that her great toe has started to become blue. She recently returned from [place]. Allergies: NKDA This is a 74 female being admitted to the ICU floor for: #1 Poorly controlled diabetes mellitus: Patient presents with blood sugars in the 600s. Patient does not appear to be in DKA. Initiate insulin GTT, monitor patient in the ICU. Will downgrade the patient to telemetry once we can better control patient's blood sugars. We will check hemoglobin A 1C. Patient does take Lantus 53 units at night. check a1c. #2 right great toe gas gangrene: X-ray: Infectious process at the right great toe with soft tissue air suggesting gas gangrene. Patient does have tenderness to the right great toe, does appear cyanotic. At the current time with the patient on broad-spectrum antibiotics of vancomycin and Zosyn. await culture results. venous doppler/arterial dopplers of bilateral lower extremities. Consult cardiology for preop clearance. Patient n.p.o. at the current time as patient may likely go to the operative room today if she is cleared by cardiology. #3. Coronary artery disease: History of stents. History of MD. Continue beta- carol, statin. Will consult cardiology for preop clearance. #4 hypertension: Resume patient's home medication #5 diabetes mellitus: We will check hemoglobin A 1C, currently on insulin sliding scale as per #1. #6 hypothyroidism: Continue levothyroxine, check TSH #7 hyperlipidemia: Continue statin, check lipid panel #8 DVT GI prophylaxis: SCDs to the left lower extremity, Protonix Hospital Course Patient was admitted for evaluation of right toe ulcer/gangrene. Podiatry was consulted and patient was taken to surgery for debridement of right toe following cardiac clearance on 02/21. Patient was also initially started on an insulin drip given elevated glucose but titrated off and started on Lantus and ISS. She was seen by hospital educator given elevated A1c. Arterial studies were performed as well with findings of stenosis and Vascular surgery was consulted. She underwent right popliteal to dorsalis pedis bypass 03/09 and tolerated procedure well. She was monitored in the ICU for a few days and transferred to med/surg when bleeding was controlled and vitals stabilized. Patient underwent partial hallux amputation done 03/13/19. Pain was controlled and diabetic regimen was optimized prior to discharge. She was cleared by Podiatry and Vascular surgery for discharge and was discharged to SNF in stable condition. Patient completed a course of antibiotics prior to discharge and no further treatment was needed given the osteomyelitis was surgically removed. Home Meds Active Scripts Sennosides/Docusate Sodium (Dok Plus Tablet) 1 Each Tablet, 1 TAB PO BID PRN for constipation for 30 Days, #60 TAB Prov:XUAN PROCTOR MD 03/20/19 Polyethylene Glycol* (Miralax*) 17 Gm Powd.pack, 17 GM PO DAILY PRN for CONSTIPATION for 30 Days, #30 PACKET Prov:XUAN PROCTOR MD 03/20/19 Furosemide (Lasix) 20 Mg Tab, 20 MG PO BID DIURETICS for 30 Days, #60 TAB Prov:XUAN PROCTOR MD 03/20/19 Gabapentin* (Gabapentin*) 300 Mg Capsule, 300 MG PO TID for 30 Days, #90 CAP Prov:XUAN PROCTOR MD 03/20/19 Aspirin (Aspirin) 81 Mg Chew, 81 MG PO DAILY for 30 Days, #30 TAB Prov:XUAN PROCTOR MD 03/20/19 Oxycodone HCl/Acetaminophen (Oxycodone-Acetaminophen 5-325) 1 Each Tablet, 1 TAB PO Q6 PRN for pain 7-10 for 5 Days, #20 TAB Prov:XUAN PROCTOR MD 03/20/19 Insulin Lispro (Humalog) 100 Unit/1 Ml Cartridge, 10 UNIT SQ QAM for 30 Days, #1 EA Prov:XUAN PROCTOR MD 03/20/19 Levothyroxine Sodium* (Levothyroxine Sodium*) 137 Mcg Tablet, 150 MCG PO BEFORE BREAKFAST, #30 TAB Prov:XUAN PROCTOR MD 03/20/19 Insulin Glargine* (Lantus*) 100 Unit/Ml Soln, 30 UNITS SQ QHS for 30 Days, #1 VIAL Prov:XUAN PROCTOR MD 03/20/19 Reported Medications Amlodipine Besylate* (Amlodipine Besylate*) 10 Mg Tablet, 10 MG PO DAILY, #30 TAB 02/21/19 Losartan Potassium* (Losartan Potassium*) 50 Mg Tablet, 50 MG PO QPM, TAB 5/29/19 Ferrous Sulfate* (Ferrous Sulfate*) 325 Mg Tabec, 325 MG PO QAM, TAB 02/21/19 Montelukast Sodium* (Montelukast Sodium*) 10 Mg Tablet, 10 MG PO QHS, #30 TAB 02/21/19 Cholecalciferol (Vitamin D3) (Vitamin D3) 2,000 Unit Tab.chew, 2000 UNIT PO QPM, TAB.CHEW 02/21/19 Carvedilol* (Carvedilol*) 3.125 Mg Tablet, 3.125 MG PO BID for 90 Days, #180 TK 1 TAB PO BID 02/21/19 Atorvastatin* (Atorvastatin*) 40 Mg Tablet, 40 MG PO QHS for 90 Days, #90 TK 1 T PO QD 02/21/19 Discontinued Reported Medications Docusate Sodium* (Docusate Sodium*) 100 Mg Capsule, 100 MG PO DAILY, #30 CAP 02/21/19 Discontinued Scripts Ibuprofen* (Motrin*) 800 Mg Tab, 800 MG PO Q6H PRN for PAIN AND OR ELEVATED TEMP, #30 TAB Prov:SOPHIE PICHARDO MD 01/15/18 Follow-up Plan 1. Follow up with your primary care physician in 1-2 weeks 2. You will need to follow up with Dr. Rich in wound clinic on Tuesday 3. Take all medications as prescribed 4. You will need to have your PCP follow up on your thyroid studies in 4 weeks to see if any adjustments need to be made. 5. If experiencing any concerning symptoms, please go to your nearest emergency department Primary Care Provider Care Physician No Primary Time spent on discharge: > 30 minutes Pending Labs Laboratory Tests Test 03/19/19 21:18 03/20/19 07:56 03/20/19 08:39 03/20/19 11:57 Bedside 160 107 111 140 Glucose mg/dL (70-220) mg/dL (70-220) mg/dL (70-220) mg/dL (70-220) XUAN PROCTOR MD Mar 20, 2019 19:19
== END 2019-03-20 18:10 | DRG 252 ==
LOC: E/R 20:00 → 6WM 23:53 → EDBEDREQSVC 02-21 06:41 → 6WM 02-22 06:21 → PP2 02-22 18:57 → ICU 03-09 15:00 → TEL 03-11 17:38 → PP2 03-18 12:05
PROVIDERS: ADMIT Family Medicine; ATTEND Internal Medicine
PROC: 0JBQ0ZZ Excision of Right Foot Subcutaneous Tissue and Fascia, Open Approach (ICD-10-PCS; 2019-02-20)
PROC: B410YZZ Fluoroscopy of Abdominal Aorta using Other Contrast (ICD-10-PCS; 2019-02-23)
PROC: 047M3ZZ Dilation of Right Popliteal Artery, Percutaneous Approach (ICD-10-PCS; principal; 2019-02-23 10:00)
PROC: 06BP0ZZ Excision of Right Saphenous Vein, Open Approach (ICD-10-PCS; 2019-03-09)
PROC: 041 Lower Arteries, Bypass (ICD-10-PCS; 2019-03-09)
PROC: 30233N1 Transfusion of Nonautologous Red Blood Cells into Peripheral Vein, Percutaneous Approach (ICD-10-PCS; 2019-03-10)
PROC: 0Y6P0Z1 Detachment at Right 1st Toe, High, Open Approach (ICD-10-PCS; 2019-03-13)
PROC: 0HXMXZZ Transfer Right Foot Skin, External Approach (ICD-10-PCS; 2019-03-13)
DX: E11.52 Type 2 diabetes mellitus with diabetic peripheral angiopathy with gangrene (principal); A48.0 Gas gangrene; J96.01 Acute respiratory failure with hypoxia; J18.9 Pneumonia, unspecified organism; I50.33 Acute on chronic diastolic (congestive) heart failure; D62 Acute posthemorrhagic anemia; L03.115 Cellulitis of right lower limb; M86.8X7 Other osteomyelitis, ankle and foot; E11.10 Type 2 diabetes mellitus with ketoacidosis without coma; E11.65 Type 2 diabetes mellitus with hyperglycemia; E11.621 Type 2 diabetes mellitus with foot ulcer; L97.519 Non-pressure chronic ulcer of other part of right foot with unspecified severity; Z79.4 Long term (current) use of insulin; I25.10 Atherosclerotic heart disease of native coronary artery without angina pectoris; E03.9 Hypothyroidism, unspecified; E78.5 Hyperlipidemia, unspecified; L03.031 Cellulitis of right toe; E66.01 Morbid (severe) obesity due to excess calories; Z68.29 Body mass index [BMI] 29.0-29.9, adult; I73.9 Peripheral vascular disease, unspecified; Z95.5 Presence of coronary angioplasty implant and graft; E11.42 Type 2 diabetes mellitus with diabetic polyneuropathy; I11.0 Hypertensive heart disease with heart failure
CPT/HCPCS: 36415; 36430; 36600; 37224; 71045; 71250; 73590; 73630; 73660; 73718; 75630; 80048; 80053; 80061; 80069; 81003; 82803; 82962; 83036; 83605; 83690; 83735; 83880; 84100; 84436; 84439; 84443; 84481; 85014; 85018; 85025; 85610; 85730; 86850; 86900; 86901; 86920; 87070; 87075; 87081; 87086; 87102; 88304; 88305; 88311; 93005; 93306; 93922; 93970; 94640; 94664; 96374; 96375; 97110; 97116; 97162; 97530; C1725; C1769; C1887; J0290; J0360; J0456; J0690; J1170; J1644; J1650; J1815; J1940; J2060; J2250; J2270; J2405; J2543; J2920; J2930; J3010; J3370; J3475; J7030; J7040; J7042; J7050; J7120; J7512; P9016; Q9967